=== PATIENT | male | born 1965 | race Caucasian/White ===

== ENCOUNTER 2019-09-25 17:37 | Emergency (ER) | payer MEDICAID ==
[~2019-09-25] VITALS: Ht 185.4 cm; Wt 106.6 kg
--- OUTSIDE RECORDS SUMMARY | ~2019-09-25 | XMS | Continuity of Care Document ---
Demographics + + + | Address | [address] | | | [place] [address] | + + + | Home Phone | | + + + | Preferred Language | Unknown | + + + | Marital Status | Unknown | + + + | Scientology Affiliation | Unknown | + + + | Race | Unknown | + + + | Ethnic Group | Unknown | + + + Author + + + | Author | [facility] | + + + | Organization | [facility] | + + + | Address | [address] | | | [place] [address] | + + + | Phone | Unavailable | + + + Support + + + + + | Name | Relationship | Address | Phone | + + + + + | SRAVAN Richardson | Caregiver | [facility] | | | [place] | | [place], | | | | | [place] [address] | | + + + + + | Provider, ED | Caregiver | [address] | Unavailable | | | | [facility], [place] | | | | | [address] | | + + + + + | IOANA CAMPO PCP | Caregiver | [address] | | | | | [place], [place] | | | | | [address] | | + + + + + | JAYME KIRK | Next Of Kin | [place] [address] | | + + + + + Care Team Providers + + + + | Care Digital Asset Coordinator Name | Role | Phone | + + + + | IOANA CAMPO PCP | Unavailable | | + + + + Insurance Providers + + + + + | Payer Name | Policy Number | Subscriber Name | Relationship | + + + + + | [employer] | [id number] | BOBBY STODDARD | SELF | + + + + + Chief Complaint and Reason for Visit + + + | Reason for Visit | R HIP INJ FELL ON ICE | + + + Problems Active Medical Problems + + + +--------+ | Problem | Onset Date | Recorded Date | Status | + + + +--------+ | Bronchitis | Unknown | 01/13/15 | Active | + + + +--------+ | Tobacco use | Unknown | 01/16/15 | Active | | disorder | | | | + + + +--------+ | Cough | Unknown | 01/25/15 | Active | + + + +--------+ | SOB (shortness of | Unknown | 01/25/15 | Active | | breath) | | | | + + + +--------+ | Rectal fissure | Unknown | 03/01/15 | Active | + + + +--------+ | Fall | Unknown | 01/18/16 | Active | + + + +--------+ | Contusion, hip | Unknown | 01/18/16 | Active | + + + +--------+ | Pancreatitis | Unknown | 01/29/16 | Active | + + + +--------+ | Hip pain | Unknown | 05/20/16 | Active | + + + +--------+ Medications Current Home Medications + +------+-------+-------+ + + + + | Medicati | Dose | Units | Route | Directio | Days/Qty | Instruct | Start | | on | | | | ns | | ions | Date | + +------+-------+-------+ + + + + | Cycloben | 5 | MG | PO | Twice | 5 | | 05/20/16 | | zaprine | | | | Each Day | | | | | HCL | | | | | | | | | (Flexeri | | | | | | | | | l) 5 MG | | | | | | | | | TABLET | | | | | | | | + +------+-------+-------+ + + + + | Ibuprofe | 800 | MG | PO | Three | | | | | n | | | | Times a | | | | | (Motrin) | | | | Day | | | | | 800 MG | | | | | | | | | TAB | | | | | | | | + +------+-------+-------+ + + + + | Ibuprofe | 800 | MG | PO | Three | 15 | | / | | n | | | | Times a | | | | | (Motrin) | | | | Day PRN | | | | | 800 MG | | | | Pain | | | | | TAB | | | | | | | | + +------+-------+-------+ + + + + | Naproxen | 220 | MG | PO | Daily | | | | | Sodium | | | | | | | | | (Aleve) | | | | | | | | | 220 MG | | | | | | | | | TAB | | | | | | | | + +------+-------+-------+ + + + + Past Home Medications + + + + + | Medication | Directions | Ordered | Status | + + + + + | Albuterol (Ventolin | Every 6 Hours PRN | 01/13/15 | Discontinued | | Hfa) 90 Mcg Inh | SOB | | | | Inh, 1-2 Act Inh | | | | + + + + + | Amoxicillin 500 Mg | Q8H | 05/07/03 | Discontinued | | Cap Cap, 500 Mg Po | | | | + + + + + | Cephalexin | Four Times a Day | 12/01/04 | Discontinued | | Monohydrate | | | | | (Keflex) 500 Mg Cap | | | | | Cap, 500 Mg Po | | | | + + + + + | Clindamycin Hcl | Every 6 Hours For | 11/16/13 | Discontinued | | (Cleocin Hcl) 300 | infection | | | | Mg Capsule Capsule, | | | | | 300 Mg Po | | | | + + + + + | Clotrimazole | Twice Each Day | 04/11/06 | Discontinued | | (Lotrimin) 1 % Cr | | | | | Cr, 0 Dose Top | | | | + + + + + | Docusate Sodium | Three Times a Day | 03/01/15 | Discontinued | | (Colace) 100 Mg | For Constipation | | | | Capsule Capsule, | | | | | 100 Mg Po | | | | + + + + + | Doxycycline | Twice Each Day | 01/13/15 | Discontinued | | Monohydrate | | | | | (Monodox) 100 Mg | | | | | Capsule Capsule, | | | | | 100 Mg Po | | | | + + + + + | Esomeprazole Mag | | Unknown | Discontinued | | Trihydrate (Nexium) | | | | | 20 Mg Capsule. | | | | | Capsule., | | | | + + + + + | Hydrocodone | Every 4 Hours as | 01/13/15 | Discontinued | | Bit/Acetaminophen | Needed PRN PAIN | | | | ([place] 5-325 | | | | | Tablet) 1 Each | | | | | Tablet Tablet, 1-2 | | | | | Tab Po | | | | + + + + + | Hydrocodone/Acetami | | Unknown | Discontinued | | nophen ([place] | | | | | 5MG-325MG) 5 Mg/325 | | | | | Mg Tab Tab, | | | | + + + + + | Hydrocodone/Acetami | Every 4-6 Hours PRN | 01/13/05 | Discontinued | | nophen (Vicodin) 5 | Pain | | | | Mg/500 Mg Tab Tab, | | | | | 1-2 Tab Po | | | | + + + + + | Hydrocodone/Acetami | Every 4-6 Hours PRN | 11/25/04 | Discontinued | | nophen (Vicodin) 5 | Pain | | | | Mg/500 Mg Tab Tab, | | | | | 1 Tab Po | | | | + + + + + | Hydrocodone/Acetami | Every 4-6 Hours PRN | 05/07/03 | Discontinued | | nophen (Vicodin) 5 | Pain | | | | Mg/500 Mg Tab Tab, | | | | | 1 Tab Po | | | | + + + + + | Hydrocodone/Acetami | Every 4-6 Hours PRN | 12/01/04 | Discontinued | | nophen 10-325 Mg | Pain | | | | ([place] 10-325 Mg) | | | | | 10 Mg/325 Mg Tab | | | | | Tab, 0.5-1 Tab Po | | | | + + + + + | Hydrocortisone/Pram | 5 Times Each Day | 03/01/15 | Discontinued | | oxine | PRN rectal pain | | | | (Proctofoam-Hc) 10 | | | | | Gm Foam Foam, 1 | | | | | Applic Top | | | | + + + + + | Inhaler, Assist | Every 6 Hours | 01/13/15 | Discontinued | | Devices (Space | | | | | Chamber Plus) 1 | | | | | Each Spacer Spacer, | | | | | 1 Each Mc | | | | + + + + + | Medical Equipment | As Directed | 02/09/07 | Discontinued | | (Crutches- Sprain | | | | | Ankle/Foot) Device | | | | | Device, 0 Use | | | | + + + + + | Naproxen (Naprosyn) | Twice Each Day For | 12/11/13 | Discontinued | | 500 Mg Tablet | PAIN | | | | Tablet, 500 Mg Po | | | | + + + + + | No Historical | | Unknown | Discontinued | | Medications . ., | | | | + + + + + | No Historical | | Unknown | Discontinued | | Medications . ., | | | | + + + + + | Oxycodone | Every 6 Hours PRN | 01/29/16 | Discontinued | | Hcl/Acetaminophen | Pain | | | | (Percocet 5-325 Mg | | | | | Tablet) 1 Each | | | | | Tablet Tablet, 1 | | | | | Tab Po | | | | + + + + + | Oxycodone/Acetamino | Every 4-6 Hours PRN | 02/09/07 | Discontinued | | phen (Percocet) 5 | Pain | | | | Mg/325 Mg Tab Tab, | | | | | 1-2 Tab Po | | | | + + + + + | Phe/Shark Liver | 5 Times Each Day | 03/01/15 | Discontinued | | Oil/Glycer/Pet | PRN rectal pain | | | | (Preparation H) 54 | | | | | Gm Cr Cr, 1 Applic | | | | | Pr | | | | + + + + + | Prednisone 20 Mg | Daily For | 01/25/15 | Discontinued | | Tablet Tablet, 40 | INFLAMMATION | | | | Mg Po | | | | + + + + + | Prednisone 20 Mg | DAILY X 4 DAYS For | 01/16/15 | Discontinued | | Tablet Tablet, 40 | INFLAMMATION | | | | Mg Po | | | | + + + + + | Rx Prepack | Every 4 Hours as | 12/03/05 | Discontinued | | Oxycodone/Acetamin | Needed | | | | (Percocet Prepack) | | | | | 5 Mg/325 Mg Tab | | | | | Tab, 1 Tab Po | | | | + + + + + | Verapamil Hcl | | Unknown | Discontinued | | (Verelan Pm) 100 Mg | | | | | Capcr Capcr, | | | | + + + + + Social History + + + + + | Query | Response | Start Date | Stop Date | + + + + + | Smoking status/ | Former Smoker | | | + + + + + Hospital Discharge Instructions No hospital discharge instructions. Plan of Care + + ----+ | Discharge Date | 05/20/16 | + + ----+ | Disposition | HOME | + + ----+ | Condition at Discharge | Good | + + ----+ | Instructions/Education Provided | Generic Hip Exercises-SportsMed | | | Hip Pain | | | Fall Prevention in the Home | + + ----+ | Forms Provided | ARCHITRAVE CONSENT | + + ----+ | Prescriptions | See Medications Section | + + ----+ | Referrals | NO PCP DOCTOR - | + + ----+ | Additional Instructions/Education | Follow up with your Primary Provider in | | | 1-2 days. If your symptoms worsen return | | | to the Emergency Department immediately. | | | Take medication as prescribed. DO NOT take | | | Motrin with Aleve. Take medication with | | | food. Drink fluids. | | |DO NOT take Motrin with Aleve. Take medication with audra d. | | | | | |Drink fluids. | + + ----+ Functional Status No functional status results. Allergies, Adverse Reactions, Alerts + +---------+ + +--------+ + | Allergen | Type | Severity | Reaction | Status | Last Updated | + +---------+ + +--------+ + | Sulfa | Allergy | Unknown | HIVES | Active | 05/20/16 | | (Sulfonamide | | | | | | | | | | | | | | Antibiotics) | | | | | | + +---------+ + +--------+ + | codeine | Allergy | Unknown | Hives | Active | 05/20/16 | + +---------+ + +--------+ + Immunizations No Known History of Immunizations. Vital Signs + + + + | Vital Reading | Collection Date/Time | Result | + + + + | Blood Pressure | 05/20/16 4:04pm | 148/89 | + + + + | Patient Temperature | 05/20/16 4:04pm | 97.5 | + + + + | Temperature Source | 05/20/16 4:04pm | Temporal | + + + + | Respiratory Rate | 05/20/16 4:04pm | 18 | + + + + | Pulse Rate | 05/20/16 4:04pm | 85 | + + + + | Bedside Pulse Oximetry | 01/20/17 4:04pm | 95 | + + + + | Height | 05/20/16 4:04pm | 6 ft 1 in | + + + + | Weight | 05/20/16 4:04pm | 108.86 kg | + + + + | Weight | 05/20/16 4:04pm | 240 lb | + + + + | Body Mass Index | 05/20/16 4:04pm | 31.7 | + + + + Results No known relevant diagnostic tests, laboratory data and/or discharge summary. Procedures No Known History of Procedures. Encounters + + + + + + | Encounter | Location | Arrival/Admit | Discharge/Depar | Attending | | | | Date | t Date | Provider | + + + + + + | Departed | [facility] | 05/20/16 2:38pm | 05/20/16 6:45pm | SRAVAN Richardson | | Emergency | [facility] | | | [place] | + + + + + + + + | Encounter Diagnosis | + + | Falls | + + | Hip pain | + +"
--- OUTSIDE RECORDS SUMMARY | ~2019-09-25 | XMS | Clinical Summary ---
Demographics + + + | Address | [address] | | | [place] [address] | + + + | Home Phone | | + + + | Preferred Language | Unknown | + + + | Marital Status | S | + + + | Yazidi Affiliation | Unknown | + + + | Race | White | + + + | Ethnic Group | Not or | + + + Author + + + | Author | [facility] | + + + | Organization | [facility] | + + + | Address | [address] | | | [place] [address] | + + + | Phone | Unavailable | + + + Care Team Providers + +------+ + | Care Talent Acquisition Specialist Name | Role | Phone | + +------+ + | Marisel Hunt | PCP | | + +------+ + Conditions or Problems +---------+---------+---------+---------+---------+---------+---------+---------+---------+ | Problem | Problem | Onset | Status | Entry | Provide | Comment | Standar | Annotat | | Name | Code | Date | | Date | r | | d | e | | | | | | | | | Descrip | | | | | | | | | | tion | | +---------+---------+---------+---------+---------+---------+---------+---------+---------+ | ANAL | [id number] | | Active | | Marielle | | Anal | per | | FISSURE | 6 | /30 | | /30 | Kobe | | fissure | Alexander | | | (SNOMED | | | | CCMA | | | [place] | | | CT) | | | | | | | MD | +---------+---------+---------+---------+---------+---------+---------+---------+---------+ | LESION | [id number] | | Active | | David | | Nasal | | | OF | | | | / | Chicker | | septum | | | NASAL | (SNOMED | | | | ing [place] | | finding | | | SEPTUM | CT) | | | | | | | | +---------+---------+---------+---------+---------+---------+---------+---------+---------+ | HIP | [id number] | | Active | | Prabhakar | | Hip | | | PAIN, | 2 | /26 | | /26 | | | pain | | | LEFT | (SNOMED | | | | VanAnro | | | | | | CT) | | | | oy MD | | | | +---------+---------+---------+---------+---------+---------+---------+---------+---------+ | CONTROL | [id number] | | Active | | Marisel | | Drug | | | LED | 03 | /19 | | /19 | Rubio | | therapy | | | SUBSTAN | (SNOMED | | | | COMPANY MANAGER | | | | | CE | CT) | | | | | | finding | | | AGREEME | | | | | | | | | | NT | | | | | | | | | | SIGNED | | | | | | | | | +---------+---------+---------+---------+---------+---------+---------+---------+---------+ | NASAL | [id number] | | Active | | Marisel | | Mass of | | | MASS | 09 | /19 | | /19 | Rubio | | nose | | | | (SNOMED | | | | COMPANY MANAGER | | | | | | CT) | | | | | | | | +---------+---------+---------+---------+---------+---------+---------+---------+---------+ | COSTOCH | [id number] | | Active | | Marisel | | Costal | | | ONDRITI | 4 | / | | | Rubio | | chondri | | | S, LEFT | (SNOMED | | | | COMPANY MANAGER | | tis | | | | CT) | | | | | | | | +---------+---------+---------+---------+---------+---------+---------+---------+---------+ | URI | [id number] | | Active | | Marisel | | Upper | | | | 9 | | | | Rubio | | respira | | | | (SNOMED | | | | COMPANY MANAGER | | tory | | | | CT) | | | | | | infecti | | | | | | | | | | on | | +---------+---------+---------+---------+---------+---------+---------+---------+---------+ | RIB | [id number] | | Active | | Marisel | | Rib | | | PAIN ON | 02 | | | | Rubio | | pain | | | LEFT | (SNOMED | | | | COMPANY MANAGER | | | | | SIDE | CT) | | | | | | | | +---------+---------+---------+---------+---------+---------+---------+---------+---------+ | POST- | [id number] | | Active | | Marisel | | Postvir | | | RAL | 04 | / | | / | Rubio | | al | | | COUGH | (SNOMED | | | | COMPANY MANAGER | | cough | | | SYNDROM | CT) | | | | | | | | | E | | | | | | | | | +---------+---------+---------+---------+---------+---------+---------+---------+---------+ | EPISTAX | [id number] | | Active | | David | | Epistax | | | IS, | 1 | / | | | Chicker | | is | | | RECURRE | (SNOMED | | | | ing [place] | | | | | NT | CT) | | | | | | | | +---------+---------+---------+---------+---------+---------+---------+---------+---------+ | NASAL | [id number] | | Active | | David | | Nasal | | | POLYP | 5 | | | | Chicker | | polyp | | | | (SNOMED | | | | ing [place] | | | | | | CT) | | | | | | | | +---------+---------+---------+---------+---------+---------+---------+---------+---------+ | BRONCHI | [id number] | | Active | | David | | Bronchi | | | TIS | 4 | /19 | | /19 | Chicker | | tis | | | | (SNOMED | | | | ing [place] | | | | | | CT) | | | | | | | | +---------+---------+---------+---------+---------+---------+---------+---------+---------+ | ACUTE | [id number] | | Active | | David | | Common | | | NASOPHA | 6 | /19 | | /19 | Chicker | | cold | | | RYNGITI | (SNOMED | | | | ing [place] | | | | | S | CT) | | | | | | | | +---------+---------+---------+---------+---------+---------+---------+---------+---------+ | ADJUSTM | [id number] | | Active | | Mariah | | Adjustm | | | ENT | 0 | /24 | | / | Kayleigh | | ent | | | DISORDE | (SNOMED | | | | CSWA | | disorde | | | R WITH | CT) | | | | | | r with | | | ANXIETY | | | | | | | anxious | | | | | | | | | | mood | | +---------+---------+---------+---------+---------+---------+---------+---------+---------+ | CHRONIC | [id number] | | Active | | Faina | | Chronic | | | PAIN | | / | | / | [place] | | pain | | | SYNDROM | (SNOMED | | | | SAWMILL MOULDER OPERATOR | | syndrom | | | E | CT) | | | | | | e | | +---------+---------+---------+---------+---------+---------+---------+---------+---------+ | PAIN | [id number] | | Active | | Faina | | Psychal | | | DISORDE | | / | | / | [place] | | urban | | | R | (SNOMED | | | | SAWMILL MOULDER OPERATOR | | | | | ASSOCIA | CT) | | | | | | | | | FREDA | | | | | | | | | | WITH | | | | | | | | | | PSYCHOL | | | | | | | | | | OGICAL | | | | | | | | | | FACTORS | | | | | | | | | +---------+---------+---------+---------+---------+---------+---------+---------+---------+ | ANEMIA | [id number] | | Active | | Florecita | | Anemia | | | | 00 | /27 | | /27 | Suhr | | | | | | (SNOMED | | | | COMPANY MANAGER-C | | | | | | CT) | | | | | | | | +---------+---------+---------+---------+---------+---------+---------+---------+---------+ | APHTHOU | [id number] | | Active | | Charlen | | Aphthou | | | S ULCER | | | | | e Pimentel | | s ulcer | | | OF | (SNOMED | | | | CCMA | | of | | | MOUTH | CT) | | | | | | mouth | | +---------+---------+---------+---------+---------+---------+---------+---------+---------+ | DIFFICU | [id number] | | Active | | Nayan | | Walking | | | LTY IN | 08 | /20 | | /20 | Hersche | | | | | WALKING | (SNOMED | | | | r DO | | disabil | | | | CT) | | | | | | ity | | +---------+---------+---------+---------+---------+---------+---------+---------+---------+ | TOTAL | [id number] | | Active | | Florecita | | Total | | | HIP | 7 | /17 | | /17 | Suhr | | replace | | | ARTHROP | (SNOMED | | | | COMPANY MANAGER-C | | ment of | | | LASTY, | CT) | | | | | | hip | | | LEFT | | | | | | | | | +---------+---------+---------+---------+---------+---------+---------+---------+---------+ | OSTEOAR | M19.90 | | Resolve | | Florecita | | Unspeci | | | THROSIS | (ICD-10 | /02 | d | /02 | Suhr | | fied | | | , | -CM) | | | | COMPANY MANAGER-C | | osteoar | | | LOCALIZ | | | | | | | thritis | | | ED, NOT | | | | | | | , | | | | | | | | | | unspeci | | | SPECIFI | | | | | | | fied | | | ED | | | | | | | site | | | WHETHER | | | | | | | | | | | | | | | | | | | | PRIMARY | | | | | | | | | | OR | | | | | | | | | | SECONDA | | | | | | | | | | RY, | | | | | | | | | | INVOLVI | | | | | | | | | | NG | | | | | | | | | | ANKLE | | | | | | | | | | AND | | | | | | | | | | FOOT | | | | | | | | | +---------+---------+---------+---------+---------+---------+---------+---------+---------+ | FOOT | [id number] | | Resolve | | Florecita | | Foot | | | PAIN, | 7 | /15 | d | /15 | Suhr | | pain | | | RIGHT | (SNOMED | | | | COMPANY MANAGER-C | | | | | | CT) | | | | | | | | +---------+---------+---------+---------+---------+---------+---------+---------+---------+ | RECTAL | [id number] | | Resolve | | Florecita | | Rectal | per | | BLEEDIN | 2 | / | d | /15 | Suhr | | hemorrh | Sacred | | G | (SNOMED | | | | COMPANY MANAGER-C | | age | Heart | | | CT) | | | | | | | [facility] | | | | | | | | | | nd ER | | | | | | | | | | visit | | | | | | | | | | 05/11/14 | +---------+---------+---------+---------+---------+---------+---------+---------+---------+ | ANAL | [id number] | | Resolve | | Florecita | | Anal | per Dr. | | FISSURE | 6 | /30 | d | /30 | Suhr | | fissure | Alexander | | | (SNOMED | | | | COMPANY MANAGER-C | | | [place] | | | CT) | | | | | | | MD | +---------+---------+---------+---------+---------+---------+---------+---------+---------+ | NEW | [id number] | | Resolve | | Florecita | | Procedu | | | PATIENT | 03 | /24 | d | /24 | Suhr | | re | | | | (SNOMED | | | | COMPANY MANAGER-C | | carried | | | CONSULT | CT) | | | | | | out on | | | ATION | | | | | | | | | | | | | | | | | subject | | +---------+---------+---------+---------+---------+---------+---------+---------+---------+ | AVASCUL | [id number] | | Active | | Prabhakar | | Avascul | | | AR | 03 | / | | / | | | ar | | | NECROSI | (SNOMED | | | | VanMarinero | | necrosi | | | S OF | CT) | | | | oy MD | | s of | | | FEMORAL | | | | | | | the | | | HEAD | | | | | | | head of | | | | | | | | | | femur | | +---------+---------+---------+---------+---------+---------+---------+---------+---------+ | URI | [id number] | | Inactiv | | Loraine | | Upper | | | | 9 | /03 | e | /03 | Sutherland | | respira | | | | (SNOMED | | | | PA-C | | tory | | | | CT) | | | | | | infecti | | | | | | | | | | on | | +---------+---------+---------+---------+---------+---------+---------+---------+---------+ | HYPERTE | [id number] | | Active | | Rudy | | Hyperte | | | NSION | 3 | | | | Monteir | | nsive | | | | (SNOMED | | | | o MD | | disorde | | | | CT) | | | | | | r | | +---------+---------+---------+---------+---------+---------+---------+---------+---------+ | ELEVATE | [id number] | | Active | | Rudy | | Hypergl | | | D BLOOD | 7 | / | | | Monteir | | ycemia | | | SUGAR | (SNOMED | | | | o MD | | | | | | CT) | | | | | | | | +---------+---------+---------+---------+---------+---------+---------+---------+---------+ | NEW | [id number] | | Removed | | Rudy | | Procedu | | | PATIENT | 03 | | | | Monteir | | re | | | | (SNOMED | | | | o MD | | carried | | | CONSULT | CT) | | | | | | out on | | | ATION | | | | | | | | | | | | | | | | | subject | | +---------+---------+---------+---------+---------+---------+---------+---------+---------+ | SCREENI | [id number] | | Resolve | | Rudy | | Alcohol | | | NG FOR | | | d | | Monteir | | | | | ALCOHOL | (SNOMED | | | | o MD | | consump | | | ISM | CT) | | | | | | tion | | | | | | | | | | screeni | | | | | | | | | | ng | | +---------+---------+---------+---------+---------+---------+---------+---------+---------+ | SCREENI | [id number] | | Resolve | | Rudy | | Alcohol | | | NG FOR | | | d | | Monteir | | | | | ALCOHOL | (SNOMED | | | | o MD | | consump | | | ISM | CT) | | | | | | tion | | | | | | | | | | screeni | | | | | | | | | | ng | | +---------+---------+---------+---------+---------+---------+---------+---------+---------+ | NICOTIN | [id number] | | Active | | Prabhakar | | Nicotin | | | E | 8 | /08 | | /08 | | | e | | | ADDICTI | (SNOMED | | | | VanAnro | | depende | | | ON | CT) | | | | oy MD | | nce | | +---------+---------+---------+---------+---------+---------+---------+---------+---------+ | ASEPTIC | [id number] | | Inactiv | | Ann | | Aseptic | | | | 05 | / | e | /28 | Yarbrou | | | | | NECROSI | (SNOMED | | | | gh RN | | necrosi | | | S OF | CT) | | | | | | s of | | | LEFT | | | | | | | bone of | | | HIP | | | | | | | hip | | +---------+---------+---------+---------+---------+---------+---------+---------+---------+ | URI | [id number] | | Inactiv | | Phan | | Upper | | | | 9 | / | e | | Middlek | | respira | | | | (SNOMED | | | | auff | | tory | | | | CT) | | | | COMPANY MANAGER | | infecti | | | | | | | | | | on | | +---------+---------+---------+---------+---------+---------+---------+---------+---------+ | SORE | [id number] | | Inactiv | | Phan | | Pain in | | | THROAT | 03 | /19 | e | /19 | Middlek | | throat | | | | (SNOMED | | | | auff | | | | | | CT) | | | | COMPANY MANAGER | | | | +---------+---------+---------+---------+---------+---------+---------+---------+---------+ | OTHER | [id number] | | Active | | Prabhakar | | Bone | | | OSTEONE | 03 | /05 | | /05 | | | necrosi | | | CROSIS, | (SNOMED | | | | VanAnro | | s | | | LEFT | CT) | | | | oy MD | | | | | FEMUR | | | | | | | | | +---------+---------+---------+---------+---------+---------+---------+---------+---------+ | OPIOID | [id number] | | Active | | Phan | | Nondepe | | | ABUSE, | 05 | /28 | | /28 | Middlek | | ndent | | | CONTINU | (SNOMED | | | | auff | | opioid | | | OUS | CT) | | | | COMPANY MANAGER | | abuse, | | | | | | | | | | continu | | | | | | | | | | ous | | +---------+---------+---------+---------+---------+---------+---------+---------+---------+ | HIP | [id number] | | Active | | Phan | | Hip | | | PAIN, | 2 | /28 | | /28 | Middlek | | pain | | | LEFT | (SNOMED | | | | auff | | | | | | CT) | | | | COMPANY MANAGER | | | | +---------+---------+---------+---------+---------+---------+---------+---------+---------+ | UPPER | [id number] | | Inactiv | | Malachi K | | Viral | | | RESPIRA | 04 | /17 | e | /17 | Dye | | upper | | | TORY | (SNOMED | | | | ACNP | | respira | | | INFECTI | CT) | | | | | | tory | | | ON, | | | | | | | tract | | | VIRAL | | | | | | | infecti | | | | | | | | | | on | | +---------+---------+---------+---------+---------+---------+---------+---------+---------+ | BRACHIA | [id number] | | Inactiv | | Malachi Levin | | Brachia | | | L | | | e | | Dye | | l | | | NEURITI | (SNOMED | | | | ACNP | | neuriti | | | S OR | CT) | | | | | | s | | | RADICUL | | | | | | | | | | ITIS | | | | | | | | | | NOS | | | | | | | | | +---------+---------+---------+---------+---------+---------+---------+---------+---------+ | RIB | [id number] | | Inactiv | | Malachi Levin | | Rib | | | PAIN | | | | | Dye | | pain | | | | (SNOMED | | | | ACNP | | | | | | CT) | | | | | | | | +---------+---------+---------+---------+---------+---------+---------+---------+---------+ | LESION | [id number] | | Active | | Clementina | | Plantar | | | OF | 04 | / | | /02 | | | nerve | | | PLANTAR | (SNOMED | | | | Reppenh | | lesion | | | NERVE | CT) | | | | agen RN | | | | +---------+---------+---------+---------+---------+---------+---------+---------+---------+ | OSTEOAR | M19.90 | | Removed | | Clementina | | Unspeci | | | THROSIS | (ICD-10 | / | | /02 | | | fied | | | , | -CM) | | | | Reppenh | | osteoar | | | LOCALIZ | | | | | agen RN | | thritis | | | ED, NOT | | | | | | | , | | | | | | | | | | unspeci | | | SPECIFI | | | | | | | fied | | | ED | | | | | | | site | | | WHETHER | | | | | | | | | | | | | | | | | | | | PRIMARY | | | | | | | | | | OR | | | | | | | | | | SECONDA | | | | | | | | | | RY, | | | | | | | | | | INVOLVI | | | | | | | | | | NG | | | | | | | | | | ANKLE | | | | | | | | | | AND | | | | | | | | | | FOOT | | | | | | | | | +---------+---------+---------+---------+---------+---------+---------+---------+---------+ | ANAL | [id number] | | Removed | | Karissa | | Anal | per | | FISSURE | 6 | | | /30 | Sea | | fissure | Alexander | | | (SNOMED | | | | RN | | | [place] | | | CT) | | | | | | | MD | +---------+---------+---------+---------+---------+---------+---------+---------+---------+ | RECTAL | [id number] | | Removed | | Rodrigo | | Rectal | per | | BLEEDIN | 2 | / | | / | Steiner | | hemorrh | Sacred | | G | (SNOMED | | | | on | | age | Heart | | | CT) | | | | | | | [facility] | | | | | | | | | | nd ER | | | | | | | | | | visit | | | | | | | | | | 05/11/14 | +---------+---------+---------+---------+---------+---------+---------+---------+---------+ | SCREENI | [id number] | | Removed | | Juan | | Alcohol | | | NG FOR | | | | | Vishal | | | | | ALCOHOL | (SNOMED | | | | s DO | | consump | | | ISM | CT) | | | | | | tion | | | | | | | | | | screeni | | | | | | | | | | ng | | +---------+---------+---------+---------+---------+---------+---------+---------+---------+ | SCREENI | [id number] | | Removed | | Andriy | | Alcohol | | | NG FOR | | | | | Padovic | | | | | ALCOHOL | (SNOMED | | | | h COMPANY MANAGER | | consump | | | ISM | CT) | | | | | | tion | | | | | | | | | | screeni | | | | | | | | | | ng | | +---------+---------+---------+---------+---------+---------+---------+---------+---------+ | FOOT | [id number] | | Removed | | Skye | | Foot | | | PAIN, | 7 | /15 | | /15 | Epifanio | | pain | | | RIGHT | (SNOMED | | | | COMPANY MANAGER | | | | | | CT) | | | | | | | | +---------+---------+---------+---------+---------+---------+---------+---------+---------+ Medications + + + + + + + + | Medication | Instructio | Start Date | Stop Date | Generic | NDC | Provider | | | ns | | | Name | | | + + + + + + + + | BISAC-EVAC | 1 | | | BISACODYL | [id number] | Florecita | | 10 MG | suppositor | | | | 1 | Suhr COMPANY MANAGER-C | | SUPP | y QHS PRN | | | | | | | | constipati | | | | | | | | on | | | | | | + + + + + + + + | GLORIA TUTTLE | | | | GLORIA TUTTLE | | Andriy | | | | | | | | Nakia | | | | | | | | COMPANY MANAGER | + + + + + + + + | MIRALAX | 17grams | | | POLYETHYLE | [id number] | Melvina | | POWD | mixed in | | | NE GLYCOL | 2 | Pimentel CCMA | | | 6-8ounces | | | 3350 | | | | | of fluid | | | | | | | | po daily | | | | | | + + + + + + + + | AMBERDERM | Apply prn | | | BALSAM | [id number] | Nayan | | 650-72.5 | to lower | | | JOSEPH-GEOVANY | 3 | [place] | | MG/0.82ML | lip for | | | R OIL | | DO | | AERO | pain or | | | | | | | | irritation | | | | | | | | . | | | | | | + + + + + + + + | BI-MART | | | | BI-MART | | Florecita | | RSBG | | | | RSBG | | Mackenzie GUPTAP-C | + + + + + + + + | CHANTIX | follow | | | VARENICLIN | [id number] | Davi | | STARTING | instructio | | | E TARTRATE | 3 | Edison DO | | MONTH LIZA | [place] on box | | | | | | | 0.5 MG X | | | | | | | | 11 & 1 MG | | | | | | | | X 42 TABS | | | | | | | + + + + + + + + | CEPACOL | 1 lozenge | | | BENZOCAINE | [id number] | Karma | | SORE | every 2 | | | -MENTHOL | 0 | [place] | | THROAT | hours as | | | | | | | 10-2.1 MG | needed for | | | | | | | LOZG | sore | | | | | | | | throat | | | | | | + + + + + + + + | PAIN | signed | | | PAIN | | Cyndi Crowley | | AGREEMENT | 1.2.15 | | | AGREEMENT | | NCMA | | D RATHER | | | | D RATHER | | | + + + + + + + + | UDS | 1.2.15 | | | UDS | | Cyndi Crowley | | | consistent | | | | | NCMA | + + + + + + + + | COLACE 100 | 1 cap BID | | | DOCUSATE | [id number] | Florecita | | MG CAPS | | | | SODIUM | 0 | Suhr COMPANY MANAGER-C | + + + + + + + + | [facility] LYSINE | take 1 tab | | | LYSINE | [id number] | David | | 1000 MG | daily | | | | 9 | [place] | | TABS | | | | | | [place] | + + + + + + + + | CHANTIX 1 | take 1tab | | | VARENICLIN | [id number] | Davi | | MG TABS | po daily | | | E TARTRATE | 6 | Thadyne DO | + + + + + + + + | PAIN | terminated | | | PAIN | | Cyndi Crowley | | AGREEMENT | agreement | | | AGREEMENT | | NCMA | | D RATHER | on | | | D RATHER | | | | | 1.12.15 | | | | | | | | signed | | | | | | | | 1.2.15 | | | | | | + + + + + + + + | CYCLOBENZA | 1 tab BID | | | CYCLOBENZA | [id number] | Florecita | | YESSY HCL | PRN muscle | | | YESSY HCL | 1 | Suhr COMPANY MANAGER-C | | 10 MG TABS | pain | | | | | | + + + + + + + + | NORCO | 1 every 8 | | | HYDROCODON | [id number] | Rudy | | 5-325 MG | hours as | | | E-ACETAMIN | 1 | Yaquelin | | TABS | needed | | | OPHEN | | MD | + + + + + + + + | NORCO | 1 tab po | | | HYDROCODON | [id number] | Karma | | 5-325 MG | QD | | | E-ACETAMIN | 1 | Berenice [place] | | TABS | | | | OPHEN | | | + + + + + + + + | PSEUDOEPHE | 1-2 | | | PSEUDOEPHE | [id number] | Marisel | | DRINE HCL | tablets | | | DRINE HCL | 2 | Rubio COMPANY MANAGER | | 30 MG TABS | every 6 | | | | | | | | hours as | | | | | | | | needed not | | | | | | | | to exceed | | | | | | | | 240Mg/day | | | | | | + + + + + + + + | TRAMADOL | take 1 by | | | TRAMADOL | [id number] | Marisel | | HCL 50 MG | mouth | | | HCL | 1 | Rubio COMPANY MANAGER | | TABS | every 6 | | | | | | | | hours | | | | | | + + + + + + + + | COLACE 100 | Take 1 bid | | | DOCUSATE | [id number] | Davi | | MG CAPS | prn | | | SODIUM | 0 | Edison DO | | | constipati | | | | | | | | on | | | | | | + + + + + + + + | OXYCODONE | 3-4 per | | | OXYCODONE | [id number] | Karma | | HCL 10 MG | day | | | HCL | 1 | Berenice CONRAD | | TABS | | | | | | | + + + + + + + + | OXYCODONE | 1 tab q 4 | | | OXYCODONE | [id number] | Karma | | HCL 15 MG | hrs PRN | | | HCL | 1 | Berenice CONRAD | | TABS | pain | | | | | | + + + + + + + + | HYDROCODON | Take 1 tab | | | HYDROCODON | [id number] | Melvina | | E-ACETAMIN | po | | | E-ACETAMIN | 1 | Pimentel CCMA | | OPHEN | BID/PRN | | | OPHEN | | | | 7.5-325 MG | | | | | | | | TABS | | | | | | | + + + + + + + + | TRAMADOL | take 1 tab | | | TRAMADOL | [id number] | Karma | | HCL 50 MG | nightly | | | HCL | 1 | [place] | | TABS | | | | | | | + + + + + + + + | NO | | | | NO | | Prabhakar | | SCHEDULED | | | | SCHEDULED | | VanAnrooy | | 2 DRUGS | | | | 2 DRUGS | | MD | | PER | | | | PER | | | | | | | | | | | | S. | | | | S. | | | + + + + + + + + | CSA | | | | CSA | | David | | SRCHC | | | | SRCHC | | Benedict | | | | | | | | MA | + + + + + + + + | OXYCODONE- | Take 1 tab | | | OXYCODONE- | [id number] | Phan | | ACETAMINOP | by mouth | | | ACETAMINOP | 5 | Middlekauf | | HEN 5-325 | three | | | HEN | | f COMPANY MANAGER | | MG TABS | times per | | | | | | | | day as | | | | | | | | needed for | | | | | | | | severe | | | | | | | | pain. | | | | | | + + + + + + + + | ELAVIL 25 | Take 1 | | | AMITRIPTYL | [id number] | Marisel | | MG TABS | tab po QHS | | | INE HCL | 0 | Rubio COMPANY [employer] | + + + + + + + + | GUAIFENESI | take 1 to | | | GUAIFENESI | [id number] | Marisel | | N 200 MG | 2 tablets | | | N | 0 | [employer] | | TABS | by mouth | | | | | | | | every 4 | | | | | | | | hours for | | | | | | | | cough. not | | | | | | | | to exceed | | | | | | | | 2400Mg in | | | | | | | | 1 day | | | | | | + + + + + + + + | PROAIR HFA | Inhale 2 | | | ALBUTEROL | [phone] | Malachi Levin | | 108 (90 | puffs | | | SULFATE | 2 | Dye | | Base) | every 4 | | | | | ACNP | | MCG/ACT | hours as | | | | | | | AERS | needed for | | | | | | | | wheezing | | | | | | | | or chest | | | | | | | | tightness. | | | | | | + + + + + + + + | RECTIV 0.4 | 1 inch | | | NITROGLYCE | [id number] | Davi | | % OINT | film | | | RIN | 0 | Hoyne DO | | | intra-anal | | | | | | | | ly q 12 | | | | | | | | hrs up to | | | | | | | | 3 weeks | | | | | | | | for | | | | | | | | chronic | | | | | | | | anal | | | | | | | | fissure | | | | | | | | and | | | | | | | | associated | | | | | | | | pain | | | | | | + + + + + + + + | LISINOPRIL | one time | | | LISINOPRIL | | Rudy | | 20MG | per day | | | 20MG | | Yaquelin | | | | | | | | MD | + + + + + + + + | COMPRESSIO | put on in | | | COMPRESSIO | | David | | N HOSE | the | | | N HOSE | | Chickering | | MEN'S | morning | | | MEN'S | | [place] | | | and take | | | | | | | | off at | | | | | | | | bedtime | | | | | | + + + + + + + + | NORCO | 4-6 per | | | HYDROCODON | [id number] | Prabhakar | | 5-325 MG | day | | | E-ACETAMIN | 1 | VanMelanie | | TABS | | | | OPHEN | | MD | + + + + + + + + | PERCOCET | take 1 by | | | OXYCODONE- | [id number] | Marisel | | 5-325 MG | mouth two | | | ACETAMINOP | 0 | [employer] | | TABS | times per | | | HEN | | | | | day for | | | | | | | | pain. Must | | | | | | | | last 30 | | | | | | | | days | | | | | | + + + + + + + + | COUMADIN 4 | 1 tab | | | WARFARIN | [phone] | David | | MG TABS | daily | | | SODIUM | 0 | Chickering | | | | | | | | [place] | + + + + + + + + | UDS | 1.2.15 | | | UDS | | Prabhakar | | | consistent | | | | | Uzma | | | | | | | | MD | + + + + + + + + | AMBERDERM | Apply prn | | | BALSAM | [phone] | David | | [phone] | to lower | | | JOSEPH-GEOVANY | 3 | Chickering | | MG/0.82ML | lip for | | | R OIL | | MA | | AERO | pain or | | | | | | | | irritation | | | | | | | | . | | | | | | + + + + + + + + | MIRALAX | 17grams | | | POLYETHYLE | [phone] | David | | POWD | mixed in | | | NE GLYCOL | 2 | Chickering | | | 6-8ounces | | | 3350 | | [place] | | | of fluid | | | | | | | | po daily | | | | | | + + + + + + + + | COUMADIN 4 | 1 tab | | | WARFARIN | [id number] | Florecita | | MG TABS | daily | | | SODIUM | 0 | [employer] MANAGER-C | + + + + + + + + | OXYCODONE | 3-4 per | | | OXYCODONE | [id number] | Rudy | | HCL 10 MG | day | | | HCL | 1 | Yaquelin | | TABS | | | | | | MD | + + + + + + + + | TESSALON | Take three | | | BENZONATAT | [id number] | Karma | | PERLES 100 | times a | | | E | 1 | Berenice [place] | | MG CAPS | day as | | | | | | | | needed for | | | | | | | | cough. | | | | | | | | Swallow | | | | | | | | capsule | | | | | | | | whole. | | | | | | + + + + + + + + | IBUPROFEN | three | | | IBUPROFEN | [id number] | Prabhakar | | 600 MG | times per | | | | 0 | Uzma | | TABS | day | | | | | MD | + + + + + + + + | LISINOPRIL | 1 tab one | | | LISINOPRIL | [id number] | David | | 20 MG | time per | | | | 1 | Chickering | | TABS | day | | | | | MA | + + + + + + + + | [facility] | prn | | | MAGNESIUM | [id number] | David | | OF | constipati | | | HYDROXIDE | 5 | Chickering | | MAGNESIA | on | | | | | MA | | 1200 | | | | | | | | MG/15ML | | | | | | | | SUSP | | | | | | | + + + + + + + + | OXYCODONE- | 1 tab po q | | | OXYCODONE- | [id number] | Davi | | ACETAMINOP | 6 hrs prn | | | ACETAMINOP | 5 | Thadyne DO | | HEN 5-325 | rectal | | | HEN | | | | MG TABS | pain | | | | | | + + + + + + + + | COLACE 100 | 1 cap BID | | | DOCUSATE | [id number] | David | | MG CAPS | | | | SODIUM | 0 | Chickering | | | | | | | | [place] | + + + + + + + + | TYLENOL 8 | 1 tablet | | | ACETAMINOP | [id number] | Nayan | | HOUR | every 4 | | | HEN | 1 | [place] | | ARTHRITIS | hours as | | | | | DO | | PAIN 650 | needed for | | | | | | | MG CR-TABS | | | | | | | | | pain/fever | | | | | | + + + + + + + + | GRX HICORT | 1 | | | HYDROCORTI | [id number] | Davi | | 25 25 MG | suppositor | | | SONE | 2 | Hoyne DO | | SUPP | y per | | | ACETATE | | | | | rectum q | | | | | | | | 12 hrs for | | | | | | | | 2 weeks | | | | | | | | prn for | | | | | | | | rectal | | | | | | | | pain and | | | | | | | | bleeding. | | | | | | + + + + + + + + | BI-MART | | | | BI-MART | | Valery | | RSBG | | | | RSBG | | Vancill | | | | | | | | CCMA | + + + + + + + + | GLORIA TUTTLE | | | | GLORIA TUTTLE | | Prabhakar | | | | | | | | Uzma | | | | | | | | MD | + + + + + + + + | TRAMADOL | 1 TAB Q6 | | | TRAMADOL | [id number] | Rudy | | HCL 50 MG | HRS PRN | | | HCL | 1 | Yaquelin | | TABS | PAIN | | | | | MD | + + + + + + + + | [facility] | 5 ml po | | | MAGNESIUM | 6541086491 | Davi | | OF | ijeoma prn | | | HYDROXIDE | 6 | Hoyne DO | | MAGNESIA | constipati | | | | | | | 400 MG/5ML | on | | | | | | | SUSP | | | | | | | + + + + + + + + | CLINDAMYCI | 1 tab by | | | CLINDAMYCI | 7561930790 | Tommy | | N HCL 150 | mouth by | | | N HCL | 1 | Rather PA | | MG CAPS | mouth | | | | | | | | every 4 | | | | | | | | hours | | | | | | + + + + + + + + | COMPRESSIO | put on in | | | COMPRESSIO | | Melvina | | N HOSE | the | | | N HOSE | | Margarito CCMA | | MEN'S | morning | | | MEN'S | | | | | and take | | | | | | | | off at | | | | | | | | bedtime | | | | | | + + + + + + + + | PROAIR HFA | Inhale 2 | | | ALBUTEROL | [phone] | Phan | | 108 (90 | puffs | | | SULFATE | 2 | Middlekauf | | Base) | every 4 | | | | | f COMPANY MANAGER | | MCG/ACT | hours as | | | | | | | AERS | needed for | | | | | | | | wheezing | | | | | | | | or chest | | | | | | | | tightness. | | | | | | + + + + + + + + | PERCOCET | 1-2 tab q | | | OXYCODONE- | [id number] | Florecita | | 7.5-325 MG | 4 hrs for | | | ACETAMINOP | 0 | Suhr [employer] MANAGER-C | | TABS | pain, hold | | | HEN | | | | | if | | | | | | | | somnolent | | | | | | | | or asleep. | | | | | | + + + + + + + + | PAIN | terminated | | | PAIN | | Franny | | AGREEMENT | agreement | | | AGREEMENT | | Vanessa NCMA | | D RATHER | on | | | D RATHER | | | | | 1.12.15 | | | | | | | | signed | | | | | | | | 1.2.15 | | | | | | + + + + + + + + | HYDROCODON | 1 po bid | | | HYDROCODON | [id number] | Cyndi Crowley | | E-ACETAMIN | prn severe | | | E-ACETAMIN | 1 | NCMA | | OPHEN | pain | | | OPHEN | | | | 5-325 MG | | | | | | | | TABS | | | | | | | + + + + + + + + | NORCO | 4-6 per | | | HYDROCODON | 6125157792 | Karma | | 5-325 MG | day | | | E-ACETAMIN | 1 | Berenice CONRAD | | TABS | | | | OPHEN | | | + + + + + + + + | TRAMADOL | 1-2 TAB | | | TRAMADOL | 4979477130 | David | | HCL 50 MG | BID PRN | | | HCL | 1 | Chickering | | TABS | PAIN | | | | | [place] | + + + + + + + + | GUAIFENESI | 1 tab | | | GUAIFENESI | 8904774065 | Karma | | N 400 MG | every 4 | | | N | 0 | Berenice [place] | | TABS | hours as | | | | | | | | needed for | | | | | | | | | | | | | | | | cough/yaw | | | | | | | | estion | | | | | | + + + + + + + + | TRAMADOL | Take 1 tab | | | TRAMADOL | [id number] | Davi | | HCL 50 MG | q 6 hours | | | HCL | 1 | Edison DO | | TABS | prn pain | | | | | | + + + + + + + + | CHANTIX 1 | 2tabs po | | | VARENICLIN | 6752344982 | Rudy | | MG TABS | qd | | | E TARTRATE | 6 | Yaquelin | | | | | | | | MD | + + + + + + + + | BISAC-EVAC | 1 | | | BISACODYL | 6072516544 | David | | 10 MG | suppositor | | | | 1 | Chickering | | SUPP | y QHS PRN | | | | | MA | | | constipati | | | | | | | | on | | | | | | + + + + + + + + | PSEUDOEPHE | Take 1 tab | | | PSEUDOEPHE | [phone] | Phan | | DRINE HCL | by mouth | | | DRINE HCL | 2 | Middlekauf | | 30 MG TABS | four times | | | | | f COMPANY MANAGER | | | per day | | | | | | | | as needed | | | | | | | | for sinus | | | | | | | | congestion | | | | | | | | . | | | | | | + + + + + + + + | NO | | | | NO | | Franny | | SCHEDULED | | | | SCHEDULED | | Vanessa NCMA | | 2 DRUGS | | | | 2 DRUGS | | | | PER | | | | PER | | | | | | | | | | | | S. | | | | S. | | | + + + + + + + + | NORCO | 1tab by | | | HYDROCODON | 4947049981 | David | | 7.5-325 MG | mouth one | | | E-ACETAMIN | 1 | Chickering | | TABS | time per | | | OPHEN | | [place] | | | day as | | | | | | | | needed | | | | | | + + + + + + + + | FLONASE | 1 spray | | | FLUTICASON | 6684589368 | Marisel | | ALLERGY | eash | | | E | 2 | Rubio COMPANY MANAGER | | RELIEF 50 | nostril | | | PROPIONATE | | | | MCG/ACT | once a day | | | | | | | SUSP | | | | | | | + + + + + + + + | DOXYCYCLIN | Take 1 | | | DOXYCYCLIN | 6739012537 | Malachi Levin | | E HYCLATE | capsule by | | | E HYCLATE | 5 | Dye | | 100 MG | mouth two | | | | | ACNP | | CAPS | times per | | | | | | | | day for | | | | | | | | ten days. | | | | | | + + + + + + + + | LISINOPRIL | one time | | | LISINOPRIL | | Karma | | 20MG | per day | | | 20MG | | Berenice [place] | + + + + + + + + | MAGIC | 5ml swish | | | MAGIC | | David | | MOUTHWASH | and | | | MOUTHWASH | | Chickering | | | swollow | | | | | MA | | | every | | | | | | | | 4-6hrs or | | | | | | | | with meals | | | | | | + + + + + + + + | MOBIC 7.5 | 1 tablet | | | MELOXICAM | [id number] | Phan | | MG TABS | by mouth | | | | 1 | Middlekauf | | | daily. | | | | | f COMPANY MANAGER | | | Must last | | | | | | | | 30 days. | | | | | | + + + + + + + + | CLINDAMYCI | 1 tab by | | | CLINDAMYCI | 5573904471 | Malachi K | | N HCL 150 | mouth by | | | N HCL | 1 | Dye | | MG CAPS | mouth | | | | | ACNP | | | every 4 | | | | | | | | hours | | | | | | + + + + + + + + | [facility] | prn | | | MAGNESIUM | 4492963096 | Melvina | | OF | constipati | | | HYDROXIDE | 5 | Pimenetl CCMA | | MAGNESIA | on | | | | | | | 1200 | | | | | | | | MG/15ML | | | | | | | | SUSP | | | | | | | + + + + + + + + | IBUPROFEN | 4 By mouth | | | IBUPROFEN | 1306561786 | Andriy | | 200 MG | 3 times a | | | | 1 | Padovich | | TABS | day | | | | | COMPANY MANAGER | + + + + + + + + | CHANTIX 1 | 1 tab two | | | VARENICLIN | 0852660422 | Karma | | MG TABS | times per | | | E TARTRATE | 6 | Berenice CONRAD | | | day | | | | | | + + + + + + + + | HYDROCODON | Take 1 tab | | | HYDROCODON | 3280349297 | Karma | | E-ACETAMIN | po | | | E-ACETAMIN | 1 | Berenice CONRAD | | OPHEN | BID/PRN | | | OPHEN | | | | 7.5-325 MG | | | | | | | | TABS | | | | | | | + + + + + + + + | CYCLOBENZA | 1 tab BID | | | CYCLOBENZA | 1550990943 | David | | YESSY HCL | PRN muscle | | | YESSY HCL | 1 | Chickering | | 10 MG TABS | pain | | | | | MA | + + + + + + + + | IBUPROFEN | three | | | IBUPROFEN | 5303091918 | Rudy | | 600 MG | times per | | | | 0 | Yaquelin | | TABS | day | | | | | MD | + + + + + + + + | RECTIV 0.4 | 1 inch | | | NITROGLYCE | 9779318779 | Darius | | % OINT | film | | | RIN | 0 | Niels | | | intra-anal | | | | | PA-C | | | ly q 12 | | | | | | | | hrs up to | | | | | | | | 3 weeks | | | | | | | | for | | | | | | | | chronic | | | | | | | | anal | | | | | | | | fissure | | | | | | | | and | | | | | | | | associated | | | | | | | | pain | | | | | | + + + + + + + + | TRAMADOL | Take 1 tab | | | TRAMADOL | [id number] | Marisel | | HCL 50 MG | q 6 hours | | | HCL | 1 | Ruboi COMPANY MANAGER | | TABS | prn pain | | | | | | + + + + + + + + | [facility] | 5 ml po | | | MAGNESIUM | 9873447163 | Marisel | | OF | mid prn | | | HYDROXIDE | 6 | Rubio [employer] MANAGER | | MAGNESIA | constipati | | | | | | | 400 MG/5ML | on | | | | | | | SUSP | | | | | | | + + + + + + + + | COLACE 100 | Take 1 bid | | | DOCUSATE | [id number] | Marisel | | MG CAPS | prn | | | SODIUM | 0 | [employer] MANAGER | | | constipati | | | | | | | | on | | | | | | + + + + + + + + | ANECREAM5 | thin film | | | LIDOCAINE | 7132458444 | Darius | | 5 % CREA | to rectum | | | (ANORECTAL | 5 | Niels | | | tid prn | | | ) | | PA-C | | | pain | | | | | | + + + + + + + + | OXYCODONE- | 1 tab po q | | | OXYCODONE- | [id number] | Darius | | ACETAMINOP | 6 hrs prn | | | ACETAMINOP | 5 | Niels | | HEN 5-325 | rectal | | | HEN | | PA-C | | MG TABS | pain | | | | | | + + + + + + + + | ANACAINE | thin film | | | BENZOCAINE | 4772612845 | Darius | | 10 % OINT | to | | | | 1 | Niels | | | affected | | | | | PA-C | | | area tid | | | | | | | | prn for | | | | | | | | rectal | | | | | | | | fissure. | | | | | | + + + + + + + + | GRX HICORT | 1 | | | HYDROCORTI | 1964055998 | Darius | | 25 25 MG | suppositor | | | SONE | 2 | Niels | | SUPP | y per | | | ACETATE | | PA-C | | | rectum q | | | | | | | | 12 hrs for | | | | | | | | 2 weeks | | | | | | | | prn for | | | | | | | | rectal | | | | | | | | pain and | | | | | | | | bleeding. | | | | | | + + + + + + + + | PERCOCET | take 1 by | | | OXYCODONE- | 8042993607 | Marisel | | 5-325 MG | mouth two | | | ACETAMINOP | 0 | [employer] MANAGER | | TABS | times per | | | HEN | | | | | day for | | | | | | | | pain. Must | | | | | | | | last 30 | | | | | | | | days | | | | | | + + + + + + + + | TRAMADOL | take 1 by | | | TRAMADOL | [id number] | Marisel | | HCL 50 MG | mouth | | | HCL | 1 | Rubio DEL CID | | TABS | every 6 | | | | | | | | hours | | | | | | + + + + + + + + | CHANTIX | follow | | | VARENICLIN | 1512964919 | Marisel | | STARTING | instructio | | | E TARTRATE | 3 | Rubio GUPTAP | | MONTH LIZA | ns on box | | | | | | | 0.5 MG X | | | | | | | | 11 & 1 MG | | | | | | | | X 42 TABS | | | | | | | + + + + + + + + | PSEUDOEPHE | 1-2 | | | PSEUDOEPHE | 3652074486 | Marisel | | DRINE HCL | tablets | | | DRINE HCL | 2 | Rubio COMPANY MANAGER | | 30 MG TABS | every 6 | | | | | | | | hours as | | | | | | | | needed not | | | | | | | | to exceed | | | | | | | | 240Mg/day | | | | | | + + + + + + + + | GUAIFENESI | take 1 to | | | GUAIFENESI | [id number] | Marisel | | N 200 MG | 2 tablets | | | N | 0 | [employer] MANAGER | | TABS | by mouth | | | | | | | | every 4 | | | | | | | | hours for | | | | | | | | cough. not | | | | | | | | to exceed | | | | | | | | 2400Mg in | | | | | | | | 1 day | | | | | | + + + + + + + + | FLONASE | 1 spray | | | FLUTICASON | 0819766630 | Marisel | | ALLERGY | eash | | | E | 2 | Rubio COMPANY MANAGER | | RELIEF 50 | nostril | | | PROPIONATE | | | | MCG/ACT | once a day | | | | | | | SUSP | | | | | | | + + + + + + + + | PSEUDOEPHE | 1-2 | | | PSEUDOEPHE | 0161784631 | Marisel | | DRINE HCL | tablets | | | DRINE HCL | 2 | [employer] MANAGER | | 30 MG TABS | every 6 | | | | | | | | hours as | | | | | | | | needed not | | | | | | | | to exceed | | | | | | | | 240Mg/day | | | | | | + + + + + + + + | LISINOPRIL | 1 tab one | | | LISINOPRIL | 6534830255 | Rudy | | 20 MG | time per | | | | 1 | Yaquelin | | TABS | day | | | | | MD | + + + + + + + + | CHANTIX 1 | take 1tab | | | VARENICLIN | 7631279978 | Rudy | | MG TABS | po daily | | | E TARTRATE | 6 | Yaquelin | | | | | | | | MD | + + + + + + + + | ELAVIL 25 | Take 1 | | | AMITRIPTYL | 0835300281 | Rudy | | MG TABS | tab po QHS | | | INE HCL | 0 | Yaquelin | | | | | | | | MD | + + + + + + + + | TRAMADOL | 1-2 TAB | | | TRAMADOL | 8123947095 | Rudy | | HCL 50 MG | BID PRN | | | HCL | 1 | Yaquelin | | TABS | PAIN | | | | | MD | + + + + + + + + | TRAMADOL | 1 TAB BID | | | TRAMADOL | 5203034245 | Rudy | | HCL 50 MG | PRN PAIN | | | HCL | 1 | Yaquelin | | TABS | | | | | | MD | + + + + + + + + | NORCO | 1tab by | | | HYDROCODON | 7191196329 | Rudy | | 7.5-325 MG | mouth one | | | E-ACETAMIN | 1 | Yaquelin | | TABS | time per | | | OPHEN | | MD | | | day as | | | | | | | | needed | | | | | | + + + + + + + + | TRAMADOL | 1 TAB Q6 | | | TRAMADOL | 1311105881 | Prabhakar | | HCL 50 MG | HRS PRN | | | HCL | 1 | VanAnrooy | | TABS | PAIN | | | | | MD | + + + + + + + + | NORCO | 1tab po | | | HYDROCODON | 6498909494 | Rudy | | 7.5-325 MG | two times | | | E-ACETAMIN | 1 | Yaquelin | | TABS | per day as | | | OPHEN | | MD | | | needed, | | | | | | | | must last | | | | | | | | 1week | | | | | | + + + + + + + + | NORCO | 1 tab po | | | HYDROCODON | 8629467985 | Rudy | | 5-325 MG | QD | | | E-ACETAMIN | 1 | Yaquelin | | TABS | | | | OPHEN | | MD | + + + + + + + + | TRAMADOL | take 1 tab | | | TRAMADOL | 6010815351 | Rudy | | HCL 50 MG | nightly | | | HCL | 1 | Yaquelin | | TABS | | | | | | MD | + + + + + + + + | NORCO | 1 every 8 | | | HYDROCODON | 2582463514 | Prabhakar | | 5-325 MG | hours as | | | E-ACETAMIN | 1 | VanMarinerooy | | TABS | needed | | | OPHEN | | MD | + + + + + + + + | OXYCODONE | 1 tab q 4 | | | OXYCODONE | 0340126857 | Florecita | | HCL 15 MG | hrs PRN | | | HCL | 1 | [employer] MANAGER-C | | TABS | pain | | | | | | + + + + + + + + | [facility] L[facility] | take 1 tab | | | LYSINE | 7691105677 | Rudy | | 1000 MG | daily | | | | 9 | Yaquelin | | TABS | | | | | | MD | + + + + + + + + | MAGIC | 5ml swish | | | MAGIC | | Rudy | | MOUTHWASH | and | | | MOUTHWASH | | Yaquelin | | | swollow | | | | | MD | | | every | | | | | | | | 4-6hrs or | | | | | | | | with meals | | | | | | + + + + + + + + | PERCOCET | 1-2 tab q | | | OXYCODONE- | 1822535358 | Florecita | | 7.5-325 MG | 4 hrs for | | | ACETAMINOP | 0 | [employer] MANAGER-C | | TABS | pain, hold | | | HEN | | | | | if | | | | | | | | somnolent | | | | | | | | or asleep. | | | | | | + + + + + + + + | PERCOCET | 1-2 tab q | | | OXYCODONE- | 5538956953 | Florecita | | 7.5-325 MG | 4 hrs PRN | | | ACETAMINOP | 0 | [employer] MANAGER-C | | TABS | pain, | | | HEN | | | | | dispense | | | | | | | | #84 | | | | | | + + + + + + + + | TESSALON | Take three | | | BENZONATAT | 9417415535 | Loraine | | RACHEL 100 | times a | | | E | 1 | Koko GONGORA-C | | MG CAPS | day as | | | | | | | | needed for | | | | | | | | cough. | | | | | | | | Swallow | | | | | | | | capsule | | | | | | | | whole. | | | | | | + + + + + + + + | CHANTIX 1 | 1tab po | | | VARENICLIN | 1329908223 | Rudy | | MG TABS | bid | | | E TARTRATE | 6 | Yaquelin | | | | | | | | MD | + + + + + + + + | HYDROCODON | Take 1 tab | | | HYDROCODON | 6524445103 | Rudy | | E-ACETAMIN | po | | | E-ACETAMIN | 1 | Yaquelin | | OPHEN | BID/PRN | | | OPHEN | | MD | | 7.5-300 MG | | | | | | | | TABS | | | | | | | + + + + + + + + | LISINOPRIL | 1tab po qd | | | LISINOPRIL | 6030298508 | Rudy | | 20 MG | | | | | 1 | Yaquelin | | TABS | | | | | | MD | + + + + + + + + | TRAMADOL | 1 TAB Q6 | | | TRAMADOL | [id number] | Prabhakar | | HCL 50 MG | HRS PRN | | | HCL | 1 | VanAnrooy | | TABS | PAIN | | | | | MD | + + + + + + + + | CEPACOL | 1 lozenge | | | BENZOCAINE | 2178682389 | Phan | | SORE | every 2 | | | -MENTHOL | 0 | Middlekauf | | THROAT | hours as | | | | | f COMPANY MANAGER | | 10-2.1 MG | needed for | | | | | | | LOZG | sore | | | | | | | | throat | | | | | | + + + + + + + + | GUAIFENESI | 1 tab | | | GUAIFENESI | 0092485571 | Phan | | N 400 MG | every 4 | | | N | 0 | Middlekauf | | TABS | hours as | | | | | f COMPANY MANAGER | | | needed for | | | | | | | | | | | | | | | | cough/yaw | | | | | | | | estion | | | | | | + + + + + + + + | PSEUDOEPHE | Take 1 tab | | | PSEUDOEPHE | [id number] | Malachi Levin | | DRINE HCL | by mouth | | | DRINE HCL | 2 | Dye | | 30 MG TABS | four times | | | | | ACNP | | | per day | | | | | | | | as needed | | | | | | | | for sinus | | | | | | | | congestion | | | | | | | | . | | | | | | + + + + + + + + | PREDNISONE | Take 3 | | | PREDNISONE | [id number] | Malachi Levin | | 20 MG | tabs by | | | | 5 | Dye | | TABS | mouth | | | | | ACNP | | | daily for | | | | | | | | five days. | | | | | | + + + + + + + + | OXYCODONE- | Take 1 tab | | | OXYCODONE- | 5559877416 | Malachi Levin | | ACETAMINOP | by mouth | | | ACETAMINOP | 5 | Dye | | HEN 5-325 | three | | | HEN | | ACNP | | MG TABS | times per | | | | | | | | day as | | | | | | | | needed for | | | | | | | | severe | | | | | | | | pain. | | | | | | + + + + + + + + | CYCLOBENZA | Take 1 tab | | | CYCLOBENZA | [id number] | Malachi Levin | | YESSY HCL | by mouth | | | YESSY HCL | 1 | Dye | | 10 MG TABS | three | | | | | ACNP | | | times per | | | | | | | | day as | | | | | | | | needed for | | | | | | | | muscle | | | | | | | | spasms. | | | | | | + + + + + + + + | GABAPENTIN | Take 1 | | | GABAPENTIN | [id number] | Malachi Levin | | 300 MG | capsule by | | | | 5 | Dye | | CAPS | mouth | | | | | ACNP | | | daily at | | | | | | | | bedtime | | | | | | | | for nerve | | | | | | | | pain. | | | | | | + + + + + + + + | HYDROCODON | 1 po bid | | | HYDROCODON | [id number] | Tommy | | E-ACETAMIN | prn severe | | | E-ACETAMIN | 1 | Rather PA | | OPHEN | pain | | | OPHEN | | | | 5-325 MG | | | | | | | | TABS | | | | | | | + + + + + + + + | MOBIC 7.5 | 1 tablet | | | MELOXICAM | [id number] | Jovany | | MG TABS | by mouth | | | | 1 | Ross DO | | | daily. | | | | | | | | Must last | | | | | | | | 30 days. | | | | | | + + + + + + + + Medications Administered No information available. Allergies, Adverse Reactions, Alerts + + + + + + + | Allergy Name | Reaction | Start Date | Severity | Status | Provider | | | Description | | | | | + + + + + + + | CODEINE | | | Critical | No Longer | Phan | | | | | | Active | Marvin | | | | | | | COMPANY MANAGER | + + + + + + + +---+ + | | Allergy excluded from report: | +---+ + +---------+ + + + + + | CODEINE | | | Critical | No Longer | Prabhakar | | | | | | Active | Uzma MD | +---------+ + + + + + | CODEINE | Itch | | Critical | No Longer | Phan | | | | | | Active | Abeluff | | | | | | | COMPANY MANAGER | +---------+ + + + + + | CODEINE | Itch | | Critical | No Longer | Skye | | | | | | 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 | +---------+ + + + + + | SULFA | Break out in | | Critical | | Skye | | | hives | | | | [employer] MA[employer] | +---------+ + + + + + Results +------+------+-------+------+-------+------+ + | Date | Name | Value | Unit | Range | Flag | Descriptio | | | | | | | | n | +------+------+-------+------+-------+------+ + + + | Office Visit: Walk In- Rectal Bleeding | + + + +--------+---------+---+---+---+ + | | SMOK | Former | | | | Tobacco | | | STATUS | smoker | | | | use status | | | | | | | | CPHS | + +--------+---------+---+---+---+ + | | MEDS | Done | | | | Documentat | | | REVIEW | | | | | ion of | | | | | | | | current | | | | | | | | medication | | | | | | | | s | | | | | | | | (procedure | | | | | | | | ) | + +--------+---------+---+---+---+ + + + | Office Visit: Rectal Bleeding-Marisel Pt | + + + +--------+---------+---+---+---+ + | | MEDS | Done | | | | Documentat | | | REVIEW | | | | | ion of | | | | | | | | current | | | | | | | | medication | | | | | | | | s | | | | | | | | (procedure | | | | | | | | ) | + +--------+---------+---+---+---+ + | | SMOK | Former | | | | Tobacco | | | STATUS | smoker | | | | use status | | | | | | | | CPHS | + +--------+---------+---+---+---+ + Plan of Care + + + + | Type | Date | Detail | + + + + | Referral | | Other Referral | | | | Other Provider, Specify | | | | Provider in Instructions | + + + + | Referral | | Other Referral | | | | Hugo Matta, [address] | | | | [address], | | | | [place], [address] | | | | | + + + + | Referral | | ENT Consult | | | | [facility] Phone [address], [phone] | | | | [address] , | | | | [place], [address] | | | | | + + + + Procedures + + + + + | Code | Procedure Name | Date | Entry Date | + + + + + | [id number] | Overweight | | | + + + + + | [id number] | Overweight | | | + + + + + | CPT-19630 | XR Hip W/Pelvis | | | | | 2-3V-Lt | | | + + + + + | [id number] | Overweight | | | + + + + + | CPT-33061 | XR Hip W/Pelvis | | | | | 2-3V-Lt | | | + + + + + | CPT-00139 | Urine Toxicology | | | | | Screen, Multiple | | | | | Drug Classes by | | | | | Direct Optical | | | | | Observation | | | + + + + + | [id number] | Overweight | | | + + + + + | [id number] | Overweight | | | + + + + + | CPT-J1885 | Toradol 15mg | | | + + + + + | CPT-89507 | Theraputic | | | | | Injection (IM/SubQ) | | | + + + + + | [id number] | Overweight | | | + + + + + | CPT-80448 | Theraputic | | | | | Injection (IM/SubQ) | | | + + + + + | CPT-J1885 | Toradol 15mg | | | + + + + + | CPT-50956 | Urine Toxicology | | | | | Screen, Multiple | | | | | Drug Classes by | | | | | Direct Optical | | | | | Observation | | | + + + + + | CPT-13996 | [id number] [facility] Individual | | | | | Therapy (53-112) | | | | | No POS Phone | | | + + + + + | CPT-25687 | XR Hip W/Pelvis | | | | | 2-3V-Lt | | | + + + + + | CPT-74435 | Theraputic | | | | | Injection (IM/SubQ) | | | + + + + + | CPT-J1885 | Toradol 15mg | | | + + + + + | CPT-56026 | Urine Toxicology | | | | | Screen, Multiple | | | | | Drug Classes by | | | | | Direct Optical | | | | | Observation | | | + + + + + | CPT-61467 | Theraputic | | | | | Injection (IM/SubQ) | | | + + + + + | CPT-J1885 | Toradol 15mg | | | + + + + + | CPT-36345 | Theraputic | | | | | Injection (IM/SubQ) | | | + + + + + | CPT-J1885 | Toradol 15mg | | | + + + + + | CPT-16690 | Theraputic | | | | | Injection (IM/SubQ) | | | + + + + + | CPT-J1885 | Toradol 15mg | | | + + + + + | CPT-48388 | XR Hip W/Pelvis | | | | | 2-3V-Lt | | | + + + + + | CBC AUTO 49658 | CBC w/ Auto Diff | | | + + + + + | CPT-16459 | XR Hip W/Pelvis | | | | | 2-3V-Lt | | | + + + + + | CBC AUTO 74789 | CBC w/ Auto Diff | | | + + + + + | M NOS MRSA 08391 | Nose Culture, MRSA | | | | | Only | | | + + + + + | CHEM 8 49517 | Basic Metabolic | | | | | Panel | | | + + + + + | CPT-27793 | Health Risk | | | | | Assessment | | | + + + + + | GLYCO HGB 45345 | Glyco Hemoglobin, | | | | | A1C | | | + + + + + | CPT-73818 | Health Risk | | | | | Assessment | | | + + + + + | CPT-27665 | Health Risk | | | | | Assessment | | | + + + + + | U NICOTINE 86381 | Cotinine | | | + + + + + | 08320 | MR Hip-WO Con-Lt | | | + + + + + | CPT-37626 | XR Hip W/Pelvis | | | | | 2-3V-Lt | | | + + + + + Vital Signs + + +-------+---------+ + | Date | Name | Value | Unit | Description | + + +-------+---------+ + | | BMI (Body Mass | 33.62 | kg/m2 | Body Mass Index | | | Index) | | | [Ratio] | + + +-------+---------+ + | | BP Diastolic | 88 | mm[Hg] | blood pressure, | | | | | | diastolic, | | | | | | second | | | | | | observation | + + +-------+---------+ + | | BP Diastolic | 88 | mm[Hg] | blood pressure, | | | | | | diastolic | + + +-------+---------+ + | | BP Systolic | 140 | mm[Hg] | blood pressure, | | | | | | systolic, | | | | | | second | | | | | | observation | + + +-------+---------+ + | | BP Systolic | 140 | mm[Hg] | blood pressure, | | | | | | systolic | + + +-------+---------+ + | | Body | 98.1 | [degF] | temperature E&M | | | Temperature | | | | + + +-------+---------+ + | | Heart Rate | 117 | /min | pulse rate E&M | + + +-------+---------+ + | | Height | 71 | [in_us] | height E&M | + + +-------+---------+ + | | Weight Measured | 240.2 | [lb_av] | weight E&M | + + +-------+---------+ + | | BMI (Body Mass | 33.43 | kg/m2 | Body Mass Index | | | Index) | | | [Ratio] | + + +-------+---------+ + | | BP Diastolic | 82 | mm[Hg] | blood pressure, | | | | | | diastolic, | | | | | | second | | | | | | observation | + + +-------+---------+ + | | BP Diastolic | 82 | mm[Hg] | blood pressure, | | | | | | diastolic | + + +-------+---------+ + | | BP Systolic | 130 | mm[Hg] | blood pressure, | | | | | | systolic, | | | | | | second | | | | | | observation | + + +-------+---------+ + | | BP Systolic | 130 | mm[Hg] | blood pressure, | | | | | | systolic | + + +-------+---------+ + | | Body | 97.6 | [degF] | temperature E&M | | | Temperature | | | | + + +-------+---------+ + | | Heart Rate | 97 | /min | pulse rate E&M | + + +-------+---------+ + | | Height | 71 | [in_us] | height E&M | + + +-------+---------+ + | | Weight Measured | 238.8 | [lb_av] | weight E&M | + + +-------+---------+ + | | BMI (Body Mass | 32.57 | kg/m2 | Body Mass Index | | | Index) | | | [Ratio] | + + +-------+---------+ + | | BP Diastolic | 88 | mm[Hg] | blood pressure, | | | | | | diastolic, | | | | | | second | | | | | | observation | + + +-------+---------+ + | | BP Diastolic | 88 | mm[Hg] | blood pressure, | | | | | | diastolic | + + +-------+---------+ + | | BP Systolic | 140 | mm[Hg] | blood pressure, | | | | | | systolic | + + +-------+---------+ + | | BP Systolic | 140 | mm[Hg] | blood pressure, | | | | | | systolic, | | | | | | second | | | | | | observation | + + +-------+---------+ + | | Body | 98.4 | [degF] | temperature E&M | | | Temperature | | | | + + +-------+---------+ + | | Heart Rate | 82 | /min | pulse rate E&M | + + +-------+---------+ + | | Height | 71.5 | [in_us] | height E&M | + + +-------+---------+ + | | Respiratory | 14 | /min | respiratory | | | Rate | | | rate E&M | + + +-------+---------+ + | | Weight Measured | 236 | [lb_av] | weight E&M | + + +-------+---------+ + | | BMI (Body Mass | 33.18 | kg/m2 | Body Mass Index | | | Index) | | | [Ratio] | + + +-------+---------+ + | | Heart Rate | 71 | /min | pulse rate E&M | + + +-------+---------+ + | | Height | 71.5 | [in_us] | height E&M | + + +-------+---------+ + | | Weight Measured | 240.4 | [lb_av] | weight E&M | + + +-------+---------+ + | | BMI (Body Mass | 33.16 | kg/m2 | Body Mass Index | | | Index) | | | [Ratio] | + + +-------+---------+ + | | BP Diastolic | 98 | mm[Hg] | blood pressure, | | | | | | diastolic | + + +-------+---------+ + | | BP Diastolic | 98 | mm[Hg] | blood pressure, | | | | | | diastolic, | | | | | | second | | | | | | observation | + + +-------+---------+ + | | BP Systolic | 142 | mm[Hg] | blood pressure, | | | | | | systolic | + + +-------+---------+ + | | BP Systolic | 142 | mm[Hg] | blood pressure, | | | | | | systolic, | | | | | | second | | | | | | observation | + + +-------+---------+ + | | Body | 98.6 | [degF] | temperature E&M | | | Temperature | | | | + + +-------+---------+ + | | Heart Rate | 80 | /min | pulse rate E&M | + + +-------+---------+ + | | Height | 72 | [in_us] | height E&M | + + +-------+---------+ + | | Weight Measured | 243.6 | [lb_av] | weight E&M | + + +-------+---------+ + | | BMI (Body Mass | 33.48 | kg/m2 | Body Mass Index | | | Index) | | | [Ratio] | + + +-------+---------+ + | | BP Diastolic | 88 | mm[Hg] | blood pressure, | | | | | | diastolic, | | | | | | second | | | | | | observation | + + +-------+---------+ + | | BP Diastolic | 88 | mm[Hg] | blood pressure, | | | | | | diastolic | + + +-------+---------+ + | | BP Systolic | 140 | mm[Hg] | blood pressure, | | | | | | systolic | + + +-------+---------+ + | | BP Systolic | 140 | mm[Hg] | blood pressure, | | | | | | systolic, | | | | | | second | | | | | | observation | + + +-------+---------+ + | | Body | 98.4 | [degF] | temperature E&M | | | Temperature | | | | + + +-------+---------+ + | | Heart Rate | 63 | /min | pulse rate E&M | + + +-------+---------+ + | | Height | 72 | [in_us] | height E&M | + + +-------+---------+ + | | Respiratory | 16 | /min | respiratory | | | Rate | | | rate E&M | + + +-------+---------+ + | | Weight Measured | 246 | [lb_av] | weight E&M | + + +-------+---------+ + | | BMI (Body Mass | 34.16 | kg/m2 | Body Mass Index | | | Index) | | | [Ratio] | + + +-------+---------+ + | | BP Diastolic | 90 | mm[Hg] | blood pressure, | | | | | | diastolic | + + +-------+---------+ + | | BP Diastolic | 90 | mm[Hg] | blood pressure, | | | | | | diastolic, | | | | | | second | | | | | | observation | + + +-------+---------+ + | | BP Systolic | 136 | mm[Hg] | blood pressure, | | | | | | systolic | + + +-------+---------+ + | | BP Systolic | 136 | mm[Hg] | blood pressure, | | | | | | systolic, | | | | | | second | | | | | | observation | + + +-------+---------+ + | | Body | 98.4 | [degF] | temperature E&M | | | Temperature | | | | + + +-------+---------+ + | | Heart Rate | 83 | /min | pulse rate E&M | + + +-------+---------+ + | | Height | 72 | [in_us] | height E&M | + + +-------+---------+ + | | Respiratory | 14 | /min | respiratory | | | Rate | | | rate E&M | + + +-------+---------+ + | | Weight Measured | 251 | [lb_av] | weight E&M | + + +-------+---------+ + | | BMI (Body Mass | 35.53 | kg/m2 | Body Mass Index | | | Index) | | | [Ratio] | + + +-------+---------+ + | | BP Diastolic | 102 | mm[Hg] | blood pressure, | | | | | | diastolic, | | | | | | second | | | | | | observation | + + +-------+---------+ + | | BP Diastolic | 102 | mm[Hg] | blood pressure, | | | | | | diastolic | + + +-------+---------+ + | | BP Systolic | 162 | mm[Hg] | blood pressure, | | | | | | systolic | + + +-------+---------+ + | | BP Systolic | 162 | mm[Hg] | blood pressure, | | | | | | systolic, | | | | | | second | | | | | | observation | + + +-------+---------+ + | | Body | 98.0 | [degF] | temperature E&M | | | Temperature | | | | + + +-------+---------+ + | | Heart Rate | 95 | /min | pulse rate E&M | + + +-------+---------+ + | | Respiratory | 18 | /min | respiratory | | | Rate | | | rate E&M | + + +-------+---------+ + | | Weight Measured | 261 | [lb_av] | weight E&M | + + +-------+---------+ + | | BMI (Body Mass | 35.39 | kg/m2 | Body Mass Index | | | Index) | | | [Ratio] | + + +-------+---------+ + | | BP Diastolic | 86 | mm[Hg] | blood pressure, | | | | | | diastolic, | | | | | | second | | | | | | observation | + + +-------+---------+ + | | BP Diastolic | 82 | mm[Hg] | blood pressure, | | | | | | diastolic | + + +-------+---------+ + | | BP Systolic | 138 | mm[Hg] | blood pressure, | | | | | | systolic | + + +-------+---------+ + | | BP Systolic | 146 | mm[Hg] | blood pressure, | | | | | | systolic, | | | | | | second | | | | | | observation | + + +-------+---------+ + | | Body | 98.5 | [degF] | temperature E&M | | | Temperature | | | | + + +-------+---------+ + | | Heart Rate | 106 | /min | pulse rate E&M | + + +-------+---------+ + | | Respiratory | 15 | /min | respiratory | | | Rate | | | rate E&M | + + +-------+---------+ + | | Weight Measured | 260 | [lb_av] | weight E&M | + + +-------+---------+ + Social History + + + +-------+ + | Concept | Observation | Observation | Units | Start Date | | Description | Name | Value | | | + + + +-------+ + | Alcohol intake | ALCOHOL USE | <1 | /day | | + + + +-------+ + | Alcohol use | ETOH USE | current | | | + + + +-------+ + | Details of drug | DRUG USE | none | | | | misuse | | | | | | behavior | | | | | + + + +-------+ + | Former smoker | SMOK STATUS | Former smoker | | | + + + +-------+ + | Tobacco use and | PAS CIG SMOK | no | | | | exposure | | | | | + + + +-------+ + | Former smoker | SMOK STATUS | Former smoker | | | + + + +-------+ + | Tobacco use and | PAS CIG SMOK | no | | | | exposure | | | | | + + + +-------+ + | Former smoker | SMOK STATUS | Former smoker | | | + + + +-------+ + | Tobacco use and | PAS CIG SMOK | no | | | | exposure | | | | | + + + +-------+ + | Tobacco use and | PAS CIG SMOK | no | | | | exposure | | | | | + + + +-------+ + | Former smoker | SMOK STATUS | Former smoker | | | + + + +-------+ + | Tobacco use and | PAS CIG SMOK | no | | | | exposure | | | | | + + + +-------+ + | Tobacco use and | PAS CIG SMOK | no | | | | exposure | | | | | + + + +-------+ + | Former smoker | SMOK STATUS | Former smoker | | | + + + +-------+ + | Tobacco use and | PAS CIG SMOK | no | | | | exposure | | | | | + + + +-------+ + | Former smoker | SMOK STATUS | Former smoker | | | + + + +-------+ + | Tobacco use and | PAS CIG SMOK | no | | | | exposure | | | | | + + + +-------+ + | Former smoker | SMOK STATUS | Former smoker | | | + + + +-------+ + | Tobacco use and | PAS CIG SMOK | no | | | | exposure | | | | | + + + +-------+ + | Former smoker | SMOK STATUS | Former smoker | | | + + + +-------+ + | Tobacco use and | PAS CIG SMOK | no | | | | exposure | | | | | + + + +-------+ + | Former smoker | SMOK STATUS | Former smoker | | | + + + +-------+ + | Tobacco use and | PAS CIG SMOK | no | | | | exposure | | | | | + + + +-------+ + | Former smoker | SMOK STATUS | Former smoker | | | + + + +-------+ + | Tobacco use and | PAS CIG SMOK | no | | | | exposure | | | | | + + + +-------+ + | Former smoker | SMOK STATUS | Former smoker | | | + + + +-------+ + | Tobacco use and | PAS CIG SMOK | no | | | | exposure | | | | | + + + +-------+ + | Former smoker | SMOK STATUS | Former smoker | | | + + + +-------+ + | Tobacco use and | PAS CIG SMOK | no | | | | exposure | | | | | + + + +-------+ + | Former smoker | SMOK STATUS | Former smoker | | | + + + +-------+ + | Tobacco use and | PAS CIG SMOK | no | | | | exposure | | | | | + + + +-------+ + | Tobacco use and | PAS CIG SMOK | no | | | | exposure | | | | | + + + +-------+ + | Former smoker | SMOK STATUS | Former smoker | | | + + + +-------+ + | Tobacco use and | PAS CIG SMOK | no | | | | exposure | | | | | + + + +-------+ + | Former smoker | SMOK STATUS | Former smoker | | | + + + +-------+ + | Tobacco use and | PAS CIG SMOK | no | | | | exposure | | | | | + + + +-------+ + | Tobacco use and | PAS CIG SMOK | no | | | | exposure | | | | | + + + +-------+ + | Former smoker | SMOK STATUS | Former smoker | | | + + + +-------+ + | Tobacco use and | PAS CIG SMOK | no | | | | exposure | | | | | + + + +-------+ + | Former smoker | SMOK STATUS | Former smoker | | | + + + +-------+ + | Tobacco use and | PAS CIG SMOK | no | | | | exposure | | | | | + + + +-------+ + | Alcohol use | ETOH USE | previous | | | + + + +-------+ + | 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 | | | | | + + + +-------+ + | Former smoker | SMOK STATUS | Former smoker | | | + + + +-------+ + | Health-related | HIV RSK EVAL | No | | | | behavior | | | | | + + + +-------+ + | Little interest | PHQ9 Q1 | 0 | | | | or pleasure in | | | | | | doing things? | | | | | + + + +-------+ + | Tobacco use and | PAS CIG SMOK | no | | | | exposure | | | | | + + + +-------+ + | Former smoker | SMOK STATUS | Former smoker | | | + + + +-------+ + | Tobacco use and | PAS CIG SMOK | no | | | | exposure | | | | | + + + +-------+ + | Former smoker | SMOK STATUS | Former smoker | | | + + + +-------+ + | Tobacco use and | PAS CIG SMOK | no | | | | exposure | | | | | + + + +-------+ + | Former smoker | SMOK STATUS | Former smoker | | | + + + +-------+ + | Tobacco use and | PAS CIG SMOK | no | | | | exposure | | | | | + + + +-------+ + | Former smoker | SMOK STATUS | Former smoker | | | + + + +-------+ + | Tobacco use and | PAS CIG SMOK | no | | | | exposure | | | | | + + + +-------+ + | Tobacco use and | PAS CIG SMOK | no | | | | exposure | | | | | + + + +-------+ + | Never smoker | SMOK STATUS | Never smoker | | | + + + +-------+ + | Health-related | HIV RSK EVAL | No | | | | behavior | | | | | + + + +-------+ + | Alcohol intake | ALCOHOL USE | <1 | /day | | + + + +-------+ + | Alcohol use | ETOH USE | current | | | + + + +-------+ + | Details of drug | DRUG USE | none | | | | misuse | | | | | | behavior | | | | | + + + +-------+ + | Never smoker | SMOK STATUS | Never smoker | | | + + + +-------+ + | Tobacco use and | PAS CIG SMOK | no | | | | exposure | | | | | + + + +-------+ + | Alcohol use | ETOH USE | never | | | + + + +-------+ + | Details of drug | DRUG USE | none | | | | misuse | | | | | | behavior | | | | | + + + +-------+ + | Have you used | SMOK STATUS | Light tobacco | | | | smokeless | | smoker | | | | tobacco product | | | | | | in the last 30 | | | | | | days [SAMHSA] | | | | | + + + +-------+ +"
--- OUTSIDE RECORDS SUMMARY | ~2019-09-25 | XMS | Continuity of Care Document ---
Demographics + + + | Address | [address] | | | [place] [address] | + + + | Home Phone | | + + + | Preferred Language | Unknown | + + + | Marital Status | Unknown | + + + | Voodoo Affiliation | Unknown | + + + | Race | Unknown | + + + | Ethnic Group | Unknown | + + + Author + + + | Author | [facility] | + + + | Organization | [facility] | + + + | Address | [address] | | | [place] [address] | + + + | Phone | | + + + Support + + + + + | Name | Relationship | Address | Phone | + + + + + | DOCTOR, NO PCP | Caregiver | [address] | | | | | [place] | | | | | [address] | | + + + + + | Malachi Arevalo | Caregiver | Emergency | | | MD | | [facility], | | | | | [place] [address] | | + + + + + | JAYME KIRK | Next Of Kin | [place] [address] | | + + + + + Care Team Providers + + + + | Care Restorative Care Technician Name | Role | Phone | + + + + | IOANA CAMPO | Unavailable | | + + + + Insurance Providers + + + + + | Payer Name | Policy Number | Subscriber Name | Relationship | + + + + + | [employer] (STATE | [id number] | [place] | SELF | | MEDICAID) | | | | + + + + + Chief Complaint and Reason for Visit + +-----+ | Reason for Visit | NVD | + +-----+ Problems Active Medical Problems + + + [...] Active | + + + +--------+ | Avascular necrosis | Unknown | 06/14/16 | Active | | of bones of both | | | | | hips | | | | + + + +--------+ | Arthritis | Unknown | 06/14/16 | Active | + + + +--------+ | Knee pain | Unknown | 08/15/16 | Active | + + + +--------+ | Viral | Unknown | 01/08/17 | Active | | gastroenteritis | | | | + + + +--------+ | Abdominal pain | Unknown | 01/12/17 | Active | + + + +--------+ Medications Current Home Medications + +------+-------+ + + + + + | Medicati | Dose | Units | Route | Directio | Days/Qty | Instruct | Start | | on | | | | ns | | ions | Date | + +------+-------+ + + + + + | DICYCLOM | 2 | CAP | ORAL | Every 6 | 40 | | 01/20/17 | | INE HCL | | | | Hours as | | | | | (BENTYL) | | | | needed | | | | | 10 MG | | | | for pain | | | | | CAPSULE | | | | | | | | + +------+-------+ + + + + + | Ondanset | 1 | TAB | SUBLINGU | Every 4 | 20 | | 01/12/17 | | martir | | | AL | Hours as | | | | | (Zofran | | | | needed | | | | | Odt) 4 | | | | for | | | | | MG | | | | Nausea | | | | | TAB.RAPD | | | | | | | | | IS | | | | | | | | + +------+-------+ + + + + + | Prometha | 25 | MG | ORAL | Q6H as | 20 | | 01/20/17 | | zine Hcl | | | | needed | | | | | | | | | for | | | | | (Phenerg | | | | Nausea & | | | | | an) 25 | | | | | | | | | MG TAB | | | | Vomiting | | | | + +------+-------+ + + + + + Past Home Medications + + + + + | Medication | Directions | Ordered | Status | + + + + + | Albuterol (Ventolin | Every 6 Hours as | 01/13/15 | Discontinued | | Hfa) 90 Mcg Inh | needed for SOB | | | | Inh, 1-2 Act | | | | | Inhalation | | | | + + + + + | Amoxicillin 500 Mg | Q8H | 05/07/03 | Discontinued | | Cap Cap, 500 Mg | | | | | Oral | | | | + + + + + | Cephalexin | Four Times a Day | 12/01/04 | Discontinued | | Monohydrate | | | | | (Keflex) 500 Mg Cap | | | | | Cap, 500 Mg Oral | | | | + + + + + | Clindamycin Hcl | Every 6 Hours for | 11/16/13 | Discontinued | | (Cleocin Hcl) 300 | infection | | | | Mg Capsule Capsule, | | | | | 300 Mg Oral | | | | + + + + + | Clotrimazole | Twice Each Day | 04/11/06 | Discontinued | | (Lotrimin) 1 % Cr | | | | | Cr, 0 Dose Topical | | | | + + + + + | Cyclobenzaprine Hcl | Twice Each Day | 05/20/16 | Discontinued | | (Flexeril) 5 Mg | | | | | Tablet Tablet, 5 Mg | | | | | Oral | | | | + + + + + | Docusate Sodium | Three Times a Day | 03/01/15 | Discontinued | | (Colace) 100 Mg | for Constipation | | | | Capsule Capsule, | | | | | 100 Mg Oral | | | | + + + + + | Doxycycline | Twice Each Day | 01/13/15 | Discontinued | | Monohydrate | | | | | (Monodox) 100 Mg | | | | | Capsule Capsule, | | | | | 100 Mg Oral | | | | + + + + + | Esomeprazole Mag | | Unknown | Discontinued | | Trihydrate (Nexium) | | | | | 20 Mg Capsule. | | | | | Capsule., | | | | + + + + + | Hydrocodone/Acetami | Q6H as needed for | Unknown | Discontinued | | nophen 7.5-300 Mg | PAIN | | | | (Vicodin Es 7.5-300 | | | | | Mg) 1 Each Tablet | | | | | Tablet, 1 Each Oral | | | | + + + + + | Hydrocodone | Every 4 Hours as | 01/13/15 | Discontinued | | Bit/Acetaminophen | Needed as needed | | | | (Ralph 5-325 | for PAIN | | | | Tablet) 1 Each | | | | | Tablet Tablet, 1-2 | | | | | Tab Oral | | | | + + + + + | Hydrocodone/Acetami | | Unknown | Discontinued | | nophen (Ralph | | | | | 5MG-325MG) 5 Mg/325 | | | | | Mg Tab Tab, | | | | + + + + + | Hydrocodone/Acetami | Every 4-6 Hours PRN | 01/13/05 | Discontinued | | nophen (Vicodin) 5 | Pain | | | | Mg/500 Mg Tab Tab, | | | | | 1-2 Tab Oral | | | | + + + + + | Hydrocodone/Acetami | Every 4-6 Hours PRN | 11/25/04 | Discontinued | | nophen (Vicodin) 5 | Pain | | | | Mg/500 Mg Tab Tab, | | | | | 1 Tab Oral | | | | + + + + + | Hydrocodone/Acetami | Every 4-6 Hours PRN | 05/07/03 | Discontinued | | nophen (Vicodin) 5 | Pain | | | | Mg/500 Mg Tab Tab, | | | | | 1 Tab Oral | | | | + + + + + | Hydrocodone/Acetami | Every 4-6 Hours PRN | 12/01/04 | Discontinued | | nophen 10-325 Mg | Pain | | | | (Ralph 10-325 Mg) | | | | | 10 Mg/325 Mg Tab | | | | | Tab, 0.5-1 Tab Oral | | | | + + + + + | Hydrocodone/Apap | Every 6 Hours | 08/15/16 | Discontinued | | 5-325 Mg (Ralph | | | | | 5-325 Mg) 1 Each | | | | | Tablet Tablet, 1 | | | | | Each Oral | | | | + + + + + | Hydrocortisone/Pram | 5 Times Each Day as | 03/01/15 | Discontinued | | oxine | needed for rectal | | | | (Proctofoam-Hc) 10 | pain | | | | Gm Foam Foam, 1 | | | | | Applic Topical | | | | + + + + + | Inhaler, Assist | Every 6 Hours | 01/13/15 | Discontinued | | Devices (Space | | | | | Chamber Plus) 1 | | | | | Each Spacer Spacer, | | | | | 1 Each Miscell | | | | + + + + + | Ibuprofen (Motrin) | Three Times a Day | Unknown | Discontinued | | 800 Mg Tab Tab, 600 | | | | | Mg Oral | | | | + + + + + | Ibuprofen (Motrin) | Three Times a Day | 05/20/16 | Discontinued | | 800 Mg Tab Tab, 800 | as needed for Pain | | | | Mg Oral | | | | + + + + + | Lisinopril | Daily | Unknown | Discontinued | | (Zestril) 20 Mg Tab | | | | | Tab, 20 Mg Oral | | | | + + + + + | Loperamide Hcl | AFTER EACH LOOSE B | 01/08/17 | Discontinued | | (Loperamide) 2 Mg | for DIARRHEA | | | | Capsule Capsule, 2 | | | | | Mg Oral | | | | + + + + + | Medical Equipment | As Directed | 02/09/07 | Discontinued | | (Crutches- Sprain | | | | | Ankle/Foot) Device | | | | | Device, 0 Use | | | | + + + + + | Naproxen (Naprosyn) | Twice Each Day for | 12/11/13 | Discontinued | | 500 Mg Tablet | PAIN | | | | Tablet, 500 Mg Oral | | | | + + + + + | Naproxen Sodium | Daily | Unknown | Discontinued | | (Aleve) 220 Mg Tab | | | | | Tab, 220 Mg Oral | | | | + + + [...] + + + + + | Oxycodone Hcl 10 Mg | Four Times a Day as | Unknown | Discontinued | | Tablet Tablet, 10 | needed for PAIN | | | | Mg Oral | | | | + + + + + | Ondansetron (Zofran | Every 8 Hours as | 01/08/17 | Discontinued | | Odt) 8 Mg | needed for Nausea | | | | Tabneal | | | | | Tab.geovanni, 1 Tab | | | | | Sublingual | | | | + + + + + | Oxycodone | Every 6 Hours as | 01/29/16 | Discontinued | | Hcl/Acetaminophen | needed for Pain | | | | (Percocet 5-325 Mg | | | | | Tablet) 1 Each | | | | | Tablet Tablet, 1 | | | | | Tab Oral | | | | + + + + + | Oxycodone/Acetamino | Every 4-6 Hours PRN | 02/09/07 | Discontinued | | phen (Percocet) 5 | Pain | | | | Mg/325 Mg Tab Tab, | | | | | 1-2 Tab Oral | | | | + + + + + | Phe/Shark Liver | 5 Times Each Day as | 03/01/15 | Discontinued | | Oil/Glycer/Pet | needed for rectal | | | | (Preparation H) 54 | pain | | | | Gm Cr Cr, 1 Applic | | | | | Rectal | | | | + + + + + | Prednisone 20 Mg | Daily for | 01/25/15 | Discontinued | | Tablet Tablet, 40 | INFLAMMATION | | | | Mg Oral | | | | + + + + + | Prednisone 20 Mg | DAILY X 4 DAYS for | 01/16/15 | Discontinued | | Tablet Tablet, 40 | INFLAMMATION | | | | Mg Oral | | | | + + + + + | Rx Prepack | Every 4 Hours as | 12/03/05 | Discontinued | | Oxycodone/Acetamin | Needed | | | | (Percocet Prepack) | | | | | 5 Mg/325 Mg Tab | | | | | Tab, 1 Tab Oral | | | | + + + + + | Varenicline | Twice Each Day | Unknown | Discontinued | | Tartrate (Chantix) | | | | | 1 Mg Tab Tab, 1 Mg | | | | | Oral | | | | + + + + + | Verapamil Hcl | | Unknown | Discontinued | | (Verelan Pm) 100 Mg | | | | | Capcr Capcr, | | | | + + + + + Social History + + + + | Problem | Response | Recorded Date | + + + + | MENTAL HEALTH PROBLEMS/ | No | 06/14/16 | + + + + + + + + + | Query | Response | Start Date | Stop Date | + + + + + | Smoking status/ | Current Every Day | | | | | Smoker | | | + + + + + Hospital Discharge Instructions No hospital discharge instructions. Plan of Care + + + | Discharge Date | 01/20/17 | + + + | Disposition | HOME | + + + | Condition at Discharge | Fair | + + + | Instructions/Education Provided | Abdominal Pain, Adult, [id number] | + + + | Prescriptions | See Medications Section | + + + | Referrals | [facility] - | + + + Functional Status No functional status results. Allergies, Adverse Reactions, Alerts + +---------+ + +--------+ + | Allergen | Type | Severity | Reaction | Status | Last Updated | + +---------+ + +--------+ + | Sulfa | Allergy | Unknown | ANAPHYLAXIS, | Active | 01/20/17 | | (Sulfonamide | | | HIVES | | | | | | | | | | | Antibiotics) | | | | | | + +---------+ + +--------+ + | codeine | Allergy | Unknown | | Active | 01/20/17 | + +---------+ + +--------+ + Immunizations No Known History of Immunizations. Vital Signs + + + + | Vital Reading | Collection Date/Time | Result | + + + + | Blood Pressure | 01/20/17 3:02pm | 136/79 | + + + + | Blood Pressure Source | 06/17/16 4:24am | Right Arm | + + + + | Temperature | 01/20/17 11:42am | 97.4 F | + + + + | Temperature Source | 01/20/17 11:42am | Temporal | + + + + | Respiratory Rate | 01/20/17 3:02pm | 16 | + + + + | Pulse Rate | 01/20/17 3:02pm | 82 | + + + + | Bedside Pulse Oximetry | 01/20/17 3:02pm | 99 | + + + + | Height | 01/20/17 11:42am | 6 ft 1 in | + + + + | Height | 01/20/17 11:42am | 185.42 cm | + + + + | Weight | 01/20/17 11:42am | 260 lb | + + + + | Weight | 01/20/17 11:42am | 117.93 kg | + + + + | Body Mass Index | 01/20/17 11:42am | 34.3 kg/m2 | + + + + Results Laboratory Results + + + +-------+ + + + + | Test | Result | Units | Flags | Referenc | Collecti | Result | Comments | | Name | | | | e | on | Date/Miguel | | | | | | | | Date/Miguel | e | | | | | | | | e | | | + + + +-------+ + + + + | Clostrid | Negative | | | Negative | 01/20/17 | 01/20/17 | Specimen | | ium | | | | | 12:55pm | 1:57pm | | | difficil | | | | | | | negative | | e | | | | | | | for | | Interpre | | | | | | | toxigeni | | tat | | | | | | | c C. | | | | | | | | | difficil | | | | | | | | | e by | | | | | | | | | DNAampli | | | | | | | | | fication | | | | | | | | | . | + + + +-------+ + + + + | White | 5.19 | K/mm3 | | 4.00-11. | 01/20/17 | 01/20/17 | | | Blood | | | | 30 | 12:10pm | 12:31pm | | | Count | | | | | | | | + + + +-------+ + + + + | Red | 5.06 | M/mm3 | | 4.30-5.9 | 01/20/17 | 01/20/17 | | | Blood | | | | 0 | 12:10pm | 12:31pm | | | Count | | | | | | | | + + + +-------+ + + + + | Hemoglob | 14.9 | g/dL | | 13.5-17. | 01/20/17 | 01/20/17 | | | in | | | | 5 | 12:10pm | 12:31pm | | + + + +-------+ + + + + | Hematocr | 44.2 | % | | 37.0-53. | 01/20/17 | 01/20/17 | | | it | | | | 0 | 12:10pm | 12:31pm | | + + + +-------+ + + + + | Mean | 87 | fL | | 80-100 | 01/20/17 | 01/20/17 | | | Corpuscu | | | | | 12:10pm | 12:31pm | | | lar | | | | | | | | | Volume | | | | | | | | + + + +-------+ + + + + | Mean | 29.4 | pg | | 26.0-34. | 01/20/17 | 01/20/17 | | | Corpuscu | | | | 0 | 12:10pm | 12:31pm | | | lar | | | | | | | | | Hemoglob | | | | | | | | | in | | | | | | | | + + + +-------+ + + + + | Mean | 33.7 | g/dL | | 31.5-36. | 01/20/17 | 01/20/17 | | | Corpuscu | | | | 5 | 12:10pm | 12:31pm | | | lar | | | | | | | | | Hemoglob | | | | | | | | | in | | | | | | | | | Concent | | | | | | | | + + + +-------+ + + + + | RDW | 45.4 | fL | | 35.1-46. | 01/20/17 | 01/20/17 | | | Standard | | | | 3 | 12:10pm | 12:31pm | | | | | | | | | | | | Deviatio | | | | | | | | | n | | | | | | | | + + + +-------+ + + + + | RDW | 14.3 | % | H | 11.7-14. | 01/20/17 | 01/20/17 | | | Coeffici | | | | 2 | 12:10pm | 12:31pm | | | ent of | | | | | | | | | Variatio | | | | | | | | | n | | | | | | | | + + + +-------+ + + + + | Platelet | 189 | K/mm3 | | 150-400 | 01/20/17 | 01/20/17 | | | Count | | | | | 12:10pm | 12:31pm | | + + + +-------+ + + + + | Mean | 10.1 | fL | | 9.1-12.4 | 01/20/17 | 01/20/17 | | | Platelet | | | | | 12:10pm | 12:31pm | | | Volume | | | | | | | | + + + +-------+ + + + + | Differen | Auto | | | | 01/20/17 | 01/20/17 | | | tial | | | | | 12:10pm | 12:31pm | | | Method | | | | | | | | + + + +-------+ + + + + | Neutroph | 64 | % | | 41-73 | 01/20/17 | 01/20/17 | | | ils (%) | | | | | 12:10pm | 12:31pm | | | (Auto) | | | | | | | | + + + +-------+ + + + + | Lymphocy | 25 | % | | 21-46 | 01/20/17 | 01/20/17 | | | wicho (%) | | | | | 12:10pm | 12:31pm | | | (Auto) | | | | | | | | + + + +-------+ + + + + | Monocyte | 10 | % | | 4-13 | 01/20/17 | 01/20/17 | | | s (%) | | | | | 12:10pm | 12:31pm | | | (Auto) | | | | | | | | + + + +-------+ + + + + | Eosinoph | 1 | % | | 0-6 | 01/20/17 | 01/20/17 | | | ils (%) | | | | | 12:10pm | 12:31pm | | | (Auto) | | | | | | | | + + + +-------+ + + + + | Basophil | 0 | % | | 0-2 | 01/20/17 | 01/20/17 | | | s (%) | | | | | 12:10pm | 12:31pm | | | (Auto) | | | | | | | | + + + +-------+ + + + + | Immature | 0 | % | | 0-1 | 01/20/17 | 01/20/17 | | | | | | | | 12:10pm | 12:31pm | | | Granuloc | | | | | | | | | yte % | | | | | | | | | (Auto) | | | | | | | | + + + +-------+ + + + + | Nucleate | 0.0 | /100 WBC | | 0.0-0.2 | 01/20/17 | 01/20/17 | | | d Red | | | | | 12:10pm | 12:31pm | | | Blood | | | | | | | | | Cells % | | | | | | | | + + + +-------+ + + + + | Absolute | 3.33 | K/mm3 | | 1.96-9.1 | 01/20/17 | 01/20/17 | | | | | | | 5 | 12:10pm | 12:31pm | | | Neutroph | | | | | | | | | ils | | | | | | | | | (auto) | | | | | | | | + + + +-------+ + + + + | Absolute | 1.30 | K/mm3 | | 0.84-5.2 | 01/20/17 | 01/20/17 | | | | | | | 0 | 12:10pm | 12:31pm | | | Lymphocy | | | | | | | | | wicho | | | | | | | | | (auto) | | | | | | | | + + + +-------+ + + + + | Absolute | 0.51 | K/mm3 | | 0.16-1.4 | 01/20/17 | 01/20/17 | | | | | | | 7 | 12:10pm | 12:31pm | | | Monocyte | | | | | | | | | s (auto) | | | | | | | | + + + +-------+ + + + + | Absolute | 0.03 | K/mm3 | | 0.00-0.6 | 01/20/17 | 01/20/17 | | | | | | | 8 | 12:10pm | 12:31pm | | | Eosinoph | | | | | | | | | ils | | | | | | | | | (auto) | | | | | | | | + + + +-------+ + + + + | Absolute | 0.01 | K/mm3 | | 0.00-0.2 | 01/20/17 | 01/20/17 | | | | | | | 3 | 12:10pm | 12:31pm | | | Basophil | | | | | | | | | s (auto) | | | | | | | | + + + +-------+ + + + + | Absolute | 0.01 | K/mm3 | | 0.00-0.1 | 01/20/17 | 01/20/17 | | | | | | | 0 | 12:10pm | 12:31pm | | | Immature | | | | | | | | | | | | | | | | | | Granuloc | | | | | | | | | yte | | | | | | | | | (auto | | | | | | | | + + + +-------+ + + + + | Nucleate | 0.00 | K/mm3 | | 0.00-0.0 | 01/20/17 | 01/20/17 | | | d RBC | | | | 2 | 12:10pm | 12:31pm | | | Absolute | | | | | | | | | Count | | | | | | | | | (auto) | | | | | | | | + + + +-------+ + + + + | Sodium | 139 | mmol/L | | 136-145 | 01/20/17 | 01/20/17 | | | Level | | | | | 12:10pm | 12:43pm | | + + + +-------+ + + + + | Potassiu | 3.7 | mmol/L | | 3.5-5.5 | 01/20/17 | 01/20/17 | | | m Level | | | | | 12:10pm | 12:43pm | | + + + +-------+ + + + + | Chloride | 104 | mmol/L | | 98-108 | 01/20/17 | 01/20/17 | | | Level | | | | | 12:10pm | 12:43pm | | + + + +-------+ + + + + | Carbon | 24 | mmol/L | | 21-32 | 01/20/17 | 01/20/17 | | | Dioxide | | | | | 12:10pm | 12:43pm | | | Level | | | | | | | | + + + +-------+ + + + + | Anion | 11 | mmol/L | | 6-16 | 01/20/17 | 01/20/17 | | | Gap | | | | | 12:10pm | 12:43pm | | + + + +-------+ + + + + | Glucose | 102 | mg/dL | H | 70-99 | 01/20/17 | 01/20/17 | | | Level | | | | | 12:10pm | 12:43pm | | + + + +-------+ + + + + | Blood | 9 | mg/dL | | 8-24 | 01/20/17 | 01/20/17 | | | Urea | | | | | 12:10pm | 12:43pm | | | Nitrogen | | | | | | | | + + + +-------+ + + + + | Creatini | 0.70 | mg/dL | | 0.60-1.2 | 01/20/17 | 01/20/17 | | | ne | | | | 0 | 12:10pm | 12:43pm | | + + + +-------+ + + + + | BUN/Crea | 12.9 | % | | 12.0-20. | 01/20/17 | 01/20/17 | | | tinine | | | | 0 | 12:10pm | 12:43pm | | | Ratio | | | | | | | | + + + +-------+ + + + + | Glomerul | >60 | | | 60- | 01/20/17 | 01/20/17 | Non-Afri | | ar | | | | | 12:10pm | 12:43pm | can | | Filtrati | | | | | | | [place] | | on Rate | | | | | | | GFR | | Calc | | | | | | | CalcFor | | | | | | | | | | | | | | | | | | [place] | | | | | | | | | s, | | | | | | | | | multiply | | | | | | | | | the | | | | | | | | | calculat | | | | | | | | | ed GFR | | | | | | | | | by | | | | | | | | | 1.21Refe | | | | | | | | | rence | | | | | | | | | Range: | | | | | | | | | Above 60 | | | | | | | | | | | | | | | | | | mL/min/1 | | | | | | | | | .73m^2 | + + + +-------+ + + + + | Calcium | 8.9 | mg/dL | | 8.5-10.1 | 01/20/17 | 01/20/17 | | | Level | | | | | 12:10pm | 12:43pm | | + + + +-------+ + + + + | Total | 7.2 | g/dL | | 6.4-8.2 | 01/20/17 | 01/20/17 | | | Protein | | | | | 12:10pm | 12:43pm | | + + + +-------+ + + + + | Albumin | 3.7 | g/dL | | 3.4-5.0 | 01/20/17 | 01/20/17 | | | | | | | | 12:10pm | 12:43pm | | + + + +-------+ + + + + | Globulin | 3.5 | g/dL | | 2.2-4.0 | 01/20/17 | 01/20/17 | | | | | | | | 12:10pm | 12:43pm | | + + + +-------+ + + + + | Albumin/ | 1.1 | | | 0.8-1.8 | 01/20/17 | 01/20/17 | | | Globulin | | | | | 12:10pm | 12:43pm | | | Ratio | | | | | | | | + + + +-------+ + + + + | Total | 0.6 | mg/dL | | 0.1-1.0 | 01/20/17 | 01/20/17 | | | Bilirubi | | | | | 12:10pm | 12:43pm | | | n | | | | | | | | + + + +-------+ + + + + | Alkaline | 50 | U/L | | 50-136 | 01/20/17 | 01/20/17 | | | | | | | | 12:10pm | 12:43pm | | | Phosphat | | | | | | | | | ase | | | | | | | | + + + +-------+ + + + + | Aspartat | 82 | U/L | H | 12-37 | 01/20/17 | 01/20/17 | | | e Amino | | | | | 12:10pm | 12:43pm | | | Transf | | | | | | | | | (AST/SGO | | | | | | | | | T) | | | | | | | | + + + +-------+ + + + + | Alanine | 114 | U/L | H | 12-78 | 01/20/17 | 01/20/17 | | | Aminotra | | | | | 12:10pm | 12:43pm | | | nsferase | | | | | | | | | | | | | | | | | | (ALT/SGP | | | | | | | | | T) | | | | | | | | + + + +-------+ + + + + | Lipase | 277 | U/L | | 73-393 | 01/20/17 | 01/20/17 | | | | | | | | 12:10pm | 12:43pm | | + + + +-------+ + + + + Procedures No Known History of Procedures. Encounters + + + + + + | Encounter | Location | Arrival/Admit | Discharge/Depar | Attending | | | | Date | t Date | Provider | + + + + + + | Departed | [facility] | 01/20/17 | 01/20/17 3:01pm | Malachi Arevalo | | Emergency | [facility] | 11:36am | | ER MD | + + + + + + | Departed | [facility] | 01/12/17 | 01/12/17 4:15pm | Suzanne Heller | | Emergency | [facility] [place] | 12:07pm | | [employer] | + + + + + + + + + | Encounter Diagnosis | Onset Date | + + + | Abdominal pain | | + + +"
--- OUTSIDE RECORDS SUMMARY | ~2019-09-25 | XMS | Continuity of Care Document ---
Demographics + + + | Address | [address] | | | [place] [address] | + + + | Home Phone | | + + + | Preferred Language | Unknown | + + + | Marital Status | Unknown | + + + | Anabaptism Affiliation | Unknown | + + + | Race | Unknown | + + + | Ethnic Group | Unknown | + + + Author + + + | Author | [facility] | + + + | Organization | [facility] | + + + | Address | [address] | | | [place] [address] | + + + | Phone | | + + + Support + + + + + | Name | Relationship | Address | Phone | + + + + + | DOCTOR, NO PCP | Caregiver | [address] | | | | | [place] | | | | | [address] | | + + + + + | Harsha Crabtree MD | Caregiver | [address] | | | | | [place] | | | | | [address] | | + + + + + | JAYME KIRK | Next Of Kin | [place] [address] | | + + + + + Care Team Providers + + + + | Care Director Of Quality Improvement Name | Role | Phone | + + + + | IOANA CAMPO | Unavailable | | + + + + Insurance Providers + + + + + | Payer Name | Policy Number | Subscriber Name | Relationship | + + + + + | [facility] | [id number] | [place] | SELF | | [place] | | | | + + + [...] | | | + + + +--------+ Medications Current Home Medications + +------+-------+ + + + + + | Medicati | Dose | Units | Route | Directio | Days/Qty | Instruct | Start | | on | | | | ns | | ions | Date | + +------+-------+ + + + + + | Loperami | 2 | MG | ORAL | AFTER | 20 | MAXIMU | 01/08/17 | | de HCL | | | | EACH | | M 8 CAPS | | | (Loperam | | | | LOOSE B | | PER 24 | | | elpidio) 2 | | | | for | | HR | | | MG | | | | DIARRHEA | | | | | CAPSULE | | | | | | | | + +------+-------+ + + + + + | No | | | | | | | | | Historic | | | | | | | | | al | | | | | | | | | Medicati | | | | | | | | | ons . | | | | | | | | + +------+-------+ + + + + + | Ondanset | 1 | TAB | SUBLINGU | Every 8 | 10 | | 01/08/17 | | martir | | | AL | Hours as | | | | | (Zofran | | | | needed | | | | | Odt) 8 | | | | for | | [...] Needed as needed | | | | ([place] 5-325 | for PAIN | | | | Tablet) 1 Each | | | | | Tablet Tablet, 1-2 | | | | | Tab Oral | | | | + + + + + | Hydrocodone/Acetami | | Unknown | Discontinued | | nophen ([place] | | | | | 5MG-325MG) 5 [...] Mg | Pain | | | | ([place] 10-325 Mg) | | | | | 10 Mg/325 Mg Tab | | | | | Tab, 0.5-1 Tab Oral | | | | + + + + + | Hydrocodone/Apap | Every 6 Hours | 08/15/16 | Discontinued | | 5-325 Mg ([place] | | | | | 5-325 Mg) [...] + + + | Discharge Date | 01/08/17 | + + + | Disposition | HOME | + + + | Condition at Discharge | Fair | + + + | Instructions/Education Provided | Viral Gastroenteritis, Adult | + + + | Prescriptions | See Medications Section | + + + | Referrals | NO PCP DOCTOR - | + + + Functional Status No functional status results. Allergies, Adverse Reactions, Alerts + +---------+ + +--------+ + | Allergen | Type | Severity | Reaction | Status | Last Updated | + +---------+ + +--------+ + | Sulfa | Allergy | Unknown | ANAPHYLAXIS, | Active | 01/08/17 | | (Sulfonamide | | | HIVES | | | | | | | | | | | Antibiotics) | | | | | | + +---------+ + +--------+ + | codeine | Allergy | Unknown | | Active | 01/08/17 | + +---------+ + +--------+ + Immunizations No Known History of Immunizations. Vital Signs + + + + | Vital Reading | Collection Date/Time | Result | + + + + | Blood Pressure | 01/08/17 9:33am | 158/84 | + + + + | Blood Pressure Source | 06/17/16 4:24am | Right Arm | + + + + | Temperature | 01/08/17 9:33am | 99.0 F | + + + + | Temperature Source | 01/08/17 8:15am | Temporal | + + + + | Respiratory Rate | 01/08/17 9:33am | 16 | + + + + | Pulse Rate | 01/08/17 9:33am | 78 | + + + + | Bedside Pulse Oximetry | 01/08/17 9:33am | 94 | + + + + | Height | 01/08/17 8:15am | 6 ft 1 in | + + + + | Height | 01/08/17 8:15am | 185.42 cm | + + + + | Weight | 01/08/17 8:15am | 260 lb | + + + + | Weight | 01/08/17 8:15am | 117.93 kg | + + + + | Body Mass Index | 01/08/17 8:15am | 34.3 kg/m2 | + + + + Results Laboratory Results + +--------+ +-------+ + + + + | Test | Result | Units | Flags | Referenc | Collecti | Result | Comments | | Name | | | | e | on | Date/Miguel | | | | | | | | Date/Miguel | e | | | | | | | | e | | | + +--------+ +-------+ + + + + | White | 4.71 | K/mm3 | | 4.00-11. | 01/08/17 | 01/08/17 | | | Blood | | | | 30 | 8:17am | 8:36am | | | Count | | | | | | | | + +--------+ +-------+ + + + + | Red | 5.27 | M/mm3 | | 4.30-5.9 | 01/08/17 | 01/08/17 | | | Blood | | | | 0 | 8:17am | 8:36am | | | Count | | | | | | | | + +--------+ +-------+ + + + + | Hemoglob | 15.5 | g/dL | | 13.5-17. | 01/08/17 | 01/08/17 | | | in | | | | 5 | 8:17am | 8:36am | | + +--------+ +-------+ + + + + | Hematocr | 45.1 | % | | 37.0-53. | 01/08/17 | 01/08/17 | | | it | | | | 0 | 8:17am | 8:36am | | + +--------+ +-------+ + + + + | Mean | 86 | fL | | 80-100 | 01/08/17 | 01/08/17 | | | Corpuscu | | | | | 8:17am | 8:36am | | | lar | | | | | | | | | Volume | | | | | | | | + +--------+ +-------+ + + + + | Mean | 29.4 | pg | | 26.0-34. | 01/08/17 | 01/08/17 | | | Corpuscu | | | | 0 | 8:17am | 8:36am | | | lar | | | | | | | | | Hemoglob | | | | | | | | | in | | | | | | | | + +--------+ +-------+ + + + + | Mean | 34.4 | g/dL | | 31.5-36. | 01/08/17 | 01/08/17 | | | Corpuscu | | | | 5 | 8:17am | 8:36am | | | lar | | | | | | | | | Hemoglob | | | | | | | | | in | | | | | | | | | Concent | | | | | | | | + +--------+ +-------+ + + + + | RDW | 44.2 | fL | | 35.1-46. | 01/08/17 | 01/08/17 | | | Standard | | | | 3 | 8:17am | 8:36am | | | | | | | | | | | | Deviatio | | | | | | | | | n | | | | | | | | + +--------+ +-------+ + + + + | RDW | 14.2 | % | | 11.7-14. | 01/08/17 | 01/08/17 | | | Coeffici | | | | 2 | 8:17am | 8:36am | | | ent of | | | | | | | | | Variatio | | | | | | | | | n | | | | | | | | + +--------+ +-------+ + + + + | Platelet | 271 | K/mm3 | | 150-400 | 01/08/17 | 01/08/17 | | | Count | | | | | 8:17am | 8:36am | | + +--------+ +-------+ + + + + | Mean | 9.4 | fL | | 9.1-12.4 | 01/08/17 | 01/08/17 | | | Platelet | | | | | 8:17am | 8:36am | | | Volume | | | | | | | | + +--------+ +-------+ + + + + | Differen | Auto | | | | 01/08/17 | 01/08/17 | | | tial | | | | | 8:17am | 8:36am | | | Method | | | | | | | | + +--------+ +-------+ + + + + | Neutroph | 53 | % | | 41-73 | 01/08/17 | 01/08/17 | | | ils (%) | | | | | 8:17am | 8:36am | | | (Auto) | | | | | | | | + +--------+ +-------+ + + + + | Lymphocy | 35 | % | | 21-46 | 01/08/17 | 01/08/17 | | | wicho (%) | | | | | 8:17am | 8:36am | | | (Auto) | | | | | | | | + +--------+ +-------+ + + + + | Monocyte | 9 | % | | 4-13 | 01/08/17 | 01/08/17 | | | s (%) | | | | | 8:17am | 8:36am | | | (Auto) | | | | | | | | + +--------+ +-------+ + + + + | Eosinoph | 3 | % | | 0-6 | 01/08/17 | 01/08/17 | | | ils (%) | | | | | 8:17am | 8:36am | | | (Auto) | | | | | | | | + +--------+ +-------+ + + + + | Basophil | 1 | % | | 0-2 | 01/08/17 | 01/08/17 | | | s (%) | | | | | 8:17am | 8:36am | | | (Auto) | | | | | | | | + +--------+ +-------+ + + + + | Immature | 0 | % | | 0-1 | 01/08/17 | 01/08/17 | | | | | | | | 8:17am | 8:36am | | | Granuloc | | | | | | | | | yte % | | | | | | | | | (Auto) | | | | | | | | + +--------+ +-------+ + + + + | Nucleate | 0.0 | /100 WBC | | 0.0-0.2 | 01/08/17 | 01/08/17 | | | d Red | | | | | 8:17am | 8:36am | | | Blood | | | | | | | | | Cells % | | | | | | | | + +--------+ +-------+ + + + + | Absolute | 2.49 | K/mm3 | | 1.96-9.1 | 01/08/17 | 01/08/17 | | | | | | | 5 | 8:17am | 8:36am | | | Neutroph | | | | | | | | | ils | | | | | | | | | (auto) | | | | | | | | + +--------+ +-------+ + + + + | Absolute | 1.64 | K/mm3 | | 0.84-5.2 | 01/08/17 | 01/08/17 | | | | | | | 0 | 8:17am | 8:36am | | | Lymphocy | | | | | | | | | wicho | | | | | | | | | (auto) | | | | | | | | + +--------+ +-------+ + + + + | Absolute | 0.42 | K/mm3 | | 0.16-1.4 | 01/08/17 | 01/08/17 | | | | | | | 7 | 8:17am | 8:36am | | | Monocyte | | | | | | | | | s (auto) | | | | | | | | + +--------+ +-------+ + + + + | Absolute | 0.12 | K/mm3 | | 0.00-0.6 | 01/08/17 | 01/08/17 | | | | | | | 8 | 8:17am | 8:36am | | | Eosinoph | | | | | | | | | ils | | | | | | | | | (auto) | | | | | | | | + +--------+ +-------+ + + + + | Absolute | 0.03 | K/mm3 | | 0.00-0.2 | 01/08/17 | 01/08/17 | | | | | | | 3 | 8:17am | 8:36am | | | Basophil | | | | | | | | | s (auto) | | | | | | | | + +--------+ +-------+ + + + + | Absolute | 0.01 | K/mm3 | | 0.00-0.1 | 01/08/17 | 01/08/17 | | | | | | | 0 | 8:17am | 8:36am | | | Immature | | | | | | | | | | | | | | | | | | Granuloc | | | | | | | | | yte | | | | | | | | | (auto | | | | | | | | + +--------+ +-------+ + + + + | Nucleate | 0.00 | K/mm3 | | 0.00-0.0 | 01/08/17 | 01/08/17 | | | d RBC | | | | 2 | 8:17am | 8:36am | | | Absolute | | | | | | | | | Count | | | | | | | | | (auto) | | | | | | | | + +--------+ +-------+ + + + + | Sodium | 138 | mmol/L | | 136-145 | 01/08/17 | 01/08/17 | | | Level | | | | | 8:17am | 8:50am | | + +--------+ +-------+ + + + + | Potassiu | 3.8 | mmol/L | | 3.5-5.5 | 01/08/17 | 01/08/17 | | | m Level | | | | | 8:17am | 8:50am | | + +--------+ +-------+ + + + + | Chloride | 102 | mmol/L | | 98-108 | 01/08/17 | 01/08/17 | | | Level | | | | | 8:17am | 8:50am | | + +--------+ +-------+ + + + + | Carbon | 26 | mmol/L | | 21-32 | 01/08/17 | 01/08/17 | | | Dioxide | | | | | 8:17am | 8:50am | | | Level | | | | | | | | + +--------+ +-------+ + + + + | Anion | 10 | mmol/L | | 6-16 | 01/08/17 | 01/08/17 | | | Gap | | | | | 8:17am | 8:50am | | + +--------+ +-------+ + + + + | Glucose | 98 | mg/dL | | 70-99 | 01/08/17 | 01/08/17 | | | Level | | | | | 8:17am | 8:50am | | + +--------+ +-------+ + + + + | Blood | 8 | mg/dL | | 8-24 | 01/08/17 | 01/08/17 | | | Urea | | | | | 8:17am | 8:50am | | | Nitrogen | | | | | | | | + +--------+ +-------+ + + + + | Creatini | 0.72 | mg/dL | | 0.60-1.2 | 01/08/17 | 01/08/17 | | | ne | | | | 0 | 8:17am | 8:50am | | + +--------+ +-------+ + + + + | BUN/Crea | 11.1 | % | L | 12.0-20. | 01/08/17 | 01/08/17 | | | tinine | | | | 0 | 8:17am | 8:50am | | | Ratio | | | | | | | | + +--------+ +-------+ + + + + | Glomerul | >60 | | | 60- | 01/08/17 | 01/08/17 | Non-Afri | | ar | | | | | 8:17am | 8:50am | can | | Filtrati | | | | | | | [place] | | on Rate | | | | | | | GFR | | Calc | | | | | | | CalcFor | | | | | | | | | | | | | | | | | | [place] | | | | | | | [...] | | | | .73m^2 | + +--------+ +-------+ + + + + | Calcium | 8.9 | mg/dL | | 8.5-10.1 | 01/08/17 | 01/08/17 | | | Level | | | | | 8:17am | 8:50am | | + +--------+ +-------+ + + + + | Total | 7.8 | g/dL | | 6.4-8.2 | 01/08/17 | 01/08/17 | | | Protein | | | | | 8:17am | 8:50am | | + +--------+ +-------+ + + + + | Albumin | 3.8 | g/dL | | 3.4-5.0 | 01/08/17 | 01/08/17 | | | | | | | | 8:17am | 8:50am | | + +--------+ +-------+ + + + + | Globulin | 4.0 | g/dL | | 2.2-4.0 | 01/08/17 | 01/08/17 | | | | | | | | 8:17am | 8:50am | | + +--------+ +-------+ + + + + | Albumin/ | 1.0 | | | 0.8-1.8 | 01/08/17 | 01/08/17 | | | Globulin | | | | | 8:17am | 8:50am | | | Ratio | | | | | | | | + +--------+ +-------+ + + + + | Total | 0.4 | mg/dL | | 0.1-1.0 | 01/08/17 | 01/08/17 | | | Bilirubi | | | | | 8:17am | 8:50am | | | n | | | | | | | | + +--------+ +-------+ + + + + | Alkaline | 61 | U/L | | 50-136 | 01/08/17 | 01/08/17 | | | | | | | | 8:17am | 8:50am | | | Phosphat | | | | | | | | | ase | | | | | | | | + +--------+ +-------+ + + + + | Aspartat | 63 | U/L | H | 12-37 | 01/08/17 | 01/08/17 | | | e Amino | | | | | 8:17am | 8:50am | | | Transf | | | | | | | | | (AST/SGO | | | | | | | | | T) | | | | | | | | + +--------+ +-------+ + + + + | Alanine | 89 | U/L | H | 12-78 | 01/08/17 | 01/08/17 | | | Aminotra | | | | | 8:17am | 8:50am | | | nsferase | | | | | | | | | | | | | | | | | | (ALT/SGP | | | | | | | | | T) | | | | | | | | + +--------+ +-------+ + + + + | Lipase | 286 | U/L | | 73-393 | 01/08/17 | 01/08/17 | | | | | | | | 8:17am | 8:50am | | + +--------+ +-------+ + + + + Procedures No Known History of Procedures. Encounters + + + + + + | Encounter | Location | Arrival/Admit | Discharge/Depar | Attending | | | | Date | t Date | Provider | + + + + + + | Departed | [facility] | 01/08/17 8:03am | 01/08/17 | Harsha Crabtree MD | | Emergency | [facility] | | 10:15am | | + + + + + + + + + | Encounter Diagnosis | Onset Date | + + + | Viral gastroenteritis | | + + +"
--- OUTSIDE RECORDS SUMMARY | ~2019-09-25 | XMS | Clinical Summary ---
Demographics + + + | Address | General Delivery | | | [place] [address] | + + + | Home Phone | ;ext=[phone] | + + + | Preferred Language | Unknown | + + + | Marital Status | U | + + + | Temple Affiliation | Unknown | + + + | Race | White | + + + | Ethnic Group | Not or | + + + Author + + + | Author | [facility] | + + + | Organization | [facility] | + + + | Address | [address] | | | [place] [address] | + + + | Phone | Unavailable | + + + Care Team Providers + +------+ + | Care Generator Worker Name | Role | Phone | + +------+ + | Mariah Villalobos | PCP | | + +------+ + [...] | | tion | | +---------+---------+---------+---------+---------+---------+---------+---------+---------+ | COSTOCH | [id number] | | Active | | Marisel | | Costal | | | ONDRITI | 4 | | | | Rubio | | chondri | | | S, LEFT | (SNOMED | | | | INFLATED PAD BUFFER | | tis | | | | CT) | | | | | | | | +---------+---------+---------+---------+---------+---------+---------+---------+---------+ | URI | [id number] | | Active | | Marisel | | Upper | | | | 9 | | | | Rubio | | respira | | | | (SNOMED | | | | INFLATED PAD BUFFER | | tory | | | | CT) | | | | | | infecti | | | | | | | | | | on | | +---------+---------+---------+---------+---------+---------+---------+---------+---------+ | RIB | [id number] | | Active | | Marisel | | Rib | | | PAIN ON | 02 | / | | / | Rubio | | pain | | | LEFT | (SNOMED | | | | INFLATED PAD BUFFER | | | | | SIDE | CT) | | | | | | | | +---------+---------+---------+---------+---------+---------+---------+---------+---------+ | POST- | [id number] | | Active | | Marisel | | Postvir | | | RAL | 04 | / | | | Rubio | | al | | | COUGH | (SNOMED | | | | INFLATED PAD BUFFER | | cough | | | SYNDROM | CT) | | | | | | | | | E | | | | | | | | | +---------+---------+---------+---------+---------+---------+---------+---------+---------+ | EPISTAX | [id number] | | Active | | David | | Epistax | | | IS, | 1 | /19 | | /19 | Chicker | | is | | | RECURRE | (SNOMED | | | | ing [place] | | | | | NT | CT) | | | | | | | | +---------+---------+---------+---------+---------+---------+---------+---------+---------+ | NASAL | [id number] | | Active | | David | | Nasal | | | POLYP | 5 | /19 | | /19 | [place] | | polyp | | | | (SNOMED | | | | ing [place] | | | | | | CT) | | | | | | | | +---------+---------+---------+---------+---------+---------+---------+---------+---------+ | BRONCHI | [id number] | | Active | | David | | Bronchi | | | TIS | 4 | /19 | | /19 | [place]icker | | tis | | | | (SNOMED | | | | ing [place] | | | | | | CT) | | | | | | | | +---------+---------+---------+---------+---------+---------+---------+---------+---------+ | ACUTE | [id number] | | Active | | David | | Common | | | NASOPHA | 6 | /19 | | /19 | [place] | | cold | | | RYNGITI | (SNOMED | | | | ing [place] | | | | | S | CT) | | | | | | | | +---------+---------+---------+---------+---------+---------+---------+---------+---------+ | ADJUSTM | [id number] | | Active | | Mariah | | Adjustm | | | ENT | 0 | /24 | | / | Victor | | ent | | | DISORDE | (SNOMED | | | | CSWA | | disorde | | | R WITH | CT) | | | | | | r with | | | ANXIETY | | | | | | | anxious | | | | | | | | | | mood | | +---------+---------+---------+---------+---------+---------+---------+---------+---------+ | CHRONIC | [id number] | | Active | | Faina | | Chronic | | | PAIN | | | | | [place] | | pain | | | SYNDROM | (SNOMED | | | | THORACIC SURGEON | | syndrom | | | E | CT) | | | | | | e | | +---------+---------+---------+---------+---------+---------+---------+---------+---------+ | PAIN | [id number] | | Active | | Faina | | Psychal | | | DISORDE | | / | | / | [place] | | urban | | | R | (SNOMED | | | | THORACIC SURGEON | | | | | ASSOCIA | [...] | | | +---------+---------+---------+---------+---------+---------+---------+---------+---------+ | ANEMIA | [id number] | | Active | | Florecita | | Anemia | | | | 00 | / | | | Suhr | | | | | | (SNOMED | | | | INFLATED PAD BUFFER-C | | | | | | CT) | | | | | | | | +---------+---------+---------+---------+---------+---------+---------+---------+---------+ | APHTHOU | [id number] | | Active | | Charlen | | Aphthou | | | S ULCER | 05 | / | | | e Pimentel | | s ulcer | | | OF | (SNOMED | | | | CCMA | | of | | | MOUTH | CT) | | | | | | mouth | | +---------+---------+---------+---------+---------+---------+---------+---------+---------+ | DIFFICU | [id number] | | Active | | Nayan | | Walking | | | LTY IN | 08 | /20 | | /20 | [place]che | | | | | WALKING | (SNOMED | | | | r DO | | disabil | | | | CT) | | | | | | ity | | +---------+---------+---------+---------+---------+---------+---------+---------+---------+ | TOTAL | [id number] | | Active | | Florecita | | Total | | | HIP | 7 | / | | /17 | Suhr | | replace | | | ARTHROP | (SNOMED | | | | INFLATED PAD BUFFER-C | | ment of | | | LASTY, | CT) | | | | | | hip | | | LEFT | | | | | | | | | +---------+---------+---------+---------+---------+---------+---------+---------+---------+ | OSTEOAR | M19.90 | | Resolve | | Florecita | | Unspeci | | | THROSIS | (ICD-10 | | d | | Suhr | | fied | | | , | -CM) | | | | INFLATED PAD BUFFER-C | | osteoar | | | LOCALIZ [...] | | | +---------+---------+---------+---------+---------+---------+---------+---------+---------+ | FOOT | [id number] | | Resolve | | Florecita | | Foot | | | PAIN, | 7 | /15 | d | /15 | Suhr | | pain | | | RIGHT | (SNOMED | | | | INFLATED PAD BUFFER-C | | | | | | CT) | | | | | | | | +---------+---------+---------+---------+---------+---------+---------+---------+---------+ | RECTAL | [id number] | | Resolve | | Florecita | | Rectal | per | | BLEEDIN | 2 | /15 | d | /15 | Suhr | | hemorrh | Sacred | | G | (SNOMED | | | | INFLATED PAD BUFFER-C | | age | Heart | | | CT) | | | | | | | [facility] | | | | | | | | | | nd ER | | | | | | | | | | visit | | | | | | | | | | 05/11/14 | +---------+---------+---------+---------+---------+---------+---------+---------+---------+ | ANAL | [id number] | | Resolve | | Florecita | | Anal | per | | FISSURE | 6 | /30 | d | /30 | Suhr | | fissure | Alexander | | | (SNOMED | | | | INFLATED PAD BUFFER-C | | | [place] | | | CT) | | | | | | | MD | +---------+---------+---------+---------+---------+---------+---------+---------+---------+ | NEW | [id number] | | Resolve | | Florecita | | Procedu | | | PATIENT | 03 | / | d | /24 | Suhr | | re | | | | (SNOMED | | | | INFLATED PAD BUFFER-C | | carried | | | CONSULT | CT) | | | | | | out on | | | ATION | | | | | | | | | | | | | | | | | subject | | +---------+---------+---------+---------+---------+---------+---------+---------+---------+ | AVASCUL | [id number] | | Active | | Prabhakar | | Avascul | | | AR | 03 | | | / | | | ar [...] femur | | +---------+---------+---------+---------+---------+---------+---------+---------+---------+ | URI | [id number] | | Inactiv | | Loraine | [...] on | | +---------+---------+---------+---------+---------+---------+---------+---------+---------+ | HYPERTE | [id number] | | Active | | Rudy | | Hyperte | | | NSION | 3 | /24 | | / | Monteir | | nsive | | | | (SNOMED | | | | o MD | | disorde | | | | CT) | | | | | | r | | +---------+---------+---------+---------+---------+---------+---------+---------+---------+ | ELEVATE | [id number] | | Active | | Rudy | | Hypergl | | | D BLOOD | 7 | /24 | | /24 | Monteir | | ycemia | | | SUGAR | (SNOMED | | | | o MD | | | | | | CT) | | | | | | | | +---------+---------+---------+---------+---------+---------+---------+---------+---------+ | NEW | [id number] | | Removed | | Rudy | | Procedu | | | PATIENT | | / | | | Monteir | | re | | | | (SNOMED | | | | o MD | | carried | | | CONSULT | CT) | | | | | | out on | | | ATION | | | | | | | | | | | | | | | | | subject | | +---------+---------+---------+---------+---------+---------+---------+---------+---------+ | SCREENI | 3875194 | | Resolve | | Rudy | [...] ng | | +---------+---------+---------+---------+---------+---------+---------+---------+---------+ | SCREENI | [id number] | | Resolve | | Rudy | | Alcohol | | | NG FOR | 01 | /19 | d | /19 | Monteir | | | | | ALCOHOL | (SNOMED | | | | o MD | | consump | | | ISM | CT) | | | | | | tion | | | | | | | | | | screeni | | | | | | | | | | ng | | +---------+---------+---------+---------+---------+---------+---------+---------+---------+ | NICOTIN | [id number] | | Active | | Prabhakar | | Nicotin | | | E | 8 | /08 | | /08 | | | e | | | ADDICTI | (SNOMED | | | | VanAnro | | depende | | | ON | CT) | | | | oy MD | | nce | | +---------+---------+---------+---------+---------+---------+---------+---------+---------+ | ASEPTIC | [id number] | | Inactiv | | Ann | | Aseptic | | | | 05 | /28 | e | /28 | Yarbrou | [...] hip | | +---------+---------+---------+---------+---------+---------+---------+---------+---------+ | URI | [id number] | | Inactiv | | Phan | | Upper | | | | 9 | /19 | e | /19 | Middlek | | respira | | | | (SNOMED | | | | auff | | tory | | | | CT) | | | | INFLATED PAD BUFFER | | infecti | | | | | | | | | | on | | +---------+---------+---------+---------+---------+---------+---------+---------+---------+ | SORE | [id number] | | Inactiv | | Phan | | Pain in | | | THROAT | 03 | /19 | e | /19 | Middlek | | throat | | | | (SNOMED | | | | auff | | | | | | CT) | | | | INFLATED PAD BUFFER | | | | +---------+---------+---------+---------+---------+---------+---------+---------+---------+ | OTHER | 6238475 | | Active | | Prabhakar | [...] | | | +---------+---------+---------+---------+---------+---------+---------+---------+---------+ | OPIOID | 3346493 | | Active | | Phan | | Nondepe | | | ABUSE, | 05 | / | | / | Middlek | | ndent | | | CONTINU | (SNOMED | | | | auff | | opioid | | | OUS | CT) | | | | INFLATED PAD BUFFER | | abuse, | | | | | | | | | | continu | | | | | | | | | | ous | | +---------+---------+---------+---------+---------+---------+---------+---------+---------+ | HIP | 9521715 | | Active | | Phan | | Hip | | | PAIN, | 2 | / | | | Middlek | | pain | | | LEFT | (SNOMED | | | | auff | | | | | | CT) | | | | INFLATED PAD BUFFER | | | | +---------+---------+---------+---------+---------+---------+---------+---------+---------+ | UPPER | 2127574 | | Inactiv | | Malachi K | | Viral | | | RESPIRA | 04 | | e | | Dye | | upper | | [...] on | | +---------+---------+---------+---------+---------+---------+---------+---------+---------+ | BRACHIA | [id number] | | Inactiv | | Malachi Levin | | Brachia | | | L | | | e | | Yde | | l | | | NEURITI [...] | | | +---------+---------+---------+---------+---------+---------+---------+---------+---------+ | RIB | [id number] | | Inactiv | | Malachi Levin | | Rib | | | PAIN | | | e | | Dye | | pain | | | | (SNOMED | | | | ACNP | | | | | | CT) | | | | | | | | +---------+---------+---------+---------+---------+---------+---------+---------+---------+ | LESION | 6258997 | | Active | | Clementina | | Plantar | | | OF | 04 | /02 | | /02 | | | nerve [...] | | | +---------+---------+---------+---------+---------+---------+---------+---------+---------+ | ANAL | 6082377 | | Removed | | Karissa | | Anal | per Dr. | | FISSURE | | | | | Sea | | fissure | Alexander | | | (SNOMED | | | | RN | | | [place] | | | CT) | | | | | | | MD | +---------+---------+---------+---------+---------+---------+---------+---------+---------+ | RECTAL | 3911391 | | Removed | | Rodrigo | | Rectal | per | | BLEEDIN | | | | | Jatin | | hemorrh | Sacred | | [...] | 05/11/14 | +---------+---------+---------+---------+---------+---------+---------+---------+---------+ | SCREENI | [id number] | | Removed | | Juan | | Alcohol | | | NG FOR | | | | Vishal | | | | | ALCOHOL | (SNOMED | | | | s DO | | consump | | | ISM | CT) | | | | | | tion | | | | | | | | | | screeni | | | | | | | | | | ng | | +---------+---------+---------+---------+---------+---------+---------+---------+---------+ | SCREENI | 6774221 | | Removed | | Andriy | | Alcohol | | | NG FOR | 01 | /19 | | /19 | Padovic | | | | | ALCOHOL | (SNOMED | | | | h INFLATED PAD BUFFER | | consump | | | ISM | CT) | | | | | | tion | | | | | | | | | | screeni | | | | | | | | | | ng | | +---------+---------+---------+---------+---------+---------+---------+---------+---------+ | FOOT | [id number] | | Removed | | Skye | | Foot | | | PAIN, | 7 | /15 | | /15 | Epifanio | | pain | | | RIGHT | (SNOMED | | | | INFLATED PAD BUFFER | | | | | | CT) [...] | 1 | | | BISACODYL | [id number] | Florecita | | 10 MG | suppositor | | | | 1 | Suhr INFLATED PAD BUFFER-C | | SUPP | y QHS PRN [...] | | | | | | | INFLATED PAD BUFFER | + + + + + + + + | MIRALAX | 17grams | | | POLYETHYLE | 2369276093 | Melvina | | POWD | mixed [...] Apply prn | | | BALSAM | [id number] | Nayan | | 650-72.5 | to lower | | | JOSEPH-GEOVANY | 3 | [place] | | MG/0.82ML | lip for | [...] 1 lozenge | | | BENZOCAINE | [id number] | Karma | | SORE | every 2 | | | -MENTHOL | 0 | [place] | | THROAT | hours as [...] cap BID | | | DOCUSATE | [id number] | Florecita | | MG CAPS | | | | SODIUM | 0 | Mariselahr INFLATED PAD BUFFER-C | + + + + + + + + | [facility] LYSINE | take 1 tab | | | LYSINE | 7238665565 | David | | 1000 MG | [...] tab BID | | | CYCLOBENZA | [id number] | Florecita | | YESSY HCL | PRN muscle | | | YESSY HCL | 1 | Mariselahr INFLATED PAD BUFFER-C | | 10 MG TABS | pain | | | | | | + + + + + + + + | NORCO | 1 every 8 | | | HYDROCODON | [id number] | Rudy | | 5-325 MG | hours as | | | E-ACETAMIN | 1 | Yaquelin | | TABS | needed | | | OPHEN | | MD | + + + + + + + + | NORCO | 1 tab po | | | HYDROCODON | 6579173256 | Karma | | 5-325 MG | QD | | | E-ACETAMIN | 1 | Berenice CONRAD | | TABS | | | | OPHEN | | | + + + + + + + + | OXYCODONE | 3-4 per | | | OXYCODONE | 7187414787 | Karma | | HCL 10 MG | day | | | HCL | 1 | Berenice CONRAD | | TABS | | | | | | | + + + + + + + + | OXYCODONE | 1 tab q 4 | | | OXYCODONE | 8666041257 | Karma | | HCL 15 MG | hrs PRN | | | HCL | 1 | Berenice CONRAD | | TABS | pain | | | | | | + + + + + + + + | HYDROCODON | Take 1 tab | | | HYDROCODON | 5909725976 | Melvina | | E-ACETAMIN | po | | | E-ACETAMIN | 1 | Margarito CCMA | | OPHEN | BID/PRN | | | OPHEN | | | | 7.5-325 MG | | | | | | | | TABS | | | | | | | + + + + + + + + | TRAMADOL | take 1 tab | | | TRAMADOL | 6381214455 | Karma | | HCL 50 MG | nightly | | | HCL | 1 | Berenice CONRAD | | TABS | | | | | | | + + + + + + + + | NO | | | | NO | | Prabhakar | | SCHEDULED | | | | SCHEDULED | | VanMelanie | | 2 DRUGS | | | | 2 DRUGS | | MD | | PER | | | | PER | | | | | | | | | | | | S. | | | | S. | | | + + + + + + + + | OXYCODONE- | Take 1 tab | | | OXYCODONE- | 4247984509 | Phan | | ACETAMINOP | by mouth | | | ACETAMINOP | 5 | Middlekauf | | HEN 5-325 | three | | | HEN | | f INFLATED PAD BUFFER | | MG TABS | times per [...] Inhale 2 | | | ALBUTEROL | [id number] | Malachi Levin | | 108 (90 [...] 4-6 per | | | HYDROCODON | 6333347981 | Prabhakar | | 5-325 MG | day | | | E-ACETAMIN | 1 | VanMelanie | | TABS | | | | OPHEN | | MD | + + + + + + + + | COUMADIN 4 | 1 tab | | | WARFARIN | 5768896552 | David | | MG TABS | [...] Apply prn | | | BALSAM | 0297981101 | David | | 650-72.5 | to [...] | 17grams | | | POLYETHYLE | 3295946943 | David | | POWD | mixed [...] 1 tab | | | WARFARIN | 6581335607 | Florecita | | MG TABS | daily | | | SODIUM | 0 | Suhr INFLATED PAD BUFFER-C | + + + + + + + + | OXYCODONE | 3-4 per | | | OXYCODONE | 1184396223 | Rudy | | HCL 10 MG | day | | | HCL | 1 | Yaquelin | | TABS | | | | | | MD | + + + + + + + + | TESSALON | Take three | | | BENZONATAT | 4410421930 | Karma | | RACHEL 100 | times a [...] | three | | | IBUPROFEN | 9739621002 | Prabhakar | | 600 MG | times per | | | | 0 | VanMarinerooy | | TABS | day | | | | | MD | + + + + + + + + | LISINOPRIL | 1 tab one | | | LISINOPRIL | 6988367537 | David | | 20 MG | time per | | | | 1 | [place] | | TABS | day | | | | | [place] | + + + + + + + + | [facility] MILK | prn | | | MAGNESIUM | 0874292924 | David | | OF | constipati [...] cap BID | | | DOCUSATE | [id number] | David | | MG CAPS | | | | SODIUM | 0 | [place] | | | | | | | | [place] | + + + + + + + + | TYLENOL 8 | 1 tablet | | | ACETAMINOP | 1012416522 | Nayan | | HOUR | every 4 | | | HEN | 1 | [place] | | ARTHRITIS | hours as | [...] TAB Q6 | | | TRAMADOL | 3626198881 | Rudy | | HCL 50 MG | HRS PRN | | | HCL | 1 | Yaquelin | | TABS | PAIN | | | | | MD | + + + + + + + + | CLINDAMYCI | 1 tab by | | | CLINDAMYCI | 2594232264 | Tommy | | N HCL 150 [...] | | | N HOSE | | Pimentel CCMA | | MEN'S | morning | | | MEN'S | | | | | and take | | | | | | | | off at | | | | | | | | bedtime | | | | | | + + + + + + + + | PROAIR HFA | Inhale 2 | | | ALBUTEROL | 2500674184 | Phan | | 108 (90 | puffs | | | SULFATE | 2 | Middlekauf | | Base) | every 4 | | | | | f INFLATED PAD BUFFER | | MCG/ACT | hours as | [...] tab q | | | OXYCODONE- | 6798071154 | Florecita | | 7.5-325 MG | 4 hrs for | | | ACETAMINOP | 0 | Suhr INFLATED PAD BUFFER-C | | TABS | pain, hold | [...] po bid | | | HYDROCODON | 6424113242 | Cyndi Everett | | E-ACETAMIN | prn severe | | | E-ACETAMIN | 1 | NCMA | | OPHEN | pain | | | OPHEN | | | | 5-325 MG | | | | | | | | TABS | | | | | | | + + + + + + + + | NORCO | 4-6 per | | | HYDROCODON | 1712530295 | Karma | | 5-325 MG | day | | | E-ACETAMIN | 1 | Berenice CONRAD | | TABS | | | | OPHEN | | | + + + + + + + + | TRAMADOL | 1-2 TAB | | | TRAMADOL | 2162544624 | David | | HCL 50 MG | BID PRN | | | HCL | 1 | [place] | | TABS | PAIN | | | | | [place] | + + + + + + + + | GUAIFENESI | 1 tab | | | GUAIFENESI | 9382160911 | Karma | | N 400 MG | every 4 | | | N | 0 | Berenice CONRAD | | TABS | hours as | [...] 2tabs po | | | VARENICLIN | 4852812049 | Rudy | | MG TABS | qd | | | E TARTRATE | 6 | Yaquelin | | | | | | | | MD | + + + + + + + + | BISAC-EVAC | 1 | | | BISACODYL | 3110580259 | David | | 10 MG | [...] 1 tab | | | PSEUDOEPHE | 4062636998 | Phan | | DRINE HCL | by mouth | | | DRINE HCL | 2 | Middlekauf | | 30 MG TABS | four times | | | | | f INFLATED PAD BUFFER | | | per day | | [...] 1tab by | | | HYDROCODON | 6131613424 | David | | 7.5-325 MG | [...] Take 1 | | | DOXYCYCLIN | 6906526308 | Malachi Levin | | E HYCLATE [...] MOUTHWASH | | [place] | | | swamuroow | | | | | MA | | | every | | | | | | | | 4-6hrs or | | | | | | | | with meals | | | | | | + + + + + + + + | MOBIC 7.5 | 1 tablet | | | MELOXICAM | 0808775803 | Phan | | MG TABS | by mouth | | | | 1 | Middlekauf | | | daily. | | | | | f INFLATED PAD BUFFER | | | Must last | | | | | | | | 30 days. | | | | | | + + + + + + + + | CLINDAMYCI | 1 tab by | | | CLINDAMYCI | 6039967773 | Malachi K | | N HCL [...] | prn | | | MAGNESIUM | 8194951938 | Melvina | | OF | constipati | | | HYDROXIDE | 5 | Pimentel CCMA | | MAGNESIA | on | | | | | | | 1200 | | | | | | | | MG/15ML | | | | | | | | SUSP | | | | | | | + + + + + + + + | IBUPROFEN | 4 By mouth | | | IBUPROFEN | 0181862697 | Andriy | | 200 MG | 3 times a | | | | 1 | Padovich | | TABS | day | | | | | INFLATED PAD BUFFER | + + + + + + + + | CHANTIX 1 | 1 tab two | | | VARENICLIN | 3272525957 | Karma | | MG TABS | times per | | | E TARTRATE | 6 | Berenice CONRAD | | | day | | | | | | + + + + + + + + | HYDROCODON | Take 1 tab | | | HYDROCODON | 2149105434 | Karma | | E-ACETAMIN | po [...] tab BID | | | CYCLOBENZA | 7262337486 | David | | YESSY HCL | PRN muscle | | | YESSY HCL | 1 | [place] | | 10 MG TABS | pain | | | | | [place] | + + + + + + + + | IBUPROFEN | three | | | IBUPROFEN | 7302174540 | Rudy | | 600 MG | times per | | | | 0 | Yaquelin | | TABS | day | | | | | MD | + + + + + + + + | CHANTIX | follow | | | VARENICLIN | 5653721235 | Marisel | | STARTING | coco | | | E TARTRATE | 3 | Rubio DEL CID | | NILSA DE JESUS | [place] on box | | | | | | | 0.5 MG X | | | | | | | | 11 & 1 MG | | | | | | | | X 42 TABS | | | | | | | + + + + + + + + | TRAMADOL | take 1 by | | | TRAMADOL | 3194343327 | Marisel | | HCL 50 MG | mouth | | | HCL | 1 | Rubio INFLATED PAD BUFFER | | TABS | every 6 | | | | | | | | hours | | | | | | + + + + + + + + | PSEUDOEPHE | 1-2 | | | PSEUDOEPHE | 2281981605 | Marisel | | DRINE HCL | tablets | | | DRINE HCL | 2 | Rubio INFLATED PAD BUFFER | | 30 MG TABS | every [...] | 1-2 | | | PSEUDOEPHE | 2486579874 | Marisel | | DRINE HCL | tablets | | | DRINE HCL | 2 | Rubio INFLATED PAD BUFFER | | 30 MG TABS | every [...] 1 spray | | | FLUTICASON | 8114851297 | Marisel | | ALLERGY | eash | | | E | 2 | Rubio INFLATED PAD BUFFER | | RELIEF 50 | nostril | | | PROPIONATE | | | | MCG/ACT | once a day | | | | | | | SUSP | | | | | | | + + + + + + + + | GUAIFENESI | take 1 to | | | GUAIFENESI | 8930262255 | Marisel | | N 200 MG | 2 tablets | | | N | 0 | Rubio GUPTAP | | TABS | by mouth | [...] take 1tab | | | VARENICLIN | 6472020760 | Rudy | | MG TABS | po daily | | | E TARTRATE | 6 | Yaquelin | | | | | | | | MD | + + + + + + + + | LISINOPRIL | 1 tab one | | | LISINOPRIL | 6703724635 | Rudy | | 20 MG | time per | | | | 1 | Yaquelin | | TABS | day | | | | | MD | + + + + + + + + | ELAVIL 25 | Take 1 | | | AMITRIPTYL | 5037672499 | Rudy | | MG TABS | tab po QHS | | | INE HCL | 0 | Yaquelin | | | | | | | | MD | + + + + + + + + | TRAMADOL | 1-2 TAB | | | TRAMADOL | 4056552620 | Rudy | | HCL 50 MG | BID PRN | | | HCL | 1 | Yaquelin | | TABS | PAIN | | | | | MD | + + + + + + + + | TRAMADOL | 1 TAB BID | | | TRAMADOL | 7288426930 | Rudy | | HCL 50 MG | PRN PAIN | | | HCL | 1 | Yaquelin | | TABS | | | | | | MD | + + + + + + + + | NORCO | 1tab by | | | HYDROCODON | 1654174922 | Rudy | | 7.5-325 MG | [...] TAB Q6 | | | TRAMADOL | 3694826352 | Prabhakar | | HCL 50 MG | HRS PRN | | | HCL | 1 | VanAnrooy | | TABS | PAIN | | | | | MD | + + + + + + + + | NORCO | 1tab po | | | HYDROCODON | [id number] | Rudy | | 7.5-325 MG | [...] tab po | | | HYDROCODON | [id number] | Rudy | | 5-325 MG | QD | | | E-ACETAMIN | 1 | Yaquelin | | TABS | | | | OPHEN | | MD | + + + + + + + + | TRAMADOL | take 1 tab | | | TRAMADOL | [id number] | Rudy | | HCL 50 MG | nightly | | | HCL | 1 | Yaquelin | | TABS | | | | | | MD | + + + + + + + + | NORCO | 1 every 8 | | | HYDROCODON | [id number] | Prabhakar | | 5-325 MG | hours as | | | E-ACETAMIN | 1 | VanAnrooy | | TABS | needed | | | OPHEN | | MD | + + + + + + + + | OXYCODONE | 1 tab q 4 | | | OXYCODONE | [id number] | Florecita | | HCL 15 MG | hrs PRN | | | HCL | 1 | Suhr INFLATED PAD BUFFER-C | | TABS | pain | | | | | | + + + + + + + + | [facility] LYSINE | take 1 tab | | | LYSINE | [id number] | Rudy | | 1000 MG | daily | | | | 9 | Yaquelin | | TABS | | | | | | MD | + + + + + + + + | MAGIC | 5ml swish | | | MAGIC | | Rudy | | MOUTHWASH | and | | | MOUTHWASH | | Yaqeulin | | | swollow | | | | | MD | | | every | | | | | | | | 4-6hrs or | | | | | | | | with meals | | | | | | + + + + + + + + | PERCOCET | 1-2 tab q | | | OXYCODONE- | [id number] | Florecita | | 7.5-325 MG | 4 hrs for | | | ACETAMINOP | 0 | Suhr INFLATED PAD BUFFER-C | | TABS | pain, hold | | | HEN | | | | | if | | | | | | | | somnolent | | | | | | | | or asleep. | | | | | | + + + + + + + + | PERCOCET | 1-2 tab q | | | OXYCODONE- | [id number] | Florecita | | 7.5-325 MG | 4 hrs PRN | | | ACETAMINOP | 0 | Suhr INFLATED PAD BUFFER-C | | TABS | pain, | | | HEN | | | | | dispense | | | | | | | | #84 | | | | | | + + + + + + + + | TESSALON | Take three | | | BENZONATAT | [id number] | Loraine | | RACHEL 100 | times a | | | E | 1 | Sutherland PA-C | | MG CAPS | day as [...] 1tab po | | | VARENICLIN | [id number] | Rudy | | MG TABS | bid | | | E TARTRATE | 6 | Yaquelin | | | | | | | | MD | + + + + + + + + | HYDROCODON | Take 1 tab | | | HYDROCODON | [id number] | Rudy | | E-ACETAMIN | po [...] po qd | | | LISINOPRIL | [id number] | Rudy | | 20 MG | | | | | 1 | Yaquelin | | TABS | | | | | | MD | + + + + + + + + | TRAMADOL | 1 TAB Q6 | | | TRAMADOL | [id number] | Prabhakar | | HCL 50 MG | HRS PRN | | | HCL | 1 | VanAnrooy | | TABS | PAIN | | | | | MD | + + + + + + + + | CEPACOL | 1 lozenge | | | BENZOCAINE | [id number] | Phan | | SORE | every 2 | | | -MENTHOL | 0 | Middlekauf | | THROAT | hours as | | | | | f INFLATED PAD BUFFER | | 10-2.1 MG | needed for | | | | | | | LOZG | sore | | | | | | | | throat | | | | | | + + + + + + + + | GUAIFENESI | 1 tab | | | GUAIFENESI | [id number] | Phan | | N 400 MG | every 4 | | | N | 0 | [facility] | | TABS | hours as | | | | | f INFLATED PAD BUFFER | | | needed for | | | | | | | | | | | | | | | | cough/yaw | | | | | | | | estion | | | | | | + + + + + + + + | PSEUDOEPHE | Take 1 tab | | | PSEUDOEPHE | [phone] | Malachi Levin | | DRINE HCL [...] Take 3 | | | PREDNISONE | [id number] | Malachi K | | 20 MG | tabs by [...] 1 tab | | | OXYCODONE- | [id number] | Malachi Levin | | ACETAMINOP | [...] 1 tab | | | CYCLOBENZA | [id number] | Malachi Levin | | YESSY HCL [...] Take 1 | | | GABAPENTIN | [id number] | Malachi K | | 300 MG | capsule by [...] po bid | | | HYDROCODON | [id number] | Tommy | | E-ACETAMIN | prn [...] 1 tablet | | | MELOXICAM | [id number] | Jovany | | MG TABS | [...] | | | | | | | INFLATED PAD BUFFER | + + + + + + [...] | | | | | Active | [facility] | | | | | | | INFLATED PAD BUFFER | +---------+ + + + + + | CODEINE | Itch | | Critical | No Longer | [facility] | | | | | | Active | Epifanio INFLATED PAD BUFFER | +---------+ + + + + + | SULFA | Break out in | | Critical | | [facility] | | | hives | | | | Epifanio INFLATED PAD BUFFER | +---------+ + + + + + Results +------+------+-------+------+-------+------+ + | Date | Name | Value | Unit | Range | Flag | Descriptio | | | | | | | | n | +------+------+-------+------+-------+------+ + + + | Office Visit: 1 week F/U [facility] | + + + +--------+---------+---+---+---+ + | [...] | smoker | | | | use [facility] | + +--------+---------+---+---+---+ + + + | Office Visit: URI | + + + +--------+---------+---+---+---+ + | [...] | smoker | | | | use [facility] | + +--------+---------+---+---+---+ + + + | Lab Report: C MONIQUE BY DNA AMP | + + + + + +---+ +---+ + | | ZZ-GE-UNK | Negative | | Negative | N | GE use | | | | | | | | only - for | | | | | | | | LinkLogic | | | | | | | | import | | | | | | | | when terms | | | | | | | | are not | | | | | | | | otherwise | | | | | | | | specified | + + + +---+ +---+ + + + | Lab Report: Comprehensive Metabolic Panel, Lipase, Blood | + + + + +--------+ + +---+ + | | LIPASE | 277 | U/L | 73-393 | N | lipase, | | | SERUM | | | | | serum | + + +--------+ + +---+ + | | SGPT (ALT) | 114 | U/L | 12-78 | H | alanine | | | | | | | | aminotrans | | | | | | | | ferase | | | | | | | | (SGPT), | | | | | | | | serum | + + +--------+ + +---+ + | | SGOT (AST) | 82 | U/L | 12-37 | H | aspartate | | | | | | | | aminotrans | | | | | | | | ferase | | | | | | | | (SGOT), | | | | | | | | serum | + + +--------+ + +---+ + | | ALK PHOS | 50 | U/L | 50-136 | N | alkaline | | | | | | | | phosphatas | | | | | | | | e, serum | + + +--------+ + +---+ + | | BILI TOTAL | 0.6 | mg/dL | 0.1-1.0 | N | bilirubin, | | | | | | | | serum, | | | | | | | | total | + + +--------+ + +---+ + | | A/G RATIO | 1.1 | | 0.8-1.8 | N | albumin/gl | | | | | | | | obulin | | | | | | | | ratio, | | | | | | | | serum | + + +--------+ + +---+ + | | GLOBULIN | 3.5 | g/dL | 2.2-4.0 | N | globulins, | | | TOT | | | | | serum, | | | | | | | | total | + + +--------+ + +---+ + | | ALBUMIN | 3.7 | g/dL | 3.4-5.0 | N | albumin, | | | | | | | | serum | + + +--------+ + +---+ + | | PROTEIN, | 7.2 | g/dL | 6.4-8.2 | N | protein, | | | TOT | | | | | total, | | | | | | | | serum | + + +--------+ + +---+ + | | CALCIUM | 8.9 | mg/dL | 8.5-10.1 | N | calcium, | | | | | | | | serum | + + +--------+ + +---+ + | | GFRC | >60 | mL/min/1.7 | 60- | N | Glomerular | | | | | 3m2 | | | | | | | | | | | Filtration | | | | | | | | Rate | | | | | | | | Calculatio | | | | | | | | n | + + +--------+ + +---+ + | | BUN/CREAT | 12.9 % | | 12.0-20.0 | N | urea | | | | | | | | nitrogen/c | | | | | | | | reatinine | | | | | | | | ratio, | | | | | | | | serum | + + +--------+ + +---+ + | | CREATININE | 0.70 | mg/dL | 0.60-1.20 | N | creatinine | | | | | | | | , serum | + + +--------+ + +---+ + | | BUN | 9 | mg/dL | 8-24 | N | urea | | | | | | | | nitrogen, | | | | | | | | blood | + + +--------+ + +---+ + | | GLUCOSE | 102 | mg/dL | 70-99 | H | blood | | | SER | | | | | glucose | + + +--------+ + +---+ + | | ANION GAP | 11 | mmol/L | 6-16 | N | anion gap, | | | | | | | | serum | + + +--------+ + +---+ + | | CO2 | 24 | mmol/L | 21-32 | N | carbon | | | | | | | | dioxide, | | | | | | | | venous | | | | | | | | blood | + + +--------+ + +---+ + | | CHLORIDE | 104 | mmol/L | 98-108 | N | chloride, | | | | | | | | serum | + + +--------+ + +---+ + | | POTASSIUM | 3.7 | mmol/L | 3.5-5.5 | N | potassium, | | | | | | | | serum | + + +--------+ + +---+ + | | SODIUM | 139 | mmol/L | 136-145 | N | sodium, | | | | | | | | serum | + + +--------+ + +---+ + + + | Lab Report: CBC with Auto Diff | + + + + + + + +---+ + | | ZZ-GE-UNK | 0.00 K/mm3 | | 0.00-0.02 | N | GE use | | | | | | | | only - for | | | | | | | | LinkLogic | | | | | | | | import | | | | | | | | when terms | | | | | | | | are not | | | | | | | | otherwise | | | | | | | | specified | + + + + + +---+ + | | ABSOLUTE | 0.01 | 10*3/uL | 0.00-0.23 | N | Absolute | | | BAS | | | | | Basophils | + + + + + +---+ + | | EOS ABSLT | 0.03 | 10*3/uL | 0.00-0.68 | N | Eosinophil | | | | | | | | Absolute | | | | | | | | Count | + + + + + +---+ + | | ABSOLUTE | 0.51 | 10*3/uL | 0.16-1.47 | N | Absolute | | | MON | | | | | Monocytes | + + + + + +---+ + | | LYMPHOCYTA | 1.30 | 10*3/uL | 0.84-5.20 | N | lymphocyte | | | BS | | | | | s, | | | | | | | | absolute | + + + + + +---+ + | | ANC | 3.33 | 10*3/mm3 | 1.96-9.15 | N | neutrophil | | | | | | | | count, | | | | | | | | blood | + + + + + +---+ + | | NRBCS/100W | 0.0 | % | 0.0-0.2 | N | nucleated | | | BC | | | | | red blood | | | | | | | | cells as | | | | | | | | percent of | | | | | | | | blood | | | | | | | | leukocytes | + + + + + +---+ + | | IMM GRANU | 0 | % | 0-1 | N | immature | | | % | | | | | granulocyt | | | | | | | | es, | | | | | | | | percentage | | | | | | | | of total | | | | | | | | cells, | | | | | | | | blood | + + + + + +---+ + | | BASOPHIL % | 0 | % | 0-2 | N | basophils | | | | | | | | as percent | | | | | | | | of blood | | | | | | | | leukocytes | + + + + + +---+ + | | EOSINOPHIL | 1 | % | 0-6 | N | eosinophil | | | % | | | | | s as | | | | | | | | percent of | | | | | | | | blood | | | | | | | | leukocytes | + + + + + +---+ + | | MONOCYTE % | 10 | % | 4-13 | N | monocytes | | | | | | | | as percent | | | | | | | | of blood | | | | | | | | leukocytes | + + + + + +---+ + | | LYMPHS % | 25 | % | 21-46 | N | lymphocyte | | | | | | | | s as | | | | | | | | percent of | | | | | | | | blood | | | | | | | | leukocytes | + + + + + +---+ + | | PMN % | 64 | % | 41-73 | N | neutrophil | | | | | | | | s as | | | | | | | | percent of | | | | | | | | blood | | | | | | | | leukocytes | + + + + + +---+ + | | MPV | 10.1 | fL | 9.1-12.4 | N | mean | | | | | | | | platelet | | | | | | | | volume | + + + + + +---+ + | | PLATELETS | 189 | 10*3/mm3 | 150-400 | N | platelet | | | | | | | | count | + + + + + +---+ + | | RDW | 14.3 | % | 11.7-14.2 | H | red blood | | | | | | | | cell | | | | | | | | distributi | | | | | | | | on width | + + + + + +---+ + | | RDW-SD | 45.4 | fL | 35.1-46.3 | N | red blood | | | | | | | | cell | | | | | | | | distributi | | | | | | | | on width, | | | | | | | | size | | | | | | | | density | + + + + + +---+ + | | MCHC RBC | 33.7 | g/dL | 31.5-36.5 | N | mean | | | | | | | | corpuscula | | | | | | | | r | | | | | | | | hemoglobin | | | | | | | | | | | | | | | | concentrat | | | | | | | | ion, RBC | + + + + + +---+ + | | MCH | 29.4 | pg | 26.0-34.0 | N | mean | | | | | | | | corpuscula | | | | | | | | r | | | | | | | | hemoglobin | | | | | | | | , RBC | + + + + + +---+ + | | MCV | 87 | fL | 80-100 | N | mean | | | | | | | | corpuscula | | | | | | | | r volume, | | | | | | | | RBC | + + + + + +---+ + | | HCT | 44.2 | % | 37.0-53.0 | N | hematocrit | | | | | | | | , blood | + + + + + +---+ + | | HGB | 14.9 | g/dL | 13.5-17.5 | N | hemoglobin | | | | | | | | , blood | + + + + + +---+ + | | RBC | 5.06 | 10*6/mm3 | 4.30-5.90 | N | erythrocyt | | | | | | | | e (RBC) | | | | | | | | count | + + + + + +---+ + | | WBC | 5.19 | 10*3/mm3 | 4.00-11.30 | N | leukocyte | | | | | | | | count, | | | | | | | | blood | + + + + + +---+ + + + | Lab Report: Comprehensive Metabolic Panel | + + + + +-------+ + +---+ + | | SGPT (ALT) | 130 | U/L | 12-78 | H | alanine | | | | | | | | aminotrans | | | | | | | | ferase | | | | | | | | (SGPT), | | | | | | | | serum | + + +-------+ + +---+ + | | SGOT (AST) | 103 | U/L | 12-37 | H | aspartate | | | | | | | | aminotrans | | | | | | | | ferase | | | | | | | | (SGOT), | | | | | | | | serum | + + +-------+ + +---+ + | | ALK PHOS | 59 | U/L | 50-136 | N | alkaline | | | | | | | | phosphatas | | | | | | | | e, serum | + + +-------+ + +---+ + | | BILI TOTAL | 0.3 | mg/dL | 0.1-1.0 | N | bilirubin, | | | | | | | | serum, | | | | | | | | total | + + +-------+ + +---+ + | | A/G RATIO | 0.9 | | 0.8-1.8 | N | albumin/gl | | | | | | | | obulin | | | | | | | | ratio, | | | | | | | | serum | + + +-------+ + +---+ + | | GLOBULIN | 4.1 | g/dL | 2.2-4.0 | H | globulins, | | | TOT | | | | | serum, | | | | | | | | total | + + +-------+ + +---+ + | | ALBUMIN | 3.8 | g/dL | 3.4-5.0 | N | albumin, | | | | | | | | serum | + + +-------+ + +---+ + | | PROTEIN, | 7.9 | g/dL | 6.4-8.2 | N | protein, | | | TOT | | | | | total, | | | | | | | | serum | + + +-------+ + +---+ + | | CALCIUM | 8.9 | mg/dL | 8.5-10.1 | N | calcium, | | | | | | | | serum | + + +-------+ + +---+ + | | GFRC | >60 | mL/min/1.7 | 60- | N | Glomerular | | | | | 3m2 | | | | | | | | | | | Filtration | | | | | | | | Rate | | | | | | | | Calculatio | | | | | | | | n | + + +-------+ + +---+ + | | BUN/CREAT | 7.3 % | | 12.0-20.0 | L | urea | | | | | | | | nitrogen/c | | | | | | | | reatinine | | | | | | | | ratio, | | | | | | | | serum | + + +-------+ + +---+ + | | CREATININE | 0.69 | mg/dL | 0.60-1.20 | N | creatinine | | | | | | | | , serum | + + +-------+ + +---+ + | | BUN | 5 | mg/dL | 8-24 | L | urea | | | | | | | | nitrogen, | | | | | | | | blood | + + +-------+ + +---+ + | | GLUCOSE | 112 | mg/dL | 70-99 | H | blood | | | SER | | | | | glucose | + + +-------+ + +---+ + | | ANION GAP | 9 | mmol/L | 6-16 | N | anion gap, | | | | | | | | serum | + + +-------+ + +---+ + | | CO2 | 26 | mmol/L | 21-32 | N | carbon | | | | | | | | dioxide, | | | | | | | | venous | | | | | | | | blood | + + +-------+ + +---+ + | | CHLORIDE | 102 | mmol/L | 98-108 | N | chloride, | | | | | | | | serum | + + +-------+ + +---+ + | | POTASSIUM | 3.5 | mmol/L | 3.5-5.5 | N | potassium, | | | | | | | | serum | + + +-------+ + +---+ + | | SODIUM | 137 | mmol/L | 136-145 | N | sodium, | | | | | | | | serum | + + +-------+ + +---+ + + + | Lab Report: CBC with Auto Diff | + + + + + + + +---+ + | | ZZ-GE-UNK | 0.00 K/mm3 | | 0.00-0.02 | N | GE use | | | | | | | | only - for | | | | | | | | LinkLogic | | | | | | | | import | | | | | | | | when terms | | | | | | | | are not | | | | | | | | otherwise | | | | | | | | specified | + + + + + +---+ + | | ABSOLUTE | 0.04 | 10*3/uL | 0.00-0.23 | N | Absolute | | | BAS | | | | | Basophils | + + + + + +---+ + | | EOS ABSLT | 0.06 | 10*3/uL | 0.00-0.68 | N | Eosinophil | | | | | | | | Absolute | | | | | | | | Count | + + + + + +---+ + | | ABSOLUTE | 0.66 | 10*3/uL | 0.16-1.47 | N | Absolute | | | MON | | | | | Monocytes | + + + + + +---+ + | | LYMPHOCYTA | 1.73 | 10*3/uL | 0.84-5.20 | N | lymphocyte | | | BS | | | | | s, | | | | | | | | absolute | + + + + + +---+ + | | ANC | 3.83 | 10*3/mm3 | 1.96-9.15 | N | neutrophil | | | | | | | | count, | | | | | | | | blood | + + + + + +---+ + | | NRBCS/100W | 0.0 | % | 0.0-0.2 | N | nucleated | | | BC | | | | | red blood | | | | | | | | cells as | | | | | | | | percent of | | | | | | | | blood | | | | | | | | leukocytes | + + + + + +---+ + | | IMM GRANU | 0 | % | 0-1 | N | immature | | | % | | | | | granulocyt | | | | | | | | es, | | | | | | | | percentage | | | | | | | | of total | | | | | | | | cells, | | | | | | | | blood | + + + + + +---+ + | | BASOPHIL % | 1 | % | 0-2 | N | basophils | | | | | | | | as percent | | | | | | | | of blood | | | | | | | | leukocytes | + + + + + +---+ + | | EOSINOPHIL | 1 | % | 0-6 | N | eosinophil | | | % | | | | | s as | | | | | | | | percent of | | | | | | | | blood | | | | | | | | leukocytes | + + + + + +---+ + | | MONOCYTE % | 10 | % | 4-13 | N | monocytes | | | | | | | | as percent | | | | | | | | of blood | | | | | | | | leukocytes | + + + + + +---+ + | | LYMPHS % | 27 | % | 21-46 | N | lymphocyte | | | | | | | | s as | | | | | | | | percent of | | | | | | | | blood | | | | | | | | leukocytes | + + + + + +---+ + | | PMN % | 61 | % | 41-73 | N | neutrophil | | | | | | | | s as | | | | | | | | percent of | | | | | | | | blood | | | | | | | | leukocytes | + + + + + +---+ + | | MPV | 10.1 | fL | 9.1-12.4 | N | mean | | | | | | | | platelet | | | | | | | | volume | + + + + + +---+ + | | PLATELETS | 273 | 10*3/mm3 | 150-400 | N | platelet | | | | | | | | count | + + + + + +---+ + | | RDW | 14.3 | % | 11.7-14.2 | H | red blood | | | | | | | | cell | | | | | | | | distributi | | | | | | | | on width | + + + + + +---+ + | | RDW-SD | 45.7 | fL | 35.1-46.3 | N | red blood | | | | | | | | cell | | | | | | | | distributi | | | | | | | | on width, | | | | | | | | size | | | | | | | | density | + + + + + +---+ + | | MCHC RBC | 33.5 | g/dL | 31.5-36.5 | N | mean | | | | | | | | corpuscula | | | | | | | | r | | | | | | | | hemoglobin | | | | | | | | | | | | | | | | concentrat | | | | | | | | ion, RBC | + + + + + +---+ + | | MCH | 29.3 | pg | 26.0-34.0 | N | mean | | | | | | | | corpuscula | | | | | | | | r | | | | | | | | hemoglobin | | | | | | | | , RBC | + + + + + +---+ + | | MCV | 88 | fL | 80-100 | N | mean | | | | | | | | corpuscula | | | | | | | | r volume, | | | | | | | | RBC | + + + + + +---+ + | | HCT | 45.7 | % | 37.0-53.0 | N | hematocrit | | | | | | | | , blood | + + + + + +---+ + | | HGB | 15.3 | g/dL | 13.5-17.5 | N | hemoglobin | | | | | | | | , blood | + + + + + +---+ + | | RBC | 5.22 | 10*6/mm3 | 4.30-5.90 | N | erythrocyt | | | | | | | | e (RBC) | | | | | | | | count | + + + + + +---+ + | | WBC | 6.34 | 10*3/mm3 | 4.00-11.30 | N | leukocyte | | | | | | | | count, | | | | | | | | blood | + + + + + +---+ + + + | Lab Report: Comprehensive Metabolic Panel, Lipase, Blood | + + + + +--------+ + +---+ + | | LIPASE | 286 | U/L | 73-393 | N | lipase, | | | SERUM | | | | | serum | + + +--------+ + +---+ + | | SGPT (ALT) | 89 | U/L | 12-78 | H | alanine | | | | | | | | aminotrans | | | | | | | | ferase | | | | | | | | (SGPT), | | | | | | | | serum | + + +--------+ + +---+ + | | SGOT (AST) | 63 | U/L | 12-37 | H | aspartate | | | | | | | | aminotrans | | | | | | | | ferase | | | | | | | | (SGOT), | | | | | | | | serum | + + +--------+ + +---+ + | | ALK PHOS | 61 | U/L | 50-136 | N | alkaline | | | | | | | | phosphatas | | | | | | | | e, serum | + + +--------+ + +---+ + | | BILI TOTAL | 0.4 | mg/dL | 0.1-1.0 | N | bilirubin, | | | | | | | | serum, | | | | | | | | total | + + +--------+ + +---+ + | | A/G RATIO | 1.0 | | 0.8-1.8 | N | albumin/gl | | | | | | | | obulin | | | | | | | | ratio, | | | | | | | | serum | + + +--------+ + +---+ + | | GLOBULIN | 4.0 | g/dL | 2.2-4.0 | N | globulins, | | | TOT | | | | | serum, | | | | | | | | total | + + +--------+ + +---+ + | | ALBUMIN | 3.8 | g/dL | 3.4-5.0 | N | albumin, | | | | | | | | serum | + + +--------+ + +---+ + | | PROTEIN, | 7.8 | g/dL | 6.4-8.2 | N | protein, | | | TOT | | | | | total, | | | | | | | | serum | + + +--------+ + +---+ + | | CALCIUM | 8.9 | mg/dL | 8.5-10.1 | N | calcium, | | | | | | | | serum | + + +--------+ + +---+ + | | GFRC | >60 | mL/min/1.7 | 60- | N | Glomerular | | | | | 3m2 | | | | | | | | | | | Filtration | | | | | | | | Rate | | | | | | | | Calculatio | | | | | | | | n | + + +--------+ + +---+ + | | BUN/CREAT | 11.1 % | | 12.0-20.0 | L | urea | | | | | | | | nitrogen/c | | | | | | | | reatinine | | | | | | | | ratio, | | | | | | | | serum | + + +--------+ + +---+ + | | CREATININE | 0.72 | mg/dL | 0.60-1.20 | N | creatinine | | | | | | | | , serum | + + +--------+ + +---+ + | | BUN | 8 | mg/dL | 8-24 | N | urea | | | | | | | | nitrogen, | | | | | | | | blood | + + +--------+ + +---+ + | | GLUCOSE | 98 | mg/dL | 70-99 | N | blood | | | SER | | | | | glucose | + + +--------+ + +---+ + | | ANION GAP | 10 | mmol/L | 6-16 | N | anion gap, | | | | | | | | serum | + + +--------+ + +---+ + | | CO2 | 26 | mmol/L | 21-32 | N | carbon | | | | | | | | dioxide, | | | | | | | | venous | | | | | | | | blood | + + +--------+ + +---+ + | | CHLORIDE | 102 | mmol/L | 98-108 | N | chloride, | | | | | | | | serum | + + +--------+ + +---+ + | | POTASSIUM | 3.8 | mmol/L | 3.5-5.5 | N | potassium, | | | | | | | | serum | + + +--------+ + +---+ + | | SODIUM | 138 | mmol/L | 136-145 | N | sodium, | | | | | | | | serum | + + +--------+ + +---+ + + + | Lab Report: CBC with Auto Diff | + + + + + + + +---+ + | | ZZ-GE-UNK | 0.00 K/mm3 | | 0.00-0.02 | N | GE use | | | | | | | | only - for | | | | | | | | LinkLogic | | | | | | | | import | | | | | | | | when terms | | | | | | | | are not | | | | | | | | otherwise | | | | | | | | specified | + + + + + +---+ + | | ABSOLUTE | 0.03 | 10*3/uL | 0.00-0.23 | N | Absolute | | | BAS | | | | | Basophils | + + + + + +---+ + | | EOS ABSLT | 0.12 | 10*3/uL | 0.00-0.68 | N | Eosinophil | | | | | | | | Absolute | | | | | | | | Count | + + + + + +---+ + | | ABSOLUTE | 0.42 | 10*3/uL | 0.16-1.47 | N | Absolute | | | MON | | | | | Monocytes | + + + + + +---+ + | | LYMPHOCYTA | 1.64 | 10*3/uL | 0.84-5.20 | N | lymphocyte | | | BS | | | | | s, | | | | | | | | absolute | + + + + + +---+ + | | ANC | 2.49 | 10*3/mm3 | 1.96-9.15 | N | neutrophil | | | | | | | | count, | | | | | | | | blood | + + + + + +---+ + | | NRBCS/100W | 0.0 | % | 0.0-0.2 | N | nucleated | | | BC | | | | | red blood | | | | | | | | cells as | | | | | | | | percent of | | | | | | | | blood | | | | | | | | leukocytes | + + + + + +---+ + | | IMM GRANU | 0 | % | 0-1 | N | immature | | | % | | | | | granulocyt | | | | | | | | es, | | | | | | | | percentage | | | | | | | | of total | | | | | | | | cells, | | | | | | | | blood | + + + + + +---+ + | | BASOPHIL % | 1 | % | 0-2 | N | basophils | | | | | | | | as percent | | | | | | | | of blood | | | | | | | | leukocytes | + + + + + +---+ + | | EOSINOPHIL | 3 | % | 0-6 | N | eosinophil | | | % | | | | | s as | | | | | | | | percent of | | | | | | | | blood | | | | | | | | leukocytes | + + + + + +---+ + | | MONOCYTE % | 9 | % | 4-13 | N | monocytes | | | | | | | | as percent | | | | | | | | of blood | | | | | | | | leukocytes | + + + + + +---+ + | | LYMPHS % | 35 | % | 21-46 | N | lymphocyte | | | | | | | | s as | | | | | | | | percent of | | | | | | | | blood | | | | | | | | leukocytes | + + + + + +---+ + | | PMN % | 53 | % | 41-73 | N | neutrophil | | | | | | | | s as | | | | | | | | percent of | | | | | | | | blood | | | | | | | | leukocytes | + + + + + +---+ + | | MPV | 9.4 | fL | 9.1-12.4 | N | mean | | | | | | | | platelet | | | | | | | | volume | + + + + + +---+ + | | PLATELETS | 271 | 10*3/mm3 | 150-400 | N | platelet | | | | | | | | count | + + + + + +---+ + | | RDW | 14.2 | % | 11.7-14.2 | N | red blood | | | | | | | | cell | | | | | | | | distributi | | | | | | | | on width | + + + + + +---+ + | | RDW-SD | 44.2 | fL | 35.1-46.3 | N | red blood | | | | | | | | cell | | | | | | | | distributi | | | | | | | | on width, | | | | | | | | size | | | | | | | | density | + + + + + +---+ + | | MCHC RBC | 34.4 | g/dL | 31.5-36.5 | N | mean | | | | | | | | corpuscula | | | | | | | | r | | | | | | | | hemoglobin | | | | | | | | | | | | | | | | concentrat | | | | | | | | ion, RBC | + + + + + +---+ + | | MCH | 29.4 | pg | 26.0-34.0 | N | mean | | | | | | | | corpuscula | | | | | | | | r | | | | | | | | hemoglobin | | | | | | | | , RBC | + + + + + +---+ + | | MCV | 86 | fL | 80-100 | N | mean | | | | | | | | corpuscula | | | | | | | | r volume, | | | | | | | | RBC | + + + + + +---+ + | | HCT | 45.1 | % | 37.0-53.0 | N | hematocrit | | | | | | | | , blood | + + + + + +---+ + | | HGB | 15.5 | g/dL | 13.5-17.5 | N | hemoglobin | | | | | | | | , blood | + + + + + +---+ + | | RBC | 5.27 | 10*6/mm3 | 4.30-5.90 | N | erythrocyt | | | | | | | | e (RBC) | | | | | | | | count | + + + + + +---+ + | | WBC | 4.71 | 10*3/mm3 | 4.00-11.30 | N | leukocyte | | | | | | | | count, | | | | | | | | blood | + + + + + +---+ + + + | Office Visit: pain management | + + + +--------+---------+---+---+---+ + | | SMOK | Former | | | | Tobacco | | | STATUS | smoker | | | | use [facility] | + +--------+---------+---+---+---+ + | | [...] +--------+---------+---+---+---+ + + + | Office Visit: [facility] for chronic pain | + + + + + +-------+---+---+ + | | TRICYCLIC | Positive | | | | tricyclic | | | UR | | | | | antidrepre | | | | | | | | ssants, | | | | | | | | urine | + + + +-------+---+---+ + | | THC URINE | Positive | ng/mL | | | cannabinoi | | | | | | | | d screen, | | | | | | | | urine | + + + +-------+---+---+ + | | PHENCYCLID | Negative | ng/mL | | | phencyclid | | | IN | | | | | ine | | | | | | | | screen, | | | | | | | | urine | + + + +-------+---+---+ + | | OXYCODONE | Negative | | | | Oxycodone | | | | | | | | urine | | | | | | | | screening | + + + +-------+---+---+ + | | OPIATES UR | Negative | | | | opiates, | | | | | | | | urine, | | | | | | | | semiquanti | | | | | | | | tative | + + + +-------+---+---+ + | | ECSTASYURI | Negative | | | | Ecstasy | | | NE | | | | | (MDMA) | | | | | | | | Screen, | | | | | | | | urine | + + + +-------+---+---+ + | | METHAMP | Negative | | | | methamphet | | | SCR | | | | | amine | | | | | | | | screen, | | | | | | | | urine | + + + +-------+---+---+ + | | METHADONEU | Negative | | | | Methadone | | | RN | | | | | screen, | | | | | | | | urine | + + + +-------+---+---+ + | | COCAINE UR | Negative | | | | cocaine, | | | | | | | | urine | + + + +-------+---+---+ + | | BUPRENO UR | Negative | | | | Buprenorph | | | | | | | | ine, Urine | + + + +-------+---+---+ + | | BENZODIAZ | Negative | | | | benzodiaze | | | UR | | | | | pine | | | | | | | | screen, | | | | | | | | urine | + + + +-------+---+---+ + | | BARBITURA | Negative | | | | barbiturat | | | UR | | | | | es screen, | | | | | | | | urine | + + + +-------+---+---+ + | | AMPHETAMI | Negative | | | | amphetamin | | | UR | | | | | e screen, | | | | | | | | urine | + + + +-------+---+---+ + + + | Rx Refill: eRx Request for CHANTIX 1MG TABS | + + + +--------+ +---+---+---+ + | | ESM_RR | [phone] | | | B | e-scripts | | | | 8`CHANTIX | | | | messenger | | | | 1MG | | | | refill | | | | TABS```30 | | | | request | | | | Unspecifie | | | | | | | | d`30`TAKE | | | | | | | | ONE TABLET | | | | | | | | BY MOUTH | | | | | | | | EVERY | | | | | | | | DAY``1`0`0 | | | | | | | | 09/07/2016` | | | | | | | | 08/05/2016 | | | | | | | | `[employer]- | | | | | | | | Talib*`5 | | | | | | | | [id number]` | | | | | | | | [id number] | | | | | | | | 6``CHANTIX | | | | | | | | 1MG TABS | | | | | | | | Quantity: | | | | | | | | 30 | | | | | | | | Unspecifie | | | | | | | | d | | | | | | | | Instructio | | | | | | | | ns: TAKE | | | | | | | | ONE TABLET | | | | | | | | BY MOUTH | | | | | | | | EVERY DAY | | | | | + +--------+ +---+---+---+ + + + | Office Visit: Hip Pain | + + + +---------+---------+---+---+---+ + | | DIET | yes | | | | Dietary | | | [employer] | | | | | management | | | | | | | | | | | | | | | | education, | | | | | | | | guidance, | | | | | | | | and | | | | | | | | counseling | | | | | | | | | | | | | | | | (procedure | | | | | | | | ) | + +---------+---------+---+---+---+ + | | MEDS | Done | [...] | | | | ) | + +---------+---------+---+---+---+ + | | SMOK | Former | | | | Tobacco | | | STATUS | smoker | | | | use [facility] | + +---------+---------+---+---+---+ + + + | Nurse Encounter: nurse only- [facility] | + + + + + +-------+---+---+ + | | TRICYCLIC | Negative | | | | tricyclic | | | UR | | | | | antidrepre | | | | | | | | ssants, | | | | | | | | urine | + + + +-------+---+---+ + | | THC URINE | Positive | ng/mL | | | cannabinoi | | | | | | | | d screen, | | | | | | | | urine | + + + +-------+---+---+ + | | PHENCYCLID | Negative | ng/mL | | | phencyclid | | | IN | | | | | ine | | | | | | | | screen, | | | | | | | | urine | + + + +-------+---+---+ + | | OXYCODONE | Negative | | | | Oxycodone | | | | | | | | urine | | | | | | | | screening | + + + +-------+---+---+ + | | OPIATES UR | Negative | | | | opiates, | | | | | | | | urine, | | | | | | | | semiquanti | | | | | | | | tative | + + + +-------+---+---+ + | | ECSTASYURI | Negative | | | | Ecstasy | | | NE | | | | | (MDMA) | | | | | | | | Screen, | | | | | | | | urine | + + + +-------+---+---+ + | | METHAMP | Negative | | | | methamphet | | | SCR | | | | | amine | | | | | | | | screen, | | | | | | | | urine | + + + +-------+---+---+ + | | METHADONEU | Negative | | | | Methadone | | | RN | | | | | screen, | | | | | | | | urine | + + + +-------+---+---+ + | | COCAINE UR | Negative | | | | cocaine, | | | | | | | | urine | + + + +-------+---+---+ + | | BUPRENO UR | Negative | | | | Buprenorph | | | | | | | | ine, Urine | + + + +-------+---+---+ + | | BENZODIAZ | Negative | | | | benzodiaze | | | UR | | | | | pine | | | | | | | | screen, | | | | | | | | urine | + + + +-------+---+---+ + | | BARBITURA | Negative | | | | barbiturat | | | UR | | | | | es screen, | | | | | | | | urine | + + + +-------+---+---+ + | | AMPHETAMI | Negative | | | | amphetamin | | | UR | | | | | e screen, | | | | | | | | urine | + + + +-------+---+---+ + + + | Office Visit: f/u Left knee and Hip pain | + + + +---------+---------+---+---+---+ + | | MEDS | Done | [...] | | | | ) | + +---------+---------+---+---+---+ + | | DIET | yes | | | | Dietary | | | [employer] | | | | | management | | | | | | | | | | | | | | | | education, | | | | | | | | guidance, | | | | | | | | and | | | | | | | | counseling | | | | | | | | | | | | | | | | (procedure | | | | | | | | ) | + +---------+---------+---+---+---+ + | | SMOK | Former | | | | Tobacco | | | STATUS | smoker | | | | use [facility] | + +---------+---------+---+---+---+ + + + | Lab Report: C-REACTIVE PROTEIN, EXT RANGE | + + + +-----+--------+-------+ +---+ + | | CRP | <0.290 | mg/dL | 0.000-0.30 | N | C-reactive | | | | | | 0 | | protein, | | | | | | | | serum | + +-----+--------+-------+ +---+ + + + | Lab Report: CBC with Auto Diff, Erythro Sed Rate, Clarisa | + + + + + + + +---+ + | | ESR | 6 | mm/h | 0-20 | N | erythrocyt | | | | | | | | e | | | | | | | | sedimentat | | | | | | | | ion rate | + + + + + +---+ + | | ZZ-GE-UNK | 0.00 K/mm3 | | 0.00-0.02 | N | GE use | | | | | | | | only - for | | | | | | | | LinkLogic | | | | | | | | import | | | | | | | | when terms | | | | | | | | are not | | | | | | | | otherwise | | | | | | | | specified | + + + + + +---+ + | | ABSOLUTE | 0.04 | 10*3/uL | 0.00-0.23 | N | Absolute | | | BAS | | | | | Basophils | + + + + + +---+ + | | EOS ABSLT | 0.10 | 10*3/uL | 0.00-0.68 | N | Eosinophil | | | | | | | | Absolute | | | | | | | | Count | + + + + + +---+ + | | ABSOLUTE | 0.52 | 10*3/uL | 0.16-1.47 | N | Absolute | | | MON | | | | | Monocytes | + + + + + +---+ + | | LYMPHOCYTA | 1.99 | 10*3/uL | 0.84-5.20 | N | lymphocyte | | | BS | | | | | s, | | | | | | | | absolute | + + + + + +---+ + | | ANC | 3.47 | 10*3/mm3 | 1.96-9.15 | N | neutrophil | | | | | | | | count, | | | | | | | | blood | + + + + + +---+ + | | NRBCS/100W | 0.0 | % | 0.0-0.2 | N | nucleated | | | BC | | | | | red blood | | | | | | | | cells as | | | | | | | | percent of | | | | | | | | blood | | | | | | | | leukocytes | + + + + + +---+ + | | IMM GRANU | 0 | % | 0-1 | N | immature | | | % | | | | | granulocyt | | | | | | | | es, | | | | | | | | percentage | | | | | | | | of total | | | | | | | | cells, | | | | | | | | blood | + + + + + +---+ + | | BASOPHIL % | 1 | % | 0-2 | N | basophils | | | | | | | | as percent | | | | | | | | of blood | | | | | | | | leukocytes | + + + + + +---+ + | | EOSINOPHIL | 2 | % | 0-6 | N | eosinophil | | | % | | | | | s as | | | | | | | | percent of | | | | | | | | blood | | | | | | | | leukocytes | + + + + + +---+ + | | MONOCYTE % | 9 | % | 4-13 | N | monocytes | | | | | | | | as percent | | | | | | | | of blood | | | | | | | | leukocytes | + + + + + +---+ + | | LYMPHS % | 32 | % | 21-46 | N | lymphocyte | | | | | | | | s as | | | | | | | | percent of | | | | | | | | blood | | | | | | | | leukocytes | + + + + + +---+ + | | PMN % | 57 | % | 41-73 | N | neutrophil | | | | | | | | s as | | | | | | | | percent of | | | | | | | | blood | | | | | | | | leukocytes | + + + + + +---+ + | | MPV | 10.4 | fL | 9.1-12.4 | N | mean | | | | | | | | platelet | | | | | | | | volume | + + + + + +---+ + | | PLATELETS | 310 | 10*3/mm3 | 150-400 | N | platelet | | | | | | | | count | + + + + + +---+ + | | RDW | 15.0 | % | 11.7-14.2 | H | red blood | | | | | | | | cell | | | | | | | | distributi | | | | | | | | on width | + + + + + +---+ + | | RDW-SD | 47.8 | fL | 35.1-46.3 | H | red blood | | | | | | | | cell | | | | | | | | distributi | | | | | | | | on width, | | | | | | | | size | | | | | | | | density | + + + + + +---+ + | | MCHC RBC | 32.0 | g/dL | 31.5-36.5 | N | mean | | | | | | | | corpuscula | | | | | | | | r | | | | | | | | hemoglobin | | | | | | | | | | | | | | | | concentrat | | | | | | | | ion, RBC | + + + + + +---+ + | | MCH | 28.0 | pg | 26.0-34.0 | N | mean | | | | | | | | corpuscula | | | | | | | | r | | | | | | | | hemoglobin | | | | | | | | , RBC | + + + + + +---+ + | | MCV | 87 | fL | 80-100 | N | mean | | | | | | | | corpuscula | | | | | | | | r volume, | | | | | | | | RBC | + + + + + +---+ + | | HCT | 43.1 | % | 37.0-53.0 | N | hematocrit | | | | | | | | , blood | + + + + + +---+ + | | HGB | 13.8 | g/dL | 13.5-17.5 | N | hemoglobin | | | | | | | | , blood | + + + + + +---+ + | | RBC | 4.93 | 10*6/mm3 | 4.30-5.90 | N | erythrocyt | | | | | | | | e (RBC) | | | | | | | | count | + + + + + +---+ + | | WBC | 6.14 | 10*3/mm3 | 4.00-11.30 | N | leukocyte | | | | | | | | count, | | | | | | | | blood | + + + + + +---+ + + + | Office Visit: Ortho Post op L MELONY 06/14/16 | + + + +--------+---------+---+---+---+ + | [...] | smoker | | | | use [facility] | + +--------+---------+---+---+---+ + + + | Office Visit: f/u Total hip Arthroplasty-lft | + + + +--------+---------+---+---+---+ + | [...] | smoker | | | | use [facility] | + +--------+---------+---+---+---+ + + + | Office Visit: Ortho Post op L MELONY 06/14/16 | + + + +--------+---------+---+---+---+ + | [...] | smoker | | | | use [facility] | + +--------+---------+---+---+---+ + + + | Lab Report: CBC with Auto Diff | + + + + + + + +---+ + | | ZZ-GE-UNK | 0.00 K/mm3 | | 0.00-0.02 | N | GE use | | | | | | | | only - for | | | | | | | | LinkLogic | | | | | | | | import | | | | | | | | when terms | | | | | | | | are not | | | | | | | | otherwise | | | | | | | | specified | + + + + + +---+ + | | ABSOLUTE | 0.03 | 10*3/uL | 0.00-0.23 | N | Absolute | | | BAS | | | | | Basophils | + + + + + +---+ + | | EOS ABSLT | 0.18 | 10*3/uL | 0.00-0.68 | N | Eosinophil | | | | | | | | Absolute | | | | | | | | Count | + + + + + +---+ + | | ABSOLUTE | 0.56 | 10*3/uL | 0.16-1.47 | N | Absolute | | | MON | | | | | Monocytes | + + + + + +---+ + | | LYMPHOCYTA | 2.22 | 10*3/uL | 0.84-5.20 | N | lymphocyte | | | BS | | | | | s, | | | | | | | | absolute | + + + + + +---+ + | | ANC | 3.56 | 10*3/mm3 | 1.96-9.15 | N | neutrophil | | | | | | | | count, | | | | | | | | blood | + + + + + +---+ + | | NRBCS/100W | 0.0 | % | 0.0-0.2 | N | nucleated | | | BC | | | | | red blood | | | | | | | | cells as | | | | | | | | percent of | | | | | | | | blood | | | | | | | | leukocytes | + + + + + +---+ + | | IMM GRANU | 0 | % | 0-1 | N | immature | | | % | | | | | granulocyt | | | | | | | | es, | | | | | | | | percentage | | | | | | | | of total | | | | | | | | cells, | | | | | | | | blood | + + + + + +---+ + | | BASOPHIL % | 1 | % | 0-2 | N | basophils | | | | | | | | as percent | | | | | | | | of blood | | | | | | | | leukocytes | + + + + + +---+ + | | EOSINOPHIL | 3 | % | 0-6 | N | eosinophil | | | % | | | | | s as | | | | | | | | percent of | | | | | | | | blood | | | | | | | | leukocytes | + + + + + +---+ + | | MONOCYTE % | 9 | % | 4-13 | N | monocytes | | | | | | | | as percent | | | | | | | | of blood | | | | | | | | leukocytes | + + + + + +---+ + | | LYMPHS % | 34 | % | 21-46 | N | lymphocyte | | | | | | | | s as | | | | | | | | percent of | | | | | | | | blood | | | | | | | | leukocytes | + + + + + +---+ + | | PMN % | 54 | % | 41-73 | N | neutrophil | | | | | | | | s as | | | | | | | | percent of | | | | | | | | blood | | | | | | | | leukocytes | + + + + + +---+ + | | MPV | 9.3 | fL | 9.1-12.4 | N | mean | | | | | | | | platelet | | | | | | | | volume | + + + + + +---+ + | | PLATELETS | 314 | 10*3/mm3 | 150-400 | N | platelet | | | | | | | | count | + + + + + +---+ + | | RDW | 13.5 | % | 11.7-14.2 | N | red blood | | | | | | | | cell | | | | | | | | distributi | | | | | | | | on width | + + + + + +---+ + | | RDW-SD | 44.2 | fL | 35.1-46.3 | N | red blood | | | | | | | | cell | | | | | | | | distributi | | | | | | | | on width, | | | | | | | | size | | | | | | | | density | + + + + + +---+ + | | MCHC RBC | 32.7 | g/dL | 31.5-36.5 | N | mean | | | | | | | | corpuscula | | | | | | | | r | | | | | | | | hemoglobin | | | | | | | | | | | | | | | | concentrat | | | | | | | | ion, RBC | + + + + + +---+ + | | MCH | 29.1 | pg | 26.0-34.0 | N | mean | | | | | | | | corpuscula | | | | | | | | r | | | | | | | | hemoglobin | | | | | | | | , RBC | + + + + + +---+ + | | MCV | 89 | fL | 80-100 | N | mean | | | | | | | | corpuscula | | | | | | | | r volume, | | | | | | | | RBC | + + + + + +---+ + | | HCT | 34.3 | % | 37.0-53.0 | L | hematocrit | | | | | | | | , blood | + + + + + +---+ + | | HGB | 11.2 | g/dL | 13.5-17.5 | L | hemoglobin | | | | | | | | , blood | + + + + + +---+ + | | RBC | 3.85 | 10*6/mm3 | 4.30-5.90 | L | erythrocyt | | | | | | | | e (RBC) | | | | | | | | count | + + + + + +---+ + | | WBC | 6.57 | 10*3/mm3 | 4.00-11.30 | N | leukocyte | | | | | | | | count, | | | | | | | | blood | + + + + + +---+ + + + | Long-Term Facility: Nursing Facility Care / Discharge anticipated | + + + +--------+------+---+---+---+ + | | MEDS | Done | [...] | | | | ) | + +--------+------+---+---+---+ + + + | Office Visit: hip surgery f/umikala | + + + + + +---+---+---+ + | | PNEUPED#1 | 06/17/2016 | | | | Pneumococc | | | | | | | | al | | | | | | | | vaccinatio | | | | | | | | n | | | | | | | | (procedure | | | | | | | | ) | + + + +---+---+---+ + | | MEDS | Done | [...] | | | | ) | + + + +---+---+---+ + | | SMOK | Former | | | | Tobacco | | | STATUS | smoker | | | | use [facility] | + + + +---+---+---+ + + + | Lab Report: Basic Metabolic Panel | + + + + +--------+ + +---+ + | | CALCIUM | 8.9 | mg/dL | 8.5-10.1 | N | calcium, | | | | | | | | serum | + + +--------+ + +---+ + | | GFRC | >60 | mL/min/1.7 | 60- | N | Glomerular | | | | | 3m2 | | | | | | | | | | | Filtration | | | | | | | | Rate | | | | | | | | Calculatio | | | | | | | | n | + + +--------+ + +---+ + | | BUN/CREAT | 13.3 % | | 12.0-20.0 | N | urea | | | | | | | | nitrogen/c | | | | | | | | reatinine | | | | | | | | ratio, | | | | | | | | serum | + + +--------+ + +---+ + | | CREATININE | 0.75 | mg/dL | 0.60-1.20 | N | creatinine | | | | | | | | , serum | + + +--------+ + +---+ + | | BUN | 10 | mg/dL | 8-24 | N | urea | | | | | | | | nitrogen, | | | | | | | | blood | + + +--------+ + +---+ + | | GLUCOSE | 98 | mg/dL | 70-99 | N | blood | | | SER | | | | | glucose | + + +--------+ + +---+ + | | ANION GAP | 7 | mmol/L | 6-16 | N | anion gap, | | | | | | | | serum | + + +--------+ + +---+ + | | CO2 | 29 | mmol/L | 21-32 | N | carbon | | | | | | | | dioxide, | | | | | | | | venous | | | | | | | | blood | + + +--------+ + +---+ + | | CHLORIDE | 101 | mmol/L | 98-108 | N | chloride, | | | | | | | | serum | + + +--------+ + +---+ + | | POTASSIUM | 3.9 | mmol/L | 3.5-5.5 | N | potassium, | | | | | | | | serum | + + +--------+ + +---+ + | | SODIUM | 137 | mmol/L | 136-145 | N | sodium, | | | | | | | | serum | + + +--------+ + +---+ + + + | Lab Report: CBC without Diff (Hemogram) | + + + + + + + +---+ + | | ZZ-GE-UNK | 0.00 K/mm3 | | 0.00-0.02 | N | GE use | | | | | | | | only - for | | | | | | | | LinkLogic | | | | | | | | import | | | | | | | | when terms | | | | | | | | are not | | | | | | | | otherwise | | | | | | | | specified | + + + + + +---+ + | | NRBCS/100W | 0.0 | % | 0.0-0.2 | N | nucleated | | | BC | | | | | red blood | | | | | | | | cells as | | | | | | | | percent of | | | | | | | | blood | | | | | | | | leukocytes | + + + + + +---+ + | | MPV | 9.4 | fL | 9.1-12.4 | N | mean | | | | | | | | platelet | | | | | | | | volume | + + + + + +---+ + | | PLATELETS | 293 | 10*3/mm3 | 150-400 | N | platelet | | | | | | | | count | + + + + + +---+ + | | RDW | 13.6 | % | 11.7-14.2 | N | red blood | | | | | | | | cell | | | | | | | | distributi | | | | | | | | on width | + + + + + +---+ + | | RDW-SD | 44.9 | fL | 35.1-46.3 | N | red blood | | | | | | | | cell | | | | | | | | distributi | | | | | | | | on width, | | | | | | | | size | | | | | | | | density | + + + + + +---+ + | | MCHC RBC | 32.5 | g/dL | 31.5-36.5 | N | mean | | | | | | | | corpuscula | | | | | | | | r | | | | | | | | hemoglobin | | | | | | | | | | | | | | | | concentrat | | | | | | | | ion, RBC | + + + + + +---+ + | | MCH | 29.4 | pg | 26.0-34.0 | N | mean | | | | | | | | corpuscula | | | | | | | | r | | | | | | | | hemoglobin | | | | | | | | , RBC | + + + + + +---+ + | | MCV | 90 | fL | 80-100 | N | mean | | | | | | | | corpuscula | | | | | | | | r volume, | | | | | | | | RBC | + + + + + +---+ + | | HCT | 32.6 | % | 37.0-53.0 | L | hematocrit | | | | | | | | , blood | + + + + + +---+ + | | HGB | 10.6 | g/dL | 13.5-17.5 | L | hemoglobin | | | | | | | | , blood | + + + + + +---+ + | | RBC | 3.61 | 10*6/mm3 | 4.30-5.90 | L | erythrocyt | | | | | | | | e (RBC) | | | | | | | | count | + + + + + +---+ + | | WBC | 5.63 | 10*3/mm3 | 4.00-11.30 | N | leukocyte | | | | | | | | count, | | | | | | | | blood | + + + + + +---+ + + + | Long-Term Facility: Nursing Facility Care / Initial Encounter | + + + +--------+---------+---+---+---+ + | [...] | smoker | | | | use [facility] | + +--------+---------+---+---+---+ + + + | Lab Report: Prothrombin Time | + + + + +------+---+ +---+ + | | INR | 1.22 | | | N | internatio | | | | | | | | nal | | | | | | | | normalized | | | | | | | | ratio | | | | | | | | (INR) | + + +------+---+ +---+ + | | PT PATIENT | 12.8 | s | 9.7-11.5 | H | prothrombi | | | | | | | | n time | | | | | | | | (patient) | + + +------+---+ +---+ + | | INR | 1.11 | | | N | internatio | | | | | | | | nal | | | | | | | | normalized | | | | | | | | ratio | | | | | | | | (INR) | + + +------+---+ +---+ + | | PT PATIENT | 11.6 | s | 9.7-11.5 | H | prothrombi | | | | | | | | n time | | | | | | | | (patient) | + + +------+---+ +---+ + + + | Lab Report: CBC with Auto Diff | + + + + + + + +---+ + | | ZZ-GE-UNK | 0.00 K/mm3 | | 0.00-0.02 | N | GE use | | | | | | | | only - for | | | | | | | | LinkLogic | | | | | | | | import | | | | | | | | when terms | | | | | | | | are not | | | | | | | | otherwise | | | | | | | | specified | + + + + + +---+ + | | ABSOLUTE | 0.01 | 10*3/uL | 0.00-0.23 | N | Absolute | | | BAS | | | | | Basophils | + + + + + +---+ + | | EOS ABSLT | 0.02 | 10*3/uL | 0.00-0.68 | N | Eosinophil | | | | | | | | Absolute | | | | | | | | Count | + + + + + +---+ + | | ABSOLUTE | 0.86 | 10*3/uL | 0.16-1.47 | N | Absolute | | | MON | | | | | Monocytes | + + + + + +---+ + | | LYMPHOCYTA | 1.22 | 10*3/uL | 0.84-5.20 | N | lymphocyte | | | BS | | | | | s, | | | | | | | | absolute | + + + + + +---+ + | | ANC | 8.27 | 10*3/mm3 | 1.96-9.15 | N | neutrophil | | | | | | | | count, | | | | | | | | blood | + + + + + +---+ + | | NRBCS/100W | 0.0 | % | 0.0-0.2 | N | nucleated | | | BC | | | | | red blood | | | | | | | | cells as | | | | | | | | percent of | | | | | | | | blood | | | | | | | | leukocytes | + + + + + +---+ + | | IMM GRANU | 0 | % | 0-1 | N | immature | | | % | | | | | granulocyt | | | | | | | | es, | | | | | | | | percentage | | | | | | | | of total | | | | | | | | cells, | | | | | | | | blood | + + + + + +---+ + | | BASOPHIL % | 0 | % | 0-2 | N | basophils | | | | | | | | as percent | | | | | | | | of blood | | | | | | | | leukocytes | + + + + + +---+ + | | EOSINOPHIL | 0 | % | 0-6 | N | eosinophil | | | % | | | | | s as | | | | | | | | percent of | | | | | | | | blood | | | | | | | | leukocytes | + + + + + +---+ + | | MONOCYTE % | 8 | % | 4-13 | N | monocytes | | | | | | | | as percent | | | | | | | | of blood | | | | | | | | leukocytes | + + + + + +---+ + | | LYMPHS % | 12 | % | 21-46 | L | lymphocyte | | | | | | | | s as | | | | | | | | percent of | | | | | | | | blood | | | | | | | | leukocytes | + + + + + +---+ + | | PMN % | 80 | % | 41-73 | H | neutrophil | | | | | | | | s as | | | | | | | | percent of | | | | | | | | blood | | | | | | | | leukocytes | + + + + + +---+ + | | MPV | 10.1 | fL | 9.1-12.4 | N | mean | | | | | | | | platelet | | | | | | | | volume | + + + + + +---+ + | | PLATELETS | 259 | 10*3/mm3 | 150-400 | N | platelet | | | | | | | | count | + + + + + +---+ + | | RDW | 13.8 | % | 11.7-14.2 | N | red blood | | | | | | | | cell | | | | | | | | distributi | | | | | | | | on width | + + + + + +---+ + | | RDW-SD | 45.1 | fL | 35.1-46.3 | N | red blood | | | | | | | | cell | | | | | | | | distributi | | | | | | | | on width, | | | | | | | | size | | | | | | | | density | + + + + + +---+ + | | MCHC RBC | 33.2 | g/dL | 31.5-36.5 | N | mean | | | | | | | | corpuscula | | | | | | | | r | | | | | | | | hemoglobin | | | | | | | | | | | | | | | | concentrat | | | | | | | | ion, RBC | + + + + + +---+ + | | MCH | 29.6 | pg | 26.0-34.0 | N | mean | | | | | | | | corpuscula | | | | | | | | r | | | | | | | | hemoglobin | | | | | | | | , RBC | + + + + + +---+ + | | MCV | 89 | fL | 80-100 | N | mean | | | | | | | | corpuscula | | | | | | | | r volume, | | | | | | | | RBC | + + + + + +---+ + | | HCT | 34.0 | % | 37.0-53.0 | L | hematocrit | | | | | | | | , blood | + + + + + +---+ + | | HGB | 11.3 | g/dL | 13.5-17.5 | L | hemoglobin | | | | | | | | , blood | + + + + + +---+ + | | RBC | 3.82 | 10*6/mm3 | 4.30-5.90 | L | erythrocyt | | | | | | | | e (RBC) | | | | | | | | count | + + + + + +---+ + | | WBC | 10.40 | 10*3/mm3 | 4.00-11.30 | N | leukocyte | | | | | | | | count, | | | | | | | | blood | + + + + + +---+ + + + | Lab Report: Basic Metabolic Panel | + + + + +--------+ + +---+ + | | CALCIUM | 8.7 | mg/dL | 8.5-10.1 | N | calcium, | | | | | | | | serum | + + +--------+ + +---+ + | | GFRC | >60 | mL/min/1.7 | 60- | N | Glomerular | | | | | 3m2 | | | | | | | | | | | Filtration | | | | | | | | Rate | | | | | | | | Calculatio | | | | | | | | n | + + +--------+ + +---+ + | | BUN/CREAT | 23.1 % | | 12.0-20.0 | H | urea | | | | | | | | nitrogen/c | | | | | | | | reatinine | | | | | | | | ratio, | | | | | | | | serum | + + +--------+ + +---+ + | | CREATININE | 0.69 | mg/dL | 0.60-1.20 | N | creatinine | | | | | | | | , serum | + + +--------+ + +---+ + | | BUN | 16 | mg/dL | 8-24 | N | urea | | | | | | | | nitrogen, | | | | | | | | blood | + + +--------+ + +---+ + | | GLUCOSE | 141 | mg/dL | 70-99 | H | blood | | | SER | | | | | glucose | + + +--------+ + +---+ + | | ANION GAP | 8 | mmol/L | 6-16 | N | anion gap, | | | | | | | | serum | + + +--------+ + +---+ + | | CO2 | 27 | mmol/L | 21-32 | N | carbon | | | | | | | | dioxide, | | | | | | | | venous | | | | | | | | blood | + + +--------+ + +---+ + | | CHLORIDE | 99 | mmol/L | 98-108 | N | chloride, | | | | | | | | serum | + + +--------+ + +---+ + | | POTASSIUM | 4.2 | mmol/L | 3.5-5.5 | N | potassium, | | | | | | | | serum | + + +--------+ + +---+ + | | SODIUM | 134 | mmol/L | 136-145 | L | sodium, | | | | | | | | serum | + + +--------+ + +---+ + + + | Office Visit: Ortho Bob Govea 06/14/16 | + + + +--------+---------+---+---+---+ + | [...] | smoker | | | | use [facility] | + +--------+---------+---+---+---+ + + + | Lab Report: Basic Metabolic Panel | + + + + +--------+ + +---+ + | | CALCIUM | 9.4 | mg/dL | 8.5-10.1 | N | calcium, | | | | | | | | serum | + + +--------+ + +---+ + | | GFRC | >60 | mL/min/1.7 | 60- | N | Glomerular | | | | | 3m2 | | | | | | | | | | | Filtration | | | | | | | | Rate | | | | | | | | Calculatio | | | | | | | | n | + + +--------+ + +---+ + | | BUN/CREAT | 17.7 % | | 12.0-20.0 | N | urea | | | | | | | | nitrogen/c | | | | | | | | reatinine | | | | | | | | ratio, | | | | | | | | serum | + + +--------+ + +---+ + | | CREATININE | 0.79 | mg/dL | 0.60-1.20 | N | creatinine | | | | | | | | , serum | + + +--------+ + +---+ + | | BUN | 14 | mg/dL | 8-24 | N | urea | | | | | | | | nitrogen, | | | | | | | | blood | + + +--------+ + +---+ + | | GLUCOSE | 91 | mg/dL | 70-99 | N | blood | | | SER | | | | | glucose | + + +--------+ + +---+ + | | ANION GAP | 9 | mmol/L | 6-16 | N | anion gap, | | | | | | | | serum | + + +--------+ + +---+ + | | CO2 | 27 | mmol/L | 21-32 | N | carbon | | | | | | | | dioxide, | | | | | | | | venous | | | | | | | | blood | + + +--------+ + +---+ + | | CHLORIDE | 100 | mmol/L | 98-108 | N | chloride, | | | | | | | | serum | + + +--------+ + +---+ + | | POTASSIUM | 3.7 | mmol/L | 3.5-5.5 | N | potassium, | | | | | | | | serum | + + +--------+ + +---+ + | | SODIUM | 136 | mmol/L | 136-145 | N | sodium, | | | | | | | | serum | + + +--------+ + +---+ + + + | Lab Report: CBC with Auto Diff | + + + + + + + +---+ + | | ZZ-GE-UNK | 0.00 K/mm3 | | 0.00-0.02 | N | GE use | | | | | | | | only - for | | | | | | | | [employer] | | | | | | | | import | | | | | | | | when terms | | | | | | | | are not | | | | | | | | otherwise | | | | | | | | specified | + + + + + +---+ + | | ABSOLUTE | 0.04 | 10*3/uL | 0.00-0.23 | N | Absolute | | | BAS | | | | | Basophils | + + + + + +---+ + | | EOS ABSLT | 0.15 | 10*3/uL | 0.00-0.68 | N | Eosinophil | | | | | | | | Absolute | | | | | | | | Count | + + + + + +---+ + | | ABSOLUTE | 0.78 | 10*3/uL | 0.16-1.47 | N | Absolute | | | MON | | | | | Monocytes | + + + + + +---+ + | | LYMPHOCYTA | 2.01 | 10*3/uL | 0.84-5.20 | N | lymphocyte | | | BS | | | | | s, | | | | | | | | absolute | + + + + + +---+ + | | ANC | 4.67 | 10*3/mm3 | 1.96-9.15 | N | neutrophil | | | | | | | | count, | | | | | | | | blood | + + + + + +---+ + | | NRBCS/100W | 0.0 | % | 0.0-0.2 | N | nucleated | | | BC | | | | | red blood | | | | | | | | cells as | | | | | | | | percent of | | | | | | | | blood | | | | | | | | leukocytes | + + + + + +---+ + | | IMM GRANU | 0 | % | 0-1 | N | immature | | | % | | | | | granulocyt | | | | | | | | es, | | | | | | | | percentage | | | | | | | | of total | | | | | | | | cells, | | | | | | | | blood | + + + + + +---+ + | | BASOPHIL % | 1 | % | 0-2 | N | basophils | | | | | | | | as percent | | | | | | | | of blood | | | | | | | | leukocytes | + + + + + +---+ + | | EOSINOPHIL | 2 | % | 0-6 | N | eosinophil | | | % | | | | | s as | | | | | | | | percent of | | | | | | | | blood | | | | | | | | leukocytes | + + + + + +---+ + | | MONOCYTE % | 10 | % | 4-13 | N | monocytes | | | | | | | | as percent | | | | | | | | of blood | | | | | | | | leukocytes | + + + + + +---+ + | | LYMPHS % | 26 | % | 21-46 | N | lymphocyte | | | | | | | | s as | | | | | | | | percent of | | | | | | | | blood | | | | | | | | leukocytes | + + + + + +---+ + | | PMN % | 61 | % | 41-73 | N | neutrophil | | | | | | | | s as | | | | | | | | percent of | | | | | | | | blood | | | | | | | | leukocytes | + + + + + +---+ + | | MPV | 10.2 | fL | 9.1-12.4 | N | mean | | | | | | | | platelet | | | | | | | | volume | + + + + + +---+ + | | PLATELETS | 308 | 10*3/mm3 | 150-400 | N | platelet | | | | | | | | count | + + + + + +---+ + | | RDW | 13.7 | % | 11.7-14.2 | N | red blood | | | | | | | | cell | | | | | | | | distributi | | | | | | | | on width | + + + + + +---+ + | | RDW-SD | 44.5 | fL | 35.1-46.3 | N | red blood | | | | | | | | cell | | | | | | | | distributi | | | | | | | | on width, | | | | | | | | size | | | | | | | | density | + + + + + +---+ + | | MCHC RBC | 33.8 | g/dL | 31.5-36.5 | N | mean | | | | | | | | corpuscula | | | | | | | | r | | | | | | | | hemoglobin | | | | | | | | | | | | | | | | concentrat | | | | | | | | ion, RBC | + + + + + +---+ + | | MCH | 30.2 | pg | 26.0-34.0 | N | mean | | | | | | | | corpuscula | | | | | | | | r | | | | | | | | hemoglobin | | | | | | | | , RBC | + + + + + +---+ + | | MCV | 89 | fL | 80-100 | N | mean | | | | | | | | corpuscula | | | | | | | | r volume, | | | | | | | | RBC | + + + + + +---+ + | | HCT | 45.2 | % | 37.0-53.0 | N | hematocrit | | | | | | | | , blood | + + + + + +---+ + | | HGB | 15.3 | g/dL | 13.5-17.5 | N | hemoglobin | | | | | | | | , blood | + + + + + +---+ + | | RBC | 5.07 | 10*6/mm3 | 4.30-5.90 | N | erythrocyt | | | | | | | | e (RBC) | | | | | | | | count | + + + + + +---+ + | | WBC | 7.68 | 10*3/mm3 | 4.00-11.30 | N | leukocyte | | | | | | | | count, | | | | | | | | blood | + + + + + +---+ + + + | Office Visit: [place]: cough | + + + +--------+---------+---+---+---+ + | | SMOK | Former | | | | Tobacco | | | STATUS | smoker | | | | use CPHS | + +--------+---------+---+---+---+ + | | [...] | + +--------+---------+---+---+---+ + + + | Lab Report: Cotinine | + + + + + +---+-----+---+ + | | ZZ-GE-UNK | Negative | | NEG | N | GE use | | | | | | | | only - for | | | | | | | | LinkLogic | | | | | | | | import | | | | | | | | when terms | | | | | | | | are not | | | | | | | | otherwise | | | | | | | | specified | + + + +---+-----+---+ + + + | Lab Report: Glyco Hemoglobin, A1C | + + + +--------+-----+---+---------+---+ + | | HGBA1C | 5.6 | % | 4.6-6.2 | N | Hemoglobin | | | | | | | | | | | | | | | | A1c/Hemogl | | | | | | | | obin.total | | | | | | | | in Blood | + +--------+-----+---+---------+---+ + + + | Office Visit: [facility] 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- lft hip pain | + + + + + +-------+---+---+ + | | TRICYCLIC | Negative | | | | tricyclic | | | UR | | | | | antidrepre | | | | | | | | ssants, | | | | | | | | urine | + + + +-------+---+---+ + | | THC URINE | Positive | ng/mL | | | cannabinoi | | | | | | | | d screen, | | | | | | | | urine | + + + +-------+---+---+ + | | PHENCYCLID | Negative | ng/mL | | | phencyclid | | | IN | | | | | ine | | | | | | | | screen, | | | | | | | | urine | + + + +-------+---+---+ + | | OXYCODONE | Negative | | | | Oxycodone | | | | | | | | urine | | | | | | | | screening | + + + +-------+---+---+ + | | OPIATES UR | Negative | | | | opiates, | | | | | | | | urine, | | | | | | | | semiquanti | | | | | | | | tative | + + + +-------+---+---+ + | | ECSTASYURI | Negative | | | | Ecstasy | | | NE | | | | | (MDMA) | | | | | | | | Screen, | | | | | | | | urine | + + + +-------+---+---+ + | | METHAMP | Negative | | | | methamphet | | | SCR | | | | | amine | | | | | | | | screen, | | | | | | | | urine | + + + +-------+---+---+ + | | METHADONEU | Negative | | | | Methadone | | | RN | | | | | screen, | | | | | | | | urine | + + + +-------+---+---+ + | | COCAINE UR | Negative | | | | cocaine, | | | | | | | | urine | + + + +-------+---+---+ + | | BENZODIAZ | Negative | | | | benzodiaze | | | UR | | | | | pine | | | | | | | | screen, | | | | | | | | urine | + + + +-------+---+---+ + | | BARBITURA | Negative | | | | barbiturat | | | UR | | | | | es screen, | | | | | | | | urine | + + + +-------+---+---+ + | | AMPHETAMI | Negative | | | | amphetamin | | | UR | | | | | e screen, | | | | | | | | urine | + + + +-------+---+---+ + | | DIET | yes | | | | Dietary | | | [employer] | | | | | management | | | | | | | | | | | | | | | | education, | | | | | | | | guidance, | | | | | | | | and | | | | | | | | counseling | | | | | | | | | | | | | | | | (procedure | | | | | | | | ) | + + + +-------+---+---+ + | | DEPSCREEN | negative | | | | Adolescent | | | | | | | | | | | | | | | | depression | | | | | | | | screening | | | | | | | | | | | | | | | | assessment | + + + +-------+---+---+ + | | PHQ-9 | 0 | | | | PHQ-9 | | | SCORE | | | | | quick | | | | | | | | depression | | | | | | | | | | | | | | | | assessment | | | | | | | | panel | | | | | | | | [Reported. | | | | | | | | PHQ] | + + + +-------+---+---+ + | | PHQ-9 | 0|0|0|0|0| | | | | Adolescent | | | | 0|0|0|0|No | | | | | | | | t | | | | depression | | | | difficult | | | | screening | | | | at all | | | | | | | | | | | | assessment | + + + +-------+---+---+ + | | SMOK | Former | | | | Tobacco | | | STATUS | smoker | | | | use CPHS | + + + +-------+---+---+ + | | MEDS | Done | [...] | | | | ) | + + + +-------+---+---+ + + + | Lab Report: Confirm Opiate 9 Drugs LCMS | + + + + + +---+--------+---+ + | | ZZ-GE-UNK | Not | | NOTDET | N | GE use | | | | Detected | | | | only - for | | | | ng/mL | | | | LinkLogic | | | | | | | | import | | | | | | | | when terms | | | | | | | | are not | | | | | | | | otherwise | | | | | | | | specified | + + + +---+--------+---+ + Plan of Care + + + + | Type | Date | Detail | + + + + | Appointment | 11:20 AM | Prabhakar Gusman MD, [address] | | [address], | | | | [place], [address], | + + + + | Appointment | 01:00 PM | Marisel Bergeron [facility], [address] | | | | [facility] [address], | | | | [place], [address], | | | | | + + + + | Referral | | ENT Consult | | | | [employer] Phone #, [phone] | | | [address], | | | | [place], [address] | | | | | + + + + | Referral | | ENT Consult | | | | [facility] Phone #, [phone] | | | | [address] , | | | | [place], [address] | | | | | + + + + | Referral | | Podiatry Consult | | | | GUILLERMO Haley, | | | | [address] [facility], | | | | [place], [address] | | | | | + + + + | Pending order | | CRP | + + + + | Pending order | | Sedimentation Rate (ESR) | + + + + | Pending order | | CBC w/ Auto Diff | + + + + | Pending order | | CBC w/ Auto Diff | + + + + | Pending order | | Basic Metabolic Panel | + + + + | Pending order | | Nose Culture, MRSA Only | + + + + | Pending order | | CBC w/ Auto Diff | + + + + | Pending order | | Glyco Hemoglobin, A1C | + + + + | Pending order | | Cotinine | + + + + | Pending order | | MR Meenakshi RamirezLt | + + + + | Pending order | | XR Foot 2V-Rt | + + + + | Pending order | | XR Foot 2V-Rt | + + + + Procedures + + + + + | Code | Procedure Name | Date | Entry Date | + + + + + | [id number] | Overweight | | | + + + + + | [id number] | Overweight | | | + + + + + | CPT-21027 | Theraputic | | | | | Injection (IM/SubQ) | | | + + + + + | CPT-J1885 | Toradol 15mg | | | + + + + + | CPT-29454 | Urine Toxicology | | | | | Screen, Multiple | | | | | Drug Classes by | | | | | Direct Optical | | | | | Observation | | | + + + + + | CPT-16760 | [address] Individual | | | | | Therapy (53-112) | | | | | No POS Phone | | | + + + + + | CPT-64350 | XR Hip W/Pelvis | | | | | 2-3V-Lt | | | + + + + + | CPT-72751 | Theraputic | | | | | Injection (IM/SubQ) | | | + + + + + | CPT-J1885 | Toradol 15mg | | | + + + + + | CPT-68722 | Urine Toxicology | | | | | Screen, Multiple | | | | | Drug Classes by | | | | | Direct Optical | | | | | Observation | | | + + + + + | CPT-13925 | Theraputic | | | | | Injection (IM/SubQ) | | | + + + + + | CPT-J1885 | Toradol 15mg | | | + + + + + | CPT-15503 | Theraputic | | | | | Injection (IM/SubQ) | | | + + + + + | CPT-J1885 | Toradol 15mg | | | + + + + + | CPT-17950 | Theraputic | | | | | Injection (IM/SubQ) | | | + + + + + | CPT-J1885 | Toradol 15mg | | | + + + + + | CPT-09617 | XR Hip W/Pelvis | | | | | 2-3V-Lt | | | + + + + + | CBC AUTO 04159 | CBC w/ Auto Diff | | | + + + + + | CPT-03192 | XR Hip W/Pelvis | | | | | 2-3V-Lt | | | + + + + + | CBC AUTO 71251 | CBC w/ Auto Diff | | | + + + + + | M NOS MRSA 70319 | Nose Culture, MRSA | | | | | Only | | | + + + + + | CHEM 8 53530 | Basic Metabolic | | | | | Panel | | | + + + + + | CPT-73657 | Health Risk | | | | | Assessment | | | + + + + + | GLYCO HGB 16459 | Glyco Hemoglobin, | | | | | A1C | | | + + + + + | CPT-98897 | Health Risk | | | | | Assessment | | | + + + + + | CPT-52705 | Health Risk | | | | | Assessment | | | + + + + + | U NICOTINE 89925 | Cotinine | | | + + + + + | 60017 | MR Hip-WO Con-Lt | | | + + + + + | CPT-34549 | XR Hip W/Pelvis | | | | | 2-3V-Lt | | | + + + + + | CPT- 41951 | Administration | | | | | (49640) | | | + + + + + | CPT-J1885 | Toradol Inj. 60mg | | | + + + + + | CPT-42517 | Urine Tox, multiple | | | | | drug classes | | | + + + + + | 51063 | XR Foot 2V-Rt | | | + + + + + | [id number] | [Recorded for CQM] | | | | | Pedal pulse taking | | | | | (procedure) | | | + + + + + | [id number] | [Recorded for CQM] | | | | | Documentation of | | | | | current medications | | | | | (procedure) | | | + + + + + | [id number] | [Recorded for CQM] | | | | | Health-related | | | | | behavior | | | + + + + + | [id number] | MU Generic Patient | | | | | Encounter Service | | | | | (from patch) | | | + + + + + | [id number] | [Recorded for CQM] | | | | | Pedal pulse taking | | | | | (procedure) | | | + + + + + | [id number] | [Recorded for CQM] | | | | | Documentation of | | | | | current medications | | | | | (procedure) | | | + + + + + | [id number] | [Recorded for CQM] | | | | | Drug or Medication | | | + + + + + | [id number] | [Recorded for CQM] | | | | | Details of drug | | | | | misuse behavior | | | + + + + + | [id number] | [Recorded for CQM] | | | | | Never smoker | | | + + + + + | [id number] | [Recorded for CQM] | | | | | Never smoked | | | | | tobacco (finding) | | | + + + + + | 051888007 | [Recorded for CQM] | | | | | Tobacco use and | | | | | exposure | | | + + + + + | 015370020 | [Recorded for CQM] | | | | | Alcohol intake | | | + + + + + | 555489912 | [Recorded for CQM] | | | | | Allergy | | | + + + + + | 569362033 | [Recorded for CQM] | | | | | Alcohol intake | | | + + + + + | 729661435 | [Recorded for CQM] | | | | | Tobacco use and | | | | | exposure | | | + + + + + | 054479971 | [Recorded for CQM] | | | | | Details of drug | | | | | misuse behavior | | | + + + + + | 183072458 | [Recorded for CQM] | | | | | Drug or Medication | | | + + + + + | [id number] | [Recorded for CQM] | | | | | Current Light | | | | | tobacco smoker | | | + + + + + | [id number] | [Recorded for CQM] | | | | | Light tobacco | | | | | smoker (finding) | | | + + + + + | [id number] | [Recorded for CQM] | | | | | Documentation of | | | | | current medications | | | | | (procedure) | | | + + + + + | [id number] | [Recorded for CQM] | | | | | Pedal pulse taking | | | | | (procedure) | | | + + + + + | 98894 | XR Foot 2V-Rt | | | + + + + [...] + | | BMI (Body Mass | 36.21 | kg/m2 | Body Mass Index | | | Index) | | | [Ratio] | + + +-------+---------+ + | | BP Diastolic | 76 | mm[Hg] | blood pressure, | | | | | | diastolic | + + +-------+---------+ + | | BP Diastolic | 76 | mm[Hg] | blood pressure, | | | | | | diastolic, | | | | | | second | | | | | | observation | + + +-------+---------+ + | | BP Systolic | 148 | mm[Hg] | blood pressure, | | | | | | systolic, | | | | | | second | | | | | | observation | + + +-------+---------+ + | | BP Systolic | 148 | mm[Hg] | blood pressure, | | | | | | systolic | + + +-------+---------+ + | | Body | 97.5 | [degF] | temperature E&M | | | Temperature | | | | + + +-------+---------+ + | | Heart Rate | 80 | /min | pulse rate E&M | + + +-------+---------+ + | | Respiratory | 16 | /min | respiratory | | | Rate | | | rate E&M | + + +-------+---------+ + | | Weight Measured | 266 | [lb_av] | weight E&M | + + +-------+---------+ + | | BMI (Body Mass | 35.39 | kg/m2 | Body Mass Index | | | Index) | | | [Ratio] | + + +-------+---------+ + | | BP Diastolic | 78 | mm[Hg] | blood pressure, | | | | | | diastolic | + + +-------+---------+ + | | BP Systolic | 136 | mm[Hg] | blood pressure, | | | | | | systolic | + + +-------+---------+ + | | Heart Rate | 88 | /min | pulse rate E&M | + + +-------+---------+ + | | Height | 72 | [in_us] | height E&M | + + +-------+---------+ + | | Weight Measured | 260 | [lb_av] | weight E&M | + + +-------+---------+ + | | BMI (Body Mass | 35.93 | kg/m2 | Body Mass Index | | | Index) | | | [Ratio] | + + +-------+---------+ + | | BP Diastolic | 76 | mm[Hg] | blood pressure, | | | | | | diastolic | + + +-------+---------+ + | | BP Diastolic | 76 | mm[Hg] | blood pressure, | | [...] + +-------+---------+ + | | Body | 98.2 | [degF] | temperature E&M | | | Temperature | | | | + + +-------+---------+ + | | Heart Rate | 88 | /min | pulse rate E&M | + + +-------+---------+ + | | Respiratory | 14 | /min | respiratory | | | Rate | | | rate E&M | + + +-------+---------+ + | | Weight Measured | 264 | [lb_av] | weight E&M | + + +-------+---------+ + | | BP Diastolic | 82 | mm[Hg] | blood pressure, | | | | | | diastolic | + + +-------+---------+ + | | BP Systolic | 136 | mm[Hg] | blood pressure, | | | | | | systolic | + + +-------+---------+ + | | Heart Rate | 88 | /min | pulse rate E&M | + + +-------+---------+ + | | BP Diastolic | 72 | mm[Hg] | blood pressure, | | | | | | diastolic, | | | | | | second | | | | | | observation | + + +-------+---------+ + | | BP Diastolic | 72 | mm[Hg] | blood pressure, | | | | | | diastolic | + + +-------+---------+ + | | BP Systolic | 114 | mm[Hg] | blood pressure, | | | | | | systolic | + + +-------+---------+ + | | BP Systolic | 114 | mm[Hg] | blood pressure, | | | | | | systolic, | | | | | | second | | | | | | observation | + + +-------+---------+ + | | Body | 98.5 | [degF] | temperature E&M | | | Temperature | | | | + + +-------+---------+ + | | Heart Rate | 75 | /min | pulse rate E&M | + + +-------+---------+ + | | Respiratory | 18 | /min | respiratory | | | Rate | | | rate E&M | + + +-------+---------+ + | | BP Diastolic | 76 | mm[Hg] | blood pressure, | | | | | | diastolic | + + +-------+---------+ + | | BP Diastolic | 76 | mm[Hg] | blood pressure, | | | | | | diastolic, | | | | | | second | | | | | | observation | + + +-------+---------+ + | | BP Systolic | 118 | mm[Hg] | blood pressure, | | | | | | systolic | + + +-------+---------+ + | | BP Systolic | 118 | mm[Hg] | blood pressure, | | [...] + | | BMI (Body Mass | 35.06 | kg/m2 | Body Mass Index | | | Index) | | | [Ratio] | + + +-------+---------+ + | | BP Diastolic | 80 | mm[Hg] | blood pressure, | | | | | | diastolic, | | | | | | second | | | | | | observation | + + +-------+---------+ + | | BP Diastolic | 80 | mm[Hg] | blood pressure, | | | | | | diastolic | + + +-------+---------+ + | | BP Systolic | 128 | mm[Hg] | blood pressure, | | | | | | systolic | + + +-------+---------+ + | | BP Systolic | 128 | mm[Hg] | blood pressure, | | | | | | systolic, | | | | | | second | | | | | | observation | + + +-------+---------+ + | | Body | 98.2 | [degF] | temperature E&M | | | Temperature | | | | + + +-------+---------+ + | | Heart Rate | 81 | /min | pulse rate E&M | + + +-------+---------+ + | | Height | 72 | [in_us] | height E&M | + + +-------+---------+ + | | Respiratory | 16 | /min | respiratory | | | Rate | | | rate E&M | + + +-------+---------+ + | | Weight Measured | 257.6 | [lb_av] | weight E&M | + [...] + +-------+---------+ + | | Body | 99.2 | [degF] | temperature E&M | | | Temperature | | | | + + +-------+---------+ + | | Heart Rate | 96 | /min | pulse rate E&M | + + +-------+---------+ + | | Respiratory | 16 | /min | respiratory | | | Rate | | | rate E&M | + + +-------+---------+ + | | BMI (Body Mass | 34.71 | kg/m2 | Body Mass Index | | | Index) | | | [Ratio] | + + +-------+---------+ + | | BP Diastolic | 78 | mm[Hg] | blood pressure, | | | | | | diastolic | + + +-------+---------+ + | | BP Systolic | 126 | mm[Hg] | blood pressure, | | | | | | systolic | + + +-------+---------+ + | | Heart Rate | 85 | /min | pulse rate E&M | + + +-------+---------+ + | | Height | 72 | [in_us] | height E&M | + + +-------+---------+ + | | Weight Measured | 255 | [lb_av] | weight E&M | + + +-------+---------+ + | | BMI (Body Mass | 35.12 | kg/m2 | Body Mass Index | | | Index) | | | [Ratio] | + + +-------+---------+ + | | BP Diastolic | 74 | mm[Hg] | blood pressure, | | | | | | diastolic, | | | | | | second | | | | | | observation | + + +-------+---------+ + | | BP Diastolic | 74 | mm[Hg] | blood pressure, | | | | | | diastolic | + + +-------+---------+ + | | BP Systolic | 120 | mm[Hg] | blood pressure, | | | | | | systolic | + + +-------+---------+ + | | BP Systolic | 120 | mm[Hg] | blood pressure, | | | | | | systolic, | | | | | | second | | | | | | observation | + + +-------+---------+ + | | Body | 96.9 | [degF] | temperature E&M | | | Temperature | | | | + + +-------+---------+ + | | Heart Rate | 82 | /min | pulse rate E&M | + + +-------+---------+ + | | Height | 72 | [in_us] | height E&M | + + +-------+---------+ + | | Weight Measured | 258 | [lb_av] | weight E&M | + + +-------+---------+ + | | BMI (Body Mass | 35.25 | kg/m2 | Body Mass Index | | | Index) | | | [Ratio] | + + +-------+---------+ + | | BP Diastolic | 78 | mm[Hg] | blood pressure, | | | | | | diastolic, | | | | | | second | | | | | | observation | + + +-------+---------+ + | | BP Diastolic | 78 | mm[Hg] | blood pressure, | | | | | | diastolic | + + +-------+---------+ + | | BP Systolic | 110 | mm[Hg] | blood pressure, | | | | | | systolic | + + +-------+---------+ + | | BP Systolic | 110 | mm[Hg] | blood pressure, | | | | | | systolic, | | | | | | second | | | | | | observation | + + +-------+---------+ + | | Body | 98.2 | [degF] | temperature E&M | | | Temperature | | | | + + +-------+---------+ + | | Heart Rate | 90 | /min | pulse rate E&M | + + +-------+---------+ + | | Height | 72 | [in_us] | height E&M | + + +-------+---------+ + | | Respiratory | 14 | /min | respiratory | | | Rate | | | rate E&M | + + +-------+---------+ + | | Weight Measured | 259 | [lb_av] | weight E&M | + [...] | + + + +-------+ + | Light tobacco | SMOK STATUS | Light tobacco | | | | smoker | | smoker | | | | (finding) | | | | | + + + +-------+ +"
--- OUTSIDE RECORDS SUMMARY | ~2019-09-25 | XMS | Clinical Summary ---
Demographics + + + | Address | General Delivery | | | [place] [address] | + + + | Home Phone | ;ext=[phone] | + + + | Preferred Language | Unknown | + + + | Marital Status | U | + + + | Baptism Affiliation | Unknown | + + + | Race | White | + + + | Ethnic Group | Not or | + + + Author + + + | Author | [facility] | + + + | Organization | [facility] | + + + | Address | [address] | | | [place] [address] | + + + | Phone | Unavailable | + + + Care Team Providers + +------+ + | Care Fitness Manager Name | Role | Phone | + [...] | | tion | | +---------+---------+---------+---------+---------+---------+---------+---------+---------+ | POST- | [id number] | | Active | | Marisel | | Postvir | | | RAL | 04 | | | | Rubio | | al | | | COUGH | (SNOMED | | | | COUNTER HOP | | cough | | | SYNDROM | CT) | | | | | | | | | E | | | | | | | | | +---------+---------+---------+---------+---------+---------+---------+---------+---------+ | EPISTAX | [id number] | | Active | | David | | Epistax | | | IS, | 1 | / | | / | Chicker | | is | | | RECURRE | (SNOMED | | | | ing [place] | | | | | NT | CT) | | | | | | | | +---------+---------+---------+---------+---------+---------+---------+---------+---------+ | NASAL | [id number] | | Active | | David | | Nasal | | | POLYP | 5 | /19 | | /19 | Chicker | | polyp | | | | (SNOMED | | | | ing [place] | | | | | | CT) | | | | | | | | +---------+---------+---------+---------+---------+---------+---------+---------+---------+ | BRONCHI | [id number] | | Active | | David | | Bronchi | | | TIS | 4 | /19 | | / | Chicker | | tis | | | | (SNOMED | | | | ing [place] | | | | | | CT) | | | | | | | | +---------+---------+---------+---------+---------+---------+---------+---------+---------+ | ACUTE | [id number] | | Active | | David | | Common | | | NASOPHA | 6 | /19 | | | Chicker | | cold | | | RYNGITI | (SNOMED | | | | ing [place] | | | | | S | CT) | | | | | | | | +---------+---------+---------+---------+---------+---------+---------+---------+---------+ | ADJUSTM | [id number] | | Active | | Mariah | [...] mood | | +---------+---------+---------+---------+---------+---------+---------+---------+---------+ | CHRONIC | [id number] | | Active | | Faina | | Chronic | | | PAIN | | | | / | [place] | | pain | | | SYNDROM | (SNOMED | | | | EXTRACTION OPERATOR | | syndrom | | | E | CT) | | | | | | e | | +---------+---------+---------+---------+---------+---------+---------+---------+---------+ | PAIN | [id number] | | Active | | Faina | | Psychal | | | DISORDE | | / | | / | [place] | | urban | | | R | (SNOMED | | | | EXTRACTION OPERATOR | | | | | ASSOCIA [...] | | | +---------+---------+---------+---------+---------+---------+---------+---------+---------+ | ANEMIA | [id number] | | Active | | Florecita | | Anemia | | | | 00 | / | | / | Suhr | | | | | | (SNOMED | | | | COUNTER HOP-C | | | | | | CT) | | | | | | | | +---------+---------+---------+---------+---------+---------+---------+---------+---------+ | APHTHOU | [id number] | | Active | | Charlen | | Aphthou | | | S ULCER | 05 | / | | | e Pimentel | | s ulcer | | | OF | (SNOMED | | | | CCMA | | of | | | MOUTH | CT) | | | | | | mouth | | +---------+---------+---------+---------+---------+---------+---------+---------+---------+ | DIFFICU | [id number] | | Active | | Nayan | | Walking | | | LTY IN | 08 | /20 | | /20 | Hersche | | | | | WALKING | (SNOMED | | | | r DO | | disabil | | | | CT) | | | | | | ity | | +---------+---------+---------+---------+---------+---------+---------+---------+---------+ | TOTAL | [id number] | | Active | | Florecita | | Total | | | HIP | 7 | /17 | | /17 | Suhr | | replace | | | ARTHROP | (SNOMED | | | | COUNTER HOP-C | | ment of | | | LASTY, | CT) | | | | | | hip | | | LEFT | | | | | | | | | +---------+---------+---------+---------+---------+---------+---------+---------+---------+ | OSTEOAR | M19.90 | | Resolve | | Florecita | | Unspeci | | | THROSIS | (ICD-10 | / | d | / | Suhr | | fied | | | , | -CM) | | | | COUNTER HOP-C | | osteoar | | | LOCALIZ [...] | | | +---------+---------+---------+---------+---------+---------+---------+---------+---------+ | FOOT | [id number] | | Resolve | | Florecita | | Foot | | | PAIN, | 7 | /15 | d | /15 | Suhr | | pain | | | RIGHT | (SNOMED | | | | COUNTER HOP-C | | | | | | CT) | | | | | | | | +---------+---------+---------+---------+---------+---------+---------+---------+---------+ | RECTAL | [id number] | | Resolve | | Florecita | | Rectal | per | | BLEEDIN | 2 | /15 | d | /15 | Suhr | | hemorrh | Sacred | | G | (SNOMED | | | | COUNTER HOP-C | | age | Heart | | | CT) | | | | | | | [facility] | | | | | | | | | | nd ER | | | | | | | | | | visit | | | | | | | | | | 05/11/14 | +---------+---------+---------+---------+---------+---------+---------+---------+---------+ | ANAL | [id number] | | Resolve | | Florecita | | Anal | per Dr. | | FISSURE | 6 | /30 | d | /30 | Suhr | | fissure | Alexander | | | (SNOMED | | | | COUNTER HOP-C | | | [place] | | | CT) | | | | | | | MD | +---------+---------+---------+---------+---------+---------+---------+---------+---------+ | NEW | [id number] | | Resolve | | Florecita | | Procedu | | | PATIENT | 03 | /24 | d | /24 | Suhr | | re | | | | (SNOMED | | | | COUNTER HOP-C | | carried | | | CONSULT | CT) | | | | | | out on | | | ATION | | | | | | | | | | | | | | | | | subject | | +---------+---------+---------+---------+---------+---------+---------+---------+---------+ | AVASCUL | [id number] | | Active | | Prabhakar | | Avascul | | | AR | 03 | / | | / | | | ar | | | NECROSI | (SNOMED | | | | VanAnro | | necrosi | | | S OF | CT) | | | | oy MD | | s of | | | FEMORAL | | | | | | | the | | | HEAD | | | | | | | head of | | | | | | | | | | femur | | +---------+---------+---------+---------+---------+---------+---------+---------+---------+ | URI | [id number] | | Inactiv | | Loraine | [...] on | | +---------+---------+---------+---------+---------+---------+---------+---------+---------+ | HYPERTE | 2343640 | | Active | | Rudy | | Hyperte | | | NSION | 3 | /24 | | /24 | Monteir | | nsive | | | | (SNOMED | | | | o MD | | disorde | | | | CT) | | | | | | r | | +---------+---------+---------+---------+---------+---------+---------+---------+---------+ | ELEVATE | [id number] | | Active | | Rudy | | Hypergl | | | D BLOOD | 7 | /24 | | /24 | Monteir | | ycemia | | | SUGAR | (SNOMED | | | | o MD | | | | | | CT) | | | | | | | | +---------+---------+---------+---------+---------+---------+---------+---------+---------+ | NEW | [id number] | | Removed | | Rudy | [...] subject | | +---------+---------+---------+---------+---------+---------+---------+---------+---------+ | SCREENI | 1165400 | | Resolve | | Rudy | [...] ng | | +---------+---------+---------+---------+---------+---------+---------+---------+---------+ | SCREENI | 6849597 | | Resolve | | Rudy | [...] ng | | +---------+---------+---------+---------+---------+---------+---------+---------+---------+ | NICOTIN | [id number] | | Active | | Prabhakar | | Nicotin | | | E | 8 | /08 | | /08 | | | e | | | ADDICTI | (SNOMED | | | | VanAnro | | depende | | | ON | CT) | | | | oy MD | | nce | | +---------+---------+---------+---------+---------+---------+---------+---------+---------+ | ASEPTIC | [id number] | | Inactiv | | Ann | [...] hip | | +---------+---------+---------+---------+---------+---------+---------+---------+---------+ | URI | 6402757 | | Inactiv | | Phan | | Upper | | | | 9 | /19 | e | /19 | Middlek | | respira | | | | (SNOMED | | | | auff | | tory | | | | CT) | | | | COUNTER HOP | | infecti | | | | | | | | | | on | | +---------+---------+---------+---------+---------+---------+---------+---------+---------+ | SORE | 1394569 | | Inactiv | | Phan | | Pain in | | | THROAT | 03 | /19 | e | /19 | Middlek | | throat | | | | (SNOMED | | | | auff | | | | | | CT) | | | | COUNTER HOP | | | | +---------+---------+---------+---------+---------+---------+---------+---------+---------+ | OTHER | 2270710 | | Active | | Prabhakar | [...] | | | +---------+---------+---------+---------+---------+---------+---------+---------+---------+ | OPIOID | 6321964 | | Active | | Phan | | Nondepe | | | ABUSE, | 05 | /28 | | /28 | Middlek | | ndent | | | CONTINU | (SNOMED | | | | auff | | opioid | | | OUS | CT) | | | | COUNTER HOP | | abuse, | | | | | | | | | | continu | | | | | | | | | | ous | | +---------+---------+---------+---------+---------+---------+---------+---------+---------+ | HIP | 6420341 | | Active | | Phan | | Hip | | | PAIN, | 2 | / | | / | Middlek | | pain | | | LEFT | (SNOMED | | | | auff | | | | | | CT) | | | | COUNTER HOP | | | | +---------+---------+---------+---------+---------+---------+---------+---------+---------+ | UPPER | 4234315 | | Inactiv | | Malachi Levin | | Viral | | | RESPIRA [...] on | | +---------+---------+---------+---------+---------+---------+---------+---------+---------+ | BRACHIA | 4359590 | | Inactiv | | Malachi Levin [...] | | | +---------+---------+---------+---------+---------+---------+---------+---------+---------+ | RIB | [id number] | | Inactiv | | Malachi Levin | | Rib | | | PAIN | | | e | | Dye | | pain | | | | (SNOMED | | | | ACNP | | | | | | CT) | | | | | | | | +---------+---------+---------+---------+---------+---------+---------+---------+---------+ | LESION | 4106228 | | Active | | Clementina | [...] | | THROSIS | (ICD-10 | | | /02 | | | fied [...] | | | +---------+---------+---------+---------+---------+---------+---------+---------+---------+ | ANAL | 5207697 | | Removed | | Karissa | | Anal | per Dr. | | FISSURE | 6 | | | | Sea | | fissure | Alexander | | | (SNOMED | | | | RN | | | [place] | | | CT) | | | | | | | MD | +---------+---------+---------+---------+---------+---------+---------+---------+---------+ | RECTAL | 7644498 | | Removed | | Rodrigo | | Rectal | per | | BLEEDIN | 2 | | | | Jatin | | [...] | 05/11/14 | +---------+---------+---------+---------+---------+---------+---------+---------+---------+ | SCREENI | 2378415 | | Removed | | Juan | [...] ng | | +---------+---------+---------+---------+---------+---------+---------+---------+---------+ | SCREENI | 2421474 | | Removed | | Andriy | | Alcohol | | | NG FOR | 01 | /19 | | /19 | Padovic | | | | | ALCOHOL | (SNOMED | | | | h COUNTER HOP | | consump | | | ISM | CT) | | | | | | tion | | | | | | | | | | screeni | | | | | | | | | | ng | | +---------+---------+---------+---------+---------+---------+---------+---------+---------+ | FOOT | 8350673 | | Removed | | Skye | | Foot | | | PAIN, | 7 | /15 | | /15 | Epifanio | | pain | | | RIGHT | (SNOMED | | | | COUNTER HOP | | | | | | CT) [...] | 1 | | | BISACODYL | [id number] | Florecita | | 10 MG | suppositor | | | | 1 | Suhr COUNTER HOP-C | | SUPP | y QHS PRN | | | | | | | | constipati | | | | | | | | on | | | | | | + + + + + + + + | GLORIA TUTTLE | | | | GLORIA TUTTLE | | Andriy | | | | | | | | Padovich | | | | | | | | COUNTER HOP | + + + + + + + + | MIRALAX | 17grams | | | POLYETHYLE | 2746692399 | Melvina | | POWD | mixed [...] Apply prn | | | BALSAM | [id number] | Nayan | | 650-72.5 | to lower | | | JOSEPH-GEOVANY | 3 | [place] | | MG/0.82ML | lip for | [...] 1 lozenge | | | BENZOCAINE | 9702302006 | Karma | | SORE | every 2 | | | -MENTHOL | 0 | Berenice [place] | | THROAT | hours as | | | | | | | 10-2.1 MG | needed for | | | | | | | LOZG | sore | | | | | | | | throat | | | | | | + + + + + + + + | PAIN | signed | | | PAIN | | Cyndi [place] | | AGREEMENT | 1.2.15 | | | AGREEMENT | | NC[facility] | | D RATHER | | | | D RATHER | | | + + + + + + + + | UDS | 1.2.15 | | | UDS | | Cyndi [place]field | | | consistent | | | | | NCMA | + + + + + + + + | COLACE 100 | 1 cap BID | | | DOCUSATE | [id number] | Florecita | | MG CAPS | | | | SODIUM | 0 | Suhr COUNTER HOP-C | + + + + + + + + | [facility] LYSINE | take 1 tab | | | LYSINE | 0409218804 | David | | 1000 MG | [...] tab BID | | | CYCLOBENZA | [id number] | Florecita | | YESSY HCL | PRN muscle | | | YESSY HCL | 1 | Suhr COUNTER HOP-C | | 10 MG TABS | pain | | | | | | + + + + + + + + | NORCO | 1 every 8 | | | HYDROCODON | 5334982624 | Rudy | | 5-325 MG | hours as | | | E-ACETAMIN | 1 | Yaquelin | | TABS | needed | | | OPHEN | | MD | + + + + + + + + | NORCO | 1 tab po | | | HYDROCODON | 4309813563 | Karma | | 5-325 MG | QD | | | E-ACETAMIN | 1 | Berenice [place] | | TABS | | | | OPHEN | | | + + + + + + + + | OXYCODONE | 3-4 per | | | OXYCODONE | 0081001673 | Karma | | HCL 10 MG | day | | | HCL | 1 | Berenice [place] | | TABS | | | | | | | + + + + + + + + | OXYCODONE | 1 tab q 4 | | | OXYCODONE | 3621629314 | Karma | | HCL 15 MG | hrs PRN | | | HCL | 1 | Berenice CONRAD | | TABS | pain | | | | | | + + + + + + + + | HYDROCODON | Take 1 tab | | | HYDROCODON | 0574538354 | Melvina | | E-ACETAMIN | po [...] 1 tab | | | TRAMADOL | 5259363075 | Karma | | HCL 50 MG | nightly | | | HCL | 1 | Berenice CONRAD | | TABS | | | | | | | + + + + + + + + | NO | | | | NO | | Prabhakar | | SCHEDULED | | | | SCHEDULED | | VanMarinerooy | | 2 DRUGS | | | | 2 DRUGS | | MD | | PER | | | | PER | | | | | | | | | | | | S. | | | | S. | | | + + + + + + + + | OXYCODONE- | Take 1 tab | | | OXYCODONE- | 5159642260 | Phan | | ACETAMINOP | by mouth | | | ACETAMINOP | 5 | Middlekauf | | HEN 5-325 | three | | | HEN | | f COUNTER HOP | | MG TABS | times per [...] Inhale 2 | | | ALBUTEROL | 0958112400 | Malachi Levin | | 108 (90 [...] 4-6 per | | | HYDROCODON | 1983103658 | Prabhakar | | 5-325 MG | day | | | E-ACETAMIN | 1 | VanMelanie | | TABS | | | | OPHEN | | MD | + + + + + + + + | COUMADIN 4 | 1 tab | | | WARFARIN | 9124564683 | David | | MG TABS | [...] Apply prn | | | BALSAM | 0665373205 | David | | 650-72.5 | to [...] | 17grams | | | POLYETHYLE | 8862688634 | David | | POWD | mixed [...] 1 tab | | | WARFARIN | 5366624265 | Florecita | | MG TABS | daily | | | SODIUM | 0 | Suhr COUNTER HOP-C | + + + + + + + + | OXYCODONE | 3-4 per | | | OXYCODONE | 0236496196 | Rudy | | HCL 10 MG | day | | | HCL | 1 | Yaquelin | | TABS | | | | | | MD | + + + + + + + + | TESSALON | Take three | | | BENZONATAT | 5632313399 | Karma | | RACHEL 100 | [...] | three | | | IBUPROFEN | 1301457775 | Prabhakar | | 600 MG | times per | | | | 0 | VanAnrooy | | TABS | day | | | | | MD | + + + + + + + + | LISINOPRIL | 1 tab one | | | LISINOPRIL | 3633433107 | David | | 20 MG | time per | | | | 1 | Chickering | | TABS | day | | | | | MA | + + + + + + + + | [facility] MILK | prn | | | MAGNESIUM | 1288262449 | David | | OF | constipati [...] cap BID | | | DOCUSATE | [id number] | David | | MG CAPS | | | | SODIUM | 0 | Chick[place] | | | | | | | | MA | + + + + + + + + | TYLENOL 8 | 1 tablet | | | ACETAMINOP | 8822364561 | Nayan | | HOUR | every 4 | | | HEN | 1 | [place] | | ARTHRITIS | hours as | [...] TAB Q6 | | | TRAMADOL | 2722391296 | Rudy | | HCL 50 MG | HRS PRN | | | HCL | 1 | Yaquelin | | TABS | PAIN | | | | | MD | + + + + + + + + | CLINDAMYCI | 1 tab by | | | CLINDAMYCI | 6591100319 | Tommy | | N HCL 150 [...] Inhale 2 | | | ALBUTEROL | 1705218067 | Phan | | 108 (90 | puffs | | | SULFATE | 2 | Middlekauf | | Base) | every 4 | | | | | f COUNTER HOP | | MCG/ACT | hours as | [...] tab q | | | OXYCODONE- | 2455893496 | Florecita | | 7.5-325 MG | 4 hrs for | | | ACETAMINOP | 0 | Suhr COUNTER HOP-C | | TABS | pain, hold | [...] po bid | | | HYDROCODON | 7024852952 | Cyndi [place]field | | E-ACETAMIN | prn severe | | | E-ACETAMIN | 1 | NCMA | | OPHEN | pain | | | OPHEN | | | | 5-325 MG | | | | | | | | TABS | | | | | | | + + + + + + + + | NORCO | 4-6 per | | | HYDROCODON | 4580652567 | Karma | | 5-325 MG | day | | | E-ACETAMIN | 1 | Berenice CONRAD | | TABS | | | | OPHEN | | | + + + + + + + + | TRAMADOL | 1-2 TAB | | | TRAMADOL | 4032447535 | David | | HCL 50 MG | BID PRN | | | HCL | 1 | Chick[place] | | TABS | PAIN | | | | | MA | + + + + + + + + | GUAIFENESI | 1 tab | | | GUAIFENESI | 4025189821 | Karma | | N 400 MG [...] 2tabs po | | | VARENICLIN | 7071658632 | Rudy | | MG TABS | qd | | | E TARTRATE | 6 | Yaquelin | | | | | | | | MD | + + + + + + + + | BISAC-EVAC | 1 | | | BISACODYL | 8860987230 | David | | 10 MG | [...] 1 tab | | | PSEUDOEPHE | 7467151658 | Phan | | INE HCL | by mouth | | | DRINE HCL | 2 | Middlekauf | | 30 MG TABS | four times | | | | | f COUNTER HOP | | | per day | | [...] 1tab by | | | HYDROCODON | 9398339652 | David | | 7.5-325 MG | mouth one | | | E-ACETAMIN | 1 | Sarabjitering | | TABS | time per | | | OPHEN | | MA | | | day as | | | | | | | | needed | | | | | | + + + + + + + + | DOXYCYCLIN | Take 1 | | | DOXYCYCLIN | 7326337188 | Malachi Levin | | E HYCLATE [...] 1 tablet | | | MELOXICAM | 6993130638 | Phan | | MG TABS | by mouth | | | | 1 | Middlekauf | | | daily. | | | | | f COUNTER HOP | | | Must last | | | | | | | | 30 days. | | | | | | + + + + + + + + | CLINDAMYCI | 1 tab by | | | CLINDAMYCI | 1744074332 | Malachi K | | N HCL [...] | prn | | | MAGNESIUM | 2928717661 | Melvina | | OF | constipati [...] By mouth | | | IBUPROFEN | 7127602507 | Andriy | | 200 MG | 3 times a | | | | 1 | Padovich | | TABS | day | | | | | COUNTER HOP | + + + + + + + + | CHANTIX 1 | 1 tab two | | | VARENICLIN | 0429469376 | Karma | | MG TABS | times per | | | E TARTRATE | 6 | Berenice CONRAD | | | day | | | | | | + + + + + + + + | HYDROCODON | Take 1 tab | | | HYDROCODON | 0266315958 | Karma | | E-ACETAMIN | po [...] tab BID | | | CYCLOBENZA | 8409496699 | David | | YESSY HCL | PRN muscle | | | YESSY HCL | 1 | Chickering | | 10 MG TABS | pain | | | | | MA | + + + + + + + + | IBUPROFEN | three | | | IBUPROFEN | 5452418665 | Rudy | | 600 MG | times per | | | | 0 | Yaquelin | | TABS | day | | | | | MD | + + + + + + + + | PSEUDOEPHE | 1-2 | | | PSEUDOEPHE | 8794414489 | Marisel | | DRINE HCL | tablets | | | DRINE HCL | 2 | Rubio COUNTER HOP | | 30 MG TABS | every [...] 1 to | | | GUAIFENESI | 8457740139 | Marisel | | N 200 MG | 2 tablets | | | N | 0 | Rubio COUNTER HOP | | TABS | by mouth | [...] 1 spray | | | FLUTICASON | 9458734254 | Marisel | | ALLERGY | eash | | | E | 2 | Rubio GUPTAP | | RELIEF 50 | nostril | | | PROPIONATE | | | | MCG/ACT | once a day | | | | | | | SUSP | | | | | | | + + + + + + + + | LISINOPRIL | 1 tab one | | | LISINOPRIL | 3567060797 | Rudy | | 20 MG | time per | | | | 1 | Yaquelin | | TABS | day | | | | | MD | + + + + + + + + | CHANTIX 1 | take 1tab | | | VARENICLIN | 1988431198 | Rudy | | MG TABS | po daily | | | E TARTRATE | 6 | Yaquelin | | | | | | | | MD | + + + + + + + + | ELAVIL 25 | Take 1 | | | AMITRIPTYL | 5847166491 | Rudy | | MG TABS | tab po QHS | | | INE HCL | 0 | Yaquelin | | | | | | | | MD | + + + + + + + + | TRAMADOL | 1-2 TAB | | | TRAMADOL | 9776473043 | Rudy | | HCL 50 MG | BID PRN | | | HCL | 1 | Yaquelin | | TABS | PAIN | | | | | MD | + + + + + + + + | TRAMADOL | 1 TAB BID | | | TRAMADOL | 7373288778 | Rudy | | HCL 50 MG | PRN PAIN | | | HCL | 1 | Yaquelin | | TABS | | | | | | MD | + + + + + + + + | NORCO | 1tab by | | | HYDROCODON | 9228873108 | Rudy | | 7.5-325 MG | [...] TAB Q6 | | | TRAMADOL | 0734800267 | Prabhakar | | HCL 50 MG | HRS PRN | | | HCL | 1 | Uzma | | TABS | PAIN | | | | | MD | + + + + + + + + | NORCO | 1tab po | | | HYDROCODON | 1318291548 | Rudy | | 7.5-325 MG | [...] tab po | | | HYDROCODON | 0642376660 | Rudy | | 5-325 MG | QD | | | E-ACETAMIN | 1 | Yaquelin | | TABS | | | | OPHEN | | MD | + + + + + + + + | TRAMADOL | take 1 tab | | | TRAMADOL | 1471180562 | Rudy | | HCL 50 MG | nightly | | | HCL | 1 | Yaquelin | | TABS | | | | | | MD | + + + + + + + + | NORCO | 1 every 8 | | | HYDROCODON | 1120095507 | Prabhakar | | 5-325 MG | hours as | | | E-ACETAMIN | 1 | VanMarinerooy | | TABS | needed | | | OPHEN | | MD | + + + + + + + + | OXYCODONE | 1 tab q 4 | | | OXYCODONE | 5498485393 | Florecita | | HCL 15 MG | hrs PRN | | | HCL | 1 | Suhr COUNTER HOP-C | | TABS | pain | | | | | | + + + + + + + + | [facility] LYSINE | take 1 tab | | | LYSINE | 8256133971 | Rudy | | 1000 MG | [...] tab q | | | OXYCODONE- | 1639796463 | Florecita | | 7.5-325 MG | 4 hrs for | | | ACETAMINOP | 0 | Suhr COUNTER HOP-C | | TABS | pain, hold | | | HEN | | | | | if | | | | | | | | somnolent | | | | | | | | or asleep. | | | | | | + + + + + + + + | PERCOCET | 1-2 tab q | | | OXYCODONE- | 5333340185 | Florecita | | 7.5-325 MG | 4 hrs PRN | | | ACETAMINOP | 0 | Suhr COUNTER HOP-C | | TABS | pain, | | | HEN | | | | | dispense | | | | | | | | #84 | | | | | | + + + + + + + + | TESSALON | Take three | | | BENZONATAT | 1917563641 | Loraine | | [place] 100 | times a | | | [...] 1tab po | | | VARENICLIN | 4614496053 | Rudy | | MG TABS | bid | | | E TARTRATE | 6 | Yaquelin | | | | | | | | MD | + + + + + + + + | HYDROCODON | Take 1 tab | | | HYDROCODON | 8720013585 | Rudy | | E-ACETAMIN | po [...] po qd | | | LISINOPRIL | 7117598681 | Rudy | | 20 MG | | | | | 1 | Yaquelin | | TABS | | | | | | MD | + + + + + + + + | TRAMADOL | 1 TAB Q6 | | | TRAMADOL | 5748165996 | Prabhakar | | HCL 50 MG | HRS PRN | | | HCL | 1 | VanAnrooy | | TABS | PAIN | | | | | MD | + + + + + + + + | CEPACOL | 1 lozenge | | | BENZOCAINE | 4943670231 | Phan | | SORE | every 2 | | | -MENTHOL | 0 | Middlekauf | | THROAT | hours as | | | | | f COUNTER HOP | | 10-2.1 MG | needed for | | | | | | | LOZG | sore | | | | | | | | throat | | | | | | + + + + + + + + | GUAIFENESI | 1 tab | | | GUAIFENESI | [id number] | Phan | | N 400 MG | every 4 | | | N | 0 | Abeluf | | TABS | hours as | | | | | f COUNTER HOP | | | needed for | | | | | | | | | | | | | | | | cough/yaw | | | | | | | | estion | | | | | | + + + + + + + + | PSEUDOEPHE | Take 1 tab | | | PSEUDOEPHE | [id number] | Malachi Levin | | DRINE HCL [...] Take 3 | | | PREDNISONE | [id number] | Malachi K | | 20 MG [...] Take 1 | | | GABAPENTIN | [id number] | Malachi Levin | | 300 MG [...] 1 tab | | | CYCLOBENZA | [id number] | Malachi Levin | | YESSY HCL [...] 1 tab | | | OXYCODONE- | [id number] | Malachi Levin | | ACETAMINOP | [...] po bid | | | HYDROCODON | [id number] | Tommy | | E-ACETAMIN | prn [...] 1 tablet | | | MELOXICAM | [id number] | Jovany | | MG TABS | [...] | | | | | | | COUNTER HOP | + + + + + + [...] | | | | | | | COUNTER HOP | +---------+ + + + + + | CODEINE | Itch | | Critical | No Longer | Skye | | | | | | Active | Epifanio COUNTER HOP | +---------+ + + + + + | SULFA | Break out in | | Critical | | Skye | | | lashon | | | | Epifanio COUNTER HOP | +---------+ + + + + + Results +------+------+-------+------+-------+------+ + | Date | Name | Value | Unit | Range | Flag | Descriptio | | | | | | | | n | +------+------+-------+------+-------+------+ + + + | Office Visit: URI [...] + + + | Lab Report: C DIFFICILE BY DNA AMP | + + + [...] +--------+ +---+---+---+ + | | ESM_RR | [id number] | | | B | e-scripts | [...] | | | | | | | [id number]` | | | | | | | | [id number] | | | | | | | [...] | | | Dietary | | | FLOW MANAGER | | | | | management | [...] | | | Dietary | | | FLOW MANAGER | | | | | management | [...] + + +---+ + + + | Penitentiary Facility: Nursing Facility [facility] / Discharge anticipated [...] + + | Office Visit: hip surgery f/mikala diaz | + + + + + +---+---+---+ [...] + + +---+ + + + | Penitentiary Facility: [facility] Facility [facility] / Initial Encounter [...] + + + | Office Visit: Ortho Pre op L MELONY 06/14/16 | + + [...] +--------+-----+---+---------+---+ + + + | Office 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: 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- lft hip pain | + [...] | | | Dietary | | | FLOW MANAGER | | | | | management | [...] Gusman MD, [address], | | | | [place] [address], | + + + + | Appointment | 11:00 AM | Marisel Bergeron [facility], [address] | | | [facility] [address], | | | | [place], [phone], | | | | | + + + + | Referral | | ENT Consult | + + + + | Referral | | Podiatry Consult | | | | GUILLERMO Haley, | | | | [address] [facility], | | | | [place], [address] | | | | | + + [...] | Pending order | | MR Meenakshi Sterling | + + + + | Pending order | | XR Foot 2V-Rt | + + + + | Pending order | | XR Foot 2V-Rt | + + + + Procedures + + + + + | Code | Procedure Name | Date | Entry Date | + + + + + | [id number] | Overweight | | | + + + + + | CPT-19977 | Theraputic | | | | | Injection (IM/SubQ) | | | + + + + + | CPT-J1885 | Toradol 15mg | | | + + + + + | CPT-53240 | Urine Toxicology | | | | | Screen, Multiple | | | | | Drug Classes by | | | | | Direct Optical | | | | | Observation | | | + + + + + | CPT-44268 | [id number] Individual | | | | | Therapy (53-112) | | | | | No POS Phone | | | + + + + + | CPT-78138 | XR Hip W/Pelvis | | | | | 2-3V-Lt | | | + + + + + | CPT-17112 | Theraputic | | | | | Injection (IM/SubQ) | | | + + + + + | CPT-J1885 | Toradol 15mg | | | + + + + + | CPT-28904 | Urine Toxicology | | | | | Screen, Multiple | | | | | Drug Classes by | | | | | Direct Optical | | | | | Observation | | | + + + + + | CPT-62673 | Theraputic | | | | | Injection (IM/SubQ) | | | + + + + + | CPT-J1885 | Toradol 15mg | | | + + + + + | CPT-29774 | Theraputic | | | | | Injection (IM/SubQ) | | | + + + + + | CPT-J1885 | Toradol 15mg | | | + + + + + | CPT-86731 | Theraputic | | | | | Injection (IM/SubQ) | | | + + + + + | CPT-J1885 | Toradol 15mg | | | + + + + + | CPT-03923 | XR Hip W/Pelvis | | | | | 2-3V-Lt | | | + + + + + | CBC AUTO 95208 | CBC w/ Auto Diff | | | + + + + + | CPT-65502 | XR Hip W/Pelvis | | | | | 2-3V-Lt | | | + + + + + | CBC AUTO 44232 | CBC w/ Auto Diff | | | + + + + + | M NOS MRSA 64016 | Nose Culture, MRSA | | | | | Only | | | + + + + + | CHEM 8 91430 | Basic Metabolic | | | | | Panel | | | + + + + + | CPT-04223 | Health Risk | | | | | Assessment | | | + + + + + | GLYCO HGB 76308 | Glyco Hemoglobin, | | | | | A1C | | | + + + + + | CPT-11810 | Health Risk | | | | | Assessment | | | + + + + + | CPT-73147 | Health Risk | | | | | Assessment | | | + + + + + | U NICOTINE 23704 | Cotinine | | | + + + + + | 12263 | MR Hip-WO Con-Lt | | | + + + + + | CPT-45615 | XR Hip W/Pelvis | | | | | 2-3V-Lt | | | + + + + + | CPT- 95846 | Administration | | | | | (99269) | | | + + + + + | CPT-J1885 | Toradol Inj. 60mg | | | + + + + + | CPT-63304 | Urine Tox, multiple | | | | | drug classes | | | + + + + + | 61971 | XR Foot 2V-Rt | | | + + + + + | [id number] | [Recorded for [facility]] | | | | | Pedal pulse taking | | | | | (procedure) | | | + + + + + | [id number] | [Recorded for [facility]] | | | | | Documentation of | | | | | current medications | | | | | (procedure) | | | + + + + + | [id number] | [Recorded for [facility]] | | | | | Health-related | | | | | behavior | | | + + + + + | [id number] | [facility] Generic Patient | | | | | Encounter Service | | | | | (from patch) | | | + + + + + | [id number] | [Recorded for [facility]] | | | | | Pedal pulse taking | | | | | (procedure) | | | + + + + + | [id number] | [Recorded for [facility]] | | | | | Documentation of | | | | | current medications | | | | | (procedure) | | | + + + + + | [id number] | [Recorded for [facility]] | | | | | Drug or Medication | | | + + + + + | [id number] | [Recorded for [facility]] | | | | | Details of drug | | | | | misuse behavior | | | + + + + + | [id number] | [Recorded for [facility]] | | | | | Never smoker | | | + + + + + | [id number] | [Recorded for [facility]] | | | | | Never smoked | | | | | tobacco (finding) | | | + + + + + | [id number] | [Recorded for [facility]] | | | | | Tobacco use and | | | | | exposure | | | + + + + + | [id number] | [Recorded for [facility]] | | | | | Alcohol intake | | | + + + + + | [id number] | [Recorded for [facility]] | | | | | Allergy | | | + + + + + | [id number] | [Recorded for [facility]] | | | | | Alcohol intake | | | + + + + + | 727062224 | [Recorded for [facility]] | | | | | Tobacco use and | | | | | exposure | | | + + + + + | 463833912 | [Recorded for [facility]] | | | | | Details of drug | | | | | misuse behavior | | | + + + + + | [id number] | [Recorded for [facility]] | | | | | Drug or Medication | | | + + + + + | [id number] | [Recorded for [facility]] | | | | | Current Light | | | | | tobacco smoker | | | + + + + + | [id number] | [Recorded for [facility]] | | | | | Light tobacco | | | | | smoker (finding) | | | + + + + + | [phone] | [Recorded for [facility]] | | | | | Documentation of | | | | | current medications | | | | | (procedure) | | | + + + + + | [id number] | [Recorded for [facility]] | | | | | Pedal pulse taking | | | | | (procedure) | | | + + + + + | 36381 | XR Foot 2V-Rt | | | [...]
--- OUTSIDE RECORDS SUMMARY | ~2019-09-25 | XMS | Clinical Summary ---
Demographics + + + | Address | [address] | | | [place] [address] | + + + | Home Phone | ;ext=[phone] | + + + | Preferred Language | Unknown | + + + | Marital Status | U | + + + | Nondenominational Affiliation | Unknown | + + + | Race | White | + + + | Ethnic Group | Not or | + + + Author + + + | Author | [facility] | + + + | Organization | [facility] | + + + | Address | [address] | | | [place] [address] | + + + | Phone | Unavailable | + + + Care Team Providers + +------+ + | Care Campaign Management Specialist Name | Role | Phone | [...] tion | | +---------+---------+---------+---------+---------+---------+---------+---------+---------+ | COSTOCH | [id number] | | Active | | Marisel | | Costal | | | ONDRITI | 4 | | | | Rubio | | chondri | | | S, LEFT | (SNOMED | | | | SCRIPT SUPERVISOR | | tis | | | | CT) | | | | | | | | +---------+---------+---------+---------+---------+---------+---------+---------+---------+ | URI | [id number] | | Active | | Marisel | | Upper | | | | 9 | | | | Rubio | | respira | | | | (SNOMED | | | | SCRIPT SUPERVISOR | | tory | | | | CT) | | | | | | infecti | | | | | | | | | | on | | +---------+---------+---------+---------+---------+---------+---------+---------+---------+ | RIB | [id number] | | Active | | Marisel | | Rib | | | PAIN ON | 02 | / | | / | Rubio | | pain | | | LEFT | (SNOMED | | | | SCRIPT SUPERVISOR | | | | | SIDE | CT) | | | | | | | | +---------+---------+---------+---------+---------+---------+---------+---------+---------+ | POST- | [id number] | | Active | | Marisel | | Postvir | | | RAL | 04 | / | | | Rubio | | al | | | COUGH | (SNOMED | | | | SCRIPT SUPERVISOR | | cough | | | SYNDROM | CT) | | | | | | | | | E | | | | | | | | | +---------+---------+---------+---------+---------+---------+---------+---------+---------+ | EPISTAX | [id number] | | Active | | David | | Epistax | | | IS, | 1 | /19 | | /19 | [place] | | is | | | RECURRE | (SNOMED | | | | ing [place] | | | | | NT | CT) | | | | | | | | +---------+---------+---------+---------+---------+---------+---------+---------+---------+ | NASAL | [id number] | | Active | | David | | Nasal | | | POLYP | 5 | /19 | | /19 | [place] | | polyp | | | | (SNOMED | | | | ing [place] | | | | | | CT) | | | | | | | | +---------+---------+---------+---------+---------+---------+---------+---------+---------+ | BRONCHI | [id number] | | Active | | David | | Bronchi | | | TIS | 4 | /19 | | /19 | [place] | | tis | | | | (SNOMED | | | | ing [place] | | | | | | CT) | | | | | | | | +---------+---------+---------+---------+---------+---------+---------+---------+---------+ | ACUTE | [id number] | | Active | | David | | Common | | | NASOPHA | 6 | /19 | | /19 | [place] | | cold | | | RYNGITI | (SNOMED | | | | ing [place] | | | | | S | CT) | | | | | | | | +---------+---------+---------+---------+---------+---------+---------+---------+---------+ | ADJUSTM | [id number] | | Active | | Mariah | [...] mood | | +---------+---------+---------+---------+---------+---------+---------+---------+---------+ | CHRONIC | [id number] | | Active | | Faina | | Chronic | | | PAIN | | | | | [place] | | pain | | | SYNDROM | (SNOMED | | | | ORNAMENTAL IRONWORKING SUPERVISOR | | syndrom | | | E | CT) | | | | | | e | | +---------+---------+---------+---------+---------+---------+---------+---------+---------+ | PAIN | [id number] | | Active | | Faina | | Psychal | | | DISORDE | | / | | / | [place] | | urban | | | R | (SNOMED | | | | ORNAMENTAL IRONWORKING SUPERVISOR | | | | | ASSOCIA | [...] | | | +---------+---------+---------+---------+---------+---------+---------+---------+---------+ | ANEMIA | [id number] | | Active | | Florecita | | Anemia | | | | 00 | / | | | Suhr | | | | | | (SNOMED | | | | SCRIPT SUPERVISOR-C | | | | | | CT) | | | | | | | | +---------+---------+---------+---------+---------+---------+---------+---------+---------+ | APHTHOU | [id number] | | Active | | Charlen | | Aphthou | | | S ULCER | 05 | / | | | e Pimentel | | s ulcer | | | OF | (SNOMED | | | | CCMA | | of | | | MOUTH | CT) | | | | | | mouth | | +---------+---------+---------+---------+---------+---------+---------+---------+---------+ | DIFFICU | [id number] | | Active | | Bobby | | Walking | | | LTY IN | 08 | /20 | | /20 | Hersche | | | | | WALKING | (SNOMED | | | | r DO | | disabil | | | | CT) | | | | | | ity | | +---------+---------+---------+---------+---------+---------+---------+---------+---------+ | TOTAL | [id number] | | Active | | Florecita | | Total | | | HIP | 7 | / | | /17 | Suhr | | replace | | | ARTHROP | (SNOMED | | | | SCRIPT SUPERVISOR-C | | ment of | | | [...] , | -CM) | | | | SCRIPT SUPERVISOR-C | | osteoar | | | LOCALIZ [...] | | | +---------+---------+---------+---------+---------+---------+---------+---------+---------+ | FOOT | [id number] | | Resolve | | Florecita | | Foot | | | PAIN, | 7 | /15 | d | /15 | Suhr | | pain | | | RIGHT | (SNOMED | | | | SCRIPT SUPERVISOR-C | | | | | | CT) | | | | | | | | +---------+---------+---------+---------+---------+---------+---------+---------+---------+ | RECTAL | [id number] | | Resolve | | Florecita | | Rectal | per | | BLEEDIN | 2 | /15 | d | /15 | Suhr | | hemorrh | Sacred | | G | (SNOMED | | | | SCRIPT SUPERVISOR-C | | age | Heart | | | CT) | | | | | | | [facility] | | | | | | | | | | nd ER | | | | | | | | | | visit | | | | | | | | | | 05/11/14 | +---------+---------+---------+---------+---------+---------+---------+---------+---------+ | ANAL | [id number] | | Resolve | | Florecita | | Anal | per | | FISSURE | 6 | /30 | d | /30 | Suhr | | fissure | Alexander | | | (SNOMED | | | | SCRIPT SUPERVISOR-C | | | [place] | | | CT) | | | | | | | MD | +---------+---------+---------+---------+---------+---------+---------+---------+---------+ | NEW | [id number] | | Resolve | | Florecita | | Procedu | | | PATIENT | 03 | / | d | /24 | Suhr | | re | | | | (SNOMED | | | | SCRIPT SUPERVISOR-C | | carried | | | CONSULT | CT) | | | | | | out on | | | ATION | | | | | | | | | | | | | | | | | subject | | +---------+---------+---------+---------+---------+---------+---------+---------+---------+ | AVASCUL | [id number] | | Active | | Prabhakar | [...] femur | | +---------+---------+---------+---------+---------+---------+---------+---------+---------+ | URI | [id number] | | Inactiv | | Loraine | [...] on | | +---------+---------+---------+---------+---------+---------+---------+---------+---------+ | HYPERTE | 1539755 | | Active | | Rudy | | Hyperte | | | NSION | 3 | /24 | | / | Monteir | | nsive | | | | (SNOMED | | | | o MD | | disorde | | | | CT) | | | | | | r | | +---------+---------+---------+---------+---------+---------+---------+---------+---------+ | ELEVATE | [id number] | | Active | | Rudy | | Hypergl | | | D BLOOD | 7 | /24 | | /24 | Monteir | | ycemia | | | SUGAR | (SNOMED | | | | o MD | | | | | | CT) | | | | | | | | +---------+---------+---------+---------+---------+---------+---------+---------+---------+ | NEW | [id number] | | Removed | | Rudy | [...] subject | | +---------+---------+---------+---------+---------+---------+---------+---------+---------+ | SCREENI | 6010917 | | Resolve | | Rudy | [...] ng | | +---------+---------+---------+---------+---------+---------+---------+---------+---------+ | SCREENI | 4170715 | | Resolve | | Rudy | [...] ng | | +---------+---------+---------+---------+---------+---------+---------+---------+---------+ | NICOTIN | 2549747 | | Active | | Prabhakar | | Nicotin | | | E | 8 | /08 | | /08 | | | e | | | ADDICTI | (SNOMED | | | | VanAnro | | depende | | | ON | CT) | | | | oy MD | | nce | | +---------+---------+---------+---------+---------+---------+---------+---------+---------+ | ASEPTIC | 9387802 | | Inactiv | | Ann | [...] hip | | +---------+---------+---------+---------+---------+---------+---------+---------+---------+ | URI | [id number] | | Inactiv | | Phan | | Upper | | | | 9 | /19 | e | /19 | Middlek | | respira | | | | (SNOMED | | | | auff | | tory | | | | CT) | | | | SCRIPT SUPERVISOR | | infecti | | | | | | | | | | on | | +---------+---------+---------+---------+---------+---------+---------+---------+---------+ | SORE | [id number] | | Inactiv | | Phan | | Pain in | | | THROAT | 03 | /19 | e | /19 | Middlek | | throat | | | | (SNOMED | | | | auff | | | | | | CT) | | | | SCRIPT SUPERVISOR | | | | +---------+---------+---------+---------+---------+---------+---------+---------+---------+ | OTHER | [id number] | | Active | | Prabhakar | [...] | | | +---------+---------+---------+---------+---------+---------+---------+---------+---------+ | OPIOID | [id number] | | Active | | Phan | | Nondepe | | | ABUSE, | 05 | / | | / | Middlek | | ndent | | | CONTINU | (SNOMED | | | | auff | | opioid | | | OUS | CT) | | | | SCRIPT SUPERVISOR | | abuse, | | | | | | | | | | continu | | | | | | | | | | ous | | +---------+---------+---------+---------+---------+---------+---------+---------+---------+ | HIP | 5138892 | | Active | | Phan | | Hip | | | PAIN, | 2 | / | | | Middlek | | pain | | | LEFT | (SNOMED | | | | auff | | | | | | CT) | | | | SCRIPT SUPERVISOR | | | | +---------+---------+---------+---------+---------+---------+---------+---------+---------+ | UPPER | 6546728 | | Inactiv | | Malachi K [...] on | | +---------+---------+---------+---------+---------+---------+---------+---------+---------+ | BRACHIA | [id number] | | Inactiv | | Malachi Levin [...] | | | +---------+---------+---------+---------+---------+---------+---------+---------+---------+ | RIB | 2175698 | | Inactiv | | Malachi Levin | | Rib | | | PAIN | | | e | | Dye | | pain | | | | (SNOMED | | | | ACNP | | | | | | CT) | | | | | | | | +---------+---------+---------+---------+---------+---------+---------+---------+---------+ | LESION | 0799753 | | Active | | Clementina | [...] | | | +---------+---------+---------+---------+---------+---------+---------+---------+---------+ | ANAL | 3980782 | | Removed | | Karissa | | Anal | per Dr. | | FISSURE | | | | | Sea | | fissure | Alexander | | | (SNOMED | | | | RN | | | [place] | | | CT) | | | | | | | MD | +---------+---------+---------+---------+---------+---------+---------+---------+---------+ | RECTAL | 3361115 | | Removed | | Rodrigo | [...] | 05/11/14 | +---------+---------+---------+---------+---------+---------+---------+---------+---------+ | SCREENI | 4054459 | | Removed | | Juan | [...] ng | | +---------+---------+---------+---------+---------+---------+---------+---------+---------+ | SCREENI | 9297189 | | Removed | | Andriy | | Alcohol | | | NG FOR | 01 | /19 | | /19 | Padovic | | | | | ALCOHOL | (SNOMED | | | | h SCRIPT SUPERVISOR | | consump | | | ISM | CT) | | | | | | tion | | | | | | | | | | screeni | | | | | | | | | | ng | | +---------+---------+---------+---------+---------+---------+---------+---------+---------+ | FOOT | 5154591 | | Removed | | Skye | | Foot | | | PAIN, | 7 | /15 | | /15 | Epifanio | | pain | | | RIGHT | (SNOMED | | | | SCRIPT SUPERVISOR | | | | | | CT) [...] | 1 | | | BISACODYL | [id number] | Florecita | | 10 MG | suppositor | | | | 1 | Suhr SCRIPT SUPERVISOR-C | | SUPP | y QHS PRN [...] | | | | | | | SCRIPT SUPERVISOR | + + + + + + + + | MIRALAX | 17grams | | | POLYETHYLE | 2855627232 | Melvina | | POWD | mixed [...] Apply prn | | | BALSAM | [id number] | Bobby | | 650-72.5 | to lower | | | JOSEPH-GEOVANY | 3 | [place] | | MG/0.82ML | lip for | [...] 1 lozenge | | | BENZOCAINE | 8658474772 | Karma | | SORE | every 2 | | | -MENTHOL | 0 | [place] | | THROAT | hours as [...] cap BID | | | DOCUSATE | [id number] | Florecita | | MG CAPS | | | | SODIUM | 0 | Mariselahr SCRIPT SUPERVISOR-C | + + + + + + + + | [facility] L[facility] | take 1 tab | | | LYSINE | 9001822389 | David | | 1000 MG | [...] tab BID | | | CYCLOBENZA | [id number] | Florecita | | YESSY HCL | PRN muscle | | | YESSY HCL | 1 | Mariselahr SCRIPT SUPERVISOR-C | | 10 MG TABS | pain | | | | | | + + + + + + + + | NORCO | 1 every 8 | | | HYDROCODON | 2196676561 | Rudy | | 5-325 MG | hours as | | | E-ACETAMIN | 1 | Yaquelin | | TABS | needed | | | OPHEN | | MD | + + + + + + + + | NORCO | 1 tab po | | | HYDROCODON | 3096581330 | Karma | | 5-325 MG | QD | | | E-ACETAMIN | 1 | Berenice CONRAD | | TABS | | | | OPHEN | | | + + + + + + + + | OXYCODONE | 3-4 per | | | OXYCODONE | 5547311871 | Karma | | HCL 10 MG | day | | | HCL | 1 | Berenice CONRAD | | TABS | | | | | | | + + + + + + + + | OXYCODONE | 1 tab q 4 | | | OXYCODONE | 0559123958 | Karma | | HCL 15 MG | hrs PRN | | | HCL | 1 | Berenice CONRAD | | TABS | pain | | | | | | + + + + + + + + | HYDROCODON | Take 1 tab | | | HYDROCODON | 1132327774 | Melvina | | E-ACETAMIN | po [...] 1 tab | | | TRAMADOL | 6593247318 | Karma | | HCL 50 MG [...] 1 tab | | | OXYCODONE- | 9394851624 | Phan | | ACETAMINOP | by mouth | | | ACETAMINOP | 5 | Middlekauf | | HEN 5-325 | three | | | HEN | | f SCRIPT SUPERVISOR | | MG TABS | times per [...] Inhale 2 | | | ALBUTEROL | 2033049763 | Malachi Levin | | 108 (90 [...] 4-6 per | | | HYDROCODON | 2889710793 | Prabhakar | | 5-325 MG | day | | | E-ACETAMIN | 1 | VanMelanie | | TABS | | | | OPHEN | | MD | + + + + + + + + | COUMADIN 4 | 1 tab | | | WARFARIN | 7967985217 | David | | MG TABS | [...] Apply prn | | | BALSAM | 5019528407 | David | | 650-72.5 | to [...] | 17grams | | | POLYETHYLE | 4150266147 | David | | POWD | mixed [...] 1 tab | | | WARFARIN | 5302700414 | Florecita | | MG TABS | daily | | | SODIUM | 0 | Suhr SCRIPT SUPERVISOR-C | + + + + + + + + | OXYCODONE | 3-4 per | | | OXYCODONE | 1190213287 | Rudy | | HCL 10 MG | day | | | HCL | 1 | Yaquelin | | TABS | | | | | | MD | + + + + + + + + | TESSALON | Take three | | | BENZONATAT | 9504550264 | Karma | | RACHEL 100 | [...] | three | | | IBUPROFEN | 5732126231 | Prabhakar | | 600 MG | times per | | | | 0 | VanMarinerooy | | TABS | day | | | | | MD | + + + + + + + + | LISINOPRIL | 1 tab one | | | LISINOPRIL | 2795235562 | David | | 20 MG | time per | | | | 1 | [place] | | TABS | day | | | | | [place] | + + + + + + + + | [facility] MILK | prn | | | MAGNESIUM | 3398566142 | David | | OF | constipati [...] cap BID | | | DOCUSATE | [id number] | David | | MG CAPS | | | | SODIUM | 0 | [place] | | | | | | | | [place] | + + + + + + + + | TYLENOL 8 | 1 tablet | | | ACETAMINOP | 4084642557 | Bobby | | HOUR | every 4 | | | HEN | 1 | [place] | | ARTHRITIS | hours as | [...] TAB Q6 | | | TRAMADOL | 4210486813 | Rudy | | HCL 50 MG | HRS PRN | | | HCL | 1 | Yaquelin | | TABS | PAIN | | | | | MD | + + + + + + + + | CLINDAMYCI | 1 tab by | | | CLINDAMYCI | 0602643283 | Tommy | | N HCL 150 [...] Inhale 2 | | | ALBUTEROL | 5546706251 | Phan | | 108 (90 | puffs | | | SULFATE | 2 | [place]kauf | | Base) | every 4 | | | | | f SCRIPT SUPERVISOR | | MCG/ACT | hours as | [...] tab q | | | OXYCODONE- | 7781961016 | Florecita | | 7.5-325 MG | 4 hrs for | | | ACETAMINOP | 0 | Suhr SCRIPT SUPERVISOR-C | | TABS | pain, hold | [...] po bid | | | HYDROCODON | 9606266218 | [place]di [place] | | E-ACETAMIN | prn severe | | | E-ACETAMIN | 1 | [facility] | | OPHEN | pain | | | OPHEN | | | | 5-325 MG | | | | | | | | TABS | | | | | | | + + + + + + + + | NORCO | 4-6 per | | | HYDROCODON | 6154392512 | Karma | | 5-325 MG | day | | | E-ACETAMIN | 1 | Berenice CONRAD | | TABS | | | | OPHEN | | | + + + + + + + + | TRAMADOL | 1-2 TAB | | | TRAMADOL | 4583821354 | David | | HCL 50 MG | BID PRN | | | HCL | 1 | [place] | | TABS | PAIN | | | | | [place] | + + + + + + + + | GUAIFENESI | 1 tab | | | GUAIFENESI | 2835192770 | Karma | | N 400 MG [...] 2tabs po | | | VARENICLIN | 5610291565 | Rudy | | MG TABS | qd | | | E TARTRATE | 6 | Yaquelin | | | | | | | | MD | + + + + + + + + | BISAC-EVAC | 1 | | | BISACODYL | 0964353371 | David | | 10 MG | [...] 1 tab | | | PSEUDOEPHE | 1417747201 | Phan | | DRINE HCL | by mouth | | | DRINE HCL | 2 | Middlekauf | | 30 MG TABS | four times | | | | | f SCRIPT SUPERVISOR | | | per day | | [...] 1tab by | | | HYDROCODON | 5209847603 | David | | 7.5-325 MG | [...] Take 1 | | | DOXYCYCLIN | 4593592068 | Malachi Levin | | E HYCLATE [...] MOUTHWASH | | [place] | | | swmauroow | | | | | MA | | | every | | | | | | | | 4-6hrs or | | | | | | | | with meals | | | | | | + + + + + + + + | MOBIC 7.5 | 1 tablet | | | MELOXICAM | 8444830448 | Phan | | MG TABS | by mouth | | | | 1 | [place]kauf | | | daily. | | | | | f SCRIPT SUPERVISOR | | | Must last | | | | | | | | 30 days. | | | | | | + + + + + + + + | CLINDAMYCI | 1 tab by | | | CLINDAMYCI | 2059326755 | Malachi K | | N HCL [...] | prn | | | MAGNESIUM | 6419248823 | Melvina | | OF | constipati [...] By mouth | | | IBUPROFEN | 0412332173 | Andriy | | 200 MG | 3 times a | | | | 1 | Padovich | | TABS | day | | | | | SCRIPT SUPERVISOR | + + + + + + + + | CHANTIX 1 | 1 tab two | | | VARENICLIN | 9426859206 | Karma | | MG TABS | times per | | | E TARTRATE | 6 | Berenice CONRAD | | | day | | | | | | + + + + + + + + | HYDROCODON | Take 1 tab | | | HYDROCODON | 9714995550 | Karma | | E-ACETAMIN | po [...] tab BID | | | CYCLOBENZA | 6845856893 | David | | YESSY HCL | PRN muscle | | | YESSY HCL | 1 | [place] | | 10 MG TABS | pain | | | | | [place] | + + + + + + + + | IBUPROFEN | three | | | IBUPROFEN | 0345013128 | Rudy | | 600 MG | times per | | | | 0 | Yaquelin | | TABS | day | | | | | MD | + + + + + + + + | CHANTIX | follow | | | VARENICLIN | 8522470644 | Marisel | | STARTING | coco [...] 1 by | | | TRAMADOL | 1670970005 | Marisel | | HCL 50 MG | mouth | | | HCL | 1 | Rubio SCRIPT SUPERVISOR | | TABS | every 6 | | | | | | | | hours | | | | | | + + + + + + + + | PSEUDOEPHE | 1-2 | | | PSEUDOEPHE | 4136543025 | Marisel | | DRINE HCL | tablets | | | DRINE HCL | 2 | Rubio SCRIPT SUPERVISOR | | 30 MG TABS | every [...] | 1-2 | | | PSEUDOEPHE | 8494589924 | Marisel | | DRINE HCL | tablets | | | DRINE HCL | 2 | Rubio SCRIPT SUPERVISOR | | 30 MG TABS | every [...] 1 spray | | | FLUTICASON | 1721453620 | Marisel | | ALLERGY | eash | | | E | 2 | Rubio SCRIPT SUPERVISOR | | RELIEF 50 | nostril | | | PROPIONATE | | | | MCG/ACT | once a day | | | | | | | SUSP | | | | | | | + + + + + + + + | GUAIFENESI | take 1 to | | | GUAIFENESI | 6126545251 | Marisel | | N 200 MG [...] take 1tab | | | VARENICLIN | 2612287313 | Rudy | | MG TABS | po daily | | | E TARTRATE | 6 | Yaquelin | | | | | | | | MD | + + + + + + + + | LISINOPRIL | 1 tab one | | | LISINOPRIL | 8958266974 | Rudy | | 20 MG | time per | | | | 1 | Yaquelin | | TABS | day | | | | | MD | + + + + + + + + | ELAVIL 25 | Take 1 | | | AMITRIPTYL | 8173027085 | Rudy | | MG TABS | tab po QHS | | | INE HCL | 0 | Yaquelin | | | | | | | | MD | + + + + + + + + | TRAMADOL | 1-2 TAB | | | TRAMADOL | 8540538031 | Rudy | | HCL 50 MG | BID PRN | | | HCL | 1 | Yaquelin | | TABS | PAIN | | | | | MD | + + + + + + + + | TRAMADOL | 1 TAB BID | | | TRAMADOL | 9039562085 | Rudy | | HCL 50 MG | PRN PAIN | | | HCL | 1 | Yaquelin | | TABS | | | | | | MD | + + + + + + + + | NORCO | 1tab by | | | HYDROCODON | 4278834116 | Rudy | | 7.5-325 MG | [...] TAB Q6 | | | TRAMADOL | 4082667930 | Prabhakar | | HCL 50 MG | HRS PRN | | | HCL | 1 | VanAnrooy | | TABS | PAIN | | | | | MD | + + + + + + + + | NORCO | 1tab po | | | HYDROCODON | 6765206252 | Rudy | | 7.5-325 MG | [...] tab po | | | HYDROCODON | 7274823047 | Rudy | | 5-325 MG | QD | | | E-ACETAMIN | 1 | Yaquelin | | TABS | | | | OPHEN | | MD | + + + + + + + + | TRAMADOL | take 1 tab | | | TRAMADOL | 7985061903 | Rudy | | HCL 50 MG | nightly | | | HCL | 1 | Yaquelin | | TABS | | | | | | MD | + + + + + + + + | NORCO | 1 every 8 | | | HYDROCODON | 8919672243 | Prabhakar | | 5-325 MG | hours as | | | E-ACETAMIN | 1 | VanAnrooy | | TABS | needed | | | OPHEN | | MD | + + + + + + + + | OXYCODONE | 1 tab q 4 | | | OXYCODONE | 8468640506 | Florecita | | HCL 15 MG | hrs PRN | | | HCL | 1 | Suhr SCRIPT SUPERVISOR-C | | TABS | pain | | | | | | + + + + + + + + | [facility]YS[facility] | take 1 tab | | | LYSINE | 4984889396 | Rudy | | 1000 MG | [...] tab q | | | OXYCODONE- | 9058602819 | Florecita | | 7.5-325 MG | 4 hrs for | | | ACETAMINOP | 0 | Suhr SCRIPT SUPERVISOR-C | | TABS | pain, hold | | | HEN | | | | | if | | | | | | | | somnolent | | | | | | | | or asleep. | | | | | | + + + + + + + + | PERCOCET | 1-2 tab q | | | OXYCODONE- | 7782327761 | Florecita | | 7.5-325 MG | 4 hrs PRN | | | ACETAMINOP | 0 | Suhr SCRIPT SUPERVISOR-C | | TABS | pain, | | | HEN | | | | | dispense | | | | | | | | #84 | | | | | | + + + + + + + + | TESSALON | Take three | | | BENZONATAT | 3437141813 | Loraine | | RACHEL 100 | [...] 1tab po | | | VARENICLIN | 8579481163 | Rudy | | MG TABS | bid | | | E TARTRATE | 6 | Yaquelin | | | | | | | | MD | + + + + + + + + | HYDROCODON | Take 1 tab | | | HYDROCODON | 1116489815 | Rudy | | E-ACETAMIN | po [...] po qd | | | LISINOPRIL | 9741965647 | Rudy | | 20 MG | | | | | 1 | Yaquelin | | TABS | | | | | | MD | + + + + + + + + | TRAMADOL | 1 TAB Q6 | | | TRAMADOL | 3083945782 | Prabhakar | | HCL 50 MG | HRS PRN | | | HCL | 1 | VanAnrooy | | TABS | PAIN | | | | | MD | + + + + + + + + | CEPACOL | 1 lozenge | | | BENZOCAINE | 8246415845 | Phan | | SORE | every 2 | | | -MENTHOL | 0 | Middlekauf | | THROAT | hours as | | | | | f SCRIPT SUPERVISOR | | 10-2.1 MG | needed for | | | | | | | LOZG | sore | | | | | | | | throat | | | | | | + + + + + + + + | GUAIFENESI | 1 tab | | | GUAIFENESI | 2532343578 | Phan | | N 400 MG | every 4 | | | N | 0 | Middlekauf | | TABS | hours as | | | | | f SCRIPT SUPERVISOR | | | needed for | | | | | | | | | | | | | | | | cough/yaw | | | | | | | | estion | | | | | | + + + + + + + + | PSEUDOEPHE | Take 1 tab | | | PSEUDOEPHE | [id number] | Malachi Levin | | DRINE HCL [...] Take 3 | | | PREDNISONE | [id number] | Malachi K | | 20 MG [...] 1 tab | | | OXYCODONE- | [id number] | Malachi Levin | | ACETAMINOP | [...] 1 tab | | | CYCLOBENZA | [id number] | Malachi Levin | | YESSY HCL [...] Take 1 | | | GABAPENTIN | [id number] | Malachi K | | 300 MG [...] po bid | | | HYDROCODON | [id number] | Tommy | | E-ACETAMIN | prn [...] 1 tablet | | | MELOXICAM | [id number] | Jovany | | MG TABS | [...] | | | | | | | SCRIPT SUPERVISOR | + + + + + + [...] | | | | | | | SCRIPT SUPERVISOR | +---------+ + + + + + | CODEINE | Itch | | Critical | No Longer | Skye | | | | | | Active | Epifanio SCRIPT SUPERVISOR | +---------+ + + + + + | SULFA | Break out in | | Critical | | Skye | | | hives | | | | Epifanio SCRIPT SUPERVISOR | +---------+ + + + + + [...] +--------+ +---+---+---+ + | | ESM_RR | [id number] | | | B | e-scripts | [...] | | | | | | | [id number]` | | | | | | | | [id number] | | | | | | | [...] | | | Dietary | | | HOME CARE COMPANION | | | | | management | [...] | | | Dietary | | | HOME CARE COMPANION | | | | | management | [...] + + +---+ + + + | [facility] Facility: Nursing Facility Care / Discharge anticipated [...] + + +---+ + + + | [facility] Facility: Nursing Facility Care / Initial Encounter [...] +--------+-----+---+---------+---+ + + + | 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- lft hip pain | + [...] | | | Dietary | | | HOME CARE COMPANION | | | | | management | [...] [address], | | | | [place], [address], | + + + + | Appointment | 01:00 PM | Marisel Bergeron SCRIPT SUPERVISOR, [phone] | | | | [facility] [address], | | | | [place], [place], [address], | | | | | + + + + | Referral | | ENT Consult | | | | [facility] Phone #, [phone] | | | [address], | | | | [place], [address] | | | | | + + + + | Referral | | ENT Consult | | | | [facility] Phone #, [phone] | | | | [address] , | | | | [place], [address] | | | | | + + + + | Referral | | Podiatry Consult | | | | GUILLERMO Haley, | | | | [address] [facility], | | | | [place], [address] | | | | | + + [...] | + + + + + | [id number] | Overweight | | | + + + + + | CPT-20019 | Theraputic | | | | | Injection (IM/SubQ) | | | + + + + + | [id number] | Overweight | | | + + + + + | CPT-18512 | Theraputic | | | | | Injection (IM/SubQ) | | | + + + + + | CPT-J1885 | Toradol 15mg | | | + + + + + | CPT-90348 | Urine Toxicology | | | | | Screen, Multiple | | | | | Drug Classes by | | | | | Direct Optical | | | | | Observation | | | + + + + + | CPT-03271 | [address] Individual | | | | | Therapy (53-112) | | | | | No POS Phone | | | + + + + + | CPT-09070 | XR Hip W/Pelvis | | | | | 2-3V-Lt | | | + + + + + | CPT-27099 | Theraputic | | | | | Injection (IM/SubQ) | | | + + + + + | CPT-J1885 | Toradol 15mg | | | + + + + + | CPT-96057 | Urine Toxicology | | | | | Screen, Multiple | | | | | Drug Classes by | | | | | Direct Optical | | | | | Observation | | | + + + + + | CPT-78115 | Theraputic | | | | | Injection (IM/SubQ) | | | + + + + + | CPT-J1885 | Toradol 15mg | | | + + + + + | CPT-00249 | Theraputic | | | | | Injection (IM/SubQ) | | | + + + + + | CPT-J1885 | Toradol 15mg | | | + + + + + | CPT-29357 | Theraputic | | | | | Injection (IM/SubQ) | | | + + + + + | CPT-J1885 | Toradol 15mg | | | + + + + + | CPT-85669 | XR Hip W/Pelvis | | | | | 2-3V-Lt | | | + + + + + | CBC AUTO 23202 | CBC w/ Auto Diff | | | + + + + + | CPT-56148 | XR Hip W/Pelvis | | | | | 2-3V-Lt | | | + + + + + | CBC AUTO 68176 | CBC w/ Auto Diff | | | + + + + + | M NOS MRSA 73361 | Nose Culture, MRSA | | | | | Only | | | + + + + + | CHEM 8 54893 | Basic Metabolic | | | | | Panel | | | + + + + + | CPT-79540 | Health Risk | | | | | Assessment | | | + + + + + | GLYCO HGB 78577 | Glyco Hemoglobin, | | | | | A1C | | | + + + + + | CPT-20960 | Health Risk | | | | | Assessment | | | + + + + + | CPT-14758 | Health Risk | | | | | Assessment | | | + + + + + | U NICOTINE 61800 | Cotinine | | | + + + + + | 69585 | MR Hip-WO Con-Lt | | | + + + + + | CPT-68576 | XR Hip W/Pelvis | | | | | 2-3V-Lt | | | + + + + + | CPT- 08662 | Administration | | | | | (94728) | | | + + + + + | CPT-J1885 | Toradol Inj. 60mg | | | + + + + + | CPT-94675 | Urine Tox, multiple | | | | | drug classes | | | + + + + + | 61626 | XR Foot 2V-Rt | | | + + + + + | [id number] | [Recorded for CQM] | | | | | Pedal pulse taking | | | | | (procedure) | | | + + + + + | [id number] | [Recorded for CQM] | | | | | Documentation of | | | | | current medications | | | | | (procedure) | | | + + + + + | [id number] | [Recorded for CQM] | | | | | Health-related | | | | | behavior | | | + + + + + | [id number] | MU Generic Patient | | | | | Encounter Service | | | | | (from patch) | | | + + + + + | [id number] | [Recorded for CQM] | | | | | Pedal pulse taking | | | | | (procedure) | | | + + + + + | [id number] | [Recorded for CQM] | | | | | Documentation of | | | | | current medications | | | | | (procedure) | | | + + + + + | [id number] | [Recorded for CQM] | | | | | Drug or Medication | | | + + + + + | [id number] | [Recorded for CQM] | | | | | Details of drug | | | | | misuse behavior | | | + + + + + | [id number] | [Recorded for CQM] | | | | | Never smoker | | | + + + + + | [id number] | [Recorded for CQM] | | | | | Never smoked | | | | | tobacco (finding) | | | + + + + + | [id number] | [Recorded for CQM] | | | | | Tobacco use and | | | | | exposure | | | + + + + + | 860777326 | [Recorded for CQM] | | | | | Alcohol intake | | | + + + + + | 380165462 | [Recorded for CQM] | | | | | Allergy | | | + + + + + | 001131496 | [Recorded for CQM] | | | | | Alcohol intake | | | + + + + + | 161045932 | [Recorded for CQM] | | | | | Tobacco use and | | | | | exposure | | | + + + + + | 654388877 | [Recorded for CQM] | | | | | Details of drug | | | | | misuse behavior | | | + + + + + | 075986409 | [Recorded for CQM] | | | | | Drug or Medication | | | + + + + + | [id number] | [Recorded for CQM] | | | | | Current Light | | | | | tobacco smoker | | | + + + + + | [phone] | [Recorded for CQM] | | | | | Light tobacco | | | | | smoker (finding) | | | + + + + + | [phone] | [Recorded for CQM] | | | | | Documentation of | | | | | current medications | | | | | (procedure) | | | + + + + + | [id number] | [Recorded for CQM] | | | | | Pedal pulse taking | | | | | (procedure) | | | + + + + + | 35338 | XR Foot 2V-Rt | | | [...]
--- OUTSIDE RECORDS SUMMARY | ~2019-09-25 | XMS | Clinical Summary ---
Demographics + + + | Address | General Delivery | | | [place] [address] | + + + | Home Phone | ;ext=1 | + + + | Preferred Language | Unknown | + + + | Marital Status | U | + + + | Muslim Affiliation | Unknown | + + + | Race | White | + + + | Ethnic Group | Not or | + + + Author + + + | Author | [facility] | + + + | Organization | [facility] | + + + | Address | [address] | | | [place] [address] | + + + | Phone | Unavailable | + + + Care Team Providers + +------+ + | Care Registered Pharmacy Technician Name | Role | Phone | + +------+ + | Marisel Hunt | PCP | | + +------+ + Conditions or Problems +---------+---------+---------+--------+---------+---------+---------+---------+---------+ | Problem | Problem | Onset | Status | Entry | Provide | Comment | Standar | Annotat | | Name | Code | Date | | Date | r | | d | e | | | | | | | | | Descrip | | | | | | | | | | tion | | +---------+---------+---------+--------+---------+---------+---------+---------+---------+ | LESION | [id number] | | Active | | David | | Nasal | | | OF | 06 | /29 | | /29 | Chicker | | septum | | | NASAL | (SNOMED | | | | ing [place] | | finding | | | SEPTUM | CT) | | | | | | | | +---------+---------+---------+--------+---------+---------+---------+---------+---------+ | HIP | [id number] | | Active | | Prabhakar | | Hip | | | PAIN, | 2 | / | | /26 | | | pain | | | LEFT | (SNOMED | | | | [facility]ro | | | | | | CT) | | | | oy MD | | | | +---------+---------+---------+--------+---------+---------+---------+---------+---------+ | CONTROL | [id number] | | Active | | Marisel | | Drug | | | LED | 03 | / | | / | Rubio | | therapy | | | SUBSTAN | (SNOMED | | | | RETAIL RECEIVING CLERK | | | | | CE | CT) | | | | | | finding | | | AGREEME | | | | | | | | | | NT | | | | | | | | | | SIGNED | | | | | | | | | +---------+---------+---------+--------+---------+---------+---------+---------+---------+ | NASAL | [id number] | | Active | | Marisel | | Mass of | | | MASS | 09 | / | | / | Rubio | | nose | | | | (SNOMED | | | | RETAIL RECEIVING CLERK | | | | | | CT) | | | | | | | | +---------+---------+---------+--------+---------+---------+---------+---------+---------+ | COSTOCH | [id number] | | Active | | Marisel | | Costal | | | ONDRITI | 4 | /26 | | / | Rubio | | chondri | | | S, LEFT | (SNOMED | | | | RETAIL RECEIVING CLERK | | tis | | | | CT) | | | | | | | | +---------+---------+---------+--------+---------+---------+---------+---------+---------+ | URI | [id number] | | Active | | Marisel | | Upper | | | | 9 | / | | | Rubio | | respira | | | | (SNOMED | | | | RETAIL RECEIVING CLERK | | tory | | | | CT) | | | | | | infecti | | | | | | | | | | on | | +---------+---------+---------+--------+---------+---------+---------+---------+---------+ | RIB | [id number] | | Active | | Marisel | | Rib | | | PAIN ON | | | | | Rubio | | pain | | | LEFT | (SNOMED | | | | RETAIL RECEIVING CLERK | | | | | SIDE | CT) | | | | | | | | +---------+---------+---------+--------+---------+---------+---------+---------+---------+ | POST- | [id number] | | Active | | Marisel | | Postvir | | | RAL | 04 | / | | | Rubio | | al | | | COUGH | (SNOMED | | | | RETAIL RECEIVING CLERK | | cough | | | SYNDROM | CT) | | | | | | | | | E | | | | | | | | | +---------+---------+---------+--------+---------+---------+---------+---------+---------+ | EPISTAX | [id number] | | Active | | David | | Epistax | | | IS, | 1 | /19 | | /19 | Chicker | | is | | | RECURRE | (SNOMED | | | | ing [place] | | | | | NT | CT) | | | | | | | | +---------+---------+---------+--------+---------+---------+---------+---------+---------+ | NASAL | [id number] | | Active | | David | | Nasal | | | POLYP | 5 | /19 | | /19 | Chicker | | polyp | | | | (SNOMED | | | | ing [place] | | | | | | CT) | | | | | | | | +---------+---------+---------+--------+---------+---------+---------+---------+---------+ | BRONCHI | [id number] | | Active | | David | | Bronchi | | | TIS | 4 | /19 | | /19 | [place]icker | | tis | | | | (SNOMED | | | | ing [place] | | | | | | CT) | | | | | | | | +---------+---------+---------+--------+---------+---------+---------+---------+---------+ | ACUTE | [id number] | | Active | | David | | Common | | | NASOPHA | | | | | [place] | | cold | | | RYNGITI | (SNOMED | | | | ing [place] | | | | | S | CT) | | | | | | | | +---------+---------+---------+--------+---------+---------+---------+---------+---------+ | ADJUSTM | [id number] | | Active | | Mariah | | Adjustm | | | ENT | 0 | | | | Victor | | ent | | | DISORDE | (SNOMED | | | | CSWA | | disorde | | | R WITH | CT) | | | | | | r with | | | ANXIETY | | | | | | | anxious | | | | | | | | | | mood | | +---------+---------+---------+--------+---------+---------+---------+---------+---------+ | CHRONIC | [id number] | | Active | | Faina | | Chronic | | | PAIN | | | | [place] | | pain | | | SYNDROM | (SNOMED | | | | INFRASTRUCTURE ADMINISTRATOR | | syndrom | | | E | CT) | | | | | | e | | +---------+---------+---------+--------+---------+---------+---------+---------+---------+ | PAIN | [id number] | | Active | | Faina | | Psychal | | | DISORDE | | /25 | | / | [place] | | urban | | | R | (SNOMED | | | | INFRASTRUCTURE ADMINISTRATOR | | | | | ASSOCIA | [...] | | | | | | | +---------+---------+---------+--------+---------+---------+---------+---------+---------+ | ANEMIA | [id number] | | Active | | Florecita | | Anemia | | | | 00 | / | | | Suhr | | | | | | (SNOMED | | | | RETAIL RECEIVING CLERK-C | | | | | | CT) | | | | | | | | +---------+---------+---------+--------+---------+---------+---------+---------+---------+ | APHTHOU | [id number] | | Active | | Luis | | Rosales | | | S ULCER | 05 | / | | / | page Pimentel | | s ulcer | | | OF | (SNOMED | | | | CCMA | | of | | | MOUTH | CT) | | | | | | mouth | | +---------+---------+---------+--------+---------+---------+---------+---------+---------+ | DIFFICU | [id number] | | Active | | Nayan | | Walking | | | LTY IN | 08 | /20 | | /20 | [place] | | | | | WALKING | (SNOMED | | | | r DO | | disabil | | | | CT) | | | | | | ity | | +---------+---------+---------+--------+---------+---------+---------+---------+---------+ | TOTAL | [id number] | | Active | | Florecita | | Total | | | HIP | 7 | /17 | | /17 | Suhr | | replace | | | ARTHROP | (SNOMED | | | | RETAIL RECEIVING CLERK-C | | ment of | | | LASTY, | CT) | | | | | | hip | | | LEFT | | | | | | | | | +---------+---------+---------+--------+---------+---------+---------+---------+---------+ | AVASCUL | [id number] | | Active | | Prabhakar | [...] | | | | femur | | +---------+---------+---------+--------+---------+---------+---------+---------+---------+ | HYPERTE | 8047720 | | Active | | Rudy | | Hyperte | | | NSION | 3 | | | | [place] | | nsive | | | | (SNOMED | | | | o MD | | disorde | | | | CT) | | | | | | r | | +---------+---------+---------+--------+---------+---------+---------+---------+---------+ | ELEVATE | [id number] | | Active | | Rudy | | Hypergl | | | D BLOOD | 7 | | | | [place] | | ycemia | | | SUGAR | (SNOMED | | | | o MD | | | | | | CT) | | | | | | | | +---------+---------+---------+--------+---------+---------+---------+---------+---------+ | NICOTIN | [id number] | | Active | | Prabhakar | | Nicotin | | | E | 8 | /08 | | /08 | | | e | | | ADDICTI | (SNOMED | | | | [facility] | | depende | | | ON | CT) | | | | oy MD | | nce | | +---------+---------+---------+--------+---------+---------+---------+---------+---------+ | OTHER | [id number] | | Active | | Prabhakar | | Bone | | | OSTEONE | 03 | / | | /05 | | | necrosi | | | CROSIS, | (SNOMED | | | | VanAnro | | s | | | LEFT | CT) | | | | oy MD | | | | | FEMUR | | | | | | | | | +---------+---------+---------+--------+---------+---------+---------+---------+---------+ | OPIOID | [id number] | | Active | | Phan | | Nondepe | | | ABUSE, | | | | | Middlek | | ndent | | | CONTINU | (SNOMED | | | | auff | | opioid | | | OUS | CT) | | | | RETAIL RECEIVING CLERK | | abuse, | | | | | | | | | | continu | | | | | | | | | | ous | | +---------+---------+---------+--------+---------+---------+---------+---------+---------+ | HIP | [id number] | | Active | | Phan | | Hip | | | PAIN, | 2 | /28 | | /28 | Middlek | | pain | | | LEFT | (SNOMED | | | | auff | | | | | | CT) | | | | RETAIL RECEIVING CLERK | | | | +---------+---------+---------+--------+---------+---------+---------+---------+---------+ | LESION | [id number] | | Active | | Clementina | | Plantar | | | OF | 04 | /02 | | /02 | | | nerve | | | PLANTAR | (SNOMED | | | | Reppenh | | lesion | | | NERVE | CT) | | | | agen RN | | | | +---------+---------+---------+--------+---------+---------+---------+---------+---------+ Medications + + + + + + + + | Medication | Instructio | Start Date | Stop Date | Generic | NDC | Provider | | | ns | | | Name | | | + + + + + + + + | TYLENOL 8 | 1 tablet | | | ACETAMINOP | [id number] | Nayan | | HOUR | every 4 | | | HEN | 1 | [place] | | ARTHRITIS | hours as | [...] | | | | SR[facility]C | | [place] | | | | | | | | [place] | + + + + + + + + | CHANTIX | follow | | | VARENICLIN | [id number] | Marisel | | STARTING | instructio | | | E TARTRATE | 3 | Rubio RETAIL RECEIVING CLERK | | MONTH LIZA | ns on [...] take 1tab | | | VARENICLIN | [id number] | Rudy | | MG TABS | po daily | | | E TARTRATE | 6 | Yaquelin | | | | | | | | MD | + + + + + + + + Medications Administered No information available. Allergies, Adverse Reactions, Alerts + + + + +--------+ + | Allergy Name | Reaction | Start Date | Severity | Status | Provider | | | Description | | | | | + + + + +--------+ + | SULFA | Break out in | | Critical | | Skye | | | hives | | | | Epifanio RETAIL RECEIVING CLERK | + + + + +--------+ + Results +------+------+-------+------+-------+------+ + | Date | Name | Value | Unit | Range | Flag | Descriptio | | | | | | | | n | +------+------+-------+------+-------+------+ + + + | Office Visit: 3 days post op | + + + +--------+---------+---+---+---+ + | [...] + + + | Office Visit: Ortho f/u L hip | + + + + + +---+---+---+ [...] + + + +---+---+---+ + | | ORTHIMAGIN | [place] | | | | Imaging | | | G | Orthopedic | | | | test | | | | s XR | | | | results | | | | 05/29/2017 | | | | pertinent | | | | WB AP | | | | to | | | | Pelvis, | | | | orthopedic | | | | Hip 2VGood | | | | s | | | | implant | | | | | | | | alignment | | | | | | | | and | | | | | | | | interfaces | | | | | | | | . Normal | | | | | | | | post | | | | | | | | operative | | | | | | | | changes | | | | | | | | consistent | | | | | | | | with a | | | | | | | | left MELONY | | | | | + + + +---+---+---+ + | | SMOK | Former | | | | Tobacco | | | STATUS | smoker | | | | use [facility] | + + + +---+---+---+ + + + | Office Visit: ENT followup. | + + + + + +-------+---+---+ + | | TRICYCLIC | Negative | | | | tricyclic | | | UR | | | | | antidrepre | | | | | | | | ssants, | | | | | | | | urine | + + + +-------+---+---+ + | | THC URINE | Negative | ng/mL | | | cannabinoi | [...] [facility] | + + + +-------+---+---+ + Plan of Care + + + + | Type | Date | Detail | + + + + | Pending order | | CRP | + + + + | Pending order | | CBC w/ Auto Diff | + + + + | Pending order | | Sedimentation Rate (ESR) | + + + + Procedures + + + + + | Code | Procedure Name | Date | Entry Date | + + + + + | [id number] | Overweight | | | + + + + + | CPT-51272 | XR Hip W/Pelvis | | | | | 2-3V-Lt | | | + + + + + | CPT-81614 | Urine Toxicology | | | | | Screen, Multiple | | | | | Drug Classes by | | | | | Direct Optical | | | | | Observation | | | + + + + + | [id number] | Overweight | | | + + + + + | SCT-[id number] | Overweight | | | + + + + + | CPT-J1885 | Toradol 15mg | | | + + + + + | CPT-95100 | Theraputic | | | | | Injection (IM/SubQ) | | | + + + + + | SCT-[id number] | Overweight | | | + + + + + | CPT-19654 | Theraputic | | | | | Injection (IM/SubQ) | | | + + + + + | CPT-J1885 | Toradol 15mg | | | + + + + + | CPT-15504 | Urine Toxicology | | | | | Screen, Multiple | | | | | Drug Classes by | | | | | Direct Optical | | | | | Observation | | | + + + + + | CPT-81410 | [address] Individual | | | | | Therapy (53-112) | | | | | No POS Phone | | | + + + + + | CPT-87611 | XR Hip W/Pelvis | | | | | 2-3V-Lt | | | + + + + + | CPT-44655 | Theraputic | | | | | Injection (IM/SubQ) | | | + + + + + | CPT-J1885 | Toradol 15mg | | | + + + + + | CPT-89146 | Urine Toxicology | | | | | Screen, Multiple | | | | | Drug Classes by | | | | | Direct Optical | | | | | Observation | | | + + + + + | CPT-20469 | Theraputic | | | | | Injection (IM/SubQ) | | | + + + + + | CPT-J1885 | Toradol 15mg | | | + + + + + | CPT-78370 | Theraputic | | | | | Injection (IM/SubQ) | | | + + + + + | CPT-J1885 | Toradol 15mg | | | + + + + + | CPT-86884 | Theraputic | | | | | Injection (IM/SubQ) | | | + + + + + | CPT-J1885 | Toradol 15mg | | | + + + + + | CPT-91050 | XR Hip W/Pelvis | | | | | 2-3V-Lt | | | + + + + + | CBC AUTO 79512 | CBC w/ Auto Diff | | | + + + + + | CPT-27176 | XR Hip W/Pelvis | | | | | 2-3V-Lt | | | + + + + + | CBC AUTO 10635 | CBC w/ Auto Diff | | | + + + + + | M NOS MRSA 45322 | Nose Culture, MRSA | | | | | Only | | | + + + + + | CHEM 8 86030 | Basic Metabolic | | | | | Panel | | | + + + + + | CPT-90878 | Health Risk | | | | | Assessment | | | + + + + + | GLYCO HGB 70090 | Glyco Hemoglobin, | | | | | A1C | | | + + + + + | CPT-46756 | Health Risk | | | | | Assessment | | | + + + + + | CPT-15715 | Health Risk | | | | | Assessment | | | + + + + + | U NICOTINE 34955 | Cotinine | | | + + + + + | 01304 | MR Hip-WO Con-Lt | | | + + + + + | CPT-94801 | XR Hip W/Pelvis | | | | | 2-3V-Lt | | | + + + + + | CPT- 65944 | Administration | | | | | (20398) | | | + + + + + | CPT-J1885 | Toradol Inj. 60mg | | | + + + + + | CPT-56936 | Urine Tox, multiple | | | | | drug classes | | | + + + + + | 69652 | XR Foot 2V-Rt | | | + + + + + | 25124733 | [Recorded for CQM] | | | | | Pedal pulse taking | | | | | (procedure) | | | + + + + + | [id number] | [Recorded for CQM] | | | | | Documentation of | | | | | current medications | | | | | (procedure) | | | + + + + + | [id number] | [Recorded for CQM] | | | | | Health-related | | | | | behavior | | | + + + + + | [id number] | MU Generic Patient | | | | | Encounter Service | | | | | (from patch) | | | + + + + + | [id number] | [Recorded for CQM] | | | | | Pedal pulse taking | | | | | (procedure) | | | + + + + + | [id number] | [Recorded for CQM] | | | | | Documentation of | | | | | current medications | | | | | (procedure) | | | + + + + + | [id number] | [Recorded for CQM] | | | | | Drug or Medication | | | + + + + + | [id number] | [Recorded for CQM] | | | | | Details of drug | | | | | misuse behavior | | | + + + + + | [id number] | [Recorded for CQM] | | | | | Never smoker | | | + + + + + | 732191543 | [Recorded for CQM] | | | | | Never smoked | | | | | tobacco (finding) | | | + + + + + | 308587257 | [Recorded for CQM] | | | | | Tobacco use and | | | | | exposure | | | + + + + + | 943015838 | [Recorded for CQM] | | | | | Alcohol intake | | | + + + + + | 580541501 | [Recorded for CQM] | | | | | Allergy | | | + + + + + | 647412647 | [Recorded for CQM] | | | | | Alcohol intake | | | + + + + + | 890311593 | [Recorded for CQM] | | | | | Tobacco use and | | | | | exposure | | | + + + + + | 181147646 | [Recorded for CQM] | | | | | Details of drug | | | | | misuse behavior | | | + + + + + | 057058480 | [Recorded for CQM] | | | | | Drug or Medication | | | + + + + + | [id number] | [Recorded for CQM] | | | | | Current Light | | | | | tobacco smoker | | | + + + + + | [id number] | [Recorded for CQM] | | | | | Light tobacco | | | | | smoker (finding) | | | + + + + + | [id number] | [Recorded for CQM] | | | | | Documentation of | | | | | current medications | | | | | (procedure) | | | + + + + + | [id number] | [Recorded for CQM] | | | | | Pedal pulse taking | | | | | (procedure) | | | + + + + + | 10192 | XR Foot 2V-Rt | | | [...] rate E&M | + + +-------+---------+ + Social [...]
--- OUTSIDE RECORDS SUMMARY | ~2019-09-25 | XMS | Clinical Summary ---
Demographics + + + | Address | [address] | | | [facility] [place] [address] | + + + | Home Phone | | + + + | Preferred Language | Unknown | + + + | Marital Status | S | + + + | Alevism Affiliation | Unknown | + + + | Race | White | + + + | Ethnic Group | Not or | + + + Author + + + | Author | [facility] | + + + | Organization | [facility] | + + + | Address | [address] | | | [place] [address] | + + + | Phone | Unavailable | + + + Care Team Providers + + + + | Care Spectrographic Analyst Name | Role | Phone | + + + + Unavailable | Unavailable | + + + + Conditions or Problems +---------+---------+---------+---------+---------+---------+---------+---------+---------+ | Problem [...] | | tion | | +---------+---------+---------+---------+---------+---------+---------+---------+---------+ | SPRAIN | [id number] | | Active | | Darrel | | Sprain | | | OF | | | | | [place] | | of foot | | | TARSAL | (SNOMED | | | | DPM | | | | | LIGAMEN | CT) | | | | | | | | | T OF | | | | | | | | | | LEFT | | | | | | | | | | FOOT, | | | | | | | | | | INITIAL | | | | | | | | | | | | | | | | | | | | ENCOUNT | | | | | | | | | | ER | | | | | | | | | +---------+---------+---------+---------+---------+---------+---------+---------+---------+ | PERONEA | [id number] | | Active | | Darrel | | Peronea | | | L | [id number] | | | | Neola | | l | | | TENDINI | 7 | | | | DPM | | tendini | | | TIS, | (SNOMED | | | | | | tis of | | | LEFT | CT) | | | | | | left | | | LEG | | | | | | | lower | | | | | | | | | | limb | | +---------+---------+---------+---------+---------+---------+---------+---------+---------+ | ABDOMIN | [id number] | | Active | | Gigi | | Stomach | | | AL | 9 | | | | Holling | | cramps | | | CRAMPS | (SNOMED | | | | sead | | | | | | CT) | | | | EXTENSION EDUCATOR | | | | +---------+---------+---------+---------+---------+---------+---------+---------+---------+ | PAIN IN | [id number] | | Active | | Prabhakar | | Pain in | | | RIGHT | [id number] | / | | | | | right | | | HIP | 2 | | | | [place] | | hip | | | | (SNOMED | | | | oy MD | | joint | | | | CT) | | | | | | | | +---------+---------+---------+---------+---------+---------+---------+---------+---------+ | RECTAL | [id number] | | Active | | Marisel | | Rectal | | | BLEEDIN | 2 | /11 | | /11 | Rubio | | hemorrh | | | G | (SNOMED | | | | EXTENSION EDUCATOR | | age | | | | CT) | | | | | | | | +---------+---------+---------+---------+---------+---------+---------+---------+---------+ | ANAL | [id number] | | Active | | Marielle | | Anal | jae Perez | | FISSURE | 6 | | | /30 | Kobe | | fissure | Alexander | | | (SNOMED | | | | CCMA | | | [place] | | | CT) | | | | | | | MD | +---------+---------+---------+---------+---------+---------+---------+---------+---------+ | LESION | [id number] | | Active | | David | | Nasal | | | OF | 06 | / | | / | Chicker | | septum | | | NASAL | (SNOMED | | | | ing MA | | finding | | | SEPTUM | CT) | | | | | | | | +---------+---------+---------+---------+---------+---------+---------+---------+---------+ | HIP | [id number] | | Active | | Prabhakar | | Hip | | | PAIN, | 2 | /26 | | /26 | | | pain | | | LEFT | (SNOMED | | | | [place] | | | | | | CT) | | | | oy MD | | | | +---------+---------+---------+---------+---------+---------+---------+---------+---------+ | CONTROL | [id number] | | Active | | Marisel | | Drug | | | LED | 03 | / | | / | Rubio | | therapy | | | SUBSTAN | (SNOMED | | | | EXTENSION EDUCATOR | | | | | CE | CT) | | | | | | finding | | | AGREEME | | | | | | | | | | NT | | | | | | | | | | SIGNED | | | | | | | | | +---------+---------+---------+---------+---------+---------+---------+---------+---------+ | NASAL | [id number] | | Active | | Marisel | | Mass of | | | MASS | 09 | /19 | | /19 | Rubio | | nose | | | | (SNOMED | | | | EXTENSION EDUCATOR | | | | | | CT) | | | | | | | | +---------+---------+---------+---------+---------+---------+---------+---------+---------+ | COSTOCH | [id number] | | Active | | Marisel | | Costal | | | ONDRITI | 4 | | | | Rubio | | chondri | | | S, LEFT | (SNOMED | | | | EXTENSION EDUCATOR | | tis | | | | CT) | | | | | | | | +---------+---------+---------+---------+---------+---------+---------+---------+---------+ | URI | [id number] | | Active | | Marisel | | Upper | | | | 9 | | | | Rubio | | respira | | | | (SNOMED | | | | EXTENSION EDUCATOR | | tory | | | | CT) | | | | | | infecti | | | | | | | | | | on | | +---------+---------+---------+---------+---------+---------+---------+---------+---------+ | RIB | [id number] | | Active | | Marisel | | Rib | | | PAIN ON | 02 | | | | Rubio | | pain | | | LEFT | (SNOMED | | | | EXTENSION EDUCATOR | | | | | SIDE | CT) | | | | | | | | +---------+---------+---------+---------+---------+---------+---------+---------+---------+ | POST- | [id number] | | Active | | Marisel | | Postvir | | | RAL | 04 | | | | Rubio | | al | | | COUGH | (SNOMED | | | | EXTENSION EDUCATOR | | cough | | | SYNDROM | CT) | | | | | | | | | E | | | | | | | | | +---------+---------+---------+---------+---------+---------+---------+---------+---------+ | EPISTAX | [id number] | | Active | | David | | Epistax | | | IS, | 1 | | | | Chicker | | is | | | RECURRE | (SNOMED | | | | ing MA | | | | | NT | CT) | | | | | | | | +---------+---------+---------+---------+---------+---------+---------+---------+---------+ | NASAL | [id number] | | Active | | David | | Nasal | | | POLYP | 5 | / | | | Chicker | | polyp | | | | (SNOMED | | | | ing MA | | | | | | CT) | | | | | | | | +---------+---------+---------+---------+---------+---------+---------+---------+---------+ | BRONCHI | [id number] | | Active | | David | | Bronchi | | | TIS | 4 | /19 | | / | Chicker | | tis | | | | (SNOMED | | | | ing MA | | | | | | CT) | | | | | | | | +---------+---------+---------+---------+---------+---------+---------+---------+---------+ | ACUTE | [id number] | | Active | | David | | Common | | | NASOPHA | 6 | / | | | Chicker | | cold | | | RYNGITI | (SNOMED | | | | ing MA | | | | | S | CT) | | | | | | | | +---------+---------+---------+---------+---------+---------+---------+---------+---------+ | ADJUSTM | [id number] | | Active | | Mariah | | Adjustm | | | ENT | 0 | / | | | Victor | | ent [...] mood | | +---------+---------+---------+---------+---------+---------+---------+---------+---------+ | CHRONIC | [id number] | | Active | | Fania | | Chronic | | | PAIN | 06 | / | | / | [place] | | pain | | | SYNDROM | (SNOMED | | | | UPHOLSTERY DEPARTMENT SUPERVISOR | | syndrom | | | E | CT) | | | | | | e | | +---------+---------+---------+---------+---------+---------+---------+---------+---------+ | PAIN | [id number] | | Active | | Faina | | Psychal | | | DISORDE | | / | | / | [place] | | urban | | | R | (SNOMED | | | | UPHOLSTERY DEPARTMENT SUPERVISOR | | | | | ASSOCIA [...] | | | +---------+---------+---------+---------+---------+---------+---------+---------+---------+ | ANEMIA | [id number] | | Active | | Florecita | | Anemia | | | | 00 | / | | | Suhr | | | | | | (SNOMED | | | | EXTENSION EDUCATOR-C | | | | | | CT) | | | | | | | | +---------+---------+---------+---------+---------+---------+---------+---------+---------+ | APHTHOU | 4164596 | | Active | | Charlen | | Aphthou | | | S ULCER | 05 | | | / | e Pimentel | | s ulcer | | | OF | (SNOMED | | | | CCMA | | of | | | MOUTH | CT) | | | | | | mouth | | +---------+---------+---------+---------+---------+---------+---------+---------+---------+ | DIFFICU | [id number] | | Active | | Bobby | | Walking | | | LTY IN | 08 | / | | /20 | Hersche | | | | | WALKING | (SNOMED | | | | r DO | | disabil | | | | CT) | | | | | | ity | | +---------+---------+---------+---------+---------+---------+---------+---------+---------+ | TOTAL | [id number] | | Active | | Florecita | | Total | | | HIP | 7 | /17 | | /17 | Suhr | | replace | | | ARTHROP | (SNOMED | | | | EXTENSION EDUCATOR-C | | ment of | | | LASTY, | CT) | | | | | | hip | | | LEFT | | | | | | | | | +---------+---------+---------+---------+---------+---------+---------+---------+---------+ | OSTEOAR | M19.90 | | Resolve | | Florecita | | Unspeci | | | THROSIS | (ICD-10 | / | d | /02 | Suhr | | fied | | | , | -CM) | | | | EXTENSION EDUCATOR-C | | osteoar | | | LOCALIZ [...] | | | +---------+---------+---------+---------+---------+---------+---------+---------+---------+ | FOOT | [id number] | | Resolve | | Florecita | | Foot | | | PAIN, | 7 | /15 | d | /15 | Suhr | | pain | | | RIGHT | (SNOMED | | | | EXTENSION EDUCATOR-C | | | | | | CT) | | | | | | | | +---------+---------+---------+---------+---------+---------+---------+---------+---------+ | RECTAL | [id number] | | Resolve | | Florecita | | Rectal | per | | BLEEDIN | | | d | | Suhr | | hemorrh | Sacred | | G | (SNOMED | | | | EXTENSION EDUCATOR-C | | age | Heart | | | CT) | | | | | | | [facility] | | | | | | | | | | nd ER | | | | | | | | | | visit | | | | | | | | | | 05/11/14 | +---------+---------+---------+---------+---------+---------+---------+---------+---------+ | ANAL | [id number] | | Resolve | | Florecita | | Anal | per Dr. | | FISSURE | | | d | | Suhr | | fissure | Alexander | | | (SNOMED | | | | EXTENSION EDUCATOR-C | | | [place] | | | CT) | | | | | | | MD | +---------+---------+---------+---------+---------+---------+---------+---------+---------+ | NEW | [id number] | | Resolve | | Florecita | | Procedu | | | PATIENT | 03 | / | d | / | Suhr | | re | | | | (SNOMED | | | | EXTENSION EDUCATOR-C | | carried | | | CONSULT | CT) | | | | | | out on | | | ATION | | | | | | | | | | | | | | | | | subject | | +---------+---------+---------+---------+---------+---------+---------+---------+---------+ | AVASCUL | [id number] | | Active | | Prabhakar | | Avascul | | | AR | 03 | | | | | | ar | | | [...] femur | | +---------+---------+---------+---------+---------+---------+---------+---------+---------+ | URI | [id number] | | Inactiv | | Loraine | | Upper | | | | 9 | / | e | / | Sutherland | | respira | | | | (SNOMED | | | | PA-C | | tory | | | | CT) | | | | | | infecti | | | | | | | | | | on | | +---------+---------+---------+---------+---------+---------+---------+---------+---------+ | HYPERTE | [id number] | | Active | | Rudy | | Hyperte | | | NSION | 3 | /24 | | / | Monteir | | nsive | | | | (SNOMED | | | | o MD | | disorde | | | | CT) | | | | | | r | | +---------+---------+---------+---------+---------+---------+---------+---------+---------+ | ELEVATE | [id number] | | Active | | Rudy | | Hypergl | | | D BLOOD | 7 | / | | | Monteir | | ycemia | | | SUGAR | (SNOMED | | | | o MD | | | | | | CT) | | | | | | | | +---------+---------+---------+---------+---------+---------+---------+---------+---------+ | NEW | [id number] | | Removed | | Rudy | [...] subject | | +---------+---------+---------+---------+---------+---------+---------+---------+---------+ | SCREENI | [id number] | | Resolve | | Ruyd | | Alcohol | | | NG [...] ng | | +---------+---------+---------+---------+---------+---------+---------+---------+---------+ | SCREENI | 4267392 | | Resolve | | Rudy | | Alcohol | | | NG FOR | | | d | / | Monteir | | | | | ALCOHOL | (SNOMED | | | | o MD | | consump | | | ISM | CT) | | | | | | tion | | | | | | | | | | screeni | | | | | | | | | | ng | | +---------+---------+---------+---------+---------+---------+---------+---------+---------+ | NICOTIN | 7939130 | | Active | | Prabhakar | | Nicotin | | | E | 8 | /08 | | /08 | | | e | | | ADDICTI | (SNOMED | | | | [place] | | depende | | | ON | CT) | | | | oy MD | | nce | | +---------+---------+---------+---------+---------+---------+---------+---------+---------+ | ASEPTIC | [id number] | | Inactiv | | Ann | [...] hip | | +---------+---------+---------+---------+---------+---------+---------+---------+---------+ | URI | [id number] | | Inactiv | | Phan | | Upper | | | | 9 | /19 | e | /19 | Middlek | | respira | | | | (SNOMED | | | | auff | | tory | | | | CT) | | | | EXTENSION EDUCATOR | | infecti | | | | | | | | | | on | | +---------+---------+---------+---------+---------+---------+---------+---------+---------+ | SORE | [id number] | | Inactiv | | Phan | | Pain in | | | THROAT | 03 | /19 | e | /19 | Middlek | | throat | | | | (SNOMED | | | | auff | | | | | | CT) | | | | EXTENSION EDUCATOR | | | | +---------+---------+---------+---------+---------+---------+---------+---------+---------+ | OTHER | [id number] | | Active | | Prabhakar | [...] | | | +---------+---------+---------+---------+---------+---------+---------+---------+---------+ | OPIOID | 4805415 | | Active | | Phan | | Nondepe | | | ABUSE, | | / | | / | Middlek | | ndent | | | CONTINU | (SNOMED | | | | auff | | opioid | | | OUS | CT) | | | | EXTENSION EDUCATOR | | abuse, | | | | | | | | | | continu | | | | | | | | | | ous | | +---------+---------+---------+---------+---------+---------+---------+---------+---------+ | HIP | 1914579 | | Active | | Phan | | Hip | | | PAIN, | 2 | /28 | | /28 | Middlek | | pain | | | LEFT | (SNOMED | | | | auff | | | | | | CT) | | | | EXTENSION EDUCATOR | | | | +---------+---------+---------+---------+---------+---------+---------+---------+---------+ | UPPER | [id number] | | Inactiv | | Malachi Levin | | Viral | | | RESPIRA | | | e | | Dye [...] on | | +---------+---------+---------+---------+---------+---------+---------+---------+---------+ | BRACHIA | [id number] | | Inactiv | | Malachi Levin | | Edenilson | | | L | 7 | | e | | Dye | [...] | | | +---------+---------+---------+---------+---------+---------+---------+---------+---------+ | RIB | [id number] | | Inactiv | | Malachi K | | Rib | | | PAIN | | e | | Dye | | pain | | | | (SNOMED | | | | ACNP | | | | | | CT) | | | | | | | | +---------+---------+---------+---------+---------+---------+---------+---------+---------+ | LESION | [id number] | | Active | | Clementina | | Plantar | | | OF | | | | | | | nerve | | | PLANTAR | (SNOMED | | | | Reppenh | | lesion | | | NERVE | CT) | | | | agen RN | | | | +---------+---------+---------+---------+---------+---------+---------+---------+---------+ | OSTEOAR | M19.90 | | Removed | | Clementina | | Unspeci | | | THROSIS | (ICD-10 | /02 | | /02 | | | fied [...] | | | +---------+---------+---------+---------+---------+---------+---------+---------+---------+ | ANAL | [id number] | | Removed | | Karissa | | Anal | per | | FISSURE | 6 | | | | Sea | | fissure | Alexander | | | (SNOMED | | | | RN | | | [place] | | | CT) | | | | | | | MD | +---------+---------+---------+---------+---------+---------+---------+---------+---------+ | RECTAL | [id number] | | Removed | | Rodrigo | | Rectal | per | | BLEEDIN | 2 | | | | Steiner | | hemorrh | Sacred [...] | 05/11/14 | +---------+---------+---------+---------+---------+---------+---------+---------+---------+ | SCREENI | [id number] | | Removed | | Juan | [...] ng | | +---------+---------+---------+---------+---------+---------+---------+---------+---------+ | SCREENI | 4419364 | | Removed | | Andiry | | Alcohol | | | NG FOR | | | | | Padovic | | | | | ALCOHOL | (SNOMED | | | | h EXTENSION EDUCATOR | | consump | | | ISM | CT) | | | | | | tion | | | | | | | | | | screeni | | | | | | | | | | ng | | +---------+---------+---------+---------+---------+---------+---------+---------+---------+ | FOOT | [id number] | | Removed | | Skye | | Foot | | | PAIN, | | /15 | | /15 | Epifanio | | pain | | | RIGHT | (SNOMED | | | | EXTENSION EDUCATOR | | | | | | CT) | | | | | | | | +---------+---------+---------+---------+---------+---------+---------+---------+---------+ Medications + + + + + + + + | Medication | Instructio | Start Date | Stop Date | Generic | NDC | Provider | | | ns | | | Name | | | + + + + + + + + | NORCO | one tab by | | | HYDROCODON | [id number] | Darrel | | 5-325 MG | mouth QHS | | | E-ACETAMIN | 1 | Neola DPM | | TABS | PRN pain | | | OPHEN | | | + + + + + + + + | PERCOCET | | | | OXYCODONE- | [id number] | Skye | | 5-325 MG | | | | ACETAMINOP | 0 | Bubba | | TABS | | | | HEN | | CCMA | + + + + + + + + | CLINDAMYCI | | | | CLINDAMYCI | 1290303426 | Skye | | N HCL 300 | | | | N HCL | 1 | Bubba | | MG CAPS | | | | | | CCMA | + + + + + + + + | ULTRAM 50 | 1 by mouth | | | TRAMADOL | [id number] | Gigi | | MG TABS | every 6 | | | HCL | 0 | [place] | | | hours as | | | | | d EXTENSION EDUCATOR | | | needed | | | | | | + + + + + + + + | BENTYL 10 | 1 by mouth | | | DICYCLOMIN | | Gigi | | MG ORAL | 4 times a | | | E HCL | | [place] | | CAPSULE | day as | | | | | d EXTENSION EDUCATOR | | | needed for | | | | | | | | abdomen | | | | | | | | cramping | | | | | | + + + + + + + + | FLEET | Insert 1 | | | BISACODYL | [id number] | Marisel | | BISACODYL | enema into | | | | 6 | Rubio EXTENSION EDUCATOR | | 10 MG/30ML | rectum | | | | | | | ENEM | may repeat | | | | | | | | next day | | | | | | | | PRN | | | | | | + + + + + + + + | CSA | | | | CSA | | Carissa Baker | | [facility] | | | | [facility] | | CCMA, | | | | | | | | Case | | | | | | | | Residential Therapist | + + + + + + + + | CARDIZEM | 1 by mouth | | | DILTIAZEM | [id number] | Marisel | | 60 MG TABS | twice | | | HCL | 7 | Rubio EXTENSION EDUCATOR | | | daily for | | | | | | | | 8 weeks | | | | | | + + + + + + + + | FLEET | Insert 1 | | | BISACODYL | [id number] | Marisel | | BISACODYL | enema into | | | | 6 | Rubio EXTENSION EDUCATOR | | 10 MG/30ML | rectum | | | | | | | ENEM | may repeat | | | | | | | | next day | | | | | | | | PRN | | | | | | + + + + + + + + | MIRALAX | Mix 17gm | | | POLYETHYLE | [id number] | Marisel | | POWD | of powder | | | NE GLYCOL | 2 | Rubio EXTENSION EDUCATOR | | | with | | | 3350 | | | | | liquid per | | | | | | | | day | | | | | | + + + + + + + + | TRAMADOL | Take 1 tab | | | TRAMADOL | [id number] | Davi | | HCL 50 MG | q 6 hours | | | HCL | 1 | Edison GARCIA | | TABS | prn pain | | | | | | + + + + + + + + | COLACE 100 | Take 1 bid | | | DOCUSATE | [id number] | Davi | | MG CAPS | prn | | | SODIUM | 0 | Edison GARCIA | | | constipati | | | | | | | | on | | | | | | + + + + + + + + | [facility] MILK | 5 ml po | | | MAGNESIUM | [id number] | Davi | | OF | mid prn | | | HYDROXIDE | 6 | Edison DO | | MAGNESIA | constipati | | | | | | | 400 MG/5ML | on | | | | | | | SUSP | | | | | | | + + + + + + + + | OXYCODONE- | 1 tab po q | | | OXYCODONE- | [id number] | Davi | | ACETAMINOP | 6 hrs prn | | | ACETAMINOP | 5 | Edison DO | | HEN 5-325 | rectal | | | HEN | | | | MG TABS | pain | | | | | | + + + + + + + + | RECTIV 0.4 | 1 inch | | | NITROGLYCE | 8649425818 | Davi | | % OINT | film | | | RIN | 0 | Edison DO | | | intra-anal | | [...] | 1 | | | HYDROCORTI | 8792664524 | Davi | | 25 25 MG | suppositor | | | SONE | 2 | Hoyne DO | | RECTAL | y per | | | ACETATE | | | | SUPPOSITOR | rectum q | | | | | | | Y | 12 hrs for | | | [...] take 1tab | | | VARENICLIN | 6187511105 | Davi | | MG TABS | po daily | | | E TARTRATE | 6 | Hoyne DO | + + + + + + + + | CHANTIX | follow | | | VARENICLIN | 6194318956 | Davi | | STARTING | instructio [...] 1 inch | | | NITROGLYCE | 9249276046 | Darius | | % OINT | [...] 1 tab | | | TRAMADOL | [id number] | Marisel | | HCL 50 MG | q 6 hours | | | HCL | 1 | Rubio EXTENSION EDUCATOR | | TABS | prn pain | | | | | | + + + + + + + + | COLACE 100 | Take 1 bid | | | DOCUSATE | [id number] | Marisel | | MG CAPS | prn | | | SODIUM | 0 | Rubio EXTENSION EDUCATOR | | | constipati | | | | | | | | on | | | | | | + + + + + + + + | [facility] MIL[facility] | 5 ml po | | | MAGNESIUM | 2588544848 | Marisel | | OF | mid prn | | | HYDROXIDE | 6 | Rubio EXTENSION EDUCATOR | | MAGNESIA | constipati | | | | | | | 400 MG/5ML | on | | | | | | | SUSP | | | | | | | + + + + + + + + | ANECREAM5 | thin film | | | LIDOCAINE | 0936645524 | Darius | | 5 % CREA | to rectum | | | (ANORECTAL | 5 | Niels | | | tid prn | | | ) | | PA-C | | | pain | | | | | | + + + + + + + + | OXYCODONE- | 1 tab po q | | | OXYCODONE- | [id number] | Darius | | ACETAMINOP | 6 hrs prn | | | ACETAMINOP | 5 | Niels | | HEN 5-325 | rectal | | | HEN | | PA-C | | MG TABS | pain | | | | | | + + + + + + + + | ANACAINE | thin film | | | BENZOCAINE | 4900907723 | Darius | | 10 % OINT [...] | 1 | | | HYDROCORTI | [id number] | Darius | | 25 25 MG | suppositor | | | SONE | 2 | Niels | | RECTAL | y per | | | ACETATE | | PA-C | | SUPPOSITOR | rectum q | | | | | | | Y | 12 hrs for | | | [...] 1 by | | | OXYCODONE- | [id number] | Marisel | | 5-325 MG | mouth two | | | ACETAMINOP | 0 | Rubio EXTENSION EDUCATOR | | TABS | times per | [...] 1 spray | | | FLUTICASON | 8452567315 | Marisel | | ALLERGY | eash | | | E | 2 | Rubio EXTENSION EDUCATOR | | RELIEF 50 | nostril | [...] 1 by | | | OXYCODONE- | [id number] | Marisel | | 5-325 MG | mouth two | | | ACETAMINOP | 0 | Rubio EXTENSION EDUCATOR | | TABS | times per | [...] 1 by | | | TRAMADOL | [id number] | Marisel | | HCL 50 MG | mouth | | | HCL | 1 | Rubio EXTENSION EDUCATOR | | TABS | every 6 | | | | | | | | hours | | | | | | + + + + + + + + | PSEUDOEPHE | 1-2 | | | PSEUDOEPHE | [id number] | Marisel | | DRINE HCL | tablets | | | DRINE HCL | 2 | Rubio EXTENSION EDUCATOR | | 30 MG TABS | every [...] 1 to | | | GUAIFENESI | [id number] | Marisel | | N 200 MG | 2 tablets | | | N | 0 | Rubio EXTENSION EDUCATOR | | TABS | by mouth | [...] Take 1 | | | AMITRIPTYL | [id number] | Marisel | | MG ORAL | tab po QHS | | | INE HCL | 0 | Rubio EXTENSION EDUCATOR | | TABLET | | | | | | | + + + + + + + + | PSEUDOEPHE | 1-2 | | | PSEUDOEPHE | 3356075321 | Marisel | | DRINE HCL | tablets | | | DRINE HCL | 2 | Rubio EXTENSION EDUCATOR | | 30 MG TABS | every [...] 1 by | | | TRAMADOL | [id number] | Marisel | | HCL 50 MG | mouth | | | HCL | 1 | Rubio EXTENSION EDUCATOR | | TABS | every 6 | | | | | | | | hours | | | | | | + + + + + + + + | CHANTIX | follow | | | VARENICLIN | 5861981846 | Marisel | | STARTING | instructio | | | E TARTRATE | 3 | Rubio EXTENSION EDUCATOR | | MONTH LIZA | ns on [...] | 1-2 | | | PSEUDOEPHE | 2974295550 | Marisel | | DRINE HCL | tablets | | | DRINE HCL | 2 | Rubio EXTENSION EDUCATOR | | 30 MG TABS | every [...] 1 to | | | GUAIFENESI | [id number] | Marisel | | N 200 MG | 2 tablets | | | N | 0 | Rubio EXTENSION EDUCATOR | | TABS | by mouth | [...] 1 spray | | | FLUTICASON | [id number] | Marisel | | ALLERGY | eash | | | E | 2 | Rubio EXTENSION EDUCATOR | | RELIEF 50 | nostril | | | PROPIONATE | | | | MCG/ACT | once a day | | | | | | | SUSP | | | | | | | + + + + + + + + | TRAMADOL | 1-2 TAB | | | TRAMADOL | [id number] | David | | HCL 50 MG | BID PRN | | | HCL | 1 | Chickering | | TABS | PAIN | | | | | MA | + + + + + + + + | NORCO | 1tab by | | | HYDROCODON | [id number] | David | | 7.5-325 MG | [...] tab BID | | | CYCLOBENZA | [id number] | David | | YESSY HCL | PRN muscle | | | YESSY HCL | 1 | Chickering | | 10 MG TABS | pain | | | | | MA | + + + + + + + + | [facility] LYSINE | take 1 tab | | | LYSINE | [id number] | David | | 1000 MG | daily | | | | 9 | Chickering | | ORAL | | | | | | MA | | TABLET | | | | [...] | prn | | | MAGNESIUM | [id number] | David | | OF | constipati [...] | 17grams | | | POLYETHYLE | [id number] | David | | POWD | mixed [...] Apply prn | | | BALSAM | [id number] | David | | [phone] | to lower | | | JOSEPH-GEOVANY | 3 | Chickering | | MG/0.82ML | lip for | | | R OIL | | MA | | EXTERNAL | pain or | | | | | | | AEROSOL | irritation | | | | | | | | . | | | | | | + + + + + + + + | BISAC-EVAC | 1 | | | BISACODYL | [id number] | David | | 10 MG | suppositor | | | | 1 | Chickering | | RECTAL | y QHS PRN | | | | | MA | | SUPPOSITOR | constipati | | | | | | | Y | on | | | | | | + + + + + + + + | COUMADIN 4 | 1 tab | | | WARFARIN | [id number] | David | | MG TABS | daily | | | SODIUM | 0 | Chickering | | | | | | | | MA | + + + + + + + + | COLACE 100 | 1 cap BID | | | DOCUSATE | [id number] | David | | MG CAPS | | | | SODIUM | 0 | Chickering | | | | | | | | MA | + + + + + + + + | LISINOPRIL | 1 tab one | | | LISINOPRIL | [id number] | David | | 20 MG | time per | | | | 1 | Chickering | | TABS | day | | | | | MA | + + + + + + + + | ELAVIL 25 | Take 1 | | | AMITRIPTYL | [id number] | Rudy | | MG ORAL | tab po QHS | | | INE HCL | 0 | Yaquelin | | TABLET | | | | | | MD | + + + + + + + + | TRAMADOL | 1-2 TAB | | | TRAMADOL | [id number] | Rudy | | HCL 50 MG | BID PRN | | | HCL | 1 | Yaquelin | | TABS | PAIN | | | | | MD | + + + + + + + + | TRAMADOL | 1 TAB BID | | | TRAMADOL | [id number] | Rudy | | HCL 50 MG | PRN PAIN | | | HCL | 1 | Yaquelin | | TABS | | | | | | MD | + + + + + + + + | NORCO | 1tab by | | | HYDROCODON | [id number] | Rudy | | 7.5-325 MG | [...] TAB Q6 | | | TRAMADOL | [id number] | Prabhakar | | HCL 50 MG | HRS PRN | | | HCL | 1 | VanAnrooy | | TABS | PAIN | | | | | MD | + + + + + + + + | NORCO | 1tab po | | | HYDROCODON | [id number] | Rudy | | 7.5-325 MG | [...] tab po | | | HYDROCODON | [id number] | Karma | | 5-325 MG | QD | | | E-ACETAMIN | 1 | Berenice | | TABS | | | | OPHEN | | NCMA | + + + + + + + + | TRAMADOL | take 1 tab | | | TRAMADOL | [id number] | Karma | | HCL 50 MG | nightly | | | HCL | 1 | Berenice | | TABS | | | | | | NCMA | + + + + + + + + | NORCO | 1 tab po | | | HYDROCODON | [id number] | Rudy | | 5-325 MG | QD | | | E-ACETAMIN | 1 | Yaquelin | | TABS | | | | OPHEN | | MD | + + + + + + + + | TRAMADOL | take 1 tab | | | TRAMADOL | [id number] | Rudy | | HCL 50 MG | nightly | | | HCL | 1 | Yaquelin | | TABS | | | | | | MD | + + + + + + + + | NORCO | 1 every 8 | | | HYDROCODON | [id number] | Rudy | | 5-325 MG | hours as | | | E-ACETAMIN | 1 | Yaquelin | | TABS | needed | | | OPHEN | | MD | + + + + + + + + | OXYCODONE | 1 tab q 4 | | | OXYCODONE | [id number] | Karma | | HCL 15 MG | hrs PRN | | | HCL | 1 | Berenice | | TABS | pain | | | | | NCMA | + + + + + + + + | NORCO | 1 every 8 | | | HYDROCODON | [id number] | Prabhakar | | 5-325 MG | hours as | | | E-ACETAMIN | 1 | Natividadoy | | TABS | needed | | | OPHEN | | MD | + + + + + + + + | CYCLOBENZA | 1 tab BID | | | CYCLOBENZA | [id number] | Florecita | | YESSY HCL | PRN muscle | | | YESSY HCL | 1 | Suhr EXTENSION EDUCATOR-C | | 10 MG TABS | pain | | | | | | + + + + + + + + | PERCOCET | 1-2 tab q | | | OXYCODONE- | [id number] | Florecita | | 7.5-325 MG | 4 hrs for | | | ACETAMINOP | 0 | Suhr EXTENSION EDUCATOR-C | | TABS | pain, hold | | | HEN | | | | | if | | | | | | | | somnolent | | | | | | | | or asleep. | | | | | | + + + + + + + + | OXYCODONE | 1 tab q 4 | | | OXYCODONE | 8580501933 | Florecita | | HCL 15 MG | hrs PRN | | | HCL | 1 | Suhr EXTENSION EDUCATOR-C | | TABS | pain | | | | | | + + + + + + + + | [facility]YSINE | take 1 tab | | | LYSINE | 1127903044 | Rudy | | 1000 MG | daily | | | | 9 | Yaquelin | | ORAL | | | | | | MD | | TABLET | | | | [...] take 1tab | | | VARENICLIN | 7737462056 | Rudy | | MG TABS | po daily | | | E TARTRATE | 6 | Yaquelin | | | | | | | | MD | + + + + + + + + | [facility] MILK | prn | | | MAGNESIUM | [id number] | Melvina | | OF | constipati [...] | 17grams | | | POLYETHYLE | 4824611557 | Melvina | | POWD | mixed in | | | NE GLYCOL | 2 | Margarito [place] | | | 6-8ounces | | | [...] | | N HOSE | | Margarito [place] | | MEN'S | morning | | | MEN'S | | | | | and take | | | | | | | | off at | | | | | | | | bedtime | | | | | | + + + + + + + + | CYNTHIADERM | Apply prn | | | BALSAM | [id number] | Bobby | | 650-72.5 | to lower | | | JOSEPH-GEOVANY | 3 | [place] | | MG/0.82ML | lip for | | | R OIL | | DO | | EXTERNAL | pain or | | | | | | | AEROSOL | irritation | | | | | | | | . | | | | | | + + + + + + + + | PERCOCET | 1-2 tab q | | | OXYCODONE- | [id number] | Florecita | | 7.5-325 MG | 4 hrs for | | | ACETAMINOP | 0 | Suhr EXTENSION EDUCATOR-C | | TABS | pain, hold | | | HEN | | | | | if | | | | | | | | somnolent | | | | | | | | or asleep. | | | | | | + + + + + + + + | TYLENOL 8 | 1 tablet | | | ACETAMINOP | [id number] | Bobby | | HOUR | every 4 | | | HEN | 1 | [place] | | ARTHRITIS | hours as | | | | | DO | | PAIN 650 | needed for | | | | | | | MG CR-TABS | | | | | | | | | pain/fever | | | | | | + + + + + + + + | PERCOCET | 1-2 tab q | | | OXYCODONE- | [id number] | Florecita | | 7.5-325 MG | 4 hrs PRN | | | ACETAMINOP | 0 | Suhr EXTENSION EDUCATOR-C | | TABS | pain, | | | HEN | | | | | dispense | | | | | | | | #84 | | | | | | + + + + + + + + | BISAC-EVAC | 1 | | | BISACODYL | 8447593295 | Florecita | | 10 MG | suppositor | | | | 1 | Suhr EXTENSION EDUCATOR-C | | RECTAL | y QHS PRN | | | | | | | SUPPOSITOR | constipati | | | | | | | Y | on | | | | | | + + + + + + + + | COUMADIN 4 | 1 tab | | | WARFARIN | 8735028993 | Florecita | | MG TABS | daily | | | SODIUM | 0 | Suhr EXTENSION EDUCATOR-C | + + + + + + + + | COLACE 100 | 1 cap BID | | | DOCUSATE | [id number] | Florecita | | MG CAPS | | | | SODIUM | 0 | Suhr EXTENSION EDUCATOR-C | + + + + + + + + | BI-MART | | | | BI-MART | | Florecita | | RSBG | | | | RSBG | | Suhr EXTENSION EDUCATOR-C | + + + + + + + + | CHANTIX 1 | 1 tab two | | | VARENICLIN | 3346050282 | Karma | | MG TABS | times per | | | E TARTRATE | 6 | Berenice | | | day | | | | | NCMA | + + + + + + + + | TESSALON | Take three | | | BENZONATAT | 1770285400 | Karma | | PERLES 100 | times a | | | E | 1 | Berenice | | MG CAPS | day as | | | | | NCMA | | | needed for | | [...] 1 tab | | | HYDROCODON | [id number] | Karma | | E-ACETAMIN | po | | | E-ACETAMIN | 1 | Berenice | | OPHEN | BID/PRN | | | OPHEN | | NCMA | | 7.5-325 MG | | | | | | | | TABS | | | | | | | + + + + + + + + | LISINOPRIL | 1 tab one | | | LISINOPRIL | 1700217389 | Rudy | | 20 MG | time per | | | | 1 | Yaquelin | | TABS | day | | | | | MD | + + + + + + + + | TESSALON | Take three | | | BENZONATAT | 8349726463 | Loraine | | PERLES 100 | times a [...] 1 tab | | | HYDROCODON | [id number] | Melvina | | E-ACETAMIN | po [...] 1tab po | | | VARENICLIN | 7144072235 | Rudy | | MG TABS | bid | | | E TARTRATE | 6 | Yaquelin | | | | | | | | MD | + + + + + + + + | HYDROCODON | Take 1 tab | | | HYDROCODON | 8010130648 | Rudy | | E-ACETAMIN | po [...] 2tabs po | | | VARENICLIN | 8708910402 | Rudy | | MG TABS | qd | | | E TARTRATE | 6 | Yaquelin | | | | | | | | MD | + + + + + + + + | LISINOPRIL | 1tab po qd | | | LISINOPRIL | 2187465265 | Rudy | | 20 MG | | | | | 1 | Yaquelin | | TABS | | | | | | MD | + + + + + + + + | TRAMADOL | 1 TAB Q6 | | | TRAMADOL | 2515406532 | Rudy | | HCL 50 MG [...] 3-4 per | | | OXYCODONE | 2357498933 | Rudy | | HCL 10 MG | day | | | HCL | 1 | Yaquelin | | TABS | | | | | | MD | + + + + + + + + | IBUPROFEN | three | | | IBUPROFEN | 3559627289 | Rudy | | 600 MG | times per | | | | 0 | Yaquelin | | TABS | day | | | | | MD | + + + + + + + + | TRAMADOL | 1 TAB Q6 | | | TRAMADOL | [id number] | Prabhakar | | HCL 50 MG | HRS PRN | | | HCL | 1 | VanAnrooy | | TABS | PAIN | | | | | MD | + + + + + + + + | LISINOPRIL | one time | | | LISINOPRIL | | Karma | | 20MG | per day | | | 20MG | | Berenice | | | | | | | | NCMA | + + + + + + + + | OXYCODONE | 3-4 per | | | OXYCODONE | 8934848389 | Karma | | HCL 10 MG | day | | | HCL | 1 | Berenice | | TABS | | | | | | NCMA | + + + + + + + + | GUAIFENESI | 1 tab | | | GUAIFENESI | 9520462966 | Karma | | N 400 MG | every 4 | | | N | 0 | [place] | | TABS | hours as | | | | | NCMA | | | needed for | | | | | | | | | | | | | | | | cough/yaw | | | | | | | | estion | | | | | | + + + + + + + + | CEPACOL | 1 lozenge | | | BENZOCAINE | 9491668755 | Karma | | SORE | every 2 | | | -MENTHOL | 0 | Berenice | | THROAT | hours as | | | | | NCMA | | 10-2.1 MG | needed for | | | | | | | LOZG | sore | | | | | | | | throat | | | | | | + + + + + + + + | NORCO | 4-6 per | | | HYDROCODON | 3066555685 | Karma | | 5-325 MG | day | | | E-ACETAMIN | 1 | Berenice | | TABS | | | | OPHEN | | NCMA | + + + + + + + + | BI-MART | | | | BI-MART | | Valery | | RSBG | | | | RSBG | | Vancill | | | | | | | | CCMA | + + + + + + + + | GUAIFENESI | 1 tab | | | GUAIFENESI | 1599092669 | Phan | | N 400 MG | every 4 | | | N | 0 | [place] | | TABS | hours as | | | | | f EXTENSION EDUCATOR | | | needed for | | | | | | | | | | | | | | | | cough/yaw | | | | | | | | estion | | | | | | + + + + + + + + | CEPACOL | 1 lozenge | | | BENZOCAINE | 1508351313 | Phan | | SORE | every 2 | | | -MENTHOL | 0 | [place] | | THROAT | hours as | | | | | f EXTENSION EDUCATOR | | 10-2.1 MG | needed for | | | | | | | LOZG | sore | | | | | | | | throat | | | | | | + + + + + + + + | IBUPROFEN | three | | | IBUPROFEN | 9359621033 | Prabhakar | | 600 MG | times per | | | | 0 | VanMarinerotim | | TABS | day | | | | | MD | + + + + + + + + | NORCO | 4-6 per | | | HYDROCODON | 1073352077 | Prabhakar | | 5-325 MG | day | | | E-ACETAMIN | 1 | Uzma | | TABS | | | | [...] | | | | SCHEDULED | | Uzma | | 2 DRUGS | | | | 2 DRUGS | | MD | | PER | | | | PER | | | | | | | | | | | | S. | | | | S. | | | + + + + + + + + | OXYCODONE- | Take 1 tab | | | OXYCODONE- | 1424432994 | Phan | | ACETAMINOP | by mouth | | | ACETAMINOP | 5 | [place] | | HEN 5-325 | three | | | HEN | | f EXTENSION EDUCATOR | | MG TABS | times per [...] 1 tab | | | PSEUDOEPHE | [id number] | Phan | | DRINE HCL | by mouth | | | DRINE HCL | 2 | Middlekauf | | 30 MG TABS | four times | | | | | f EXTENSION EDUCATOR | | | per day | | [...] Inhale 2 | | | ALBUTEROL | 1590907985 | Phan | | 108 (90 | puffs | | | SULFATE | 2 | [place] | | Base) | every 4 | | | | | f EXTENSION EDUCATOR | | MCG/ACT | hours as | [...] 1 tablet | | | MELOXICAM | 0600656709 | Phan | | MG TABS | by mouth | | | | 1 | [place] | | | daily. | | | | | f EXTENSION EDUCATOR | | | Must last | | [...] Take 3 | | | PREDNISONE | 6363641678 | Malachi Levin | | 20 MG [...] 1 tab | | | PSEUDOEPHE | 8510040699 | Malachi Levin | | DRINE HCL [...] Inhale 2 | | | ALBUTEROL | 9567054639 | Malachi Levin | | 108 (90 [...] Take 1 | | | DOXYCYCLIN | 2113077162 | Malachi Levin | | E HYCLATE [...] tab by | | | CLINDAMYCI | 5275611355 | Malachi Levin | | N HCL 150 | mouth [...] Take 1 | | | GABAPENTIN | 8475381009 | Malachi Levin | | 300 MG [...] 1 tab | | | CYCLOBENZA | 1239340825 | Malachi Levin | | YESSY HCL [...] 1 tab | | | OXYCODONE- | 1926739368 | Malachi Levin | | ACETAMINOP | [...] po bid | | | HYDROCODON | 3633307376 | Cyndi Crowley | | E-ACETAMIN | [...] D RATHER | | | | | 1.04.14 | | | | | | | | signed | | | | | | | | 1.2.15 | | | | | | + + + + + + + + | UDS | 1.2.15 | | | UDS | | [place] | | | consistent | | | | | NCMA | + + + + + + + + | PAIN | signed | | | PAIN | | [place] [place] | | AGREEMENT | 1.2.15 | | | AGREEMENT | | NCMA | | D RATHER | | | | D RATHER | | | + + + + + + + + | HYDROCODON | 1 po bid | | | HYDROCODON | [id number] | Tommy | | E-ACETAMIN | prn [...] tab by | | | CLINDAMYCI | 2506072746 | Tommy | | N HCL 150 [...] 1 tablet | | | MELOXICAM | 8702782849 | Jovany | | MG TABS | [...] | | | | | | | EXTENSION EDUCATOR | + + + + + + + + | IBUPROFEN | 4 By mouth | | | IBUPROFEN | 3970437896 | Andriy | | 200 MG | 3 times a | | | | 1 | Padovich | | TABS | day | | | | | EXTENSION EDUCATOR | + + + + + + [...] | | | | | | | EXTENSION EDUCATOR | + + + + + + [...] | | | | | Active | Middlen[place]uff | | | | | | | EXTENSION EDUCATOR | +---------+ + + + + + | CODEINE | Itch | | Critical | No Longer | Skye | | | | | | Active | Epifanio EXTENSION EDUCATOR | +---------+ + + + + + | SULFA | Break out in | | Critical | | Skye | | | hives | | | | Epifanio EXTENSION EDUCATOR | +---------+ + + + + + Results No information available. Plan of Care + + + + | Type | Date | Detail | + + + + | Referral | | GI Consult | | | | DO Jcarlos Cuba IV, | | | | [address] | | | | Suite [facility], [place], [place], | | | | [address] | | | | | + + + + +---+ + | | Referral excluded from report: | +---+ + + + + + | Referral | | GI Consult | | | | DO Jcarlos Cuba IV, | | | | [address] | | | | [address], [place], [place], | | | | [address] | | | | | + + + + | Referral | | Other Referral | | | | Hugo Matta, [address] | | | | [address], | | | | [place], [address] | | | | | + + + + +---+ + | | Referral excluded from report: | +---+ + + + + + | Referral | | Other Referral | | | | Other Provider, Specify | | | | Provider in Instructions | + + + + Procedures + + + + + | Code | Procedure Name | Date | Entry Date | + + + + + | [id number] | Overweight | | | + + + + + | [id number] | Overweight | | | + + + + + | [id number] | XR Hip W/Pelvis | | | | | 2-3V-Rt | | | + + + + + | [id number] | Overweight | | | + + + + + | [id number] | Overweight | | | + + + + + Vital Signs + + +-------+---------+ + | Date | Name | Value | Unit | Description | + + +-------+---------+ + | | BMI (Body Mass | 32.78 | kg/m2 | Body Mass Index | [...] +-------+---------+ + | | BP Systolic | 139 | mm[Hg] | blood pressure, | | | | | | systolic | + + +-------+---------+ + | | BP Systolic | 139 | mm[Hg] | blood pressure, | | | | | | systolic, | | | | | | second | | | | | | observation | + + +-------+---------+ + | | Body | 99.7 | [degF] | temperature E&M | | | Temperature | | | | + + +-------+---------+ + | | Height | 71 | [in_us] | height E&M | + + +-------+---------+ + | | Weight Measured | 234.2 | [lb_av] | weight E&M | + + +-------+---------+ + | | BMI (Body Mass | 32.47 | kg/m2 | Body Mass Index | [...] + +-------+---------+ + | | Body | 97.3 | [degF] | temperature E&M | | | Temperature | | | | + + +-------+---------+ + | | Heart Rate | 78 | /min | pulse rate E&M | + + +-------+---------+ + | | Height | 71 | [in_us] | height E&M | + + +-------+---------+ + | | Weight Measured | 232.0 | [lb_av] | weight E&M | + [...]
--- OUTSIDE RECORDS SUMMARY | ~2019-09-25 | XMS | Clinical Summary ---
Demographics + + + | Address | [address] | | | [place] [address] | + + + | Home Phone | ;[phone] | + + + | Preferred Language | Unknown | + + + | Marital Status | U | + + + | Yarsani Affiliation | Unknown | + + + | Race | White | + + + | Ethnic Group | Not or | + + + Author + + + | Author | [facility] | + + + | Organization | [facility] | + + + | Address | [address] | | | [place] [address] | + + + | Phone | Unavailable | + + + Care Team Providers + +------+ + | Care Conventional Underwriter Name | Role | Phone | + [...] | | tion | | +---------+---------+---------+---------+---------+---------+---------+---------+---------+ | ADJUSTM | [id number] | | Active | | Mariah | [...] mood | | +---------+---------+---------+---------+---------+---------+---------+---------+---------+ | CHRONIC | [id number] | | Active | | Faina | | Chronic | | | PAIN | | | | | [place] | | pain | | | SYNDROM | (SNOMED | | | | JUNIOR ACCOUNTING CLERK | | syndrom | | | E | CT) | | | | | | e | | +---------+---------+---------+---------+---------+---------+---------+---------+---------+ | PAIN | [id number] | | Active | | Faina | | Psychal | | | DISORDE | | | | / | [place] | | urban | | | R | (SNOMED | | | | JUNIOR ACCOUNTING CLERK | | | | | ASSOCIA | [...] | | | +---------+---------+---------+---------+---------+---------+---------+---------+---------+ | ANEMIA | [id number] | | Active | | Florecita | | Anemia | | | | 00 | | | | Suhr | | | | | | (SNOMED | | | | ENFORCEMENT MANAGER-C | | | | | | CT) | | | | | | | | +---------+---------+---------+---------+---------+---------+---------+---------+---------+ | APHTHOU | [id number] | | Active | | Luis | | Aphthou | | | S ULCER | 05 | | | | page Pimentel | | s ulcer | | | OF | (SNOMED | | | | MA | | of | | | MOUTH | CT) | | | | | | mouth | | +---------+---------+---------+---------+---------+---------+---------+---------+---------+ | DIFFICU | [id number] | | Active | | Bobby | | Walking | | | LTY IN | 08 | /20 | | / | Hersche | | | | | WALKING | (SNOMED | | | | r DO | | disabil | | | | CT) | | | | | | ity | | +---------+---------+---------+---------+---------+---------+---------+---------+---------+ | TOTAL | [id number] | | Active | | Florecita | | Total | | | HIP | 7 | | | | Suhr | | replace | | | ARTHROP | (SNOMED | | | | ENFORCEMENT MANAGER-C | | ment of | | | LASTY, | CT) | | | | | | hip | | | LEFT | | | | | | | | | +---------+---------+---------+---------+---------+---------+---------+---------+---------+ | OSTEOAR | M19.90 | | Resolve | | Florecita | | Unspeci | | | THROSIS | (ICD-10 | | d | / | Suhr | | fied | | | , | -CM) | | | | ENFORCEMENT MANAGER-C | | osteoar | | | [...] | | | +---------+---------+---------+---------+---------+---------+---------+---------+---------+ | FOOT | [id number] | | Resolve | | Florecita | | Foot | | | PAIN, | 7 | /15 | d | /15 | Suhr | | pain | | | RIGHT | (SNOMED | | | | ENFORCEMENT MANAGER-C | | | | | | CT) | | | | | | | | +---------+---------+---------+---------+---------+---------+---------+---------+---------+ | RECTAL | [id number] | | Resolve | | Florecita | | Rectal | per | | BLEEDIN | 2 | /15 | d | /15 | Suhr | | hemorrh | Sacred | | G | (SNOMED | | | | ENFORCEMENT MANAGER-C | | age | Heart | | | CT) | | | | | | | [facility] | | | | | | | | | | nd ER | | | | | | | | | | visit | | | | | | | | | | 05/11/14 | +---------+---------+---------+---------+---------+---------+---------+---------+---------+ | ANAL | [id number] | | Resolve | | Florecita | | Anal | per . | | FISSURE | 6 | | d | | Suhr | | fissure | Alexander | | | (SNOMED | | | | ENFORCEMENT MANAGER-C | | | [place] | | | CT) | | | | | | | MD | +---------+---------+---------+---------+---------+---------+---------+---------+---------+ | NEW | [id number] | | Resolve | | Florecita | | Procedu | | | PATIENT | 03 | | d | 24 | Suhr | | re | | | | (SNOMED | | | | ENFORCEMENT MANAGER-C | | carried | | | CONSULT | CT) | | | | | | out on | | | ATION | | | | | | | | | | | | | | | | | subject | | +---------+---------+---------+---------+---------+---------+---------+---------+---------+ | AVASCUL | [id number] | | Active | | Prabhakar | [...] femur | | +---------+---------+---------+---------+---------+---------+---------+---------+---------+ | URI | [id number] | | Inactiv | | Loraine | [...] on | | +---------+---------+---------+---------+---------+---------+---------+---------+---------+ | HYPERTE | [id number] | | Active | | Rudy | | Hyperte | | | NSION | | | | | Monteir | | nsive | | | | (SNOMED | | | | o MD | | disorde | | | | CT) | | | | | | r | | +---------+---------+---------+---------+---------+---------+---------+---------+---------+ | ELEVATE | [id number] | | Active | | Rudy | | Hypergl | | | D BLOOD | | | | | Monte[place] | | ycemia | | | SUGAR | (SNOMED | | | | o MD | | | | | | CT) | | | | | | | | +---------+---------+---------+---------+---------+---------+---------+---------+---------+ | NEW | [id number] | | Removed | | Rudy | | Procedu | | | PATIENT | | | | | Monteir | | [...] subject | | +---------+---------+---------+---------+---------+---------+---------+---------+---------+ | SCREENI | [id number] | | Resolve | | Rudy | [...] ng | | +---------+---------+---------+---------+---------+---------+---------+---------+---------+ | SCREENI | [id number] | | Resolve | | Rudy | | Alcohol | | | NG FOR | | / | d | | [place] | | | | | ALCOHOL | (SNOMED | | | | o MD | | consump | | | ISM | CT) | | | | | | tion | | | | | | | | | | screeni | | | | | | | | | | ng | | +---------+---------+---------+---------+---------+---------+---------+---------+---------+ | NICOTIN | [id number] | | Active | | Prabhakar | | Nicotin | | | E | 8 | /08 | | /08 | | | e | | | ADDICTI | (SNOMED | | | | VanAnro | | depende | | | ON | CT) | | | | oy MD | | nce | | +---------+---------+---------+---------+---------+---------+---------+---------+---------+ | ASEPTIC | [id number] | | Inactiv | | Ann | | Aseptic | | | | 05 | /28 | e | / | Yarbrou | | | | | [...] hip | | +---------+---------+---------+---------+---------+---------+---------+---------+---------+ | URI | [id number] | | Inactiv | | Phan | | Upper | | | | 9 | | e | | Middlek | | respira | | | | (SNOMED | | | | auff | | tory | | | | CT) | | | | ENFORCEMENT MANAGER | | infecti | | | | | | | | | | on | | +---------+---------+---------+---------+---------+---------+---------+---------+---------+ | SORE | [id number] | | Inactiv | | Phan | | Pain in | | | THROAT | 03 | / | e | / | Middlek | | throat | | | | (SNOMED | | | | auff | | | | | | CT) | | | | ENFORCEMENT MANAGER | | | | +---------+---------+---------+---------+---------+---------+---------+---------+---------+ | OTHER | [id number] | | Active | | Prabhakar | [...] | | | +---------+---------+---------+---------+---------+---------+---------+---------+---------+ | OPIOID | [id number] | | Active | | Phan | | Nondepe | | | ABUSE, | 05 | / | | | Middlek | | ndent | | | CONTINU | (SNOMED | | | | auff | | opioid | | | OUS | CT) | | | | ENFORCEMENT MANAGER | | abuse, | | | | | | | | | | continu | | | | | | | | | | ous | | +---------+---------+---------+---------+---------+---------+---------+---------+---------+ | HIP | [id number] | | Active | | Phan | | Hip | | | PAIN, | 2 | / | | | Middlek | | pain | | | LEFT | (SNOMED | | | | auff | | | | | | CT) | | | | ENFORCEMENT MANAGER | | | | +---------+---------+---------+---------+---------+---------+---------+---------+---------+ | UPPER | [id number] | | Inactiv | | Malachi Levin [...] on | | +---------+---------+---------+---------+---------+---------+---------+---------+---------+ | BRACHIA | [id number] | | Inactiv | | Malachi Levin [...] | | | +---------+---------+---------+---------+---------+---------+---------+---------+---------+ | RIB | [id number] | | Inactiv | | Malachi K | | Rib | | | PAIN | | | e | | Dye | | pain | | | | (SNOMED | | | | ACNP | | | | | | CT) | | | | | | | | +---------+---------+---------+---------+---------+---------+---------+---------+---------+ | LESION | 4849948 | | Active | | Clementina | [...] | THROSIS | (ICD-10 | | | / | | | fied | | | [...] | | | +---------+---------+---------+---------+---------+---------+---------+---------+---------+ | ANAL | [id number] | | Removed | | Karissa | | Anal | per | | FISSURE | 6 | | | / | Sea | | fissure | Alexander | | | (SNOMED | | | | RN | | | [place] | | | CT) | | | | | | | MD | +---------+---------+---------+---------+---------+---------+---------+---------+---------+ | RECTAL | 5373527 | | Removed | | Rodrigo | [...] | 05/11/14 | +---------+---------+---------+---------+---------+---------+---------+---------+---------+ | SCREENI | 3781460 | | Removed | | Juan | | Alcohol | | | NG FOR | 01 | / | | / | Vishal | | | | | ALCOHOL | (SNOMED | | | | s DO | | consump | | | ISM | CT) | | | | | | tion | | | | | | | | | | screeni | | | | | | | | | | ng | | +---------+---------+---------+---------+---------+---------+---------+---------+---------+ | SCREENI | [id number] | | Removed | | Andriy | | Alcohol | | | NG FOR | 01 | / | | / | Padovic | | | | | ALCOHOL | (SNOMED | | | | h ENFORCEMENT MANAGER | | consump | | | ISM | CT) | | | | | | tion | | | | | | | | | | screeni | | | | | | | | | | ng | | +---------+---------+---------+---------+---------+---------+---------+---------+---------+ | FOOT | 1648825 | | Removed | | Skye | | Foot | | | PAIN, | 7 | /15 | | /15 | Epifanio | | pain | | | RIGHT | (SNOMED | | | | ENFORCEMENT MANAGER | | | | | | [...] | 1 | | | BISACODYL | [id number] | Florecita | | 10 MG | suppositor | | | | 0 | Mackenzie GUPTAP-C | | SUPP | y QHS PRN | | | | | | | | constipati | | | | | | | | on | | | | | | + + + + + + + + | OXYCODONE | 3-4 per | | | OXYCODONE | 2906686951 | Rudy | | HCL 10 MG | day | | | HCL | 8 | Yaquelin | | TABS | | | | | | MD | + + + + + + + + | MIRALAX | 17grams | | | POLYETHYLE | [id number] | Melvina | | POWD | mixed in | | | NE GLYCOL | 1 | Margarito CONRAD | | | 6-8ounces | | | 3350 | | | | | of fluid | | | | | | | | po daily | | | | | | + + + + + + + + | TESSALON | Take three | | | BENZONATAT | 7926138875 | Karma | | PERLES 100 | [...] | three | | | IBUPROFEN | [id number] | Prabhakar | | 600 MG | times per | | | | 6 | VanAnrooy | | TABS | day | | | | | MD | + + + + + + + + | AMBERDERM | Apply prn | | | BALSAM | [id number] | Bobby | | 650-72.5 | to lower | | | JOSEPH-GEOVANY | 3 | [place] | | MG/0.82ML | lip for | [...] | | | | RSBG | | Mariselahr ENFORCEMENT MANAGER-C | + + + + + + + + | CEPACOL | 1 lozenge | | | BENZOCAINE | 1922925561 | Karma | | SORE | every [...] 1 tablet | | | ACETAMINOP | 6361142715 | Bobby | | HOUR | every 4 | | | HEN | 1 | [place] | | ARTHRITIS | hours as | [...] cap BID | | | DOCUSATE | [id number] | Florecita | | MG CAPS | | | | SODIUM | 0 | Suhr ENFORCEMENT MANAGER-C | + + + + + [...] tab BID | | | CYCLOBENZA | [id number] | Florecita | | YESSY HCL | PRN muscle | | | YESSY HCL | 0 | Suhr ENFORCEMENT MANAGER-C | | 10 MG TABS | [...] TAB Q6 | | | TRAMADOL | 7482593504 | Rudy | | HCL 50 MG | HRS PRN | | | HCL | 0 | Yaquelin | | TABS | PAIN | | | | | MD | + + + + + + + + | NORCO | 1 every 8 | | | HYDROCODON | 0769383947 | Rudy | | 5-325 MG | hours as | | | E-ACETAMIN | 1 | Yaquelin | | TABS | needed | | | OPHEN | | MD | + + + + + + + + | CLINDAMYCI | 1 tab by | | | CLINDAMYCI | 3195528175 | Tommy | | N HCL 150 | mouth by | | | N HCL | 7 | Rather PA | | MG CAPS | mouth | | | | | | | | every 4 | | | | | | | | hours | | | | | | + + + + + + + + | NORCO | 1 tab po | | | HYDROCODON | 6442454635 | Karma | | 5-325 MG | QD | | | E-ACETAMIN | 1 | Berenice CONRAD | | TABS | | | | OPHEN | | | + + + + + + + + | COMPRESSIO | put on in | | | COMPRESSIO | | Melvina | | N HOSE | the | | | N HOSE | | Margarito MA | | MEN'S | morning | | | MEN'S | | | | | and take | | | | | | | | off at | | | | | | | | bedtime | | | | | | + + + + + + + + | PROAIR HFA | Inhale 2 | | | ALBUTEROL | [id number] | Phan | | 108 (90 | puffs | | | SULFATE | 2 | Middlekauf | | Base) | every 4 | | | | | f ENFORCEMENT MANAGER | | MCG/ACT | hours as [...] tab q | | | OXYCODONE- | [id number] | Florecita | | 7.5-325 MG | 4 hrs for | | | ACETAMINOP | 0 | Suhr ENFORCEMENT MANAGER-C | | TABS | pain, hold [...] po bid | | | HYDROCODON | 2033730671 | Cyndi Hallett | | E-ACETAMIN | prn severe | | | E-ACETAMIN | 2 | NCMA | | OPHEN | pain | | | OPHEN | | | | 5-325 MG | | | | | | | | TABS | | | | | | | + + + + + + + + | NORCO | 4-6 per | | | HYDROCODON | 2675682246 | Karma | | 5-325 MG | day | | | E-ACETAMIN | 1 | Berenice CONRAD | | TABS | | | | OPHEN | | | + + + + + + + + | OXYCODONE | 3-4 per | | | OXYCODONE | 7907556118 | Karma | | HCL 10 MG | day | | | HCL | 8 | Berenice CONRAD | | TABS | | | | | | | + + + + + + + + | OXYCODONE | 1 tab q 4 | | | OXYCODONE | 4853152379 | Karma | | HCL 15 MG | hrs PRN | | | HCL | 1 | Berenice CONRAD | | TABS | pain | | | | | | + + + + + + + + | HYDROCODON | Take 1 tab | | | HYDROCODON | 1480044137 | Melvina | | E-ACETAMIN | po | | | E-ACETAMIN | 2 | Margarito CONRAD | | OPHEN | BID/PRN | | | OPHEN | | | | 7.5-325 MG | | | | | | | | TABS | | | | | | | + + + + + + + + | TRAMADOL | take 1 tab | | | TRAMADOL | 2413419559 | Karma | | HCL 50 MG | nightly | | | HCL | 0 | Berenice CONRAD | | [...] 1 tab | | | GUAIFENESI | 4591688623 | Karma | | N 400 MG [...] 2tabs po | | | VARENICLIN | 4566017082 | Rudy | | MG TABS | qd | | | E TARTRATE | 6 | Yaquelin | | | | | | | | MD | + + + + + + + + | OXYCODONE- | Take 1 tab | | | OXYCODONE- | 4225985656 | Phan | | ACETAMINOP | by mouth | | | ACETAMINOP | 6 | Abeluf | | HEN 5-325 | three | | | HEN | | f ENFORCEMENT MANAGER | | MG TABS | times [...] 1 tab | | | PSEUDOEPHE | 9021624706 | Phan | | ARVIND HCL | by mouth | | | ARVIND HCL | 0 | Marianakauf | | 30 MG TABS | four times | | | | | f ENFORCEMENT MANAGER | | | per day | [...] Inhale 2 | | | ALBUTEROL | 4016795490 | Malachi Levin | | 108 (90 [...] Take 1 | | | DOXYCYCLIN | 3795113491 | Malachi Levin | | E HYCLATE | capsule by | | | E HYCLATE | 6 | Dye | | 100 MG | [...] | | | 20MG | | Berenice CONRAD | + + + + + + + + | NORCO | 4-6 per | | | HYDROCODON | 2954808066 | Prabhakar | | 5-325 MG | day | | | E-ACETAMIN | 1 | VanAnrooy | | TABS | | | | OPHEN | | MD | + + + + + + + + | MOBIC 7.5 | 1 tablet | | | MELOXICAM | 3405553054 | Phan | | MG TABS | by mouth | | | | 5 | Middlekauf | | | daily. | | | | | f ENFORCEMENT MANAGER | | | Must last | | | | | | | | 30 days. | | | | | | + + + + + + + + | CLINDAMYCI | 1 tab by | | | CLINDAMYCI | 6476646107 | Malachi Levin | | N HCL 150 | mouth by | | | N HCL | 7 | Dye | | MG CAPS | mouth | | | | | ACNP | | | every 4 | | | | | | | | hours | | | | | | + + + + + + + + | [facility] MIL[facility] | prn | | | MAGNESIUM | 6407002487 | Melvina | | OF | constipati | | | HYDROXIDE | 5 | [place] | | MAGNESIA | on | | | | | | | 1200 | | | | | | | | MG/15ML | | | | | | | | SUSP | | | | | | | + + + + + + + + | IBUPROFEN | 4 By mouth | | | IBUPROFEN | 1532372182 | Andriy | | 200 MG | 3 times a | | | | 8 | Padovich | | TABS | day | | | | | ENFORCEMENT MANAGER | + + + + + + + + | UDS | 1.2.15 | | | UDDameon | | Prabhakar | | | consistent | | | | | Uzma | | | | | | | | MD | + + + + + + + + | CHANTIX 1 | 1 tab two | | | VARENICLIN | 3191459392 | Karma | | MG TABS | times per | | | E TARTRATE | 6 | Berenice CONRAD | | | day | | | | | | + + + + + + + + | HYDROCODON | Take 1 tab | | | HYDROCODON | 4753065593 | Karma | | E-ACETAMIN | po | | | E-ACETAMIN | 2 | Berenice CONRAD | | OPHEN | BID/PRN | | | OPHEN | | | | 7.5-325 MG | | | | | | | | TABS | | | | | | | + + + + + + + + | COUMADIN 4 | 1 tab | | | WARFARIN | 0987123018 | Florecita | | MG TABS | daily | | | SODIUM | 0 | Mariselahr ENFORCEMENT MANAGER-C | + + + + + + + + | IBUPROFEN | three | | | IBUPROFEN | 7074125970 | Rudy | | 600 MG | times per | | | | 6 | Yaquelin | | TABS | day | | | | | MD | + + + + + + + + | GLORIA TUTTLE | | | | GLORIA TUTTLE | | Andriy | | | | | | | | Padovich | | | | | | | | ENFORCEMENT MANAGER | + + + + + + + + | ELAVIL 25 | Take 1 | | | AMITRIPTYL | 3478714220 | Rudy | | MG TABS | tab po QHS | | | INE HCL | 0 | Yqauelin | | | | | | | | MD | + + + + + + + + | TRAMADOL | 1-2 TAB | | | TRAMADOL | 9372213090 | Rudy | | HCL 50 MG | BID PRN | | | HCL | 0 | Yaquelin | | TABS | PAIN | | | | | MD | + + + + + + + + | LISINOPRIL | 1 tab one | | | LISINOPRIL | 9284346978 | Rudy | | 20 MG | time per | | | | 4 | Yaquelin | | TABS | day | | | | | MD | + + + + + + + + | CHANTIX 1 | take 1tab | | | VARENICLIN | 3401109108 | Rudy | | MG TABS | po daily | | | E TARTRATE | 6 | Yaquelin | | | | | | | | MD | + + + + + + + + | TRAMADOL | 1 TAB BID | | | TRAMADOL | 2807320898 | Rudy | | HCL 50 MG | PRN PAIN | | | HCL | 0 | Yaquelin | | TABS | | | | | | MD | + + + + + + + + | NORCO | 1tab by | | | HYDROCODON | 1989801187 | Rudy | | 7.5-325 MG | mouth one | | | E-ACETAMIN | 0 | Yaquelin | | TABS | time per | | | OPHEN | | MD | | | day as | | | | | | | | needed | | | | | | + + + + + + + + | TRAMADOL | 1 TAB Q6 | | | TRAMADOL | 1563416371 | Prabhakar | | HCL 50 MG | HRS PRN | | | HCL | 0 | VanAnrooy | | TABS | PAIN | | | | | MD | + + + + + + + + | NORCO | 1tab po | | | HYDROCODON | 9102134472 | Rudy | | 7.5-325 MG | two times | | | E-ACETAMIN | 0 | Yaquelin | | TABS | per [...] tab po | | | HYDROCODON | 2312182068 | Rudy | | 5-325 MG | QD | | | E-ACETAMIN | 1 | Yaquelin | | TABS | | | | OPHEN | | MD | + + + + + + + + | TRAMADOL | take 1 tab | | | TRAMADOL | 3605469409 | Rudy | | HCL 50 MG | nightly | | | HCL | 0 | Yaquelin | | TABS | | | | | | MD | + + + + + + + + | NORCO | 1 every 8 | | | HYDROCODON | 9039267310 | Prabhakar | | 5-325 MG | hours as | | | E-ACETAMIN | 1 | VanAnrooy | | TABS | needed | | | OPHEN | | MD | + + + + + + + + | OXYCODONE | 1 tab q 4 | | | OXYCODONE | 4073452437 | Florecita | | HCL 15 MG | hrs PRN | | | HCL | 1 | Suhr ENFORCEMENT MANAGER-C | | TABS | pain | | | | | | + + + + + + + + | [facility] LYS[facility] | take 1 tab | | | LYSINE | 8198326115 | Rudy | | 1000 MG | [...] tab q | | | OXYCODONE- | 1740890297 | Florecita | | 7.5-325 MG | 4 hrs for | | | ACETAMINOP | 0 | Suhr ENFORCEMENT MANAGER-C | | TABS | pain, hold | | | HEN | | | | | if | | | | | | | | somnolent | | | | | | | | or asleep. | | | | | | + + + + + + + + | PERCOCET | 1-2 tab q | | | OXYCODONE- | [id number] | Florecita | | 7.5-325 MG | 4 hrs PRN | | | ACETAMINOP | 0 | Suhr ENFORCEMENT MANAGER-C | | TABS | pain, | | | HEN | | | | | dispense | | | | | | | | #84 | | | | | | + + + + + + + + | TESSALON | Take three | | | BENZONATAT | 3322509718 | Loraine | | PERLLOUISA 100 | [...] 1tab po | | | VARENICLIN | 4618589671 | Rudy | | MG TABS | bid | | | E TARTRATE | 6 | Yaquelin | | | | | | | | MD | + + + + + + + + | HYDROCODON | Take 1 tab | | | HYDROCODON | 8484506079 | Rudy | | E-ACETAMIN | po [...] po qd | | | LISINOPRIL | 6459482920 | Rudy | | 20 MG | | | | | 1 | Yaquelin | | TABS | | | | | | MD | + + + + + + + + | TRAMADOL | 1 TAB Q6 | | | TRAMADOL | 7312097435 | Prabhakar | | HCL 50 MG | HRS PRN | | | HCL | 0 | VanAnrooy | | TABS | PAIN | | | | | MD | + + + + + + + + | CEPACOL | 1 lozenge | | | BENZOCAINE | 6691332199 | Phan | | SORE | every 2 | | | -MENTHOL | 0 | Middlekauf | | THROAT | hours as | | | | | f ENFORCEMENT MANAGER | | 10-2.1 MG | needed for | | | | | | | LOZG | sore | | | | | | | | throat | | | | | | + + + + + + + + | GUAIFENESI | 1 tab | | | GUAIFENESI | 7968001226 | Phan | | N 400 MG | every 4 | | | N | 0 | Middlekauf | | TABS | hours as | | | | | f ENFORCEMENT MANAGER | | | needed for | | | | | | | | | | | | | | | | cough/yaw | | | | | | | | estion | | | | | | + + + + + + + + | PSEUDOEPHE | Take 1 tab | | | PSEUDOEPHE | 4999016842 | Malachi Levin | | ARVIND HCL | by mouth | | | DRINE HCL | 0 | Dye | | 30 MG TABS [...] Take 3 | | | PREDNISONE | 6324491663 | Malachi Levin | | 20 MG [...] Take 1 | | | GABAPENTIN | 8273004128 | Malachi Levin | | 300 MG | capsule by | | | | 0 | Dye | | CAPS | mouth [...] 1 tab | | | OXYCODONE- | 1807714350 | Malachi Levin | | ACETAMINOP | by mouth | | | ACETAMINOP | 6 | Dye | | HEN 5-325 | [...] 1 tab | | | CYCLOBENZA | 3142709079 | Malachi Levin | | YESSY HCL | by mouth | | | YESSY HCL | 5 | Dye | | 10 MG TABS [...] po bid | | | HYDROCODON | 7408542029 | Tommy | | E-ACETAMIN | prn severe | | | E-ACETAMIN | 2 | Rather PA | | OPHEN | pain | | | OPHEN | | | | 5-325 MG | | | | | | | | TABS | | | | | | | + + + + + + + + | MOBIC 7.5 | 1 tablet | | | MELOXICAM | 2937439426 | Jovany | | MG TABS | by mouth | | | | 5 | Ross DO | | | daily. 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 | +---------+ + + + + + Results +------+------+-------+------+-------+------+ + | Date | Name | Value | Unit | Range | Flag | Descriptio | | | | | | | | n | +------+------+-------+------+-------+------+ + + + | Office Visit: fuv - foot pain | + + + + +-----+---+---+---+ + | | CULT MRSA | Yes | | | | Culture, | | | | | | | | Methicilli | | | | | | | | n | | | | | | | | Resistant | | | | | | | | Staphyloco | | | | | | | | ccus | | | | | | | | aureus | + + +-----+---+---+---+ + + + | Append: Dataload/UDS | + + + +---------+ +---+---+---+ + | | PROPOX | Negative | | | | propoxyphe | | | SCRN | | | | | ne screen, | | | | | | | | urine | + +---------+ +---+---+---+ + + + | Lab Report: D-DIMER, QUANT ([facility]) | + + + + +-------+-------+-------+---+ + | | D-DIMER | < 100 | ng/mL | 0-400 | | FIBRIN | | | TITR | | | | | FRAGMENTS | | | | | | | | (PT; PPP; | | | | | | | | QN; ) | + + +-------+-------+-------+---+ + + + | EKG Report: 12 Lead ECG | + + + + +--------+ +---+---+ + | | EKG T AXIS | 81 | deg | | | T wave | | | | | | | | axis, | | | | | | | | electrocar | | | | | | | | diogram | + + +--------+ +---+---+ + | | EKG QRS | -66 | deg | | | QRS axis, | | | AXIS | | | | | electrocar | | | | | | | | diogram | + + +--------+ +---+---+ + | | EKG | 60 | deg | | | P wave | | | PWAVAXIS | | | | | axis, | | | | | | | | electrocar | | | | | | | | diogram | + + +--------+ +---+---+ + | | QT/QTC | 451 | ms | | | QT | | | | | | | | interval/Q | | | | | | | | T interval | | | | | | | | | | | | | | | | (corrected | | | | | | | | for heart | | | | | | | | rate), | | | | | | | | electrocar | | | | | | | | diogram | + + +--------+ +---+---+ + | | QT | 382 | ms | | | QT | | | INTERVAL | | | | | interval, | | | | | | | | electrocar | | | | | | | | diogram | + + +--------+ +---+---+ + | | QRS | 94 | ms | | | QRS | | | INTERVAL | | | | | duration, | | | | | | | | electrocar | | | | | | | | diogram | + + +--------+ +---+---+ + | | TN | 156 | ms | | | TN | | | INTERVAL | | | | | interval, | | | | | | | | electrocar | | | | | | | | diogram | + + +--------+ +---+---+ + | | ATRIAL | 84 | {beats}/mi | | | atrial | | | RATE | | n | | | rate, | | | | | | | | electrocar | | | | | | | | diogram | + + +--------+ +---+---+ + | | VENT RATE | 84 BPM | | | | ventilator | | | | | | | | rate | | | | | | | | setting | + + +--------+ +---+---+ + + + | Lab Report: Comprehensive Metabolic Panel, Troponin I, Lipase, Blood | + + + + +--------+-------+ +---+ + | | LIPASE | 396 | U/L | 73-393 | H | lipase, | | | SERUM | | | | | serum | + + +--------+-------+ +---+ + | | TROPONIN I | <0.015 | ng/mL | 0.000-0.04 | N | troponin I | | | | | | 0 | | | + + +--------+-------+ +---+ + + + | Office Visit: Ortho f/u L hip | + + + + + +---+---+---+ + | | ORTHIMAGIN | [place] | | | | Imaging | | | G | Orthopedic | | | | test | | | | s XR | | | | results | | | | 03/21/2016 | | | | pertinent | | | | [facility] AP | | | | to | | | | Pelvis, | | | | orthopedic | | | | Hip | | | | s | | | | 2VScleroti | | | | | | | | c head | | | | | | | | with early | | | | | | | | | | | | | | | | flattening | | | | | | | | head with | | | | | | | | | | | | | | | | questionab | | | | | | | | le | | | | | | | | collapse.A | | | | | | | | vascular | | | | | | | | necrosis | | | | | | | | of both | | | | | | | | hips with | | | | | | | | probable | | | | | | | | early | | | | | | | | collapse. | | | | | + + + +---+---+---+ + + + | Lab Report: Comprehensive Metabolic Panel, Coronary Risk Panel, Thyroid ... | + + + + +-------+ + +---+ + | | TSH ULTRA | 2.596 | u[iU]/mL | 0.360-4.80 | N | thyroid | | | | | | 0 | | stimulatin | | | | | | | | g hormone | | | | | | | | (TSH), | | | | | | | | ultra | | | | | | | | sensitive | + + +-------+ + +---+ + | | C-LDL/C-HD | 1.1 | | | N | LDL/HDL | | | L | | | | | ratio, | | | | | | | | serum | + + +-------+ + +---+ + | | CHOL/HDL | 2.5 | | | N | cholestero | | | | | | | | l/HDL | | | | | | | | ratio, | | | | | | | | serum | + + +-------+ + +---+ + | | VLDL | 35 | mg/dL | 6-32 | H | very low | | | | | | | | density | | | | | | | | lipoprotei | | | | | | | | ns | + + +-------+ + +---+ + | | LDL | 106 | mg/dL | <110 | N | Cholestero | | | | | | | | l in LDL | | | | | | | | [Mass/volu | | | | | | | | me] in | | | | | | | | Serum or | | | | | | | | Plasma | + + +-------+ + +---+ + | | HDL | 96 | mg/dL | >39 | N | Cholestero | | | | | | | | l in HDL | | | | | | | | [Mass/volu | | | | | | | | me] in | | | | | | | | Serum or | | | | | | | | Plasma | + + +-------+ + +---+ + | | TRIGLYCERI | 177 | mg/dL | 30-160 | H | Triglyceri | | | DE | | | | | de | | | | | | | | [Mass/volu | | | | | | | | me] in | | | | | | | | Serum or | | | | | | | | Plasma | + + +-------+ + +---+ + | | CHOLESTERO | 237 | mg/dL | 50-200 | H | Cholestero | | | L | | | | | l | | | | | | | | [Mass/volu | | | | | | | | me] in | | | | | | | | Serum or | | | | | | | | Plasma | + + +-------+ + +---+ + | | SGPT (ALT) | 41 | U/L | 12-78 | N | alanine | | | | | | | | aminotrans | | | | | | | | ferase | | | | | | | | (SGPT), | | | | | | | | serum | + + +-------+ + +---+ + | | SGOT (AST) | 21 | U/L | 12-37 | N | aspartate | | | | | | | | aminotrans | | | | | | | | ferase | | | | | | | | (SGOT), | | | | | | | | serum | + + +-------+ + +---+ + | | ALK PHOS | 48 | U/L | 40-126 | N | alkaline | | | [...] + +---+ + | | GLOBULIN | 3.9 | g/dL | 2.2-4.0 | N | globulins, | | | TOT | | | | | serum, | | | | | | | | total | + + +-------+ + +---+ + | | ALBUMIN | 4.2 | g/dL | 3.4-5.0 | N | albumin, | | | | | | | | serum | + + +-------+ + +---+ + | | PROTEIN, | 8.1 | g/dL | 6.4-8.2 | N | protein, | | | TOT | | | | | total, | | | | | | | | serum | + + +-------+ + +---+ + + + | 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 | + + + + + +---+---+---+ + | | DEPSCREEN | negative | | | | Adolescent | | | | | | | | | | | | | | | | depression | | | | | | | | screening | | | | | | | | | | | | | | | | assessment | + + + +---+---+---+ + | | PHQ-9 | 0 | [...] | | PHQ] | + + + +---+---+---+ + | | PHQ-9 | 0|0|0|0|0| | | | | Adolescent | | | | 0|0|0|0|No | | | | | | | | t | | | | depression | | | | difficult | | | | screening | | | | at all | | | | | | | | | | | | assessment | + + + +---+---+---+ + + + | Lab Report: Glyco [...] | + +--------+-----+---+---------+---+ + + + | Lab Report: Prothrombin [...] +---+ + + + | Office Visit: hip [...] ) | + + + +---+---+---+ + + + | Replaced Document: (P) CBC with Auto Diff | + + [...] CBC with Auto Diff, Erythro Sed Rate, [place] | + + + +-----+---+------+------+---+ + | | ESR | 6 | mm/h | 0-20 | N | erythrocyt | | | | | | | | e | | | | | | | | sedimentat | | | | | | | | ion rate | + +-----+---+------+------+---+ + + + | Lab Report: C-REACTIVE PROTEIN, EXT RANGE | + + + +-----+--------+-------+ +---+ + | | CRP | <0.290 | mg/dL | 0.000-0.30 | N | C-reactive | | | | | | 0 | | protein, | | | | | | | | serum | + +-----+--------+-------+ +---+ + + + | Office Visit: Hip Pain | + + + +---------+---------+---+---+---+ + | | DIET | yes | | | | Dietary | | | OCCUP THER | | | | | management | [...] | + +---------+---------+---+---+---+ + + + | Rx Refill: eRx Request for CHANTIX 1MG TABS | + + + +--------+ +---+---+---+ + | | ESM_RR | [id number] | | | B | e-scripts | [...] | | | | | | | `Kacy- | | | | | | | | Talib*`5 | | | | | | | | [phone]` | | | | | | | | [phone] | | | | | | | [...] +---+---+---+ + + + | Office Visit: [facility] [...] urine | + + + +-------+---+---+ + Plan of Care + + + + | Type | Date | Detail | + + + + | Referral | | Podiatry Consult | | | | GUILLERMO Haley, | | | | [address], | | | | [place], [address] | | | | | + + [...] + | Pending order | | MR Oswald-BRITTANY Banuelos-Lt | + + + + | Pending order | | XR Foot 2V-Rt | + + + + | Pending order | | XR Foot 2V-Rt | + + + + Procedures + + + + + | Code | Procedure Name | Date | Entry Date | + + + + + | CPT-52037 | Theraputic | | | | | Injection (IM/SubQ) | | | + + + + + | CPT-J1885 | Toradol 15mg | | | + + + + + | CPT-04662 | Urine Toxicology | | | | | Screen, Multiple | | | | | Drug Classes by | | | | | Direct Optical | | | | | Observation | | | + + + + + | CPT-72904 | [address] [facility] Individual | | | | | Therapy (53-112) | | | | | No POS Phone | | | + + + + + | CPT-95553 | XR Hip W/Pelvis | | | | | 2-3V-Lt | | | + + + + + | CPT-98264 | Theraputic | | | | | Injection (IM/SubQ) | | | + + + + + | CPT-J1885 | Toradol 15mg | | | + + + + + | CPT-74973 | Urine Toxicology | | | | | Screen, Multiple | | | | | Drug Classes by | | | | | Direct Optical | | | | | Observation | | | + + + + + | CPT-14172 | Theraputic | | | | | Injection (IM/SubQ) | | | + + + + + | CPT-J1885 | Toradol 15mg | | | + + + + + | CPT-95048 | Theraputic | | | | | Injection (IM/SubQ) | | | + + + + + | CPT-J1885 | Toradol 15mg | | | + + + + + | CPT-07700 | Theraputic | | | | | Injection (IM/SubQ) | | | + + + + + | CPT-J1885 | Toradol 15mg | | | + + + + + | CPT-99360 | XR Hip W/Pelvis | | | | | 2-3V-Lt | | | + + + + + | CBC AUTO 45114 | CBC w/ Auto Diff | | | + + + + + | CPT-86676 | XR Hip W/Pelvis | | | | | 2-3V-Lt | | | + + + + + | CBC AUTO 33468 | CBC w/ Auto Diff | | | + + + + + | M NOS MRSA 85881 | Nose Culture, MRSA | | | | | Only | | | + + + + + | CHEM 8 20727 | Basic Metabolic | | | | | Panel | | | + + + + + | CPT-11903 | Health Risk | | | | | Assessment | | | + + + + + | GLYCO HGB 80106 | Glyco Hemoglobin, | | | | | A1C | | | + + + + + | CPT-70125 | Health Risk | | | | | Assessment | | | + + + + + | CPT-08297 | Health Risk | | | | | Assessment | | | + + + + + | U NICOTINE 78684 | Cotinine | | | + + + + + | 19769 | MR Hip-WO Con-Lt | | | + + + + + | CPT-65579 | XR Hip W/Pelvis | | | | | 2-3V-Lt | | | + + + + + | CPT- 11740 | Administration | | | | | (48747) | | | + + + + + | CPT-J1885 | Toradol Inj. 60mg | | | + + + + + | CPT-16278 | Urine Tox, multiple | | | | | drug classes | | | + + + + + | 14949 | XR Foot 2V-Rt | | | + + + + + | [id number] | [Recorded for CQM] | | | | | Pedal pulse taking | | | | | (procedure) | | | + + + + + | [id number] | [Recorded for CQM] | | | | | Documentation of | | | | | current medications | | | | | (procedure) | | | + + + + + | [id number] | [Recorded for CQM] | | | | | Health-related | | | | | behavior | | | + + + + + | [id number] | MU Generic Patient | | | | | Encounter Service | | | | | (from patch) | | | + + + + + | [id number] | [Recorded for CQM] | | | | | Pedal pulse taking | | | | | (procedure) | | | + + + + + | [id number] | [Recorded for CQM] | | | | | Documentation of | | | | | current medications | | | | | (procedure) | | | + + + + + | [id number] | [Recorded for CQM] | | | | | Drug or Medication | | | + + + + + | [id number] | [Recorded for CQM] | | | | | Details of drug | | | | | misuse behavior | | | + + + + + | [id number] | [Recorded for CQM] | | | | | Never smoker | | | + + + + + | [id number] | [Recorded for CQM] | | | | | Never smoked | | | | | tobacco (finding) | | | + + + + + | 626334532 | [Recorded for CQM] | | | | | Tobacco use and | | | | | exposure | | | + + + + + | 696972535 | [Recorded for CQM] | | | | | Alcohol intake | | | + + + + + | 692343495 | [Recorded for CQM] | | | | | Allergy | | | + + + + + | 535732090 | [Recorded for CQM] | | | | | Alcohol intake | | | + + + + + | 541555785 | [Recorded for CQM] | | | | | Tobacco use and | | | | | exposure | | | + + + + + | 652351949 | [Recorded for CQM] | | | | | Details of drug | | | | | misuse behavior | | | + + + + + | 251990694 | [Recorded for CQM] | | | | | Drug or Medication | | | + + + + + | [id number] | [Recorded for CQM] | | | | | Current Light | | | | | tobacco smoker | | | + + + + + | [id number] | [Recorded for CQM] | | | | | Light tobacco | | | | | smoker (finding) | | | + + + + + | [phone] | [Recorded for CQM] | | | | | Documentation of | | | | | current medications | | | | | (procedure) | | | + + + + + | [id number] | [Recorded for CQM] | | | | | Pedal pulse taking | | | | | (procedure) | | | + + + + + | 76826 | XR Foot 2V-Rt | | | [...] | | | | | | diastolic - | | | | | | 8462-4 | + + +-------+---------+ + | | BP Systolic | 138 | mm[Hg] | blood pressure, | | | | | | systolic - | | | | | | 8480-6 | + + +-------+---------+ + | | [...] | /min | pulse rate E&M | | | | | | - 8867-4 | + + +-------+---------+ + | | O2 % BldC | 98 | % | oxygen | | | Oximetry | | | saturation, | | | | | | oximetry | + + +-------+---------+ + | | Respiratory | 15 | /min | respiratory | | | Rate | | | rate E&M - | | | | | | 9279-1 | + + +-------+---------+ + | | Weight Measured | 260 | [lb_av] | weight E&M - | | | | | | 3141-9 | + + +-------+---------+ + | | Height | 72 | [in_us] | height E&M - | | | | | | 8302-2 | + + +-------+---------+ + | | BSA (Body | 1.79 | | body surface | | | Surface Area) | | | area | + + +-------+---------+ + Social History [...] + +-------+ + | Alcohol intake | ETOH USE | previous | | [...] + +-------+ + | Alcohol intake | ETOH USE | current | | [...] + +-------+ + | Alcohol intake | ETOH USE | never | | [...]
--- OUTSIDE RECORDS SUMMARY | ~2019-09-25 | XMS ---
Demographics + + + | Address | [address] | | | [place] [address] | + + + | Home Phone | | + + + | Preferred Language | Unknown | + + + | Marital Status | S | + + + | Protestant Affiliation | Unknown | + + + | Race | White | + + + | Ethnic Group | Not or | + + + Author + + + | Author | [facility] | + + + | Organization | [facility] | + + + | Address | [address] | | | [place] [address] | + + + | Phone | Unavailable | + + + Care Team Providers + + + + | Care Puzzle Assembler Name | Role | Phone | + + + + Unavailable | Unavailable | + + + + Conditions or Problems No information available. Medications + + + + + + + + | Medication | Instructio | Start Date | Stop Date | Generic | NDC | Provider | | | ns | | | Name | | | + + + + + + + + | CHANTIX | follow | | | VARENICLIN | [phone] | Davi | | STARTING | instructio | | | E TARTRATE | 3 | Hoduane DO | | MONTH LIZA | ns on [...] take 1tab | | | VARENICLIN | [id number] | Davi | | MG TABS | po daily | | | E TARTRATE | 6 | Hoyne DO | + + + + + + + + | GRX HICORT | 1 | | | HYDROCORTI | [id number] | Davi | | 25 25 MG [...] 1 tab | | | TRAMADOL | [id number] | Davi | | HCL 50 MG | q 6 hours | | | HCL | 1 | Edison DO | | TABS | prn pain | | | | | | + + + + + + + + | OXYCODONE- | 1 tab po q | | | OXYCODONE- | [id number] | Davi | | ACETAMINOP | 6 hrs prn | | | ACETAMINOP | 5 | Edison DO | | HEN 5-325 | rectal | | | HEN | | | | MG TABS | pain | | | | | | + + + + + + + + | [facility] MILK | 5 ml po | | | MAGNESIUM | [id number] | Davi | | OF | mid [...] 1 bid | | | DOCUSATE | [id number] | Davi | | MG CAPS | prn | | | SODIUM | 0 | Edison DO | | | constipati | | | | | | | | on | | | | | | + + + + + + + + | RECTIV 0.4 | 1 inch | | | NITROGLYCE | [id number] | Davi | | % OINT | [...] No information available. Allergies, Adverse Reactions, Alerts No information available. Results +------+------+-------+------+-------+------+ + | Date | Name [...] | | ) | + +--------+---------+---+---+---+ + Plan of Care No information available. Procedures + + + + + | Code | Procedure Name | Date | Entry Date | + + + + + | [id number] | Overweight | | | + + [...] weight E&M | + + +-------+---------+ + Immunizations No information available. Reason for Visit + + + | Reason For Visit Description | Start Date | + + + | General Notes | | + + + | | Med List: (Reconciled) * CSA | | | SRCHC TYLENOL 8 HOUR ARTHRITIS PAIN | | | 650 MG ORAL TABLET EXTENDED RE | | | (ACETAMINOPHEN) 1 tablet every 4 hours as | | | needed for pain/fever Allergy List: | | | (Reviewed) SULFA (SULFADIAZINE) | | | (Critical) Meaningful Use Med List: | | | (Reconciled) HPI Acute | | | Patient is a 52 Year Old Male here for a | | | Walk In for Rectal Bleeding. Patient has a | | | HX of Anal Fissure. Patient states his | | | stool has been soft, but has been having | | | rectal bleeding worse than before, patient | | | was given medications to help with the | | | anal fissure, but he ran out of it. | | | .......................................... | | | .........................Massiel Almonte [facility] | | | September 05, 2017 11:25 AM Patient is | | | a new 52-year-old single nonsmoker who | | | presents as a walk-in today for anal | | | fissure. Apparently this is a chronic | | | problem for the patient he's been dealing | | | with it for last few months with his PCP. | | | Asked for a referral and it's been a | | | couple of weeks he hasn't heard anything | | | so he got frustrated and came in here. No | | | fever chills. He states is having normal | | | amount of pain and bleeding. He states no | | | creams that have been prescribed has | | | improved and he cannot afford them so he | | | is requesting oxycodone. Patient also took | | | off work to come in today and is | | | requesting a note saying that he can | | | return to work Risk Factors Tobacco | | | Use: Former smoker Passive Smoke | | | Exposure: no Alcohol Use:current Year | | | Started: 1978 Average drink(s) per day: | | | <1 Type: beer Drug Use: none Comments: | | | Denies all drug use | | | .......................................... 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 Weight: 240.2 lbs. | | | Temp: 98.1deg.(oral) Pulse: 117(regular) | | | BMI: 33.62 Wt ch.40 Pulse | | | Oximetry: O2 sat. 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 He is requesting oxycodone and | | | is advised that we'll not be used. | | | Opiates are not recommended for anal | | | fissures. Keep the area clean and followup | | | with PCP. A note was written same the | | | patient can return to work. ] | + + + Reason for Referral No information available. Advance Directives No information available. Assessments No information available. Chief Complaint No information available. Encounters + + + + + + | Code | Encounter | Date | Provider | Facility | + + + + + + | [id number] | [facility] | | Davi Hogan DO | [facility] | | | Level II | | | [place] | | | ([id number]) | | | | + + + + + + Family History No information available. Functional Status Assessment No information available. History of Past Illness No information available. History of Present Illness No information available. Instructions No information available. Medical (General) History No information available. Payers + +--------+ + | Payer | Policy | Covered Republican | + +--------+ + | [employer] 04 15 2017 | | Nayan Reid | + +--------+ + | [employer] | | | + +--------+ + | DMAP | | Nayan Reid | + +--------+ + | DMAP | | Nayan Reid | + +--------+ + | [employer] | | Nayan Reid | + +--------+ + | [employer] &37 | | Nayan Reid | + +--------+ + | DMAP &58 | | Nayan Reid | + +--------+ + | DMAP &401 | | Nayan Reid | + +--------+ + | DMAP Fee for Service | | Nayan Reid | + +--------+ + | Sliding Fee Scale | | Nayan Reid | + +--------+ + | Sliding Fee Scale | | Nayan Reid | + +--------+ + | UHA | | Nayan Reid | + +--------+ + Physical Examination + + + + + | Date | Exam | Name | Description | + + + + + | | BP DIASTOLIC | Diastolic blood | 88 | | | | pressure | | + + + + + | | BP DIASTOLIC | BP Diastolic | 88 | + + + + + | | BP SYSTOLIC | Systolic blood | 140 | | | | pressure | | + + + + + | | BP SYSTOLIC | BP Systolic | 140 | + + + + + | | BP RED #2 | Diastolic blood | 88 | | | | pressure | | + + + + + | | BP RED #2 | BP Diastolic | 88 | + + + + + | | BP SYS #2 | Systolic blood | 140 | | | | pressure | | + + + + + | | BP SYS #2 | BP Systolic | 140 | + + + + + | | PULSE RATE | Heart rate | 117 | + + + + + | | PULSE RATE | Heart Rate | 117 | + + + + + | | TEMPERATURE | Body Temperature | 98.1 | + + + + + | | BMI | Body mass index | 33.62 | | | | (BMI) [Ratio] | | + + + + + | | BMI | Body mass index | 33.62 | | | | (BMI) [Percentile] | | | | | Per age and gender | | + + + + + | | BMI | BMI (Body Mass | 33.62 | | | | Index) | | + + + + + | | WEIGHT | Body weight | 240.2 | | | | Measured | | + + + + + | | WEIGHT | Weight Measured | 240.2 | + + + + + | | HEIGHT | Body height | 71 | + + + + + | | HEIGHT | Height | 71 | + + + + + Review of Systems No information available. Social History + + + +-------+ + [...]
--- OUTSIDE RECORDS SUMMARY | ~2019-09-25 | XMS | Continuity of Care Document ---
Demographics + + + | Address | [address] | | | [place] [address] | + + + | Home Phone | | + + + | Preferred Language | Unknown | + + + | Marital Status | Unknown | + + + | Jew Affiliation | Unknown | + + + | Race | Unknown | + + + | Ethnic Group | Unknown | + + + Author + + + | Author | [facility] | + + + | Organization | [facility] | + + + | Address | [address] | | | [place] [address] | + + + | Phone | | + + + Support + + + + + | Name | Relationship | Address | Phone | + + + + + | Maddi Agee DO | Caregiver | [address] | | | | | [place] | | | | | [address] | | + + + + + | DOCTOR, NO PCP | Caregiver | [address] | | | | | [facility] [place] | | | | | [address] | | + + + + + | JAYME KIRK | Next Of Kin | [place] [address] | | + + + + + Care Team Providers + + + + | Care Concrete Handler Name | Role | Phone | + + + + | IOANA CAMPO PCP | Unavailable | | + + + + Insurance Providers + + + + + | Payer Name | Policy Number | Subscriber Name | Relationship | + + + + + | [facility] | [id number] | [place] | SELF | + + + + + Chief Complaint and Reason for Visit + + + | Reason for Visit | ABD CRAMPING [place] | + + + Problems Active Medical [...] Active | + + + +--------+ | Epistaxis | Unknown | 05/14/17 | Active | + + + +--------+ | Right nasal polyps | Unknown | 05/14/17 | Active | + + + +--------+ | Nausea & vomiting | Unknown | 10/03/17 | Active | + + + +--------+ | Diarrhea | Unknown | 10/03/17 | Active | + + + +--------+ Medications Current Home Medications + +------+-------+-------+ + + + + | Medicati | Dose | Units | Route | Directio | Days/Qty | Instruct | Start | | on | | | | ns | | ions | Date | + +------+-------+-------+ + + + + | Dicyclom | 10 | MG | ORAL | Three | 30 | | 10/03/17 | | ine HCL | | | | Times a | | | | | (DICYCLO | | | | Day for | | | | | MINE | | | | abdomina | | | | | HCL) 10 | | | | l | | | | | MG | | | | cramping | | | | | CAPSULE | | | | | | | | + +------+-------+-------+ + + + + | Ondanset | 4 | MG | ORAL | Every 6 | 20 | | 10/03/17 | | martir | | | | Hours | | | | | (Zofran | | | | for | | | | | Odt) 4 | | | | Nausea | | | | | MG | | | | | | | | | TAB.RAPD | [...] | + + + + + | Dicyclomine Hcl | Every 6 Hours as | 01/20/17 | Discontinued | | (Bentyl) 10 Mg | needed for pain | | | | Capsule Capsule, 2 | | | | | Cap Oral | | | | + + [...] + + + + | Hydrocodone | | Unknown | Discontinued | | Bit/Acetaminophen | | | | | (Hydrocodone-Apap | | | | | 10-325 Tablet) 1 | | | | | Each Tablet Tablet, | | | | | 1 Each Oral | | | | + + + + + | Hydrocodone | Every 4 Hours as | 05/14/17 | Discontinued | | Bit/Acetaminophen | needed for Pain | | | | ([place] 5-325 | | | | | Tablet) 1 Each | | | | | Tablet Tablet, 1 | | | | | Tab Oral | | | | + + + + + | Hydrocodone | Every 4 Hours as | 01/13/15 | Discontinued | | Bit/Acetaminophen | Needed as needed | | | | ([place] 5-325 | for PAIN | | | | Tablet) 1 Each | | | | | Tablet Tablet, 1-2 | | | | | Tab Oral | | | | + + + + + | Hydrocodone/Acetami | | Unknown | Discontinued | | nophen ([place] | | | | | 5MG-325MG) 5 [...] Mg | Pain | | | | ([place] 10-325 Mg) | | | | | 10 Mg/325 Mg Tab | | | | | Tab, 0.5-1 Tab Oral | | | | + + + + + | Hydrocodone/Apap | Every 6 Hours | 08/15/16 | Discontinued | | 5-325 Mg ([place] | | | | | 5-325 Mg) [...] + + | Ondansetron (Zofran | Every 4 Hours as | 01/12/17 | Discontinued | | Odt) 4 Mg | needed for Nausea | | | | Tabneal | | | | | Mary, 1 Tab | | | | | Sublingual | | | | + + + + + | Ondansetron (Zofran | Every 8 Hours as | 01/08/17 | Discontinued | | Odt) 8 Mg | needed for Nausea | | | | Tab.rapdis | | | | | Tab.rapdis, 1 Tab | | | | | [...] | + + + + + | Oxymetazoline Hcl | Q12H as needed for | 05/14/17 | Discontinued | | (Afrin) 15 Ml Soln | Irritation | | | | Soln, 1 [place] Nasal | | | | + + + [...] | + + + + + | Promethazine Hcl | Q6H as needed for | 01/20/17 | Discontinued | | (Phenergan) 25 Mg | Nausea & Vomiting | | | | Tab Tab, 25 Mg Oral | | | | + [...] + + + | Discharge Date | 10/03/17 | + + + | Disposition | HOME | + + + | Condition at Discharge | Good | + + + | Instructions/Education Provided | Nausea, Adult | | | Abdominal Pain, Adult | + + + | Forms Provided | [employer]CHIT[employer]VE CONSENT | + + + | Prescriptions | See Medications Section | + + + | Referrals | NO PCP DOCTOR - | + + + | Additional Instructions/Education | Follow up with your PCP. Use zofran for | | | nausea. take bentyl for cramping. | | | Ifanything worsens please return to the | | | nearest ER immediatley | + + + Functional Status No functional status results. Allergies, Adverse Reactions, Alerts + +---------+ + +--------+ + | Allergen | Type | Severity | Reaction | Status | Last Updated | + +---------+ + +--------+ + | Sulfa | Allergy | Unknown | ANAPHYLAXIS, | Active | 10/03/17 | | (Sulfonamide | | | HIVES | | | | | | | | | | | Antibiotics) | | | | | | + +---------+ + +--------+ + | codeine | Allergy | Unknown | | Active | 10/03/17 | + +---------+ + +--------+ + Immunizations No Known History of Immunizations. Vital Signs + + + + | Vital Reading | Collection Date/Time | Result | + + + + | Blood Pressure | 10/03/17 6:47pm | 163/81 | + + + + | Blood Pressure Source | 06/17/16 4:24am | Right Arm | + + + + | Temperature | 10/03/17 4:24pm | 99.9 F | + + + + | Temperature Source | 10/03/17 4:24pm | Temporal | + + + + | Respiratory Rate | 10/03/17 6:47pm | 16 | + + + + | Pulse Rate | 10/03/17 6:47pm | 76 | + + + + | Bedside Pulse Oximetry | 10/03/17 6:47pm | 97 | + + + + | Height | 10/03/17 4:24pm | 6 ft 1 in | + + + + | Height | 18 4:24pm | 185.42 cm | + + + + | Weight | 18 4:24pm | 240 lb | + + + + | Weight | 18 4:24pm | 108.86 kg | + + + + | Body Mass Index | 10/03/17 4:24pm | 31.7 kg/m2 | + + + + Results [...] +--------+ +-------+ + + + + | Urine | Clean | | | | 10/03/17 | 10/03/17 | | | Source | Catch | | | | 5:00pm | 5:43pm | | + +--------+ +-------+ + + + + | Urine | Yellow | | | P-Yellow | 10/03/17 | 10/03/17 | | | Color | | | | | 5:00pm | 5:43pm | | + +--------+ +-------+ + + + + | Urine | Clear | | | Clear | 10/03/17 | 10/03/17 | | | Appearan | | | | | 5:00pm | 5:43pm | | | ce | | | | | | | | + +--------+ +-------+ + + + + | Urine | 1.025 | | * | 1.003-1. | 10/03/17 | 10/03/17 | | | Specific | | | | 022 | 5:00pm | 5:43pm | | | [place] | | | | | | | | + +--------+ +-------+ + + + + | Urine pH | 6.0 | | | 5.0-8.0 | 10/03/17 | 18 | | | | | | | | 5:00pm | 5:43pm | | + +--------+ +-------+ + + + + | Urine | Neg | | | Neg | 10/03/17 | 18 | | | Leukocyt | | | | | 5:00pm | 5:43pm | | | e | | | | | | | | | Esterase | | | | | | | | + +--------+ +-------+ + + + + | Urine | Neg | | | Neg | 18 | 18 | | | Nitrite | | | | | 5:00pm | 5:43pm | | + +--------+ +-------+ + + + + | Urine | Neg | | | Neg | 18 | 18 | | | Protein | | | | | 5:00pm | 5:43pm | | + +--------+ +-------+ + + + + | Urine | Neg | | | Neg | 18 | 10/03/18 | | | Glucose | | | | | 5:00pm | 5:43pm | | + +--------+ +-------+ + + + + | Urine | Neg | | | Neg | 10/03/18 | 18 | | | Ketones | | | | | 5:00pm | 5:43pm | | + +--------+ +-------+ + + + + | Urine | NORM | | | Normal | 18 | 10/03/18 | | | Urobilin | | | | | 5:00pm | 5:43pm | | | ogen | | | | | | | | + +--------+ +-------+ + + + + | Urine | Neg | | | Neg | 10/03/18 | 05/18 | | | Bilirubi | | | | | 5:00pm | 5:43pm | | | n | | | | | | | | + +--------+ +-------+ + + + + | Urine | Neg | | | Neg | 05/18 | 05/18 | | | Blood | | | | | 5:00pm | 5:43pm | | + +--------+ +-------+ + + + + | Urine | No | | | No | 10/03/17 | 10/03/17 | | | Culture | | | | | 5:00pm | 5:43pm | | | Indicate | | | | | | | | | d | | | | | | | | + +--------+ +-------+ + + + + | White | 4.77 | K/mm3 | | 4.00-11. | 10/03/17 | 10/03/17 | | | Blood | | | | 30 | 4:30pm | 5:10pm | | | Count | | | | | | | | + +--------+ +-------+ + + + + | Red | 5.04 | M/mm3 | | 4.30-5.9 | 10/03/17 | 10/03/17 | | | Blood | | | | 0 | 4:30pm | 5:10pm | | | Count | | | | | | | | + +--------+ +-------+ + + + + | Hemoglob | 15.3 | g/dL | | 13.5-17. | 10/03/17 | 06/05/18 | | | in | | | | 5 | 4:30pm | 5:10pm | | + +--------+ +-------+ + + + + | Hematocr | 44.5 | % | | 37.0-53. | 10/03/17 | 10/03/17 | | | it | | | | 0 | 4:30pm | 5:10pm | | + +--------+ +-------+ + + + + | Mean | 88 | fL | | 80-100 | 10/03/17 | 10/03/17 | | | Corpuscu | | | | | 4:30pm | 5:10pm | | | lar | | | | | | | | | Volume | | | | | | | | + +--------+ +-------+ + + + + | Mean | 30.4 | pg | | 26.0-34. | 10/03/17 | 10/03/17 | | | Corpuscu | | | | 0 | 4:30pm | 5:10pm | | | lar | | | | | | | | | Hemoglob | | | | | | | | | in | | | | | | | | + +--------+ +-------+ + + + + | Mean | 34.4 | g/dL | | 31.5-36. | 10/03/17 | 10/03/17 | | | Corpuscu | | | | 5 | 4:30pm | 5:10pm | | | lar | | | | | | | | | Hemoglob | | | | | | | | | in | | | | | | | | | Concent | | | | | | | | + +--------+ +-------+ + + + + | RDW | 42.1 | fL | | 35.1-46. | 10/03/17 | 10/03/17 | | | Standard | | | | 3 | 4:30pm | 5:10pm | | | | | | | | | | | | Deviatio | | | | | | | | | n | | | | | | | | + +--------+ +-------+ + + + + | RDW | 13.1 | % | | 11.7-14. | 10/03/17 | 10/03/17 | | | Coeffici | | | | 2 | 4:30pm | 5:10pm | | | ent of | | | | | | | | | Variatio | | | | | | | | | n | | | | | | | | + +--------+ +-------+ + + + + | Platelet | 206 | K/mm3 | | 150-400 | 10/03/17 | 10/03/17 | | | Count | | | | | 4:30pm | 5:10pm | | + +--------+ +-------+ + + + + | Mean | 10.0 | fL | | 9.1-12.4 | 10/03/17 | 10/03/17 | | | Platelet | | | | | 4:30pm | 5:10pm | | | Volume | | | | | | | | + +--------+ +-------+ + + + + | Differen | Auto | | | | 10/03/17 | 10/03/17 | | | tial | | | | | 4:30pm | 5:10pm | | | Method | | | | | | | | + +--------+ +-------+ + + + + | Neutroph | 71 | % | | 41-73 | 10/03/17 | 10/03/17 | | | ils (%) | | | | | 4:30pm | 5:10pm | | | (Auto) | | | | | | | | + +--------+ +-------+ + + + + | Lymphocy | 18 | % | L | 21-46 | 10/03/17 | 10/03/17 | | | wicho (%) | | | | | 4:30pm | 5:10pm | | | (Auto) | | | | | | | | + +--------+ +-------+ + + + + | Monocyte | 9 | % | | 4-13 | 10/03/17 | 10/03/17 | | | s (%) | | | | | 4:30pm | 5:10pm | | | (Auto) | | | | | | | | + +--------+ +-------+ + + + + | Eosinoph | 1 | % | | 0-6 | 10/03/17 | 10/03/17 | | | ils (%) | | | | | 4:30pm | 5:10pm | | | (Auto) | | | | | | | | + +--------+ +-------+ + + + + | Basophil | 2 | % | | 0-2 | 10/03/17 | 18 | | | s (%) | | | | | 4:30pm | 5:10pm | | | (Auto) | | | | | | | | + +--------+ +-------+ + + + + | Immature | 0 | % | | 0-1 | 10/03/17 | 10/03/17 | | | | | | | | 4:30pm | 5:10pm | | | Granuloc | | | | | | | | | yte % | | | | | | | | | (Auto) | | | | | | | | + +--------+ +-------+ + + + + | Nucleate | 0.0 | /100 WBC | | 0.0-0.2 | 10/03/17 | 18 | | | d Red | | | | | 4:30pm | 5:10pm | | | Blood | | | | | | | | | Cells % | | | | | | | | + +--------+ +-------+ + + + + | Absolute | 3.36 | K/mm3 | | 1.96-9.1 | 10/03/17 | 10/03/17 | | | | | | | 5 | 4:30pm | 5:10pm | | | Neutroph | | | | | | | | | ils | | | | | | | | | (auto) | | | | | | | | + +--------+ +-------+ + + + + | Absolute | 0.87 | K/mm3 | | 0.84-5.2 | 10/03/17 | 10/03/17 | | | | | | | 0 | 4:30pm | 5:10pm | | | Lymphocy | | | | | | | | | wicho | | | | | | | | | (auto) | | | | | | | | + +--------+ +-------+ + + + + | Absolute | 0.43 | K/mm3 | | 0.16-1.4 | 10/03/17 | 10/03/17 | | | | | | | 7 | 4:30pm | 5:10pm | | | Monocyte | | | | | | | | | s (auto) | | | | | | | | + +--------+ +-------+ + + + + | Absolute | 0.03 | K/mm3 | | 0.00-0.6 | 18 | 10/03/17 | | | | | | | 8 | 4:30pm | 5:10pm | | | Eosinoph | | | | | | | | | ils | | | | | | | | | (auto) | | | | | | | | + +--------+ +-------+ + + + + | Absolute | 0.07 | K/mm3 | | 0.00-0.2 | 10/03/17 | 10/03/17 | | | | | | | 3 | 4:30pm | 5:10pm | | | Basophil | | | | | | | | | s (auto) | | | | | | | | + +--------+ +-------+ + + + + | Absolute | 0.01 | K/mm3 | | 0.00-0.1 | 10/03/17 | 10/03/17 | | | | | | | 0 | 4:30pm | 5:10pm | | | Immature | | | [...] 0.00 | K/mm3 | | 0.00-0.0 | 10/03/17 | 10/03/17 | | | d RBC | | | | 2 | 4:30pm | 5:10pm | | | Absolute | | | | | | | | | Count | | | | | | | | | (auto) | | | | | | | | + +--------+ +-------+ + + + + | Sodium | 136 | mmol/L | | 136-145 | 10/03/17 | 10/03/17 | | | Level | | | | | 4:30pm | 5:19pm | | + +--------+ +-------+ + + + + | Potassiu | 3.1 | mmol/L | L | 3.5-5.5 | 10/03/17 | 10/03/17 | | | m Level | | | | | 4:30pm | 5:19pm | | + +--------+ +-------+ + + + + | Chloride | 103 | mmol/L | | 98-108 | 10/03/17 | 10/03/17 | | | Level | | | | | 4:30pm | 5:19pm | | + +--------+ +-------+ + + + + | Carbon | 21 | mmol/L | | 21-32 | 18 | 10/03/17 | | | Dioxide | | | | | 4:30pm | 5:19pm | | | Level | | | | | | | | + +--------+ +-------+ + + + + | Anion | 12 | mmol/L | | 6-16 | 18 | 10/03/17 | | | Gap | | | | | 4:30pm | 5:19pm | | + +--------+ +-------+ + + + + | Glucose | 193 | mg/dL | H | 70-99 | 10/03/17 | 18 | | | Level | | | | | 4:30pm | 5:19pm | | + +--------+ +-------+ + + + + | Blood | 15 | mg/dL | | 8-24 | 18 | 10/03/17 | | | Urea | | | | | 4:30pm | 5:19pm | | | Nitrogen | | | | | | | | + +--------+ +-------+ + + + + | Creatini | 0.89 | mg/dL | | 0.60-1.2 | 10/03/17 | 10/03/17 | | | ne | | | | 0 | 4:30pm | 5:19pm | | + +--------+ +-------+ + + + + | BUN/Crea | 16.9 | % | | 12.0-20. | 10/03/17 | 10/03/17 | | | tinine | | | | 0 | 4:30pm | 5:19pm | | | Ratio | | | | | | | | + +--------+ +-------+ + + + + | Glomerul | >60 | | | 60- | 10/03/17 | 10/03/17 | Non-Afri | | ar | | | | | 4:30pm | 5:19pm | can | | Filtrati | | | | | | | [place] | | on Rate | | | | | | | GFR | | Calc | | | | | | | CalcFor | | | | | | | | | | | | | | | | | | [place] | | | | | | | [...] + + + + | Calcium | 8.3 | mg/dL | L | 8.5-10.1 | 10/03/17 | 10/03/17 | | | Level | | | | | 4:30pm | 5:19pm | | + +--------+ +-------+ + + + + | Total | 7.1 | g/dL | | 6.4-8.2 | 10/03/17 | 10/03/17 | | | Protein | | | | | 4:30pm | 5:19pm | | + +--------+ +-------+ + + + + | Albumin | 3.1 | g/dL | L | 3.4-5.0 | 18 | 10/03/17 | | | | | | | | 4:30pm | 5:19pm | | + +--------+ +-------+ + + + + | Globulin | 4.0 | g/dL | | 2.2-4.0 | 10/03/17 | 10/03/17 | | | | | | | | 4:30pm | 5:19pm | | + +--------+ +-------+ + + + + | Albumin/ | 0.8 | | | 0.8-1.8 | 10/03/17 | 10/03/17 | | | Globulin | | | | | 4:30pm | 5:19pm | | | Ratio | | | | | | | | + +--------+ +-------+ + + + + | Total | 0.5 | mg/dL | | 0.1-1.0 | 10/03/17 | 10/03/17 | | | Bilirubi | | | | | 4:30pm | 5:19pm | | | n | | | | | | | | + +--------+ +-------+ + + + + | Alkaline | 52 | U/L | | 50-136 | 10/03/17 | 10/03/17 | | | | | | | | 4:30pm | 5:19pm | | | Phosphat | | | | | | | | | ase | | | | | | | | + +--------+ +-------+ + + + + | Aspartat | 382 | U/L | H | 12-37 | 10/03/17 | 10/03/17 | | | e Amino | | | | | 4:30pm | 5:19pm | | | Transf | | | | | | | | | (AST/SGO | | | | | | | | | T) | | | | | | | | + +--------+ +-------+ + + + + | Alanine | 253 | U/L | H | 12-78 | 10/03/17 | 10/03/17 | | | Aminotra | | | | | 4:30pm | 5:19pm | | | nsferase | | | | | | | | | | | | | | | | | | (ALT/SGP | | | | | | | | | T) | | | | | | | | + +--------+ +-------+ + + + + | Lipase | 205 | U/L | | 73-393 | 10/03/17 | 10/03/17 | | | | | | | | 4:30pm | 5:19pm | | + +--------+ +-------+ + + + + Procedures No Known History of Procedures. Encounters + + + + + + | Encounter | Location | Arrival/Admit | Discharge/Depar | Attending | | | | Date | t Date | Provider | + + + + + + | Departed | [facility] | 10/03/17 3:58pm | 10/03/17 8:05pm | Maddi Agee | | Emergency | [place] | | | Sarah DO | + + + + + + + + + | Encounter Diagnosis | Onset Date | + + + | Nausea & vomiting | | + + + | Diarrhea | | + + +"
--- OUTSIDE RECORDS SUMMARY | ~2019-09-25 | XMS | Clinical Summary ---
Demographics + + + | Address | [address] | | | [place] [address] | + + + | Home Phone | ;[phone] | + + + | Preferred Language | Unknown | + + + | Marital Status | U | + + + | Voodoo Affiliation | Unknown | + + + | Race | White | + + + | Ethnic Group | Not or | + + + Author + + + | Author | [facility] | + + + | Organization | [facility] | + + + | Address | [address] | | | [place] [address] | + + + | Phone | Unavailable | + + + Care Team Providers + +------+ + | Care [employer] Name | Role | Phone | + +------+ + | Marisel Hunt | PCP | | + +------+ + Conditions or Problems No information available. Medications No information available. Medications Administered No information available. Allergies, Adverse Reactions, Alerts No information available. Results No information available. Plan of Care No information available. Procedures No information available. Vital Signs No information available. Social History No information available."
--- OUTSIDE RECORDS SUMMARY | ~2019-09-25 | XMS | Clinical Summary ---
Demographics + + + | Address | [address] | | | [place] [address] | + + + | Home Phone | ;ext=[phone] | + + + | Preferred Language | Unknown | + + + | Marital Status | U | + + + | Worship Affiliation | Unknown | + + + | Race | White | + + + | Ethnic Group | Not or | + + + Author + + + | Author | [facility] | + + + | Organization | [facility] | + + + | Address | [address] | | | [place] [address] | + + + | Phone | Unavailable | + + + Care Team Providers + +------+ + | Care Superintendent Construction Name | Role | Phone | + [...] tion | | +---------+---------+---------+---------+---------+---------+---------+---------+---------+ | ADJUSTM | [id number] | | Active | | Mariah | [...] mood | | +---------+---------+---------+---------+---------+---------+---------+---------+---------+ | CHRONIC | [id number] | | Active | | Faina | | Chronic | | | PAIN | | | | | [place] | | pain | | | SYNDROM | (SNOMED | | | | DESIGN CONSULTANT | | syndrom | | | E | CT) | | | | | | e | | +---------+---------+---------+---------+---------+---------+---------+---------+---------+ | PAIN | [id number] | | Active | | Faina | | Psychal | | | DISORDE | | | | / | [place] | | urban | | | R | (SNOMED | | | | DESIGN CONSULTANT | | | | | ASSOCIA | [...] | | | +---------+---------+---------+---------+---------+---------+---------+---------+---------+ | ANEMIA | [id number] | | Active | | Florecita | | Anemia | | | | 00 | | | | Suhr | | | | | | (SNOMED | | | | EMERGENCY SPILL RESPONSE TECHNICIAN-C | | | | | | CT) | | | | | | | | +---------+---------+---------+---------+---------+---------+---------+---------+---------+ | APHTHOU | [id number] | | Active | | Luis | | Aphthou | | | S ULCER | 05 | | | | page Pimentel | | s ulcer | | | OF | (SNOMED | | | | MA | | of | | | MOUTH | CT) | | | | | | mouth | | +---------+---------+---------+---------+---------+---------+---------+---------+---------+ | DIFFICU | [id number] | | Active | | Bobby | | Walking | | | LTY IN | 08 | /20 | | / | Hersche | | | | | WALKING | (SNOMED | | | | r DO | | disabil | | | | CT) | | | | | | ity | | +---------+---------+---------+---------+---------+---------+---------+---------+---------+ | TOTAL | [id number] | | Active | | Florecita | | Total | | | HIP | 7 | | | | Suhr | | replace | | | ARTHROP | (SNOMED | | | | EMERGENCY SPILL RESPONSE TECHNICIAN-C | | ment of | | | [...] , | -CM) | | | | EMERGENCY SPILL RESPONSE TECHNICIAN-C | | osteoar | | | LOCALIZ [...] | | | +---------+---------+---------+---------+---------+---------+---------+---------+---------+ | FOOT | [id number] | | Resolve | | Florecita | | Foot | | | PAIN, | 7 | /15 | d | /15 | Suhr | | pain | | | RIGHT | (SNOMED | | | | EMERGENCY SPILL RESPONSE TECHNICIAN-C | | | | | | CT) | | | | | | | | +---------+---------+---------+---------+---------+---------+---------+---------+---------+ | RECTAL | [id number] | | Resolve | | Florecita | | Rectal | per | | BLEEDIN | 2 | /15 | d | /15 | Suhr | | hemorrh | Sacred | | G | (SNOMED | | | | EMERGENCY SPILL RESPONSE TECHNICIAN-C | | age | Heart | | | CT) | | | | | | | [facility] | | | | | | | | | | nd ER | | | | | | | | | | visit | | | | | | | | | | 05/11/14 | +---------+---------+---------+---------+---------+---------+---------+---------+---------+ | ANAL | [id number] | | Resolve | | Florecita | | Anal | per . | | FISSURE | 6 | | d | | Suhr | | fissure | Alexander | | | (SNOMED | | | | EMERGENCY SPILL RESPONSE TECHNICIAN-C | | | [place] | | | CT) | | | | | | | MD | +---------+---------+---------+---------+---------+---------+---------+---------+---------+ | NEW | [id number] | | Resolve | | Florecita | | Procedu | | | PATIENT | 03 | | d | 24 | Suhr | | re | | | | (SNOMED | | | | EMERGENCY SPILL RESPONSE TECHNICIAN-C | | carried | | | CONSULT | CT) | | | | | | out on | | | ATION | | | | | | | | | | | | | | | | | subject | | +---------+---------+---------+---------+---------+---------+---------+---------+---------+ | AVASCUL | [id number] | | Active | | Prabhakar | [...] femur | | +---------+---------+---------+---------+---------+---------+---------+---------+---------+ | URI | [id number] | | Inactiv | | Loraine | [...] on | | +---------+---------+---------+---------+---------+---------+---------+---------+---------+ | HYPERTE | [id number] | | Active | | Rudy | | Hyperte | | | NSION | | | | | Monteir | | nsive | | | | (SNOMED | | | | o MD | | disorde | | | | CT) | | | | | | r | | +---------+---------+---------+---------+---------+---------+---------+---------+---------+ | ELEVATE | [id number] | | Active | | Rudy | | Hypergl | | | D BLOOD | | | | | Monte[place] | | ycemia | | | SUGAR | (SNOMED | | | | o MD | | | | | | CT) | | | | | | | | +---------+---------+---------+---------+---------+---------+---------+---------+---------+ | NEW | [id number] | | Removed | | Rudy | [...] subject | | +---------+---------+---------+---------+---------+---------+---------+---------+---------+ | SCREENI | [id number] | | Resolve | | Rudy | [...] ng | | +---------+---------+---------+---------+---------+---------+---------+---------+---------+ | SCREENI | 7521334 | | Resolve | | Rudy | [...] ng | | +---------+---------+---------+---------+---------+---------+---------+---------+---------+ | NICOTIN | [id number] | | Active | | Prabhakar | | Nicotin | | | E | 8 | /08 | | /08 | | | e | | | ADDICTI | (SNOMED | | | | VanAnro | | depende | | | ON | CT) | | | | oy MD | | nce | | +---------+---------+---------+---------+---------+---------+---------+---------+---------+ | ASEPTIC | 2143715 | | Inactiv | | Ann | [...] hip | | +---------+---------+---------+---------+---------+---------+---------+---------+---------+ | URI | 5775471 | | Inactiv | | Phan | | Upper | | | | 9 | | e | | Middlek | | respira | | | | (SNOMED | | | | auff | | tory | | | | CT) | | | | EMERGENCY SPILL RESPONSE TECHNICIAN | | infecti | | | | | | | | | | on | | +---------+---------+---------+---------+---------+---------+---------+---------+---------+ | SORE | 4949816 | | Inactiv | | Phan | | Pain in | | | THROAT | 03 | / | e | / | Middlek | | throat | | | | (SNOMED | | | | auff | | | | | | CT) | | | | EMERGENCY SPILL RESPONSE TECHNICIAN | | | | +---------+---------+---------+---------+---------+---------+---------+---------+---------+ | OTHER | 4123261 | | Active | | Prabhakar | [...] | | | +---------+---------+---------+---------+---------+---------+---------+---------+---------+ | OPIOID | 6011761 | | Active | | Phan | | Nondepe | | | ABUSE, | 05 | / | | | Middlek | | ndent | | | CONTINU | (SNOMED | | | | auff | | opioid | | | OUS | CT) | | | | EMERGENCY SPILL RESPONSE TECHNICIAN | | abuse, | | | | | | | | | | continu | | | | | | | | | | ous | | +---------+---------+---------+---------+---------+---------+---------+---------+---------+ | HIP | 9004361 | | Active | | Phan | | Hip | | | PAIN, | 2 | / | | | Middlek | | pain | | | LEFT | (SNOMED | | | | auff | | | | | | CT) | | | | EMERGENCY SPILL RESPONSE TECHNICIAN | | | | +---------+---------+---------+---------+---------+---------+---------+---------+---------+ | UPPER | [id number] | | Inactiv | | Malachi Levin [...] on | | +---------+---------+---------+---------+---------+---------+---------+---------+---------+ | BRACHIA | 6048503 | | Inactiv | | Malachi Levin [...] | | | +---------+---------+---------+---------+---------+---------+---------+---------+---------+ | RIB | 8430204 | | Inactiv | | Malachi K | | Rib | | | PAIN | | | e | | Dye | | pain | | | | (SNOMED | | | | ACNP | | | | | | CT) | | | | | | | | +---------+---------+---------+---------+---------+---------+---------+---------+---------+ | LESION | 8006342 | | Active | | Clementina | [...] | | | +---------+---------+---------+---------+---------+---------+---------+---------+---------+ | ANAL | 5405252 | | Removed | | Karissa | | Anal | per | | FISSURE | 6 | | | / | Sea | | fissure | Alexander | | | (SNOMED | | | | RN | | | [place] | | | CT) | | | | | | | MD | +---------+---------+---------+---------+---------+---------+---------+---------+---------+ | RECTAL | 5729187 | | Removed | | Rodrigo | [...] | 05/11/14 | +---------+---------+---------+---------+---------+---------+---------+---------+---------+ | SCREENI | 5342718 | | Removed | | Juan | [...] ng | | +---------+---------+---------+---------+---------+---------+---------+---------+---------+ | SCREENI | 1538019 | | Removed | | Andriy | | Alcohol | | | NG FOR | 01 | / | | / | Padovic | | | | | ALCOHOL | (SNOMED | | | | h EMERGENCY SPILL RESPONSE TECHNICIAN | | consump | | | ISM | CT) | | | | | | tion | | | | | | | | | | screeni | | | | | | | | | | ng | | +---------+---------+---------+---------+---------+---------+---------+---------+---------+ | FOOT | 1452029 | | Removed | | Skye | | Foot | | | PAIN, | 7 | /15 | | /15 | Epifanio | | pain | | | RIGHT | (SNOMED | | | | EMERGENCY SPILL RESPONSE TECHNICIAN | | | | | | CT) [...] | 1 | | | BISACODYL | [id number] | Florecita | | 10 MG | [...] 3-4 per | | | OXYCODONE | 4509048769 | Rudy | | HCL 10 MG | day | | | HCL | 8 | Yaquelin | | TABS | | | | | | MD | + + + + + + + + | MIRALAX | 17grams | | | POLYETHYLE | 9504076565 | Melvina | | POWD | mixed [...] Take three | | | BENZONATAT | [id number] | Karma | | PERLES 100 | [...] | three | | | IBUPROFEN | 8731224369 | Prabhakar | | 600 MG | times per | | | | 6 | VanAnrooy | | TABS | day | | | | | MD | + + + + + + + + | AMBERDERM | Apply prn | | | BALSAM | 7229753293 | Bobby | | 650-72.5 | to lower | | | JOSEPH-GEOVANY | 3 | Romayor | | MG/0.82ML | lip for | [...] | | | RSBG | | Mariselahr EMERGENCY SPILL RESPONSE TECHNICIAN-C | + + + + + + + + | CEPACOL | 1 lozenge | | | BENZOCAINE | 8294304829 | Karma | | SORE | every [...] 1 tablet | | | ACETAMINOP | 7458180879 | Bobby | | HOUR | every 4 | | | HEN | 1 | Romayor | | ARTHRITIS | hours as | [...] cap BID | | | DOCUSATE | [id number] | Florecita | | MG CAPS | | | | SODIUM | 0 | Suhr EMERGENCY SPILL RESPONSE TECHNICIAN-C | + + + + + + [...] tab BID | | | CYCLOBENZA | [id number] | Florecita | | YESSY HCL | PRN muscle | | | YESSY HCL | 0 | Suhr EMERGENCY SPILL RESPONSE TECHNICIAN-C | | 10 MG TABS | pain [...] TAB Q6 | | | TRAMADOL | 2336720870 | Rudy | | HCL 50 MG | HRS PRN | | | HCL | 0 | Yaquelin | | TABS | PAIN | | | | | MD | + + + + + + + + | NORCO | 1 every 8 | | | HYDROCODON | 6577046685 | Rudy | | 5-325 MG | hours as | | | E-ACETAMIN | 1 | Yaquelin | | TABS | needed | | | OPHEN | | MD | + + + + + + + + | CLINDAMYCI | 1 tab by | | | CLINDAMYCI | 4364042400 | Tommy | | N HCL 150 [...] tab po | | | HYDROCODON | 5860046746 | Karma | | 5-325 MG | [...] Inhale 2 | | | ALBUTEROL | 2869788634 | Phan | | 108 (90 | puffs | | | SULFATE | 2 | Middlekauf | | Base) | every 4 | | | | | f EMERGENCY SPILL RESPONSE TECHNICIAN | | MCG/ACT | hours as | [...] tab q | | | OXYCODONE- | 9050144656 | Florecita | | 7.5-325 MG | 4 hrs for | | | ACETAMINOP | 0 | Suhr EMERGENCY SPILL RESPONSE TECHNICIAN-C | | TABS | pain, hold | [...] po bid | | | HYDROCODON | 4755116007 | Cyndi [place] | | E-ACETAMIN | prn severe | | | E-ACETAMIN | 2 | NCMA | | OPHEN | pain | | | OPHEN | | | | 5-325 MG | | | | | | | | TABS | | | | | | | + + + + + + + + | NORCO | 4-6 per | | | HYDROCODON | 0733372799 | Karma | | 5-325 MG | day | | | E-ACETAMIN | 1 | Berenice CONRAD | | TABS | | | | OPHEN | | | + + + + + + + + | OXYCODONE | 3-4 per | | | OXYCODONE | 1069546936 | Karma | | HCL 10 MG | day | | | HCL | 8 | Berenice CONRAD | | TABS | | | | | | | + + + + + + + + | OXYCODONE | 1 tab q 4 | | | OXYCODONE | 1805152029 | Karma | | HCL 15 MG | hrs PRN | | | HCL | 1 | Berenice CONRAD | | TABS | pain | | | | | | + + + + + + + + | HYDROCODON | Take 1 tab | | | HYDROCODON | 0348393391 | Melvina | | E-ACETAMIN | po [...] 1 tab | | | TRAMADOL | 0713182355 | Karma | | HCL 50 MG [...] 1 tab | | | GUAIFENESI | 8327839867 | Karma | | N 400 MG [...] 2tabs po | | | VARENICLIN | 5805371935 | Rudy | | MG TABS | qd | | | E TARTRATE | 6 | Yaquelin | | | | | | | | MD | + + + + + + + + | OXYCODONE- | Take 1 tab | | | OXYCODONE- | 7110401855 | Phan | | ACETAMINOP | by mouth | | | ACETAMINOP | 6 | Abeluf | | HEN 5-325 | three | | | HEN | | f EMERGENCY SPILL RESPONSE TECHNICIAN | | MG TABS | times per [...] 1 tab | | | PSEUDOEPHE | 0044786890 | Phan | | ARVIND HCL | by mouth | | | ARVIND HCL | 0 | Marianakauf | | 30 MG TABS | four times | | | | | f EMERGENCY SPILL RESPONSE TECHNICIAN | | | per day | | [...] Inhale 2 | | | ALBUTEROL | 8356741223 | Malachi Levin | | 108 (90 [...] Take 1 | | | DOXYCYCLIN | 5698817644 | Malachi Levin | | E HYCLATE [...] 4-6 per | | | HYDROCODON | 8945214266 | Prabhakar | | 5-325 MG | day | | | E-ACETAMIN | 1 | VanAnrooy | | TABS | | | | OPHEN | | MD | + + + + + + + + | MOBIC 7.5 | 1 tablet | | | MELOXICAM | 0434456012 | Phan | | MG TABS | by mouth | | | | 5 | Middlekauf | | | daily. | | | | | f EMERGENCY SPILL RESPONSE TECHNICIAN | | | Must last | | | | | | | | 30 days. | | | | | | + + + + + + + + | CLINDAMYCI | 1 tab by | | | CLINDAMYCI | 2332320387 | Malachi Levin | | N HCL [...] | prn | | | MAGNESIUM | 5763867232 | Melvina | | OF | constipati [...] By mouth | | | IBUPROFEN | 8704348286 | Andriy | | 200 MG | 3 times a | | | | 8 | Padovich | | TABS | day | | | | | EMERGENCY SPILL RESPONSE TECHNICIAN | + + + + + + + + | UDS | 1.2.15 | | | UDDameon | | Prabhakar | | | consistent | | | | | Uzma | | | | | | | | MD | + + + + + + + + | CHANTIX 1 | 1 tab two | | | VARENICLIN | 0080365041 | Karma | | MG TABS | times per | | | E TARTRATE | 6 | Berenice CONRAD | | | day | | | | | | + + + + + + + + | HYDROCODON | Take 1 tab | | | HYDROCODON | 3396044138 | Karma | | E-ACETAMIN | po [...] 1 tab | | | WARFARIN | 9111256007 | Florecita | | MG TABS | daily | | | SODIUM | 0 | Mariselahr EMERGENCY SPILL RESPONSE TECHNICIAN-C | + + + + + + + + | IBUPROFEN | three | | | IBUPROFEN | 2962067917 | Rudy | | 600 MG | [...] | | | | | | | EMERGENCY SPILL RESPONSE TECHNICIAN | + + + + + + + + | ELAVIL 25 | Take 1 | | | AMITRIPTYL | 4620255747 | Rudy | | MG TABS | tab po QHS | | | INE HCL | 0 | Yaquelin | | | | | | | | MD | + + + + + + + + | TRAMADOL | 1-2 TAB | | | TRAMADOL | 0912350440 | Rudy | | HCL 50 MG | BID PRN | | | HCL | 0 | Yaquelin | | TABS | PAIN | | | | | MD | + + + + + + + + | LISINOPRIL | 1 tab one | | | LISINOPRIL | 6291887721 | Rudy | | 20 MG | time per | | | | 4 | Yaquelin | | TABS | day | | | | | MD | + + + + + + + + | CHANTIX 1 | take 1tab | | | VARENICLIN | 9364489746 | Rudy | | MG TABS | po daily | | | E TARTRATE | 6 | Yaquelin | | | | | | | | MD | + + + + + + + + | TRAMADOL | 1 TAB BID | | | TRAMADOL | 4994673974 | Rudy | | HCL 50 MG | PRN PAIN | | | HCL | 0 | Yaquelin | | TABS | | | | | | MD | + + + + + + + + | NORCO | 1tab by | | | HYDROCODON | 3966457057 | Rudy | | 7.5-325 MG | [...] TAB Q6 | | | TRAMADOL | 7384672899 | Prabhakar | | HCL 50 MG | HRS PRN | | | HCL | 0 | VanAnrooy | | TABS | PAIN | | | | | MD | + + + + + + + + | NORCO | 1tab po | | | HYDROCODON | 3028323246 | Rudy | | 7.5-325 MG | [...] tab po | | | HYDROCODON | 3472059937 | Rudy | | 5-325 MG | QD | | | E-ACETAMIN | 1 | Yaquelin | | TABS | | | | OPHEN | | MD | + + + + + + + + | TRAMADOL | take 1 tab | | | TRAMADOL | 7284672873 | Rudy | | HCL 50 MG | nightly | | | HCL | 0 | Yaquelin | | TABS | | | | | | MD | + + + + + + + + | NORCO | 1 every 8 | | | HYDROCODON | 5507453560 | Prabhakar | | 5-325 MG | hours as | | | E-ACETAMIN | 1 | VanAnrooy | | TABS | needed | | | OPHEN | | MD | + + + + + + + + | OXYCODONE | 1 tab q 4 | | | OXYCODONE | 6299478095 | Florecita | | HCL 15 MG | hrs PRN | | | HCL | 1 | Suhr EMERGENCY SPILL RESPONSE TECHNICIAN-C | | TABS | pain | | | | | | + + + + + + + + | [facility] LYSINE | take 1 tab | | | LYSINE | 0106525398 | Rudy | | 1000 MG | [...] tab q | | | OXYCODONE- | 7965019695 | Florecita | | 7.5-325 MG | 4 hrs for | | | ACETAMINOP | 0 | Suhr EMERGENCY SPILL RESPONSE TECHNICIAN-C | | TABS | pain, hold | | | HEN | | | | | if | | | | | | | | somnolent | | | | | | | | or asleep. | | | | | | + + + + + + + + | PERCOCET | 1-2 tab q | | | OXYCODONE- | 3212235764 | Florecita | | 7.5-325 MG | 4 hrs PRN | | | ACETAMINOP | 0 | Suhr EMERGENCY SPILL RESPONSE TECHNICIAN-C | | TABS | pain, | | | HEN | | | | | dispense | | | | | | | | #84 | | | | | | + + + + + + + + | TESSALON | Take three | | | BENZONATAT | 4164120285 | Loraine | | [place]LL[place] 100 | [...] 1tab po | | | VARENICLIN | 2323669398 | Rudy | | MG TABS | bid | | | E TARTRATE | 6 | Yaquelin | | | | | | | | MD | + + + + + + + + | HYDROCODON | Take 1 tab | | | HYDROCODON | 8236990157 | Rudy | | E-ACETAMIN | po [...] po qd | | | LISINOPRIL | 7191572950 | Rudy | | 20 MG | | | | | 1 | Yaquelin | | TABS | | | | | | MD | + + + + + + + + | TRAMADOL | 1 TAB Q6 | | | TRAMADOL | 5439663895 | Prabhakar | | HCL 50 MG | HRS PRN | | | HCL | 0 | VanAnrooy | | TABS | PAIN | | | | | MD | + + + + + + + + | CEPACOL | 1 lozenge | | | BENZOCAINE | 9954319111 | Phan | | SORE | every 2 | | | -MENTHOL | 0 | Middlekauf | | THROAT | hours as | | | | | f EMERGENCY SPILL RESPONSE TECHNICIAN | | 10-2.1 MG | needed for | | | | | | | LOZG | sore | | | | | | | | throat | | | | | | + + + + + + + + | GUAIFENESI | 1 tab | | | GUAIFENESI | 1273464402 | Phan | | N 400 MG | every 4 | | | N | 0 | Middlekauf | | TABS | hours as | | | | | f EMERGENCY SPILL RESPONSE TECHNICIAN | | | needed for | | | | | | | | | | | | | | | | cough/yaw | | | | | | | | estion | | | | | | + + + + + + + + | PSEUDOEPHE | Take 1 tab | | | PSEUDOEPHE | 7344804685 | Malachi Levin | | ARVIND HCL [...] Take 3 | | | PREDNISONE | 1265980144 | Malachi Levin | | 20 MG [...] Take 1 | | | GABAPENTIN | 4186801671 | Malachi Levin | | 300 MG [...] 1 tab | | | OXYCODONE- | 9505178929 | Malachi Levin | | ACETAMINOP | [...] 1 tab | | | CYCLOBENZA | 2331002311 | Malachi Levin | | YESSY HCL [...] po bid | | | HYDROCODON | 8324046123 | Tommy | | E-ACETAMIN | prn [...] 1 tablet | | | MELOXICAM | 3535085199 | Jovany | | MG TABS | [...] | | | | | | | EMERGENCY SPILL RESPONSE TECHNICIAN | + + + + + + [...] | | | | | | | EMERGENCY SPILL RESPONSE TECHNICIAN | +---------+ + + + + + | CODEINE | Itch | | Critical | No Longer | Skye | | | | | | Active | Epifanio EMERGENCY SPILL RESPONSE TECHNICIAN | +---------+ + + + + + | SULFA | Break out in | | Critical | | Skye | | | hives | | | | Epifanio EMERGENCY SPILL RESPONSE TECHNICIAN | +---------+ + + + + + [...] + + +--------+ +---+---+ + | | NC | 156 | ms | | | NC | | | INTERVAL | | | [...] +---+ + + + | Office Visit: [facility] MAINTENANCE MECHANIC 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- lft hip pain | + [...] | | | Dietary | | | MANAGER OF BROADCAST CONTENT | | | | | management | [...] +--------+ +---+---+---+ + | | ESM_RR | [id number] | | | B | e-scripts | [...] | | | | | | | [id number]` | | | | | | | | [id number] | | | | | | | [...] [place], | | | | [address] [facility], | | | | [place], [address] | | | | | + + [...] | + + + + + | CPT-11721 | Theraputic | | | | | Injection (IM/SubQ) | | | + + + + + | CPT-J1885 | Toradol 15mg | | | + + + + + | CPT-07508 | Urine Toxicology | | | | | Screen, Multiple | | | | | Drug Classes by | | | | | Direct Optical | | | | | Observation | | | + + + + + | CPT-16185 | [address] [facility] Individual | | | | | Therapy (53-112) | | | | | No POS Phone | | | + + + + + | CPT-74408 | XR Hip W/Pelvis | | | | | 2-3V-Lt | | | + + + + + | CPT-55717 | Theraputic | | | | | Injection (IM/SubQ) | | | + + + + + | CPT-J1885 | Toradol 15mg | | | + + + + + | CPT-57873 | Urine Toxicology | | | | | Screen, Multiple | | | | | Drug Classes by | | | | | Direct Optical | | | | | Observation | | | + + + + + | CPT-49422 | Theraputic | | | | | Injection (IM/SubQ) | | | + + + + + | CPT-J1885 | Toradol 15mg | | | + + + + + | CPT-23610 | Theraputic | | | | | Injection (IM/SubQ) | | | + + + + + | CPT-J1885 | Toradol 15mg | | | + + + + + | CPT-56397 | Theraputic | | | | | Injection (IM/SubQ) | | | + + + + + | CPT-J1885 | Toradol 15mg | | | + + + + + | CPT-61548 | XR Hip W/Pelvis | | | | | 2-3V-Lt | | | + + + + + | CBC AUTO 25030 | CBC w/ Auto Diff | | | + + + + + | CPT-79610 | XR Hip W/Pelvis | | | | | 2-3V-Lt | | | + + + + + | CBC AUTO 43743 | CBC w/ Auto Diff | | | + + + + + | M NOS MRSA 80374 | Nose Culture, MRSA | | | | | Only | | | + + + + + | CHEM 8 13483 | Basic Metabolic | | | | | Panel | | | + + + + + | CPT-97892 | Health Risk | | | | | Assessment | | | + + + + + | GLYCO HGB 27921 | Glyco Hemoglobin, | | | | | A1C | | | + + + + + | CPT-20311 | Health Risk | | | | | Assessment | | | + + + + + | CPT-33324 | Health Risk | | | | | Assessment | | | + + + + + | U NICOTINE 53931 | Cotinine | | | + + + + + | 52202 | MR Hip-WO Con-Lt | | | + + + + + | CPT-41038 | XR Hip W/Pelvis | | | | | 2-3V-Lt | | | + + + + + | CPT- 71415 | Administration | | | | | (01148) | | | + + + + + | CPT-J1885 | Toradol Inj. 60mg | | | + + + + + | CPT-14421 | Urine Tox, multiple | | | | | drug classes | | | + + + + + | 95298 | XR Foot 2V-Rt | | | + + + + + | [id number] | [Recorded for CQM] | | | | | Pedal pulse taking | | | | | (procedure) | | | + + + + + | [id number] | [Recorded for CQM] | | | | | Documentation of | | | | | current medications | | | | | (procedure) | | | + + + + + | [id number] | [Recorded for CQM] | | | | | Health-related | | | | | behavior | | | + + + + + | [phone] | [facility] Generic Patient | | | | | Encounter Service | | | | | (from patch) | | | + + + + + | [id number] | [Recorded for CQM] | | | | | Pedal pulse taking | | | | | (procedure) | | | + + + + + | [id number] | [Recorded for CQM] | | | | | Documentation of | | | | | current medications | | | | | (procedure) | | | + + + + + | [id number] | [Recorded for CQM] | | | | | Drug or Medication | | | + + + + + | [id number] | [Recorded for CQM] | | | | | Details of drug | | | | | misuse behavior | | | + + + + + | [id number] | [Recorded for CQM] | | | | | Never smoker | | | + + + + + | [id number] | [Recorded for CQM] | | | | | Never smoked | | | | | tobacco (finding) | | | + + + + + | [phone] | [Recorded for CQM] | | | | | Tobacco use and | | | | | exposure | | | + + + + + | [phone] | [Recorded for CQM] | | | | | Alcohol intake | | | + + + + + | [id number] | [Recorded for CQM] | | | | | Allergy | | | + + + + + | 866235523 | [Recorded for CQM] | | | | | Alcohol intake | | | + + + + + | 864379300 | [Recorded for CQM] | | | | | Tobacco use and | | | | | exposure | | | + + + + + | 841401904 | [Recorded for CQM] | | | | | Details of drug | | | | | misuse behavior | | | + + + + + | 751852167 | [Recorded for CQM] | | | | | Drug or Medication | | | + + + + + | [phone] | [Recorded for CQM] | | | | | Current Light | | | | | tobacco smoker | | | + + + + + | [id number] | [Recorded for CQM] | | | | | Light tobacco | | | | | smoker (finding) | | | + + + + + | [phone] | [Recorded for CQM] | | | | | Documentation of | | | | | current medications | | | | | (procedure) | | | + + + + + | [id number] | [Recorded for CQM] | | | | | Pedal pulse taking | | | | | (procedure) | | | + + + + + | 87818 | XR Foot 2V-Rt | | | [...]
--- OUTSIDE RECORDS SUMMARY | ~2019-09-25 | XMS ---
Demographics + + + | Address | [address] | | | [facility], [place] [address] | + + + | Home Phone [...] + | Address | [address] | | | [place] [address] | + + + | Phone | Unavailable | + + + Care Team Providers + + + + | Care Application Services Manager Name | Role | Phone | + + + + Unavailable | Unavailable | + + + + Reason for Visit + + + | Reason For Visit Description | Start Date | + + + | General Notes | | + + + | | HPI Chief Complaint: New Patient LEFT | | | foot and ankle pain HgbA1c: 5.6% Current | | | Shoe Gear: Hiking Boots New Patient | | | LEFT foot and ankle pain. Patient is in | | | office alone today. States he has | | | experienced pain for a month in his foot | | | in ankle after hearing a popping sound. | | | Has had #1 corticosteroid injection at the | | | ED with 2 days' relief. Otherwise, no | | | therapy has been attempted. Wears hiking | | | boots, which are somewhat helpful reducing | | | pain with ambulation. Current | | | Medications TYLENOL 8 HOUR ARTHRITIS PAIN | | | 650 MG ORAL TABLET EXTENDED RELEASE | | | (ACETAMINOPHEN) 1 tablet every 4 hours as | | | needed for pain/fever; Route: ORAL | | | MIRALAX ORAL POWDER (POLYETHYLENE GLYCOL | | | 3350) Mix 17gm of powder with liquid per | | | day; Route: ORAL CARDIZEM 60 MG ORAL | | | TABLET (DILTIAZEM HCL) 1 by mouth twice | | | daily for 8 weeks; Route: ORAL BENTYL 10 | | | MG ORAL CAPSULE (DICYCLOMINE HCL) 1 by | | | mouth 4 times a day as needed for abdomen | | | cramping ULTRAM 50 MG ORAL TABLET | | | (TRAMADOL HCL) 1 by mouth every 6 hours as | | | needed; Route: ORAL CLINDAMYCIN HCL 300 | | | MG ORAL CAPSULE (CLINDAMYCIN HCL) ; Route: | | | ORAL Current Allergies SULFA | | | (SULFADIAZINE) (Critical) Updated | | | medication list with Patient and states no | | | changes in allergies. | | | .......................................... | | | .........................Skye Mac | | | [facility] August 20, 2019 9:22 AM Medical | | | History Sinus Mass 05/2017 TOTAL HIP | | | ARTHROPLASTY, LEFT (ICD-V43.64) | | | (UFP67-J18.642) HYPERTENSION (ICD-401.9) | | | (IFL91-Q32) ELEVATED BLOOD SUGAR | | | (ICD-790.29) (WFU96-T44.9) NICOTINE | | | ADDICTION (ICD-305.1) (HAY60-G93.200) | | | AVASCULAR NECROSIS OF FEMORAL HEAD | | | (ICD-733.42) (JWH32-A35.059) OTHER | | | OSTEONECROSIS, LEFT FEMUR (RKC58-P16.852) | | | OPIOID ABUSE, CONTINUOUS (ICD-305.51) | | | (ZJT39-D77.10) HIP PAIN, LEFT | | | (ICD-719.45) (SZI18-I07.552) LESION OF | | | PLANTAR NERVE (ICD-355.6) Surgical | | | History rt foot 2013 Left hip total | | | arthroplasty, 06/14/16 - Dr. Nascimento | | | Family History: Family History reviewed | | | during this update. 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 Weight: 234.2 | | | lbs. Temp: 99.7deg. BMI: 32.78 Wt | | | ch.20 Nutrition and Physical | | | Activity Counseling - Nutrition BMI | | | Recommendation: Nutrition Counseling BP | | | #1: 139/86 Position:sitting Site:left arm | | | Vitals entered by: Skye RAYMOND | | | on August 20, 2019 9:25 AM Review of | | | Symptoms Positive for difficulty | | | walking. Foot and ankle pain. All other | | | systems are reviewed and are negative. | | | Risk Factors Tobacco Use: Former smoker | | | Passive Smoke Exposure: no Alcohol | | | Use:current Year Started: 1978 Average | | | drink(s) per day: <1 Type: beer Drug | | | Use: none Comments: Denies all drug use | | | .......................................... 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 Capillary filling | | | time is less than three seconds. | | | Temperature is warm to the touch, and is | | | normal to the foot and ankle. There is | | | normal hair growth to the digits and | | | dorsal foot. Neurologic: Sensation is | | | grossly intact, with fine touch, | | | sharp/dull, vibratory, proprioception, and | | | protective sensation intact bilaterally. | | | Deep tendon reflexes are present and | | | symmetrical, patellar and Achilles tendon | | | areas, Normal plantar response. No clonus. | | | MSK: Pain reproduced on palpation | | | posterior to the lateral malleolus, LEFT | | | ankle. As well, in the area of the ATFL | | | and along the course of the peroneal | | | brevis to its insertion at the fifth | | | metatarsal base. Some pain on range of | | | motion testing at the fourth and fifth | | | metatarsal cuneiform joints. No crepitus | | | appreciable. Otherwise, inspection and | | | palpation of bones, joints and muscles is | | | unremarkable. Muscle strength full and | | | strength symmetric, normal muscle tone | | | without any atrophy or abnormal movements. | | | Muscle strength is 5/5 in all 4 | | | quadrants. Skin: Normal skin is intact | | | with no unusual lesions or changes. | | | Assessment/Plan Diagnosis: PERONEAL | | | TENDINITIS- LEFT LEG (ICD-726.79) | | | (TPS57-F30.72) Related Problem: SPRAIN OF | | | TARSAL LIGAMENT OF LEFT FOOT- INITIAL | | | ENCOUNTER (ICD-845.19) (KNQ30-S64.612A) | | | The patient was placed into a CAM boot | | | and told to wear it at all times while | | | ambulating with or without crutches, | | | wheelchair or scooter. The patient was | | | told to ice their affected foot for 20 | | | minutes at least twice daily. The | | | patient was told to elevate their affected | | | foot while at rest. Discussion was had | | | with Mister Reid regarding care options, | | | diagnoses, etiologies. -He will continue | | | in the Cam Walker boot at all times, | | | including sleep, for the next 1 week | | | minimum, and utilize the boot for the next | | | 2 weeks. -Also recommended he utilize | | | newly ordered custom orthotics in his boot | | | when he gets these tomorrow. 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 -I will see | | | him back in 2 weeks for follow-up. | | | --Anticipate providing orders for PT at | | | that time. Meaningful Use Med List: | | | (Reconciled) ] | + + + Assessments No information available. Chief Complaint + + + | Chief Complaint Description | Start Date | + + + | New Patient LEFT foot and ankle pain | | + + + History of Past Illness No information available."
--- OUTSIDE RECORDS SUMMARY | ~2019-09-25 | XMS ---
Demographics + + + | Address | [address] | | | [place], [place] [address] | + + + | Home Phone | | + + + | Preferred Language | Unknown | + + + | Marital Status | S | + + + | Mu-Ism Affiliation | Unknown | + + + | Race | White | + + + | Ethnic Group | Not or | + + + Author + + + | Author | [facility] | + + + | Organization | [facility] | + + + | Address | [address] | | | [place] [address] | + + + | Phone | Unavailable | + + + Care Team Providers + + + + | Care Automotive Tire Tester Name | Role | Phone | + + + + Unavailable | Unavailable | + + + + Reason for Visit + + + | Reason For Visit Description | Start Date | + + + | General Notes | | + + + | | HPI Chief Complaint: LEFT foot sprain | | | HgbA1c: 5.6% Current Shoe Gear: Cam Boot | | | Bobby is in for management of LEFT foot | | | sprain. Patient is in office alone today. | | | Patient states he is still in a lot of | | | pain. Dr. Faust provided a small | | | prescription for Percocet , and he | | | asks for another prescription from me | | | today. Current Medications TYLENOL 8 | | | HOUR ARTHRITIS PAIN 650 MG ORAL TABLET | | | EXTENDED RELEASE (ACETAMINOPHEN) 1 tablet | | | every 4 hours as needed for pain/fever; | | | Route: ORAL MIRALAX ORAL POWDER | | | (POLYETHYLENE GLYCOL 3350) Mix 17gm of | | | powder with liquid per day; Route: ORAL | | | CARDIZEM 60 MG ORAL TABLET (DILTIAZEM HCL) | | | 1 by mouth twice daily for 8 weeks; | | | Route: ORAL BENTYL 10 MG ORAL CAPSULE | | | (DICYCLOMINE HCL) 1 by mouth 4 times a day | | | as needed for abdomen cramping ULTRAM 50 | | | MG ORAL TABLET (TRAMADOL HCL) 1 by mouth | | | every 6 hours as needed; Route: ORAL | | | CLINDAMYCIN HCL 300 MG ORAL CAPSULE | | | (CLINDAMYCIN HCL) ; Route: ORAL PERCOCET | | | 10-325 MG ORAL TABLET | | | (OXYCODONE-ACETAMINOPHEN) ; Route: ORAL | | | Current Allergies SULFA (SULFADIAZINE) | | | (Critical) Updated medication list with | | | Patient and states no new allergies. | | | .......................................... | | | .........................Skye Mac | | | [facility] September 03, 2019 8:40 AM Medical | | | History Sinus Mass 05/2017 TOTAL HIP | | | ARTHROPLASTY, LEFT (ICD-V43.64) | | | (AMH68-E25.642) HYPERTENSION (ICD-401.9) | | | (KRN06-I38) ELEVATED BLOOD SUGAR | | | (ICD-790.29) (XBR25-C97.9) NICOTINE | | | ADDICTION (ICD-305.1) (HXM72-K28.200) | | | AVASCULAR NECROSIS OF FEMORAL HEAD | | | (ICD-733.42) (NGU81-W37.059) OTHER | | | OSTEONECROSIS, LEFT FEMUR (QRD65-N30.852) | | | OPIOID ABUSE, CONTINUOUS (ICD-305.51) | | | (CKJ44-H74.10) HIP PAIN, LEFT | | | (ICD-719.45) (TJG44-T10.552) LESION OF | | | PLANTAR NERVE [...] Social History | | | 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 Weight: 236 | | | lbs. Temp: 99.4deg. BMI: 33.03 Wt chg: | | | 0.20 BMI Recommendation: Physical | | | Activity BP #1: 140/92 Position:sitting | | | Site:left arm Vitals entered by: Skye | | | Bubba RAYMOND on September 03, 2019 8:41 AM | | | Review of Symptoms Positive for | | | difficulty walking. All other systems are | | | reviewed and are negative. Risk | | | Factors Tobacco Use: Former smoker | | [...] response. No clonus. | | | MSK: VIBRATORY testing (tuning fork at | | | the 5th met head) reproduces pain at the | | | 5th met base, insertion of the peroneus | | | brevis tendon. Pain reproduced on | | | palpation posterior to the lateral | | | malleolus, LEFT ankle. As well, in the | | | area of the ATFL and along the course of | | | the peroneal brevis to its insertion at | | | the fifth metatarsal base. Some pain on | | | range of motion testing at the fourth and | | | fifth metatarsal cuneiform joints. No | | | crepitus appreciable. Otherwise, | | | inspection and palpation of bones, joints | | | and muscles is unremarkable. Muscle | | | strength full and strength symmetric, | | | normal muscle tone without any atrophy or | | | abnormal movements. Muscle strength is | | | 5/5 in all 4 quadrants. Skin: Normal skin | | | is intact with no unusual lesions or | | | changes. Assessment/Plan | | | Diagnosis: PERONEAL TENDINITIS- LEFT LEG | | | (ICD-726.79) (ZRI86-C13.72) Mr. Reid | | | was examined today and discussion had | | | regarding continuing care, as well as | | | radiographs that were obtained at the | | | office today. -No fracture is seen. | | | --Referral provided today for PT. --He | | | will continue in his CAM boot until | | | released by his therapist. | | | ---Prescription for #10 Percocet 10/ | | | provided today to help with his PT. He | | | was told that I will not be able to | | | provide him another prescription for | | | narcotic medication after this. --RTO | | | in 4 weeks for follow up. Meaningful | | | Use Med List: (Reconciled) ] | | | | + + + Assessments No information available. Chief Complaint + + + | Chief Complaint Description | Start Date | + + + | LEFT foot sprain | | + + + History of Past Illness No information available."
--- OUTSIDE RECORDS SUMMARY | ~2019-09-25 | XMS | Clinical Summary ---
Demographics + + + | Address | [address] | | | [place], [place] [address] | + + + | Home Phone | | + + + | Preferred Language | Unknown | + + + | Marital Status | S | + + + | Jain Affiliation | Unknown | + + + | Race | White | + + + | Ethnic Group | Not or | + + + Author + + + | Author | [facility] | + + + | Organization | [facility] | + + + | Address | [address] | | | [place] [address] | + + + | Phone | Unavailable | + + + Care Team Providers + + + + | Care Receiving Checker Name | Role | Phone | + [...] tion | | +---------+---------+---------+---------+---------+---------+---------+---------+---------+ | SPRAIN | [id number] | | Active | | Darrel | | Sprain | | | OF | | | | | [place] | | of foot | | | [...] | | | +---------+---------+---------+---------+---------+---------+---------+---------+---------+ | PERONEA | [id number] | | Active | | Darrel | | [place]onea | | | L | [id number] | | | | [place] | | l | | | TENDINI [...] limb | | +---------+---------+---------+---------+---------+---------+---------+---------+---------+ | ABDOMIN | [id number] | | Active | | Gigi | | Stomach | | | AL | 9 | | | | Holling | | cramps | | | CRAMPS | (SNOMED | | | | sead | | | | | | CT) | | | | FILM SPOOLER | | | | +---------+---------+---------+---------+---------+---------+---------+---------+---------+ | PAIN IN | [id number] | | Active | | Prabhakar | | Pain in | | | RIGHT | [id number] | / | | | | | right | | | HIP | 2 | | | | [place] | | hip | | | | (SNOMED | | | | oy MD | | joint | | | | CT) | | | | | | | | +---------+---------+---------+---------+---------+---------+---------+---------+---------+ | RECTAL | [id number] | | Active | | Marisel | | Rectal | | | BLEEDIN | 2 | /11 | | /11 | Rubio | | hemorrh | | | G | (SNOMED | | | | FILM SPOOLER | | age | | | | CT) | | | | | | | | +---------+---------+---------+---------+---------+---------+---------+---------+---------+ | ANAL | [id number] | | Active | | Marielle | | Anal | jae Perez | | FISSURE | 6 | | | /30 | Kobe | | fissure | Alexander | | | (SNOMED | | | | CCMA | | | [place] | | | CT) | | | | | | | MD | +---------+---------+---------+---------+---------+---------+---------+---------+---------+ | LESION | [id number] | | Active | | David | | Nasal | | | OF | 06 | / | | / | Chicker | | septum | | | NASAL | (SNOMED | | | | ing [place] | | finding | | | SEPTUM | CT) | | | | | | | | +---------+---------+---------+---------+---------+---------+---------+---------+---------+ | HIP | [id number] | | Active | | Prabhakar | | Hip | | | PAIN, | 2 | /26 | | /26 | | | pain | | | LEFT | (SNOMED | | | | [place] | | | | | | CT) | | | | oy MD | | | | +---------+---------+---------+---------+---------+---------+---------+---------+---------+ | CONTROL | 6792375 | | Active | | Marisel | | Drug | | | LED | 03 | / | | / | Rubio | | therapy | | | SUBSTAN | (SNOMED | | | | FILM SPOOLER | | | | | CE | CT) | | | | | | finding | | | AGREEME | | | | | | | | | | NT | | | | | | | | | | SIGNED | | | | | | | | | +---------+---------+---------+---------+---------+---------+---------+---------+---------+ | NASAL | [id number] | | Active | | Marisel | | Mass of | | | MASS | 09 | /19 | | /19 | Rubio | | nose | | | | (SNOMED | | | | FILM SPOOLER | | | | | | CT) | | | | | | | | +---------+---------+---------+---------+---------+---------+---------+---------+---------+ | COSTOCH | [id number] | | Active | | Marisel | | Costal | | | ONDRITI | 4 | | | | Rubio | | chondri | | | S, LEFT | (SNOMED | | | | FILM SPOOLER | | tis | | | | CT) | | | | | | | | +---------+---------+---------+---------+---------+---------+---------+---------+---------+ | URI | [id number] | | Active | | Marisel | | Upper | | | | 9 | | | | Rubio | | respira | | | | (SNOMED | | | | FILM SPOOLER | | tory | | | | CT) | | | | | | infecti | | | | | | | | | | on | | +---------+---------+---------+---------+---------+---------+---------+---------+---------+ | RIB | [id number] | | Active | | Marisel | | Rib | | | PAIN ON | 02 | | | | Rubio | | pain | | | LEFT | (SNOMED | | | | FILM SPOOLER | | | | | SIDE | CT) | | | | | | | | +---------+---------+---------+---------+---------+---------+---------+---------+---------+ | POST- | [id number] | | Active | | Marisel | | Postvir | | | RAL | 04 | | | | Rubio | | al | | | COUGH | (SNOMED | | | | FILM SPOOLER | | cough | | | SYNDROM | CT) | | | | | | | | | E | | | | | | | | | +---------+---------+---------+---------+---------+---------+---------+---------+---------+ | EPISTAX | [id number] | | Active | | David | | Epistax | | | IS, | 1 | | | | Chicker | | is | | | RECURRE | (SNOMED | | | | ing [place] | | | | | NT | CT) | | | | | | | | +---------+---------+---------+---------+---------+---------+---------+---------+---------+ | NASAL | [id number] | | Active | | David | | Nasal | | | POLYP | 5 | / | | | Chicker | | polyp | | | | (SNOMED | | | | ing MA | | | | | | CT) | | | | | | | | +---------+---------+---------+---------+---------+---------+---------+---------+---------+ | BRONCHI | [id number] | | Active | | David | | Bronchi | | | TIS | 4 | /19 | | / | Chicker | | tis | | | | (SNOMED | | | | ing [place] | | | | | | CT) | | | | | | | | +---------+---------+---------+---------+---------+---------+---------+---------+---------+ | ACUTE | [id number] | | Active | | David | | Common | | | NASOPHA | 6 | / | | | Chicker | | cold | | | RYNGITI | (SNOMED | | | | ing MA | | | | | S | CT) | | | | | | | | +---------+---------+---------+---------+---------+---------+---------+---------+---------+ | ADJUSTM | 7259245 | | Active | | Mariah | [...] mood | | +---------+---------+---------+---------+---------+---------+---------+---------+---------+ | CHRONIC | 7956044 | | Active | | Faina | | Chronic | | | PAIN | 06 | / | | / | [place] | | pain | | | SYNDROM | (SNOMED | | | | TITLE CLERK | | syndrom | | | E | CT) | | | | | | e | | +---------+---------+---------+---------+---------+---------+---------+---------+---------+ | PAIN | [id number] | | Active | | Faina | | Psychal | | | DISORDE | | / | | / | [place] | | urban | | | R | (SNOMED | | | | TITLE CLERK | | | | | ASSOCIA [...] | | | +---------+---------+---------+---------+---------+---------+---------+---------+---------+ | ANEMIA | [id number] | | Active | | Florecita | | Anemia | | | | 00 | / | | | Suhr | | | | | | (SNOMED | | | | FILM SPOOLER-C | | | | | | CT) | | | | | | | | +---------+---------+---------+---------+---------+---------+---------+---------+---------+ | APHTHOU | [id number] | | Active | | Charlen | | Aphthou | | | S ULCER | 05 | | | / | e Pimentel | | s ulcer | | | OF | (SNOMED | | | | CCMA | | of | | | MOUTH | CT) | | | | | | mouth | | +---------+---------+---------+---------+---------+---------+---------+---------+---------+ | DIFFICU | [id number] | | Active | | Bobby | | Walking | | | LTY IN | 08 | / | | /20 | Hersche | | | | | WALKING | (SNOMED | | | | r DO | | disabil | | | | CT) | | | | | | ity | | +---------+---------+---------+---------+---------+---------+---------+---------+---------+ | TOTAL | [id number] | | Active | | Florecita | | Total | | | HIP | 7 | /17 | | /17 | Suhr | | replace | | | ARTHROP | (SNOMED | | | | FILM SPOOLER-C | | ment of | | | [...] , | -CM) | | | | FILM SPOOLER-C | | osteoar | | | LOCALIZ [...] | | | +---------+---------+---------+---------+---------+---------+---------+---------+---------+ | FOOT | [id number] | | Resolve | | Florecita | | Foot | | | PAIN, | 7 | /15 | d | /15 | Suhr | | pain | | | RIGHT | (SNOMED | | | | FILM SPOOLER-C | | | | | | CT) | | | | | | | | +---------+---------+---------+---------+---------+---------+---------+---------+---------+ | RECTAL | 6475034 | | Resolve | | Florecita | | Rectal | per | | BLEEDIN | | | d | | Suhr | | hemorrh | Sacred | | G | (SNOMED | | | | FILM SPOOLER-C | | age | Heart | | | CT) | | | | | | | [facility] | | | | | | | | | | nd ER | | | | | | | | | | visit | | | | | | | | | | 05/11/14 | +---------+---------+---------+---------+---------+---------+---------+---------+---------+ | ANAL | [id number] | | Resolve | | Florecita | | Anal | per Dr. | | FISSURE | | | d | | Suhr | | fissure | Alexander | | | (SNOMED | | | | FILM SPOOLER-C | | | [place] | | | CT) | | | | | | | MD | +---------+---------+---------+---------+---------+---------+---------+---------+---------+ | NEW | [id number] | | Resolve | | Florecita | | Procedu | | | PATIENT | 03 | / | d | / | Suhr | | re | | | | (SNOMED | | | | FILM SPOOLER-C | | carried | | | CONSULT | CT) | | | | | | out on | | | ATION | | | | | | | | | | | | | | | | | subject | | +---------+---------+---------+---------+---------+---------+---------+---------+---------+ | AVASCUL | [id number] | | Active | | Prabhakar | [...] femur | | +---------+---------+---------+---------+---------+---------+---------+---------+---------+ | URI | 4683089 | | Inactiv | | Loraine | [...] on | | +---------+---------+---------+---------+---------+---------+---------+---------+---------+ | HYPERTE | 9103120 | | Active | | Rudy | | Hyperte | | | NSION | 3 | /24 | | / | Monteir | | nsive | | | | (SNOMED | | | | o MD | | disorde | | | | CT) | | | | | | r | | +---------+---------+---------+---------+---------+---------+---------+---------+---------+ | ELEVATE | 5127035 | | Active | | Rudy | | Hypergl | | | D BLOOD | 7 | / | | | Monteir | | ycemia | | | SUGAR | (SNOMED | | | | o MD | | | | | | CT) | | | | | | | | +---------+---------+---------+---------+---------+---------+---------+---------+---------+ | NEW | [id number] | | Removed | | Rudy | [...] subject | | +---------+---------+---------+---------+---------+---------+---------+---------+---------+ | SCREENI | 2071576 | | Resolve | | Rudy | [...] ng | | +---------+---------+---------+---------+---------+---------+---------+---------+---------+ | SCREENI | 7678211 | | Resolve | | Rudy | [...] ng | | +---------+---------+---------+---------+---------+---------+---------+---------+---------+ | NICOTIN | 9257723 | | Active | | Prabhakar | | Nicotin | | | E | 8 | /08 | | /08 | | | e | | | ADDICTI | (SNOMED | | | | VanAnro | | depende | | | ON | CT) | | | | oy MD | | nce | | +---------+---------+---------+---------+---------+---------+---------+---------+---------+ | ASEPTIC | 6183558 | | Inactiv | | Ann | [...] hip | | +---------+---------+---------+---------+---------+---------+---------+---------+---------+ | URI | 3058577 | | Inactiv | | Phan | | Upper | | | | 9 | /19 | e | /19 | Middlek | | respira | | | | (SNOMED | | | | auff | | tory | | | | CT) | | | | FILM SPOOLER | | infecti | | | | | | | | | | on | | +---------+---------+---------+---------+---------+---------+---------+---------+---------+ | SORE | 3013891 | | Inactiv | | Phan | | Pain in | | | THROAT | 03 | /19 | e | /19 | Middlek | | throat | | | | (SNOMED | | | | auff | | | | | | CT) | | | | FILM SPOOLER | | | | +---------+---------+---------+---------+---------+---------+---------+---------+---------+ | OTHER | 0555174 | | Active | | Prabhakar | [...] | | | +---------+---------+---------+---------+---------+---------+---------+---------+---------+ | OPIOID | 8984296 | | Active | | Phan | | Nondepe | | | ABUSE, | | / | | / | Middlek | | ndent | | | CONTINU | (SNOMED | | | | auff | | opioid | | | OUS | CT) | | | | FILM SPOOLER | | abuse, | | | | | | | | | | continu | | | | | | | | | | ous | | +---------+---------+---------+---------+---------+---------+---------+---------+---------+ | HIP | 6130867 | | Active | | Phan | | Hip | | | PAIN, | 2 | /28 | | /28 | Middlek | | pain | | | LEFT | (SNOMED | | | | auff | | | | | | CT) | | | | FILM SPOOLER | | | | +---------+---------+---------+---------+---------+---------+---------+---------+---------+ | UPPER | [id number] | | Inactiv | | Malachi Levin [...] on | | +---------+---------+---------+---------+---------+---------+---------+---------+---------+ | BRACHIA | [id number] | | Inactiv | | Malachi Levin [...] | | | +---------+---------+---------+---------+---------+---------+---------+---------+---------+ | RIB | 9951806 | | Inactiv | | Malachi K | | Rib | | | PAIN | | e | | Dye | | pain | | | | (SNOMED | | | | ACNP | | | | | | CT) | | | | | | | | +---------+---------+---------+---------+---------+---------+---------+---------+---------+ | LESION | 1985637 | | Active | | Clementina | [...] | | | +---------+---------+---------+---------+---------+---------+---------+---------+---------+ | ANAL | [id number] | | Removed | | Karissa | | Anal | per | | FISSURE | 6 | | | | Sea | | fissure | Alexander | | | (SNOMED | | | | RN | | | [place] | | | CT) | | | | | | | MD | +---------+---------+---------+---------+---------+---------+---------+---------+---------+ | RECTAL | 7580878 | | Removed | | Rodrigo | [...] | 05/11/14 | +---------+---------+---------+---------+---------+---------+---------+---------+---------+ | SCREENI | 9980571 | | Removed | | Juan | [...] ng | | +---------+---------+---------+---------+---------+---------+---------+---------+---------+ | SCREENI | 5783878 | | Removed | | Andriy | | Alcohol | | | NG FOR | | | | | Padovic | | | | | ALCOHOL | (SNOMED | | | | h FILM SPOOLER | | consump | | | ISM | CT) | | | | | | tion | | | | | | | | | | screeni | | | | | | | | | | ng | | +---------+---------+---------+---------+---------+---------+---------+---------+---------+ | FOOT | [id number] | | Removed | | Skye | | Foot | | | PAIN, | 7 | /15 | | /15 | Epifanio | | pain | | | RIGHT | (SNOMED | | | | FILM SPOOLER | | | | | | CT) | | | | | | | | +---------+---------+---------+---------+---------+---------+---------+---------+---------+ Medications + + + + + + + + | Medication | Instructio | Start Date | Stop Date | Generic | NDC | Provider | | | ns | | | Name | | | + + + + + + + + | PERCOCET | 1 Tab by | | | OXYCODONE- | [id number] | Darrel | | 10-325 MG | mouth | | | ACETAMINOP | 0 | [place] DPM | | TABS | daily | | | HEN | | | + + + + + + + + | PERCOCET | | | | OXYCODONE- | [id number] | Skye | | 10-325 MG | | | | ACETAMINOP | 0 | Bubba | | TABS | | | | HEN | | CCMA | + + + + + + + + | NORCO | one tab by | | | HYDROCODON | [id number] | Skye | | 5-325 MG | mouth QHS | | | E-ACETAMIN | 1 | Bubba | | TABS | PRN pain | | | OPHEN | | CCMA | + + + + + + + + | PERCOCET | | | | OXYCODONE- | [id number] | Skye | | 5-325 MG | | | | ACETAMINOP | 0 | Bubba | | TABS | | | | HEN | | CCMA | + + + + + + + + | NORCO | one tab by | | | HYDROCODON | [id number] | Darrel | | 5-325 MG | mouth QHS | | | E-ACETAMIN | 1 | [place] DPM | | TABS | PRN pain | | | OPHEN | | | + + + + + + + + | PERCOCET | | | | OXYCODONE- | [id number] | Skye | | 5-325 MG | | | | ACETAMINOP | 0 | Bubba | | TABS | | | | HEN | | CCMA | + + + + + + + + | CLINDAMYCI | | | | CLINDAMYCI | [id number] | Skye | | N HCL 300 | | | | N HCL | 1 | Bubba | | MG CAPS | | | | | | CCMA | + + + + + + + + | ULTRAM 50 | 1 by mouth | | | TRAMADOL | [id number] | Gigi | | MG TABS | every 6 | | | HCL | 0 | [place] | | | hours as | | | | | d FILM SPOOLER | | | needed | | | | | | + + + + + + + + | BENTYL 10 | 1 by mouth | | | DICYCLOMIN | | Gigi | | MG ORAL | 4 times a | | | E HCL | | [place] | | CAPSULE | day as | | | | | d FILM SPOOLER | | | needed for | | | | | | | | abdomen | | | | | | | | cramping | | | | | | + + + + + + + + | FLEET | Insert 1 | | | BISACODYL | [id number] | Marisel | | BISACODYL | enema into | | | | 6 | Rubio FILM SPOOLER | | 10 MG/30ML | rectum | | | | | | | ENEM | may repeat | | | | | | | | next day | | | | | | | | PRN | | | | | | + + + + + + + + | CSA | | | | CSA | | Carissa | | SRCHC | | | | SRCHC | | CCMA, | | | | | | | | Case | | | | | | | | Ccie | + + + + + + + + | CARDIZEM | 1 by mouth | | | DILTIAZEM | [id number] | Marisel | | 60 MG TABS | twice | | | HCL | 7 | Rubio FILM SPOOLER | | | daily for | | | | | | | | 8 weeks | | | | | | + + + + + + + + | FLEET | Insert 1 | | | BISACODYL | [id number] | Marisel | | BISACODYL | enema into | | | | 6 | Rubio FILM SPOOLER | | 10 MG/30ML | rectum | | | | | | | ENEM | may repeat | | | | | | | | next day | | | | | | | | PRN | | | | | | + + + + + + + + | MIRALAX | Mix 17gm | | | POLYETHYLE | [id number] | Marisel | | POWD | of powder | | | NE GLYCOL | 2 | Rubio FILM SPOOLER | | | with | | | 3350 | | | | | liquid per | | | | | | | | day | | | | | | + + + + + + + + | TRAMADOL | Take 1 tab | | | TRAMADOL | [id number] | Davi | | HCL 50 MG | q 6 hours | | | HCL | 1 | Edison DO | | TABS | prn pain | | | | | | + + + + + + + + | COLACE 100 | Take 1 bid | | | DOCUSATE | [id number] | Davi | | MG CAPS | prn | | | SODIUM | 0 | Edison DO | | | constipati | | | | | | | | on | | | | | | + + + + + + + + | [facility] MILK | 5 ml po | | | MAGNESIUM | [id number] | Davi | | OF | mid [...] po q | | | OXYCODONE- | 9809682801 | Davi | | ACETAMINOP | 6 hrs prn | | | ACETAMINOP | 5 | [place]oyne DO | | HEN 5-325 | rectal | | | HEN | | | | MG TABS | pain | | | | | | + + + + + + + + | RECTIV 0.4 | 1 inch | | | NITROGLYCE | 6841325136 | Davi | | % OINT | [...] | 1 | | | HYDROCORTI | 9178819582 | Davi | | 25 25 MG [...] take 1tab | | | VARENICLIN | 3051661188 | Davi | | MG TABS | po daily | | | E TARTRATE | 6 | [place]oyne DO | + + + + + + + + | CHANTIX | follow | | | VARENICLIN | 7335056653 | Davi | | STARTING | instructio [...] 1 inch | | | NITROGLYCE | 3093361023 | Darius | | % OINT | [...] 1 tab | | | TRAMADOL | [id number] | Marisel | | HCL 50 MG | q 6 hours | | | HCL | 1 | Rubio GUPTAP | | TABS | prn pain | | | | | | + + + + + + + + | COLACE 100 | Take 1 bid | | | DOCUSATE | [id number] | Marisel | | MG CAPS | prn | | | SODIUM | 0 | Rubio GUPTAP | | | constipati | | | | | | | | on | | | | | | + + + + + + + + | [facility] MILK | 5 ml po | | | MAGNESIUM | 2296500815 | Marisel | | OF | mid prn | | | HYDROXIDE | 6 | Rubio GUPTAP | | MAGNESIA | constipati | | | | | | | 400 MG/5ML | on | | | | | | | SUSP | | | | | | | + + + + + + + + | ANECREAM5 | thin film | | | LIDOCAINE | 5197916489 | Darius | | 5 % CREA | to rectum | | | (ANORECTAL | 5 | Niels | | | tid prn | | | ) | | PA-C | | | pain | | | | | | + + + + + + + + | OXYCODONE- | 1 tab po q | | | OXYCODONE- | 0672538093 | Darius | | ACETAMINOP | 6 hrs prn | | | ACETAMINOP | 5 | Niels | | HEN 5-325 | rectal | | | HEN | | PA-C | | MG TABS | pain | | | | | | + + + + + + + + | ANACAINE | thin film | | | BENZOCAINE | 9134166478 | Darius | | 10 % OINT | to | | | | 1 | Neils | | | affected | | | [...] | 1 | | | HYDROCORTI | 9729696454 | Darius | | 25 25 MG [...] 1 by | | | OXYCODONE- | 1501939991 | Marisel | | 5-325 MG | mouth two | | | ACETAMINOP | 0 | Rubio GUPTAP | | TABS | times per | [...] 1 spray | | | FLUTICASON | 9544296365 | Marisel | | ALLERGY | eash | | | E | 2 | Rubio FILM SPOOLER | | RELIEF 50 | nostril | [...] 1 by | | | OXYCODONE- | 4640652469 | Marisel | | 5-325 MG | mouth two | | | ACETAMINOP | 0 | Rubio GUPTAP | | TABS | times per | [...] 1 by | | | TRAMADOL | 4947545649 | Marisel | | HCL 50 MG | mouth | | | HCL | 1 | Rubio FILM SPOOLER | | TABS | every 6 | | | | | | | | hours | | | | | | + + + + + + + + | PSEUDOEPHE | 1-2 | | | PSEUDOEPHE | 1823678509 | Marisel | | DRINE HCL | tablets | | | DRINE HCL | 2 | Rubio FILM SPOOLER | | 30 MG TABS | every [...] 1 to | | | GUAIFENESI | 6803600733 | Marisel | | N 200 MG | 2 tablets | | | N | 0 | Rubio FILM SPOOLER | | TABS | by mouth | [...] Take 1 | | | AMITRIPTYL | 3079459508 | Marisel | | MG ORAL | tab po QHS | | | INE HCL | 0 | Rubio FILM SPOOLER | | TABLET | | | | | | | + + + + + + + + | PSEUDOEPHE | 1-2 | | | PSEUDOEPHE | 5629183673 | Marisel | | DRINE HCL | tablets | | | DRINE HCL | 2 | Rubio FILM SPOOLER | | 30 MG TABS | every [...] 1 by | | | TRAMADOL | 2775524795 | Marisel | | HCL 50 MG | mouth | | | HCL | 1 | Rubio FILM SPOOLER | | TABS | every 6 | | | | | | | | hours | | | | | | + + + + + + + + | CHANTIX | follow | | | VARENICLIN | 0423848903 | Marisel | | STARTING | instructio | | | E TARTRATE | 3 | Rubio FILM SPOOLER | | MONTH LIZA | ns on [...] | 1-2 | | | PSEUDOEPHE | 5141361279 | Marisel | | DRINE HCL | tablets | | | DRINE HCL | 2 | Rubio FILM SPOOLER | | 30 MG TABS | every [...] 1 to | | | GUAIFENESI | 3113030194 | Marisel | | N 200 MG | 2 tablets | | | N | 0 | Rubio FILM SPOOLER | | TABS | by mouth | [...] 1 spray | | | FLUTICASON | 5355350243 | Marisel | | ALLERGY | eash | | | E | 2 | Rubio FILM SPOOLER | | RELIEF 50 | nostril | | | PROPIONATE | | | | MCG/ACT | once a day | | | | | | | SUSP | | | | | | | + + + + + + + + | TRAMADOL | 1-2 TAB | | | TRAMADOL | 4258090999 | David | | HCL 50 MG | BID PRN | | | HCL | 1 | [place] | | TABS | PAIN | | | | | MA | + + + + + + + + | NORCO | 1tab by | | | HYDROCODON | 9648039967 | David | | 7.5-325 MG | [...] tab BID | | | CYCLOBENZA | [id number] | David | | YESSY HCL | PRN muscle | | | YESSY HCL | 1 | [place] | | 10 MG TABS | pain | | | | | MA | + + + + + + + + | [facility] LYSINE | take 1 tab | | | LYSINE | 6481631405 | David | | 1000 MG | [...] | prn | | | MAGNESIUM | 2005545796 | David | | OF | constipati [...] | 17grams | | | POLYETHYLE | 7858065739 | David | | POWD | mixed [...] Apply prn | | | BALSAM | 1000823402 | David | | 650-72.5 | to [...] | 1 | | | BISACODYL | 3715501918 | David | | 10 MG | [...] 1 tab | | | WARFARIN | 9868278275 | David | | MG TABS | daily | | | SODIUM | 0 | [place] | | | | | | | | MA | + + + + + + + + | COLACE 100 | 1 cap BID | | | DOCUSATE | [id number] | David | | MG CAPS | | | | SODIUM | 0 | [place] | | | | | | | | MA | + + + + + + + + | LISINOPRIL | 1 tab one | | | LISINOPRIL | 6982829315 | David | | 20 MG | time per | | | | 1 | [place] | | TABS | day | | | | | MA | + + + + + + + + | ELAVIL 25 | Take 1 | | | AMITRIPTYL | 1031661131 | Rudy | | MG ORAL | tab po QHS | | | INE HCL | 0 | Yaquelin | | TABLET | | | | | | MD | + + + + + + + + | TRAMADOL | 1-2 TAB | | | TRAMADOL | 9837391604 | Rudy | | HCL 50 MG | BID PRN | | | HCL | 1 | Yaquelin | | TABS | PAIN | | | | | MD | + + + + + + + + | TRAMADOL | 1 TAB BID | | | TRAMADOL | 9093501942 | Rudy | | HCL 50 MG | PRN PAIN | | | HCL | 1 | Yaquelin | | TABS | | | | | | MD | + + + + + + + + | NORCO | 1tab by | | | HYDROCODON | [id number] | Rudy | | 7.5-325 MG | [...] TAB Q6 | | | TRAMADOL | [id number] | Prabhakar | | HCL 50 MG | HRS PRN | | | HCL | 1 | VanAnrooy | | TABS | PAIN | | | | | MD | + + + + + + + + | NORCO | 1tab po | | | HYDROCODON | [id number] | Rudy | | 7.5-325 MG | [...] tab po | | | HYDROCODON | [id number] | Karma | | 5-325 MG | QD | | | E-ACETAMIN | 1 | Berenice | | TABS | | | | OPHEN | | NCMA | + + + + + + + + | TRAMADOL | take 1 tab | | | TRAMADOL | [id number] | Karma | | HCL 50 MG | nightly | | | HCL | 1 | Berenice | | TABS | | | | | | NCMA | + + + + + + + + | NORCO | 1 tab po | | | HYDROCODON | [id number] | Rudy | | 5-325 MG | QD | | | E-ACETAMIN | 1 | Yaquelin | | TABS | | | | OPHEN | | MD | + + + + + + + + | TRAMADOL | take 1 tab | | | TRAMADOL | [id number] | Rudy | | HCL 50 MG | nightly | | | HCL | 1 | Yaquelin | | TABS | | | | | | MD | + + + + + + + + | NORCO | 1 every 8 | | | HYDROCODON | [id number] | Rudy | | 5-325 MG | hours as | | | E-ACETAMIN | 1 | Yaquelin | | TABS | needed | | | OPHEN | | MD | + + + + + + + + | OXYCODONE | 1 tab q 4 | | | OXYCODONE | [id number] | Karma | | HCL 15 MG | hrs PRN | | | HCL | 1 | Berenice | | TABS | pain | | | | | NCMA | + + + + + + + + | NORCO | 1 every 8 | | | HYDROCODON | [id number] | Prabhakar | | 5-325 MG | hours as | | | E-ACETAMIN | 1 | VanMelanie | | TABS | needed | | | OPHEN | | MD | + + + + + + + + | CYCLOBENZA | 1 tab BID | | | CYCLOBENZA | [id number] | Florecita | | YESSY HCL | PRN muscle | | | YESSY HCL | 1 | Suhr FILM SPOOLER-C | | 10 MG TABS | pain | | | | | | + + + + + + + + | PERCOCET | 1-2 tab q | | | OXYCODONE- | [id number] | Florceita | | 7.5-325 MG | 4 hrs for | | | ACETAMINOP | 0 | Suhr FILM SPOOLER-C | | TABS | pain, hold | | | HEN | | | | | if | | | | | | | | somnolent | | | | | | | | or asleep. | | | | | | + + + + + + + + | OXYCODONE | 1 tab q 4 | | | OXYCODONE | [id number] | Florecita | | HCL 15 MG | hrs PRN | | | HCL | 1 | Suhr FILM SPOOLER-C | | TABS | pain | | | | | | + + + + + + + + | [facility] LYSINE | take 1 tab | | | LYSINE | [id number] | Rudy | | 1000 MG | [...] take 1tab | | | VARENICLIN | [id number] | Rudy | | MG TABS | po daily | | | E TARTRATE | 6 | Yaquelin | | | | | | | | MD | + + + + + + + + | [facility] | prn | | | MAGNESIUM | [id number] | Melvina | | OF | constipati | | | HYDROXIDE | 5 | Margarito LOUISA | | MAGNESIA | on | | | | | | | 1200 | | | | | | | | MG/15ML | | | | | | | | SUSP | | | | | | | + + + + + + + + | MIRALAX | 17grams | | | POLYETHYLE | [id number] | Melvina | | POWD | mixed [...] Apply prn | | | BALSAM | [id number] | Bobby | | 650-72.5 | to lower | | | JOSEPH-GEOVANY | 3 | [place] | | MG/0.82ML | lip for | [...] tab q | | | OXYCODONE- | [id number] | Florecita | | 7.5-325 MG | 4 hrs for | | | ACETAMINOP | 0 | Suhr FILM SPOOLER-C | | TABS | pain, hold | | | HEN | | | | | if | | | | | | | | somnolent | | | | | | | | or asleep. | | | | | | + + + + + + + + | TYLENOL 8 | 1 tablet | | | ACETAMINOP | [id number] | Bobby | | HOUR | every 4 | | | HEN | 1 | [place] | | ARTHRITIS | hours as | | | | | DO | | PAIN 650 | needed for | | | | | | | MG CR-TABS | | | | | | | | | pain/fever | | | | | | + + + + + + + + | PERCOCET | 1-2 tab q | | | OXYCODONE- | [id number] | Florecita | | 7.5-325 MG | 4 hrs PRN | | | ACETAMINOP | 0 | Suhr FILM SPOOLER-C | | TABS | pain, | | | HEN | | | | | dispense | | | | | | | | #84 | | | | | | + + + + + + + + | BISAC-EVAC | 1 | | | BISACODYL | [id number] | Florecita | | 10 MG | suppositor | | | | 1 | Suhr FILM SPOOLER-C | | RECTAL | y QHS PRN | | | | | | | SUPPOSITOR | constipati | | | | | | | Y | on | | | | | | + + + + + + + + | COUMADIN 4 | 1 tab | | | WARFARIN | [id number] | Florecita | | MG TABS | daily | | | SODIUM | 0 | Suhr FILM SPOOLER-C | + + + + + + + + | COLACE 100 | 1 cap BID | | | DOCUSATE | [id number] | Florecita | | MG CAPS | | | | SODIUM | 0 | Suhr FILM SPOOLER-C | + + + + + + + + | BI-MART | | | | BI-MART | | Florecita | | RSBG | | | | RSBG | | Suhr FILM SPOOLER-C | + + + + + + + + | CHANTIX 1 | 1 tab two | | | VARENICLIN | [id number] | Karma | | MG TABS | times per | | | E TARTRATE | 6 | Berenice | | | day | | | | | NCMA | + + + + + + + + | TESSALON | Take three | | | BENZONATAT | 0827799375 | Karma | | PERLES 100 | [...] 1 tab | | | HYDROCODON | [id number] | Karma | | E-ACETAMIN | po | | | E-ACETAMIN | 1 | [place] | | OPHEN | BID/PRN | | | OPHEN | | NCMA | | 7.5-325 MG | | | | | | | | TABS | | | | | | | + + + + + + + + | LISINOPRIL | 1 tab one | | | LISINOPRIL | [id number] | Rudy | | 20 MG | time per | | | | 1 | Yaquelin | | TABS | day | | | | | MD | + + + + + + + + | TESSALON | Take three | | | BENZONATAT | 1036062805 | Loraine | | RACHEL 100 | times a | | | E | 1 | Koko HINSON | | MG CAPS | day as [...] 1 tab | | | HYDROCODON | [id number] | Melvina | | E-ACETAMIN | po [...] 1tab po | | | VARENICLIN | 4337422353 | Rudy | | MG TABS | bid | | | E TARTRATE | 6 | Yaquelin | | | | | | | | MD | + + + + + + + + | HYDROCODON | Take 1 tab | | | HYDROCODON | 6229823556 | Rudy | | E-ACETAMIN | po [...] 2tabs po | | | VARENICLIN | 9239549412 | Rudy | | MG TABS | qd | | | E TARTRATE | 6 | Yaquelin | | | | | | | | MD | + + + + + + + + | LISINOPRIL | 1tab po qd | | | LISINOPRIL | 3483867379 | Rudy | | 20 MG | | | | | 1 | Yaquelin | | TABS | | | | | | MD | + + + + + + + + | TRAMADOL | 1 TAB Q6 | | | TRAMADOL | 8424910038 | Rudy | | HCL 50 MG [...] 3-4 per | | | OXYCODONE | 7139845153 | Rudy | | HCL 10 MG | day | | | HCL | 1 | Yaquelin | | TABS | | | | | | MD | + + + + + + + + | IBUPROFEN | three | | | IBUPROFEN | [id number] | Rudy | | 600 MG | times per | | | | 0 | Yaquelin | | TABS | day | | | | | MD | + + + + + + + + | TRAMADOL | 1 TAB Q6 | | | TRAMADOL | [id number] | Prabhakar | | HCL 50 MG | HRS PRN | | | HCL | 1 | VanAnrooy | | TABS | PAIN | | | | | MD | + + + + + + + + | LISINOPRIL | one time | | | LISINOPRIL | | Karma | | 20MG | per day | | | 20MG | | [place] | | | | | | | | NCMA | + + + + + + + + | OXYCODONE | 3-4 per | | | OXYCODONE | 7584192842 | Karma | | HCL 10 MG | day | | | HCL | 1 | [place] | | TABS | | | | | | NCMA | + + + + + + + + | GUAIFENESI | 1 tab | | | GUAIFENESI | 6984798838 | Karma | | N 400 MG | every 4 | | | N | 0 | [place] | | TABS | hours as | [...] 1 lozenge | | | BENZOCAINE | 5322442372 | Karma | | SORE | every [...] 4-6 per | | | HYDROCODON | 4775695849 | Karma | | 5-325 MG | day | | | E-ACETAMIN | 1 | [place] | | TABS | | | | [...] 1 tab | | | GUAIFENESI | 5657050924 | Phan | | N 400 MG | every 4 | | | N | 0 | [place] | | TABS | hours as | | | | | f FILM SPOOLER | | | needed for | | | | | | | | | | | | | | | | cough/yaw | | | | | | | | estion | | | | | | + + + + + + + + | CEPACOL | 1 lozenge | | | BENZOCAINE | [id number] | Phan | | SORE | every 2 | | | -MENTHOL | 0 | Middle[place] | | THROAT | hours as | | | | | f FILM SPOOLER | | 10-2.1 MG | needed for | | | | | | | LOZG | sore | | | | | | | | throat | | | | | | + + + + + + + + | IBUPROFEN | three | | | IBUPROFEN | 9449481742 | Prabhakar | | 600 MG | times per | | | | 0 | Van[place]oy | | TABS | day | | | | | MD | + + + + + + + + | NORCO | 4-6 per | | | HYDROCODON | 0247152829 | Prabhakar | | 5-325 MG | [...] 1 tab | | | OXYCODONE- | 2864513925 | Phan | | ACETAMINOP | by mouth | | | ACETAMINOP | 5 | [place] | | HEN 5-325 | three | | | HEN | | f FILM SPOOLER | | MG TABS | times per [...] 1 tab | | | PSEUDOEPHE | 6414330183 | Phan | | DRINE HCL | by mouth | | | DRINE HCL | 2 | [place] | | 30 MG TABS | four times | | | | | f FILM SPOOLER | | | per day | | [...] Inhale 2 | | | ALBUTEROL | 1669231673 | Phan | | 108 (90 | puffs | | | SULFATE | 2 | [place] | | Base) | every 4 | | | | | f FILM SPOOLER | | MCG/ACT | hours as | [...] 1 tablet | | | MELOXICAM | 9684065348 | Phan | | MG TABS | by mouth | | | | 1 | [place] | | | daily. | | | | | f FILM SPOOLER | | | Must last | | [...] | | | AGREEMENT | | Vanessa MENDEZ | | D RATHER | on | | | D RATHER | | | | | 1.12.15 | | | | | | | | signed | | | | | | | | 1.2.15 | | | | | | + + + + + + + + | PREDNISONE | Take 3 | | | PREDNISONE | 1466136098 | Malachi Levin | | 20 MG [...] 1 tab | | | PSEUDOEPHE | 1440641613 | Malachi Levin | | DRINE HCL [...] Inhale 2 | | | ALBUTEROL | 5479805903 | Malachi Levin | | 108 (90 [...] Take 1 | | | DOXYCYCLIN | 3094950849 | Malachi Levin | | E HYCLATE [...] tab by | | | CLINDAMYCI | 9087490628 | Malachi Levin | | N HCL [...] Take 1 | | | GABAPENTIN | 3180519775 | Malachi Levin | | 300 MG [...] 1 tab | | | CYCLOBENZA | 1198763876 | Malachi Levin | | YESSY HCL [...] 1 tab | | | OXYCODONE- | 6110287175 | Malachi Levin | | ACETAMINOP | [...] po bid | | | HYDROCODON | 7219400523 | Cyndi Crowley | | E-ACETAMIN | [...] | | | PAIN | | Cyndi Crwoley | | AGREEMENT | agreement | | [...] | | | UDS | | Cyndi [place] | | | consistent | | | | | NCMA | + + + + + + + + | PAIN | signed | | | PAIN | | Cyndi [place] | | AGREEMENT | 1.2.15 | | | AGREEMENT | | NCMA | | D RATHER | | | | D RATHER | | | + + + + + + + + | HYDROCODON | 1 po bid | | | HYDROCODON | [id number] | Tommy | | E-ACETAMIN | prn [...] tab by | | | CLINDAMYCI | 7692478031 | Tommy | | N HCL 150 [...] 1 tablet | | | MELOXICAM | 3082079311 | Jovany | | MG TABS | [...] | | | | | | | FILM SPOOLER | + + + + + + + + | IBUPROFEN | 4 By mouth | | | IBUPROFEN | [id number] | Andriy | | 200 MG | 3 times a | | | | 1 | Padovich | | TABS | day | | | | | FILM SPOOLER | + + + + + + [...] | | | | | | | FILM SPOOLER | + + + + + + [...] | | | | | | | FILM SPOOLER | +---------+ + + + + + | CODEINE | Itch | | Critical | No Longer | Skye | | | | | | Active | Epifanio FILM SPOOLER | +---------+ + + + + + | SULFA | Break out in | | Critical | | Skye | | | lashon | | | | Epifanio FILM SPOOLER | +---------+ + + + + + Results No information available. Plan of Care + + + + | Type | Date | Detail | + + + + | Appointment | 10:30 AM | Darrel ROYM, [address] | | | | [address], | | | | [place], [address], | | | | | + + + + | Referral | | GI Consult | | | | DO Jcarlos Cuba IV, | | | | [address] | | | | [facility], [place], [place], | | | | [address] | | | | | + + + + +---+ + | | Referral excluded from report: | +---+ + + + + + | Referral | | GI Consult | | | | DO Jcarlos Cuba IV, | | | | [address] | | | | [place] [address], [place], [place], | | | | [address] | | | | | + + + + | Referral | | Other Referral | | | | Hugo Matta [address] [place] [address] | | | | Jodi Gaona [facility], | | | | [place], [address] | | | | | + + + + +---+ + | | Referral excluded from report: | +---+ + + + + + | Referral | | Other Referral | | | | Other Provider, Specify | | | | Provider in Instructions | + + + + | Pending order | | XR Foot 3V-Lt | + + + + Procedures + + + + + | Code | Procedure Name | Date | Entry Date | + + + + + | [id number]-75865.TC | Foot 3V Left | | | + + + + + | [id number] | Overweight | | | + + + + + | [id number] | Overweight | | | + + + + + | [id number] | Medical | | | | | Contraindication | | | + + + + + | [id number] | Overweight | | | + + + + + | [id number] | Overweight | | | + + + + + | CPT-50932 | XR Hip W/Pelvis | | | | | 2-3V-Rt | | | + + + + + | [id number] | Overweight | | | + + + + + | [id number] | Overweight | | | + + + + + Vital Signs + + +-------+---------+ + | Date | Name | Value | Unit | Description | + + +-------+---------+ + | | BMI (Body Mass | 33.03 | kg/m2 | Body Mass Index | | | Index) | | | [Ratio] | + + +-------+---------+ + | | BP Diastolic | 92 | mm[Hg] | blood pressure, | | | | | | diastolic, | | | | | | second | | | | | | observation | + + +-------+---------+ + | | BP Diastolic | 92 | mm[Hg] | blood pressure, | | [...] + +-------+---------+ + | | Body | 99.4 | [degF] | temperature E&M | | | Temperature | | | | + + +-------+---------+ + | | Height | 71 | [in_us] | height E&M | + + +-------+---------+ + | | Weight Measured | 236 | [lb_av] | weight E&M | + + +-------+---------+ + | | BMI (Body Mass | 33.01 | kg/m2 | Body Mass Index | | | Index) | | | [Ratio] | + + +-------+---------+ + | | BP Diastolic | 84 | mm[Hg] | blood pressure, | | | | | | diastolic | + + +-------+---------+ + | | BP Systolic | 132 | mm[Hg] | blood pressure, | | | | | | systolic | + + +-------+---------+ + | | Height | 71 | [in_us] | height E&M | + + +-------+---------+ + | | Weight Measured | 235.8 | [lb_av] | weight E&M | + [...]
--- OUTSIDE RECORDS SUMMARY | ~2019-09-25 | XMS | Continuity of Care Document ---
Demographics + + + | Address | [address] | | | [place] [address] | + + + | Home Phone | | + + + | Preferred Language | Unknown | + + + | Marital Status | Unknown | + + + | Jehovah'S Witness Affiliation | Unknown | + + + | Race | Unknown | + + + | Ethnic Group | Unknown | + + + Author + + + | Author | [facility] | + + + | Organization | [facility] | + + + | Address | [address] | | | [place] [address] | + + + | Phone | | + + + Support + + + + + | Name | Relationship | Address | Phone | + + + + + | DOCTOR, NO PCP | Caregiver | [address] | | | | | [place] | | | | | [address] | | + + + + + | Daina Rogers | Caregiver | Emergency Services | | | [place] | | [place] [address] | | + + + + + | DEBBIE KUMAR | Next Of [facility] | [place] [address] | | + + + + + Care Team Providers + + + + | Care Office Communication Professor Name | Role | Phone | + + + + | IOANA CAMPO PCP | Unavailable | | + + + + Insurance Providers + + + + + | Payer Name | Policy Number | Subscriber Name | Relationship | + + + + + | [facility] | [id number] | BOBBY STODDARD | SELF | + + + + + Chief Complaint and Reason for Visit + +--------+ | Reason for Visit | DENTAL | + +--------+ Problems Active Medical Problems + + + [...] Active | + + + +--------+ | Dental infection | Unknown | 03/16/18 | Active | + + + +--------+ Medications Current Home Medications + +------+-------+-------+ + + + + | Medicati | Dose | Units | Route | Directio | Days/Qty | Instruct | Start | | on | | | | ns | | ions | Date | + +------+-------+-------+ + + + + | Penicill | 500 | MG | ORAL | Twice | 20 | | 03/16/18 | | in V | | | | Each Day | | | | | Potassiu | | | | for | | | | | m | | | | INFECTIO | | | | | (Veetids | | | | N | | | | | 500) | | | | | | | | | 500 MG | | | | | | | | | TABLET | | | | | | | | + +------+-------+-------+ + + + + | Tramadol | 50 | MG | ORAL | Every 6 | 10 | | 03/16/18 | | Hcl | | | | Hours as | | | | | (Ultram) | | | | needed | | | | | 50 MG | | | | for Pain | | | | | TABLET | [...] + + + | Dicyclomine Hcl | Three Times a Day | 10/03/17 | Discontinued | | (Dicyclomine Hcl) | for abdominal | | | | 10 Mg Capsule | cramping | | | | Capsule, 10 Mg Oral | | | | + [...] needed for Pain | | | | ([place] 5-325 | | | | | Tablet) 1 Each | | | | | Tablet Tablet, 1 | | | | | Tab Oral | | | | + + + + + | Hydrocodone | Every 4 Hours as | 01/13/15 | Discontinued | | Bit/Acetaminophen | Needed as needed | | | | ([place] 5-325 | for PAIN | | | | Tablet) 1 Each | | | | | Tablet Tablet, 1-2 | | | | | Tab Oral | | | | + + + + + | Hydrocodone/Acetami | | Unknown | Discontinued | | nophen ([place] | | | | | 5MG-325MG) 5 [...] Mg | Pain | | | | ([place] 10-325 Mg) | | | | | 10 Mg/325 Mg Tab | | | | | Tab, 0.5-1 Tab Oral | | | | + + + + + | Hydrocodone/Apap | Every 6 Hours | 08/15/16 | Discontinued | | 5-325 Mg ([place] | | | | | 5-325 Mg) [...] + + | Ondansetron (Zofran | Every 6 Hours for | 10/03/17 | Discontinued | | Odt) 4 Mg | Nausea | | | | Tab.rapdis | | | | | Tab.geovanni, 4 Mg | | | | | Oral | | | | + + + + + | Ondansetron (Zofran | Every 4 Hours as | 01/12/17 | Discontinued | | Odt) 4 Mg | needed for Nausea | | | | Tab.dollydis | | | | | Tab.geovanni, 1 Tab | | | | | Sublingual | | | | + + + + + | Ondansetron (Zofran | Every 8 Hours as | 01/08/17 | Discontinued | | Odt) 8 Mg | needed for Nausea | | | | Tab.dollydis | | | | | Tab.geovanni, 1 [...] Irritation | | | | Soln, 1 [place] Nasal | | | | + + [...] + + + | Discharge Date | 03/16/18 | + + + | Disposition | HOME | + + + | Condition at Discharge | Good | + + + | Instructions/Education Provided | Dental Pain | + + + | Prescriptions | See Medications Section | + + + | Referrals | NO PCP DOCTOR - | + + + | Additional Instructions/Education | Continue follow up with dentist | + + + Functional Status No functional status results. Allergies, Adverse Reactions, Alerts + +---------+ + +--------+ + | Allergen | Type | Severity | Reaction | Status | Last Updated | + +---------+ + +--------+ + | Sulfa | Allergy | Unknown | ANAPHYLAXIS, | Active | 03/16/18 | | (Sulfonamide | | | HIVES | | | | | | | | | | | Antibiotics) | | | | | | + +---------+ + +--------+ + | codeine | Allergy | Unknown | | Active | 03/16/18 | + +---------+ + +--------+ + Immunizations No Known History of Immunizations. Vital Signs + + + + | Vital Reading | Collection Date/Time | Result | + + + + | Blood Pressure | 03/16/18 12:10pm | 154/99 | + + + + | Blood Pressure Source | 06/17/16 4:24am | Right Arm | + + + + | Temperature | 03/16/18 11:46am | 97.9 F | + + + + | Temperature Source | 03/16/18 11:46am | Temporal | + + + + | Respiratory Rate | 03/16/18 11:46am | 20 | + + + + | Pulse Rate | 03/16/18 11:46am | 75 | + + + + | Bedside Pulse Oximetry | 03/16/18 11:46am | 98 | + + + + | Height | 18 11:46am | 6 ft 1 in | + + + + | Height | 18 11:46am | 185.42 cm | + + + + | Weight | 18 11:46am | 240 lb | + + + + | Weight | 11/16/18 11:46am | 108.86 kg | + + + + | Body Mass Index | 03/16/18 11:46am | 31.7 kg/m2 | + + + + Results No known relevant diagnostic tests, laboratory data and/or discharge summary. Procedures No Known History of Procedures. Encounters + + + + + + | Encounter | Location | Arrival/Admit | Discharge/Depar | Attending | | | | Date | t Date | Provider | + + + + + + | Departed | [facility] | 03/16/18 | 03/16/18 | Ken | | Emergency | [facility] | 11:44am | 12:23pm | Daina GONGORA | + + + + + + + + + | Encounter Diagnosis | Onset Date | + + + | Dental infection | | + + +"
--- OUTSIDE RECORDS SUMMARY | ~2019-09-25 | XMS | Continuity of Care Document ---
Demographics + + + | Address | [address] | | | [place] [address] | + + + | Home Phone | | + + + | Preferred Language | Unknown | + + + | Marital Status | Unknown | + + + | Yarsanism Affiliation | Unknown | + + + | Race | Unknown | + + + | Ethnic Group | Unknown | + + + Author + + + | Author | [facility] | + + + | Organization | [facility] | + + + | Address | [address] | | | [place] [address] | + + + | Phone | | + + + Support + + + + + | Name | Relationship | Address | Phone | + + + + + | NEHEMIAS Bergeron | Caregiver | [facility] | | | | | [place] [address] | | + + + + + | Madan Adamson | Caregiver | [address] | | | | | [place] | | | | | [address] | | + + + + + | DEBBIE KUMAR | Next Of Kin | [place] [address] | | + + + + + Care Team Providers + + + + | Care Gig Tender Name | Role | Phone | + + + + | NEHEMIAS Bergeron | Unavailable | | + + + + Insurance Providers + + + + + | Payer Name | Policy Number | Subscriber Name | Relationship | + + + + + | CALVIN Amarin | [id number] | BOBBY STODDARD | SELF | + [...] Active | + + + +--------+ | Acute chest pain | Unknown | 08/26/18 | Active | + + + +--------+ | Gastroenteritis | Unknown | 08/27/18 | Active | + + + +--------+ | Hypokalemia | Unknown | 08/27/18 | Active | + + + +--------+ | Colitis | Unknown | 12/24/18 | Active | + + + +--------+ Medications Current Home Medications + +------+-------+-------+ + + + + | Medicati | Dose | Units | Route | Directio | Days/Qty | Instruct | Start | | on | | | | ns | | ions | Date | + +------+-------+-------+ + + + + | Ciproflo | 500 | MG | ORAL | Twice | 7 Days | | 12/24/18 | | xacin | | | | Each Day | | | | | (CIPROFL | | | | for | | | | | OXACIN | | | | infectio | | | | | HCL) 500 | | | | n | | | | | MG TAB | | | | | | | | + +------+-------+-------+ + + + + | MetroNID | 500 | MG | ORAL | TID X 7 | 21 | | 12/24/18 | | AZOLE | | | | DAYS for | | | | | (Flagyl) | | | | | | | | | 500 MG | | | | infectio | | | | | TABLET | | | | n | | | | + +------+-------+-------+ + + + + | No | | | | | | | | | Historic | | | | | | | | | al | | | | | | | | | Medicati | | | | | | | | | ons . | | | | | | | | + +------+-------+-------+ + + + + | OxyCODON | 1 | TAB | ORAL | Every 6 | 15 | 1 - 2 | 12/24/18 | | E 5 | | | | Hours as | | TABS | | | mg/Aceta | | | | needed | | | | | min 325 | | | | for Pain | | | | | mg | | | | | | | | | (Percoce | | | | | | | | | t 5) | | | | | | | | | 1 TAB | | | | | | | | | TAB | | | | | | | | + +------+-------+-------+ + + + + Past Home Medications + + + + + | Medication | Directions | Ordered | Status | + + + + + | Albuterol | Every 6 Hours as | 01/13/15 | Discontinued | | (Proventil Hfa | needed for SOB | | | | Inhaler) 90 Mcg Inh | | | | | Inh, 1-2 Act | | | | | Inhalation | | | | + + + + + | Amoxicillin 100 % | Q8H | 05/07/03 | Discontinued | | Cap Cap, 500 Mg | | | | | Oral | | | | + + + + + | Cephalexin | Four Times a Day | 12/01/04 | Discontinued | | Monohydrate (Keflex | | | | | 500 Mg Cap) 500 Mg | | | | | Cap Cap, 500 Mg | [...] Day | 03/01/15 | Discontinued | | (Colace 100 Mg Cap) | for Constipation | | | | 100 Mg Cap Cap, | | | | | 100 Mg [...] + + + | Hydrocodone/Apap | Every 4 Hours as | 05/14/17 | Discontinued | | ([place] 5/325 | needed for Pain | | | | Tablet) 1 Each | | | | | Tablet Tablet, 1 | | | | | Tab Oral | | | | + + + + + | Hydrocodone/Apap | Every 4 Hours as | 01/13/15 | Discontinued | | ([place] 5/325 | Needed as needed | | | | Tablet) 1 Tab | for PAIN | | | | Tablet Tablet, 1-2 [...] | Unknown | Discontinued | | nophen ([place] | | | | | 5MG-325MG) 5 Mg-325 | | | | | Mg Tab [...] Mg | Pain | | | | ([place] 10-325 Mg) | | | | | 10 Mg-325 Mg Tab | | | | | Tab, 0.5-1 Tab Oral | | | | + + + + + | Hydrocodone/Apap | Every 6 Hours | 08/15/16 | Discontinued | | 5-325 Mg ([place] | | | | | 5-325 Mg) 1 Each | | | | | Tablet Tablet, 1 | | | | | Each Oral | | | | + + + + + | Hydrocortisone/Pram | 5 Times Each Day as | 03/01/15 | Discontinued | | oxine | needed for rectal | | | | (Proctofoam-Hc) 1 | pain | | | | %-1 % Foam Foam, 1 | | | | [...] + + + + + | Ibuprofen | Three Times a Day | Unknown | Discontinued | | (Advil/Motrin 800 | | | | | Mg Tab) 800 Mg Tab | | | | | Tab, 600 Mg Oral | | | | + + + + + | Ibuprofen | Three Times a Day | 05/20/16 | Discontinued | | (Advil/Motrin 800 | as needed for Pain | | | | Mg Tab) 800 Mg Tab | | | | | Tab, 800 Mg Oral | | | | + + + + + | Ketorolac | Four Times a Day | 09/10/18 | Discontinued | | Tromethamine | | | | | (Toradol) 10 Mg Tab | | | | | Tab, 10 Mg Oral | | | | + + + + + | Lisinopril (Zestril | Daily | Unknown | Discontinued | | 20 Mg Tab) 20 Mg | | | | | Tab Tab, 20 Mg Oral | | | | + + + + + | Loperamide Hcl | AFTER EACH LOOSE B | 08/27/18 | Discontinued | | (Loperamide) 2 Mg [...] Tab.rapdis | | | | | Tab.rapdis, 4 Mg | | | | | Oral | | | | + + + + + | Ondansetron (Zofran | Every 4 Hours as | 01/12/17 | Discontinued | | Odt) 4 Mg | needed for Nausea | | | | Tab.geovanni | | | | | Tab.geovanni, 1 Tab | | | | | Sublingual | | | | + + + + + | Ondansetron (Zofran | Every 8 Hours as | 01/08/17 | Discontinued | | Odt) 8 Mg | needed for Nausea | | | | Tab.geovanni | | | | | Tab.geovanni, 1 Tab | | | | | Sublingual | | | | + + + + + | Oxycodone 5 | Every 6 Hours as | 01/29/16 | Discontinued | | Mg/Acetamin 325 Mg | needed for Pain | | | | (Percocet 5/325) 1 | | | | | Each Tablet Tablet, | | | | | 1 Tab Oral | | | | + + + + + | Oxycodone/Acetamino | Every 4-6 Hours PRN | 02/09/07 | Discontinued | | phen (Percocet) 5 | Pain | | | | Mg-325 Mg Tab Tab, | | | | | 1-2 Tab Oral | | | | + + + + + | Oxymetazoline Hcl | Q12H as needed for | 05/14/17 | Discontinued | | (Nasal | Irritation | | | | Decongestant) 15 Ml | | | | | Doc Roach, [address] [place] | | | | | Nasal | | | | + + + + + | Prochlorperazine | Every 6 Hours | 09/10/18 | Discontinued | | Maleate (Compazine) | | | | | 10 Mg Tablet | | | | | Tablet, 10 Mg Oral | | | | + + + + + | Prochlorperazine | Every 6 Hours as | 08/27/18 | Discontinued | | Maleate (Compazine) | needed for Nausea | | | | 10 Mg Tablet | and vomiting | | | | Tablet, 10 Mg Oral | | | | + + + + + | Penicillin V | Twice Each Day for | 03/16/18 | Discontinued | | Potassium (Veetids | INFECTION | | | | 500) 500 Mg Tablet | | | | | Tablet, 500 Mg Oral | | | | + + + + + | Phe/Shark Liver | 5 Times Each Day as | 03/01/15 | Discontinued | | Oil/Glycer/Pet | needed for rectal | | | | (Preparation H) | pain | | | | 0.25 %-1 % Cr Cr, 1 | | | | | Applic Rectal | | | | + + [...] + + + | Promethazine Hcl | Four Times a Day as | 09/02/18 | Discontinued | | (Phenergan) 25 Mg | Needed as needed | | | | Tab Tab, 25-50 Mg | for Nausea & | | | | Oral | Vomiting | | | + + + + [...] | + + + + + | Tramadol Hcl | Every 6 Hours as | 03/16/18 | Discontinued | | (Ultram) 50 Mg | needed for Pain | | | | Tablet Tablet, 50 | | | | | Mg Oral [...] + + + | Discharge Date | 12/24/18 | + + + | Disposition | HOME | + + + | Condition at Discharge | Good | + + + | Instructions/Education Provided | Colitis | + + + | Prescriptions | See Medications Section | + + + | Referrals | Marisel Bergeron - | + + + | Additional Instructions/Education | take antibiotics as prescribed. Return to | | | ER if symptoms do not improve or getworse, | | | uncontrolled pain, fevers, chills, bloody | | | stool, or as needed. | + + + Functional Status No functional status results. Allergies, Adverse Reactions, Alerts + +---------+ + +--------+ + | Allergen | Type | Severity | Reaction | Status | Last Updated | + +---------+ + +--------+ + | Sulfa | Allergy | Unknown | ANAPHYLAXIS, | Active | 12/24/18 | | (Sulfonamide | | | HIVES | | | | | | | | | | | Antibiotics) | | | | | | + +---------+ + +--------+ + Immunizations No Known History of Immunizations. Vital Signs + + + + | Vital Reading | Collection Date/Time | Result | + + + + | Blood Pressure | 12/24/18 1:51pm | 154/98 | + + + + | Blood Pressure Source | 06/17/16 4:24am | Right Arm | + + + + | Temperature | 12/24/18 9:20am | 98.0 F | + + + + | Temperature Source | 12/24/18 9:20am | Temporal | + + + + | Respiratory Rate | 12/24/18 1:51pm | 16 | + + + + | Pulse Rate | 12/24/18 1:51pm | 74 | + + + + | Bedside Pulse Oximetry | 12/24/18 1:51pm | 97 | + + + + | Height | 12/24/18 9:20am | 6 ft 1 in | + + + + | Height | 12/24/18 9:20am | 185.42 cm | + + + + | Weight | 08/26/19 9:20am | 225 lb | + + + + | Weight | 12/24/18 9:20am | 102.06 kg | + + + + | Body Mass Index | 12/24/18 9:20am | 29.7 kg/m2 | + + + + Results [...] + + + + | White | 5.03 | K/mm3 | | 4.00-11. | 12/24/18 | 12/24/18 | | | Blood | | | | 30 | 10:15am | 10:38am | | | Count | | | | | | | | + +--------+ +-------+ + + + + | Red | 5.44 | M/mm3 | | 4.30-5.9 | 12/24/18 | 12/24/18 | | | Blood | | | | 0 | 10:15am | 10:38am | | | Count | | | | | | | | + +--------+ +-------+ + + + + | Hemoglob | 16.8 | g/dL | | 13.5-17. | 12/24/18 | 12/24/18 | | | in | | | | 5 | 10:15am | 10:38am | | + +--------+ +-------+ + + + + | Hematocr | 49.5 | % | | 37.0-53. | 12/24/18 | 12/24/18 | | | it | | | | 0 | 10:15am | 10:38am | | + +--------+ +-------+ + + + + | Mean | 91 | fL | | 80-100 | 12/24/18 | 12/24/18 | | | Corpuscu | | | | | 10:15am | 10:38am | | | lar | | | | | | | | | Volume | | | | | | | | + +--------+ +-------+ + + + + | Mean | 30.9 | pg | | 26.0-34. | 12/24/18 | 12/24/18 | | | Corpuscu | | | | 0 | 10:15am | 10:38am | | | lar | | | | | | | | | Hemoglob | | | | | | | | | in | | | | | | | | + +--------+ +-------+ + + + + | Mean | 33.9 | g/dL | | 31.5-36. | 12/24/18 | 12/24/18 | | | Corpuscu | | | | 5 | 10:15am | 10:38am | | | lar | | | | | | | | | Hemoglob | | | | | | | | | in | | | | | | | | | Concent | | | | | | | | + +--------+ +-------+ + + + + | RDW | 42.1 | fL | | 35.1-46. | 12/24/18 | 12/24/18 | | | Standard | | | | 3 | 10:15am | 10:38am | | | | | | | | | | | | Deviatio | | | | | | | | | n | | | | | | | | + +--------+ +-------+ + + + + | RDW | 12.6 | % | | 11.7-14. | 12/24/18 | 12/24/18 | | | Coeffici | | | | 2 | 10:15am | 10:38am | | | ent of | | | | | | | | | Variatio | | | | | | | | | n | | | | | | | | + +--------+ +-------+ + + + + | Platelet | 308 | K/mm3 | | 150-400 | 12/24/18 | 12/24/18 | | | Count | | | | | 10:15am | 10:38am | | + +--------+ +-------+ + + + + | Mean | 9.2 | fL | | 9.1-12.4 | 12/24/18 | 12/24/18 | | | Platelet | | | | | 10:15am | 10:38am | | | Volume | | | | | | | | + +--------+ +-------+ + + + + | Differen | Auto | | | | 12/24/18 | 12/24/18 | | | tial | | | | | 10:15am | 10:38am | | | Method | | | | | | | | + +--------+ +-------+ + + + + | Neutroph | 59 | % | | 41-73 | 12/24/18 | 12/24/18 | | | ils (%) | | | | | 10:15am | 10:38am | | | (Auto) | | | | | | | | + +--------+ +-------+ + + + + | Lymphocy | 27 | % | | 21-46 | 12/24/18 | 12/24/18 | | | wicho (%) | | | | | 10:15am | 10:38am | | | (Auto) | | | | | | | | + +--------+ +-------+ + + + + | Monocyte | 12 | % | | 4-13 | 12/24/18 | 12/24/18 | | | s (%) | | | | | 10:15am | 10:38am | | | (Auto) | | | | | | | | + +--------+ +-------+ + + + + | Eosinoph | 1 | % | | 0-6 | 12/24/18 | 12/24/18 | | | ils (%) | | | | | 10:15am | 10:38am | | | (Auto) | | | | | | | | + +--------+ +-------+ + + + + | Basophil | 1 | % | | 0-2 | 12/24/18 | 12/24/18 | | | s (%) | | | | | 10:15am | 10:38am | | | (Auto) | | | | | | | | + +--------+ +-------+ + + + + | Immature | 0 | % | | 0-1 | 12/24/18 | 12/24/18 | | | | | | | | 10:15am | 10:38am | | | Granuloc | | | | | | | | | yte % | | | | | | | | | (Auto) | | | | | | | | + +--------+ +-------+ + + + + | Nucleate | 0.0 | /100 WBC | | 0.0-0.2 | 12/24/18 | 12/24/18 | | | d Red | | | | | 10:15am | 10:38am | | | Blood | | | | | | | | | Cells % | | | | | | | | + +--------+ +-------+ + + + + | Absolute | 2.95 | K/mm3 | | 1.96-9.1 | 12/24/18 | 12/24/18 | | | | | | | 5 | 10:15am | 10:38am | | | Neutroph | | | | | | | | | ils | | | | | | | | | (auto) | | | | | | | | + +--------+ +-------+ + + + + | Absolute | 1.38 | K/mm3 | | 0.84-5.2 | 12/24/18 | 12/24/18 | | | | | | | 0 | 10:15am | 10:38am | | | Lymphocy | | | | | | | | | wicho | | | | | | | | | (auto) | | | | | | | | + +--------+ +-------+ + + + + | Absolute | 0.58 | K/mm3 | | 0.16-1.4 | 12/24/18 | 12/24/18 | | | | | | | 7 | 10:15am | 10:38am | | | Monocyte | | | | | | | | | s (auto) | | | | | | | | + +--------+ +-------+ + + + + | Absolute | 0.05 | K/mm3 | | 0.00-0.6 | 12/24/18 | 12/24/18 | | | | | | | 8 | 10:15am | 10:38am | | | Eosinoph | | | | | | | | | ils | | | | | | | | | (auto) | | | | | | | | + +--------+ +-------+ + + + + | Absolute | 0.06 | K/mm3 | | 0.00-0.2 | 12/24/18 | 12/24/18 | | | | | | | 3 | 10:15am | 10:38am | | | Basophil | | | | | | | | | s (auto) | | | | | | | | + +--------+ +-------+ + + + + | Absolute | 0.01 | K/mm3 | | 0.00-0.1 | 12/24/18 | 12/24/18 | | | | | | | 0 | 10:15am | 10:38am | | | Immature | | | [...] 0.00 | K/mm3 | | 0.00-0.0 | 12/24/18 | 12/24/18 | | | d RBC | | | | 2 | 10:15am | 10:38am | | | Absolute | | | | | | | | | Count | | | | | | | | | (auto) | | | | | | | | + +--------+ +-------+ + + + + | Sodium | 139 | mmol/L | | 136-145 | 12/24/18 | 12/24/18 | | | Level | | | | | 10:15am | 11:25am | | + +--------+ +-------+ + + + + | Potassiu | 3.5 | mmol/L | | 3.5-5.5 | 12/24/18 | 12/24/18 | | | m Level | | | | | 10:15am | 11:25am | | + +--------+ +-------+ + + + + | Chloride | 102 | mmol/L | | 98-108 | 12/24/18 | 12/24/18 | | | Level | | | | | 10:15am | 11:25am | | + +--------+ +-------+ + + + + | Carbon | 32 | mmol/L | | 21-32 | 12/24/18 | 12/24/18 | | | Dioxide | | | | | 10:15am | 11:25am | | | Level | | | | | | | | + +--------+ +-------+ + + + + | Anion | 5 | mmol/L | L | 6-16 | 12/24/18 | 12/24/18 | | | Gap | | | | | 10:15am | 11:25am | | + +--------+ +-------+ + + + + | Glucose | 119 | mg/dL | H | 70-99 | 12/24/18 | 12/24/18 | | | Level | | | | | 10:15am | 11:25am | | + +--------+ +-------+ + + + + | Blood | 14 | mg/dL | | 8-24 | 12/24/18 | 12/24/18 | | | Urea | | | | | 10:15am | 11:25am | | | Nitrogen | | | | | | | | + +--------+ +-------+ + + + + | Creatini | 0.75 | mg/dL | | 0.60-1.2 | 12/24/18 | 12/24/18 | | | ne | | | | 0 | 10:15am | 11:25am | | + +--------+ +-------+ + + + + | BUN/Crea | 18.7 | % | | 12.0-20. | 12/24/18 | 12/24/18 | | | tinine | | | | 0 | 10:15am | 11:25am | | | Ratio | | | | | | | | + +--------+ +-------+ + + + + | Glomerul | >60 | | | 60- | 12/24/18 | 12/24/18 | Non-Afri | | ar | | | | | 10:15am | 11:25am | can | | Filtrati | | | | | | | [place] | | on Rate | | | | | | | GFR | | Calc | | | | | | | CalcFor | | | | | | | | | | | | | | | | | | [place] | | | | | | | [...] + + + + | Calcium | 8.2 | mg/dL | L | 8.5-10.1 | 12/24/18 | 12/24/18 | | | Level | | | | | 10:15am | 11:25am | | + +--------+ +-------+ + + + + | Total | 6.9 | g/dL | | 6.4-8.2 | 12/24/18 | 12/24/18 | | | Protein | | | | | 10:15am | 11:25am | | + +--------+ +-------+ + + + + | Albumin | 3.5 | g/dL | | 3.4-5.0 | 12/24/18 | 12/24/18 | | | | | | | | 10:15am | 11:25am | | + +--------+ +-------+ + + + + | Globulin | 3.4 | g/dL | | 2.2-4.0 | 12/24/18 | 12/24/18 | | | | | | | | 10:15am | 11:25am | | + +--------+ +-------+ + + + + | Albumin/ | 1.0 | | | 0.8-1.8 | 12/24/18 | 12/24/18 | | | Globulin | | | | | 10:15am | 11:25am | | | Ratio | | | | | | | | + +--------+ +-------+ + + + + | Total | 1.0 | mg/dL | | 0.1-1.0 | 12/24/18 | 12/24/18 | | | Bilirubi | | | | | 10:15am | 11:25am | | | n | | | | | | | | + +--------+ +-------+ + + + + | Alkaline | 51 | U/L | | 50-136 | 12/24/18 | 12/24/18 | | | | | | | | 10:15am | 11:25am | | | Phosphat | | | | | | | | | ase | | | | | | | | + +--------+ +-------+ + + + + | Aspartat | 140 | U/L | H | 12-37 | 12/24/18 | 12/24/18 | | | e Amino | | | | | 10:15am | 11:25am | | | Transf | | | | | | | | | (AST/SGO | | | | | | | | | T) | | | | | | | | + +--------+ +-------+ + + + + | Alanine | 93 | U/L | H | 12-78 | 12/24/18 | 12/24/18 | | | Aminotra | | | | | 10:15am | 11:25am | | | nsferase | | | | | | | | | | | | | | | | | | (ALT/SGP | | | | | | | | | T) | | | | | | | | + +--------+ +-------+ + + + + | Lipase | 190 | U/L | | 73-393 | 12/24/18 | 12/24/18 | | | | | | | | 10:15am | 11:25am | | + +--------+ +-------+ + + + + Procedures No Known History of Procedures. Encounters + + + + + + | Encounter | Location | Arrival/Admit | Discharge/Depar | Attending | | | | Date | t Date | Provider | + + + + + + | Departed | [facility] | 12/24/18 8:37am | 12/24/18 1:56pm | Madan Adamson | | Emergency | [facility] | | | D DO | + + + + + + + + + | Encounter Diagnosis | Onset Date | + + + | Colitis | | + + +"
--- OUTSIDE RECORDS SUMMARY | ~2019-09-25 | XMS | Clinical Summary ---
Demographics + + + | Address | General Delivery | | | [place] [address] | + + + | Home Phone | ;ext=1 | + + + | Preferred Language | Unknown | + + + | Marital Status | U | + + + | Baptist Affiliation | Unknown | + + + | Race | White | + + + | Ethnic Group | Not or | + + + Author + + + | Author | [facility] | + + + | Organization | [facility] | + + + | Address | [address] | | | [place] [address] | + + + | Phone | Unavailable | + + + Care Team Providers + +------+ + | Care Gis Administrator Name | Role | Phone | + [...] | | tion | | +---------+---------+---------+---------+---------+---------+---------+---------+---------+ | ANEMIA | [id number] | | Active | | Florecita | | Anemia | | | | 00 | / | | / | Suhr | | | | | | (SNOMED | | | | SEWING MACHINE ASSEMBLER-C | | | | | | CT) | | | | | | | | +---------+---------+---------+---------+---------+---------+---------+---------+---------+ | APHTHOU | [id number] | | Active | | Luis | | Rosales | | | S ULCER | 05 | / | | /21 | page Pimentel | | s ulcer | | | OF | (SNOMED | | | | MA | | of | | | MOUTH | CT) | | | | | | mouth | | +---------+---------+---------+---------+---------+---------+---------+---------+---------+ | DIFFICU | [id number] | | Active | | Nayan | | Walking | | | LTY IN | 08 | /20 | | /20 | Hersche | | | | | WALKING | (SNOMED | | | | r DO | | disabil | | | | CT) | | | | | | ity | | +---------+---------+---------+---------+---------+---------+---------+---------+---------+ | TOTAL | [id number] | | Active | | Florecita | | Total | | | HIP | 7 | /17 | | /17 | Suhr | | replace | | | ARTHROP | (SNOMED | | | | SEWING MACHINE ASSEMBLER-C | | ment of | | | [...] , | -CM) | | | | SEWING MACHINE ASSEMBLER-C | | osteoar | | | LOCALIZ [...] | | | +---------+---------+---------+---------+---------+---------+---------+---------+---------+ | FOOT | [id number] | | Resolve | | Florecita | | Foot | | | PAIN, | 7 | / | d | /15 | Suhr | | pain | | | RIGHT | (SNOMED | | | | SEWING MACHINE ASSEMBLER-C | | | | | | CT) | | | | | | | | +---------+---------+---------+---------+---------+---------+---------+---------+---------+ | RECTAL | [id number] | | Resolve | | Florecita | | Rectal | per | | BLEEDIN | 2 | /15 | d | /15 | Suhr | | hemorrh | Sacred | | G | (SNOMED | | | | SEWING MACHINE ASSEMBLER-C | | age | Heart | | | CT) | | | | | | | [facility] | | | | | | | | | | nd ER | | | | | | | | | | visit | | | | | | | | | | 05/11/14 | +---------+---------+---------+---------+---------+---------+---------+---------+---------+ | ANAL | [id number] | | Resolve | | Florecita | | Anal | per | | FISSURE | 6 | /30 | d | /30 | Suhr | | fissure | Alexander | | | (SNOMED | | | | SEWING MACHINE ASSEMBLER-C | | | [place] | | | CT) | | | | | | | MD | +---------+---------+---------+---------+---------+---------+---------+---------+---------+ | NEW | [id number] | | Resolve | | Florecita | | Procedu | | | PATIENT | 03 | /24 | d | /24 | Suhr | | re | | | | (SNOMED | | | | SEWING MACHINE ASSEMBLER-C | | carried | | | CONSULT | CT) | | | | | | out on | | | ATION | | | | | | | | | | | | | | | | | subject | | +---------+---------+---------+---------+---------+---------+---------+---------+---------+ | AVASCUL | [id number] | | Active | | Prabhakar | | Avascul | | | AR | 03 | / | | /28 | | | ar | | | NECROSI | (SNOMED | | | | Adrianro | | necrosi | | | S OF | CT) | | | | oy MD | | s of | | | FEMORAL | | | | | | | the | | | HEAD | | | | | | | head of | | | | | | | | | | femur | | +---------+---------+---------+---------+---------+---------+---------+---------+---------+ | URI | [id number] | | Inactiv | | Loraine | | Upper | | | | 9 | / | e | /03 | Sutherland | | respira | | | | (SNOMED | | | | PA-C | | tory | | | | CT) | | | | | | infecti | | | | | | | | | | on | | +---------+---------+---------+---------+---------+---------+---------+---------+---------+ | HYPERTE | [id number] | | Active | | Rudy | | Hyperte | | | NSION | 3 | /24 | | /24 | Monteir | | nsive | | | | (SNOMED | | | | o MD | | disorde | | | | CT) | | | | | | r | | +---------+---------+---------+---------+---------+---------+---------+---------+---------+ | ELEVATE | [id number] | | Active | | Rudy | | Hypergl | | | D BLOOD | 7 | /24 | | /24 | Monteir | | ycemia | | | SUGAR | (SNOMED | | | | o MD | | | | | | CT) | | | | | | | | +---------+---------+---------+---------+---------+---------+---------+---------+---------+ | NEW | [id number] | | Removed | | Rudy | [...] subject | | +---------+---------+---------+---------+---------+---------+---------+---------+---------+ | SCREENI | [id number] | | Resolve | | Rudy | [...] ng | | +---------+---------+---------+---------+---------+---------+---------+---------+---------+ | SCREENI | [id number] | | Resolve | | Rudy | [...] ng | | +---------+---------+---------+---------+---------+---------+---------+---------+---------+ | NICOTIN | [id number] | | Active | | Prabhakar | | Nicotin | | | E | 8 | | | | | | e | | | ADDICTI | (SNOMED | | | | VanMarinero | | depende | | | ON | CT) | | | | oy MD | | nce | | +---------+---------+---------+---------+---------+---------+---------+---------+---------+ | ASEPTIC | 6985979 | | Inactiv | | Ann | | Aseptic | | | | 05 | | e | | Yarbrou | | | | | [...] hip | | +---------+---------+---------+---------+---------+---------+---------+---------+---------+ | URI | [id number] | | Inactiv | | Phan | | Upper | | | | 9 | / | e | /19 | Middlek | | respira | | | | (SNOMED | | | | auff | | tory | | | | CT) | | | | SEWING MACHINE ASSEMBLER | | infecti | | | | | | | | | | on | | +---------+---------+---------+---------+---------+---------+---------+---------+---------+ | SORE | [id number] | | Inactiv | | Phan | | Pain in | | | THROAT | 03 | / | e | / | Middlek | | throat | | | | (SNOMED | | | | auff | | | | | | CT) | | | | SEWING MACHINE ASSEMBLER | | | | +---------+---------+---------+---------+---------+---------+---------+---------+---------+ | OTHER | 9655190 | | Active | | Prabhakar | [...] | | | +---------+---------+---------+---------+---------+---------+---------+---------+---------+ | OPIOID | [id number] | | Active | | Phan | | Nondepe | | | ABUSE, | 05 | /28 | | / | Middlek | | ndent | | | CONTINU | (SNOMED | | | | auff | | opioid | | | OUS | CT) | | | | SEWING MACHINE ASSEMBLER | | abuse, | | | | | | | | | | continu | | | | | | | | | | ous | | +---------+---------+---------+---------+---------+---------+---------+---------+---------+ | HIP | [id number] | | Active | | Phan | | Hip | | | PAIN, | 2 | / | | / | Middlek | | pain | | | LEFT | (SNOMED | | | | auff | | | | | | CT) | | | | SEWING MACHINE ASSEMBLER | | | | +---------+---------+---------+---------+---------+---------+---------+---------+---------+ | UPPER | [id number] | | Inactiv | | Malachi Levin [...] on | | +---------+---------+---------+---------+---------+---------+---------+---------+---------+ | BRACHIA | [id number] | | Inactiv | | Malachi Levin | | Brachia | | | L | | | | Dye | | l | [...] | | | +---------+---------+---------+---------+---------+---------+---------+---------+---------+ | RIB | [id number] | | Inactiv | | Malachi Levin | | Rib | | | PAIN | | | | Dye | | pain | | | | (SNOMED | | | | ACNP | | | | | | CT) | | | | | | | | +---------+---------+---------+---------+---------+---------+---------+---------+---------+ | LESION | [id number] | | Active | | Clementina | [...] | | | +---------+---------+---------+---------+---------+---------+---------+---------+---------+ | ANAL | [id number] | | Removed | | Karissa | | Anal | per Dr. | | FISSURE | 6 | / | | / | Sea | | fissure | Alexander | | | (SNOMED | | | | RN | | | [place] | | | CT) | | | | | | | MD | +---------+---------+---------+---------+---------+---------+---------+---------+---------+ | RECTAL | [id number] | | Removed | | Rodrigo | | Rectal | per | | BLEEDIN | 2 | | | | Jatin | | hemorrh | Chris | | G | (SNOMED | | [...] | 05/11/14 | +---------+---------+---------+---------+---------+---------+---------+---------+---------+ | SCREENI | 9107851 | | Removed | | Juan | [...] ng | | +---------+---------+---------+---------+---------+---------+---------+---------+---------+ | SCREENI | 2978985 | | Removed | | Andriy | | Alcohol | | | NG FOR | | / | | | Padovic | | | | | ALCOHOL | (SNOMED | | | | h SEWING MACHINE ASSEMBLER | | consump | | | ISM | CT) | | | | | | tion | | | | | | | | | | screeni | | | | | | | | | | ng | | +---------+---------+---------+---------+---------+---------+---------+---------+---------+ | FOOT | [id number] | | Removed | | Skye | | Foot | | | PAIN, | 7 | /15 | | /15 | Epifanio | | pain | | | RIGHT | (SNOMED | | | | SEWING MACHINE ASSEMBLER | | | | | | CT) [...] | 1 | | | BISACODYL | [id number] | Florecita | | 10 MG | suppositor | | | | 0 | Suhr SEWING MACHINE ASSEMBLER-C | | SUPP | y QHS PRN | | | | | | | | constipati | | | | | | | | on | | | | | | + + + + + + + + | OXYCODONE | 3-4 per | | | OXYCODONE | 9384566561 | Rudy | | HCL 10 MG | day | | | HCL | 8 | Yaquelin | | TABS | | | | | | MD | + + + + + + + + | MIRALAX | 17grams | | | POLYETHYLE | [id number] | Melvina | | POWD | mixed in | | | NE GLYCOL | 1 | Margarito [place] | | | 6-8ounces | | | 3350 | | | | | of fluid | | | | | | | | po daily | | | | | | + + + + + + + + | TESSALON | Take three | | | BENZONATAT | 1872288812 | Karma | | PERLES 100 | [...] | three | | | IBUPROFEN | 1219458763 | Prabhakar | | 600 MG | times per | | | | 6 | VanAnrooy | | TABS | day | | | | | MD | + + + + + + + + | AMBERDERM | Apply prn | | | BALSAM | 7372560834 | Nayan | | 650-72.5 | to lower | | | JOSEPH-GEOVANY | 3 | Hatch | | MG/0.82ML | lip for | [...] | | | RSBG | | Mariselahr SEWING MACHINE ASSEMBLER-C | + + + + + + + + | CEPACOL | 1 lozenge | | | BENZOCAINE | 4433792219 | Karma | | SORE | every [...] | | | PAIN | | Cyndi [place] | | AGREEMENT | 1.2.15 | | | AGREEMENT | | NCMA | | D RATHER | | | | D RATHER | | | + + + + + + + + | UDS | 1.2.15 | | | UDS | | Cyndi [place] | | | consistent | | | | | NCMA | + + + + + + + + | TYLENOL 8 | 1 tablet | | | ACETAMINOP | 5002634751 | Nayan | | HOUR | every 4 | | | HEN | 1 | Hatch | | ARTHRITIS | hours as | [...] cap BID | | | DOCUSATE | [id number] | Florecita | | MG CAPS | | | | SODIUM | 0 | Suhr SEWING MACHINE ASSEMBLER-C | + + + + + + [...] tab BID | | | CYCLOBENZA | [id number] | Florecita | | YESSY HCL | PRN muscle | | | YESSY HCL | 0 | Suhr SEWING MACHINE ASSEMBLER-C | | 10 MG TABS | pain [...] TAB Q6 | | | TRAMADOL | 1517349160 | Rudy | | HCL 50 MG | HRS PRN | | | HCL | 0 | Yaquelin | | TABS | PAIN | | | | | MD | + + + + + + + + | NORCO | 1 every 8 | | | HYDROCODON | 4902390282 | Rudy | | 5-325 MG | hours as | | | E-ACETAMIN | 1 | Yaquelin | | TABS | needed | | | OPHEN | | MD | + + + + + + + + | CLINDAMYCI | 1 tab by | | | CLINDAMYCI | 3826069550 | Tommy | | N HCL 150 [...] tab po | | | HYDROCODON | 9286886825 | Karma | | 5-325 MG | QD | | | E-ACETAMIN | 1 | Berenice CONRAD | | TABS | | | | OPHEN | | | + + + + + + + + | COMPRESSIO | put on in | | | COMPRESSIO | | Melvina | | N HOSE | the | | | N HOSPage | | [place] | | MEN'S [...] Inhale 2 | | | ALBUTEROL | 8978442479 | Phan | | 108 (90 | puffs | | | SULFATE | 2 | Middlekauf | | Base) | every 4 | | | | | f SEWING MACHINE ASSEMBLER | | MCG/ACT | hours as | [...] tab q | | | OXYCODONE- | [id number] | Florecita | | 7.5-325 MG | 4 hrs for | | | ACETAMINOP | 0 | Suhr SEWING MACHINE ASSEMBLER-C | | TABS | pain, hold | [...] po bid | | | HYDROCODON | 4123996047 | Cyndi [place] | | E-ACETAMIN | [...] 4-6 per | | | HYDROCODON | 9993861918 | Karma | | 5-325 MG | day | | | E-ACETAMIN | 1 | Berenice CONRAD | | TABS | | | | OPHEN | | | + + + + + + + + | OXYCODONE | 3-4 per | | | OXYCODONE | 3174528614 | Karma | | HCL 10 MG | day | | | HCL | 8 | Berenice CONRAD | | TABS | | | | | | | + + + + + + + + | OXYCODONE | 1 tab q 4 | | | OXYCODONE | 5696031543 | Karma | | HCL 15 MG | hrs PRN | | | HCL | 1 | Berenice CONRAD | | TABS | pain | | | | | | + + + + + + + + | HYDROCODON | Take 1 tab | | | HYDROCODON | 1031743198 | Melvina | | E-ACETAMIN | po [...] 1 tab | | | TRAMADOL | 1666976859 | Karma | | HCL 50 MG [...] 1 tab | | | GUAIFENESI | 7096138787 | Karma | | N 400 MG [...] 2tabs po | | | VARENICLIN | 9145557122 | Rudy | | MG TABS | qd | | | E TARTRATE | 6 | Yaquelin | | | | | | | | MD | + + + + + + + + | OXYCODONE- | Take 1 tab | | | OXYCODONE- | 0948629102 | Phan | | ACETAMINOP | by mouth | | | ACETAMINOP | 6 | Middlekauf | | HEN 5-325 | three | | | HEN | | f SEWING MACHINE ASSEMBLER | | MG TABS | times per [...] 1 tab | | | PSEUDOEPHE | 0723696982 | Phan | | DRINE HCL | by mouth | | | DRINE HCL | 0 | Middlekauf | | 30 MG TABS | four times | | | | | f SEWING MACHINE ASSEMBLER | | | per day | | [...] Inhale 2 | | | ALBUTEROL | 1594857131 | Malachi K | | 108 (90 | puffs | [...] Take 1 | | | DOXYCYCLIN | 8247414522 | Malachi Levin | | E HYCLATE [...] 4-6 per | | | HYDROCODON | 4520018158 | Prabhakar | | 5-325 MG | day | | | E-ACETAMIN | 1 | VanAnrooy | | TABS | | | | OPHEN | | MD | + + + + + + + + | MOBIC 7.5 | 1 tablet | | | MELOXICAM | 8317900533 | Phan | | MG TABS | by mouth | | | | 5 | Middlekauf | | | daily. | | | | | f SEWING MACHINE ASSEMBLER | | | Must last | | | | | | | | 30 days. | | | | | | + + + + + + + + | CLINDAMYCI | 1 tab by | | | CLINDAMYCI | 2363480415 | Malachi Levin | | N HCL [...] | prn | | | MAGNESIUM | 0485171487 | Melvina | | OF | constipati | | | HYDROXIDE | 5 | Margarito CONRAD | | MAGNESIA | on | | | | | | | 1200 | | | | | | | | MG/15ML | | | | | | | | SUSP | | | | | | | + + + + + + + + | IBUPROFEN | 4 By mouth | | | IBUPROFEN | 6119579634 | Andriy | | 200 MG | 3 times a | | | | 8 | Padovich | | TABS | day | | | | | SEWING MACHINE ASSEMBLER | + + + + + + + + | UDS | 1.2.15 | | | UDS | | Prabhakar | | | consistent | | | | | Uzma | | | | | | | | MD | + + + + + + + + | CHANTIX 1 | 1 tab two | | | VARENICLIN | 2682098238 | Karma | | MG TABS | times per | | | E TARTRATE | 6 | Berenice [place] | | | day | | | | | | + + + + + + + + | HYDROCODON | Take 1 tab | | | HYDROCODON | 9110167088 | Karma | | E-ACETAMIN | po [...] 1 tab | | | WARFARIN | 3482139270 | Florecita | | MG TABS | daily | | | SODIUM | 0 | Mackenzie GUPTAP-C | + + + + + + + + | IBUPROFEN | three | | | IBUPROFEN | 4583003739 | Rudy | | 600 MG | [...] | | | | | | | SEWING MACHINE ASSEMBLER | + + + + + + + + | ELAVIL 25 | Take 1 | | | AMITRIPTYL | 0108326837 | Rudy | | MG TABS | tab po QHS | | | INE HCL | 0 | Yaquelin | | | | | | | | MD | + + + + + + + + | TRAMADOL | 1-2 TAB | | | TRAMADOL | 5734076047 | Rudy | | HCL 50 MG | BID PRN | | | HCL | 0 | Yaquelin | | TABS | PAIN | | | | | MD | + + + + + + + + | LISINOPRIL | 1 tab one | | | LISINOPRIL | 1360192989 | Rudy | | 20 MG | time per | | | | 4 | Yaquelin | | TABS | day | | | | | MD | + + + + + + + + | CHANTIX 1 | take 1tab | | | VARENICLIN | 6064639915 | Rudy | | MG TABS | po daily | | | E TARTRATE | 6 | Yaquelin | | | | | | | | MD | + + + + + + + + | TRAMADOL | 1 TAB BID | | | TRAMADOL | 7248756242 | Rudy | | HCL 50 MG | PRN PAIN | | | HCL | 0 | Yaquelin | | TABS | | | | | | MD | + + + + + + + + | NORCO | 1tab by | | | HYDROCODON | 4560063454 | Rudy | | 7.5-325 MG | [...] TAB Q6 | | | TRAMADOL | 0683360659 | Prabhakar | | HCL 50 MG | HRS PRN | | | HCL | 0 | VanAnrooy | | TABS | PAIN | | | | | MD | + + + + + + + + | NORCO | 1tab po | | | HYDROCODON | 6986235955 | Rudy | | 7.5-325 MG | [...] tab po | | | HYDROCODON | 0490703935 | Rudy | | 5-325 MG | QD | | | E-ACETAMIN | 1 | Yaquelin | | TABS | | | | OPHEN | | MD | + + + + + + + + | TRAMADOL | take 1 tab | | | TRAMADOL | 9129617229 | Rudy | | HCL 50 MG | nightly | | | HCL | 0 | Yaquelin | | TABS | | | | | | MD | + + + + + + + + | NORCO | 1 every 8 | | | HYDROCODON | 3191662654 | Prabhakar | | 5-325 MG | hours as | | | E-ACETAMIN | 1 | VanAgathaoy | | TABS | needed | | | OPHEN | | MD | + + + + + + + + | OXYCODONE | 1 tab q 4 | | | OXYCODONE | 2670343676 | Florecita | | HCL 15 MG | hrs PRN | | | HCL | 1 | Suhr SEWING MACHINE ASSEMBLER-C | | TABS | pain | | | | | | + + + + + + + + | [facility] LYSINE | take 1 tab | | | LYSINE | 7324613292 | Rudy | | 1000 MG | [...] tab q | | | OXYCODONE- | 6788283701 | Florecita | | 7.5-325 MG | 4 hrs for | | | ACETAMINOP | 0 | Suhr SEWING MACHINE ASSEMBLER-C | | TABS | pain, hold | | | HEN | | | | | if | | | | | | | | somnolent | | | | | | | | or asleep. | | | | | | + + + + + + + + | PERCOCET | 1-2 tab q | | | OXYCODONE- | 7371380861 | Florecita | | 7.5-325 MG | 4 hrs PRN | | | ACETAMINOP | 0 | Suhr SEWING MACHINE ASSEMBLER-C | | TABS | pain, | | | HEN | | | | | dispense | | | | | | | | #84 | | | | | | + + + + + + + + | TESSALON | Take three | | | BENZONATAT | 0654453305 | Loraine | | RACHEL 100 | [...] 1tab po | | | VARENICLIN | 1508401339 | Rudy | | MG TABS | bid | | | E TARTRATE | 6 | Yaquelin | | | | | | | | MD | + + + + + + + + | HYDROCODON | Take 1 tab | | | HYDROCODON | 2405829784 | Rudy | | E-ACETAMIN | po [...] po qd | | | LISINOPRIL | 3301483275 | Rudy | | 20 MG | | | | | 1 | Yaquelin | | TABS | | | | | | MD | + + + + + + + + | TRAMADOL | 1 TAB Q6 | | | TRAMADOL | 8444301320 | Prabhaakr | | HCL 50 MG | HRS PRN | | | HCL | 0 | VanAnrooy | | TABS | PAIN | | | | | MD | + + + + + + + + | CEPACOL | 1 lozenge | | | BENZOCAINE | 1966042294 | Phan | | SORE | every 2 | | | -MENTHOL | 0 | Middlekauf | | THROAT | hours as | | | | | f SEWING MACHINE ASSEMBLER | | 10-2.1 MG | needed for | | | | | | | LOZG | sore | | | | | | | | throat | | | | | | + + + + + + + + | GUAIFENESI | 1 tab | | | GUAIFENESI | 8941386339 | Phan | | N 400 MG | every 4 | | | N | 0 | Middlekauf | | TABS | hours as | | | | | f SEWING MACHINE ASSEMBLER | | | needed for | | | | | | | | | | | | | | | | cough/yaw | | | | | | | | estion | | | | | | + + + + + + + + | PSEUDOEPHE | Take 1 tab | | | PSEUDOEPHE | 3322852362 | Malachi Levin | | DRINE HCL [...] Take 3 | | | PREDNISONE | 0189407342 | Malachi Levin | | 20 MG [...] Take 1 | | | GABAPENTIN | 3695306267 | Malachi Levin | | 300 MG [...] 1 tab | | | OXYCODONE- | 9995112061 | Malachi Levin | | ACETAMINOP | [...] 1 tab | | | CYCLOBENZA | 1713907323 | Malachi Levin | | YESSY HCL [...] po bid | | | HYDROCODON | 2532612312 | Tommy | | E-ACETAMIN | prn [...] 1 tablet | | | MELOXICAM | 8937685208 | Jovany | | MG TABS | [...] | | | | | | | SEWING MACHINE ASSEMBLER | + + + + + [...] | | Critical | No Longer | Phna | | | | | | Active | Middlekauff | | | | | | | SEWING MACHINE ASSEMBLER | +---------+ + + + + + | CODEINE | Itch | | Critical | No Longer | Skye | | | | | | Active | Epifanio SEWING MACHINE ASSEMBLER | +---------+ + + + + + | SULFA | Break out in | | Critical | | Skye | | | hives | | | | Epifanio SEWING MACHINE ASSEMBLER | +---------+ + + + + + [...] + + +--------+ +---+---+ + | | [place] | 156 | ms | | | [place] | | | INTERVAL | | | [...] +---+ + + + | Office Visit: PANEL EDGE PAINTER 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- lft hip pain | + [...] + + | Office Visit: hip surgery f/u, mikala martinez | + + + + + +---+---+---+ [...] Report: CBC with Auto Diff, Erythro Sed RateClarisa | + + + +-----+---+------+------+---+ + | [...] + +-----+--------+-------+ +---+ + + + | Nurse Encounter: nurse [...] +-------+---+---+ + + + | Office Visit: Hip Pain | + + + +---------+---------+---+---+---+ + | | DIET | yes | | | | Dietary | | | EXTRUDER TENDER | | | | | management | [...] +--------+ +---+---+---+ + | | ESM_RR | [id number] | | | B | e-scripts | [...] | | | | | | | [id number]` | | | | | | | | [phone] | | | | | | | [...] | | | + +--------+ +---+---+---+ + Plan of Care + + + + | Type | Date | Detail | + + + + | Appointment | 11:00 AM | Mariah BEASLEY, [address] | | | [facility] [address], | | | | [place], [address], | | | | | + + + + | Referral | | Podiatry Consult | | | | GUILLERMO Haley, | | | | [address] [facility], | | | | [place], [address] | | | | | + + [...] | Pending order | | MR Meenakshi Banuelos-Lt | + + + + | Pending order | | XR Kvng 2V-Rt | + + + + | Pending order | | XR Foot 2V-Rt | + + + + Procedures + + + + + | Code | Procedure Name | Date | Entry Date | + + + + + | CPT-47997 | Urine Toxicology | | | | | Screen, Multiple | | | | | Drug Classes by | | | | | Direct Optical | | | | | Observation | | | + + + + + | CPT-66684 | XR Hip W/Pelvis | | | | | 2-3V-Lt | | | + + + + + | CPT-54182 | Theraputic | | | | | Injection (IM/SubQ) | | | + + + + + | CPT-J1885 | Toradol 15mg | | | + + + + + | CPT-10702 | Urine Toxicology | | | | | Screen, Multiple | | | | | Drug Classes by | | | | | Direct Optical | | | | | Observation | | | + + + + + | CPT-45624 | Theraputic | | | | | Injection (IM/SubQ) | | | + + + + + | CPT-J1885 | Toradol 15mg | | | + + + + + | CPT-11074 | Theraputic | | | | | Injection (IM/SubQ) | | | + + + + + | CPT-J1885 | Toradol 15mg | | | + + + + + | CPT-75093 | Theraputic | | | | | Injection (IM/SubQ) | | | + + + + + | CPT-J1885 | Toradol 15mg | | | + + + + + | CPT-42487 | XR Hip W/Pelvis | | | | | 2-3V-Lt | | | + + + + + | CBC AUTO 99955 | CBC w/ Auto Diff | | | + + + + + | CPT-45001 | XR Hip W/Pelvis | | | | | 2-3V-Lt | | | + + + + + | CBC AUTO 88128 | CBC w/ Auto Diff | | | + + + + + | M NOS MRSA 59079 | Nose Culture, MRSA | | | | | Only | | | + + + + + | CHEM 8 64750 | Basic Metabolic | | | | | Panel | | | + + + + + | CPT-60168 | Health Risk | | | | | Assessment | | | + + + + + | GLYCO HGB 88018 | Glyco Hemoglobin, | | | | | A1C | | | + + + + + | CPT-90582 | Health Risk | | | | | Assessment | | | + + + + + | CPT-86092 | Health Risk | | | | | Assessment | | | + + + + + | U NICOTINE 42480 | Cotinine | | | + + + + + | 51371 | MR Meenakshi Banuelos-Lt | | | + + + + + | CPT-77419 | XR Hip W/Pelvis | | | | | 2-3V-Lt | | | + + + + + | CPT- 60110 | Administration | | | | | (57693) | | | + + + + + | CPT-J1885 | Toradol Inj. 60mg | | | + + + + + | CPT-71925 | Urine Tox, multiple | | | | | drug classes | | | + + + + + | 66843 | XR Foot 2V-Rt | | | + + + + + | [id number] | [Recorded for CQM] | | | | | Pedal pulse taking | | | | | (procedure) | | | + + + + + | [id number] | [Recorded for CQM] | | | | | Documentation of | | | | | current medications | | | | | (procedure) | | | + + + + + | [id number] | [Recorded for CQM] | | | | | Health-related | | | | | behavior | | | + + + + + | [id number] | [facility] Generic Patient | | | | | Encounter Service | | | | | (from patch) | | | + + + + + | [id number] | [Recorded for CQM] | | | | | Pedal pulse taking | | | | | (procedure) | | | + + + + + | [id number] | [Recorded for CQM] | | | | | Documentation of | | | | | current medications | | | | | (procedure) | | | + + + + + | [id number] | [Recorded for CQM] | | | | | Drug or Medication | | | + + + + + | [id number] | [Recorded for CQM] | | | | | Details of drug | | | | | misuse behavior | | | + + + + + | [id number] | [Recorded for CQM] | | | | | Never smoker | | | + + + + + | [id number] | [Recorded for CQM] | | | | | Never smoked | | | | | tobacco (finding) | | | + + + + + | [id number] | [Recorded for CQM] | | | | | Tobacco use and | | | | | exposure | | | + + + + + | 116474560 | [Recorded for CQM] | | | | | Alcohol intake | | | + + + + + | 487343332 | [Recorded for CQM] | | | | | Allergy | | | + + + + + | [id number] | [Recorded for CQM] | | | | | Alcohol intake | | | + + + + + | 605981216 | [Recorded for CQM] | | | | | Tobacco use and | | | | | exposure | | | + + + + + | 964074734 | [Recorded for CQM] | | | | | Details of drug | | | | | misuse behavior | | | + + + + + | [id number] | [Recorded for CQM] | | | | | Drug or Medication | | | + + + + + | [id number] | [Recorded for CQM] | | | | | Current Light | | | | | tobacco smoker | | | + + + + + | [id number] | [Recorded for CQM] | | | | | Light tobacco | | | | | smoker (finding) | | | + + + + + | [id number] | [Recorded for CQM] | | | | | Documentation of | | | | | current medications | | | | | (procedure) | | | + + + + + | [id number] | [Recorded for CQM] | | | | | Pedal pulse taking | | | | | (procedure) | | | + + + + + | 35404 | XR Foot 2V-Rt | | | [...]
--- OUTSIDE RECORDS SUMMARY | ~2019-09-25 | XMS | Continuity of Care Document ---
Demographics + + + | Address | [address] | | | [place] [address] | + + + | Home Phone | | + + + | Preferred Language | Unknown | + + + | Marital Status | Unknown | + + + | Lutheran Affiliation | Unknown | + + + | Race | Unknown | + + + | Ethnic Group | Unknown | + + + Author + + + | Author | [facility] | + + + | Organization | [facility] | + + + | Address | [address] | | | [place] [address] | + + + | Phone | | + + + Support + + + + + | Name | Relationship | Address | Phone | + + + + + | DOCTOR, NO PCP | Caregiver | [address] | | | | | [place] | | | | | [address] | | + + + + + | Viss, Suzanne M LDR RN | Caregiver | [address] | | | | | [place] | | | | | [address] | | + + + + + | JAYME KIRK | Next Of Kin | [place] [address] | | + + + + + Care Team Providers + + + + | Care Practice Physician Name | Role | Phone | + + + + | IOANA CAMPO | Unavailable | | + + + + Insurance Providers + + + + + | Payer Name | Policy Number | Subscriber Name | Relationship | + + + + + | [facility] | [id number] | BOBBY MURILLOD | SELF | | [place] | | | | + + + + + Chief Complaint and Reason for Visit + + + | Reason for Visit | BLACK STOOL ABD PN | + + + Problems Active Medical [...] Needed as needed | | | | (Equinunk 5-325 | for PAIN | | | | Tablet) 1 Each | | | | | Tablet Tablet, 1-2 | | | | | Tab Oral | | | | + + + + + | Hydrocodone/Acetami | | Unknown | Discontinued | | nophen (Equinunk | | | | | 5MG-325MG) 5 [...] Mg | Pain | | | | (Equinunk 10-325 Mg) | | | | | 10 Mg/325 Mg Tab | | | | | Tab, 0.5-1 Tab Oral | | | | + + + + + | Hydrocodone/Apap | Every 6 Hours | 08/15/16 | Discontinued | | 5-325 Mg (Equinunk | | | | | 5-325 Mg) 1 Each | | | | | Tablet Tablet, 1 | | | | | Each Oral | | | | + + + + + | Hydrocortisone/Pram | 5 Times Each Day as | 11/01/15 | Discontinued | | oxine | needed [...] + + + | Discharge Date | 01/12/17 | + + + | Disposition | HOME | + + + | Condition at Discharge | Good | + + + | Instructions/Education Provided | Abdominal Pain, Adult, [id number] | + + + | Prescriptions | See Medications Section | + + + | Referrals | [facility] - | + + + | Additional Instructions/Education | Use the Zofran if needed for nausea.Clear | | | liquids only until vomiting stops. Slowly | | | advance diet as tolerated. | + + + Functional Status No functional status results. Allergies, Adverse Reactions, Alerts + +---------+ + +--------+ + | Allergen | Type | Severity | Reaction | Status | Last Updated | + +---------+ + +--------+ + | Sulfa | Allergy | Unknown | ANAPHYLAXIS, | Active | 01/12/17 | | (Sulfonamide | | | HIVES | | | | | | | | | | | Antibiotics) | | | | | | + +---------+ + +--------+ + | codeine | Allergy | Unknown | | Active | 01/12/17 | + +---------+ + +--------+ + Immunizations No Known History of Immunizations. Vital Signs + + + + | Vital Reading | Collection Date/Time | Result | + + + + | Blood Pressure | 01/12/17 4:15pm | 132/79 | + + + + | Blood Pressure Source | 06/17/16 4:24am | Right Arm | + + + + | Temperature | 01/12/17 12:16pm | 98.4 F | + + + + | Temperature Source | 01/12/17 12:16pm | Temporal | + + + + | Respiratory Rate | 01/12/17 4:15pm | 16 | + + + + | Pulse Rate | 01/12/17 4:15pm | 86 | + + + + | Bedside Pulse Oximetry | 01/12/17 4:15pm | 97 | + + + + | Height | 01/12/17 12:16pm | 6 ft 1 in | + + + + | Height | 01/12/17 12:16pm | 185.42 cm | + + + + | Weight | 01/12/17 12:16pm | 260 lb | + + + + | Weight | 01/12/17 12:16pm | 117.93 kg | + + + + | Body Mass Index | 01/12/17 12:16pm | 34.3 kg/m2 | + + + [...] + + + + | White | 6.34 | K/mm3 | | 4.00-11. | 01/12/17 | 01/12/17 | | | Blood | | | | 30 | 12:20pm | 12:38pm | | | Count | | | | | | | | + +--------+ +-------+ + + + + | Red | 5.22 | M/mm3 | | 4.30-5.9 | 01/12/17 | 01/12/17 | | | Blood | | | | 0 | 12:20pm | 12:38pm | | | Count | | | | | | | | + +--------+ +-------+ + + + + | Hemoglob | 15.3 | g/dL | | 13.5-17. | 01/12/17 | 01/12/17 | | | in | | | | 5 | 12:20pm | 12:38pm | | + +--------+ +-------+ + + + + | Hematocr | 45.7 | % | | 37.0-53. | 01/12/17 | 01/12/17 | | | it | | | | 0 | 12:20pm | 12:38pm | | + +--------+ +-------+ + + + + | Mean | 88 | fL | | 80-100 | 01/12/17 | 01/12/17 | | | Corpuscu | | | | | 12:20pm | 12:38pm | | | lar | | | | | | | | | Volume | | | | | | | | + +--------+ +-------+ + + + + | Mean | 29.3 | pg | | 26.0-34. | 01/12/17 | 01/12/17 | | | Corpuscu | | | | 0 | 12:20pm | 12:38pm | | | lar | | | | | | | | | Hemoglob | | | | | | | | | in | | | | | | | | + +--------+ +-------+ + + + + | Mean | 33.5 | g/dL | | 31.5-36. | 01/12/17 | 01/12/17 | | | Corpuscu | | | | 5 | 12:20pm | 12:38pm | | | lar | | | | | | | | | Hemoglob | | | | | | | | | in | | | | | | | | | Concent | | | | | | | | + +--------+ +-------+ + + + + | RDW | 45.7 | fL | | 35.1-46. | 01/12/17 | 01/12/17 | | | Standard | | | | 3 | 12:20pm | 12:38pm | | | | | | | | | | | | Deviatio | | | | | | | | | n | | | | | | | | + +--------+ +-------+ + + + + | RDW | 14.3 | % | H | 11.7-14. | 01/12/17 | 01/12/17 | | | Coeffici | | | | 2 | 12:20pm | 12:38pm | | | ent of | | | | | | | | | Variatio | | | | | | | | | n | | | | | | | | + +--------+ +-------+ + + + + | Platelet | 273 | K/mm3 | | 150-400 | 01/12/17 | 01/12/17 | | | Count | | | | | 12:20pm | 12:38pm | | + +--------+ +-------+ + + + + | Mean | 10.1 | fL | | 9.1-12.4 | 01/12/17 | 01/12/17 | | | Platelet | | | | | 12:20pm | 12:38pm | | | Volume | | | | | | | | + +--------+ +-------+ + + + + | Differen | Auto | | | | 01/12/17 | 01/12/17 | | | tial | | | | | 12:20pm | 12:38pm | | | Method | | | | | | | | + +--------+ +-------+ + + + + | Neutroph | 61 | % | | 41-73 | 01/12/17 | 01/12/17 | | | ils (%) | | | | | 12:20pm | 12:38pm | | | (Auto) | | | | | | | | + +--------+ +-------+ + + + + | Lymphocy | 27 | % | | 21-46 | 01/12/17 | 01/12/17 | | | wicho (%) | | | | | 12:20pm | 12:38pm | | | (Auto) | | | | | | | | + +--------+ +-------+ + + + + | Monocyte | 10 | % | | 4-13 | 01/12/17 | 01/12/17 | | | s (%) | | | | | 12:20pm | 12:38pm | | | (Auto) | | | | | | | | + +--------+ +-------+ + + + + | Eosinoph | 1 | % | | 0-6 | 01/12/17 | 01/12/17 | | | ils (%) | | | | | 12:20pm | 12:38pm | | | (Auto) | | | | | | | | + +--------+ +-------+ + + + + | Basophil | 1 | % | | 0-2 | 01/12/17 | 01/12/17 | | | s (%) | | | | | 12:20pm | 12:38pm | | | (Auto) | | | | | | | | + +--------+ +-------+ + + + + | Immature | 0 | % | | 0-1 | 01/12/17 | 01/12/17 | | | | | | | | 12:20pm | 12:38pm | | | Granuloc | | | | | | | | | yte % | | | | | | | | | (Auto) | | | | | | | | + +--------+ +-------+ + + + + | Nucleate | 0.0 | /100 WBC | | 0.0-0.2 | 01/12/17 | 01/12/17 | | | d Red | | | | | 12:20pm | 12:38pm | | | Blood | | | | | | | | | Cells % | | | | | | | | + +--------+ +-------+ + + + + | Absolute | 3.83 | K/mm3 | | 1.96-9.1 | 01/12/17 | 01/12/17 | | | | | | | 5 | 12:20pm | 12:38pm | | | Neutroph | | | | | | | | | ils | | | | | | | | | (auto) | | | | | | | | + +--------+ +-------+ + + + + | Absolute | 1.73 | K/mm3 | | 0.84-5.2 | 01/12/17 | 01/12/17 | | | | | | | 0 | 12:20pm | 12:38pm | | | Lymphocy | | | | | | | | | wicho | | | | | | | | | (auto) | | | | | | | | + +--------+ +-------+ + + + + | Absolute | 0.66 | K/mm3 | | 0.16-1.4 | 01/12/17 | 01/12/17 | | | | | | | 7 | 12:20pm | 12:38pm | | | Monocyte | | | | | | | | | s (auto) | | | | | | | | + +--------+ +-------+ + + + + | Absolute | 0.06 | K/mm3 | | 0.00-0.6 | 01/12/17 | 01/12/17 | | | | | | | 8 | 12:20pm | 12:38pm | | | Eosinoph | | | | | | | | | ils | | | | | | | | | (auto) | | | | | | | | + +--------+ +-------+ + + + + | Absolute | 0.04 | K/mm3 | | 0.00-0.2 | 01/12/17 | 01/12/17 | | | | | | | 3 | 12:20pm | 12:38pm | | | Basophil | | | | | | | | | s (auto) | | | | | | | | + +--------+ +-------+ + + + + | Absolute | 0.02 | K/mm3 | | 0.00-0.1 | 01/12/17 | 01/12/17 | | | | | | | 0 | 12:20pm | 12:38pm | | | Immature | | | [...] 0.00 | K/mm3 | | 0.00-0.0 | 01/12/17 | 01/12/17 | | | d RBC | | | | 2 | 12:20pm | 12:38pm | | | Absolute | | | | | | | | | Count | | | | | | | | | (auto) | | | | | | | | + +--------+ +-------+ + + + + | Sodium | 137 | mmol/L | | 136-145 | 01/12/17 | 01/12/17 | | | Level | | | | | 12:20pm | 12:53pm | | + +--------+ +-------+ + + + + | Potassiu | 3.5 | mmol/L | | 3.5-5.5 | 01/12/17 | 01/12/17 | | | m Level | | | | | 12:20pm | 12:53pm | | + +--------+ +-------+ + + + + | Chloride | 102 | mmol/L | | 98-108 | 01/12/17 | 01/12/17 | | | Level | | | | | 12:20pm | 12:53pm | | + +--------+ +-------+ + + + + | Carbon | 26 | mmol/L | | 21-32 | 01/12/17 | 01/12/17 | | | Dioxide | | | | | 12:20pm | 12:53pm | | | Level | | | | | | | | + +--------+ +-------+ + + + + | Anion | 9 | mmol/L | | 6-16 | 01/12/17 | 01/12/17 | | | Gap | | | | | 12:20pm | 12:53pm | | + +--------+ +-------+ + + + + | Glucose | 112 | mg/dL | H | 70-99 | 01/12/17 | 01/12/17 | | | Level | | | | | 12:20pm | 12:53pm | | + +--------+ +-------+ + + + + | Blood | 5 | mg/dL | L | 8-24 | 01/12/17 | 01/12/17 | | | Urea | | | | | 12:20pm | 12:53pm | | | Nitrogen | | | | | | | | + +--------+ +-------+ + + + + | Creatini | 0.69 | mg/dL | | 0.60-1.2 | 01/12/17 | 01/12/17 | | | ne | | | | 0 | 12:20pm | 12:53pm | | + +--------+ +-------+ + + + + | BUN/Crea | 7.3 | % | L | 12.0-20. | 01/12/17 | 01/12/17 | | | tinine | | | | 0 | 12:20pm | 12:53pm | | | Ratio | | | | | | | | + +--------+ +-------+ + + + + | Glomerul | >60 | | | 60- | 01/12/17 | 01/12/17 | Non-Afri | | ar | | | | | 12:20pm | 12:53pm | can | | Filtrati | | [...] 8.9 | mg/dL | | 8.5-10.1 | 01/12/17 | 01/12/17 | | | Level | | | | | 12:20pm | 12:53pm | | + +--------+ +-------+ + + + + | Total | 7.9 | g/dL | | 6.4-8.2 | 01/12/17 | 01/12/17 | | | Protein | | | | | 12:20pm | 12:53pm | | + +--------+ +-------+ + + + + | Albumin | 3.8 | g/dL | | 3.4-5.0 | 01/12/17 | 01/12/17 | | | | | | | | 12:20pm | 12:53pm | | + +--------+ +-------+ + + + + | Globulin | 4.1 | g/dL | H | 2.2-4.0 | 01/12/17 | 01/12/17 | | | | | | | | 12:20pm | 12:53pm | | + +--------+ +-------+ + + + + | Albumin/ | 0.9 | | | 0.8-1.8 | 01/12/17 | 01/12/17 | | | Globulin | | | | | 12:20pm | 12:53pm | | | Ratio | | | | | | | | + +--------+ +-------+ + + + + | Total | 0.3 | mg/dL | | 0.1-1.0 | 01/12/17 | 01/12/17 | | | Bilirubi | | | | | 12:20pm | 12:53pm | | | n | | | | | | | | + +--------+ +-------+ + + + + | Alkaline | 59 | U/L | | 50-136 | 01/12/17 | 01/12/17 | | | | | | | | 12:20pm | 12:53pm | | | Phosphat | | | | | | | | | ase | | | | | | | | + +--------+ +-------+ + + + + | Aspartat | 103 | U/L | H | 12-37 | 01/12/17 | 01/12/17 | | | e Amino | | | | | 12:20pm | 12:53pm | | | Transf | | | | | | | | | (AST/SGO | | | | | | | | | T) | | | | | | | | + +--------+ +-------+ + + + + | Alanine | 130 | U/L | H | 12-78 | 01/12/17 | 01/12/17 | | | Aminotra | | | | | 12:20pm | 12:53pm | | | nsferase | | | [...] + + + + | Departed | [facility] | 01/12/17 | 01/12/17 4:15pm | Suzanne Heller | | Emergency | [facility] | 12:07pm | | LDR RN | + + + + + + | Departed | [facility] | 01/08/17 8:03am | 01/08/17 | Harsha Crabtree MD | | Emergency | [facility] | | 10:15am | | + + + + + + + + + | Encounter Diagnosis | Onset Date | + + + | Abdominal pain | | + + +"
--- OUTSIDE RECORDS SUMMARY | ~2019-09-25 | XMS | Continuity of Care Document ---
Demographics + + + | Address | [address] | | | [place] [address] | + + + | Home Phone | | + + + | Preferred Language | Unknown | + + + | Marital Status | Never | + + + | Hoahaoism Affiliation | Scientology (non-Buddhism, non-specific) | + + + | Race | White | + + + | Ethnic Group | Not or | + + + Author + + + | Author | [facility] | + + + | Organization | [facility] | + + + | Address | [address] | | | [place] [address] | + + + | Phone | tel | + + + Support + + + + + | Name | Relationship | Address | Phone | + + + + + | NEHEMIAS Bergeron | PRS | [address] | | | R | | [place] [address] | | + + + + + | DO Madan Adamson | PRS | [address] | | | | | [place] | | | | | [address] | | + + + + + | DEBBIE KUMAR | PRS | [facility] [address] | | + + + + + Care Team Providers + +------+ + | Care Internet Sales Representative Name | Role | Phone | + +------+ + | NEHEMIAS Bergeron | PCP | | + +------+ + Allergies, Adverse Reactions, Alerts + +---------+ + +---------+ +--------+ | Allergen | Type | Severity | Reaction | Last | Verified | Status | | | | | | Updated | | | + +---------+ + +---------+ +--------+ | Sulfa | Allergy | Unknown | ANAPHYLAXI | | Yes | Active | | (Sulfonami | | | S, HIVES | | | | | de | | | | | | | | Antibiotic | | | | | | | | s) | | | | | | | + +---------+ + +---------+ +--------+ Medications +-------+-------+------+-------+-------+-------+-----+------+-------+------+-------+ | Medic | Statu | Dose | Units | Route | Sig | Qty | Days | Start | End | Instr | | ation | s | | | | | | | Date | Date | uctio | | | | | | | | | | | | ns | +-------+-------+------+-------+-------+-------+-----+------+-------+------+-------+ | No | Activ | | | | | | | | | | | Histo | e | | | | | | | | | | | rical | | | | | | | | | | | | | | | | | | | | | | | | Medic | | | | | | | | | | | | ation | | | | | | | | | | | | s . | | | | | | | | | | | +-------+-------+------+-------+-------+-------+-----+------+-------+------+-------+ | Omepr | Activ | 20 | mg | Oral | Daily | 30 | | Decem | | | | azole | e | | | | for | | | antelmo | | | | | | | | | GASTR | | | 6th, | | | | (PriL | | | | | ITIS | | | 2019 | | | | OSEC | | | | | | | | 6:38a | | | | 20 mg | | | | | | | | m | | | | | | | | | | | | | | | | CapCR | | | | | | | | | | | | ) 20 | | | | | | | | | | | | MG | | | | | | | | | | | | CAPCR | | | | | | | | | | | +-------+-------+------+-------+-------+-------+-----+------+-------+------+-------+ Problems Active Problems + + +--------+ | Medical Problem | Onset Date | Status | + + +--------+ | Bronchitis | | Active | + + +--------+ | Tobacco use disorder | | Active | + + +--------+ | Cough | | Active | + + +--------+ | SOB (shortness of breath) | | Active | + + +--------+ | Rectal fissure | | Active | + + +--------+ | Fall | | Active | + + +--------+ | Contusion, hip | | Active | + + +--------+ | Pancreatitis | | Active | + + +--------+ | Hip pain | | Active | + + +--------+ | 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 | | | + + +--------+ | Arthritis | | Active | + + +--------+ | Knee pain | | Active | + + +--------+ | Viral gastroenteritis | | Active | + + +--------+ | Abdominal pain | | Active | + + +--------+ | Epistaxis | | Active | + + +--------+ | Right nasal polyps | | Active | + + +--------+ | Nausea & vomiting | | Active | + + +--------+ | Diarrhea | | Active | + + +--------+ | Dental infection | | Active | + + +--------+ | Acute chest pain | | Active | + + +--------+ | Gastroenteritis | | Active | + + +--------+ | Hypokalemia | | Active | + + +--------+ | Colitis | | Active | + + +--------+ | Chest pain | | Active | + + +--------+ | Biliary colic | | Active | + + +--------+ Procedures No procedure information available. Relevant Diagnostic Tests and/or Laboratory Data Laboratory Results + + +--------+ + + + + | Test | Date/Time | Result | Interpreta | Reference | Result | Performing | | | | | tion | Range | Comment | Site | + + +--------+ + + + + | White | March | 5.60 | | 4.00-11.30 | | [facility] | | Blood | 2018 | | | | | MEDICAL | | Count | 2:19am | | | | | [place], | | | | | | | | [address] | | | | | | | | [address] | | | | | | | | [place] | | | | | | | | [place] | | | | | | | | [address] | + + +--------+ + + + + | Red Blood | March | 4.67 | | 4.30-5.90 | | [facility] | | Count | 2018 | | | | | MEDICAL | | | 2:19am | | | | | CENTER, | | | | | | | | [address] | | | | | | | | [address] | | | | | | | | [place] | | | | | | | | [place] | | | | | | | | [address] | + + +--------+ + + + + | Hemoglobin | March | 14.3 | | 13.5-17.5 | | [facility] | | | 2018 | | | | | [facility] | | | 2:19am | | | | | CENTER, | | | | | | | | [address] | | | | | | | | [address] | | | | | | | | [place] | | | | | | | | [place] | | | | | | | | [address] | + + +--------+ + + + + | Hematocrit | March | 43.4 | | 37.0-53.0 | | [facility] | | | 2018 | | | | | [facility] | | | 2:19am | | | | | CENTER, | | | | | | | | [address] | | | | | | | | [address] | | | | | | | | [place] | | | | | | | | [place] | | | | | | | | [address] | + + +--------+ + + + + | Mean | March | 93 | | 80-100 | | [facility] | | Corpuscula | 2018 | | | | | MEDICAL | | r Volume | 2:19am | | | | | CENTER, | | | | | | | | [address] | | | | | | | | [address] | | | | | | | | [place] | | | | | | | | [place] | | | | | | | | [address] | + + +--------+ + + + + | Mean | March | 30.6 | | 26.0-34.0 | | [facility] | | Corpuscula | 2018 | | | | | MEDICAL | | r | 2:19am | | | | | CENTER, | | Hemoglobin | | | | | | [address] | | | | | | | | [address] | | | | | | | | [place] | | | | | | | | [place] | | | | | | | | [address] | + + +--------+ + + + + | Mean | March | 32.9 | | 31.5-36.5 | | [facility] | | Corpuscula | 2018 | | | | | MEDICAL | | r | 2:19am | | | | | CENTER, | | Hemoglobin | | | | | | [address] | | [address] | | | | | | [address] | | | | | | | | [place] | | | | | | | | [place] | | | | | | | | [address] | + + +--------+ + + + + | RDW | March | 44.7 | | 35.1-46.3 | | [facility] | | Standard | 2018 | | | | | MEDICAL | | Deviation | 2:19am | | | | | CENTER, | | | | | | | | [address] | | | | | | | | [address] | | | | | | | | [place] | | | | | | | | [place] | | | | | | | | [address] | + + +--------+ + + + + | RDW | March | 13.2 | | 11.7-14.2 | | [facility] | | Coefficien | 2018 | | | | | MEDICAL | | t of | 2:19am | | | | | CENTER, | | Variation | | | | | | [address] | | | | | | | | [address] | | | | | | | | [place] | | | | | | | | [place] | | | | | | | | [address] | + + +--------+ + + + + | Platelet | Devin | 266 | | 150-400 | | [facility] | | Count | 2018 | | | | | MEDICAL | | | 2:19am | | | | | CENTER, | | | | | | | | [address] | | | | | | | | [address] | | | | | | | | [place] | | | | | | | | [place] | | | | | | | | [address] | + + +--------+ + + + + | Mean | March | 9.5 | | 9.1-12.4 | | [facility] | | Platelet | 2018 | | | | | MEDICAL | | Volume | 2:19am | | | | | CENTER, | | | | | | | | [address] | | | | | | | | [address] | | | | | | | | [place] | | | | | | | | [place] | | | | | | | | [address] | + + +--------+ + + + + | Differenti | March | Auto | | | | [facility] | | al Method | 2018 | | | | | MEDICAL | | | 2:19am | | | | | CENTER, | | | | | | | | [address] | | | | | | | | [address] | | | | | | | | [place] | | | | | | | | [place] | | | | | | | | [address] | + + +--------+ + + + + | Neutrophil | March | 50 | | 41-73 | | [facility] | | s (%) | 2018 | | | | | MED[facility] | | (Auto) | 2:19am | | | | | CENTER, | | | | | | | | [address] | | | | | | | | [address] | | | | | | | | [place] | | | | | | | | [place] | | | | | | | | [address] | + + +--------+ + + + + | Lymphocyte | March | 35 | | 21-46 | | [facility] | | s (%) | 2018 | | | | | MED[facility] | | (Auto) | 2:19am | | | | | CENTER, | | | | | | | | [address] | | | | | | | | [address] | | | | | | | | [place] | | | | | | | | [place] | | | | | | | | [address] | + + +--------+ + + + + | Monocytes | March | 11 | | 4-13 | | [facility] | | (%) (Auto) | 2018 | | | | | MEDICAL | | | 2:19am | | | | | CENTER, | | | | | | | | [address] | | | | | | | | [address] | | | | | | | | [place] | | | | | | | | [place] | | | | | | | | [address] | + + +--------+ + + + + | Eosinophil | March | 3 | | 0-6 | | [facility] | | s (%) | 2018 | | | | | MED[facility] | | (Auto) | 2:19am | | | | | CENTER, | | | | | | | | [address] | | | | | | | | [address] | | | | | | | | [place] | | | | | | | | [place] | | | | | | | | [address] | + + +--------+ + + + + | Basophils | March | 1 | | 0-2 | | [facility] | | (%) (Auto) | 2018 | | | | | MEDICAL | | | 2:19am | | | | | CENTER, | | | | | | | | [address] | | | | | | | | [address] | | | | | | | | [place] | | | | | | | | [place] | | | | | | | | [address] | + + +--------+ + + + + | Immature | March | 1 | | 0-1 | | [facility] | | Granulocyt | 2018 | | | | | MEDICAL | | e % (Auto) | 2:19am | | | | | CENTER, | | | | | | | | [address] | | | | | | | | [address] | | | | | | | | [place] | | | | | | | | [place] | | | | | | | | [address] | + + +--------+ + + + + | Nucleated | Devin | 0.0 | | 0.0-0.2 | | [facility] | | Red Blood | 2018 | | | | | MEDICAL | | Cells % | 2:19am | | | | | CENTER, | | | | | | | | [address] | | | | | | | | [address] | | | | | | | | [place] | | | | | | | | [place] | | | | | | | | [address] | + + +--------+ + + + + | Absolute | March | 2.78 | | 1.96-9.15 | | [facility] | | Neutrophil | 2018 | | | | | MEDICAL | | s (auto) | 2:19am | | | | | CENTER, | | | | | | | | [address] | | | | | | | | [address] | | | | | | | | [place] | | | | | | | | [place] | | | | | | | | [address] | + + +--------+ + + + + | Absolute | March | 1.95 | | 0.84-5.20 | | [facility] | | Lymphocyte | 2018 | | | | | MEDICAL | | s (auto) | 2:19am | | | | | CENTER, | | | | | | | | [address] | | | | | | | | [address] | | | | | | | | [place] | | | | | | | | [place] | | | | | | | | [address] | + + +--------+ + + + + | Absolute | March | 0.61 | | 0.16-1.47 | | [facility] | | Monocytes | 2018 | | | | | MEDICAL | | (auto) | 2:19am | | | | | CENTER, | | | | | | | | [address] | | | | | | | | [address] | | | | | | | | [place] | | | | | | | | [place] | | | | | | | | [address] | + + +--------+ + + + + | Absolute | March | 0.19 | | 0.00-0.68 | | [facility] | | Eosinophil | 2018 | | | | | MEDICAL | | s (auto) | 2:19am | | | | | CENTER, | | | | | | | | [address] | | | | | | | | [address] | | | | | | | | [place] | | | | | | | | [place] | | | | | | | | [address] | + + +--------+ + + + + | Absolute | March | 0.04 | | 0.00-0.23 | | [facility] | | Basophils 2018 | | | | | MEDICAL | | (auto) | 2:19am | | | | | CENTER, | | | | | | | | [address] | | | | | | | | [address] | | | | | | | | [place] | | | | | | | | [place] | | | | | | | | [address] | + + +--------+ + + + + | Absolute | March | 0.03 | | 0.00-0.10 | | [facility] | | Immature 2018 | | | | | MEDICAL | | Granulocyt | 2:19am | | | | | CENTER, | | e (auto | | | | | | [address] | | | | | | | | [address] | | | | | | | | [place] | | | | | | | | [place] | | | | | | | | [address] | + + +--------+ + + + + | Nucleated | Devin | 0.00 | | 0.00-0.02 | | [facility] | | RBC | 2018 | | | | | MEDICAL | | Absolute | 2:19am | | | | | CENTER, | | Count | | | | | | [address] | | (auto) | | | | | | [address] | | | | | | | | [place] | | | | | | | | [place] | | | | | | | | [address] | + + +--------+ + + + + | Sodium | March | 144 | | 136-145 | | [facility] | | Level | 2018 | | | | | MEDICAL | | | 2:19am | | | | | CENTER, | | | | | | | | [address] | | | | | | | | [address] | | | | | | | | [place] | | | | | | | | [place] | | | | | | | | [address] | + + +--------+ + + + + | Potassium | March | 3.6 | | 3.5-5.5 | | [facility] | | Level | 2018 | | | | | MEDICAL | | | 2:19am | | | | | CENTER, | | | | | | | | [address] | | | | | | | | [address] | | | | | | | | [place] | | | | | | | | [place] | | | | | | | | [address] | + + +--------+ + + + + | Chloride | March | 108 | | 98-108 | | [facility] | | Level | 2018 | | | | | MEDICAL | | | 2:19am | | | | | CENTER, | | | | | | | | [address] | | | | | | | | [address] | | | | | | | | [place] | | | | | | | | [place] | | | | | | | | [address] | + + +--------+ + + + + | Carbon | March | 26 | | 21-32 | | [facility] | | Dioxide | 2018 | | | | | MEDICAL | | Level | 2:19am | | | | | CENTER, | | | | | | | | [address] | | | | | | | | [address] | | | | | | | | [place] | | | | | | | | [place] | | | | | | | | [address] | + + +--------+ + + + + | Anion Gap | March | 10 | | 6-16 | | [facility] | | | 2018 | | | | | MED[facility] | | | 2:19am | | | | | CENTER, | | | | | | | | [address] | | | | | | | | [address] | | | | | | | | [place] | | | | | | | | [place] | | | | | | | | [address] | + + +--------+ + + + + | Glucose | March | 100 | | 70-99 | | [facility] | | Level | 2018 | | | | | MEDICAL | | | 2:19am | | | | | CENTER, | | | | | | | | [address] | | | | | | | | [address] | | | | | | | | [place] | | | | | | | | [place] | | | | | | | | [address] | + + +--------+ + + + + | Blood Urea | March | 12 | | 8-24 | | [facility] | | Nitrogen | 2018 | | | | | MEDICAL | | | 2:19am | | | | | CENTER, | | | | | | | | [address] | | | | | | | | [address] | | | | | | | | [place] | | | | | | | | [place] | | | | | | | | [address] | + + +--------+ + + + + | Creatinine | March | 0.62 | | 0.60-1.20 | | [facility] | | | 2018 | | | | | MEDICAL | | | 2:19am | | | | | CENTER, | | | | | | | | [address] | | | | | | | | [address] | | | | | | | | [place] | | | | | | | | [place] | | | | | | | | [address] | + + +--------+ + + + + | BUN/Creati | March | 19.3 | | 12.0-20.0 | | [facility] | | nine Ratio | 2018 | | | | | MEDICAL | | | 2:19am | | | | | CENTER, | | | | | | | | [address] | | | | | | | | [address] | | | | | | | | [place] | | | | | | | | [place] | | | | | | | | [address] | + + +--------+ + + + + | Glomerular | Devin | >60 | | 60- | Non-Lena | [facility] | | | 2018 | | | | n [place] | MEDICAL | | Filtration | 2:19am | | | | GFR | CENTER, | | Rate Calc | | | | | CalcFor | [address] | | | | | | | | [address] | | | | | | | [place], | [place] | | | | | | | multiply | [place] | | | | | | | the | [address] | | | | | | | calculated | | | | | | | | GFR by | | | | | | | | 1.21Refere | | | | | | | | nce Range: | | | | | | | | Above 60 | | | | | | | | mL/min/1.7 | | | | | | | | 3m^2 | | + + +--------+ + + + + | Calcium | March | 8.0 | | 8.5-10.1 | | [facility] | | Level | 2018 | | | | | MEDICAL | | | 2:19am | | | | | CENTER, | | | | | | | | [address] | | | | | | | | [address] | | | | | | | | [place] | | | | | | | | [place] | | | | | | | | [address] | + + +--------+ + + + + | Total | March | 6.0 | | 6.4-8.2 | | [facility] | | Protein | 2018 | | | | | MEDICAL | | | 2:19am | | | | | CENTER, | | | | | | | | [address] | | | | | | | | [address] | | | | | | | | [place] | | | | | | | | [place] | | | | | | | | [address] | + + +--------+ + + + + | Albumin | March | 3.0 | | 3.4-5.0 | | [facility] | | | 2018 | | | | | [facility] | | | 2:19am | | | | | CENTER, | | | | | | | | [address] | | | | | | | | [address] | | | | | | | | [place] | | | | | | | | [place] | | | | | | | | [address] | + + +--------+ + + + + | Globulin | March | 3.0 | | 2.2-4.0 | | [facility] | | | 2018 | | | | | [facility]ICAL | | | 2:19am | | | | | CENTER, | | | | | | | | [address] | | | | | | | | [address] | | | | | | | | [place] | | | | | | | | [place] | | | | | | | | [address] | + + +--------+ + + + + | Albumin/Gl | Devin | 1.0 | | 0.8-1.8 | | [facility] | | obulin | 2018 | | | | | MEDICAL | | Ratio | 2:19am | | | | | CENTER, | | | | | | | | [address] | | | | | | | | [address] | | | | | | | | [place] | | | | | | | | [place] | | | | | | | | [address] | + + +--------+ + + + + | Total | Devin | 0.2 | | 0.1-1.0 | | [facility] | | Bilirubin | 2018 | | | | | MEDICAL | | | 2:19am | | | | | CENTER, | | | | | | | | [address] | | | | | | | | [address] | | | | | | | | [place] | | | | | | | | [place] | | | | | | | | [address] | + + +--------+ + + + + | Alkaline | Devin | 42 | | 50-136 | | [facility] | | Phosphatas | 2018 | | | | | MEDICAL | | e | 2:19am | | | | | CENTER, | | | | | | | | [address] | | | | | | | | [address] | | | | | | | | [place] | | | | | | | | [place] | | | | | | | | [address] | + + +--------+ + + + + | Aspartate | March | 24 | | 12-37 | | [facility] | | Amino | 2018 | | | | | MEDICAL | | Transf | 2:19am | | | | | CENTER, | | (AST/SGOT) | | | | | | [address] | | | | | | | | [address] | | | | | | | | [place] | | | | | | | | [place] | | | | | | | | [address] | + + +--------+ + + + + | Alanine | March | | | 12-78 | | [facility] | | Aminotrans | 2018 | | | | | MEDICAL | | ferase | 2:19am | | | | | CENTER, | | (ALT/SGPT) | | | | | | [address] | | | | | | | | [address] | | | | | | | | [place] | | | | | | | | [place] | | | | | | | | [address] | + + +--------+ + + + + | Troponin | March | <0.015 | | 0.000-0.04 | | [facility] | | | 2018 | | | 0 | | MEDICAL | | | 6:00am | | | | | CENTER, | | | | | | | | [address] | | | | | | | | [address] | | | | | | | | [place] | | | | | | | | [place] | | | | | | | | [address] | + + +--------+ + + + + | B-Type | March | 8 | | 0-100 | | [facility] | | Natriureti | 2018 | | | | | MEDICAL | | c Peptide | 2:19am | | | | | CENTER, | | | | | | | | [address] | | | | | | | | [address] | | | | | | | | [place] | | | | | | | | [place] | | | | | | | | [address] | + + +--------+ + + + + | Lipase | March | 260 | | 73-393 | | [facility] | | | 2018 | | | | | MEDICAL | | | 2:19am | | | | | CENTER, | | | | | | | | [address] | | | | | | | | [address] | | | | | | | | [place] | | | | | | | | [place] | | | | | | | | [address] | + + +--------+ + + + + Diagnostic Imaging Reports + + + + + | Report | Dictated Date/Time | Dictated By | Status | + + + + + | ELECTROCARDIOGRAM | April 05, 2019 | Quinten Alba MD | completed | | REPORT | 1:58am | | | + + + + + + + | | | Date of Service: 04/05/19 | | | | ELECTROCARDIOGRAM REPORT | | | | Normal sinus rhythm | | Incomplete right bundle branch block | | Left anterior fascicular block | | Septal infarct , age undetermined | | Abnormal ECG | | When compared with ECG of 10-SEP-2018 10:10, | | No significant change was found | | Confirmed by QUINTEN LAGOS M.D. ([id number]) on 04/05/2019 2:29:09 PM | | | | 04/05/19 1429 <Electronically signed by Quinten Alba MD in [place]> | + + + + + + + | Radiology | April 05, 2019 | Layton Ellison MD | completed | | | 9:43am | | | + + + + + + + | [facility] | | EXAM # TYPE/EXAM | | RESULT | | [id number] RAD/XR Chest-2V | | | | | | | | HISTORY: CHEST PAIN | | | | TECHNIQUE: Chest PA and lateral views. | | | | COMPARISON: 02 Sep 2018. | | | | FINDINGS: Cardiac leads are projected over the chest. The heart not enlarged. | | Lungs are clear. Costophrenic and costovertebral angles are sharp. Mediastinal | | structures unremarkable. | | | | IMPRESSION: Normal chest. | | | | Electronically Signed By: Layton Ellison MD | | Electronically Signed On: 04/05/2019 11:25 PST | | | | Dictated by: Layton Ellison MD | | 04/05/19 1127 <Electronically signed by Layton Ellison MD in [place]> | | | | CC: Marisel BergeronP; Madan Adamson DO | + + + + + + + | Ultrasound | April 05, 2019 | Victor Hugo Kingsley MD | completed | | | 10:24am | | | + + + + + + + | [facility] | | EXAM # TYPE/EXAM | | RESULT | | [id number] US /US Abdomen-Limited | | | | | | | | REASON FOR EXAM: Right upper quadrant abdominal pain, nausea. | | | | COMPARISON: CT abdomen/pelvis: 12/24/2018. | | | | TECHNIQUE: Liver/gallbladder ultrasound. | | | | FINDINGS: The liver is grossly normal in size and shape, measuring | | approximately 16.2 cm in craniocaudal dimension, midclavicular line. And | | echogenicity of the hepatic parenchyma is mildly increased and coarsened, | | suggesting underlying fatty infiltration. No focal hepatic lesions are seen. | | | | The gallbladder is partially contracted, as the patient was nothing by mouth for | | less than 6 hours prior to the examination, resulting in pseudowall thickening. | | No shadowing calculi are identified. There is no pericolic cystic fluid. No | | intrahepatic biliary ductal dilatation is present. The common bile duct is not | | dilated and measures 4 mm. | | | | The visualized portions of the head and proximal body of the pancreas are within | | normal limits. The distal body and tail are not visualized due to overlying | | bowel gas. | | | | The right kidney measures approximately 12.1 cm in length. A 6 mm anechoic cyst | | is identified arising from the superior pole. | | | | The visualized portions of the IVC are normal. | | | | IMPRESSION: | | 1. Partially contracted gallbladder, without sonographic evidence of | | cholelithiasis or acute cholecystitis. | | 2. Probable mild hepatic steatosis. | | | | Electronically Signed By: Victor Hugo Kingsley MD | | Electronically Signed On: 04/05/2019 10:27 PST | | | | Dictated by: Victor Hugo Kingsley MD | | 04/05/19 1029 <Electronically signed by Victor Hugo Kingsley MD in [place]> | | | | CC: Marisel Bergeron; Madan Adamson DO | + + Health Concerns No known health concerns documented Chief Complaint and Reason for Visit + + + | Reason for Visit | AMB CP SOB | + + + Encounters + + + + + + | Encounter | Location(s) | Arrival/Admit | Discharge/Depar | Provider(s) | | | | Date | t Date | | + + + + + + | Departed | [facility] | April 05, | April 05, | Madan Adamson | | Emergency | [facility] | 2018 1:54am | 2018 7:12am | D DO | + + + + + + + + + | Recent Diagnosis | Onset Date | + + + | Biliary colic | | + + + Assessments + + + +--------+ | Diagnosis | Onset Date | Resolution | Status | + + + +--------+ | Biliary colic | | | Active | + + + +--------+ Functional Status No Functional Status information available Goals No Goals Information Available Immunizations No Immunization Information Available Mental Status No Mental Status Information Available Medical Equipment No Medical Equipment Information available Plan of Treatment Future Tests Future scheduled test information is unavailable Pending Tests Pending diagnostic test information is unavailable Future Visits Future appointment information is unavailable Referrals to Other Providers + + + + + + | Reason for | Referral Start | Provider | Provider | Provider | | Referral | Date | | Contact | Address | | | | | Information | | + + + + + + | | | [facility] | | | | | | [address] | | | + + + + + + Future Procedures Future procedure information is unavailable Future Medications Future medication information is unavailable Patient Instructions + + | Nonspecific Chest Pain | + + | Biliary Colic | + + Social History Smoking Status + + + | Status | Date of Observation | + + + | Former smoker | April 05, 2019 3:17am | + + + Observation Status + + + + | Observation | Response | Date of Response | + + + + | MENTAL HEALTH PROBLEMS/ | No | June 14, 2016 11:17pm | + + + + + +------+ | Assigned Sex | Male | + +------+ Vital Signs + + + + | Vital Reading | Result | Collection Date/Time | + + + + | BP Systolic | 138 mm[Hg] | April 05, 2019 7:11am | + + + + | BP Diastolic | 81 mm[Hg] | April 05, 2019 7:11am | + + + + | Body Temperature | 97.9 [degF] | April 05, 2019 2:07am | + + + + | Respiratory rate | 16 /min | April 05, 2019 7:11am | + + + + | Heart Rate | 78 /min | April 05, 2019 7:11am | + + + + | Oxygen saturation by Pulse | 97 % | April 05, 2019 7:11am | | oximetry | | | + + + + | Height | 73 [in_i] | April 05, 2019 2:07am | + + + + | Weight | 280.00 [lb_av] | April 05, 2019 2:07am | + + + + | Weight | 127.01 kg | April 05, 2019 2:07am | + + + + | BMI (Body Mass Index) | 36.9 kg/m2 | April 05, 2019 2:07am | + + + +"
--- OUTSIDE RECORDS SUMMARY | ~2019-09-25 | XMS | Clinical Summary ---
Demographics + + + | Address | General Delivery | | | [place] [address] | + + + | Home Phone | ;ext=[phone] | + + + | Preferred Language | Unknown | + + + | Marital Status | U | + + + | Hoahaoism Affiliation | Unknown | + + + | Race | White | + + + | Ethnic Group | Not or | + + + Author + + + | Author | [facility] | + + + | Organization | [facility] | + + + | Address | [address] | | | [place] [address] | + + + | Phone | Unavailable | + + + Care Team Providers + +------+ + | Care Auxiliary Equipment Operator Name | Role | Phone | [...] | | tion | | +---------+---------+---------+---------+---------+---------+---------+---------+---------+ | CONTROL | [id number] | | Active | | Marisel | | Drug | | | LED | 03 | /19 | | /19 | Rubio | | therapy | | | SUBSTAN | (SNOMED | | | | PATTERN SCRATCHER | | | | | CE | CT) | | | | | | finding | | | AGREEME | | | | | | | | | | NT | | | | | | | | | | SIGNED | | | | | | | | | +---------+---------+---------+---------+---------+---------+---------+---------+---------+ | NASAL | [id number] | | Active | | Marisel | | Mass of | | | MASS | 09 | /19 | | /19 | Rubio | | nose | | | | (SNOMED | | | | PATTERN SCRATCHER | | | | | | CT) | | | | | | | | +---------+---------+---------+---------+---------+---------+---------+---------+---------+ | COSTOCH | [id number] | | Active | | Marisel | | Costal | | | ONDRITI | 4 | / | | | Rubio | | chondri | | | S, LEFT | (SNOMED | | | | PATTERN SCRATCHER | | tis | | | | CT) | | | | | | | | +---------+---------+---------+---------+---------+---------+---------+---------+---------+ | URI | [id number] | | Active | | Marisel | | Upper | | | | 9 | | | | Rubio | | respira | | | | (SNOMED | | | | PATTERN SCRATCHER | | tory | | | | CT) | | | | | | infecti | | | | | | | | | | on | | +---------+---------+---------+---------+---------+---------+---------+---------+---------+ | RIB | [id number] | | Active | | Marisel | | Rib | | | PAIN ON | 02 | | | | Rubio | | pain | | | LEFT | (SNOMED | | | | PATTERN SCRATCHER | | | | | SIDE | CT) | | | | | | | | +---------+---------+---------+---------+---------+---------+---------+---------+---------+ | POST- | [id number] | | Active | | Marisel | | Postvir | | | RAL | 04 | / | | / | Rubio | | al | | | COUGH | (SNOMED | | | | PATTERN SCRATCHER | | cough | | | SYNDROM | CT) | | | | | | | | | E | | | | | | | | | +---------+---------+---------+---------+---------+---------+---------+---------+---------+ | EPISTAX | [id number] | | Active | | David | | Epistax | | | IS, | 1 | / | | | Chicker | | is | | | RECURRE | (SNOMED | | | | ing [place] | | | | | NT | CT) | | | | | | | | +---------+---------+---------+---------+---------+---------+---------+---------+---------+ | NASAL | [id number] | | Active | | David | | Nasal | | | POLYP | 5 | | | | Chicker | | polyp | | | | (SNOMED | | | | ing [place] | | | | | | CT) | | | | | | | | +---------+---------+---------+---------+---------+---------+---------+---------+---------+ | BRONCHI | [id number] | | Active | | David | | Bronchi | | | TIS | 4 | /19 | | /19 | Chicker | | tis | | | | (SNOMED | | | | ing [place] | | | | | | CT) | | | | | | | | +---------+---------+---------+---------+---------+---------+---------+---------+---------+ | ACUTE | [id number] | | Active | | David | | Common | | | NASOPHA | 6 | /19 | | /19 | Chicker | | cold | | | RYNGITI | (SNOMED | | | | ing [place] | | | | | S | CT) | | | | | | | | +---------+---------+---------+---------+---------+---------+---------+---------+---------+ | ADJUSTM | [id number] | | Active | | Mariah | [...] mood | | +---------+---------+---------+---------+---------+---------+---------+---------+---------+ | CHRONIC | [id number] | | Active | | Faina | | Chronic | | | PAIN | | / | | | [place] | | pain | | | SYNDROM | (SNOMED | | | | WESTERN PHILOSOPHY PROFESSOR | | syndrom | | | E | CT) | | | | | | e | | +---------+---------+---------+---------+---------+---------+---------+---------+---------+ | PAIN | [id number] | | Active | | Faina | | Psychal | | | DISORDE | | / | | / | [place] | | urban | | | R | (SNOMED | | | | WESTERN PHILOSOPHY PROFESSOR | | | | | ASSOCIA | [...] | | | +---------+---------+---------+---------+---------+---------+---------+---------+---------+ | ANEMIA | [id number] | | Active | | Florecita | | Anemia | | | | 00 | /27 | | /27 | Suhr | | | | | | (SNOMED | | | | PATTERN SCRATCHER-C | | | | | | CT) | | | | | | | | +---------+---------+---------+---------+---------+---------+---------+---------+---------+ | APHTHOU | [id number] | | Active | | Charlen | | Aphthou | | | S ULCER | | / | | / | e Pimentel | | s ulcer | | | OF | (SNOMED | | | | CCMA | | of | | | MOUTH | CT) | | | | | | mouth | | +---------+---------+---------+---------+---------+---------+---------+---------+---------+ | DIFFICU | [id number] | | Active | | Nayan | | Walking | | | LTY IN | 08 | /20 | | /20 | Hersche | | | | | WALKING | (SNOMED | | | | r DO | | disabil | | | | CT) | | | | | | ity | | +---------+---------+---------+---------+---------+---------+---------+---------+---------+ | TOTAL | [id number] | | Active | | Florecita | | Total | | | HIP | 7 | /17 | | /17 | Suhr | | replace | | | ARTHROP | (SNOMED | | | | PATTERN SCRATCHER-C | | ment of | | | [...] , | -CM) | | | | PATTERN SCRATCHER-C | | osteoar | | | LOCALIZ [...] | | | +---------+---------+---------+---------+---------+---------+---------+---------+---------+ | FOOT | [id number] | | Resolve | | Florecita | | Foot | | | PAIN, | 7 | /15 | d | /15 | Suhr | | pain | | | RIGHT | (SNOMED | | | | PATTERN SCRATCHER-C | | | | | | CT) | | | | | | | | +---------+---------+---------+---------+---------+---------+---------+---------+---------+ | RECTAL | [id number] | | Resolve | | Florecita | | Rectal | per | | BLEEDIN | 2 | / | d | /15 | Suhr | | hemorrh | Sacred | | G | (SNOMED | | | | PATTERN SCRATCHER-C | | age | Heart | | | CT) | | | | | | | [facility] | | | | | | | | | | nd ER | | | | | | | | | | visit | | | | | | | | | | 05/11/14 | +---------+---------+---------+---------+---------+---------+---------+---------+---------+ | ANAL | [id number] | | Resolve | | Florecita | | Anal | per Dr. | | FISSURE | 6 | / | d | /30 | Suhr | | fissure | Alexander | | | (SNOMED | | | | PATTERN SCRATCHER-C | | | [place] | | | CT) | | | | | | | MD | +---------+---------+---------+---------+---------+---------+---------+---------+---------+ | NEW | [id number] | | Resolve | | Florecita | | Procedu | | | PATIENT | 03 | /24 | d | /24 | Suhr | | re | | | | (SNOMED | | | | PATTERN SCRATCHER-C | | carried | | | CONSULT | CT) | | | | | | out on | | | ATION | | | | | | | | | | | | | | | | | subject | | +---------+---------+---------+---------+---------+---------+---------+---------+---------+ | AVASCUL | [id number] | | Active | | Prabhakar | [...] femur | | +---------+---------+---------+---------+---------+---------+---------+---------+---------+ | URI | [id number] | | Inactiv | | Loraine | [...] on | | +---------+---------+---------+---------+---------+---------+---------+---------+---------+ | HYPERTE | 3634138 | | Active | | Rudy | | Hyperte | | | NSION | 3 | / | | | Monteir | | nsive | | | | (SNOMED | | | | o MD | | disorde | | | | CT) | | | | | | r | | +---------+---------+---------+---------+---------+---------+---------+---------+---------+ | ELEVATE | [id number] | | Active | | Rudy | | Hypergl | | | D BLOOD | 7 | / | | | Monteir | | ycemia | | | SUGAR | (SNOMED | | | | o MD | | | | | | CT) | | | | | | | | +---------+---------+---------+---------+---------+---------+---------+---------+---------+ | NEW | [id number] | | Removed | | Rudy | | Procedu | | | PATIENT | 03 | | | /24 | Monteir | | re | | | | (SNOMED | | | | o MD | | carried | | | CONSULT | CT) | | | | | | out on | | | ATION | | | | | | | | | | | | | | | | | subject | | +---------+---------+---------+---------+---------+---------+---------+---------+---------+ | SCREENI | [id number] | | Resolve | | Rudy | [...] ng | | +---------+---------+---------+---------+---------+---------+---------+---------+---------+ | SCREENI | 5562596 | | Resolve | | Rudy | [...] ng | | +---------+---------+---------+---------+---------+---------+---------+---------+---------+ | NICOTIN | 1326738 | | Active | | Prabhakar | | Nicotin | | | E | 8 | /08 | | /08 | | | e | | | ADDICTI | (SNOMED | | | | VanAnro | | depende | | | ON | CT) | | | | oy MD | | nce | | +---------+---------+---------+---------+---------+---------+---------+---------+---------+ | ASEPTIC | 5623432 | | Inactiv | | Ann | | Aseptic | | | | 05 | | e | / | Yarbrou | [...] hip | | +---------+---------+---------+---------+---------+---------+---------+---------+---------+ | URI | 6392516 | | Inactiv | | Phan | | Upper | | | | 9 | / | e | | Middlek | | respira | | | | (SNOMED | | | | auff | | tory | | | | CT) | | | | PATTERN SCRATCHER | | infecti | | | | | | | | | | on | | +---------+---------+---------+---------+---------+---------+---------+---------+---------+ | SORE | [id number] | | Inactiv | | Phan | | Pain in | | | THROAT | 03 | /19 | e | /19 | Middlek | | throat | | | | (SNOMED | | | | auff | | | | | | CT) | | | | PATTERN SCRATCHER | | | | +---------+---------+---------+---------+---------+---------+---------+---------+---------+ | OTHER | 3834648 | | Active | | Prabhakar | [...] | | | +---------+---------+---------+---------+---------+---------+---------+---------+---------+ | OPIOID | 7269631 | | Active | | Phan | | Nondepe | | | ABUSE, | 05 | /28 | | /28 | Middlek | | ndent | | | CONTINU | (SNOMED | | | | auff | | opioid | | | OUS | CT) | | | | PATTERN SCRATCHER | | abuse, | | | | | | | | | | continu | | | | | | | | | | ous | | +---------+---------+---------+---------+---------+---------+---------+---------+---------+ | HIP | 6068036 | | Active | | Phan | | Hip | | | PAIN, | 2 | /28 | | /28 | Middlek | | pain | | | LEFT | (SNOMED | | | | auff | | | | | | CT) | | | | PATTERN SCRATCHER | | | | +---------+---------+---------+---------+---------+---------+---------+---------+---------+ | UPPER | 7622589 | | Inactiv | | Malachi K [...] on | | +---------+---------+---------+---------+---------+---------+---------+---------+---------+ | BRACHIA | 9492120 | | Inactiv | | Malachi Levin [...] | | | +---------+---------+---------+---------+---------+---------+---------+---------+---------+ | RIB | [id number] | | Inactiv | | Malachi Levin | | Rib | | | PAIN | | | | | Dye | | pain | | | | (SNOMED | | | | ACNP | | | | | | CT) | | | | | | | | +---------+---------+---------+---------+---------+---------+---------+---------+---------+ | LESION | 8144947 | | Active | | Clementina | | Plantar | | | OF | 04 | | | / | | | nerve | | | [...] | | | +---------+---------+---------+---------+---------+---------+---------+---------+---------+ | ANAL | 0205500 | | Removed | | Karissa | | Anal | per | | FISSURE | 6 | | | / | Sea | | fissure | Alexander | | | (SNOMED | | | | RN | | | [place] | | | CT) | | | | | | | MD | +---------+---------+---------+---------+---------+---------+---------+---------+---------+ | RECTAL | 4126800 | | Removed | | Rodrigo | [...] | 05/11/14 | +---------+---------+---------+---------+---------+---------+---------+---------+---------+ | SCREENI | 3173473 | | Removed | | Juan | [...] ng | | +---------+---------+---------+---------+---------+---------+---------+---------+---------+ | SCREENI | 1661342 | | Removed | | Andriy | | Alcohol | | | NG FOR | | | | | Padovic | | | | | ALCOHOL | (SNOMED | | | | h PATTERN SCRATCHER | | consump | | | ISM | CT) | | | | | | tion | | | | | | | | | | screeni | | | | | | | | | | ng | | +---------+---------+---------+---------+---------+---------+---------+---------+---------+ | FOOT | 8910631 | | Removed | | Skye | | Foot | | | PAIN, | 7 | /15 | | /15 | Epifanio | | pain | | | RIGHT | (SNOMED | | | | PATTERN SCRATCHER | | | | | | CT) [...] | 1 | | | BISACODYL | [id number] | Florecita | | 10 MG | suppositor | | | | 1 | Suhr PATTERN SCRATCHER-C | | SUPP | y QHS PRN [...] | | | | | | | PATTERN SCRATCHER | + + + + + + + + | MIRALAX | 17grams | | | POLYETHYLE | 7893476387 | Melvina | | POWD | mixed [...] Apply prn | | | BALSAM | [id number] | Nayan | | 650-72.5 | to lower | | | JOSEPH-GEOVANY | 3 | Parks | | MG/0.82ML | lip for | [...] | | | | RSBG | | Mackenzei PATTERN SCRATCHER-C | + + + + + + + + | CEPACOL | 1 lozenge | | | BENZOCAINE | 5813599802 | Karma | | SORE | every [...] | | | PAIN | | Cyndi [place] | | AGREEMENT | 1.2.15 | | | AGREEMENT | | NCMA | | D RATHER | | | | D RATHER | | | + + + + + + + + | UDS | 1.2.15 | | | UDS | | Cyndi [place] | | | consistent | | | | | NCMA | + + + + + + + + | COLACE 100 | 1 cap BID | | | DOCUSATE | [id number] | Florecita | | MG CAPS | | | | SODIUM | 0 | Mackenzie GUPTAP-C | + + + + + + + + | [facility] LYS[facility] | take 1 tab | | | LYSINE | 5650347102 | David | | 1000 MG | [...] tab BID | | | CYCLOBENZA | [id number] | Florecita | | YESSY HCL | PRN muscle | | | YESSY HCL | 1 | Suhr PATTERN SCRATCHER-C | | 10 MG TABS | pain | | | | | | + + + + + + + + | NORCO | 1 every 8 | | | HYDROCODON | 7347383399 | Rudy | | 5-325 MG | hours as | | | E-ACETAMIN | 1 | Yaquelin | | TABS | needed | | | OPHEN | | MD | + + + + + + + + | NORCO | 1 tab po | | | HYDROCODON | 9329821016 | Karma | | 5-325 MG | QD | | | E-ACETAMIN | 1 | Berenice MA | | TABS | | | | OPHEN | | | + + + + + + + + | PSEUDOEPHE | 1-2 | | | PSEUDOEPHE | 7607084805 | Marisel | | DRINE HCL | tablets | | | DRINE HCL | 2 | Rubio PATTERN SCRATCHER | | 30 MG TABS | every [...] 1 by | | | TRAMADOL | 4928805692 | Marisel | | HCL 50 MG | mouth | | | HCL | 1 | Rubio PATTERN SCRATCHER | | TABS | every 6 | | | | | | | | hours | | | | | | + + + + + + + + | OXYCODONE | 3-4 per | | | OXYCODONE | 1381209282 | Karma | | HCL 10 MG | day | | | HCL | 1 | Berenice CONRAD | | TABS | | | | | | | + + + + + + + + | OXYCODONE | 1 tab q 4 | | | OXYCODONE | 7018172861 | Karma | | HCL 15 MG | hrs PRN | | | HCL | 1 | Berenice CONRAD | | TABS | pain | | | | | | + + + + + + + + | HYDROCODON | Take 1 tab | | | HYDROCODON | 7161993475 | Melvina | | E-ACETAMIN | po [...] 1 tab | | | TRAMADOL | 8678200510 | Karma | | HCL 50 MG [...] 1 tab | | | OXYCODONE- | 5290278064 | Phan | | ACETAMINOP | by mouth | | | ACETAMINOP | 5 | Middlekauf | | HEN 5-325 | three | | | HEN | | f PATTERN SCRATCHER | | MG TABS | times per [...] Take 1 | | | AMITRIPTYL | 1574469755 | Marisel | | MG TABS | tab po QHS | | | INE HCL | 0 | Rubio PATTERN SCRATCHER | + + + + + + + + | GUAIFENESI | take 1 to | | | GUAIFENESI | 2845779512 | Marisel | | N 200 MG | 2 tablets | | | N | 0 | Rubio PATTERN SCRATCHER | | TABS | by mouth | [...] Inhale 2 | | | ALBUTEROL | 9499864131 | Malachi Levin | | 108 (90 [...] NORCO | 4-6 per | | | ANNAODON | 8076393949 | Prabhakar | | 5-325 MG | day | | | E-ACETAMIN | 1 | VanMarinerooy | | TABS | | | | OPHEN | | MD | + + + + + + + + | COUMADIN 4 | 1 tab | | | WARFARIN | 2561622594 | David | | MG TABS | [...] + + + + + + | ERICKSONM | Apply hernandezn | | | BALSAM | 2004845310 | David | | 650-72.5 | to [...] | 17grams | | | POLYETHYLE | 3663874145 | David | | POWD | mixed [...] 1 tab | | | WARFARIN | 5459772362 | Florecita | | MG TABS | daily | | | SODIUM | 0 | Suhr PATTERN SCRATCHER-C | + + + + + + + + | OXYCODONE | 3-4 per | | | OXYCODONE | 2276515002 | Rudy | | HCL 10 MG | day | | | HCL | 1 | Yaquelin | | TABS | | | | | | MD | + + + + + + + + | TESSALON | Take three | | | BENZONATAT | 8878343433 | Karma | | PERLLOUISA 100 | times a | | | E | 1 | Berenice CONRAD | | MG CAPS | day as [...] | three | | | IBUPROFEN | 6742044494 | Prabhakar | | 600 MG | times per | | | | 0 | Adrianrotim | | TABS | day | | | | | MD | + + + + + + + + | LISINOPRIL | 1 tab one | | | LISINOPRIL | 3613522005 | David | | 20 MG | time per | | | | 1 | Chickering | | TABS | day | | | | | MA | + + + + + + + + | [facility] MILK | prn | | | MAGNESIUM | 9563644046 | David | | OF | constipati [...] cap BID | | | DOCUSATE | [id number] | David | | MG CAPS | | | | SODIUM | 0 | Chick[place] | | | | | | | | MA | + + + + + + + + | TYLENOL 8 | 1 tablet | | | ACETAMINOP | 5225701957 | Nayan | | HOUR | every 4 | | | HEN | 1 | Parks | | ARTHRITIS | hours as | [...] TAB Q6 | | | TRAMADOL | 4259204658 | Rudy | | HCL 50 MG | HRS PRN | | | HCL | 1 | Yaquelin | | TABS | PAIN | | | | | MD | + + + + + + + + | CLINDAMYCI | 1 tab by | | | CLINDAMYCI | 8623668836 | Tommy | | N HCL 150 [...] Inhale 2 | | | ALBUTEROL | 0650648528 | Phan | | 108 (90 | puffs | | | SULFATE | 2 | Middlekauf | | Base) | every 4 | | | | | f PATTERN SCRATCHER | | MCG/ACT | hours as | [...] tab q | | | OXYCODONE- | 9697524821 | Florecita | | 7.5-325 MG | 4 hrs for | | | ACETAMINOP | 0 | Suhr PATTERN SCRATCHER-C | | TABS | pain, hold | [...] po bid | | | HYDROCODON | 1971806500 | Cyndi [place] | | E-ACETAMIN | prn severe | | | E-ACETAMIN | 1 | NCMA | | OPHEN | pain | | | OPHEN | | | | 5-325 MG | | | | | | | | TABS | | | | | | | + + + + + + + + | NORCO | 4-6 per | | | HYDROCODON | 5297404508 | Karma | | 5-325 MG | day | | | E-ACETAMIN | 1 | Berenice MA | | TABS | | | | OPHEN | | | + + + + + + + + | TRAMADOL | 1-2 TAB | | | TRAMADOL | 4730951878 | David | | HCL 50 MG | BID PRN | | | HCL | 1 | Chick[place] | | TABS | PAIN | | | | | MA | + + + + + + + + | GUAIFENESI | 1 tab | | | GUAIFENESI | 7415437400 | Karma | | N 400 MG [...] 2tabs po | | | VARENICLIN | 4344677781 | Rudy | | MG TABS | qd | | | E TARTRATE | 6 | Yaquelin | | | | | | | | MD | + + + + + + + + | BISAC-EVAC | 1 | | | BISACODYL | 0107438534 | David | | 10 MG | [...] 1 tab | | | PSEUDOEPHE | 2312645276 | Phan | | ARVIND HCL | by mouth | | | ARVIND HCL | 2 | Middlekauf | | 30 MG TABS | four times | | | | | f PATTERN SCRATCHER | | | per day | | [...] 1tab by | | | HYDROCODON | 9994924113 | David | | 7.5-325 MG | [...] Take 1 | | | DOXYCYCLIN | 0140882991 | Malachi K | | E HYCLATE | capsule by [...] day | | | 20MG | | Given MA | + + + + + [...] 1 tablet | | | MELOXICAM | 0459951612 | Phan | | MG TABS | by mouth | | | | 1 | Middlekauf | | | daily. | | | | | f PATTERN SCRATCHER | | | Must last | | | | | | | | 30 days. | | | | | | + + + + + + + + | CLINDAMYCI | 1 tab by | | | CLINDAMYCI | 7544989686 | Malachi K | | N HCL [...] | prn | | | MAGNESIUM | 8583098840 | Melvina | | OF | constipati [...] By mouth | | | IBUPROFEN | 2395772109 | Andriy | | 200 MG | 3 times a | | | | 1 | Padovich | | TABS | day | | | | | PATTERN SCRATCHER | + + + + + + + + | CHANTIX 1 | 1 tab two | | | VARENICLIN | 2989966268 | Karma | | MG TABS | times per | | | E TARTRATE | 6 | Berenice MA | | | day | | | | | | + + + + + + + + | HYDROCODON | Take 1 tab | | | HYDROCODON | 0681682570 | Karma | | E-ACETAMIN | po [...] tab BID | | | CYCLOBENZA | 6896227613 | David | | YESSY HCL | PRN muscle | | | YESSY HCL | 1 | Chick[place] | | 10 MG TABS | pain | | | | | MA | + + + + + + + + | IBUPROFEN | three | | | IBUPROFEN | 0153061964 | Rudy | | 600 MG | times per | | | | 0 | Yaquelin | | TABS | day | | | | | MD | + + + + + + + + | PERCOCET | take 1 by | | | OXYCODONE- | 6742787802 | Marisel | | 5-325 MG | mouth two | | | ACETAMINOP | 0 | Rubio PATTERN SCRATCHER | | TABS | times per | [...] | follow | | | VARENICLIN | 9765578331 | Marisel | | STARTING | instructio | | | E TARTRATE | 3 | Rubio DEL CID | | MONTH LIZA | ns on [...] 1 by | | | TRAMADOL | 3604991214 | Marisel | | HCL 50 MG | mouth | | | HCL | 1 | Rubio DEL CID | | TABS | every 6 | | | | | | | | hours | | | | | | + + + + + + + + | PSEUDOEPHE | 1-2 | | | PSEUDOEPHE | 2306447669 | Marisel | | DRINE HCL | tablets | | | DRINE HCL | 2 | Rubio PATTERN SCRATCHER | | 30 MG TABS | every [...] | 1-2 | | | PSEUDOEPHE | 0516219502 | Marisel | | DRINE HCL | tablets | | | DRINE HCL | 2 | Rubio PATTERN SCRATCHER | | 30 MG TABS | every [...] 1 to | | | GUAIFENESI | 8235073422 | Marisel | | N 200 MG | 2 tablets | | | N | 0 | Rubio PATTERN SCRATCHER | | TABS | by mouth | [...] 1 spray | | | FLUTICASON | 5479122321 | Marisel | | ALLERGY | eash | | | E | 2 | Rubio PATTERN SCRATCHER | | RELIEF 50 | nostril | | | PROPIONATE | | | | MCG/ACT | once a day | | | | | | | SUSP | | | | | | | + + + + + + + + | LISINOPRIL | 1 tab one | | | LISINOPRIL | 8774190174 | Rudy | | 20 MG | time per | | | | 1 | Yaquelin | | TABS | day | | | | | MD | + + + + + + + + | CHANTIX 1 | take 1tab | | | VARENICLIN | 8766938691 | Rudy | | MG TABS | po daily | | | E TARTRATE | 6 | Yaquelin | | | | | | | | MD | + + + + + + + + | ELAVIL 25 | Take 1 | | | AMITRIPTYL | 9206905824 | Rudy | | MG TABS | tab po QHS | | | INE HCL | 0 | Yaquelin | | | | | | | | MD | + + + + + + + + | TRAMADOL | 1-2 TAB | | | TRAMADOL | 4771616710 | Rudy | | HCL 50 MG | BID PRN | | | HCL | 1 | Yaquelin | | TABS | PAIN | | | | | MD | + + + + + + + + | TRAMADOL | 1 TAB BID | | | TRAMADOL | 8563262725 | Rudy | | HCL 50 MG | PRN PAIN | | | HCL | 1 | Yaquelin | | TABS | | | | | | MD | + + + + + + + + | NORCO | 1tab by | | | HYDROCODON | 0296414871 | Rudy | | 7.5-325 MG | [...] TAB Q6 | | | TRAMADOL | 2374397921 | Prabhakar | | HCL 50 MG | HRS PRN | | | HCL | 1 | VanAnrooy | | TABS | PAIN | | | | | MD | + + + + + + + + | NORCO | 1tab po | | | HYDROCODON | 6516281033 | Rudy | | 7.5-325 MG | [...] tab po | | | HYDROCODON | 1856833507 | Rudy | | 5-325 MG | QD | | | E-ACETAMIN | 1 | Yaquelin | | TABS | | | | OPHEN | | MD | + + + + + + + + | TRAMADOL | take 1 tab | | | TRAMADOL | 5767417568 | Rudy | | HCL 50 MG | nightly | | | HCL | 1 | Yaquelin | | TABS | | | | | | MD | + + + + + + + + | NORCO | 1 every 8 | | | HYDROCODON | 5108341208 | Prabhakar | | 5-325 MG | hours as | | | E-ACETAMIN | 1 | VanMarinerooy | | TABS | needed | | | OPHEN | | MD | + + + + + + + + | OXYCODONE | 1 tab q 4 | | | OXYCODONE | [id number] | Florecita | | HCL 15 MG | hrs PRN | | | HCL | 1 | Suhr PATTERN SCRATCHER-C | | TABS | pain | | | | | | + + + + + + + + | [facility] LYSINE | take 1 tab | | | LYSINE | [id number] | Rudy | | 1000 MG | [...] tab q | | | OXYCODONE- | [id number] | Florecita | | 7.5-325 MG | 4 hrs for | | | ACETAMINOP | 0 | Suhr PATTERN SCRATCHER-C | | TABS | pain, hold | | | HEN | | | | | if | | | | | | | | somnolent | | | | | | | | or asleep. | | | | | | + + + + + + + + | PERCOCET | 1-2 tab q | | | OXYCODONE- | [id number] | Florecita | | 7.5-325 MG | 4 hrs PRN | | | ACETAMINOP | 0 | Suhr PATTERN SCRATCHER-C | | TABS | pain, | | | HEN | | | | | dispense | | | | | | | | #84 | | | | | | + + + + + + + + | TESSALON | Take three | | | BENZONATAT | [id number] | Loraine | | RACHEL 100 | times a | | | E | 1 | Koko PA-C | | MG CAPS | day [...] 1tab po | | | VARENICLIN | [id number] | Rudy | | MG TABS | bid | | | E TARTRATE | 6 | Yaquelin | | | | | | | | MD | + + + + + + + + | HYDROCODON | Take 1 tab | | | HYDROCODON | [id number] | Rudy | | E-ACETAMIN | po [...] po qd | | | LISINOPRIL | [id number] | Rudy | | 20 MG | | | | | 1 | Yaquelin | | TABS | | | | | | MD | + + + + + + + + | TRAMADOL | 1 TAB Q6 | | | TRAMADOL | [id number] | Prabhakar | | HCL 50 MG | HRS PRN | | | HCL | 1 | VanAnrooy | | TABS | PAIN | | | | | MD | + + + + + + + + | CEPACOL | 1 lozenge | | | BENZOCAINE | [id number] | Phan | | SORE | every 2 | | | -MENTHOL | 0 | Middlekauf | | THROAT | hours as | | | | | f PATTERN SCRATCHER | | 10-2.1 MG | needed for | | | | | | | LOZG | sore | | | | | | | | throat | | | | | | + + + + + + + + | GUAIFENESI | 1 tab | | | GUAIFENESI | [id number] | Phan | | N 400 MG | every 4 | | | N | 0 | Middlekauf | | TABS | hours as | | | | | f PATTERN SCRATCHER | | | needed for | | | | | | | | | | | | | | | | cough/yaw | | | | | | | | estion | | | | | | + + + + + + + + | PSEUDOEPHE | Take 1 tab | | | PSEUDOEPHE | [id number] | Malachi Levin | | DRINE HCL [...] Take 3 | | | PREDNISONE | [id number] | Malachi Levin | | 20 MG [...] 1 tab | | | OXYCODONE- | [id number] | Malachi Levin | | ACETAMINOP | [...] Take 1 | | | GABAPENTIN | [id number] | Malachi Levin | | 300 MG [...] 1 tab | | | CYCLOBENZA | [id number] | Malachi Levin | | YESSY HCL [...] po bid | | | HYDROCODON | [id number] | Tommy | | E-ACETAMIN | prn [...] 1 tablet | | | MELOXICAM | [id number] | Jovany | | MG TABS | [...] | | | | | | | PATTERN SCRATCHER | + + + + + + + +---+ + | | Allergy excluded from report: | +---+ + +---------+ + + + + + | CODEINE | | | Critical | No Longer | Prabhakar | | | | | | Active | Uzma HENDERSON | +---------+ + + + + + | CODEINE | Itch | | Critical | No Longer | Phan | | | | | | Active | Abeluff | | | | | | | PATTERN SCRATCHER | +---------+ + + + + + | CODEINE | Itch | | Critical | No Longer | Skye | | | | | | Active | Epifanio PATTERN SCRATCHER | +---------+ + + + + + | SULFA | Break out in | | Critical | | Skye | | | hives | | | | Epifanio PATTERN SCRATCHER | +---------+ + + + + + Results +------+------+-------+------+-------+------+ + | Date | Name | Value | Unit | Range | Flag | Descriptio | | | | | | | | n | +------+------+-------+------+-------+------+ + + + | Office Visit: ENT [...] +-------+---+---+ + + + | Office Visit: 1 week F/U URI/MEDS | + + + +--------+------+---+---+---+ + | [...] +--------+------+---+---+---+ + + + | Office Visit: URI | + + + +--------+------+---+---+---+ + | [...] | + +--------+------+---+---+---+ + + + | Lab Report: C [...] Visit: pain management | + + + +--------+------+---+---+---+ + | [...] +--------+------+---+---+---+ + + + | Office Visit: [facility] [...] +--------+ +---+---+---+ + | | [facility]_RR | [id number] | | | B | e-scripts | [...] | | | | | | | [id number]` | | | | | | | | [phone] | | | | | | | [...] Visit: Hip Pain | + + + +---------+------+---+---+---+ + | | DIET | yes | | | | 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 | [...] | | | | ) | + +---------+------+---+---+---+ + | | MEDS | Done | [...] | | | | ) | + +---------+------+---+---+---+ + + + | Nurse Encounter: nurse [...] and Hip pain | + + + +---------+------+---+---+---+ + | | MEDS | Done | [...] | | | | ) | + +---------+------+---+---+---+ + | | DIET | yes | | | | 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 | [...] | | | | ) | + +---------+------+---+---+---+ + + + | Lab Report: C-REACTIVE [...] Sed Rate, [place] | + + + + + + [...] L MELONY 06/14/16 | + + + +--------+------+---+---+---+ + | [...] +--------+------+---+---+---+ + + + | Office Visit: f/u Total hip Arthroplasty-lft | + + + +--------+------+---+---+---+ + | [...] +--------+------+---+---+---+ + + + | Office Visit: Ortho Post op L MELONY 06/14/16 | + + + +--------+------+---+---+---+ + | [...] | + +--------+------+---+---+---+ + + + | Lab Report: CBC [...] + + +---+ + + + | Usp Facility: [facility] / Discharge anticipated [...] + + +---+ + + + | Usp Facility: [facility] Facility [facility] / Initial Encounter | + + + +--------+------+---+---+---+ + | [...] | + +--------+------+---+---+---+ + + + | Lab Report: Prothrombin [...] L MELONY 06/14/16 | + + + +--------+------+---+---+---+ + | [...] | + +--------+------+---+---+---+ + + + | Lab Report: Basic [...] Visit: WI: cough | + + + +--------+------+---+---+---+ + | [...] | + +--------+------+---+---+---+ + + + | Lab Report: Cotinine [...] +--------+-----+---+---------+---+ + + + | Office Visit: [employer] 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- lft hip pain | + [...] | | | 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 | [...] ) | + + + +-------+---+---+ + Plan of Care + + + + | Type | Date | Detail | + + + + | Appointment | 03:00 PM | [facility], [address] | | | | [facility], [address], | | | | [place], [address], | | | | | + + + + | Appointment | 11:20 AM | Prabhakar Gusman MD, [address] | | | [address], | | | | [place], [address], | + + + + | Appointment | 01:00 PM | [facility], [address] | | | | [address] , [address], | | | | [place], [address], | | | | | + + + + | Referral | | ENT Consult | | | | [facility] Phone #, [phone] | | [address], | | | | [place], [address] | | | | | + + + + | Referral | | ENT Consult | | | | [facility] Phone #, [phone] | | | [address], | | | | [place], [address] | | | | | + + + + | Referral | | Podiatry Consult | | | | [facility], | | | | [address] [facility], | | | | [place], [address] | | | | | + + [...] + | Pending order | | MR Darek-BRITTANY Con-Lt | + + + + | Pending order | | XR Foot 2V-Rt | + + + + | Pending order | | XR Foot 2V-Rt | + + + + Procedures + + + + + | Code | Procedure Name | Date | Entry Date | + + + + + | [id number] | Overweight | | | + + + + + | [id number] | Overweight | | | + + + + + | CPT-J1885 | Toradol 15mg | | | + + + + + | CPT-64002 | Theraputic | | | | | Injection (IM/SubQ) | | | + + + + + | [id number] | Overweight | | | + + + + + | CPT-87326 | Theraputic | | | | | Injection (IM/SubQ) | | | + + + + + | CPT-J1885 | Toradol 15mg | | | + + + + + | CPT-32088 | Urine Toxicology | | | | | Screen, Multiple | | | | | Drug Classes by | | | | | Direct Optical | | | | | Observation | | | + + + + + | CPT-33968 | [address] [facility] Individual | | | | | Therapy (53-112) | | | | | No POS Phone | | | + + + + + | CPT-78843 | XR Hip W/Pelvis | | | | | 2-3V-Lt | | | + + + + + | CPT-89573 | Theraputic | | | | | Injection (IM/SubQ) | | | + + + + + | CPT-J1885 | Toradol 15mg | | | + + + + + | CPT-92403 | Urine Toxicology | | | | | Screen, Multiple | | | | | Drug Classes by | | | | | Direct Optical | | | | | Observation | | | + + + + + | CPT-28751 | Theraputic | | | | | Injection (IM/SubQ) | | | + + + + + | CPT-J1885 | Toradol 15mg | | | + + + + + | CPT-63675 | Theraputic | | | | | Injection (IM/SubQ) | | | + + + + + | CPT-J1885 | Toradol 15mg | | | + + + + + | CPT-25893 | Theraputic | | | | | Injection (IM/SubQ) | | | + + + + + | CPT-J1885 | Toradol 15mg | | | + + + + + | CPT-93265 | XR Hip W/Pelvis | | | | | 2-3V-Lt | | | + + + + + | CBC AUTO 42188 | CBC w/ Auto Diff | | | + + + + + | CPT-27406 | XR Hip W/Pelvis | | | | | 2-3V-Lt | | | + + + + + | CBC AUTO 58935 | CBC w/ Auto Diff | | | + + + + + | M NOS MRSA 49778 | Nose Culture, MRSA | | | | | Only | | | + + + + + | CHEM 8 77877 | Basic Metabolic | | | | | Panel | | | + + + + + | CPT-00014 | Health Risk | | | | | Assessment | | | + + + + + | GLYCO HGB 73444 | Glyco Hemoglobin, | | | | | A1C | | | + + + + + | CPT-52343 | Health Risk | | | | | Assessment | | | + + + + + | CPT-63123 | Health Risk | | | | | Assessment | | | + + + + + | U NICOTINE 79515 | Cotinine | | | + + + + + | 34215 | MR Hip-WO Con-Lt | | | + + + + + | CPT-75132 | XR Hip W/Pelvis | | | | | 2-3V-Lt | | | + + + + + | CPT- 03891 | Administration | | | | | (19705) | | | + + + + + | CPT-J1885 | Toradol Inj. 60mg | | | + + + + + | CPT-29816 | Urine Tox, multiple | | | | | drug classes | | | + + + + + | 34240 | XR Foot 2V-Rt | | | + + + + + | [id number] | [Recorded for CQM] | | | | | Pedal pulse taking | | | | | (procedure) | | | + + + + + | [id number] | [Recorded for CQM] | | | | | Documentation of | | | | | current medications | | | | | (procedure) | | | + + + + + | [id number] | [Recorded for CQM] | | | | | Health-related | | | | | behavior | | | + + + + + | [id number] | MU Generic Patient | | | | | Encounter Service | | | | | (from patch) | | | + + + + + | [id number] | [Recorded for CQM] | | | | | Pedal pulse taking | | | | | (procedure) | | | + + + + + | [id number] | [Recorded for CQM] | | | | | Documentation of | | | | | current medications | | | | | (procedure) | | | + + + + + | [id number] | [Recorded for CQM] | | | | | Drug or Medication | | | + + + + + | [id number] | [Recorded for CQM] | | | | | Details of drug | | | | | misuse behavior | | | + + + + + | [id number] | [Recorded for CQM] | | | | | Never smoker | | | + + + + + | [id number] | [Recorded for CQM] | | | | | Never smoked | | | | | tobacco (finding) | | | + + + + + | [id number] | [Recorded for CQM] | | | | | Tobacco use and | | | | | exposure | | | + + + + + | [id number] | [Recorded for CQM] | | | | | Alcohol intake | | | + + + + + | [id number] | [Recorded for CQM] | | | | | Allergy | | | + + + + + | 432681587 | [Recorded for CQM] | | | | | Alcohol intake | | | + + + + + | [id number] | [Recorded for CQM] | | | | | Tobacco use and | | | | | exposure | | | + + + + + | [id number] | [Recorded for CQM] | | | | | Details of drug | | | | | misuse behavior | | | + + + + + | 645463066 | [Recorded for CQM] | | | | | Drug or Medication | | | + + + + + | [id number] | [Recorded for CQM] | | | | | Current Light | | | | | tobacco smoker | | | + + + + + | [id number] | [Recorded for CQM] | | | | | Light tobacco | | | | | smoker (finding) | | | + + + + + | [id number] | [Recorded for CQM] | | | | | Documentation of | | | | | current medications | | | | | (procedure) | | | + + + + + | [id number] | [Recorded for CQM] | | | | | Pedal pulse taking | | | | | (procedure) | | | + + + + + | 30981 | XR Foot 2V-Rt | | | [...]
--- OUTSIDE RECORDS SUMMARY | ~2019-09-25 | XMS | Continuity of Care Document ---
Demographics + + + | Address | [address] | | | [place] [address] | + + + | Home Phone | | + + + | Preferred Language | Unknown | + + + | Marital Status | Unknown | + + + | Confucianism Affiliation | Unknown | + + + | Race | Unknown | + + + | Ethnic Group | Unknown | + + + Author + + + | Author | [facility] | + + + | Organization | [facility] | + + + | Address | [address] | | | [place] [address] | + + + | Phone | | + + + Support + + + + + | Name | Relationship | Address | Phone | + + + + + | Madan Adamson DO | Caregiver | [address] | | | | | [place] | | | | | [address] | | + + + + + | Rudy Jamison MD | Caregiver | [address] | | | | | [place] [address] | | + + + + + | JAYME KIRK | Next Of Kin | [place] [address] | | + + + + + Care Team Providers + + + + | Care [employer] Service Management Teacher Name | Role | Phone | + + + + | Rudy Jamison MD | Unavailable | | + + + + Insurance Providers + + + + + | Payer Name | Policy Number | Subscriber Name | Relationship | + + + + + | [facility] | [id number] | BOBBY STODDARD | SELF | + + + + + Chief Complaint and Reason for Visit + + + | Reason for Visit | EPISTAXIS | + + + Problems Active Medical [...] + +------+-------+-------+ + + + + | Hydrocod | 1 | EACH | ORAL | | 6 | | | | one | | | | | | | | | Bit/Acet | | | | | | | | | aminophe | | | | | | | | | n | | | | | | | | | (Hydroco | | | | | | | | | done-Apa | | | | | | | | | p 10-325 | | | | | | | | | Tablet) | | | | | | | | | 1 EACH | | | | | | | | | TABLET | | | | | | | | + +------+-------+-------+ + + + + | Hydrocod | 1 | TAB | ORAL | Every 4 | 14 | | 05/14/17 | | one | | | | Hours as | | | | | Bit/Acet | | | | needed | | | | | aminophe | | | | for Pain | | | | | n ([place] | | | | | | | | | 5-325 | | | | | | | | | Tablet) | | | | | | | | | 1 EACH | | | | | | | | | TABLET | | | | | | | | + +------+-------+-------+ + + + + | Oxymetaz | 1 | SPRAY | Nasal | Q12H as | 15 | | 05/14/17 | | oline | | | | needed | | | | | Hcl | | | | for | | | | | (Afrin) | | | | Irritati | | | | | 15 ML | | | | on | | | | | SOLN | | | | | | | [...] Needed as needed | | | | ([place] 5-325 | for PAIN | | | | Tablet) 1 Each | | | | | Tablet Tablet, 1-2 | | | | | Tab Oral | | | | + + + + + | Hydrocodone/Acetami | | Unknown | Discontinued | | nophen ([place] | | | | | 5MG-325MG) 5 [...] Mg | Pain | | | | ([place] 10-325 Mg) | | | | | 10 Mg/325 Mg Tab | | | | | Tab, 0.5-1 Tab Oral | | | | + + + + + | Hydrocodone/Apap | Every 6 Hours | 08/15/16 | Discontinued | | 5-325 Mg ([place] | | | | | 5-325 Mg) [...] + + + | Discharge Date | 05/14/17 | + + + | Disposition | HOME | + + + | Condition at Discharge | Good | + + + | Instructions/Education Provided | Deviated Septum | | | Nosebleed | + + + | Prescriptions | See Medications Section | + + + | Referrals | Rudy Jamison MD - | | | | | | Davi Early MD - | + + + | Additional Instructions/Education | follow up with ENT, apply pressure for | | | 5-10 minutes if bleeding starts , returnto | | | ER if severe bleeding that does not stop, | | | swallowing a lot of blood or asneeded | + + + Functional Status No functional status results. Allergies, Adverse Reactions, Alerts + +---------+ + +--------+ + | Allergen | Type | Severity | Reaction | Status | Last Updated | + +---------+ + +--------+ + | Sulfa | Allergy | Unknown | ANAPHYLAXIS, | Active | 05/14/17 | | (Sulfonamide | | | HIVES | | | | | | | | | | | Antibiotics) | | | | | | + +---------+ + +--------+ + | codeine | Allergy | Unknown | | Active | 05/14/17 | + +---------+ + +--------+ + Immunizations No Known History of Immunizations. Vital Signs + + + + | Vital Reading | Collection Date/Time | Result | + + + + | Blood Pressure | 05/14/17 10:36am | 164/116 | + + + + | Blood Pressure Source | 06/17/16 4:24am | Right Arm | + + + + | Temperature | 05/14/17 10:36am | 96.4 F | + + + + | Temperature Source | 05/14/17 10:36am | Temporal | + + + + | Respiratory Rate | 05/14/17 10:36am | 16 | + + + + | Pulse Rate | 05/14/17 10:36am | 88 | + + + + | Bedside Pulse Oximetry | 05/14/17 10:36am | 93 | + + + + | Height | 05/14/17 10:36am | 6 ft 0 in | + + + + | Height | 05/14/17 10:36am | 182.88 cm | + + + + | Weight | 05/14/17 10:36am | 240 lb | + + + + | Weight | 05/14/17 10:36am | 108.86 kg | + + + + | Body Mass Index | 05/14/17 10:36am | 32.5 kg/m2 | + + + + Results [...] | Departed | [facility] | 05/14/17 | 05/14/17 | Madan Adamson | | Emergency | [facility] | 10:28am | 10:59am | D DO | + + + + + + + + + | Encounter Diagnosis | Onset Date | + + + | Epistaxis | | + + + | Right nasal polyps | | + + +"
--- OUTSIDE RECORDS SUMMARY | ~2019-09-25 | XMS | Clinical Summary ---
Demographics + + + | Address | [address] | | | [facility] [facility], [place] [address] | + + + | Home Phone | | + + + | Preferred Language | Unknown | + + + | Marital Status | S | + + + | Pentecostalism Affiliation | Unknown | + + + | Race | White | + + + | Ethnic Group | Not or | + + + Author + + + | Author | [facility] | + + + | Organization | [facility] | + + + | Address | [address] | | | [place] [address] | + + + | Phone | Unavailable | + + + Care Team Providers + +------+ + | Care Fee Clerk Name | Role | Phone | [...] | | tion | | +---------+---------+---------+---------+---------+---------+---------+---------+---------+ | LESION | [id number] | | Active | | David | | Nasal | | | OF | 06 | /29 | | /29 | Chicker | | septum | | | NASAL | (SNOMED | | | | ing [place] | | finding | | | SEPTUM | CT) | | | | | | | | +---------+---------+---------+---------+---------+---------+---------+---------+---------+ | HIP | [id number] | | Active | | Prabhakar | | Hip | | | PAIN, | 2 | / | | / | | | pain | | | LEFT | (SNOMED | | | | Van[place]ro | | | | | | CT) | | | | oy MD | | | | +---------+---------+---------+---------+---------+---------+---------+---------+---------+ | CONTROL | [id number] | | Active | | Marisel | | Drug | | | LED | 03 | / | | / | Rubio | | therapy | | | SUBSTAN | (SNOMED | | | | DRIP MOLDER | | | | | CE | CT) | | | | | | finding | | | AGREEME | | | | | | | | | | NT | | | | | | | | | | SIGNED | | | | | | | | | +---------+---------+---------+---------+---------+---------+---------+---------+---------+ | NASAL | [id number] | | Active | | Marisel | | Mass of | | | MASS | 09 | / | | | Rubio | | nose | | | | (SNOMED | | | | DRIP MOLDER | | | | | | CT) | | | | | | | | +---------+---------+---------+---------+---------+---------+---------+---------+---------+ | COSTOCH | [id number] | | Active | | Marisel | | Costal | | | ONDRITI | 4 | / | | | Rubio | | chondri | | | S, LEFT | (SNOMED | | | | DRIP MOLDER | | tis | | | | CT) | | | | | | | | +---------+---------+---------+---------+---------+---------+---------+---------+---------+ | URI | [id number] | | Active | | Marisel | | Upper | | | | 9 | / | | | Rubio | | respira | | | | (SNOMED | | | | DRIP MOLDER | | tory | | | | CT) | | | | | | infecti | | | | | | | | | | on | | +---------+---------+---------+---------+---------+---------+---------+---------+---------+ | RIB | [id number] | | Active | | Marisel | | Rib | | | PAIN ON | | | | | Rubio | | pain | | | LEFT | (SNOMED | | | | DRIP MOLDER | | | | | SIDE | CT) | | | | | | | | +---------+---------+---------+---------+---------+---------+---------+---------+---------+ | POST- | [id number] | | Active | | Marisel | | Postvir | | | RAL | 04 | / | | | Rubio | | al | | | COUGH | (SNOMED | | | | DRIP MOLDER | | cough | | | SYNDROM | CT) | | | | | | | | | E | | | | | | | | | +---------+---------+---------+---------+---------+---------+---------+---------+---------+ | EPISTAX | [id number] | | Active | | David | | Epistax | | | IS, | 1 | /19 | | /19 | [place]icker | | is | | | RECURRE | (SNOMED | | | | ing [place] | | | | | NT | CT) | | | | | | | | +---------+---------+---------+---------+---------+---------+---------+---------+---------+ | NASAL | [id number] | | Active | | David | | Nasal | | | POLYP | 5 | /19 | | /19 | Chicker | | polyp | | | | (SNOMED | | | | ing [place] | | | | | | CT) | | | | | | | | +---------+---------+---------+---------+---------+---------+---------+---------+---------+ | BRONCHI | [id number] | | Active | | David | | Bronchi | | | TIS | 4 | /19 | | /19 | [place] | | tis | | | | (SNOMED | | | | ing [place] | | | | | | CT) | | | | | | | | +---------+---------+---------+---------+---------+---------+---------+---------+---------+ | ACUTE | [id number] | | Active | | David | | Common | | | NASOPHA | 6 | / | | / | [place]icker | | cold | | | RYNGITI | (SNOMED | | | | ing [place] | | | | | S | CT) | | | | | | | | +---------+---------+---------+---------+---------+---------+---------+---------+---------+ | ADJUSTM | [id number] | | Active | | Mariah | [...] mood | | +---------+---------+---------+---------+---------+---------+---------+---------+---------+ | CHRONIC | [id number] | | Active | | Faina | | Chronic | | | PAIN | | | | | [place] | | pain | | | SYNDROM | (SNOMED | | | | METER REPAIRER | | syndrom | | | E | CT) | | | | | | e | | +---------+---------+---------+---------+---------+---------+---------+---------+---------+ | PAIN | [id number] | | Active | | Faina | | Psychal | | | DISORDE | | /25 | | /25 | [place] | | urban | | | R | (SNOMED | | | | METER REPAIRER | | | | | ASSOCIA | [...] | | | +---------+---------+---------+---------+---------+---------+---------+---------+---------+ | ANEMIA | [id number] | | Active | | Florecita | | Anemia | | | | 00 | /27 | | /27 | Suhr | | | | | | (SNOMED | | | | DRIP MOLDER-C | | | | | | CT) | | | | | | | | +---------+---------+---------+---------+---------+---------+---------+---------+---------+ | APHTHOU | [id number] | | Active | | Luis | | Rosales | | | S ULCER | | / | | / | e Pimentel | | s ulcer | | | OF | (SNOMED | | | | CCMA | | of | | | MOUTH | CT) | | | | | | mouth | | +---------+---------+---------+---------+---------+---------+---------+---------+---------+ | DIFFICU | [id number] | | Active | | Bobby | | Walking | | | LTY IN | 08 | /20 | | /20 | Hersche | | | | | WALKING | (SNOMED | | | | r DO | | disabil | | | | CT) | | | | | | ity | | +---------+---------+---------+---------+---------+---------+---------+---------+---------+ | TOTAL | [id number] | | Active | | Florecita | | Total | | | HIP | 7 | /17 | | /17 | Suhr | | replace | | | ARTHROP | (SNOMED | | | | DRIP MOLDER-C | | ment of | | | [...] , | -CM) | | | | DRIP MOLDER-C | | osteoar | | | LOCALIZ [...] | | | +---------+---------+---------+---------+---------+---------+---------+---------+---------+ | FOOT | [id number] | | Resolve | | Florecita | | Foot | | | PAIN, | 7 | /15 | d | /15 | Suhr | | pain | | | RIGHT | (SNOMED | | | | DRIP MOLDER-C | | | | | | CT) | | | | | | | | +---------+---------+---------+---------+---------+---------+---------+---------+---------+ | RECTAL | [id number] | | Resolve | | Florecita | | Rectal | per | | BLEEDIN | 2 | /15 | d | /15 | Suhr | | hemorrh | Sacred | | G | (SNOMED | | | | DRIP MOLDER-C | | age | Heart | | | CT) | | | | | | | [facility] | | | | | | | | | | nd ER | | | | | | | | | | visit | | | | | | | | | | 05/11/14 | +---------+---------+---------+---------+---------+---------+---------+---------+---------+ | ANAL | [id number] | | Resolve | | Florecita | | Anal | per Dr. | | FISSURE | 6 | / | d | / | Suhr | | fissure | Alexander | | | (SNOMED | | | | DRIP MOLDER-C | | | [place] | | | CT) | | | | | | | MD | +---------+---------+---------+---------+---------+---------+---------+---------+---------+ | NEW | [id number] | | Resolve | | Florecita | | Procedu | | | PATIENT | 03 | /24 | d | /24 | Suhr | | re | | | | (SNOMED | | | | DRIP MOLDER-C | | carried | | | CONSULT | CT) | | | | | | out on | | | ATION | | | | | | | | | | | | | | | | | subject | | +---------+---------+---------+---------+---------+---------+---------+---------+---------+ | AVASCUL | [id number] | | Active | | Prabhakar | | Avascul | | | AR | 03 | /28 | | /28 | | | ar [...] femur | | +---------+---------+---------+---------+---------+---------+---------+---------+---------+ | URI | [id number] | | Inactiv | | Loraine | [...] on | | +---------+---------+---------+---------+---------+---------+---------+---------+---------+ | HYPERTE | [id number] | | Active | | Rudy | | Hyperte | | | NSION | 3 | /24 | | /24 | Monteir | | nsive | | | | (SNOMED | | | | o MD | | disorde | | | | CT) | | | | | | r | | +---------+---------+---------+---------+---------+---------+---------+---------+---------+ | ELEVATE | [id number] | | Active | | Rudy | | Hypergl | | | D BLOOD | 7 | | | | Monteir | | ycemia | | | SUGAR | (SNOMED | | | | o MD | | | | | | CT) | | | | | | | | +---------+---------+---------+---------+---------+---------+---------+---------+---------+ | NEW | [id number] | | Removed | | Rudy | [...] subject | | +---------+---------+---------+---------+---------+---------+---------+---------+---------+ | SCREENI | [id number] | | Resolve | | Rudy | | Alcohol | | | NG FOR | 01 | /22 | d | /22 | Monteir | | | | | ALCOHOL | (SNOMED | | | | o MD | | consump | | | ISM | CT) | | | | | | tion | | | | | | | | | | screeni | | | | | | | | | | ng | | +---------+---------+---------+---------+---------+---------+---------+---------+---------+ | SCREENI | [id number] | | Resolve | | Rudy | [...] ng | | +---------+---------+---------+---------+---------+---------+---------+---------+---------+ | NICOTIN | 7058514 | | Active | | Prabhakar | | Nicotin | | | E | 8 | / | | /08 | | | e | | | ADDICTI | (SNOMED | | | | VanAnro | | depende | | | ON | CT) | | | | oy MD | | nce | | +---------+---------+---------+---------+---------+---------+---------+---------+---------+ | ASEPTIC | [id number] | | Inactiv | | Ann | | Aseptic | | | | 05 | / | e | | Yarbrou | | [...] hip | | +---------+---------+---------+---------+---------+---------+---------+---------+---------+ | URI | 1144677 | | Inactiv | | Phan | | Upper | | | | 9 | | e | | Middlek | | respira | | | | (SNOMED | | | | auff | | tory | | | | CT) | | | | DRIP MOLDER | | infecti | | | | | | | | | | on | | +---------+---------+---------+---------+---------+---------+---------+---------+---------+ | SORE | 4982796 | | Inactiv | | Phan | | Pain in | | | THROAT | | | e | / | Middlek | | throat | | | | (SNOMED | | | | auff | | | | | | CT) | | | | DRIP MOLDER | | | | +---------+---------+---------+---------+---------+---------+---------+---------+---------+ | OTHER | 3532041 | | Active | | Prabhakar | [...] | | | +---------+---------+---------+---------+---------+---------+---------+---------+---------+ | OPIOID | 8014633 | | Active | | Phan | | Nondepe | | | ABUSE, | 05 | / | | / | Middlek | | ndent | | | CONTINU | (SNOMED | | | | auff | | opioid | | | OUS | CT) | | | | DRIP MOLDER | | abuse, | | | | | | | | | | continu | | | | | | | | | | ous | | +---------+---------+---------+---------+---------+---------+---------+---------+---------+ | HIP | 8368469 | | Active | | Phan | | Hip | | | PAIN, | 2 | /28 | | /28 | Middlek | | pain | | | LEFT | (SNOMED | | | | auff | | | | | | CT) | | | | DRIP MOLDER | | | | +---------+---------+---------+---------+---------+---------+---------+---------+---------+ | UPPER | [id number] | | Inactiv | | Malachi Levin [...] on | | +---------+---------+---------+---------+---------+---------+---------+---------+---------+ | BRACHIA | [id number] | | Inactiv | | Malachi Levin [...] | | | +---------+---------+---------+---------+---------+---------+---------+---------+---------+ | RIB | 4357875 | | Inactiv | | Malachi K | | Rib | | | PAIN | | | e | | Dye | | pain | | | | (SNOMED | | | | ACNP | | | | | | CT) | | | | | | | | +---------+---------+---------+---------+---------+---------+---------+---------+---------+ | LESION | 8911085 | | Active | | Clementina | | Plantar | | | OF | 04 | | | | | | nerve [...] | | | +---------+---------+---------+---------+---------+---------+---------+---------+---------+ | ANAL | 4372708 | | Removed | | Karissa | | Anal | per DrJason | | FISSURE | 6 | / | | / | Sea | | fissure | Alexander | | | (SNOMED | | | | RN | | | [place] | | | CT) | | | | | | | MD | +---------+---------+---------+---------+---------+---------+---------+---------+---------+ | RECTAL | 8688251 | | Removed | | Rodrigo | | Rectal | per | | BLEEDIN | 2 | / | | | Jatin | | hemorrh [...] | 05/11/14 | +---------+---------+---------+---------+---------+---------+---------+---------+---------+ | SCREENI | 8231056 | | Removed | | Juan | | Alcohol | | | NG FOR | | / | | | Vishal | | | | | ALCOHOL | (SNOMED | | | | s DO | | consump | | | ISM | CT) | | | | | | tion | | | | | | | | | | screeni | | | | | | | | | | ng | | +---------+---------+---------+---------+---------+---------+---------+---------+---------+ | SCREENI | 7946519 | | Removed | | Andriy | | Alcohol | | | NG FOR | | / | | | Padovic | | | | | ALCOHOL | (SNOMED | | | | h DRIP MOLDER | | consump | | | ISM | CT) | | | | | | tion | | | | | | | | | | screeni | | | | | | | | | | ng | | +---------+---------+---------+---------+---------+---------+---------+---------+---------+ | FOOT | 9897474 | | Removed | | Skye | | Foot | | | PAIN, | 7 | /15 | | /15 | Epifanio | | pain | | | RIGHT | (SNOMED | | | | DRIP MOLDER | | | | | | CT) [...] | 1 | | | BISACODYL | [id number] | Florecita | | 10 MG | suppositor | | | | 1 | Suhr DRIP MOLDER-C | | SUPP | y QHS PRN [...] | | | | | | | DRIP MOLDER | + + + + + + + + | MIRALAX | 17grams | | | POLYETHYLE | 0899927568 | Melvina | | POWD | mixed in | | | NE GLYCOL | 2 | Margarito CCMA | | | 6-8ounces | | | 3350 | | | | | of fluid | | | | | | | | po daily | | | | | | + + + + + + + + | AMBERDERM | Apply prn | | | BALSAM | [id number] | Bobby | | 650-72.5 | to lower | | | JOSEPH-GEOVANY | 3 | [place] | | MG/0.82ML | lip for | [...] 1 lozenge | | | BENZOCAINE | [id number] | Karma | | SORE | every 2 | | | -MENTHOL | 0 | Ber[place]ice [place] | | THROAT | hours as [...] cap BID | | | DOCUSATE | [id number] | Florecita | | MG CAPS | | | | SODIUM | 0 | Suhr DRIP MOLDER-C | + + + + + + + + | [facility] LYSINE | take 1 tab | | | LYSINE | 5123705600 | David | | 1000 MG | [...] tab BID | | | CYCLOBENZA | [id number] | Florecita | | YESSY HCL | PRN muscle | | | YESSY HCL | 1 | Suhr DRIP MOLDER-C | | 10 MG TABS | pain | | | | | | + + + + + + + + | NORCO | 1 every 8 | | | HYDROCODON | 6582107540 | Rudy | | 5-325 MG | hours as | | | E-ACETAMIN | 1 | Yaquelin | | TABS | needed | | | OPHEN | | MD | + + + + + + + + | NORCO | 1 tab po | | | HYDROCODON | 1075183634 | Karma | | 5-325 MG | QD | | | E-ACETAMIN | 1 | Berenice [place] | | TABS | | | | OPHEN | | | + + + + + + + + | PSEUDOEPHE | 1-2 | | | PSEUDOEPHE | 4251689136 | Marisel | | DRINE HCL | tablets | | | DRINE HCL | 2 | Rubio GUPTAP | | 30 MG TABS | every [...] 1 by | | | TRAMADOL | 0852643344 | Marisel | | HCL 50 MG | mouth | | | HCL | 1 | Rubio DRIP MOLDER | | TABS | every 6 | | | | | | | | hours | | | | | | + + + + + + + + | OXYCODONE | 3-4 per | | | OXYCODONE | 0059495826 | Karma | | HCL 10 MG | day | | | HCL | 1 | Berenice CONRAD | | TABS | | | | | | | + + + + + + + + | OXYCODONE | 1 tab q 4 | | | OXYCODONE | 4082754350 | Karma | | HCL 15 MG | hrs PRN | | | HCL | 1 | Berenice [place] | | TABS | pain | | | | | | + + + + + + + + | HYDROCODON | Take 1 tab | | | HYDROCODON | 8702052111 | Melvina | | E-ACETAMIN | po [...] 1 tab | | | TRAMADOL | 2332754734 | Karma | | HCL 50 MG [...] 1 tab | | | OXYCODONE- | 3097894376 | Phan | | ACETAMINOP | by mouth | | | ACETAMINOP | 5 | Abeluf | | HEN 5-325 | three | | | HEN | | f DRIP MOLDER | | MG TABS | times per [...] Take 1 | | | AMITRIPTYL | 0039367391 | Marisel | | MG TABS | tab po QHS | | | INE HCL | 0 | Rubio GUPTAP | + + + + + + + + | GUAIFENESI | take 1 to | | | GUAIFENESI | 5735585416 | Marisel | | N 200 MG | 2 tablets | | | N | 0 | Rubio DRIP MOLDER | | TABS | by mouth | [...] Inhale 2 | | | ALBUTEROL | 8467138244 | Malachi Levin | | 108 (90 [...] COMPRESSIO | | David | | N TIA | the | | | N HOSGary | | Chick[place] | | MEN'S | morning | | | MEN'S | | MA | | | and take | | | | | | | | off at | | | | | | | | bedtime | | | | | | + + + + + + + + | NORCO | 4-6 per | | | HYDROCODON | 1423641138 | Prabhakar | | 5-325 MG | day | | | E-ACETAMIN | 1 | VanAnrooy | | TABS | | | | OPHEN | | MD | + + + + + + + + | COUMADIN 4 | 1 tab | | | WARFARIN | 6097852155 | David | | MG TABS | [...] Apply prn | | | BALSAM | 7157336867 | David | | 650-72.5 | to [...] | 17grams | | | POLYETHYLE | 6626544673 | David | | POWD | mixed [...] 1 tab | | | WARFARIN | 6277562701 | Florecita | | MG TABS | daily | | | SODIUM | 0 | Suhr DRIP MOLDER-C | + + + + + + + + | OXYCODONE | 3-4 per | | | OXYCODONE | 8928973007 | Rudy | | HCL 10 MG | day | | | HCL | 1 | Yaquelin | | TABS | | | | | | MD | + + + + + + + + | TESSALON | Take three | | | BENZONATAT | 4534747563 | Karma | | PERLES 100 | [...] | three | | | IBUPROFEN | 0704520800 | Prabhakar | | 600 MG | times per | | | | 0 | Uzma | | TABS | day | | | | | MD | + + + + + + + + | LISINOPRIL | 1 tab one | | | LISINOPRIL | 6545140541 | David | | 20 MG | time per | | | | 1 | Chick[place] | | TABS | day | | | | | MA | + + + + + + + + | [facility] MILK | prn | | | MAGNESIUM | 3360825571 | David | | OF | constipati [...] cap BID | | | DOCUSATE | [id number] | David | | MG CAPS | | | | SODIUM | 0 | [place] | | | | | | | | MA | + + + + + + + + | TYLENOL 8 | 1 tablet | | | ACETAMINOP | 0038876481 | Bobby | | HOUR | every 4 | | | HEN | 1 | [place] | | ARTHRITIS | hours as | [...] TAB Q6 | | | TRAMADOL | 6687050223 | Rudy | | HCL 50 MG | HRS PRN | | | HCL | 1 | Yaquelin | | TABS | PAIN | | | | | MD | + + + + + + + + | CLINDAMYCI | 1 tab by | | | CLINDAMYCI | 7362882629 | Tommy | | N HCL 150 [...] Inhale 2 | | | ALBUTEROL | 7948550075 | Phan | | 108 (90 | puffs | | | SULFATE | 2 | Middlekauf | | Base) | every 4 | | | | | f DRIP MOLDER | | MCG/ACT | hours as | [...] tab q | | | OXYCODONE- | 3111376693 | Florecita | | 7.5-325 MG | 4 hrs for | | | ACETAMINOP | 0 | Suhr DRIP MOLDER-C | | TABS | pain, hold | [...] | | | AGREEMENT | | Vanessa ODOMMA | | D RATHER | on | | | D RATHER | | | | | 1.12.15 | | | | | | | | signed | | | | | | | | 1.2.15 | | | | | | + + + + + + + + | HYDROCODON | 1 po bid | | | HYDROCODON | 2659971426 | [place] | | E-ACETAMIN | prn severe | | | E-ACETAMIN | 1 | [facility] | | OPHEN | pain | | | OPHEN | | | | 5-325 MG | | | | | | | | TABS | | | | | | | + + + + + + + + | NORCO | 4-6 per | | | HYDROCODON | 2509179448 | Karma | | 5-325 MG | day | | | E-ACETAMIN | 1 | Berenice [place] | | TABS | | | | OPHEN | | | + + + + + + + + | TRAMADOL | 1-2 TAB | | | TRAMADOL | 6132602194 | David | | HCL 50 MG | BID PRN | | | HCL | 1 | [place] | | TABS | PAIN | | | | | MA | + + + + + + + + | GUAIFENESI | 1 tab | | | GUAIFENESI | 7558076574 | Karma | | N 400 MG [...] 2tabs po | | | VARENICLIN | 7036260792 | Ruyd | | MG TABS | qd | | | E TARTRATE | 6 | Yaquelin | | | | | | | | MD | + + + + + + + + | BISAC-EVAC | 1 | | | BISACODYL | 3986376075 | David | | 10 MG | [...] 1 tab | | | PSEUDOEPHE | 5941309080 | Phan | | ARVIND HCL | by mouth | | | ARVIND HCL | 2 | Middlekauf | | 30 MG TABS | four times | | | | | f DRIP MOLDER | | | per day | | [...] 1tab by | | | HYDROCODON | 5971261979 | David | | 7.5-325 MG | [...] Take 1 | | | DOXYCYCLIN | 9217484989 | Malachi K | | E HYCLATE [...] 1 tablet | | | MELOXICAM | 2864080281 | Phan | | MG TABS | by mouth | | | | 1 | Middlekauf | | | daily. | | | | | f DRIP MOLDER | | | Must last | | | | | | | | 30 days. | | | | | | + + + + + + + + | CLINDAMYCI | 1 tab by | | | CLINDAMYCI | 3407352705 | Malachi K | | N HCL [...] | prn | | | MAGNESIUM | 4598722011 | Melvina | | OF | constipati [...] By mouth | | | IBUPROFEN | 2760098204 | Andriy | | 200 MG | 3 times a | | | | 1 | Padovich | | TABS | day | | | | | DRIP MOLDER | + + + + + + + + | CHANTIX 1 | 1 tab two | | | VARENICLIN | 0351601031 | Karma | | MG TABS | times per | | | E TARTRATE | 6 | Berenice [place] | | | day | | | | | | + + + + + + + + | HYDROCODON | Take 1 tab | | | HYDROCODON | 3516792034 | Karma | | E-ACETAMIN | po | | | E-ACETAMIN | 1 | Berenice [place] | | OPHEN | BID/PRN | | | OPHEN | | | | 7.5-325 MG | | | | | | | | TABS | | | | | | | + + + + + + + + | CYCLOBENZA | 1 tab BID | | | CYCLOBENZA | 7161715690 | David | | YESSY HCL | PRN muscle | | | YESSY HCL | 1 | [place] | | 10 MG TABS | pain | | | | | MA | + + + + + + + + | IBUPROFEN | three | | | IBUPROFEN | 7930800148 | Rudy | | 600 MG | times per | | | | 0 | Yaquelin | | TABS | day | | | | | MD | + + + + + + + + | PERCOCET | take 1 by | | | OXYCODONE- | 7761791597 | Marisel | | 5-325 MG | mouth two | | | ACETAMINOP | 0 | Rubio DRIP MOLDER | | TABS | times per | [...] | follow | | | VARENICLIN | 4277476824 | Marisel | | STARTING | instructio | | | E TARTRATE | 3 | Rubio DRIP MOLDER | | MONTH LIZA | ns on [...] 1 by | | | TRAMADOL | 1376591501 | Marisel | | HCL 50 MG | mouth | | | HCL | 1 | Rubio DRIP MOLDER | | TABS | every 6 | | | | | | | | hours | | | | | | + + + + + + + + | PSEUDOEPHE | 1-2 | | | PSEUDOEPHE | 3641301123 | Marisel | | DRINE HCL | tablets | | | DRINE HCL | 2 | Rubio DRIP MOLDER | | 30 MG TABS | every [...] | 1-2 | | | PSEUDOEPHE | 8704790509 | Marisel | | DRINE HCL | tablets | | | DRINE HCL | 2 | Rubio DRIP MOLDER | | 30 MG TABS | every [...] 1 to | | | GUAIFENESI | 7524281629 | Marisel | | N 200 MG | 2 tablets | | | N | 0 | Rubio DRIP MOLDER | | TABS | by mouth | [...] 1 spray | | | FLUTICASON | 2850124868 | Marisel | | ALLERGY | eash | | | E | 2 | Rubio DRIP MOLDER | | RELIEF 50 | nostril | | | PROPIONATE | | | | MCG/ACT | once a day | | | | | | | SUSP | | | | | | | + + + + + + + + | LISINOPRIL | 1 tab one | | | LISINOPRIL | 3741658121 | Rudy | | 20 MG | time per | | | | 1 | Yaquelin | | TABS | day | | | | | MD | + + + + + + + + | CHANTIX 1 | take 1tab | | | VARENICLIN | 0394519277 | Rudy | | MG TABS | po daily | | | E TARTRATE | 6 | Yaquelin | | | | | | | | MD | + + + + + + + + | ELAVIL 25 | Take 1 | | | AMITRIPTYL | 6112119998 | Rudy | | MG TABS | tab po QHS | | | INE HCL | 0 | Yaquelin | | | | | | | | MD | + + + + + + + + | TRAMADOL | 1-2 TAB | | | TRAMADOL | 8050527057 | Rudy | | HCL 50 MG | BID PRN | | | HCL | 1 | Yaquelin | | TABS | PAIN | | | | | MD | + + + + + + + + | TRAMADOL | 1 TAB BID | | | TRAMADOL | [id number] | Rudy | | HCL 50 MG | PRN PAIN | | | HCL | 1 | Yaquelin | | TABS | | | | | | MD | + + + + + + + + | NORCO | 1tab by | | | HYDROCODON | [id number] | Rudy | | 7.5-325 MG | [...] TAB Q6 | | | TRAMADOL | [id number] | Prabhakar | | HCL 50 MG | HRS PRN | | | HCL | 1 | VanAnrooy | | TABS | PAIN | | | | | MD | + + + + + + + + | NORCO | 1tab po | | | HYDROCODON | [id number] | Rudy | | 7.5-325 MG | [...] tab po | | | HYDROCODON | [id number] | Rudy | | 5-325 MG | QD | | | E-ACETAMIN | 1 | Yaquelin | | TABS | | | | OPHEN | | MD | + + + + + + + + | TRAMADOL | take 1 tab | | | TRAMADOL | [id number] | Rudy | | HCL 50 MG | nightly | | | HCL | 1 | Yaquelin | | TABS | | | | | | MD | + + + + + + + + | NORCO | 1 every 8 | | | HYDROCODON | [id number] | Prabhakar | | 5-325 MG | hours as | | | E-ACETAMIN | 1 | Uzma | | TABS | needed | | | OPHEN | | MD | + + + + + + + + | OXYCODONE | 1 tab q 4 | | | OXYCODONE | [id number] | Florecita | | HCL 15 MG | hrs PRN | | | HCL | 1 | Suhr DRIP MOLDER-C | | TABS | pain | | | | | | + + + + + + + + | [facility] LYSINE | take 1 tab | | | LYSINE | [id number] | Rudy | | 1000 MG | [...] tab q | | | OXYCODONE- | [id number] | Florecita | | 7.5-325 MG | 4 hrs for | | | ACETAMINOP | 0 | Suhr DRIP MOLDER-C | | TABS | pain, hold | | | HEN | | | | | if | | | | | | | | somnolent | | | | | | | | or asleep. | | | | | | + + + + + + + + | PERCOCET | 1-2 tab q | | | OXYCODONE- | [id number] | Florecita | | 7.5-325 MG | 4 hrs PRN | | | ACETAMINOP | 0 | Suhr DRIP MOLDER-C | | TABS | pain, | | | HEN | | | | | dispense | | | | | | | | #84 | | | | | | + + + + + + + + | TESSALON | Take three | | | BENZONATAT | [id number] | Loraine | | PERLLOUISA 100 | [...] 1tab po | | | VARENICLIN | [id number] | Rudy | | MG TABS | bid | | | E TARTRATE | 6 | Yaquelin | | | | | | | | MD | + + + + + + + + | HYDROCODON | Take 1 tab | | | HYDROCODON | [id number] | Rudy | | E-ACETAMIN | po [...] po qd | | | LISINOPRIL | [id number] | Rudy | | 20 MG | | | | | 1 | Yaquelin | | TABS | | | | | | MD | + + + + + + + + | TRAMADOL | 1 TAB Q6 | | | TRAMADOL | [id number] | Prabhakar | | HCL 50 MG | HRS PRN | | | HCL | 1 | VanAnrooy | | TABS | PAIN | | | | | MD | + + + + + + + + | CEPACOL | 1 lozenge | | | BENZOCAINE | [id number] | Phan | | SORE | every 2 | | | -MENTHOL | 0 | Middlekauf | | THROAT | hours as | | | | | f DRIP MOLDER | | 10-2.1 MG | needed for | | | | | | | LOZG | sore | | | | | | | | throat | | | | | | + + + + + + + + | GUAIFENESI | 1 tab | | | GUAIFENESI | [id number] | Phan | | N 400 MG | every 4 | | | N | 0 | [place] | | TABS | hours as | | | | | f DRIP MOLDER | | | needed for | | | | | | | | | | | | | | | | cough/yaw | | | | | | | | estion | | | | | | + + + + + + + + | PSEUDOEPHE | Take 1 tab | | | PSEUDOEPHE | [id number] | Malachi Levin | | INE HCL | by mouth [...] Take 3 | | | PREDNISONE | [id number] | Malachi Levin | | 20 MG [...] 1 tab | | | OXYCODONE- | [id number] | Malachi Levin | | ACETAMINOP | [...] Take 1 | | | GABAPENTIN | [id number] | Malachi Levin | | 300 MG [...] 1 tab | | | CYCLOBENZA | [id number] | Malachi Levin | | YESSY HCL [...] po bid | | | HYDROCODON | [id number] | Tommy | | E-ACETAMIN | prn [...] 1 tablet | | | MELOXICAM | [id number] | Jovany | | MG TABS | [...] | | | | | | | DRIP MOLDER | + + + + + + [...] | | | | | | | DRIP MOLDER | +---------+ + + + + + | CODEINE | Itch | | Critical | No Longer | Skye | | | | | | Active | Epifanio DRIP MOLDER | +---------+ + + + + + | SULFA | Break out in | | Critical | | Skye | | | hives | | | | Epifanio GUPTAP | +---------+ + + + + + Results +------+------+-------+------+-------+------+ + | Date | Name | Value | Unit | Range | Flag | Descriptio | | | | | | | | n | +------+------+-------+------+-------+------+ + + + | Office Visit: Ortho f/u Irineo freitas | + + + + + +---+---+---+ [...] CPHS | + + + +-------+---+---+ + + [...] +-------+---+---+ + + + | Rx Refill: Antonio Request for CHANTIX 1MG TABS | + + + +--------+ +---+---+---+ + | | ESM_RR | [id number] | | | B | e-scripts | [...] | | | | | | | [id number]` | | | | | | | | [phone] | | | | | | | [...] | | | Dietary | | | [employer] | | | | | management | [...] | | | Dietary | | | [employer] | | | | | management | [...] Erythro Sed RateClarisa | + + + + + + [...] + + | Office Visit: Ortho [facility] 06/14/16 | + + + +--------+---------+---+---+---+ [...] + + +---+ + + + | Half-Way Facility: Nursing Facility Care / Discharge anticipated [...] + + +---+ + + + | Half-Way Facility: Nursing Facility Care / Initial Encounter [...] + + + + + +---+ + Plan of Care + + + + | Type | Date | Detail | + + + + | Appointment | 03:00 PM | Marisel Bergeron DRIP MOLDER, [address] | | | | [facility] [address], | | | | [place], [address], | | | | | + + + + | Referral | | ENT Consult | | | | [facility] Phone #, [phone] | | | | [facility], | | | | [place], [address] | | | | | + + + + | Referral | | Podiatry Consult | | | | GUILLERMO Haley, | | | | [address], | | | | [place], [address] | | | | | + + [...] + | Pending order | | MR Hip-WO Con-Lt | + + + + | Pending order | | XR Foot 2V-Rt | + + + + | Pending order | | XR Foot 2V-Rt | + + + + Procedures + + + + + | Code | Procedure Name | Date | Entry Date | + + + + + | CPT-42946 | XR Hip W/Pelvis | | | | | 2-3V-Lt | | | + + + + + | CPT-82960 | Urine Toxicology | | | | | Screen, Multiple | | | | | Drug Classes by | | | | | Direct Optical | | | | | Observation | | | + + + + + | [id number] | Overweight | | | + + + + + | [id number] | Overweight | | | + + + + + | CPT-J1885 | Toradol 15mg | | | + + + + + | CPT-17810 | Theraputic | | | | | Injection (IM/SubQ) | | | + + + + + | [id number] | Overweight | | | + + + + + | CPT-99494 | Theraputic | | | | | Injection (IM/SubQ) | | | + + + + + | CPT-J1885 | Toradol 15mg | | | + + + + + | CPT-03406 | Urine Toxicology | | | | | Screen, Multiple | | | | | Drug Classes by | | | | | Direct Optical | | | | | Observation | | | + + + + + | CPT-18354 | [address] Individual | | | | | Therapy (53-112) | | | | | No POS Phone | | | + + + + + | CPT-27213 | XR Hip W/Pelvis | | | | | 2-3V-Lt | | | + + + + + | CPT-88109 | Theraputic | | | | | Injection (IM/SubQ) | | | + + + + + | CPT-J1885 | Toradol 15mg | | | + + + + + | CPT-45690 | Urine Toxicology | | | | | Screen, Multiple | | | | | Drug Classes by | | | | | Direct Optical | | | | | Observation | | | + + + + + | CPT-93302 | Theraputic | | | | | Injection (IM/SubQ) | | | + + + + + | CPT-J1885 | Toradol 15mg | | | + + + + + | CPT-39253 | Theraputic | | | | | Injection (IM/SubQ) | | | + + + + + | CPT-J1885 | Toradol 15mg | | | + + + + + | CPT-61025 | Theraputic | | | | | Injection (IM/SubQ) | | | + + + + + | CPT-J1885 | Toradol 15mg | | | + + + + + | CPT-91969 | XR Hip W/Pelvis | | | | | 2-3V-Lt | | | + + + + + | CBC AUTO 74784 | CBC w/ Auto Diff | | | + + + + + | CPT-23518 | XR Hip W/Pelvis | | | | | 2-3V-Lt | | | + + + + + | CBC AUTO 45090 | CBC w/ Auto Diff | | | + + + + + | M NOS MRSA 44980 | Nose Culture, MRSA | | | | | Only | | | + + + + + | CHEM 8 81774 | Basic Metabolic | | | | | Panel | | | + + + + + | CPT-21348 | Health Risk | | | | | Assessment | | | + + + + + | GLYCO HGB 02245 | Glyco Hemoglobin, | | | | | A1C | | | + + + + + | CPT-91793 | Health Risk | | | | | Assessment | | | + + + + + | CPT-29780 | Health Risk | | | | | Assessment | | | + + + + + | U NICOTINE 47060 | Cotinine | | | + + + + + | 30940 | MR Hip-WO Con-Lt | | | + + + + + | CPT-48713 | XR Hip W/Pelvis | | | | | 2-3V-Lt | | | + + + + + | CPT- 19063 | Administration | | | | | (87655) | | | + + + + + | CPT-J1885 | Toradol Inj. 60mg | | | + + + + + | CPT-56323 | Urine Tox, multiple | | | | | drug classes | | | + + + + + | 23402 | XR Foot 2V-Rt | | | + + + + + | [id number] | [Recorded for CQM] | | | | | Pedal pulse taking | | | | | (procedure) | | | + + + + + | [id number] | [Recorded for CQM] | | | | | Documentation of | | | | | current medications | | | | | (procedure) | | | + + + + + | [id number] | [Recorded for CQM] | | | | | Health-related | | | | | behavior | | | + + + + + | [id number] | MU Generic Patient | | | | | Encounter Service | | | | | (from patch) | | | + + + + + | [id number] | [Recorded for CQM] | | | | | Pedal pulse taking | | | | | (procedure) | | | + + + + + | [id number] | [Recorded for CQM] | | | | | Documentation of | | | | | current medications | | | | | (procedure) | | | + + + + + | [id number] | [Recorded for CQM] | | | | | Drug or Medication | | | + + + + + | [id number] | [Recorded for CQM] | | | | | Details of drug | | | | | misuse behavior | | | + + + + + | [id number] | [Recorded for CQM] | | | | | Never smoker | | | + + + + + | [id number] | [Recorded for CQM] | | | | | Never smoked | | | | | tobacco (finding) | | | + + + + + | 877312423 | [Recorded for CQM] | | | | | Tobacco use and | | | | | exposure | | | + + + + + | 244926123 | [Recorded for CQM] | | | | | Alcohol intake | | | + + + + + | 000554986 | [Recorded for CQM] | | | | | Allergy | | | + + + + + | 197236737 | [Recorded for CQM] | | | | | Alcohol intake | | | + + + + + | 380556695 | [Recorded for CQM] | | | | | Tobacco use and | | | | | exposure | | | + + + + + | 295217506 | [Recorded for CQM] | | | | | Details of drug | | | | | misuse behavior | | | + + + + + | 611317745 | [Recorded for CQM] | | | | | Drug or Medication | | | + + + + + | [id number] | [Recorded for CQM] | | | | | Current Light | | | | | tobacco smoker | | | + + + + + | [id number] | [Recorded for CQM] | | | | | Light tobacco | | | | | smoker (finding) | | | + + + + + | [id number] | [Recorded for CQM] | | | | | Documentation of | | | | | current medications | | | | | (procedure) | | | + + + + + | [id number] | [Recorded for CQM] | | | | | Pedal pulse taking | | | | | (procedure) | | | + + + + + | 65934 | XR Foot 2V-Rt | | | [...]
--- OUTSIDE RECORDS SUMMARY | ~2019-09-25 | XMS | Clinical Summary ---
Demographics + + + | Address | [address] | | | [place] [address] | + + + | Home Phone | ;ext=[phone] | + + + | Preferred Language | Unknown | + + + | Marital Status | U | + + + | Anabaptist Affiliation | Unknown | + + + | Race | White | + + + | Ethnic Group | Not or | + + + Author + + + | Author | [facility] | + + + | Organization | [facility] | + + + | Address | [address] | | | [place] [address] | + + + | Phone | Unavailable | + + + Care Team Providers + +------+ + | Care Chainstitch Elastic Attacher Name | Role | Phone | + [...] | | tion | | +---------+---------+---------+---------+---------+---------+---------+---------+---------+ | RECTAL | [id number] | | Active | | Marisel | | Rectal | | | BLEEDIN | 2 | | | | Rubio | | hemorrh | | | G | (SNOMED | | | | CONTINUITY EDITOR | | age | | | | CT) | | | | | | | | +---------+---------+---------+---------+---------+---------+---------+---------+---------+ | ANAL | [id number] | | Active | | Marielle | | Anal | per | | FISSURE | 6 | | | / | Kobe | | fissure | Alexander | | | (SNOMED | | | | CCMA | | | [place] | | | CT) | | | | | | | MD | +---------+---------+---------+---------+---------+---------+---------+---------+---------+ | LESION | [id number] | | Active | | David | | Nasal | | | OF | 06 | / | | /29 | Chicker | | septum | | | NASAL | (SNOMED | | | | ing [place] | | finding | | | SEPTUM | CT) | | | | | | | | +---------+---------+---------+---------+---------+---------+---------+---------+---------+ | HIP | [id number] | | Active | | Prabhakar | | Hip | | | PAIN, | 2 | /26 | | /26 | | | pain | | | LEFT | (SNOMED | | | | VanAnro | | | | | | CT) | | | | oy MD | | | | +---------+---------+---------+---------+---------+---------+---------+---------+---------+ | CONTROL | [id number] | | Active | | Marisel | | Drug | | | LED | 03 | / | | / | Rubio | | therapy | | | SUBSTAN | (SNOMED | | | | CONTINUITY EDITOR | | | | | CE | CT) | | | | | | finding | | | AGREEME | | | | | | | | | | NT | | | | | | | | | | SIGNED | | | | | | | | | +---------+---------+---------+---------+---------+---------+---------+---------+---------+ | NASAL | [id number] | | Active | | Marisel | | Mass of | | | MASS | 09 | /19 | | /19 | Rubio | | nose | | | | (SNOMED | | | | CONTINUITY EDITOR | | | | | | CT) | | | | | | | | +---------+---------+---------+---------+---------+---------+---------+---------+---------+ | COSTOCH | [id number] | | Active | | Marisel | | Costal | | | ONDRITI | 4 | / | | / | Rubio | | chondri | | | S, LEFT | (SNOMED | | | | CONTINUITY EDITOR | | tis | | | | CT) | | | | | | | | +---------+---------+---------+---------+---------+---------+---------+---------+---------+ | URI | [id number] | | Active | | Marisel | | Upper | | | | 9 | / | | / | Rubio | | respira | | | | (SNOMED | | | | CONTINUITY EDITOR | | tory | | | | CT) | | | | | | infecti | | | | | | | | | | on | | +---------+---------+---------+---------+---------+---------+---------+---------+---------+ | RIB | [id number] | | Active | | Marisel | | Rib | | | PAIN ON | 02 | / | | / | Rubio | | pain | | | LEFT | (SNOMED | | | | CONTINUITY EDITOR | | | | | SIDE | CT) | | | | | | | | +---------+---------+---------+---------+---------+---------+---------+---------+---------+ | POST- | [id number] | | Active | | Marisel | | Postvir | | | RAL | 04 | / | | / | Rubio | | al | | | COUGH | (SNOMED | | | | CONTINUITY EDITOR | | cough | | | SYNDROM | CT) | | | | | | | | | E | | | | | | | | | +---------+---------+---------+---------+---------+---------+---------+---------+---------+ | EPISTAX | [id number] | | Active | | David | | Epistax | | | IS, | 1 | /19 | | / | Chicker | | is | | | RECURRE | (SNOMED | | | | ing [place] | | | | | NT | CT) | | | | | | | | +---------+---------+---------+---------+---------+---------+---------+---------+---------+ | NASAL | [id number] | | Active | | David | | Nasal | | | POLYP | 5 | /19 | | /19 | Chicker | | polyp | | | | (SNOMED | | | | ing [place] | | | | | | CT) | | | | | | | | +---------+---------+---------+---------+---------+---------+---------+---------+---------+ | BRONCHI | [id number] | | Active | | David | | Bronchi | | | TIS | 4 | /19 | | /19 | Chicker | | tis | | | | (SNOMED | | | | ing [place] | | | | | | CT) | | | | | | | | +---------+---------+---------+---------+---------+---------+---------+---------+---------+ | ACUTE | [id number] | | Active | | David | | Common | | | NASOPHA | 6 | /19 | | /19 | Chicker | | cold | | | RYNGITI | (SNOMED | | | | ing [place] | | | | | S | CT) | | | | | | | | +---------+---------+---------+---------+---------+---------+---------+---------+---------+ | ADJUSTM | [id number] | | Active | | Mariah | | Adjustm | | | ENT | 0 | /24 | | /26 | Victor | | ent | | | DISORDE | (SNOMED | | | | CSWA | | disorde | | | R WITH | CT) | | | | | | r with | | | ANXIETY | | | | | | | anxious | | | | | | | | | | mood | | +---------+---------+---------+---------+---------+---------+---------+---------+---------+ | CHRONIC | [id number] | | Active | | Faina | | Chronic | | | PAIN | 06 | / | | / | [place] | | pain | | | SYNDROM | (SNOMED | | | | RETAIL ROUTE SUPERVISOR | | syndrom | | | E | CT) | | | | | | e | | +---------+---------+---------+---------+---------+---------+---------+---------+---------+ | PAIN | 7464928 | | Active | | Faina | | Psychal | | | DISORDE | | /25 | | / | [place] | | urban | | | R | (SNOMED | | | | RETAIL ROUTE SUPERVISOR | | | | | ASSOCIA [...] | | | +---------+---------+---------+---------+---------+---------+---------+---------+---------+ | ANEMIA | [id number] | | Active | | Florecita | | Anemia | | | | 00 | | | | Suhr | | | | | | (SNOMED | | | | CONTINUITY EDITOR-C | | | | | | CT) | | | | | | | | +---------+---------+---------+---------+---------+---------+---------+---------+---------+ | APHTHOU | [id number] | | Active | | Sofielen | | Yuryou | | | S ULCER | 05 | | | / | page Pimentel | | ayaka contreras | | | OF | (SNOMED | | | | CCMA | | of | | | MOUTH | CT) | | | | | | mouth | | +---------+---------+---------+---------+---------+---------+---------+---------+---------+ | DIFFICU | [id number] | | Active | | Nayan | | Walking | | | LTY IN | 08 | /20 | | /20 | Hersche | | | | | WALKING | (SNOMED | | | | r DO | | disabil | | | | CT) | | | | | | ity | | +---------+---------+---------+---------+---------+---------+---------+---------+---------+ | TOTAL | [id number] | | Active | | Florecita | | Total | | | HIP | 7 | /17 | | /17 | Suhr | | replace | | | ARTHROP | (SNOMED | | | | CONTINUITY EDITOR-C | | ment of | | | [...] , | -CM) | | | | CONTINUITY EDITOR-C | | osteoar | | | LOCALIZ [...] | | | +---------+---------+---------+---------+---------+---------+---------+---------+---------+ | FOOT | [id number] | | Resolve | | Florecita | | Foot | | | PAIN, | 7 | | d | /15 | Suhr | | pain | | | RIGHT | (SNOMED | | | | CONTINUITY EDITOR-C | | | | | | CT) | | | | | | | | +---------+---------+---------+---------+---------+---------+---------+---------+---------+ | RECTAL | [id number] | | Resolve | | Florecita | | Rectal | per | | BLEEDIN | 2 | /15 | d | /15 | Suhr | | hemorrh | Sacred | | G | (SNOMED | | | | CONTINUITY EDITOR-C | | age | Heart | | | CT) | | | | | | | [place] | | | | | | | | | | nd ER | | | | | | | | | | visit | | | | | | | | | | 05/11/14 | +---------+---------+---------+---------+---------+---------+---------+---------+---------+ | ANAL | [id number] | | Resolve | | Florecita | | Anal | per | | FISSURE | 6 | /30 | d | /30 | Suhr | | fissure | Alexander | | | (SNOMED | | | | CONTINUITY EDITOR-C | | | [place] | | | CT) | | | | | | | MD | +---------+---------+---------+---------+---------+---------+---------+---------+---------+ | NEW | [id number] | | Resolve | | Florecita | | Procedu | | | PATIENT | 03 | / | d | /24 | Suhr | | re | | | | (SNOMED | | | | CONTINUITY EDITOR-C | | carried | | | CONSULT | CT) | | | | | | out on | | | ATION | | | | | | | | | | | | | | | | | subject | | +---------+---------+---------+---------+---------+---------+---------+---------+---------+ | AVASCUL | [id number] | | Active | | Prabhakar | | Avascul | | | AR | | | | | | | ar [...] femur | | +---------+---------+---------+---------+---------+---------+---------+---------+---------+ | URI | 6372571 | | Inactiv | | Loraine | [...] on | | +---------+---------+---------+---------+---------+---------+---------+---------+---------+ | HYPERTE | 7700799 | | Active | | Rudy | | Hyperte | | | NSION | 3 | /24 | | / | Monteir | | nsive | | | | (SNOMED | | | | o MD | | disorde | | | | CT) | | | | | | r | | +---------+---------+---------+---------+---------+---------+---------+---------+---------+ | ELEVATE | 4019582 | | Active | | Rudy | | Hypergl | | | D BLOOD | 7 | /24 | | /24 | Monteir | | ycemia | | | SUGAR | (SNOMED | | | | o MD | | | | | | CT) | | | | | | | | +---------+---------+---------+---------+---------+---------+---------+---------+---------+ | NEW | [id number] | | Removed | | Rudy | [...] subject | | +---------+---------+---------+---------+---------+---------+---------+---------+---------+ | SCREENI | [id number] | | Resolve | | Rudy | [...] ng | | +---------+---------+---------+---------+---------+---------+---------+---------+---------+ | SCREENI | 1039689 | | Resolve | | Rudy | [...] ng | | +---------+---------+---------+---------+---------+---------+---------+---------+---------+ | NICOTIN | 4551728 | | Active | | Prabhakar | | Nicotin | | | E | 8 | | | /08 | | | e | | | ADDICTI | (SNOMED | | | | VanAnro | | depende | | | ON | CT) | | | | oy MD | | nce | | +---------+---------+---------+---------+---------+---------+---------+---------+---------+ | ASEPTIC | 3257783 | | Inactiv | | Ann | [...] hip | | +---------+---------+---------+---------+---------+---------+---------+---------+---------+ | URI | [id number] | | Inactiv | | Phan | | Upper | | | | 9 | /19 | e | /19 | Middlek | | respira | | | | (SNOMED | | | | auff | | tory | | | | CT) | | | | CONTINUITY EDITOR | | infecti | | | | | | | | | | on | | +---------+---------+---------+---------+---------+---------+---------+---------+---------+ | SORE | 0613311 | | Inactiv | | Phan | | Pain in | | | THROAT | 03 | /19 | e | /19 | Middlek | | throat | | | | (SNOMED | | | | auff | | | | | | CT) | | | | CONTINUITY EDITOR | | | | +---------+---------+---------+---------+---------+---------+---------+---------+---------+ | OTHER | 8099199 | | Active | | Prabhakar | [...] | | | +---------+---------+---------+---------+---------+---------+---------+---------+---------+ | OPIOID | 3051183 | | Active | | Phan | | Nondepe | | | ABUSE, | 05 | /28 | | / | Middlek | | ndent | | | CONTINU | (SNOMED | | | | auff | | opioid | | | OUS | CT) | | | | CONTINUITY EDITOR | | abuse, | | | | | | | | | | continu | | | | | | | | | | ous | | +---------+---------+---------+---------+---------+---------+---------+---------+---------+ | HIP | 8153274 | | Active | | Phan | | Hip | | | PAIN, | 2 | / | | / | Middlek | | pain | | | LEFT | (SNOMED | | | | auff | | | | | | CT) | | | | CONTINUITY EDITOR | | | | +---------+---------+---------+---------+---------+---------+---------+---------+---------+ | UPPER | 9832940 | | Inactiv | | Malachi Levin [...] on | | +---------+---------+---------+---------+---------+---------+---------+---------+---------+ | BRACHIA | 7473324 | | Inactiv | | Malachi Levin [...] | | | +---------+---------+---------+---------+---------+---------+---------+---------+---------+ | RIB | 1306443 | | Inactiv | | Malachi Levin | | Rib | | | PAIN | | | e | | Dye | | pain | | | | (SNOMED | | | | ACNP | | | | | | CT) | | | | | | | | +---------+---------+---------+---------+---------+---------+---------+---------+---------+ | LESION | 2081849 | | Active | | Clementina | | Plantar | | | OF | 04 | | | /02 | | | nerve | | | PLANTAR | (SNOMED | | | | Reppenh | | lesion | | | NERVE | CT) | | | | agen RN | | | | +---------+---------+---------+---------+---------+---------+---------+---------+---------+ | OSTEOAR | M19.90 | | Removed | | Clementnia | | Unspeci | | | THROSIS [...] | | | +---------+---------+---------+---------+---------+---------+---------+---------+---------+ | ANAL | 3475150 | | Removed | | Karissa | | Anal | per Dr. | | FISSURE | 6 | | | / | Sea | | fissure | Alexander | | | (SNOMED | | | | RN | | | [place] | | | CT) | | | | | | | MD | +---------+---------+---------+---------+---------+---------+---------+---------+---------+ | RECTAL | 5341155 | | Removed | | Rodrigo | [...] | 05/11/14 | +---------+---------+---------+---------+---------+---------+---------+---------+---------+ | SCREENI | 6063990 | | Removed | | Juan | [...] ng | | +---------+---------+---------+---------+---------+---------+---------+---------+---------+ | SCREENI | 4729537 | | Removed | | Andriy | | Alcohol | | | NG FOR | | / | | /19 | Padovic | | | | | ALCOHOL | (SNOMED | | | | h CONTINUITY EDITOR | | consump | | | ISM | CT) | | | | | | tion | | | | | | | | | | screeni | | | | | | | | | | ng | | +---------+---------+---------+---------+---------+---------+---------+---------+---------+ | FOOT | 6874521 | | Removed | | Skye | | Foot | | | PAIN, | 7 | /15 | | /15 | Epifanio | | pain | | | RIGHT | (SNOMED | | | | CONTINUITY EDITOR | | | | | | CT) [...] 1 tab | | | PSEUDOEPHE | [id number] | Phan | | ARVIND HCL | by mouth | | | ARVIND HCL | 2 | Middlekauf | | 30 MG TABS | four times | | | | | f CONTINUITY EDITOR | | | per day | | [...] 1tab by | | | HYDROCODON | 5457250893 | David | | 7.5-325 MG | [...] 1 spray | | | FLUTICASON | 8363627659 | Marisel | | ALLERGY | eash | | | E | 2 | Rubio CONTINUITY EDITOR | | RELIEF 50 | nostril | | | PROPIONATE | | | | MCG/ACT | once a day | | | | | | | SUSP | | | | | | | + + + + + + + + | DOXYCYCLIN | Take 1 | | | DOXYCYCLIN | 7412912702 | Malachi Levin | | E HYCLATE [...] day | | | 20MG | | [place] | + + + + + [...] 1 tablet | | | MELOXICAM | 6707030302 | Phan | | MG TABS | by mouth | | | | 1 | Middlekauf | | | daily. | | | | | f CONTINUITY EDITOR | | | Must last | | | | | | | | 30 days. | | | | | | + + + + + + + + | CLINDAMYCI | 1 tab by | | | CLINDAMYCI | 1477507440 | Malachi K | | N HCL [...] | prn | | | MAGNESIUM | 8454500162 | Melvina | | OF | constipati [...] By mouth | | | IBUPROFEN | 3820398158 | Andriy | | 200 MG | 3 times a | | | | 1 | Padovich | | TABS | day | | | | | CONTINUITY EDITOR | + + + + + + + + | CHANTIX 1 | 1 tab two | | | VARENICLIN | 5325033724 | Karma | | MG TABS | times per | | | E TARTRATE | 6 | Berenice [place] | | | day | | | | | | + + + + + + + + | HYDROCODON | Take 1 tab | | | HYDROCODON | 0923716537 | Karma | | E-ACETAMIN | po [...] tab BID | | | CYCLOBENZA | [id number] | David | | YESSY HCL | PRN muscle | | | YESSY HCL | 1 | Chickering | | 10 MG TABS | pain | | | | | MA | + + + + + + + + | IBUPROFEN | three | | | IBUPROFEN | 1793172334 | Rudy | | 600 MG | times per | | | | 0 | Yaquelin | | TABS | day | | | | | MD | + + + + + + + + | BISAC-EVAC | 1 | | | BISACODYL | 5098363952 | Florecita | | 10 MG | suppositor | | | | 1 | Mackenzie GUPTAP-C | | SUPP | y MilagroHS PRN | | | | | | | | constipati | | | | | | | | on | | | | | | + + + + + + + + | GLORIA TUTTLE | | | | GLORIA TUTTLE | | Andriy | | | | | | | | Nakia | | | | | | | | CONTINUITY EDITOR | + + + + + + + + | MIRALAX | 17grams | | | POLYETHYLE | 5817720041 | Melvina | | POWD | mixed [...] Apply prn | | | BALSAM | 3883398751 | Nayan | | 650-72.5 | to lower | | | JOSEPH-GEOVANY | 3 | Carnation | | MG/0.82ML | lip for | [...] | follow | | | VARENICLIN | 8497936360 | Davi | | STARTING | coco | | | E AZALEA | 3 | Edison GARCIA | | NILSA DE JESUS | [place] [...] 1 lozenge | | | BENZOCAINE | 9763834142 | Karma | | SORE | every [...] | | | UDS | | Cyndi [place] | | | consistent | | | | | NCMA | + + + + + + + + | COLACE 100 | 1 cap BID | | | DOCUSATE | [id number] | Florecita | | MG CAPS | | | | SODIUM | 0 | Suhr CONTINUITY EDITOR-C | + + + + + + + + | [facility] LYSINE | take 1 tab | | | LYSINE | 5941914702 | David | | 1000 MG | daily | | | | 9 | Chickering | | TABS | | | | | | MA | + + + + + + + + | CHANANNEX 1 | take 1tab | | | VARENICLIN | 2915842274 | Davi | | MG TABS | [...] tab BID | | | CYCLOBENZA | [id number] | Florecita | | YESSY HCL | PRN muscle | | | YESSY HCL | 1 | Suhr CONTINUITY EDITOR-C | | 10 MG TABS | pain | | | | | | + + + + + + + + | NORCO | 1 every 8 | | | HYDROCODON | 8998635341 | Rudy | | 5-325 MG | hours as | | | E-ACETAMIN | 1 | Yaquelin | | TABS | needed | | | OPHEN | | MD | + + + + + + + + | NORCO | 1 tab po | | | HYDROCODON | 0167760806 | Karma | | 5-325 MG | QD | | | E-ACETAMIN | 1 | Berenice [place] | | TABS | | | | OPHEN | | | + + + + + + + + | PSEUDOEPHE | 1-2 | | | PSEUDOEPHE | 4177872845 | Marisel | | DRINE HCL | tablets | | | DRINE HCL | 2 | Rubio CONTINUITY EDITOR | | 30 MG TABS | every [...] 1 by | | | TRAMADOL | 3290463717 | Marisel | | HCL 50 MG | mouth | | | HCL | 1 | Rubio DEL CID | | TABS | every 6 | | | | | | | | hours | | | | | | + + + + + + + + | COLACE 100 | Take 1 bid | | | DOCUSATE | 3940896707 | Davi | | MG CAPS | prn | | | SODIUM | 0 | Edison GARCIA | | | constipati | | | | | | | | on | | | | | | + + + + + + + + | OXYCODONE | 3-4 per | | | OXYCODONE | 7666608153 | Karma | | HCL 10 MG | day | | | HCL | 1 | Berenice CONRAD | | TABS | | | | | | | + + + + + + + + | OXYCODONE | 1 tab q 4 | | | OXYCODONE | 2336331539 | Karma | | HCL 15 MG | hrs PRN | | | HCL | 1 | Berenice CONRAD | | TABS | pain | | | | | | + + + + + + + + | HYDROCODON | Take 1 tab | | | HYDROCODON | 3364652450 | Melvina | | E-ACETAMIN | po [...] 1 tab | | | TRAMADOL | 0349232298 | Karma | | HCL 50 MG [...] 1 tab | | | OXYCODONE- | 2137929569 | Phan | | ACETAMINOP | by mouth | | | ACETAMINOP | 5 | Middlekauf | | HEN 5-325 | three | | | HEN | | f CONTINUITY EDITOR | | MG TABS | times per [...] Take 1 | | | AMITRIPTYL | 5173461086 | Marisel | | MG TABS | tab po QHS | | | INE HCL | 0 | Rubio CONTINUITY EDITOR | + + + + + + + + | GUAIFENESI | take 1 to | | | GUAIFENESI | 0322683945 | Marisel | | N 200 MG | 2 tablets | | | N | 0 | Rubio CONTINUITY EDITOR | | TABS | by mouth | [...] Inhale 2 | | | ALBUTEROL | 3639340540 | Malachi Levin | | 108 (90 [...] 1 inch | | | NITROGLYCE | 2978007441 | Davi | | % OINT | [...] 4-6 per | | | HYDROCODON | 8890713726 | Prabhakar | | 5-325 MG | day | | | E-ACETAMIN | 1 | Uzma | | TABS | | | | OPHEN | | MD | + + + + + + + + | PERCOCET | take 1 by | | | OXYCODONE- | 0516506581 | Marisel | | 5-325 MG | mouth two | | | ACETAMINOP | 0 | Rubio CONTINUITY EDITOR | | TABS | times per | [...] 1 tab | | | WARFARIN | 6886607219 | David | | MG TABS | daily | | | SODIUM | 0 | Chickering | | | | | | | | MA | + + + + + + + + | UDS | 1.2.15 | | | UDS | | Prabhakar | | | consistent | | | | | VanMarinerooy | | | | | | | | MD | + + + + + + + + | AMBERDERM | Apply prn | | | BALSAM | 3658867760 | David | | 650-72.5 | to [...] | 17grams | | | POLYETHYLE | 0019852966 | David | | POWD | mixed [...] 1 tab | | | WARFARIN | 1823132967 | Florecita | | MG TABS | daily | | | SODIUM | 0 | Suhr CONTINUITY EDITOR-C | + + + + + + + + | OXYCODONE | 3-4 per | | | OXYCODONE | 7245953246 | Rudy | | HCL 10 MG | day | | | HCL | 1 | Yaquelin | | TABS | | | | | | MD | + + + + + + + + | TESSALON | Take three | | | BENZONATAT | 4295895612 | Karma | | RACHEL 100 | [...] | three | | | IBUPROFEN | 1563285908 | Prabhakar | | 600 MG | times per | | | | 0 | Uzma | | TABS | day | | | | | MD | + + + + + + + + | LISINOPRIL | 1 tab one | | | LISINOPRIL | 0333701131 | David | | 20 MG | time per | | | | 1 | Sarabjitering | | TABS | day | | | | | MA | + + + + + + + + | [facility] MILK | prn | | | MAGNESIUM | 9851623129 | David | | OF | constipati [...] po q | | | OXYCODONE- | 1633046267 | Davi | | ACETAMINOP | 6 hrs prn | | | ACETAMINOP | 5 | [place]oyne DO | | HEN 5-325 | rectal | | | HEN | | | | MG TABS | pain | | | | | | + + + + + + + + | COLACE 100 | 1 cap BID | | | DOCUSATE | 7476915875 | David | | MG CAPS | | | | SODIUM | 0 | Chickering | | | | | | | | MA | + + + + + + + + | TYLENOL 8 | 1 tablet | | | ACETAMINOP | 3020188683 | Nayan | | HOUR | every 4 | | | HEN | 1 | Carnation | | ARTHRITIS | hours as | | | | | DO | | PAIN 650 | needed for | | | | | | | MG CR-TABS | | | | | | | | | pain/fever | | | | | | + + + + + + + + | GRX HICORT | 1 | | | HYDROCORTI | 5352709055 | Davi | | 25 25 MG [...] TAB Q6 | | | TRAMADOL | 6176875711 | Rudy | | HCL 50 MG | HRS PRN | | | HCL | 1 | Yaquelin | | TABS | PAIN | | | | | MD | + + + + + + + + | [facility] MIL[facility] | 5 ml po | | | MAGNESIUM | 8607117557 | Davi | | OF | mid prn | | | HYDROXIDE | 6 | Edison GARCIA | | MELVIN | constipati | | | | | | | 400 MG/5ML | on | | | | | | | SUSP | | | | | | | + + + + + + + + | CLINDAMYCI | 1 tab by | | | CLINDAMYCI | 2461862876 | Tommy | | N HCL 150 [...] Inhale 2 | | | ALBUTEROL | 8912629459 | Phan | | 108 (90 | puffs | | | SULFATE | 2 | Middlekauf | | Base) | every 4 | | | | | f CONTINUITY EDITOR | | MCG/ACT | hours as | [...] tab q | | | OXYCODONE- | 4498622461 | Florecita | | 7.5-325 MG | 4 hrs for | | | ACETAMINOP | 0 | Suhr CONTINUITY EDITOR-C | | TABS | pain, hold | [...] po bid | | | HYDROCODON | 3191347117 | Cyndi [place] | | E-ACETAMIN | prn severe | | | E-ACETAMIN | 1 | NCMA | | OPHEN | pain | | | OPHEN | | | | 5-325 MG | | | | | | | | TABS | | | | | | | + + + + + + + + | NORCO | 4-6 per | | | HYDROCODON | 8493822647 | Karma | | 5-325 MG | day | | | E-ACETAMIN | 1 | Berenice CONRAD | | TABS | | | | OPHEN | | | + + + + + + + + | TRAMADOL | 1-2 TAB | | | TRAMADOL | 1696024195 | David | | HCL 50 MG | BID PRN | | | HCL | 1 | Chickering | | TABS | PAIN | | | | | MA | + + + + + + + + | GUAIFENESI | 1 tab | | | GUAIFENESI | 8634473895 | Karma | | N 400 MG [...] 1 tab | | | TRAMADOL | 6006825878 | Davi | | HCL 50 MG | q 6 hours | | | HCL | 1 | Hoyne DO | | TABS | prn pain | | | | | | + + + + + + + + | CHANTIX 1 | 2tabs po | | | VARENICLIN | 3625513763 | Rudy | | MG TABS | qd | | | E TARTRATE | 6 | Yaquelin | | | | | | | | MD | + + + + + + + + | BISAC-EVAC | 1 | | | BISACODYL | [id number] | David | | 10 MG | [...] Insert 1 | | | BISACODYL | [id number] | Marisel | | BISACODYL | enema into | | | | 6 | Rubio CONTINUITY EDITOR | | 10 MG/30ML | rectum | | | | | | | ENEM | may repeat | | | | | | | | next day | | | | | | | | PRN | | | | | | + + + + + + + + | MIRALAX | Mix 17gm | | | POLYETHYLE | [id number] | Marisel | | POWD | of powder | | | NE GLYCOL | 2 | Rubio [employer]INUITY EDITOR | | | with | | | 3350 | | | | | liquid per | | | | | | | | day | | | | | | + + + + + + + + | CARDIZEM | 1 by mouth | | | DILTIAZEM | [id number] | Marisel | | 60 MG TABS | twice | | | HCL | 7 | Rubio [employer] EDITOR | | | daily for | | | | | | | | 8 weeks | | | | | | + + + + + + + + | RECTIV 0.4 | 1 inch | | | NITROGLYCE | [id number] | Darius | | % OINT | [...] 1 tab | | | TRAMADOL | [id number] | Marisel | | HCL 50 MG | q 6 hours | | | HCL | 1 | Rubio GUPTAP | | TABS | prn pain | | | | | | + + + + + + + + | [facility] MILK | 5 ml po | | | MAGNESIUM | [id number] | Marisel | | OF | mid prn | | | HYDROXIDE | 6 | Rubio CONTINUITY EDITOR | | MAGNESIA | constipati | | | | | | | 400 MG/5ML | on | | | | | | | SUSP | | | | | | | + + + + + + + + | COLACE 100 | Take 1 bid | | | DOCUSATE | [id number] | Marisel | | MG CAPS | prn | | | SODIUM | 0 | Rubio [employer]UITY EDITOR | | | constipati | | | | | | | | on | | | | | | + + + + + + + + | ANECREAM5 | thin film | | | LIDOCAINE | [id number] | Darius | | 5 % CREA | to rectum | | | (ANORECTAL | 5 | Niels | | | tid prn | | | ) | | PA-C | | | pain | | | | | | + + + + + + + + | OXYCODONE- | 1 tab po q | | | OXYCODONE- | [id number] | Darius | | ACETAMINOP | 6 hrs prn | | | ACETAMINOP | 5 | Niels | | HEN 5-325 | rectal | | | HEN | | PA-C | | MG TABS | pain | | | | | | + + + + + + + + | ANACAINE | thin film | | | BENZOCAINE | [id number] | Darius | | 10 % OINT [...] | 1 | | | HYDROCORTI | [id number] | Darius | | 25 25 MG [...] 1 by | | | OXYCODONE- | [id number] | Marisel | | 5-325 MG | mouth two | | | ACETAMINOP | 0 | Rubio DEL CID | | TABS | times per | [...] | follow | | | VARENICLIN | [id number] | Marisel | | STARTING | instructio [...] | 1-2 | | | PSEUDOEPHE | [id number] | Marisel | | DRINE HCL | tablets | | | DRINE HCL | 2 | Rubio CONTINUITY EDITOR | | 30 MG TABS | every [...] 1 by | | | TRAMADOL | [id number] | Marisel | | HCL 50 MG | mouth | | | HCL | 1 | Rubio CONTINUITY EDITOR | | TABS | every 6 | | | | | | | | hours | | | | | | + + + + + + + + | PSEUDOEPHE | 1-2 | | | PSEUDOEPHE | [id number] | Marisel | | DRINE HCL | tablets | | | DRINE HCL | 2 | Rubio CONTINUITY EDITOR | | 30 MG TABS | every [...] 1 to | | | GUAIFENESI | [id number] | Marisel | | N 200 MG | 2 tablets | | | N | 0 | Rubio CONTINUITY EDITOR | | TABS | by mouth | [...] 1 spray | | | FLUTICASON | [id number] | Marisel | | ALLERGY | eash | | | E | 2 | Rubio DEL CID | | RELIEF 50 | nostril | | | PROPIONATE | | | | MCG/ACT | once a day | | | | | | | SUSP | | | | | | | + + + + + + + + | LISINOPRIL | 1 tab one | | | LISINOPRIL | [id number] | Rudy | | 20 MG | time per | | | | 1 | Yaquelin | | TABS | day | | | | | MD | + + + + + + + + | CHANTIX 1 | take 1tab | | | VARENICLIN | 7439697318 | Rudy | | MG TABS | po daily | | | E TARTRATE | 6 | Yaquelin | | | | | | | | MD | + + + + + + + + | ELAVIL 25 | Take 1 | | | AMITRIPTYL | 9599715386 | Rudy | | MG TABS | tab po QHS | | | INE HCL | 0 | Yaquelin | | | | | | | | MD | + + + + + + + + | TRAMADOL | 1-2 TAB | | | TRAMADOL | [id number] | Rudy | | HCL 50 MG | BID PRN | | | HCL | 1 | Yaquelin | | TABS | PAIN | | | | | MD | + + + + + + + + | TRAMADOL | 1 TAB BID | | | TRAMADOL | [id number] | Rudy | | HCL 50 MG | PRN PAIN | | | HCL | 1 | Yaquelin | | TABS | | | | | | MD | + + + + + + + + | NORCO | 1tab by | | | HYDROCODON | 1668512935 | Rudy | | 7.5-325 MG | [...] TAB Q6 | | | TRAMADOL | 4522790167 | Prabhakar | | HCL 50 MG | HRS PRN | | | HCL | 1 | VanAnrooy | | TABS | PAIN | | | | | MD | + + + + + + + + | NORCO | 1tab po | | | HYDROCODON | 5079932083 | Rudy | | 7.5-325 MG | [...] tab po | | | HYDROCODON | 7507555340 | Rudy | | 5-325 MG | QD | | | E-ACETAMIN | 1 | Yaquelin | | TABS | | | | OPHEN | | MD | + + + + + + + + | TRAMADOL | take 1 tab | | | TRAMADOL | 8299510856 | Rudy | | HCL 50 MG | nightly | | | HCL | 1 | Yaquelin | | TABS | | | | | | MD | + + + + + + + + | NORCO | 1 every 8 | | | HYDROCODON | 2625832639 | Prabhakar | | 5-325 MG | hours as | | | E-ACETAMIN | 1 | VanAnrooy | | TABS | needed | | | OPHEN | | MD | + + + + + + + + | OXYCODONE | 1 tab q 4 | | | OXYCODONE | 1422847241 | Florecita | | HCL 15 MG | hrs PRN | | | HCL | 1 | Suhr CONTINUITY EDITOR-C | | TABS | pain | | | | | | + + + + + + + + | [facility] LYSINE | take 1 tab | | | LYSINE | 4413920098 | Rudy | | 1000 MG | [...] tab q | | | OXYCODONE- | 7508366053 | Florecita | | 7.5-325 MG | 4 hrs for | | | ACETAMINOP | 0 | Suhr CONTINUITY EDITOR-C | | TABS | pain, hold | | | HEN | | | | | if | | | | | | | | somnolent | | | | | | | | or asleep. | | | | | | + + + + + + + + | PERCOCET | 1-2 tab q | | | OXYCODONE- | 8838608101 | Florecita | | 7.5-325 MG | 4 hrs PRN | | | ACETAMINOP | 0 | Suhr CONTINUITY EDITOR-C | | TABS | pain, | | | HEN | | | | | dispense | | | | | | | | #84 | | | | | | + + + + + + + + | TESSALON | Take three | | | BENZONATAT | 9670944432 | Loraine | | RACHEL 100 | [...] 1tab po | | | VARENICLIN | 5934399190 | Rudy | | MG TABS | bid | | | E TARTRATE | 6 | Yaquelin | | | | | | | | MD | + + + + + + + + | HYDROCODON | Take 1 tab | | | HYDROCODON | 6622156102 | Rudy | | E-ACETAMIN | po [...] po qd | | | LISINOPRIL | 6614943583 | Rudy | | 20 MG | | | | | 1 | Yaquelin | | TABS | | | | | | MD | + + + + + + + + | TRAMADOL | 1 TAB Q6 | | | TRAMADOL | 5018497222 | Prabhakar | | HCL 50 MG | HRS PRN | | | HCL | 1 | VanAnrooy | | TABS | PAIN | | | | | MD | + + + + + + + + | GUAIFENESI | 1 tab | | | GUAIFENESI | 8983364067 | Phan | | N 400 MG | every 4 | | | N | 0 | Middlekauf | | TABS | hours as | | | | | f CONTINUITY EDITOR | | | needed for | | | | | | | | | | | | | | | | cough/yaw | | | | | | | | estion | | | | | | + + + + + + + + | CEPACOL | 1 lozenge | | | BENZOCAINE | 2352719585 | Phan | | SORE | every 2 | | | -MENTHOL | 0 | Middlekauf | | THROAT | hours as | | | | | f CONTINUITY EDITOR | | 10-2.1 MG | needed for | | | | | | | LOZG | sore | | | | | | | | throat | | | | | | + + + + + + + + | PSEUDOEPHE | Take 1 tab | | | PSEUDOEPHE | 1022372858 | Malachi Levin | | DRINE HCL [...] Take 3 | | | PREDNISONE | 7994502359 | Malachi Levin | | 20 MG [...] 1 tab | | | OXYCODONE- | 6003966420 | Malachi Levin | | ACETAMINOP | [...] Take 1 | | | GABAPENTIN | 8897540248 | Malachi Levin | | 300 MG [...] 1 tab | | | CYCLOBENZA | 9265960219 | Malachi Levin | | YESSY HCL [...] po bid | | | HYDROCODON | 4796379007 | Tommy | | E-ACETAMIN | prn [...] 1 tablet | | | MELOXICAM | 3965150959 | Jovany | | MG TABS | [...] | | | | | | | CONTINUITY EDITOR | + + + + + + [...] | | | | | | | CONTINUITY EDITOR | +---------+ + + + + + | CODEINE | Itch | | Critical | No Longer | Skye | | | | | | Active | Epifanio CONTINUITY EDITOR | +---------+ + + + + + | SULFA | Break out in | | Critical | | Skye | | | hives | | | | Epifanio CONTINUITY EDITOR | +---------+ + + + + + Results +------+------+-------+------+-------+------+ + | Date | Name | Value | Unit | Range | Flag | Descriptio | | | | | | | | n | +------+------+-------+------+-------+------+ + + + | Office Visit: f/u anal fissure, pain meds | + + + +---------+---------+---+---+---+ + | | DIET | Yes | | | | Dietary | | | [employer] [place] | | | | | management | [...] | | | | CPH[facility] | + +---------+---------+---+---+---+ + | | MEDS [...] | | ) | + +---------+---------+---+---+---+ + + + | Office Visit: Walk [...] | Referral | | GI Consult | + + + + | Referral | | Other Referral | | | | Other Provider, Specify | | | | Provider in Instructions | + + + + | Referral | | Other Referral | | | | Hugo Matta, [address] | | | | [address], | | | | [place], [address] | | | | | + + + + | Referral | | ENT Consult | | | | [employer] Phone #, [phone] | | | | [address] , | | | | [place], [address] | | | | | + + + + Procedures + + + + + | Code | Procedure Name | Date | Entry Date | + + + + + | [id number] | Overweight | | | + + + + + | [id number] | Overweight | | | + + + + + | [id number] | Overweight | | | + + + + + | CPT-98671 | XR Hip W/Pelvis | | | | | 2-3V-Lt | | | + + + + + | [id number] | Overweight | | | + + + + + | CPT-68133 | XR Hip W/Pelvis | | | | | 2-3V-Lt | | | + + + + + | CPT-53820 | Urine Toxicology | | | | | Screen, Multiple | | | | | Drug Classes by | | | | | Direct Optical | | | | | Observation | | | + + + + + | [id number] | Overweight | | | + + + + + | [id number] | Overweight | | | + + + + + | CPT-J1885 | Toradol 15mg | | | + + + + + | CPT-60360 | Theraputic | | | | | Injection (IM/SubQ) | | | + + + + + | [id number] | Overweight | | | + + + + + | CPT-96357 | Theraputic | | | | | Injection (IM/SubQ) | | | + + + + + | CPT-J1885 | Toradol 15mg | | | + + + + + | CPT-59996 | Urine Toxicology | | | | | Screen, Multiple | | | | | Drug Classes by | | | | | Direct Optical | | | | | Observation | | | + + + + + | CPT-29425 | [id number] [facility] Individual | | | | | Therapy (53-112) | | | | | No POS Phone | | | + + + + + | CPT-94604 | XR Hip W/Pelvis | | | | | 2-3V-Lt | | | + + + + + | CPT-85234 | Theraputic | | | | | Injection (IM/SubQ) | | | + + + + + | CPT-J1885 | Toradol 15mg | | | + + + + + | CPT-29473 | Urine Toxicology | | | | | Screen, Multiple | | | | | Drug Classes by | | | | | Direct Optical | | | | | Observation | | | + + + + + | CPT-41735 | Theraputic | | | | | Injection (IM/SubQ) | | | + + + + + | CPT-J1885 | Toradol 15mg | | | + + + + + | CPT-26868 | Theraputic | | | | | Injection (IM/SubQ) | | | + + + + + | CPT-J1885 | Toradol 15mg | | | + + + + + | CPT-00038 | Theraputic | | | | | Injection (IM/SubQ) | | | + + + + + | CPT-J1885 | Toradol 15mg | | | + + + + + | CPT-62511 | XR Hip W/Pelvis | | | | | 2-3V-Lt | | | + + + + + | CBC AUTO 45220 | CBC w/ Auto Diff | | | + + + + + | CPT-46836 | XR Hip W/Pelvis | | | | | 2-3V-Lt | | | + + + + + | CBC AUTO 08133 | CBC w/ Auto Diff | | | + + + + + | M NOS MRSA 76516 | Nose Culture, MRSA | | | | | Only | | | + + + + + | CHEM 8 42212 | Basic Metabolic | | | | | Panel | | | + + + + + | CPT-49196 | Health Risk | | | | | Assessment | | | + + + + + | GLYCO HGB 92669 | Glyco Hemoglobin, | | | | | A1C | | | + + + + + | CPT-59543 | Health Risk | | | | | Assessment | | | + + + + + | CPT-59131 | Health Risk | | | | | Assessment | | | + + + + + | U NICOTINE 70280 | Cotinine | | | + + + + + | 72873 | MR Hip-WO Con-Lt | | | + + + + + | CPT-87489 | XR Hip W/Pelvis | | | | | 2-3V-Lt | | | + + + + + Vital Signs + + +-------+---------+ + | Date | Name | Value | Unit | Description | + + +-------+---------+ + | | BMI (Body Mass | 34.10 | kg/m2 | Body Mass Index | [...]
--- OUTSIDE RECORDS SUMMARY | ~2019-09-25 | XMS | Continuity of Care Document ---
Demographics + + + | Address | [address] | | | [place] [address] | + + + | Home Phone | | + + + | Preferred Language | Unknown | + + + | Marital Status | Unknown | + + + | Anabaptism Affiliation | Unknown | + + + | Race | Unknown | + + + | Ethnic Group | Unknown | + + + Author + + + | Author | [facility] | + + + | Organization | [facility] | + + + | Address | [address] | | | [place] [address] | + + + | Phone | | + + + Support + + + + + | Name | Relationship | Address | Phone | + + + + + | , IOANA PCP | Caregiver | [address] | | | | | [place], [place] | | | | | [address] | | + + + + + | Harsha Crabtree MD | Caregiver | [address] | | | | | [place], [place] | | | | | [address] | | + + + + + | STACY DEBBIE | Next Of Kervin | [place] [address] | | + + + + + Care Team Providers + + + + | Care Pmo Business Analyst Name | Role | Phone | + + + + | IOANA CAMPO | Unavailable | | + + + + Insurance Providers + + + + + | Payer Name | Policy Number | Subscriber Name | Relationship | + + + + + | [facility] | [id number] | BOBBY STODDARD | SELF | + + + + + Chief Complaint and Reason for Visit + + + | Reason for Visit | FOLLOW UP NV | + + + Problems Active [...] + +------+-------+-------+ + + + + | Loperami | 2 | MG | ORAL | AFTER | 20 | MAXIMU | 08/27/18 | | de HCL | | | [...] + +------+-------+-------+ + + + + | PROCHLOR | 10 | MG | ORAL | Every 6 | 15 | | 08/27/18 | | PERAZINE | | | | Hours as | | | | | MALEATE | | | | needed | | | | | | | | | for | | | | | (COMPAZI | | | | Nausea | | | | | NE) 10 | | | | and | | | | | MG | | | | vomiting | | | | | TABLET | | | | | | | | + +------+-------+-------+ + + + + | Penicill | 500 | MG | ORAL | Twice | 20 | | /18 | | in V | | | [...] | Every 6 | 10 | | 18 | | Hcl | | | | [...] needed for Pain | | | | ([place] 5-325 | | | | | Tablet) 1 Each | | | | | Tablet Tablet, 1 | | | | | Tab Oral | | | | + + + + + | Hydrocodone | Every 4 Hours as | 01/13/15 | Discontinued | | Bit/Acetaminophen | Needed as needed | | | | ([place] 5-325 | for PAIN | | | | Tablet) 5 Mg-325 Mg | | | | | Tablet Tablet, 1-2 | | | | | Tab Oral | | | | + + + + + | Hydrocodone/Acetami | | Unknown | Discontinued | | nophen ([place] | | | | | 5MG-325MG) 5 [...] Mg | Pain | | | | ([place] 10-325 Mg) | | | | | 10 Mg-325 Mg Tab | | | | | Tab, 0.5-1 Tab Oral | | | | + + + + + | Hydrocodone/Apap | Every 6 Hours | 08/15/16 | Discontinued | | 5-325 Mg ([place] | | | | | 5-325 Mg) [...] Mg | Nausea | | | | Tab.geovanni | | | | | Tab.geovanni, 4 [...] Irritation | | | | Soln, 1 [place] Nasal | | | | + + [...] + + + | Discharge Date | 08/27/18 | + + + | Disposition | HOME | + + + | Condition at Discharge | Fair | + + + | Instructions/Education Provided | Hypokalemia | | | Viral Gastroenteritis, Adult | + + [...] | Unknown | ANAPHYLAXIS, | Active | 08/27/18 | | (Sulfonamide | | | HIVES | | | | | | | | | | | Antibiotics) | | | | | | + +---------+ + +--------+ + | codeine | Allergy | Unknown | | Active | 08/27/18 | + +---------+ + +--------+ + Immunizations No Known History of Immunizations. Vital Signs + + + + | Vital Reading | Collection Date/Time | Result | + + + + | Blood Pressure | 08/27/18 10:11am | 149/92 | + + + + | Blood Pressure Source | 06/17/16 4:24am | Right Arm | + + + + | Temperature | 08/27/18 9:18am | 98.4 F | + + + + | Temperature Source | 08/27/18 9:18am | Temporal | + + + + | Respiratory Rate | 08/27/18 10:11am | 16 | + + + + | Pulse Rate | 08/27/18 10:11am | 76 | + + + + | Bedside Pulse Oximetry | 08/27/18 10:11am | 98 | + + + + | Height | 08/27/18 9:18am | 6 ft 1 in | + + + + | Height | 08/27/18 9:18am | 185.42 cm | + + + + | Weight | 08/27/18 9:18am | 230 lb | + + + + | Weight | 08/27/18 9:18am | 104.33 kg | + + + + | Body Mass Index | 08/27/18 9:18am | 30.3 kg/m2 | + + + + Results [...] Urine | Clean | | | | 08/27/18 | 08/27/18 | | | Source | Catch | | | | 11:11am | 12:01pm | | + +--------+ +-------+ + + + + | Urine | Yellow | | | P-Yellow | 08/27/18 | 08/27/18 | | | Color | | | | | 11:11am | 12:01pm | | + +--------+ +-------+ + + + + | Urine | Clear | | | Clear | 08/27/18 | 08/27/18 | | | Appearan | | | | | 11:11am | 12:01pm | | | ce | | | | | | | | + +--------+ +-------+ + + + + | Urine | 1.020 | | | 1.003-1. | 08/27/18 | 08/27/18 | | | Specific | | | | 022 | 11:11am | 12:01pm | | | [place] | | | | | | | | + +--------+ +-------+ + + + + | Urine pH | 6.0 | | | 5.0-8.0 | 08/27/18 | 08/27/18 | | | | | | | | 11:11am | 12:01pm | | + +--------+ +-------+ + + + + | Urine | 1+ | | * | Neg | 08/27/18 | 08/27/18 | | | Leukocyt | | | | | 11:11am | 12:01pm | | | e | | | | | | | | | Esterase | | | | | | | | + +--------+ +-------+ + + + + | Urine | Neg | | | Neg | 08/27/18 | 08/27/18 | | | Nitrite | | | | | 11:11am | 12:01pm | | + +--------+ +-------+ + + + + | Urine | 2+ | | * | Neg | 08/27/18 | 08/27/18 | | | Protein | | | | | 11:11am | 12:01pm | | + +--------+ +-------+ + + + + | Urine | Neg | | | Neg | 08/27/18 | 08/27/18 | | | Glucose | | | | | 11:11am | 12:01pm | | + +--------+ +-------+ + + + + | Urine | 1+ | | * | Neg | 08/27/18 | 08/27/18 | | | Ketones | | | | | 11:11am | 12:01pm | | + +--------+ +-------+ + + + + | Urine | NORM | | | Normal | 08/27/18 | 08/27/18 | | | Urobilin | | | | | 11:11am | 12:01pm | | | ogen | | | | | | | | + +--------+ +-------+ + + + + | Urine | Neg | | | Neg | 08/27/18 | 08/27/18 | | | Bilirubi | | | | | 11:11am | 12:01pm | | | n | | | | | | | | + +--------+ +-------+ + + + + | Urine | 1+ | | * | Neg | 08/27/18 | 08/27/18 | | | Blood | | | | | 11:11am | 12:01pm | | + +--------+ +-------+ + + + + | Urine | 0-2 | /hpf | | 0-5 | 08/27/18 | 08/27/18 | | | WBC | | | | | 11:11am | 12:07pm | | + +--------+ +-------+ + + + + | Urine | 0-2 | /hpf | | 0-2 | 08/27/18 | 08/27/18 | | | RBC | | | | | 11:11am | 12:07pm | | + +--------+ +-------+ + + + + | Urine | Few | /hpf | | Few | 08/27/18 | 08/27/18 | | | Squamous | | | | | 11:11am | 12:07pm | | | | | | | | | | | | Epitheli | | | | | | | | | al Cells | | | | | | | | + +--------+ +-------+ + + + + | Urine | Few | /hpf | * | None | 08/27/18 | 08/27/18 | | | Bacteria | | | | | 11:11am | 12:07pm | | + +--------+ +-------+ + + + + | Urine | Yes | | * | No | 08/27/18 | 08/27/18 | | | Culture | | | | | 11:11am | 12:01pm | | | Indicate | | | | | | | | | d | | | | | | | | + +--------+ +-------+ + + + + | White | 6.39 | K/mm3 | | 4.00-11. | 08/27/18 | 08/27/18 | | | Blood | | | | 30 | 10:20am | 10:44am | | | Count | | | | | | | | + +--------+ +-------+ + + + + | Red | 5.01 | M/mm3 | | 4.30-5.9 | 08/27/18 | 08/27/18 | | | Blood | | | | 0 | 10:20am | 10:44am | | | Count | | | | | | | | + +--------+ +-------+ + + + + | Hemoglob | 15.0 | g/dL | | 13.5-17. | 08/27/18 | 08/27/18 | | | in | | | | 5 | 10:20am | 10:44am | | + +--------+ +-------+ + + + + | Hematocr | 45.4 | % | | 37.0-53. | 08/27/18 | 08/27/18 | | | it | | | | 0 | 10:20am | 10:44am | | + +--------+ +-------+ + + + + | Mean | 91 | fL | | 80-100 | 08/27/18 | 08/27/18 | | | Corpuscu | | | | | 10:20am | 10:44am | | | lar | | | | | | | | | Volume | | | | | | | | + +--------+ +-------+ + + + + | Mean | 29.9 | pg | | 26.0-34. | 08/27/18 | 08/27/18 | | | Corpuscu | | | | 0 | 10:20am | 10:44am | | | lar | | | | | | | | | Hemoglob | | | | | | | | | in | | | | | | | | + +--------+ +-------+ + + + + | Mean | 33.0 | g/dL | | 31.5-36. | 08/27/18 | 08/27/18 | | | Corpuscu | | | | 5 | 10:20am | 10:44am | | | lar | | | | | | | | | Hemoglob | | | | | | | | | in | | | | | | | | | Concent | | | | | | | | + +--------+ +-------+ + + + + | RDW | 43.7 | fL | | 35.1-46. | 08/27/18 | 08/27/18 | | | Standard | | | | 3 | 10:20am | 10:44am | | | | | | | | | | | | Deviatio | | | | | | | | | n | | | | | | | | + +--------+ +-------+ + + + + | RDW | 13.1 | % | | 11.7-14. | 08/27/18 | 08/27/18 | | | Coeffici | | | | 2 | 10:20am | 10:44am | | | ent of | | | | | | | | | Variatio | | | | | | | | | n | | | | | | | | + +--------+ +-------+ + + + + | Platelet | 229 | K/mm3 | | 150-400 | 08/27/18 | 08/27/18 | | | Count | | | | | 10:20am | 10:44am | | + +--------+ +-------+ + + + + | Mean | 10.1 | fL | | 9.1-12.4 | 08/27/18 | 08/27/18 | | | Platelet | | | | | 10:20am | 10:44am | | | Volume | | | | | | | | + +--------+ +-------+ + + + + | Differen | Auto | | | | 08/27/18 | 08/27/18 | | | tial | | | | | 10:20am | 10:44am | | | Method | | | | | | | | + +--------+ +-------+ + + + + | Neutroph | 73 | % | | 41-73 | 08/27/18 | 08/27/18 | | | ils (%) | | | | | 10:20am | 10:44am | | | (Auto) | | | | | | | | + +--------+ +-------+ + + + + | Lymphocy | 18 | % | L | 21-46 | 08/27/18 | 08/27/18 | | | wicho (%) | | | | | 10:20am | 10:44am | | | (Auto) | | | | | | | | + +--------+ +-------+ + + + + | Monocyte | 8 | % | | 4-13 | 08/27/18 | 08/27/18 | | | s (%) | | | | | 10:20am | 10:44am | | | (Auto) | | | | | | | | + +--------+ +-------+ + + + + | Eosinoph | 0 | % | | 0-6 | 08/27/18 | 08/27/18 | | | ils (%) | | | | | 10:20am | 10:44am | | | (Auto) | | | | | | | | + +--------+ +-------+ + + + + | Basophil | 1 | % | | 0-2 | 08/27/18 | 08/27/18 | | | s (%) | | | | | 10:20am | 10:44am | | | (Auto) | | | | | | | | + +--------+ +-------+ + + + + | Immature | 0 | % | | 0-1 | 08/27/18 | 08/27/18 | | | | | | | | 10:20am | 10:44am | | | Granuloc | | | | | | | | | yte % | | | | | | | | | (Auto) | | | | | | | | + +--------+ +-------+ + + + + | Nucleate | 0.0 | /100 WBC | | 0.0-0.2 | 08/27/18 | 08/27/18 | | | d Red | | | | | 10:20am | 10:44am | | | Blood | | | | | | | | | Cells % | | | | | | | | + +--------+ +-------+ + + + + | Absolute | 4.66 | K/mm3 | | 1.96-9.1 | 08/27/18 | 08/27/18 | | | | | | | 5 | 10:20am | 10:44am | | | Neutroph | | | | | | | | | ils | | | | | | | | | (auto) | | | | | | | | + +--------+ +-------+ + + + + | Absolute | 1.13 | K/mm3 | | 0.84-5.2 | 08/27/18 | 08/27/18 | | | | | | | 0 | 10:20am | 10:44am | | | Lymphocy | | | | | | | | | wicho | | | | | | | | | (auto) | | | | | | | | + +--------+ +-------+ + + + + | Absolute | 0.52 | K/mm3 | | 0.16-1.4 | 08/27/18 | 08/27/18 | | | | | | | 7 | 10:20am | 10:44am | | | Monocyte | | | | | | | | | s (auto) | | | | | | | | + +--------+ +-------+ + + + + | Absolute | 0.02 | K/mm3 | | 0.00-0.6 | 08/27/18 | 08/27/18 | | | | | | | 8 | 10:20am | 10:44am | | | Eosinoph | | | | | | | | | ils | | | | | | | | | (auto) | | | | | | | | + +--------+ +-------+ + + + + | Absolute | 0.05 | K/mm3 | | 0.00-0.2 | 08/27/18 | 08/27/18 | | | | | | | 3 | 10:20am | 10:44am | | | Basophil | | | | | | | | | s (auto) | | | | | | | | + +--------+ +-------+ + + + + | Absolute | 0.01 | K/mm3 | | 0.00-0.1 | 08/27/18 | 08/27/18 | | | | | | | 0 | 10:20am | 10:44am | | | Immature | | | [...] 0.00 | K/mm3 | | 0.00-0.0 | 08/27/18 | 08/27/18 | | | d RBC | | | | 2 | 10:20am | 10:44am | | | Absolute | | | | | | | | | Count | | | | | | | | | (auto) | | | | | | | | + +--------+ +-------+ + + + + | Sodium | 140 | mmol/L | | 136-145 | 08/27/18 | 08/27/18 | | | Level | | | | | 10:20am | 11:05am | | + +--------+ +-------+ + + + + | Potassiu | 3.4 | mmol/L | L | 3.5-5.5 | 08/27/18 | 08/27/18 | | | m Level | | | | | 10:20am | 11:05am | | + +--------+ +-------+ + + + + | Chloride | 105 | mmol/L | | 98-108 | 08/27/18 | 08/27/18 | | | Level | | | | | 10:20am | 11:05am | | + +--------+ +-------+ + + + + | Carbon | 29 | mmol/L | | 21-32 | 08/27/18 | 08/27/18 | | | Dioxide | | | | | 10:20am | 11:05am | | | Level | | | | | | | | + +--------+ +-------+ + + + + | Anion | 6 | mmol/L | | 6-16 | 08/27/18 | 08/27/18 | | | Gap | | | | | 10:20am | 11:05am | | + +--------+ +-------+ + + + + | Glucose | 107 | mg/dL | H | 70-99 | 08/27/18 | 08/27/18 | | | Level | | | | | 10:20am | 11:05am | | + +--------+ +-------+ + + + + | Blood | 13 | mg/dL | | 8-24 | 08/27/18 | 08/27/18 | | | Urea | | | | | 10:20am | 11:05am | | | Nitrogen | | | | | | | | + +--------+ +-------+ + + + + | Creatini | 0.69 | mg/dL | | 0.60-1.2 | 08/27/18 | 08/27/18 | | | ne | | | | 0 | 10:20am | 11:05am | | + +--------+ +-------+ + + + + | BUN/Crea | 18.8 | % | | 12.0-20. | 08/27/18 | 08/27/18 | | | tinine | | | | 0 | 10:20am | 11:05am | | | Ratio | | | | | | | | + +--------+ +-------+ + + + + | Glomerul | >60 | | | 60- | 08/27/18 | 08/27/18 | Non-Afri | | ar | | | | | 10:20am | 11:05am | can | | Filtrati | | | | | | | Faroese | | on Rate | | | | | | | GFR | | Calc | | | | | | | CalcFor | | | | | | | | | | | | | | | | | | Faroese | | | | | | | [...] + + + + | Calcium | 8.6 | mg/dL | | 8.5-10.1 | 08/27/18 | 08/27/18 | | | Level | | | | | 10:20am | 11:05am | | + +--------+ +-------+ + + + + | Total | 7.1 | g/dL | | 6.4-8.2 | 08/27/18 | 08/27/18 | | | Protein | | | | | 10:20am | 11:05am | | + +--------+ +-------+ + + + + | Albumin | 3.7 | g/dL | | 3.4-5.0 | 08/27/18 | 08/27/18 | | | | | | | | 10:20am | 11:05am | | + +--------+ +-------+ + + + + | Globulin | 3.4 | g/dL | | 2.2-4.0 | 08/27/18 | 08/27/18 | | | | | | | | 10:20am | 11:05am | | + +--------+ +-------+ + + + + | Albumin/ | 1.1 | | | 0.8-1.8 | 08/27/18 | 08/27/18 | | | Globulin | | | | | 10:20am | 11:05am | | | Ratio | | | | | | | | + +--------+ +-------+ + + + + | Total | 1.5 | mg/dL | H | 0.1-1.0 | 04/29/19 | 08/27/18 | | | Bilirubi | | | | | 10:20am | 11:05am | | | n | | | | | | | | + +--------+ +-------+ + + + + | Alkaline | 54 | U/L | | 50-136 | 08/27/18 | 08/27/18 | | | | | | | | 10:20am | 11:05am | | | Phosphat | | | | | | | | | ase | | | | | | | | + +--------+ +-------+ + + + + | Aspartat | 62 | U/L | H | 12-37 | 08/27/18 | 08/27/18 | | | e Amino | | | | | 10:20am | 11:05am | | | Transf | | | | | | | | | (AST/SGO | | | | | | | | | T) | | | | | | | | + +--------+ +-------+ + + + + | Alanine | 58 | U/L | | 12-78 | 08/27/18 | 08/27/18 | | | Aminotra | | | | | 10:20am | 11:05am | | | nsferase | | | | | | | | | | | | | | | | | | (ALT/SGP | | | | | | | | | T) | | | | | | | | + +--------+ +-------+ + + + + | Prothrom | 12.6 | Sec | H | 9.7-11.5 | 08/26/18 | 08/26/18 | | | bin Time | | | | | 3:45pm | 4:12pm | | + +--------+ +-------+ + + + + | INR | 1.21 | | | | 08/26/18 | 08/26/18 | RECOMMEN | | Internat | | | | | 3:45pm | 4:12pm | DED | | ional | | | | | | | RANGES | | Normaliz | | | | | | | FOR | | ed Ratio | | | | | | | PROTIME | | | | | | | | | INR: | | | | | | | | | 2.0 - | | | | | | | | | 3.0 for | | | | | | | | | most | | | | | | | | | medical | | | | | | | | | and | | | | | | | | | surgical | | | | | | | | | | | | | | | | | | thromboe | | | | | | | | | mbolic | | | | | | | | | states. | | | | | | | | | 2.5 - | | | | | | | | | 3.5 for | | | | | | | | | artifici | | | | | | | | | al heart | | | | | | | | | valves | | | | | | | | | and | | | | | | | | | recurren | | | | | | | | | t | | | | | | | | | embolism | | | | | | | | | . | + +--------+ +-------+ + + + + | Troponin | <0.015 | ng/mL | | 0.000-0. | 08/26/18 | 08/26/18 | | | | | | | 040 | 3:45pm | 4:22pm | | + +--------+ +-------+ + + + + | B-Type | 21 | pg/mL | | 0-100 | 08/26/18 | 08/26/18 | | | Natriure | | | | | 3:45pm | 4:40pm | | | tic | | | | | | | | | Peptide | | | | | | | | + +--------+ +-------+ + + + + Procedures No Known History of Procedures. Encounters + + + + + + | Encounter | Location | Arrival/Admit | Discharge/Depar | Attending | | | | Date | t Date | Provider | + + + + + + | Departed | [facility] | 08/27/18 8:39am | 08/27/18 3:04pm | Harsha Crabtree MD | | Emergency | [facility] | | | | + + + + + + | Departed | [facility] | 08/26/18 3:14pm | 08/26/18 4:40pm | Malachi Pimentel | | Emergency | [facility] | | | MD | + + + + + + + + + | Encounter Diagnosis | Onset Date | + + + | Gastroenteritis | | + + + | Hypokalemia | | + + +"
--- OUTSIDE RECORDS SUMMARY | ~2019-09-25 | XMS | Clinical Summary ---
Demographics + + + | Address | [address] | | | [place] [address] | + + + | Home Phone | ;ext=[phone] | + + + | Preferred Language | Unknown | + + + | Marital Status | U | + + + | Synagogue Affiliation | Unknown | + + + | Race | White | + + + | Ethnic Group | Not or | + + + Author + + + | Author | Tommy Cheng | + + + | Organization | [facility] | + + + | Address | [address] | | | [place] [address] | + + + | Phone | Unavailable | + + + Care Team Providers + +------+ + | Care Cleater Name | Role | Phone | + [...] tion | | +---------+---------+---------+---------+---------+---------+---------+---------+---------+ | ANEMIA | [id number] | | Active | | Florecita | | Anemia | | | | 00 | / | | / | Suhr | | | | | | (SNOMED | | | | FLOWER PICKER-C | | | | | | CT) | | | | | | | | +---------+---------+---------+---------+---------+---------+---------+---------+---------+ | APHTHOU | [id number] | | Active | | Luis | | Rosales | | | S ULCER | 05 | / | | /21 | page Pimentel | | s ulcer | | | OF | (SNOMED | | | | MA | | of | | | MOUTH | CT) | | | | | | mouth | | +---------+---------+---------+---------+---------+---------+---------+---------+---------+ | DIFFICU | [id number] | | Active | | Bobby | | Walking | | | LTY IN | 08 | /20 | | /20 | Hersche | | | | | WALKING | (SNOMED | | | | r DO | | disabil | | | | CT) | | | | | | ity | | +---------+---------+---------+---------+---------+---------+---------+---------+---------+ | TOTAL | [id number] | | Active | | Florecita | | Total | | | HIP | 7 | /17 | | /17 | Suhr | | replace | | | ARTHROP | (SNOMED | | | | FLOWER PICKER-C | | ment of | | | [...] , | -CM) | | | | FLOWER PICKER-C | | osteoar | | | LOCALIZ [...] | | | +---------+---------+---------+---------+---------+---------+---------+---------+---------+ | FOOT | [id number] | | Resolve | | Florecita | | Foot | | | PAIN, | 7 | / | d | /15 | Suhr | | pain | | | RIGHT | (SNOMED | | | | FL[facility]ICKER-C | | | | | | CT) | | | | | | | | +---------+---------+---------+---------+---------+---------+---------+---------+---------+ | RECTAL | [id number] | | Resolve | | Florecita | | Rectal | per | | BLEEDIN | 2 | /15 | d | /15 | Suhr | | hemorrh | Sacred | | G | (SNOMED | | | | [facility]ER-C | | age | Heart | | | CT) | | | | | | | [facility] | | | | | | | | | | nd ER | | | | | | | | | | visit | | | | | | | | | | 05/11/14 | +---------+---------+---------+---------+---------+---------+---------+---------+---------+ | ANAL | [id number] | | Resolve | | Florecita | | Anal | per | | FISSURE | 6 | /30 | d | /30 | Suhr | | fissure | Alexander | | | (SNOMED | | | | [facility]ICKER-C | | | [place] | | | CT) | | | | | | | MD | +---------+---------+---------+---------+---------+---------+---------+---------+---------+ | NEW | [id number] | | Resolve | | Florecita | | Procedu | | | PATIENT | 03 | /24 | d | /24 | Suhr | | re | | | | (SNOMED | | | | FL[facility]ICKER-C | | carried | | | CONSULT | CT) | | | | | | out on | | | ATION | | | | | | | | | | | | | | | | | subject | | +---------+---------+---------+---------+---------+---------+---------+---------+---------+ | AVASCUL | [id number] | | Active | | Prabhakar | [...] femur | | +---------+---------+---------+---------+---------+---------+---------+---------+---------+ | URI | [id number] | | Inactiv | | Loraine | [...] on | | +---------+---------+---------+---------+---------+---------+---------+---------+---------+ | HYPERTE | [id number] | | Active | | Rudy | | Hyperte | | | NSION | 3 | /24 | | /24 | Monteir | | nsive | | | | (SNOMED | | | | o MD | | disorde | | | | CT) | | | | | | r | | +---------+---------+---------+---------+---------+---------+---------+---------+---------+ | ELEVATE | [id number] | | Active | | Rudy | | Hypergl | | | D BLOOD | 7 | /24 | | /24 | Monteir | | ycemia | | | SUGAR | (SNOMED | | | | o MD | | | | | | CT) | | | | | | | | +---------+---------+---------+---------+---------+---------+---------+---------+---------+ | NEW | [id number] | | Removed | | Rudy | [...] subject | | +---------+---------+---------+---------+---------+---------+---------+---------+---------+ | SCREENI | [id number] | | Resolve | | Rudy | [...] ng | | +---------+---------+---------+---------+---------+---------+---------+---------+---------+ | SCREENI | [id number] | | Resolve | | Rudy | [...] ng | | +---------+---------+---------+---------+---------+---------+---------+---------+---------+ | NICOTIN | [id number] | | Active | | Prabhakar | | Nicotin | | | E | 8 | | | | | | e | | | ADDICTI | (SNOMED | | | | VanMarinero | | depende | | | ON | CT) | | | | oy MD | | nce | | +---------+---------+---------+---------+---------+---------+---------+---------+---------+ | ASEPTIC | 6941578 | | Inactiv | | Ann | [...] hip | | +---------+---------+---------+---------+---------+---------+---------+---------+---------+ | URI | [id number] | | Inactiv | | Phan | | Upper | | | | 9 | / | e | /19 | Middlek | | respira | | | | (SNOMED | | | | auff | | tory | | | | CT) | | | | FLOWER [facility]ICKER | | infecti | | | | | | | | | | on | | +---------+---------+---------+---------+---------+---------+---------+---------+---------+ | SORE | [id number] | | Inactiv | | Phan | | Pain in | | | THROAT | 03 | / | e | / | Middlek | | throat | | | | (SNOMED | | | | auff | | | | | | CT) | | | | [facility]ICKER | | | | +---------+---------+---------+---------+---------+---------+---------+---------+---------+ | OTHER | [id number] | | Active | | Prabhakar | [...] | | | +---------+---------+---------+---------+---------+---------+---------+---------+---------+ | OPIOID | [id number] | | Active | | Phan | | Nondepe | | | ABUSE, | 05 | /28 | | / | Middlek | | ndent | | | CONTINU | (SNOMED | | | | auff | | opioid | | | OUS | CT) | | | | FLOWER PICKER | | abuse, | | | | | | | | | | continu | | | | | | | | | | ous | | +---------+---------+---------+---------+---------+---------+---------+---------+---------+ | HIP | [id number] | | Active | | Phan | | Hip | | | PAIN, | 2 | / | | / | Middlek | | pain | | | LEFT | (SNOMED | | | | auff | | | | | | CT) | | | | [facility]ICKER | | | | +---------+---------+---------+---------+---------+---------+---------+---------+---------+ | UPPER | [id number] | | Inactiv | | Malachi Levin | | Viral | | | RESPIRA | | | e | | Dey | | upper | | | TORY [...] on | | +---------+---------+---------+---------+---------+---------+---------+---------+---------+ | BRACHIA | [id number] | | Inactiv | | Malachi Levin [...] | | | +---------+---------+---------+---------+---------+---------+---------+---------+---------+ | RIB | 9442859 | | Inactiv | | Malachi Levin | | Rib | | | PAIN | | | | Dye | | pain | | | | (SNOMED | | | | ACNP | | | | | | CT) | | | | | | | | +---------+---------+---------+---------+---------+---------+---------+---------+---------+ | LESION | [id number] | | Active | | Clementina | [...] | | | +---------+---------+---------+---------+---------+---------+---------+---------+---------+ | ANAL | 6722950 | | Removed | | Karissa | | Anal | per Dr. | | FISSURE | 6 | / | | / | Sea | | fissure | Alexander | | | (SNOMED | | | | RN | | | [place] | | | CT) | | | | | | | MD | +---------+---------+---------+---------+---------+---------+---------+---------+---------+ | RECTAL | 7049922 | | Removed | | Rodrigo | [...] | 05/11/14 | +---------+---------+---------+---------+---------+---------+---------+---------+---------+ | SCREENI | 3078893 | | Removed | | Juan | [...] ng | | +---------+---------+---------+---------+---------+---------+---------+---------+---------+ | SCREENI | 3432381 | | Removed | | Andriy | | Alcohol | | | NG FOR | | / | | | Padovic | | | | | ALCOHOL | (SNOMED | | | | h FLOWER PICKER | | consump | | | ISM | CT) | | | | | | tion | | | | | | | | | | screeni | | | | | | | | | | ng | | +---------+---------+---------+---------+---------+---------+---------+---------+---------+ | FOOT | [id number] | | Removed | | Skye | | Foot | | | PAIN, | 7 | /15 | | /15 | Epifanio | | pain | | | RIGHT | (SNOMED | | | | [facility]ER | | | | | | CT) [...] | 1 | | | BISACODYL | 6289507170 | Florecita | | 10 MG | suppositor | | | | 0 | Suhr FLOWER PICKER-C | | SUPP | y QHS PRN [...] | | | | | | | FLOWER PICKER | + + + + + + + + | MIRALAX | 17grams | | | POLYETHYLE | [id number] | Melvina | | POWD | mixed [...] Take three | | | BENZONATAT | [id number] | Karma | | PERLES 100 | [...] | three | | | IBUPROFEN | 6718640746 | Prabhakar | | 600 MG | times per | | | | 6 | VanAnrooy | | TABS | day | | | | | MD | + + + + + + + + | AMBERDERM | Apply prn | | | BALSAM | 8772979836 | Bobby | | 650-72.5 | to lower | | | JOSEPH-GEOVANY | 3 | [place] | | MG/0.82ML | lip for | [...] | | | RSBG | | Suhr FLOWER PICKER-C | + + + + + + + + | CEPACOL | 1 lozenge | | | BENZOCAINE | 1726876533 | Karma | | SORE | every [...] | | | PAIN | | Cyndi Walton | | AGREEMENT | 1.2.15 | | | AGREEMENT | | NCMA | | D RATHER | | | | D RATHER | | | + + + + + + + + | UDS | 1.2.15 | | | UDS | | Cyndi Walton | | | consistent | | | | | NCMA | + + + + + + + + | TYLENOL 8 | 1 tablet | | | ACETAMINOP | 8967946026 | Bobby | | HOUR | every 4 | | | HEN | 1 | [place] | | ARTHRITIS | hours as | [...] cap BID | | | DOCUSATE | [id number] | Florecita | | MG CAPS | | | | SODIUM | 0 | Suhr FLOWER PICKER-C | + + + + + + [...] tab BID | | | CYCLOBENZA | [id number] | Florecita | | YESSY HCL | PRN muscle | | | YESSY HCL | 0 | Suhr FLOWER [facility]ICKER-C | | 10 MG TABS | pain [...] | | | | | | | zUma | | | | | | | | MD | + + + + + + + + | TRAMADOL | 1 TAB Q6 | | | TRAMADOL | 3440204263 | Rudy | | HCL 50 MG | HRS PRN | | | HCL | 0 | Yaquelin | | TABS | PAIN | | | | | MD | + + + + + + + + | NORCO | 1 every 8 | | | HYDROCODON | 0664817105 | Rudy | | 5-325 MG | hours as | | | E-ACETAMIN | 1 | Yaquelin | | TABS | needed | | | OPHEN | | MD | + + + + + + + + | CLINDAMYCI | 1 tab by | | | CLINDAMYCI | 9333266966 | Tommy | | N HCL 150 [...] tab po | | | HYDROCODON | 7261840973 | Karma | | 5-325 MG | QD | | | E-ACETAMIN | 1 | Berenice MA | | TABS | | | | OPHEN | | | + + + + + + + + | COMPRESSIO | put on in | | | COMPRESSIO | | Melvina | | N HOSPage | the | | | N HOSPage | | Margarito CONRAD | | MEN'S | morning | | | MEN'S | | | | | and take | | | | | | | | off at | | | | | | | | bedtime | | | | | | + + + + + + + + | PROAIR HFA | Inhale 2 | | | ALBUTEROL | [id number] | Phan | | 108 (90 | puffs | | | SULFATE | 2 | Middlekauf | | Base) | every 4 | | | | | f FLOWER PICKER | | MCG/ACT | hours as | [...] tab q | | | OXYCODONE- | [id number] | Florecita | | 7.5-325 MG | 4 hrs for | | | ACETAMINOP | 0 | Suhr FLOWER PICKER-C | | TABS | pain, hold | [...] po bid | | | HYDROCODON | 0298236084 | Cyndi Crowley | | E-ACETAMIN | [...] 4-6 per | | | HYDROCODON | 4524862003 | Karma | | 5-325 MG | day | | | E-ACETAMIN | 1 | Berenice MA | | TABS | | | | OPHEN | | | + + + + + + + + | OXYCODONE | 3-4 per | | | OXYCODONE | 4635209739 | Karma | | HCL 10 MG | day | | | HCL | 8 | Berenice CONRAD | | TABS | | | | | | | + + + + + + + + | OXYCODONE | 1 tab q 4 | | | OXYCODONE | 2659098266 | Karma | | HCL 15 MG | hrs PRN | | | HCL | 1 | Berenice CONRAD | | TABS | pain | | | | | | + + + + + + + + | HYDROCODON | Take 1 tab | | | HYDROCODON | 3476418662 | Melvina | | E-ACETAMIN | po [...] 1 tab | | | TRAMADOL | 1281193963 | Karma | | HCL 50 MG [...] 1 tab | | | GUAIFENESI | 9828977467 | Karma | | N 400 MG [...] 2tabs po | | | VARENICLIN | 2489768765 | Rudy | | MG TABS | qd | | | E TARTRATE | 6 | Yaquelin | | | | | | | | MD | + + + + + + + + | OXYCODONE- | Take 1 tab | | | OXYCODONE- | 4849474684 | Phan | | ACETAMINOP | by mouth | | | ACETAMINOP | 6 | Middlekauf | | HEN 5-325 | three | | | HEN | | f FLOWER PICKER | | MG TABS | times per [...] 1 tab | | | PSEUDOEPHE | 3625025934 | Phan | | DRINE HCL | by mouth | | | DRINE HCL | 0 | Middlekauf | | 30 MG TABS | four times | | | | | f FLOWER PICKER | | | per day | | [...] Inhale 2 | | | ALBUTEROL | 6807722884 | Malachi K | | 108 (90 [...] Take 1 | | | DOXYCYCLIN | 9699104542 | Malachi Levin | | E HYCLATE [...] 4-6 per | | | HYDROCODON | 8762135270 | Prabhakar | | 5-325 MG | day | | | E-ACETAMIN | 1 | VanAnrooy | | TABS | | | | OPHEN | | MD | + + + + + + + + | MOBIC 7.5 | 1 tablet | | | MELOXICAM | 8402844388 | Phan | | MG TABS | by mouth | | | | 5 | Middlekauf | | | daily. | | | | | f FLOWER PICKER | | | Must last | | | | | | | | 30 days. | | | | | | + + + + + + + + | CLINDAMYCI | 1 tab by | | | CLINDAMYCI | 7654652841 | Malachi K | | N HCL [...] | prn | | | MAGNESIUM | 4581693811 | Melvina | | OF | constipati [...] By mouth | | | IBUPROFEN | 1637537418 | Andriy | | 200 MG | 3 times a | | | | 8 | Padovich | | TABS | day | | | | | FLOWER PICKER | + + + + + + + + | UDS | 1.2.15 | | | UDS | | Prabhakar | | | consistent | | | | | Uzma | | | | | | | | MD | + + + + + + + + | CHANTIX 1 | 1 tab two | | | VARENICLIN | 2898264720 | Karma | | MG TABS | times per | | | E TARTRATE | 6 | Berenice MA | | | day | | | | | | + + + + + + + + | HYDROCODON | Take 1 tab | | | HYDROCODON | 8343573520 | Karma | | E-ACETAMIN | po | | | E-ACETAMIN | 2 | Berenice MA | | OPHEN | BID/PRN | | | OPHEN | | | | 7.5-325 MG | | | | | | | | TABS | | | | | | | + + + + + + + + | COUMADIN 4 | 1 tab | | | WARFARIN | 6927041917 | Florecita | | MG TABS | daily | | | SODIUM | 0 | Suhr FLOWER PICKER-C | + + + + + + + + | IBUPROFEN | three | | | IBUPROFEN | 4627791427 | Rudy | | 600 MG | times per | | | | 6 | Yaquelin | | TABS | day | | | | | MD | + + + + + + + + | OXYCODONE | 3-4 per | | | OXYCODONE | 0581976382 | Rudy | | HCL 10 MG | day | | | HCL | 8 | Yaquelin | | TABS | | | | | | MD | + + + + + + + + | CHANTIX 1 | take 1tab | | | VARENICLIN | 6250295633 | Rudy | | MG TABS | po daily | | | E TARTRATE | 6 | Yaquelin | | | | | | | | MD | + + + + + + + + | LISINOPRIL | 1 tab one | | | LISINOPRIL | 1242797783 | Rudy | | 20 MG | time per | | | | 4 | Yaquelin | | TABS | day | | | | | MD | + + + + + + + + | TRAMADOL | 1 TAB BID | | | TRAMADOL | 4663268267 | Rudy | | HCL 50 MG | PRN PAIN | | | HCL | 0 | Yaquelin | | TABS | | | | | | MD | + + + + + + + + | NORCO | 1tab by | | | HYDROCODON | 9829278721 | Rudy | | 7.5-325 MG | [...] TAB Q6 | | | TRAMADOL | 6956011611 | Prabhakar | | HCL 50 MG | HRS PRN | | | HCL | 0 | Adrianrooy | | TABS | PAIN | | | | | MD | + + + + + + + + | NORCO | 1tab po | | | HYDROCODON | 4027520136 | Rudy | | 7.5-325 MG | [...] tab po | | | HYDROCODON | 5585639457 | Rudy | | 5-325 MG | QD | | | E-ACETAMIN | 1 | Yaquelin | | TABS | | | | OPHEN | | MD | + + + + + + + + | TRAMADOL | take 1 tab | | | TRAMADOL | 9498303801 | Rudy | | HCL 50 MG | nightly | | | HCL | 0 | Yaquelin | | TABS | | | | | | MD | + + + + + + + + | NORCO | 1 every 8 | | | HYDROCODON | 8887735226 | Prabhakar | | 5-325 MG | hours as | | | E-ACETAMIN | 1 | VanAnrooy | | TABS | needed | | | OPHEN | | MD | + + + + + + + + | OXYCODONE | 1 tab q 4 | | | OXYCODONE | 8169774699 | Florecita | | HCL 15 MG | hrs PRN | | | HCL | 1 | Suhr FLOWER PICKER-C | | TABS | pain | | | | | | + + + + + + + + | [facility] LYSINE | take 1 tab | | | LYSINE | 4593160718 | Rudy | | 1000 MG | [...] tab q | | | OXYCODONE- | 1394939714 | Florecita | | 7.5-325 MG | 4 hrs for | | | ACETAMINOP | 0 | Suhr FL[facility]ICKER-C | | TABS | pain, hold | | | HEN | | | | | if | | | | | | | | somnolent | | | | | | | | or asleep. | | | | | | + + + + + + + + | PERCOCET | 1-2 tab q | | | OXYCODONE- | 8193478895 | Florecita | | 7.5-325 MG | 4 hrs PRN | | | ACETAMINOP | 0 | Suhr FL[facility] PICKER-C | | TABS | pain, | | | HEN | | | | | dispense | | | | | | | | #84 | | | | | | + + + + + + + + | TESSALON | Take three | | | BENZONATAT | 5458465139 | Loraine | | RACHEL 100 | [...] 1tab po | | | VARENICLIN | 4674006901 | Ruyd | | MG TABS | bid | | | E TARTRATE | 6 | Yaquelin | | | | | | | | MD | + + + + + + + + | HYDROCODON | Take 1 tab | | | HYDROCODON | 7075454939 | Rudy | | E-ACETAMIN | po [...] po qd | | | LISINOPRIL | 4014731615 | Rudy | | 20 MG | | | | | 1 | Yaquelin | | TABS | | | | | | MD | + + + + + + + + | TRAMADOL | 1 TAB Q6 | | | TRAMADOL | 4911565624 | Prabhakar | | HCL 50 MG | HRS PRN | | | HCL | 0 | VanAnrooy | | TABS | PAIN | | | | | MD | + + + + + + + + | CEPACOL | 1 lozenge | | | BENZOCAINE | 9098806369 | Phan | | SORE | every 2 | | | -MENTHOL | 0 | Middlekauf | | THROAT | hours as | | | | | f FLOWER PICKER | | 10-2.1 MG | needed for | | | | | | | LOZG | sore | | | | | | | | throat | | | | | | + + + + + + + + | GUAIFENESI | 1 tab | | | GUAIFENESI | 6904877867 | Phan | | N 400 MG | every 4 | | | N | 0 | Abeluf | | TABS | hours as | | | | | f FLOWER PICKER | | | needed for | | | | | | | | | | | | | | | | cough/yaw | | | | | | | | estion | | | | | | + + + + + + + + | PSEUDOEPHE | Take 1 tab | | | PSEUDOEPHE | 7590808788 | Malachi Levin | | DRINE HCL [...] Take 3 | | | PREDNISONE | 9990856860 | Malachi K | | 20 MG [...] Take 1 | | | GABAPENTIN | 8813680128 | Malachi Levin | | 300 MG [...] 1 tab | | | CYCLOBENZA | 4851225003 | Malachi Levin | | YESSY HCL [...] 1 tab | | | OXYCODONE- | 4177553488 Seb Ly K | | ACETAMINOP | by mouth | [...] po bid | | | HYDROCODON | 3157835058 | Tommy | | E-ACETAMIN | prn [...] 1 tablet | | | MELOXICAM | 2649804207 | Jovany | | MG TABS | [...] | | | | | | | FLOWER PICKER | + + + + + + [...] | | | | | | | FLOWER PICKER | +---------+ + + + + + | CODEINE | Itch | | Critical | No Longer | Skye | | | | | | Active | Epifanio FLOWER PICKER | +---------+ + + + + + | SULFA | Break out in | | Critical | | Skye | | | lahson | | | | Epifanio FLOWER PICKER | +---------+ + + + + + [...] + + +--------+ +---+---+ + | | VT | 156 | ms | | | VT | | | INTERVAL | | | [...] SGPT (ALT) | 41 | U/L | | N | alanine | | | [...] +---+ + + + | Office Visit: RELIEF MANAGER 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- lft hip pain | + [...] Sed Rate, Clarisa | + + + +-----+---+------+------+---+ + | [...] | | | Dietary | | | INDUSTRIAL RECRUITER | | | | | management | [...] +---------+---------+---+---+---+ + + + | Rx Refill: Francx Request for CHANTIX 1MG TABS | + + + +--------+ +---+---+---+ + | | [facility]_RR | [id number] | | | B | e-scripts | [...] | | | | | | | [id number]` | | | | | | | | [id number] | | | | | | | [...] + + + + | Appointment | 03:15 PM | Mariahthania BEASLEY, [address] | | | | [facility] [address], | | | | [place], [address], | | | | | + + + + | Appointment | 10:40 AM | Prabhakar Gusman MD, [address] | | [address], | | | | [place], [address], | + + + + | Referral | | Podiatry Consult | | | | [facility], | | | | [address], | | | | [place], [address] | | | | | + + [...] | Pending order | | MR Oswald-BRITTANY Con-Lt | + + + + | Pending order | | XR Foot 2V-Rt | + + + + | Pending order | | XR Foot 2V-Rt | + + + + Procedures + + + + + | Code | Procedure Name | Date | Entry Date | + + + + + | CPT-88036 | Theraputic | | | | | Injection (IM/SubQ) | | | + + + + + | CPT-J1885 | Toradol 15mg | | | + + + + + | CPT-63782 | Urine Toxicology | | | | | Screen, Multiple | | | | | Drug Classes by | | | | | Direct Optical | | | | | Observation | | | + + + + + | CPT-51607 | Theraputic | | | | | Injection (IM/SubQ) | | | + + + + + | CPT-J1885 | Toradol 15mg | | | + + + + + | CPT-62018 | Theraputic | | | | | Injection (IM/SubQ) | | | + + + + + | CPT-J1885 | Toradol 15mg | | | + + + + + | CPT-24816 | Theraputic | | | | | Injection (IM/SubQ) | | | + + + + + | CPT-J1885 | Toradol 15mg | | | + + + + + | CPT-73463 | XR Hip W/Pelvis | | | | | 2-3V-Lt | | | + + + + + | CBC AUTO 20543 | CBC w/ Auto Diff | | | + + + + + | CPT-74989 | XR Hip W/Pelvis | | | | | 2-3V-Lt | | | + + + + + | CBC AUTO 69751 | CBC w/ Auto Diff | | | + + + + + | M NOS MRSA 88779 | Nose Culture, MRSA | | | | | Only | | | + + + + + | CHEM 8 38619 | Basic Metabolic | | | | | Panel | | | + + + + + | CPT-88877 | Health Risk | | | | | Assessment | | | + + + + + | GLYCO HGB 80075 | Glyco Hemoglobin, | | | | | A1C | | | + + + + + | CPT-72623 | Health Risk | | | | | Assessment | | | + + + + + | CPT-45593 | Health Risk | | | | | Assessment | | | + + + + + | U NICOTINE 84529 | Cotinine | | | + + + + + | 03088 | MR Hip-WO Con-Lt | | | + + + + + | CPT-41843 | XR Hip W/Pelvis | | | | | 2-3V-Lt | | | + + + + + | CPT- 57124 | Administration | | | | | (05602) | | | + + + + + | CPT-J1885 | Toradol Inj. 60mg | | | + + + + + | CPT-23394 | Urine Tox, multiple | | | | | drug classes | | | + + + + + | 29467 | XR Foot 2V-Rt | | | + + + + + | [id number] | [Recorded for CQM] | | | | | Pedal pulse taking | | | | | (procedure) | | | + + + + + | [id number] | [Recorded for CQM] | | | | | Documentation of | | | | | current medications | | | | | (procedure) | | | + + + + + | [id number] | [Recorded for CQM] | | | | | Health-related | | | | | behavior | | | + + + + + | [phone] | [facility] Generic Patient | | | | | Encounter Service | | | | | (from patch) | | | + + + + + | [id number] | [Recorded for CQM] | | | | | Pedal pulse taking | | | | | (procedure) | | | + + + + + | [id number] | [Recorded for CQM] | | | | | Documentation of | | | | | current medications | | | | | (procedure) | | | + + + + + | [phone] | [Recorded for CQM] | | | | | Drug or Medication | | | + + + + + | [id number] | [Recorded for CQM] | | | | | Details of drug | | | | | misuse behavior | | | + + + + + | [phone] | [Recorded for CQM] | | | | | Never smoker | | | + + + + + | [phone] | [Recorded for CQM] | | | | | Never smoked | | | | | tobacco (finding) | | | + + + + + | [phone] | [Recorded for CQM] | | | | | Tobacco use and | | | | | exposure | | | + + + + + | [id number] | [Recorded for CQM] | | | | | Alcohol intake | | | + + + + + | [id number] | [Recorded for CQM] | | | | | Allergy | | | + + + + + | [phone] | [Recorded for CQM] | | | | | Alcohol intake | | | + + + + + | [id number] | [Recorded for CQM] | | | | | Tobacco use and | | | | | exposure | | | + + + + + | [id number] | [Recorded for CQM] | | | | | Details of drug | | | | | misuse behavior | | | + + + + + | [phone] | [Recorded for CQM] | | | | | Drug or Medication | | | + + + + + | [id number] | [Recorded for CQM] | | | | | Current Light | | | | | tobacco smoker | | | + + + + + | [id number] | [Recorded for CQM] | | | | | Light tobacco | | | | | smoker (finding) | | | + + + + + | [phone] | [Recorded for CQM] | | | | | Documentation of | | | | | current medications | | | | | (procedure) | | | + + + + + | [id number] | [Recorded for CQM] | | | | | Pedal pulse taking | | | | | (procedure) | | | + + + + + | [phone] | XR Foot 2V-Rt | | | [...]
--- OUTSIDE RECORDS SUMMARY | ~2019-09-25 | XMS | Continuity of Care Document ---
Demographics + + + | Address | NO PERMANENT ADDRESS | | | [place] [address] | + + + | Home Phone | | + + + | Preferred Language | Unknown | + + + | Marital Status | Unknown | + + + | Advent Affiliation | Unknown | + + + | Race | Unknown | + + + | Ethnic Group | Unknown | + + + Author + + + | Author | [facility] | + + + | Organization | [facility] | + + + | Address | [address] | | | [place] [address] | + + + | Phone | Unavailable | + + + Support + + + + + | Name | Relationship | Address | Phone | + + + + + | Bobby Garcia DO | Caregiver | [address] | | | | | [place] [address] | | + + + + + | JAYME KIRK | Next Of Kin | [place] [address] | | + + + + + Care Team Providers + + + + | Care Astronomy Instructor Name | Role | Phone | + + + + | Rudy Jamison MD | Unavailable | | + + + + Insurance Providers + + + + + | Payer Name | Policy Number | Subscriber Name | Relationship | + + + + + | DCHARISH/OHP | [id number] | BOBBY STODDARD | SELF | + + + + + Problems Active Medical Problems [...] | Hydrocod | 1 | EACH | PO | Every 6 | 5 | | 08/15/16 | | one/Apap | | | | Hours | | | | | 5-325 | | | | | | | | | MG | | | | | | | | | ([place] | | | | | | | | | 5-325 | | | | | | | | | MG) 1 | | | | | | | | | EACH | | | | | | | | | TABLET | | | | | | | | + +------+-------+-------+ + + + + | Lisinopr | 20 | MG | PO | Daily | | | | | il | | | | | | | | | (Zestril | | | | | | | | | ) 20 MG | | | | | | [...] 5 Mg | | | | | Po | | | | + + [...] + + + | Hydrocodone/Acetami | Q6H PRN PAIN | Unknown | Discontinued | | nophen 7.5-300 Mg | | | | | (Vicodin Es 7.5-300 | | | | | Mg) 1 Each Tablet | | | | | Tablet, 1 Each Po | | | | + + + + + | Hydrocodone | Every 4 Hours as | 01/13/15 | Discontinued | | Bit/Acetaminophen | Needed PRN PAIN | | | | ([place] 5-325 | | | | | Tablet) 1 Each | | | | | Tablet Tablet, 1-2 | | | | | Tab Po | | | | + + + + + | Hydrocodone/Acetami | | Unknown | Discontinued | | nophen ([place] | | | | | 5MG-325MG) 5 [...] Mg | Pain | | | | ([place] 10-325 Mg) | | | | | [...] 600 | | | | | Mg Po | | | | + + + + + | Ibuprofen (Motrin) | Three Times a Day | 05/20/16 | Discontinued | | 800 Mg Tab Tab, 800 | PRN Pain | | | | Mg Po | [...] | | | | Tab, 220 Mg Po | | | | + [...] 10 Mg | Four Times a Day | Unknown | Discontinued | | Tablet Tablet, 10 | PRN PAIN | | | | Mg Po | [...] 1 Mg | | | | | Po | | | | + + [...] No hospital discharge instructions. Plan of Care No plan of care. Functional Status No functional status results. Allergies, Adverse Reactions, Alerts + +---------+ + +--------+ + | Allergen | Type | Severity | Reaction | Status | Last Updated | + +---------+ + +--------+ + | Sulfa | Allergy | Unknown | ANAPHYLAXIS, | Active | 08/15/16 | | (Sulfonamide | | | HIVES [...] Right Arm | + + + + Results No known relevant diagnostic tests, laboratory data and/or discharge summary. Procedures No Known History of Procedures. Encounters + + + + + + | Encounter | Location | Arrival/Admit | Discharge/Depar | Attending | | | | Date | t Date | Provider | + + + + + + | Discharged | [facility] | 08/04/16 | 08/28/16 | Bobby Garcia | | Recurring | [facility] [place] | 12:02pm | | M DO | + + + + + + + + + | Encounter Diagnosis | Onset Date | + + + | Bronchitis | | + + + | Tobacco use disorder | | + + + | Cough | | + + + | SOB (shortness of breath) | | + + + | Rectal fissure | | + + + | Fall | | + + + | Contusion, hip | | + + + | Pancreatitis | | + + + | Hip pain | | + + + | Avascular necrosis of bones of both hips | | + + + | Arthritis | | + + + | Knee pain | | + + +"
--- OUTSIDE RECORDS SUMMARY | ~2019-09-25 | XMS | Clinical Summary ---
Demographics + + + | Address | [address] | | | [place] [address] | + + + | Home Phone | | + + + | Preferred Language | Unknown | + + + | Marital Status | S | + + + | Christianity Affiliation | Unknown | + + + | Race | White | + + + | Ethnic Group | Not or | + + + Author + + + | Author | [facility] | + + + | Organization | [facility] | + + + | Address | [address] | | | [place] [address] | + + + | Phone | Unavailable | + + + Care Team Providers + +------+ + | Care Manager Retail Sales Name | Role | Phone | + [...] tion | | +---------+---------+---------+---------+---------+---------+---------+---------+---------+ | CONTROL | [id number] | | Active | | Marisel | | Drug | | | LED | 03 | /19 | | /19 | Rubio | | therapy | | | SUBSTAN | (SNOMED | | | | AIRPLANE DESIGNER | | | | | CE | CT) | | | | | | finding | | | AGREEME | | | | | | | | | | NT | | | | | | | | | | SIGNED | | | | | | | | | +---------+---------+---------+---------+---------+---------+---------+---------+---------+ | NASAL | [id number] | | Active | | Marisel | | Mass of | | | MASS | 09 | /19 | | /19 | Rubio | | nose | | | | (SNOMED | | | | AIRPLANE DESIGNER | | | | | | CT) | | | | | | | | +---------+---------+---------+---------+---------+---------+---------+---------+---------+ | COSTOCH | [id number] | | Active | | Marisel | | Costal | | | ONDRITI | 4 | / | | | Rubio | | chondri | | | S, LEFT | (SNOMED | | | | AIRPLANE DESIGNER | | tis | | | | CT) | | | | | | | | +---------+---------+---------+---------+---------+---------+---------+---------+---------+ | URI | [id number] | | Active | | Marisel | | Upper | | | | 9 | | | | Rubio | | respira | | | | (SNOMED | | | | AIRPLANE DESIGNER | | tory | | | | CT) | | | | | | infecti | | | | | | | | | | on | | +---------+---------+---------+---------+---------+---------+---------+---------+---------+ | RIB | [id number] | | Active | | Marisel | | Rib | | | PAIN ON | 02 | | | | Rubio | | pain | | | LEFT | (SNOMED | | | | AIRPLANE DESIGNER | | | | | SIDE | CT) | | | | | | | | +---------+---------+---------+---------+---------+---------+---------+---------+---------+ | POST- | [id number] | | Active | | Marisel | | Postvir | | | RAL | 04 | / | | / | Rubio | | al | | | COUGH | (SNOMED | | | | AIRPLANE DESIGNER | | cough | | | SYNDROM | CT) | | | | | | | | | E | | | | | | | | | +---------+---------+---------+---------+---------+---------+---------+---------+---------+ | EPISTAX | [id number] | | Active | | David | | Epistax | | | IS, | 1 | / | | | Chicker | | is | | | RECURRE | (SNOMED | | | | ing [place] | | | | | NT | CT) | | | | | | | | +---------+---------+---------+---------+---------+---------+---------+---------+---------+ | NASAL | [id number] | | Active | | David | | Nasal | | | POLYP | 5 | / | | | Chicker | | polyp | | | | (SNOMED | | | | ing [place] | | | | | | CT) | | | | | | | | +---------+---------+---------+---------+---------+---------+---------+---------+---------+ | BRONCHI | [id number] | | Active | | David | | Bronchi | | | TIS | 4 | /19 | | /19 | Chicker | | tis | | | | (SNOMED | | | | ing [place] | | | | | | CT) | | | | | | | | +---------+---------+---------+---------+---------+---------+---------+---------+---------+ | ACUTE | [id number] | | Active | | David | | Common | | | NASOPHA | 6 | /19 | | /19 | Chicker | | cold | | | RYNGITI | (SNOMED | | | | ing [place] | | | | | S | CT) | | | | | | | | +---------+---------+---------+---------+---------+---------+---------+---------+---------+ | ADJUSTM | [id number] | | Active | | Mariah | | Adjustm | | | ENT | 0 | / | | / | Victor | | [...] mood | | +---------+---------+---------+---------+---------+---------+---------+---------+---------+ | CHRONIC | [id number] | | Active | | Faina | | Chronic | | | PAIN | | / | | | [place] | | pain | | | SYNDROM | (SNOMED | | | | OSTOMY RN | | syndrom | | | E | CT) | | | | | | e | | +---------+---------+---------+---------+---------+---------+---------+---------+---------+ | PAIN | [id number] | | Active | | Faina | | Psychal | | | DISORDE | | / | | / | [place] | | urban | | | R | (SNOMED | | | | OSTOMY RN | | | | | ASSOCIA | [...] | | | +---------+---------+---------+---------+---------+---------+---------+---------+---------+ | ANEMIA | [id number] | | Active | | Florecita | | Anemia | | | | 00 | /27 | | /27 | Suhr | | | | | | (SNOMED | | | | AIRPLANE DESIGNER-C | | | | | | CT) | | | | | | | | +---------+---------+---------+---------+---------+---------+---------+---------+---------+ | APHTHOU | [id number] | | Active | | Charlen | | Aphthou | | | S ULCER | 05 | / | | /21 | e Pimentel | | s ulcer | | | OF | (SNOMED | | | | CCMA | | of | | | MOUTH | CT) | | | | | | mouth | | +---------+---------+---------+---------+---------+---------+---------+---------+---------+ | DIFFICU | [id number] | | Active | | Bobby | | Walking | | | LTY IN | 08 | /20 | | /20 | Hersche | | | | | WALKING | (SNOMED | | | | r DO | | disabil | | | | CT) | | | | | | ity | | +---------+---------+---------+---------+---------+---------+---------+---------+---------+ | TOTAL | [id number] | | Active | | Florecita | | Total | | | HIP | 7 | /17 | | /17 | Suhr | | replace | | | ARTHROP | (SNOMED | | | | AIRPLANE DESIGNER-C | | ment of | | | [...] , | -CM) | | | | AIRPLANE DESIGNER-C | | osteoar | | | LOCALIZ [...] | | | +---------+---------+---------+---------+---------+---------+---------+---------+---------+ | FOOT | [id number] | | Resolve | | Florecita | | Foot | | | PAIN, | 7 | /15 | d | /15 | Suhr | | pain | | | RIGHT | (SNOMED | | | | AIRPLANE DESIGNER-C | | | | | | CT) | | | | | | | | +---------+---------+---------+---------+---------+---------+---------+---------+---------+ | RECTAL | [id number] | | Resolve | | Florecita | | Rectal | per | | BLEEDIN | 2 | | d | /15 | Suhr | | hemorrh | Sacred | | G | (SNOMED | | | | AIRPLANE DESIGNER-C | | age | Heart | | | CT) | | | | | | | [facility] | | | | | | | | | | nd ER | | | | | | | | | | visit | | | | | | | | | | 05/11/14 | +---------+---------+---------+---------+---------+---------+---------+---------+---------+ | ANAL | [id number] | | Resolve | | Florecita | | Anal | per Dr. | | FISSURE | 6 | / | d | /30 | Suhr | | fissure | Alexander | | | (SNOMED | | | | AIRPLANE DESIGNER-C | | | [place] | | | CT) | | | | | | | MD | +---------+---------+---------+---------+---------+---------+---------+---------+---------+ | NEW | [id number] | | Resolve | | Florecita | | Procedu | | | PATIENT | 03 | /24 | d | /24 | Suhr | | re | | | | (SNOMED | | | | AIRPLANE DESIGNER-C | | carried | | | CONSULT | CT) | | | | | | out on | | | ATION | | | | | | | | | | | | | | | | | subject | | +---------+---------+---------+---------+---------+---------+---------+---------+---------+ | AVASCUL | [id number] | | Active | | Prabhakar | [...] femur | | +---------+---------+---------+---------+---------+---------+---------+---------+---------+ | URI | [id number] | | Inactiv | | Loraine | [...] on | | +---------+---------+---------+---------+---------+---------+---------+---------+---------+ | HYPERTE | [id number] | | Active | | Rudy | | Hyperte | | | NSION | 3 | /24 | | / | Monteir | | nsive | | | | (SNOMED | | | | o MD | | disorde | | | | CT) | | | | | | r | | +---------+---------+---------+---------+---------+---------+---------+---------+---------+ | ELEVATE | [id number] | | Active | | Rudy | | Hypergl | | | D BLOOD | 7 | / | | / | Monteir | | ycemia | | | SUGAR | (SNOMED | | | | o MD | | | | | | CT) | | | | | | | | +---------+---------+---------+---------+---------+---------+---------+---------+---------+ | NEW | [id number] | | Removed | | Rudy | | Procedu | | | PATIENT | 03 | /24 | | | Monteir | | re | | | | (SNOMED | | | | o MD | | carried | | | CONSULT | CT) | | | | | | out on | | | ATION | | | | | | | | | | | | | | | | | subject | | +---------+---------+---------+---------+---------+---------+---------+---------+---------+ | SCREENI | 5091312 | | Resolve | | Rudy | [...] ng | | +---------+---------+---------+---------+---------+---------+---------+---------+---------+ | SCREENI | 2359249 | | Resolve | | Rudy | [...] ng | | +---------+---------+---------+---------+---------+---------+---------+---------+---------+ | NICOTIN | 3568758 | | Active | | Prabhakar | | Nicotin | | | E | 8 | /08 | | /08 | | | e | | | ADDICTI | (SNOMED | | | | VanAnro | | depende | | | ON | CT) | | | | oy MD | | nce | | +---------+---------+---------+---------+---------+---------+---------+---------+---------+ | ASEPTIC | [id number] | | Inactiv | | Ann | [...] hip | | +---------+---------+---------+---------+---------+---------+---------+---------+---------+ | URI | [id number] | | Inactiv | | Phan | | Upper | | | | 9 | / | e | / | Middlek | | respira | | | | (SNOMED | | | | auff | | tory | | | | CT) | | | | AIRPLANE DESIGNER | | infecti | | | | | | | | | | on | | +---------+---------+---------+---------+---------+---------+---------+---------+---------+ | SORE | 2406101 | | Inactiv | | Phan | | Pain in | | | THROAT | 03 | /19 | e | /19 | Middlek | | throat | | | | (SNOMED | | | | auff | | | | | | CT) | | | | AIRPLANE DESIGNER | | | | +---------+---------+---------+---------+---------+---------+---------+---------+---------+ | OTHER | [id number] | | Active | | Prabhakar | [...] | | | +---------+---------+---------+---------+---------+---------+---------+---------+---------+ | OPIOID | 2589687 | | Active | | Phan | | Nondepe | | | ABUSE, | 05 | / | | /28 | Middlek | | ndent | | | CONTINU | (SNOMED | | | | auff | | opioid | | | OUS | CT) | | | | AIRPLANE DESIGNER | | abuse, | | | | | | | | | | continu | | | | | | | | | | ous | | +---------+---------+---------+---------+---------+---------+---------+---------+---------+ | HIP | 2005445 | | Active | | Phan | | Hip | | | PAIN, | 2 | /28 | | /28 | Middlek | | pain | | | LEFT | (SNOMED | | | | auff | | | | | | CT) | | | | AIRPLANE DESIGNER | | | | +---------+---------+---------+---------+---------+---------+---------+---------+---------+ | UPPER | [id number] | | Inactiv | | Malachi K | | Viral | | | RESPIRA | 04 | / | e | / | Dye | | upper | | [...] on | | +---------+---------+---------+---------+---------+---------+---------+---------+---------+ | BRACHIA | 1589452 | | Inactiv | | Malachi Levin [...] | | | +---------+---------+---------+---------+---------+---------+---------+---------+---------+ | RIB | 2519409 | | Inactiv | | Malachi Levin | | Rib | | | PAIN | | | | | Dye | | pain | | | | (SNOMED | | | | ACNP | | | | | | CT) | | | | | | | | +---------+---------+---------+---------+---------+---------+---------+---------+---------+ | LESION | 3692377 | | Active | | Clementina | [...] | | | +---------+---------+---------+---------+---------+---------+---------+---------+---------+ | ANAL | 8102336 | | Removed | | Karissa | | Anal | per | | FISSURE | 6 | /30 | | /30 | Sea | | fissure | Alexander | | | (SNOMED | | | | RN | | | [place] | | | CT) | | | | | | | MD | +---------+---------+---------+---------+---------+---------+---------+---------+---------+ | RECTAL | 8076580 | | Removed | | Rodrigo | | Rectal | per | | BLEEDIN | 2 | / | | /15 | Steiner | | hemorrh | Sacred [...] | 05/11/14 | +---------+---------+---------+---------+---------+---------+---------+---------+---------+ | SCREENI | 9099919 | | Removed | | Juan | [...] ng | | +---------+---------+---------+---------+---------+---------+---------+---------+---------+ | SCREENI | 9082881 | | Removed | | Andriy | | Alcohol | | | NG FOR | | | | | Padovic | | | | | ALCOHOL | (SNOMED | | | | h AIRPLANE DESIGNER | | consump | | | ISM | CT) | | | | | | tion | | | | | | | | | | screeni | | | | | | | | | | ng | | +---------+---------+---------+---------+---------+---------+---------+---------+---------+ | FOOT | 0883640 | | Removed | | Skye | | Foot | | | PAIN, | 7 | /15 | | /15 | Epifanio | | pain | | | RIGHT | (SNOMED | | | | AIRPLANE DESIGNER | | | | | | CT) [...] | 1 | | | BISACODYL | 8134769531 | Florecita | | 10 MG | suppositor | | | | 1 | Suhr AIRPLANE DESIGNER-C | | SUPP | y QHS PRN | | | | | | | | constipati | | | | | | | | on | | | | | | + + + + + + + + | GLORIA TUTTLE | | | | GLORIA TUTTLE | | Andriy | | | | | | | | Padlorena | | | | | | | | AIRPLANE DESIGNER | + + + + + + + + | MIRALAX | 17grams | | | POLYETHYLE | 8544776446 | Melvina | | POWD | mixed [...] Apply prn | | | BALSAM | [id number] | Bobby | | 650-72.5 | to lower | | | JOSEPH-GEOVANY | 3 | [place] | | MG/0.82ML | lip for | [...] | | | RSBG | | Mariselahr AIRPLANE DESIGNER-C | + + + + + + + + | CEPACOL | 1 lozenge | | | BENZOCAINE | [id number] | Karma | | SORE | every 2 | | | -MENTHOL | 0 | [place] | | THROAT | hours as | | | | | | | 10-2.1 MG | needed for | | | | | | | LOZG | sore | | | | | | | | throat | | | | | | + + + + + + + + | PAIN | signed | | | PAIN | | [place] [place] | | AGREEMENT | 1.2.15 | | | AGREEMENT | | NCMA | | D RATHER | | | | D RATHER | | | + + + + + + + + | UDS | 1.2.15 | | | UDS | | [facility] [place] | | | consistent | | | | | NCMA | + + + + + + + + | COLACE 100 | 1 cap BID | | | DOCUSATE | [id number] | Florecita | | MG CAPS | | | | SODIUM | 0 | Suhr AIRPLANE DESIGNER-C | + + + + + + + + | [facility] LYSINE | take 1 tab | | | LYSINE | 0523588445 | David | | 1000 MG | [...] tab BID | | | CYCLOBENZA | [id number] | Florecita | | YESSY HCL | PRN muscle | | | YESSY HCL | 1 | Suhr AIRPLANE DESIGNER-C | | 10 MG TABS | pain | | | | | | + + + + + + + + | NORCO | 1 every 8 | | | HYDROCODON | 5682376001 | Rudy | | 5-325 MG | hours as | | | E-ACETAMIN | 1 | Yaquelin | | TABS | needed | | | OPHEN | | MD | + + + + + + + + | NORCO | 1 tab po | | | HYDROCODON | 4532388392 | Karma | | 5-325 MG | QD | | | E-ACETAMIN | 1 | Berenice [place] | | TABS | | | | OPHEN | | | + + + + + + + + | PSEUDOEPHE | 1-2 | | | PSEUDOEPHE | 1204420935 | Marisel | | DRINE HCL | tablets | | | DRINE HCL | 2 | Rubio AIRPLANE DESIGNER | | 30 MG TABS | every [...] 1 by | | | TRAMADOL | 5104475026 | Marisel | | HCL 50 MG | mouth | | | HCL | 1 | Rubio AIRPLANE DESIGNER | | TABS | every 6 | | | | | | | | hours | | | | | | + + + + + + + + | OXYCODONE | 3-4 per | | | OXYCODONE | 1665308158 | Karma | | HCL 10 MG | day | | | HCL | 1 | Berenice CONRAD | | TABS | | | | | | | + + + + + + + + | OXYCODONE | 1 tab q 4 | | | OXYCODONE | 2459525463 | Karma | | HCL 15 MG | hrs PRN | | | HCL | 1 | Berenice CONRAD | | TABS | pain | | | | | | + + + + + + + + | HYDROCODON | Take 1 tab | | | HYDROCODON | 2011906864 | Melvina | | E-ACETAMIN | po [...] 1 tab | | | TRAMADOL | 6781624673 | Karma | | HCL 50 MG [...] 1 tab | | | OXYCODONE- | 0285365287 | Phan | | ACETAMINOP | by mouth | | | ACETAMINOP | 5 | [facility] | | HEN 5-325 | three | | | HEN | | f AIRPLANE DESIGNER | | MG TABS | times per [...] Take 1 | | | AMITRIPTYL | 8415427011 | Marisel | | MG TABS | tab po QHS | | | INE HCL | 0 | Rubio AIRPLANE DESIGNER | + + + + + + + + | GUAIFENESI | take 1 to | | | GUAIFENESI | 0107773437 | Marisel | | N 200 MG | 2 tablets | | | N | 0 | Rubio AIRPLANE DESIGNER | | TABS | by mouth | [...] Inhale 2 | | | ALBUTEROL | 9859498172 | Malachi Levin | | 108 (90 [...] 4-6 per | | | HYDROCODON | 0097017589 | Prabhakar | | 5-325 MG | day | | | E-ACETAMIN | 1 | VanMarinerooy | | TABS | | | | OPHEN | | MD | + + + + + + + + | COUMADIN 4 | 1 tab | | | WARFARIN | 7357831815 | David | | MG TABS | [...] Apply prn | | | BALSAM | 1004835044 | David | | 650-72.5 | to [...] | 17grams | | | POLYETHYLE | 1590665567 | David | | POWD | mixed [...] 1 tab | | | WARFARIN | 2334446157 | Florecita | | MG TABS | daily | | | SODIUM | 0 | Suhr AIRPLANE DESIGNER-C | + + + + + + + + | OXYCODONE | 3-4 per | | | OXYCODONE | 2084300413 | Rudy | | HCL 10 MG | day | | | HCL | 1 | Yaquelin | | TABS | | | | | | MD | + + + + + + + + | TESSALON | Take three | | | BENZONATAT | 2664300962 | Karma | | RACHEL 100 | [...] | three | | | IBUPROFEN | 9385004330 | Prabhakar | | 600 MG | times per | | | | 0 | VanAnrooy | | TABS | day | | | | | MD | + + + + + + + + | LISINOPRIL | 1 tab one | | | LISINOPRIL | 8500014283 | David | | 20 MG | time per | | | | 1 | [place] | | TABS | day | | | | | MA | + + + + + + + + | [facility] MILK | prn | | | MAGNESIUM | 9648499399 | David | | OF | constipati [...] cap BID | | | DOCUSATE | [id number] | David | | MG CAPS | | | | SODIUM | 0 | [place] | | | | | | | | [place] | + + + + + + + + | TYLENOL 8 | 1 tablet | | | ACETAMINOP | 0068641780 | Bobby | | HOUR | every 4 | | | HEN | 1 | [place] | | ARTHRITIS | hours as | [...] | | | | RSBG | | Nicholas | | | | | | | [...] TAB Q6 | | | TRAMADOL | 2720217756 | Rudy | | HCL 50 MG | HRS PRN | | | HCL | 1 | Yaquelin | | TABS | PAIN | | | | | MD | + + + + + + + + | CLINDAMYCI | 1 tab by | | | CLINDAMYCI | 3166903675 | Tommy | | N HCL 150 [...] Inhale 2 | | | ALBUTEROL | 6298391791 | Phan | | 108 (90 | puffs | | | SULFATE | 2 | [place]auf | | Base) | every 4 | | | | | f AIRPLANE DESIGNER | | MCG/ACT | hours as | [...] tab q | | | OXYCODONE- | 4301385280 | Florecita | | 7.5-325 MG | 4 hrs for | | | ACETAMINOP | 0 | Suhr AIRPLANE DESIGNER-C | | TABS | pain, hold | [...] po bid | | | HYDROCODON | 2331809546 | [place] | | E-ACETAMIN | prn severe | | | E-ACETAMIN | 1 | NCMA | | OPHEN | pain | | | OPHEN | | | | 5-325 MG | | | | | | | | TABS | | | | | | | + + + + + + + + | NORCO | 4-6 per | | | HYDROCODON | 8383556466 | Karma | | 5-325 MG | day | | | E-ACETAMIN | 1 | [place] | | TABS | | | | OPHEN | | | + + + + + + + + | TRAMADOL | 1-2 TAB | | | TRAMADOL | 7981576367 | David | | HCL 50 MG | BID PRN | | | HCL | 1 | [place] | | TABS | PAIN | | | | | MA | + + + + + + + + | GUAIFENESI | 1 tab | | | GUAIFENESI | 1643898162 | Karma | | N 400 MG [...] 2tabs po | | | VARENICLIN | 3492195382 | Rudy | | MG TABS | qd | | | E TARTRATE | 6 | Yaquelin | | | | | | | | MD | + + + + + + + + | BISAC-EVAC | 1 | | | BISACODYL | 8100529035 | David | | 10 MG | [...] 1 tab | | | PSEUDOEPHE | 1772371904 | Phan | | ARVIND HCL | by mouth | | | ARVIND HCL | 2 | Middlekauf | | 30 MG TABS | four times | | | | | f AIRPLANE DESIGNER | | | per day | | [...] 1tab by | | | HYDROCODON | 5065040035 | David | | 7.5-325 MG | [...] Take 1 | | | DOXYCYCLIN | 8402833709 | Malachi K | | E HYCLATE [...] 1 tablet | | | MELOXICAM | 6646362212 | Phan | | MG TABS | by mouth | | | | 1 | Middlekauf | | | daily. | | | | | f AIRPLANE DESIGNER | | | Must last | | | | | | | | 30 days. | | | | | | + + + + + + + + | CLINDAMYCI | 1 tab by | | | CLINDAMYCI | 2724665553 | Malachi K | | N HCL [...] | prn | | | MAGNESIUM | 6708434555 | Melvina | | OF | constipati [...] By mouth | | | IBUPROFEN | 3061640350 | Andriy | | 200 MG | 3 times a | | | | 1 | Padovich | | TABS | day | | | | | AIRPLANE DESIGNER | + + + + + + + + | CHANTIX 1 | 1 tab two | | | VARENICLIN | 6077652881 | Karma | | MG TABS | times per | | | E TARTRATE | 6 | [place] | | | day | | | | | | + + + + + + + + | HYDROCODON | Take 1 tab | | | HYDROCODON | 6334182118 | Karma | | E-ACETAMIN | po | | | E-ACETAMIN | 1 | [place] | | OPHEN | BID/PRN | | | OPHEN | | | | 7.5-325 MG | | | | | | | | TABS | | | | | | | + + + + + + + + | CYCLOBENZA | 1 tab BID | | | CYCLOBENZA | 9215875413 | David | | YESSY HCL | PRN muscle | | | YESSY HCL | 1 | [place] | | 10 MG TABS | pain | | | | | MA | + + + + + + + + | IBUPROFEN | three | | | IBUPROFEN | 9960031492 | Rudy | | 600 MG | times per | | | | 0 | Yaquelin | | TABS | day | | | | | MD | + + + + + + + + | PERCOCET | take 1 by | | | OXYCODONE- | 5726445553 | Marisel | | 5-325 MG | [...] | follow | | | VARENICLIN | 1652288899 | Marisel | | STARTING | instructio [...] 1 by | | | TRAMADOL | 8047236413 | Marisel | | HCL 50 MG | mouth | | | HCL | 1 | Rubio AIRPLANE DESIGNER | | TABS | every 6 | | | | | | | | hours | | | | | | + + + + + + + + | PSEUDOEPHE | 1-2 | | | PSEUDOEPHE | 5706087899 | Marisel | | DRINE HCL | tablets | | | DRINE HCL | 2 | Rubio AIRPLANE DESIGNER | | 30 MG TABS | every [...] | 1-2 | | | PSEUDOEPHE | 2120898084 | Marisel | | DRINE HCL | tablets | | | DRINE HCL | 2 | Rubio AIRPLANE DESIGNER | | 30 MG TABS | every [...] 1 to | | | GUAIFENESI | 0006465359 | Marisel | | N 200 MG | 2 tablets | | | N | 0 | Rubio AIRPLANE DESIGNER | | TABS | by mouth | [...] 1 spray | | | FLUTICASON | 4451653661 | Marisel | | ALLERGY | eash [...] tab one | | | LISINOPRIL | 2989108176 | Rudy | | 20 MG | time per | | | | 1 | Yaquelin | | TABS | day | | | | | MD | + + + + + + + + | CHANTIX 1 | take 1tab | | | VARENICLIN | 9257705224 | Rudy | | MG TABS | po daily | | | E TARTRATE | 6 | Yaquelin | | | | | | | | MD | + + + + + + + + | ELAVIL 25 | Take 1 | | | AMITRIPTYL | 7207509085 | Rudy | | MG TABS | tab po QHS | | | INE HCL | 0 | Yaquelin | | | | | | | | MD | + + + + + + + + | TRAMADOL | 1-2 TAB | | | TRAMADOL | 2891888226 | Rudy | | HCL 50 MG | BID PRN | | | HCL | 1 | Yaquelin | | TABS | PAIN | | | | | MD | + + + + + + + + | TRAMADOL | 1 TAB BID | | | TRAMADOL | 3945785889 | Rudy | | HCL 50 MG | PRN PAIN | | | HCL | 1 | Yaquelin | | TABS | | | | | | MD | + + + + + + + + | NORCO | 1tab by | | | HYDROCODON | 5147161278 | Rudy | | 7.5-325 MG | [...] TAB Q6 | | | TRAMADOL | 0954277519 | Prabhakar | | HCL 50 MG | HRS PRN | | | HCL | 1 | VanAnrooy | | TABS | PAIN | | | | | MD | + + + + + + + + | NORCO | 1tab po | | | HYDROCODON | 3756670666 | Rudy | | 7.5-325 MG | [...] tab po | | | HYDROCODON | 2048427854 | Rudy | | 5-325 MG | QD | | | E-ACETAMIN | 1 | Yaquelin | | TABS | | | | OPHEN | | MD | + + + + + + + + | TRAMADOL | take 1 tab | | | TRAMADOL | 4908114101 | Rudy | | HCL 50 MG | nightly | | | HCL | 1 | Yaquelin | | TABS | | | | | | MD | + + + + + + + + | NORCO | 1 every 8 | | | HYDROCODON | 1982819688 | Prabhakar | | 5-325 MG | hours as | | | E-ACETAMIN | 1 | VanAnrooy | | TABS | needed | | | OPHEN | | MD | + + + + + + + + | OXYCODONE | 1 tab q 4 | | | OXYCODONE | [id number] | Florecita | | HCL 15 MG | hrs PRN | | | HCL | 1 | Suhr [employer] DES[employer]ER-C | | TABS | pain | | | | | | + + + + + + + + | [facility] LYSINE | take 1 tab | | | LYSINE | [id number] | Rudy | | 1000 MG | [...] tab q | | | OXYCODONE- | [id number] | Florecita | | 7.5-325 MG | 4 hrs for | | | ACETAMINOP | 0 | Suhr [employer] DES[employer]ER-C | | TABS | pain, hold | | | HEN | | | | | if | | | | | | | | somnolent | | | | | | | | or asleep. | | | | | | + + + + + + + + | PERCOCET | 1-2 tab q | | | OXYCODONE- | [id number] | Florecita | | 7.5-325 MG | 4 hrs PRN | | | ACETAMINOP | 0 | Suhr [employer] DES[employer] | | TABS | pain, | | | HEN | | | | | dispense | | | | | | | | #84 | | | | | | + + + + + + + + | TESSALON | Take three | | | BENZONATAT | [id number] | Loraine | | RACHEL 100 | [...] 1tab po | | | VARENICLIN | [id number] | Rudy | | MG TABS | bid | | | E TARTRATE | 6 | Yaquelin | | | | | | | | MD | + + + + + + + + | HYDROCODON | Take 1 tab | | | HYDROCODON | [id number] | Rudy | | E-ACETAMIN | po [...] po qd | | | LISINOPRIL | [id number] | Rudy | | 20 MG | | | | | 1 | Yaquelin | | TABS | | | | | | MD | + + + + + + + + | TRAMADOL | 1 TAB Q6 | | | TRAMADOL | [id number] | Prabhakar | | HCL 50 MG | HRS PRN | | | HCL | 1 | VanAnrooy | | TABS | PAIN | | | | | MD | + + + + + + + + | CEPACOL | 1 lozenge | | | BENZOCAINE | [id number] | Phan | | SORE | every 2 | | | -MENTHOL | 0 | Middlekauf | | THROAT | hours as | | | | | f [employer]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.] Take 1 | | | GABAPENTIN | [id number] Seb Levin | | 300 MG | capsule [...] 1 tab | | | CYCLOBENZA | [id number] | Malachi Levin | | YESSY HCL [...] po bid | | | HYDROCODON | [id number] | Tommy | | E-ACETAMIN | prn [...] 1 tablet | | | MELOXICAM | [id number] | Jovany | | MG TABS | [...] | | | | | | | AIRPLANE DESIGNER | + + + + + + + +---+ + | | Allergy excluded from report: | +---+ + +---------+ + + + + + | CODEINE | | | Critical | No Longer | Prabhakar | | | | | | Active | zUma MD | +---------+ + + + + + | CODEINE | Itch | | Critical | No Longer | Phan | | | | | | Active | Marvin | | | | | | | AIRPLANE DESIGNER | +---------+ + + + + + | CODEINE | Itch | | Critical | No Longer | Skye | | | | | | Active | Epifanio AIRPLANE DESIGNER | +---------+ + + + + + | SULFA | Break out in | | Critical | | Skye | | | lashon | | | | Epifanio AIRPLANE DESIGNER | +---------+ + + + + + [...] +--------+------+---+---+---+ + + + | Lab Report: Edwin CONDE DNA AMP | + + + + [...] +--------+ +---+---+---+ + | | ESM_RR | [id number] | | | B | e-scripts | [...] | | | | | | | [id number]` | | | | | | | | [id number] | | | | | | | [...] | | | Dietary | | | THIRD SHIFT LIEUTENANT | | | | | management | [...] | | | Dietary | | | THIRD SHIFT LIEUTENANT | | | | | management | [...] + + +---+ + + + | Mcc Facility: Nursing Facility Care / Discharge anticipated [...] + + +---+ + + + | Mcc Facility: Nursing Facility Care / Initial Encounter [...] + + + +---+-----+---+ + | | ANASTACIO-GE-MICHELLEK | Negative | | NEG | N [...] +--------+-----+---+---------+---+ + + + | 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- lft hip pain | [...] | | | Dietary | | | THIRD SHIFT LIEUTENANT | | | | | management | [...] + + + +-------+---+---+ + | | PHQ9 Q2 | 0 | | | | Suicide | | | | | | | | risk | | | | | | | [...] Appointment | 03:00 PM | Marisel Bergeron AIRPLANE DESIGNER, [address] | | | | [facility] [address], | | | | [place], [address], | | | | | + + + + | Appointment | 11:20 AM | Prabhakar Gusman MD, [address] | | [address] [place], | | | | [place], [address], | + + + + | Referral | | ENT Consult | | | | [place] Phone #, [phone] | [address], | | | | [place], [place], [address] | | | | | + + + + | Referral | | Podiatry Consult | | | | GUILLERMO Haley, | | | | [address], | | | | [place], [address] | | | | | + + [...] | + + + + + | CPT-91146 | Urine Toxicology | | | | | Screen, Multiple | | | | | Drug Classes by | | | | | Direct Optical | | | | | Observation | | | + + + + + | [id number] | Overweight | | | + + + + + | [id number] | Overweight | | | + + + + + | CPT-J1885 | Toradol 15mg | | | + + + + + | CPT-47379 | Theraputic | | | | | Injection (IM/SubQ) | | | + + + + + | [id number] | Overweight | | | + + + + + | CPT-71925 | Theraputic | | | | | Injection (IM/SubQ) | | | + + + + + | CPT-J1885 | Toradol 15mg | | | + + + + + | CPT-75943 | Urine Toxicology | | | | | Screen, Multiple | | | | | Drug Classes by | | | | | Direct Optical | | | | | Observation | | | + + + + + | CPT-78093 | 18697 Individual | | | | | Therapy (53-112) | | | | | No POS Phone | | | + + + + + | CPT-41912 | XR Hip W/Pelvis | | | | | 2-3V-Lt | | | + + + + + | CPT-97783 | Theraputic | | | | | Injection (IM/SubQ) | | | + + + + + | CPT-J1885 | Toradol 15mg | | | + + + + + | CPT-03080 | Urine Toxicology | | | | | Screen, Multiple | | | | | Drug Classes by | | | | | Direct Optical | | | | | Observation | | | + + + + + | CPT-77544 | Theraputic | | | | | Injection (IM/SubQ) | | | + + + + + | CPT-J1885 | Toradol 15mg | | | + + + + + | CPT-23943 | Theraputic | | | | | Injection (IM/SubQ) | | | + + + + + | CPT-J1885 | Toradol 15mg | | | + + + + + | CPT-07813 | Theraputic | | | | | Injection (IM/SubQ) | | | + + + + + | CPT-J1885 | Toradol 15mg | | | + + + + + | CPT-83643 | XR Hip W/Pelvis | | | | | 2-3V-Lt | | | + + + + + | CBC AUTO 78347 | CBC w/ Auto Diff | | | + + + + + | CPT-48157 | XR Hip W/Pelvis | | | | | 2-3V-Lt | | | + + + + + | CBC AUTO 12564 | CBC w/ Auto Diff | | | + + + + + | M NOS MRSA 57805 | Nose Culture, MRSA | | | | | Only | | | + + + + + | CHEM 8 84119 | Basic Metabolic | | | | | Panel | | | + + + + + | CPT-49638 | Health Risk | | | | | Assessment | | | + + + + + | GLYCO HGB 70234 | Glyco Hemoglobin, | | | | | A1C | | | + + + + + | CPT-62220 | Health Risk | | | | | Assessment | | | + + + + + | CPT-81753 | Health Risk | | | | | Assessment | | | + + + + + | U NICOTINE 71035 | Cotinine | | | + + + + + | 82428 | MR Hip-WO Con-Lt | | | + + + + + | CPT-19110 | XR Hip W/Pelvis | | | | | 2-3V-Lt | | | + + + + + | CPT- 02979 | Administration | | | | | (49500) | | | + + + + + | CPT-J1885 | Toradol Inj. 60mg | | | + + + + + | CPT-31115 | Urine Tox, multiple | | | | | drug classes | | | + + + + + | 86551 | XR Foot 2V-Rt | | | + + + + + | [id number] | [Recorded for CQM] | | | | | Pedal pulse taking | | | | | (procedure) | | | + + + + + | [id number] | [Recorded for CQM] | | | | | Documentation of | | | | | current medications | | | | | (procedure) | | | + + + + + | [id number] | [Recorded for CQM] | | | | | Health-related | | | | | behavior | | | + + + + + | [id number] | MU Generic Patient | | | | | Encounter Service | | | | | (from patch) | | | + + + + + | [id number] | [Recorded for CQM] | | | | | Pedal pulse taking | | | | | (procedure) | | | + + + + + | [id number] | [Recorded for CQM] | | | | | Documentation of | | | | | current medications | | | | | (procedure) | | | + + + + + | [id number] | [Recorded for CQM] | | | | | Drug or Medication | | | + + + + + | [id number] | [Recorded for CQM] | | | | | Details of drug | | | | | misuse behavior | | | + + + + + | [id number] | [Recorded for CQM] | | | | | Never smoker | | | + + + + + | [id number] | [Recorded for CQM] | | | | | Never smoked | | | | | tobacco (finding) | | | + + + + + | 104436521 | [Recorded for CQM] | | | | | Tobacco use and | | | | | exposure | | | + + + + + | 882971802 | [Recorded for CQM] | | | | | Alcohol intake | | | + + + + + | 690756020 | [Recorded for CQM] | | | | | Allergy | | | + + + + + | 635478944 | [Recorded for CQM] | | | | | Alcohol intake | | | + + + + + | 167908374 | [Recorded for CQM] | | | | | Tobacco use and | | | | | exposure | | | + + + + + | 755065185 | [Recorded for CQM] | | | | | Details of drug | | | | | misuse behavior | | | + + + + + | 811414202 | [Recorded for CQM] | | | | | Drug or Medication | | | + + + + + | [id number] | [Recorded for CQM] | | | | | Current Light | | | | | tobacco smoker | | | + + + + + | [id number] | [Recorded for CQM] | | | | | Light tobacco | | | | | smoker (finding) | | | + + + + + | [id number] | [Recorded for CQM] | | | | | Documentation of | | | | | current medications | | | | | (procedure) | | | + + + + + | [id number] | [Recorded for CQM] | | | | | Pedal pulse taking | | | | | (procedure) | | | + + + + + | 06408 | XR Foot 2V-Rt | | | [...]
--- OUTSIDE RECORDS SUMMARY | ~2019-09-25 | XMS | Continuity of Care Document ---
Demographics + + + | Address | [address] | | | [place] [address] | + + + | Home Phone | | + + + | Preferred Language | Unknown | + + + | Marital Status | Unknown | + + + | Episcopal Affiliation | Unknown | + + + | Race | Unknown | + + + | Ethnic Group | Unknown | + + + Author + + + | Author | [facility] | + + + | Organization | [facility] | + + + | Address | [address] | | | [place] [address] | + + + | Phone | | + + + Support + + + + + | Name | Relationship | Address | Phone | + + + + + | DOCTOR, NO PCP | Caregiver | [address] | | | | | [place] | | | | | [address] | | + + + + + | Malachi Pimentel MD | Caregiver | ER | | | | | [place] [address] | | + + + + + | DEBBIE KUMAR | Next Of Kin | [place] [address] | | + + + + + Care Team Providers + + + + | Care Snuff Drier Name | Role | Phone | + + + + | IOANA CAMPO | Unavailable | | + + + + Insurance Providers + + + + + | Payer Name | Policy Number | Subscriber Name | Relationship | + + + + + | LIPA | [id number] | BOBBY STODDARD | SELF | + + + + + Chief Complaint and Reason for Visit + +----+ | Reason for Visit | CP | + +----+ Problems Active Medical Problems + + + [...] ORAL | Twice | 20 | | / | | in V | | | [...] needed for Pain | | | | ([place] 5-325 | | | | | Tablet) 1 Each | | | | | Tablet Tablet, 1 | | | | | Tab Oral | | | | + + + + + | Hydrocodone | Every 4 Hours as | 01/13/15 | Discontinued | | Bit/Acetaminophen | Needed as needed | | | | ([place] 5-325 | for PAIN | | | | Tablet) 5 Mg-325 Mg | | | | | Tablet Tablet, 1-2 | | | | | Tab Oral | | | | + + + + + | Hydrocodone/Acetami | | Unknown | Discontinued | | nophen ([place] | | | | | 5MG-325MG) 5 [...] Mg | Pain | | | | ([place] 10-325 Mg) | | | | | 10 Mg-325 Mg Tab | | | | | Tab, 0.5-1 Tab Oral | | | | + + + + + | Hydrocodone/Apap | Every 6 Hours | 08/15/16 | Discontinued | | 5-325 Mg ([place] | | | | | 5-325 Mg) [...] Irritation | | | | Soln, 1 [place] Nasal | | | | + + [...] + + + | Discharge Date | 08/26/18 | + + + | Disposition | HOME | + + + | Condition at Discharge | Fair | + + + | Instructions/Education Provided | Nonspecific Chest Pain, Kqca-do-Cahi | + + + | Forms Provided [...] | Unknown | ANAPHYLAXIS, | Active | 08/26/18 | | (Sulfonamide | | | HIVES | | | | | | | | | | | Antibiotics) | | | | | | + +---------+ + +--------+ + | codeine | Allergy | Unknown | | Active | 08/26/18 | + +---------+ + +--------+ + Immunizations No Known History of Immunizations. Vital Signs + + + + | Vital Reading | Collection Date/Time | Result | + + + + | Blood Pressure | 08/26/18 3:16pm | 141/92 | + + + + | Blood Pressure Source | 06/17/16 4:24am | Right Arm | + + + + | Temperature | 08/26/18 3:16pm | 99.2 F | + + + + | Temperature Source | 08/26/18 3:16pm | Temporal | + + + + | Respiratory Rate | 08/26/18 3:16pm | 16 | + + + + | Pulse Rate | 08/26/18 3:16pm | 86 | + + + + | Bedside Pulse Oximetry | 08/26/18 3:16pm | 97 | + + + + | Height | 08/26/18 3:16pm | 6 ft 1 in | + + + + | Height | 08/26/18 3:16pm | 185.42 cm | + + + + | Weight | 08/26/18 3:16pm | 230 lb | + + + + | Weight | 08/26/18 3:16pm | 104.33 kg | + + + + | Body Mass Index | 08/26/18 3:16pm | 30.3 kg/m2 | + + + [...] + + + + | White | 7.76 | K/mm3 | | 4.00-11. | 08/26/18 | 04/28/19 | | | Blood | | | | 30 | 3:45pm | 4:01pm | | | Count | | | | | | | | + +--------+ +-------+ + + + + | Red | 5.15 | M/mm3 | | 4.30-5.9 | 08/26/18 | 08/26/18 | | | Blood | | | | 0 | 3:45pm | 4:01pm | | | Count | | | | | | | | + +--------+ +-------+ + + + + | Hemoglob | 15.4 | g/dL | | 13.5-17. | 08/26/18 | 08/26/18 | | | in | | | | 5 | 3:45pm | 4:01pm | | + +--------+ +-------+ + + + + | Hematocr | 46.7 | % | | 37.0-53. | 08/26/18 | 08/26/18 | | | it | | | | 0 | 3:45pm | 4:01pm | | + +--------+ +-------+ + + + + | Mean | 91 | fL | | 80-100 | 08/26/18 | 08/26/18 | | | Corpuscu | | | | | 3:45pm | 4:01pm | | | lar | | | | | | | | | Volume | | | | | | | | + +--------+ +-------+ + + + + | Mean | 29.9 | pg | | 26.0-34. | 08/26/18 | 08/26/18 | | | Corpuscu | | | | 0 | 3:45pm | 4:01pm | | | lar | | | | | | | | | Hemoglob | | | | | | | | | in | | | | | | | | + +--------+ +-------+ + + + + | Mean | 33.0 | g/dL | | 31.5-36. | 08/26/18 | 08/26/18 | | | Corpuscu | | | | 5 | 3:45pm | 4:01pm | | | lar | | | | | | | | | Hemoglob | | | | | | | | | in | | | | | | | | | Concent | | | | | | | | + +--------+ +-------+ + + + + | RDW | 45.7 | fL | | 35.1-46. | 08/26/18 | 08/26/18 | | | Standard | | | | 3 | 3:45pm | 4:01pm | | | | | | | | | | | | Deviatio | | | | | | | | | n | | | | | | | | + +--------+ +-------+ + + + + | RDW | 13.5 | % | | 11.7-14. | 08/26/18 | 08/26/18 | | | Coeffici | | | | 2 | 3:45pm | 4:01pm | | | ent of | | | | | | | | | Variatio | | | | | | | | | n | | | | | | | | + +--------+ +-------+ + + + + | Platelet | 270 | K/mm3 | | 150-400 | 08/26/18 | 08/26/18 | | | Count | | | | | 3:45pm | 4:01pm | | + +--------+ +-------+ + + + + | Mean | 9.8 | fL | | 9.1-12.4 | 08/26/18 | 08/26/18 | | | Platelet | | | | | 3:45pm | 4:01pm | | | Volume | | | | | | | | + +--------+ +-------+ + + + + | Differen | Auto | | | | 08/26/18 | 08/26/18 | | | tial | | | | | 3:45pm | 4:01pm | | | Method | | | | | | | | + +--------+ +-------+ + + + + | Neutroph | 67 | % | | 41-73 | 08/26/18 | 08/26/18 | | | ils (%) | | | | | 3:45pm | 4:01pm | | | (Auto) | | | | | | | | + +--------+ +-------+ + + + + | Lymphocy | 25 | % | | 21-46 | 08/26/18 | 08/26/18 | | | wicho (%) | | | | | 3:45pm | 4:01pm | | | (Auto) | | | | | | | | + +--------+ +-------+ + + + + | Monocyte | 7 | % | | 4-13 | 08/26/19 | 19 | | | s (%) | | | | | 3:45pm | 4:01pm | | | (Auto) | | | | | | | | + +--------+ +-------+ + + + + | Eosinoph | 0 | % | | 0-6 | 08/26/18 | 08/26/18 | | | ils (%) | | | | | 3:45pm | 4:01pm | | | (Auto) | | | | | | | | + +--------+ +-------+ + + + + | Basophil | 1 | % | | 0-2 | 08/26/18 | 19 | | | s (%) | | | | | 3:45pm | 4:01pm | | | (Auto) | | | | | | | | + +--------+ +-------+ + + + + | Immature | 0 | % | | 0-1 | 08/26/18 | 19 | | | | | | | | 3:45pm | 4:01pm | | | Granuloc | | | | | | | | | yte % | | | | | | | | | (Auto) | | | | | | | | + +--------+ +-------+ + + + + | Nucleate | 0.0 | /100 WBC | | 0.0-0.2 | 08/26/18 | 08/26/18 | | | d Red | | | | | 3:45pm | 4:01pm | | | Blood | | | | | | | | | Cells % | | | | | | | | + +--------+ +-------+ + + + + | Absolute | 5.22 | K/mm3 | | 1.96-9.1 | 08/26/18 | 08/26/18 | | | | | | | 5 | 3:45pm | 4:01pm | | | Neutroph | | | | | | | | | ils | | | | | | | | | (auto) | | | | | | | | + +--------+ +-------+ + + + + | Absolute | 1.90 | K/mm3 | | 0.84-5.2 | 08/26/18 | 08/26/18 | | | | | | | 0 | 3:45pm | 4:01pm | | | Lymphocy | | | | | | | | | wicho | | | | | | | | | (auto) | | | | | | | | + +--------+ +-------+ + + + + | Absolute | 0.52 | K/mm3 | | 0.16-1.4 | 08/26/18 | 08/26/18 | | | | | | | 7 | 3:45pm | 4:01pm | | | Monocyte | | | | | | | | | s (auto) | | | | | | | | + +--------+ +-------+ + + + + | Absolute | 0.02 | K/mm3 | | 0.00-0.6 | 08/26/18 | 08/26/18 | | | | | | | 8 | 3:45pm | 4:01pm | | | Eosinoph | | | | | | | | | ils | | | | | | | | | (auto) | | | | | | | | + +--------+ +-------+ + + + + | Absolute | 0.08 | K/mm3 | | 0.00-0.2 | 08/26/18 | 08/26/18 | | | | | | | 3 | 3:45pm | 4:01pm | | | Basophil | | | | | | | | | s (auto) | | | | | | | | + +--------+ +-------+ + + + + | Absolute | 0.02 | K/mm3 | | 0.00-0.1 | 08/26/18 | 08/26/18 | | | | | | | 0 | 3:45pm | 4:01pm | | | Immature | | | [...] 0.00 | K/mm3 | | 0.00-0.0 | 08/26/18 | 08/26/18 | | | d RBC | | | | 2 | 3:45pm | 4:01pm | | | Absolute | | | [...] + + + + | Sodium | 141 | mmol/L | | 136-145 | 08/26/18 | 08/26/18 | | | Level | | | | | 3:45pm | 4:22pm | | + +--------+ +-------+ + + + + | Potassiu | 3.7 | mmol/L | | 3.5-5.5 | 08/26/18 | 08/26/18 | | | m Level | | | | | 3:45pm | 4:22pm | | + +--------+ +-------+ + + + + | Chloride | 106 | mmol/L | | 98-108 | 08/26/18 | 08/26/18 | | | Level | | | | | 3:45pm | 4:22pm | | + +--------+ +-------+ + + + + | Carbon | 28 | mmol/L | | 21-32 | 08/26/18 | 08/26/18 | | | Dioxide | | | | | 3:45pm | 4:22pm | | | Level | | | | | | | | + +--------+ +-------+ + + + + | Anion | 7 | mmol/L | | 6-16 | 08/26/18 | 08/26/18 | | | Gap | | | | | 3:45pm | 4:22pm | | + +--------+ +-------+ + + + + | Glucose | 94 | mg/dL | | 70-99 | 08/26/18 | 08/26/18 | | | Level | | | | | 3:45pm | 4:22pm | | + +--------+ +-------+ + + + + | Blood | 17 | mg/dL | | 8-24 | 08/26/18 | 08/26/18 | | | Urea | | | | | 3:45pm | 4:22pm | | | Nitrogen | | | | | | | | + +--------+ +-------+ + + + + | Creatini | 0.68 | mg/dL | | 0.60-1.2 | 08/26/18 | 08/26/18 | | | ne | | | | 0 | 3:45pm | 4:22pm | | + +--------+ +-------+ + + + + | BUN/Crea | 25.0 | % | H | 12.0-20. | 08/26/18 | 08/26/18 | | | tinine | | | | 0 | 3:45pm | 4:22pm | | | Ratio | | | | | | | | + +--------+ +-------+ + + + + | Glomerul | >60 | | | 60- | 08/26/18 | 08/26/18 | Non-Afri | | ar | | | | | 3:45pm | 4:22pm | can | | Filtrati | | | | | | | [place] | | on Rate | | | | | | | GFR | | Calc | | | | | | | CalcFor | | | | | | | | | | | | | | | | | | [place] | | | | | | | [...] | mg/dL | L | 8.5-10.1 | 08/26/18 | 08/26/18 | | | Level | | | | | 3:45pm | 4:22pm | | + +--------+ +-------+ + + + + | Total | 7.1 | g/dL | | 6.4-8.2 | 08/26/18 | 08/26/18 | | | Protein | | | | | 3:45pm | 4:22pm | | + +--------+ +-------+ + + + + | Albumin | 3.6 | g/dL | | 3.4-5.0 | 08/26/18 | 08/26/18 | | | | | | | | 3:45pm | 4:22pm | | + +--------+ +-------+ + + + + | Globulin | 3.5 | g/dL | | 2.2-4.0 | 08/26/18 | 08/26/18 | | | | | | | | 3:45pm | 4:22pm | | + +--------+ +-------+ + + + + | Albumin/ | 1.0 | | | 0.8-1.8 | 08/26/18 | 08/26/18 | | | Globulin | | | | | 3:45pm | 4:22pm | | | Ratio | | | | | | | | + +--------+ +-------+ + + + + | Total | 0.4 | mg/dL | | 0.1-1.0 | 08/26/18 | 08/26/18 | | | Bilirubi | | | | | 3:45pm | 4:22pm | | | n | | | | | | | | + +--------+ +-------+ + + + + | Alkaline | 49 | U/L | L | 50-136 | 08/26/18 | 08/26/18 | | | | | | | | 3:45pm | 4:22pm | | | Phosphat | | | | | | | | | ase | | | | | | | | + +--------+ +-------+ + + + + | Aspartat | 64 | U/L | H | 12-37 | 08/26/18 | 08/26/18 | | | e Amino | | | | | 3:45pm | 4:22pm | | | Transf | | | | | | | | | (AST/SGO | | | | | | | | | T) | | | | | | | | + +--------+ +-------+ + + + + | Alanine | 61 | U/L | | 12-78 | 08/26/18 | 08/26/18 | | | Aminotra | | | | | 3:45pm | 4:22pm | | | nsferase | | | [...] + | Departed | [facility] | 08/26/18 3:14pm | 08/26/18 4:40pm | Malachi Pimentel | | Emergency | [facility] [place] | | | MD | + + + + + + + + + | Encounter Diagnosis | Onset Date | + + + | Acute chest pain | | + + +"
--- OUTSIDE RECORDS SUMMARY | ~2019-09-25 | XMS | Clinical Summary ---
Demographics + + + | Address | General Delivery | | | [place] [address] | + + + | Home Phone | ;ext=1 | + + + | Preferred Language | Unknown | + + + | Marital Status | U | + + + | Alevism Affiliation | Unknown | + + + | Race | White | + + + | Ethnic Group | Not or | + + + Author + + + | Author | [facility] | + + + | Organization | [facility] | + + + | Address | [address] | | | [place] [address] | + + + | Phone | Unavailable | + + + Care Team Providers + +------+ + | Care Mold Carrier Name | Role | Phone | + [...] tion | | +---------+---------+---------+---------+---------+---------+---------+---------+---------+ | ADJUSTM | [id number] | | Active | | Mariah | [...] mood | | +---------+---------+---------+---------+---------+---------+---------+---------+---------+ | CHRONIC | [id number] | | Active | | Faina | | Chronic | | | PAIN | | | | | [place] | | pain | | | SYNDROM | (SNOMED | | | | CASKET ASSEMBLER METAL | | syndrom | | | E | CT) | | | | | | e | | +---------+---------+---------+---------+---------+---------+---------+---------+---------+ | PAIN | [id number] | | Active | | Faina | | Psychal | | | DISORDE | | | | / | [place] | | urban | | | R | (SNOMED | | | | CASKET ASSEMBLER METAL | | | | | ASSOCIA | [...] | | | +---------+---------+---------+---------+---------+---------+---------+---------+---------+ | ANEMIA | [id number] | | Active | | Florecita | | Anemia | | | | 00 | | | | Suhr | | | | | | (SNOMED | | | | WATER SYSTEMS DESIGNER-C | | | | | | CT) | | | | | | | | +---------+---------+---------+---------+---------+---------+---------+---------+---------+ | APHTHOU | [id number] | | Active | | Luis | | Aphthou | | | S ULCER | 05 | | | | page Pimentel | | s ulcer | | | OF | (SNOMED | | | | MA | | of | | | MOUTH | CT) | | | | | | mouth | | +---------+---------+---------+---------+---------+---------+---------+---------+---------+ | DIFFICU | [id number] | | Active | | Nayan | | Walking | | | LTY IN | 08 | /20 | | / | Hersche | | | | | WALKING | (SNOMED | | | | r DO | | disabil | | | | CT) | | | | | | ity | | +---------+---------+---------+---------+---------+---------+---------+---------+---------+ | TOTAL | [id number] | | Active | | Florecita | | Total | | | HIP | 7 | | | | Suhr | | replace | | | ARTHROP | (SNOMED | | | | WATER SYSTEMS DESIGNER-C | | ment of | | [...] , | -CM) | | | | WATER SYSTEMS DESIGNER-C | | osteoar | | | [...] | | | +---------+---------+---------+---------+---------+---------+---------+---------+---------+ | FOOT | [id number] | | Resolve | | Florecita | | Foot | | | PAIN, | 7 | /15 | d | /15 | Suhr | | pain | | | RIGHT | (SNOMED | | | | WATER SYSTEMS DESIGNER-C | | | | | | CT) | | | | | | | | +---------+---------+---------+---------+---------+---------+---------+---------+---------+ | RECTAL | [id number] | | Resolve | | Florecita | | Rectal | per | | BLEEDIN | 2 | /15 | d | /15 | Suhr | | hemorrh | Sacred | | G | (SNOMED | | | | WATER SYSTEMS DESIGNER-C | | age | Heart | | | CT) | | | | | | | [facility] | | | | | | | | | | nd ER | | | | | | | | | | visit | | | | | | | | | | 05/11/14 | +---------+---------+---------+---------+---------+---------+---------+---------+---------+ | ANAL | [id number] | | Resolve | | Florecita | | Anal | per . | | FISSURE | 6 | | d | | Suhr | | fissure | Alexander | | | (SNOMED | | | | WATER SYSTEMS DESIGNER-C | | | [place] | | | CT) | | | | | | | MD | +---------+---------+---------+---------+---------+---------+---------+---------+---------+ | NEW | [id number] | | Resolve | | Florecita | | Procedu | | | PATIENT | 03 | | d | 24 | Suhr | | re | | | | (SNOMED | | | | WATER SYSTEMS DESIGNER-C | | carried | | | CONSULT | CT) | | | | | | out on | | | ATION | | | | | | | | | | | | | | | | | subject | | +---------+---------+---------+---------+---------+---------+---------+---------+---------+ | AVASCUL | [id number] | | Active | | Prabhakar | [...] femur | | +---------+---------+---------+---------+---------+---------+---------+---------+---------+ | URI | [id number] | | Inactiv | | Loraine | [...] on | | +---------+---------+---------+---------+---------+---------+---------+---------+---------+ | HYPERTE | 4833072 | | Active | | Rudy | | Hyperte | | | NSION | | | | | Monteir | | nsive | | | | (SNOMED | | | | o MD | | disorde | | | | CT) | | | | | | r | | +---------+---------+---------+---------+---------+---------+---------+---------+---------+ | ELEVATE | [id number] | | Active | | Rudy | | Hypergl | | | D BLOOD | | | | | Monteir | | ycemia | | | SUGAR | (SNOMED | | | | o MD | | | | | | CT) | | | | | | | | +---------+---------+---------+---------+---------+---------+---------+---------+---------+ | NEW | [id number] | | Removed | | Rudy | [...] subject | | +---------+---------+---------+---------+---------+---------+---------+---------+---------+ | SCREENI | 3561171 | | Resolve | | Ruyd | [...] ng | | +---------+---------+---------+---------+---------+---------+---------+---------+---------+ | SCREENI | 8493656 | | Resolve | | Rudy | [...] ng | | +---------+---------+---------+---------+---------+---------+---------+---------+---------+ | NICOTIN | 2348326 | | Active | | Prabhakar | | Nicotin | | | E | 8 | /08 | | /08 | | | e | | | ADDICTI | (SNOMED | | | | VanAnro | | depende | | | ON | CT) | | | | oy MD | | nce | | +---------+---------+---------+---------+---------+---------+---------+---------+---------+ | ASEPTIC | [id number] | | Inactiv | | Ann | [...] hip | | +---------+---------+---------+---------+---------+---------+---------+---------+---------+ | URI | [id number] | | Inactiv | | Phan | | Upper | | | | 9 | | e | | Middlek | | respira | | | | (SNOMED | | | | auff | | tory | | | | CT) | | | | WATER SYSTEMS DESIGNER | | infecti | | | | | | | | | | on | | +---------+---------+---------+---------+---------+---------+---------+---------+---------+ | SORE | 9294305 | | Inactiv | | Phan | | Pain in | | | THROAT | 03 | / | e | / | Middlek | | throat | | | | (SNOMED | | | | auff | | | | | | CT) | | | | WATER SYSTEMS DESIGNER | | | | +---------+---------+---------+---------+---------+---------+---------+---------+---------+ | OTHER | 2404258 | | Active | | Prabhakar | [...] | | | +---------+---------+---------+---------+---------+---------+---------+---------+---------+ | OPIOID | [id number] | | Active | | Phan | | Nondepe | | | ABUSE, | 05 | / | | | Middlek | | ndent | | | CONTINU | (SNOMED | | | | auff | | opioid | | | OUS | CT) | | | | WATER SYSTEMS DESIGNER | | abuse, | | | | | | | | | | continu | | | | | | | | | | ous | | +---------+---------+---------+---------+---------+---------+---------+---------+---------+ | HIP | 7082469 | | Active | | Phan | | Hip | | | PAIN, | 2 | / | | | Middlek | | pain | | | LEFT | (SNOMED | | | | auff | | | | | | CT) | | | | WATER SYSTEMS DESIGNER | | | | +---------+---------+---------+---------+---------+---------+---------+---------+---------+ | UPPER | [id number] | | Inactiv | | Malachi Levin [...] on | | +---------+---------+---------+---------+---------+---------+---------+---------+---------+ | BRACHIA | [id number] | | Inactiv | | Malachi Levin [...] | | | +---------+---------+---------+---------+---------+---------+---------+---------+---------+ | RIB | 1005033 | | Inactiv | | Malachi K | | Rib | | | PAIN | | | e | | Dye | | pain | | | | (SNOMED | | | | ACNP | | | | | | CT) | | | | | | | | +---------+---------+---------+---------+---------+---------+---------+---------+---------+ | LESION | [id number] | | Active | | Clementina | [...] | | | +---------+---------+---------+---------+---------+---------+---------+---------+---------+ | ANAL | 7101307 | | Removed | | Karissa | | Anal | per | | FISSURE | 6 | | | / | Sea | | fissure | Alexander | | | (SNOMED | | | | RN | | | [place] | | | CT) | | | | | | | MD | +---------+---------+---------+---------+---------+---------+---------+---------+---------+ | RECTAL | 4791702 | | Removed | | Rodrigo | [...] | 05/11/14 | +---------+---------+---------+---------+---------+---------+---------+---------+---------+ | SCREENI | 1942865 | | Removed | | Juan | [...] ng | | +---------+---------+---------+---------+---------+---------+---------+---------+---------+ | SCREENI | 3511907 | | Removed | | Andriy | | Alcohol | | | NG FOR | 01 | / | | / | Padovic | | | | | ALCOHOL | (SNOMED | | | | h WATER SYSTEMS DESIGNER | | consump | | | ISM | CT) | | | | | | tion | | | | | | | | | | screeni | | | | | | | | | | ng | | +---------+---------+---------+---------+---------+---------+---------+---------+---------+ | FOOT | [id number] | | Removed | | Skye | | Foot | | | PAIN, | 7 | /15 | | /15 | Epifanio | | pain | | | RIGHT | (SNOMED | | | | WATER SYSTEMS DESIGNER | | | | | | [...] | 1 | | | BISACODYL | 4297538271 | Florecita | | 10 MG | [...] 3-4 per | | | OXYCODONE | 6993680897 | Rudy | | HCL 10 MG | day | | | HCL | 8 | Yaquelin | | TABS | | | | | | MD | + + + + + + + + | MIRALAX | 17grams | | | POLYETHYLE | 2921104805 | Melvina | | POWD | mixed [...] Take three | | | BENZONATAT | 2350202504 | Karma | | PERLES 100 | [...] | three | | | IBUPROFEN | 9803799922 | Prabhakar | | 600 MG | times per | | | | 6 | VanAnrooy | | TABS | day | | | | | MD | + + + + + + + + | AMBERDERM | Apply prn | | | BALSAM | 4151039128 | Nayan | | 650-72.5 | to lower | | | JOSEPH-GEOVANY | 3 | [place] | | MG/0.82ML | lip for | [...] | | | RSBG | | Mariselahr WATER SYSTEMS DESIGNER-C | + + + + + + + + | CEPACOL | 1 lozenge | | | BENZOCAINE | 0490275435 | Karma | | SORE | every [...] 1 tablet | | | ACETAMINOP | 0131939282 | Nayan | | HOUR | every 4 | | | HEN | 1 | [place] | | ARTHRITIS | hours as | [...] cap BID | | | DOCUSATE | [id number] | Florecita | | MG CAPS | | | | SODIUM | 0 | Suhr WATER SYSTEMS DESIGNER-C | + + + + + [...] tab BID | | | CYCLOBENZA | [id number] | Florecita | | YESSY HCL | PRN muscle | | | YESSY HCL | 0 | Suhr WATER SYSTEMS DESIGNER-C | | 10 MG TABS | [...] TAB Q6 | | | TRAMADOL | 6813924296 | Rudy | | HCL 50 MG | HRS PRN | | | HCL | 0 | Yaquelin | | TABS | PAIN | | | | | MD | + + + + + + + + | NORCO | 1 every 8 | | | HYDROCODON | 9058050637 | Rudy | | 5-325 MG | hours as | | | E-ACETAMIN | 1 | Yaquelin | | TABS | needed | | | OPHEN | | MD | + + + + + + + + | CLINDAMYCI | 1 tab by | | | CLINDAMYCI | 6757788773 | Tommy | | N HCL 150 [...] tab po | | | HYDROCODON | 0144291028 | Karma | | 5-325 MG | [...] Inhale 2 | | | ALBUTEROL | 7171976164 | Hpan | | 108 (90 | puffs | | | SULFATE | 2 | Middlekauf | | Base) | every 4 | | | | | f WATER SYSTEMS DESIGNER | | MCG/ACT | hours as [...] tab q | | | OXYCODONE- | 9323283443 | Florecita | | 7.5-325 MG | 4 hrs for | | | ACETAMINOP | 0 | Suhr WATER SYSTEMS DESIGNER-C | | TABS | pain, hold [...] po bid | | | HYDROCODON | 6180291069 | Cyndi Vernon | | E-ACETAMIN | prn severe | | | E-ACETAMIN | 2 | NCMA | | OPHEN | pain | | | OPHEN | | | | 5-325 MG | | | | | | | | TABS | | | | | | | + + + + + + + + | NORCO | 4-6 per | | | HYDROCODON | 7532074691 | Karma | | 5-325 MG | day | | | E-ACETAMIN | 1 | Berenice CONRAD | | TABS | | | | OPHEN | | | + + + + + + + + | OXYCODONE | 3-4 per | | | OXYCODONE | 6359590895 | Karma | | HCL 10 MG | day | | | HCL | 8 | Berenice CONRAD | | TABS | | | | | | | + + + + + + + + | OXYCODONE | 1 tab q 4 | | | OXYCODONE | 8554923313 | Karma | | HCL 15 MG | hrs PRN | | | HCL | 1 | Berenice CONRAD | | TABS | pain | | | | | | + + + + + + + + | HYDROCODON | Take 1 tab | | | HYDROCODON | 4367766227 | Melvina | | E-ACETAMIN | po [...] 1 tab | | | TRAMADOL | 3456416590 | Karma | | HCL 50 MG [...] 1 tab | | | GUAIFENESI | 4445592989 | Karma | | N 400 MG [...] 2tabs po | | | VARENICLIN | 8417031327 | Rudy | | MG TABS | qd | | | E TARTRATE | 6 | Yaquelin | | | | | | | | MD | + + + + + + + + | OXYCODONE- | Take 1 tab | | | OXYCODONE- | 6719298535 | Phan | | ACETAMINOP | by mouth | | | ACETAMINOP | 6 | Abeluf | | HEN 5-325 | three | | | HEN | | f WATER SYSTEMS DESIGNER | | MG TABS | times [...] 1 tab | | | PSEUDOEPHE | 0967606730 | Phan | | ARVIND HCL | by mouth | | | ARVIND HCL | 0 | Marianakauf | | 30 MG TABS | four times | | | | | f WATER SYSTEMS DESIGNER | | | per day | [...] Inhale 2 | | | ALBUTEROL | 5743321840 | Malachi Levin | | 108 (90 [...] Take 1 | | | DOXYCYCLIN | 4529968004 | Malachi Levin | | E HYCLATE [...] 4-6 per | | | HYDROCODON | 4879058400 | Prabhakar | | 5-325 MG | day | | | E-ACETAMIN | 1 | VanAnrooy | | TABS | | | | OPHEN | | MD | + + + + + + + + | MOBIC 7.5 | 1 tablet | | | MELOXICAM | 1959079240 | Phan | | MG TABS | by mouth | | | | 5 | Middlekauf | | | daily. | | | | | f WATER SYSTEMS DESIGNER | | | Must last | | | | | | | | 30 days. | | | | | | + + + + + + + + | CLINDAMYCI | 1 tab by | | | CLINDAMYCI | 3340739318 | Malachi Levin | | N HCL [...] | prn | | | MAGNESIUM | 8337455994 | Melvina | | OF | constipati [...] By mouth | | | IBUPROFEN | 9409348153 | Andriy | | 200 MG | 3 times a | | | | 8 | Padovich | | TABS | day | | | | | WATER SYSTEMS DESIGNER | + + + + + + + + | UDS | 1.2.15 | | | UDDameon | | Prabhakar | | | consistent | | | | | Uzma | | | | | | | | MD | + + + + + + + + | CHANTIX 1 | 1 tab two | | | VARENICLIN | 8267708215 | Karma | | MG TABS | times per | | | E TARTRATE | 6 | Berenice CONRAD | | | day | | | | | | + + + + + + + + | HYDROCODON | Take 1 tab | | | HYDROCODON | 4268427139 | Karma | | E-ACETAMIN | po [...] 1 tab | | | WARFARIN | 9203546094 | Florecita | | MG TABS | daily | | | SODIUM | 0 | Mariselahr WATER SYSTEMS DESIGNER-C | + + + + + + + + | IBUPROFEN | three | | | IBUPROFEN | 0084242501 | Rudy | | 600 MG | [...] | | | | | | | WATER SYSTEMS DESIGNER | + + + + + + + + | ELAVIL 25 | Take 1 | | | AMITRIPTYL | 1472105402 | Rudy | | MG TABS | tab po QHS | | | INE HCL | 0 | Yaquelin | | | | | | | | MD | + + + + + + + + | TRAMADOL | 1-2 TAB | | | TRAMADOL | 3751861848 | Rudy | | HCL 50 MG | BID PRN | | | HCL | 0 | Yaquelin | | TABS | PAIN | | | | | MD | + + + + + + + + | LISINOPRIL | 1 tab one | | | LISINOPRIL | 6675690216 | Rudy | | 20 MG | time per | | | | 4 | Yaquelin | | TABS | day | | | | | MD | + + + + + + + + | CHANTIX 1 | take 1tab | | | VARENICLIN | 6892002225 | Rudy | | MG TABS | po daily | | | E TARTRATE | 6 | Yaquelin | | | | | | | | MD | + + + + + + + + | TRAMADOL | 1 TAB BID | | | TRAMADOL | 4568740584 | Rudy | | HCL 50 MG | PRN PAIN | | | HCL | 0 | Yaquelin | | TABS | | | | | | MD | + + + + + + + + | NORCO | 1tab by | | | HYDROCODON | 7086758955 | Rudy | | 7.5-325 MG | [...] TAB Q6 | | | TRAMADOL | 6266431189 | Prabhakar | | HCL 50 MG | HRS PRN | | | HCL | 0 | VanAnrooy | | TABS | PAIN | | | | | MD | + + + + + + + + | NORCO | 1tab po | | | HYDROCODON | 4362598782 | Rudy | | 7.5-325 MG | [...] tab po | | | HYDROCODON | 5014372055 | Rudy | | 5-325 MG | QD | | | E-ACETAMIN | 1 | Yaquelin | | TABS | | | | OPHEN | | MD | + + + + + + + + | TRAMADOL | take 1 tab | | | TRAMADOL | 7417805387 | Rudy | | HCL 50 MG | nightly | | | HCL | 0 | Yaquelin | | TABS | | | | | | MD | + + + + + + + + | NORCO | 1 every 8 | | | HYDROCODON | 5745692139 | Prabhakar | | 5-325 MG | hours as | | | E-ACETAMIN | 1 | VanAnrooy | | TABS | needed | | | OPHEN | | MD | + + + + + + + + | OXYCODONE | 1 tab q 4 | | | OXYCODONE | 5495467843 | Florecita | | HCL 15 MG | hrs PRN | | | HCL | 1 | Suhr WATER SYSTEMS DESIGNER-C | | TABS | pain | | | | | | + + + + + + + + | [facility] LYSINE | take 1 tab | | | LYSINE | 9617898367 | Rudy | | 1000 MG | [...] tab q | | | OXYCODONE- | 8790374199 | Florecita | | 7.5-325 MG | 4 hrs for | | | ACETAMINOP | 0 | Suhr WATER SYSTEMS DESIGNER-C | | TABS | pain, hold | | | HEN | | | | | if | | | | | | | | somnolent | | | | | | | | or asleep. | | | | | | + + + + + + + + | PERCOCET | 1-2 tab q | | | OXYCODONE- | 6697410378 | Florecita | | 7.5-325 MG | 4 hrs PRN | | | ACETAMINOP | 0 | Suhr WATER SYSTEMS DESIGNER-C | | TABS | pain, | | | HEN | | | | | dispense | | | | | | | | #84 | | | | | | + + + + + + + + | TESSALON | Take three | | | BENZONATAT | 6456764546 | Loraine | | PERLLOUISA 100 | [...] 1tab po | | | VARENICLIN | 4533781898 | Rudy | | MG TABS | bid | | | E TARTRATE | 6 | Yaquelin | | | | | | | | MD | + + + + + + + + | HYDROCODON | Take 1 tab | | | HYDROCODON | 6123575280 | Rudy | | E-ACETAMIN | po [...] po qd | | | LISINOPRIL | 1451310231 | Rudy | | 20 MG | | | | | 1 | Yaquelin | | TABS | | | | | | MD | + + + + + + + + | TRAMADOL | 1 TAB Q6 | | | TRAMADOL | 0264312688 | Prabhakar | | HCL 50 MG | HRS PRN | | | HCL | 0 | VanAnrooy | | TABS | PAIN | | | | | MD | + + + + + + + + | CEPACOL | 1 lozenge | | | BENZOCAINE | 0507660981 | Phan | | SORE | every 2 | | | -MENTHOL | 0 | Middlekauf | | THROAT | hours as | | | | | f WATER SYSTEMS DESIGNER | | 10-2.1 MG | needed for | | | | | | | LOZG | sore | | | | | | | | throat | | | | | | + + + + + + + + | GUAIFENESI | 1 tab | | | GUAIFENESI | 3739123706 | Phan | | N 400 MG | every 4 | | | N | 0 | Middlekauf | | TABS | hours as | | | | | f WATER SYSTEMS DESIGNER | | | needed for | | | | | | | | | | | | | | | | cough/yaw | | | | | | | | estion | | | | | | + + + + + + + + | PSEUDOEPHE | Take 1 tab | | | PSEUDOEPHE | 8912057932 | Malachi Levin | | ARVIND HCL [...] Take 3 | | | PREDNISONE | 9905176089 | Malachi Levin | | 20 MG [...] Take 1 | | | GABAPENTIN | 0300924198 | Malachi Levin | | 300 MG [...] 1 tab | | | OXYCODONE- | 8084918958 | Malachi Levin | | ACETAMINOP | [...] 1 tab | | | CYCLOBENZA | 1315407694 | Malachi Levin | | YESSY HCL [...] po bid | | | HYDROCODON | 0803362622 | Tommy | | E-ACETAMIN | prn [...] 1 tablet | | | MELOXICAM | 8240327727 | Jovany | | MG TABS | [...] | | | | | | | WATER SYSTEMS DESIGNER | + + + + + [...] | | | | | | | WATER SYSTEMS DESIGNER | +---------+ + + + + + | CODEINE | Itch | | Critical | No Longer | Skye | | | | | | Active | Epifanio WATER SYSTEMS DESIGNER | +---------+ + + + + + | SULFA | Break out in | | Critical | | Skye | | | hives | | | | Epifanio WATER SYSTEMS DESIGNER | +---------+ + + + + [...] + + +--------+ +---+---+ + | | [place] | 156 | ms | | | [place] | | | INTERVAL | | | [...] +---+ + + + | Office Visit: [employer] ARCHITECT 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- lft hip pain | + [...] Visit: Hip Pain | + + + +---------+-----+---+---+---+ + | | DIET | yes | | | | Dietary | | | VETERINARIAN ASSISTANT | | | | | management | [...] | | | | ) | + +---------+-----+---+---+---+ + + + | Rx Refill: Antonio Request for CHANADELIA 1MG TABS | + + + +--------+ +---+---+---+ + | | [facility] | [id number] | | | B | e-scripts | [...] | | | | | | | [id number]` | | | | | | | | [id number] | | | | | | | [...] +-------+---+---+ + + + | Office Visit: pain [...] [place], | | | | [address] [facility], | | | | [place], [address] | | | | | + + [...] | + + + + + | CPT-96636 | Theraputic | | | | | Injection (IM/SubQ) | | | + + + + + | CPT-J1885 | Toradol 15mg | | | + + + + + | CPT-58556 | Urine Toxicology | | | | | Screen, Multiple | | | | | Drug Classes by | | | | | Direct Optical | | | | | Observation | | | + + + + + | CPT-33289 | [address] [facility] Individual | | | | | Therapy (53-112) | | | | | No POS Phone | | | + + + + + | CPT-07764 | XR Hip W/Pelvis | | | | | 2-3V-Lt | | | + + + + + | CPT-37486 | Theraputic | | | | | Injection (IM/SubQ) | | | + + + + + | CPT-J1885 | Toradol 15mg | | | + + + + + | CPT-97233 | Urine Toxicology | | | | | Screen, Multiple | | | | | Drug Classes by | | | | | Direct Optical | | | | | Observation | | | + + + + + | CPT-41072 | Theraputic | | | | | Injection (IM/SubQ) | | | + + + + + | CPT-J1885 | Toradol 15mg | | | + + + + + | CPT-17366 | Theraputic | | | | | Injection (IM/SubQ) | | | + + + + + | CPT-J1885 | Toradol 15mg | | | + + + + + | CPT-01268 | Theraputic | | | | | Injection (IM/SubQ) | | | + + + + + | CPT-J1885 | Toradol 15mg | | | + + + + + | CPT-69660 | XR Hip W/Pelvis | | | | | 2-3V-Lt | | | + + + + + | CBC AUTO 98801 | CBC w/ Auto Diff | | | + + + + + | CPT-45943 | XR Hip W/Pelvis | | | | | 2-3V-Lt | | | + + + + + | CBC AUTO 90249 | CBC w/ Auto Diff | | | + + + + + | M NOS MRSA 31651 | Nose Culture, MRSA | | | | | Only | | | + + + + + | CHEM 8 71594 | Basic Metabolic | | | | | Panel | | | + + + + + | CPT-35633 | Health Risk | | | | | Assessment | | | + + + + + | GLYCO HGB 39677 | Glyco Hemoglobin, | | | | | A1C | | | + + + + + | CPT-25953 | Health Risk | | | | | Assessment | | | + + + + + | CPT-28583 | Health Risk | | | | | Assessment | | | + + + + + | U NICOTINE 55425 | Cotinine | | | + + + + + | 79844 | MR Hip-WO Con-Lt | | | + + + + + | CPT-38653 | XR Hip W/Pelvis | | | | | 2-3V-Lt | | | + + + + + | CPT- 16954 | Administration | | | | | (14231) | | | + + + + + | CPT-J1885 | Toradol Inj. 60mg | | | + + + + + | CPT-40498 | Urine Tox, multiple | | | | | drug classes | | | + + + + + | 10181 | XR Foot 2V-Rt | | | + + + + + | [id number] | [Recorded for CQM] | | | | | Pedal pulse taking | | | | | (procedure) | | | + + + + + | [id number] | [Recorded for CQM] | | | | | Documentation of | | | | | current medications | | | | | (procedure) | | | + + + + + | [id number] | [Recorded for CQM] | | | | | Health-related | | | | | behavior | | | + + + + + | [id number] | [facility] Generic Patient | | | | | Encounter Service | | | | | (from patch) | | | + + + + + | [id number] | [Recorded for CQM] | | | | | Pedal pulse taking | | | | | (procedure) | | | + + + + + | [id number] | [Recorded for CQM] | | | | | Documentation of | | | | | current medications | | | | | (procedure) | | | + + + + + | [id number] | [Recorded for CQM] | | | | | Drug or Medication | | | + + + + + | [id number] | [Recorded for CQM] | | | | | Details of drug | | | | | misuse behavior | | | + + + + + | [id number] | [Recorded for CQM] | | | | | Never smoker | | | + + + + + | [id number] | [Recorded for CQM] | | | | | Never smoked | | | | | tobacco (finding) | | | + + + + + | [phone] | [Recorded for CQM] | | | | | Tobacco use and | | | | | exposure | | | + + + + + | [id number] | [Recorded for CQM] | | | | | Alcohol intake | | | + + + + + | [id number] | [Recorded for CQM] | | | | | Allergy | | | + + + + + | [phone] | [Recorded for CQM] | | | | | Alcohol intake | | | + + + + + | [id number] | [Recorded for CQM] | | | | | Tobacco use and | | | | | exposure | | | + + + + + | [id number] | [Recorded for CQM] | | | | | Details of drug | | | | | misuse behavior | | | + + + + + | [id number] | [Recorded for CQM] | | | | | Drug or Medication | | | + + + + + | [id number] | [Recorded for CQM] | | | | | Current Light | | | | | tobacco smoker | | | + + + + + | [id number] | [Recorded for CQM] | | | | | Light tobacco | | | | | smoker (finding) | | | + + + + + | [id number] | [Recorded for CQM] | | | | | Documentation of | | | | | current medications | | | | | (procedure) | | | + + + + + | [id number] | [Recorded for CQM] | | | | | Pedal pulse taking | | | | | (procedure) | | | + + + + + | [id number] | XR Foot 2V-Rt | | | [...] | 261 | [lb_av] | weight E&M - | [...]
--- OUTSIDE RECORDS SUMMARY | ~2019-09-25 | XMS ---
Demographics + + + | Address | [address] | | | [facility] [place] [address] | + + + | Home Phone | | + + + | Preferred Language | Unknown | + + + | Marital Status | S | + + + | Yarsanism Affiliation [...] Carmelo Gurrola | | | [place] [address] | + + + | Phone | Unavailable | + + + Care Team Providers + + + + | Care Stone Belt Sander Name | Role | Phone | + [...] 5.6% Current | | | Shoe Gear: Cam Boot New Patient LEFT | | | foot and ankle pain. Patient is in office | | | alone and is in a lot of pain today. Aks | | | for a prescription for more [place]. Feels | | | that Ibuprofen and Tylenol is not working | | | well enough for him. Current | | | Medications TYLENOL 8 [...] HCL) ; Route: | | | ORAL PERCOCET 5-325 MG ORAL TABLET | | | (OXYCODONE-ACETAMINOPHEN) ; Route: ORAL | | | NORCO 5-325 MG ORAL TABLET | | | (HYDROCODONE-ACETAMINOPHEN) one tab by | | | mouth QHS PRN pain; Route: ORAL Current | | | Allergies SULFA (SULFADIAZINE) | | | (Critical) Patient states no changes in | | | medication or allergies. | | | .......................................... | | | .........................[facility]e Mac | | | [facility] August 29, 2019 1:44 PM Medical | | | History Sinus Mass 05/2017 TOTAL HIP | | | ARTHROPLASTY, LEFT (ICD-V43.64) | | | (NPY96-X21.642) HYPERTENSION (ICD-401.9) | | | (DMH28-H29) ELEVATED BLOOD SUGAR | | | (ICD-790.29) (XVV81-F11.9) NICOTINE | | | ADDICTION (ICD-305.1) (LEL28-F27.200) | | | AVASCULAR NECROSIS OF FEMORAL HEAD | | | (ICD-733.42) (POA35-B10.059) OTHER | | | OSTEONECROSIS, LEFT FEMUR (UEA80-U88.852) | | | OPIOID ABUSE, CONTINUOUS (ICD-305.51) | | | (MXY86-W25.10) HIP PAIN, LEFT | | | (ICD-719.45) (HNW76-S63.552) LESION OF | | | PLANTAR NERVE [...] brother Social History | | | 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 Weight: 235.8 | | | lbs. BMI: 33.01 Wt ch.60 BMI | | | Recommendation: Physical Activity Blood | | | Pressure Refusal: Medical Reasons | | | Vitals entered by: Skye RAYMOND on | | | August 29, 2019 1:43 PM Review of | | | Symptoms None. All other systems are | | | [...] | .......................................... | | | .........................Massiel Gage [facility] | | | September 05, 2017 11:28 [...] TENDINITIS- LEFT LEG | | | (ICD-726.79) (SVP23-Q40.72) Mr. Reid | | | was examined today, radiographs were | | | reviewed, and discussion was had regarding | | | continuing care. --Patient was reminded | | | to wear his CAM boot at all times, | | | including sleep. -He may remove it to | | | shower if he is seated, but will put it | | | back on immediately following his shower. | | | No unprotected weightbearing. --Suspect | | | stress fracture, however this would be odd | | | for the location of his pain. | | | -----Radiographs will be obtained next | | | visit. 3 standard views of the LEFT foot, | | | simulated weightbearing. --Prescription | | | for narcotic pain medication was NOT | | | provided today following discussion about | | | pain management for tendinitis or | | | fractures. Meaningful Use Med List: | | | (Reconciled) ] | + + + Assessments No information available. Chief Complaint + + + | Chief Complaint Description | Start Date | + + + | New Patient LEFT foot and ankle pain | | + + + History of Past Illness No information available."
--- OUTSIDE RECORDS SUMMARY | ~2019-09-25 | XMS | Continuity of Care Document ---
Demographics + + + | Address | [address] | | | [place] [address] | + + + | Home Phone | | + + + | Preferred Language | Unknown | + + + | Marital Status | Unknown | + + + | Druze Affiliation | Unknown | + + + | Race | Unknown | + + + | Ethnic Group | Unknown | + + + Author + + + | Author | [facility] | + + + | Organization | [facility] | + + + | Address | [address] | | | [place] [address] | + + + | Phone | | + + + Support + + + + + | Name | Relationship | Address | Phone | + + + + + | NEHEMIAS Bergeron | Caregiver | [facility] | | | | | [place] [address] | | + + + + + | Jose Alejandro España | Caregiver | [facility] | | | | | [place] [address] | | + + + + + | DEBBIE KUMAR | Next Of Kin | [place] [address] | | + + + + + Care Team Providers + + + + | Care Meat Smoker Name | Role | Phone | + + + + | NEHEMIAS Bergeron | Unavailable | | + + + + Insurance Providers + + + + + | Payer Name | Policy Number | Subscriber Name | Relationship | + + + + + | [facility] | [id number] | BOBBY STODDARD | SELF | + [...] + +------+-------+-------+ + + + + | Ketorola | 10 | MG | ORAL | Four | 20 | | 09/10/18 | | c | | | | Times a | | | | | Trometha | | | | Day | | | | | mine | | | | | | | | | (Toradol | | | | | | | | | ) 10 MG | | | | | | | | | TAB | | | | | | | | + +------+-------+-------+ + + + + | PROCHLOR | 10 | MG | ORAL | Every 6 | 20 | | 09/10/18 | | PERAZINE | | | | Hours | | | | | MALEATE | | | | | | | | | | | | | | | | | | (COMPAZI | | | | | | | | | NE) 10 | | | | | | | [...] needed for Pain | | | | ([place] 5-325 | | | | | Tablet) 1 Each | | | | | Tablet Tablet, 1 | | | | | Tab Oral | | | | + + + + + | Hydrocodone | Every 4 Hours as | 01/13/15 | Discontinued | | Bit/Acetaminophen | Needed as needed | | | | ([place] 5-325 | for PAIN | | | | Tablet) 5 Mg-325 Mg | | | | | Tablet Tablet, 1-2 | | | | | Tab Oral | | | | + + + + + | Hydrocodone/Acetami | | Unknown | Discontinued | | nophen ([place] | | | | | 5MG-325MG) 5 [...] Mg | Pain | | | | ([place] 10-325 Mg) | | | | | 10 Mg-325 Mg Tab | | | | | Tab, 0.5-1 Tab Oral | | | | + + + + + | Hydrocodone/Apap | Every 6 Hours | 08/15/16 | Discontinued | | 5-325 Mg ([place] | | | | | 5-325 Mg) [...] Tab.rapdis | | | | | Tab.geovanni, 1 [...] Irritation | | | | Soln, 1 [place] Nasal | | | | + + [...] + + + | Discharge Date | 09/10/18 | + + + | Disposition | HOME | + + + | Condition at Discharge | Good | + + + | Prescriptions | See Medications Section | + + + | Referrals | Marisel Bergeron - | + + + | Additional Instructions/Education | take the Compazine every 6 hours routinely | | | over the next couple of days. Toradolfor | | | pain. Clear liquid diet and maintain | | | hydration and bowel rest. Call yourprimary | | | care this afternoon or tomorrow morning | | | and schedule follow-upappointment for | | | later in the week | + + + Functional Status No functional status results. Allergies, Adverse Reactions, Alerts + +---------+ + +--------+ + | Allergen | Type | Severity | Reaction | Status | Last Updated | + +---------+ + +--------+ + | Sulfa | Allergy | Unknown | ANAPHYLAXIS, | Active | 09/10/18 | | (Sulfonamide | | | HIVES | | | | | | | | | | | Antibiotics) | | | | | | + +---------+ + +--------+ + Immunizations No Known History of Immunizations. Vital Signs + + + + | Vital Reading | Collection Date/Time | Result | + + + + | Blood Pressure | 09/10/18 10:54am | 126/87 | + + + + | Blood Pressure Source | 06/17/16 4:24am | Right Arm | + + + + | Temperature | 09/10/18 10:03am | 97.9 F | + + + + | Temperature Source | 09/10/18 10:03am | Temporal | + + + + | Respiratory Rate | 09/10/18 10:54am | 30 | + + + + | Pulse Rate | 09/10/18 10:54am | 112 | + + + + | Bedside Pulse Oximetry | 09/10/18 10:54am | 99 | + + + + | Height | 09/10/18 10:03am | 6 ft 1 in | + + + + | Height | 09/10/18 10:03am | 185.42 cm | + + + + | Weight | 09/10/18 10:03am | 225 lb | + + + + | Weight | 09/10/18 10:03am | 102.06 kg | + + + + | Body Mass Index | 09/10/18 10:03am | 29.7 kg/m2 | + + + [...] + +-------+ + + + + | Urine | Clean | | | | 09/10/18 | 09/10/18 | | | Source | Catch | | | | 10:55am | 11:36am | | + + + +-------+ + + + + | Urine | Yellow | | | P-Yellow | 09/10/18 | 09/10/18 | | | Color | | | | | 10:55am | 11:36am | | + + + +-------+ + + + + | Urine | Clear | | | Clear | 09/10/18 | 09/10/18 | | | Appearan | | | | | 10:55am | 11:36am | | | ce | | | | | | | | + + + +-------+ + + + + | Urine | 1.010 | | | 1.003-1. | 09/10/18 | 09/10/18 | | | Specific | | | | 022 | 10:55am | 11:36am | | | [place] | | | | | | | | + + + +-------+ + + + + | Urine pH | 7.0 | | | 5.0-8.0 | 09/10/18 | 09/10/18 | | | | | | | | 10:55am | 11:36am | | + + + +-------+ + + + + | Urine | Neg | | | Neg | 09/10/18 | 09/10/18 | | | Leukocyt | | | | | 10:55am | 11:36am | | | e | | | | | | | | | Esterase | | | | | | | | + + + +-------+ + + + + | Urine | Neg | | | Neg | 09/10/18 | 09/10/18 | | | Nitrite | | | | | 10:55am | 11:36am | | + + + +-------+ + + + + | Urine | 1+ | | * | Neg | 09/10/18 | 09/10/18 | | | Protein | | | | | 10:55am | 11:36am | | + + + +-------+ + + + + | Urine | Neg | | | Neg | 09/10/18 | 09/10/18 | | | Glucose | | | | | 10:55am | 11:36am | | + + + +-------+ + + + + | Urine | Neg | | | Neg | 09/10/18 | 09/10/18 | | | Ketones | | | | | 10:55am | 11:36am | | + + + +-------+ + + + + | Urine | NORM | | | Normal | 09/10/18 | 09/10/18 | | | Urobilin | | | | | 10:55am | 11:36am | | | ogen | | | | | | | | + + + +-------+ + + + + | Urine | Neg | | | Neg | 09/10/18 | 09/10/18 | | | Bilirubi | | | | | 10:55am | 11:36am | | | n | | | | | | | | + + + +-------+ + + + + | Urine | Neg | | | Neg | 09/10/18 | 09/10/18 | | | Blood | | | | | 10:55am | 11:36am | | + + + +-------+ + + + + | Urine | No | | | No | 09/10/18 | 09/10/18 | | | Culture | | | | | 10:55am | 11:36am | | | Indicate | | | | | | | | | d | | | | | | | | + + + +-------+ + + + + | White | 8.71 | K/mm3 | | 4.00-11. | 09/10/18 | 09/10/18 | | | Blood | | | | 30 | 10:07am | 10:25am | | | Count | | | | | | | | + + + +-------+ + + + + | Red | 5.34 | M/mm3 | | 4.30-5.9 | 09/10/18 | 09/10/18 | | | Blood | | | | 0 | 10:07am | 10:25am | | | Count | | | | | | | | + + + +-------+ + + + + | Hemoglob | 16.0 | g/dL | | 13.5-17. | 09/10/18 | 09/10/18 | | | in | | | | 5 | 10:07am | 10:25am | | + + + +-------+ + + + + | Hematocr | 48.0 | % | | 37.0-53. | 09/10/18 | 09/10/18 | | | it | | | | 0 | 10:07am | 10:25am | | + + + +-------+ + + + + | Mean | 90 | fL | | 80-100 | 09/10/18 | 09/10/18 | | | Corpuscu | | | | | 10:07am | 10:25am | | | lar | | | | | | | | | Volume | | | | | | | | + + + +-------+ + + + + | Mean | 30.0 | pg | | 26.0-34. | 09/10/18 | 09/10/18 | | | Corpuscu | | | | 0 | 10:07am | 10:25am | | | lar | | | | | | | | | Hemoglob | | | | | | | | | in | | | | | | | | + + + +-------+ + + + + | Mean | 33.3 | g/dL | | 31.5-36. | 09/10/18 | 09/10/18 | | | Corpuscu | | | | 5 | 10:07am | 10:25am | | | lar | | | | | | | | | Hemoglob | | | | | | | | | in | | | | | | | | | Concent | | | | | | | | + + + +-------+ + + + + | RDW | 44.5 | fL | | 35.1-46. | 09/10/18 | 09/10/18 | | | Standard | | | | 3 | 10:07am | 10:25am | | | | | | | | | | | | Deviatio | | | | | | | | | n | | | | | | | | + + + +-------+ + + + + | RDW | 13.4 | % | | 11.7-14. | 09/10/18 | 09/10/18 | | | Coeffici | | | | 2 | 10:07am | 10:25am | | | ent of | | | | | | | | | Variatio | | | | | | | | | n | | | | | | | | + + + +-------+ + + + + | Platelet | 357 | K/mm3 | | 150-400 | 09/10/18 | 09/10/18 | | | Count | | | | | 10:07am | 10:25am | | + + + +-------+ + + + + | Mean | 9.1 | fL | | 9.1-12.4 | 09/10/18 | 09/10/18 | | | Platelet | | | | | 10:07am | 10:25am | | | Volume | | | | | | | | + + + +-------+ + + + + | Differen | Auto | | | | 09/10/18 | 09/10/18 | | | tial | | | | | 10:07am | 10:25am | | | Method | | | | | | | | + + + +-------+ + + + + | Neutroph | 59 | % | | 41-73 | 09/10/18 | 09/10/18 | | | ils (%) | | | | | 10:07am | 10:25am | | | (Auto) | | | | | | | | + + + +-------+ + + + + | Lymphocy | 33 | % | | 21-46 | 09/10/18 | 09/10/18 | | | wicho (%) | | | | | 10:07am | 10:25am | | | (Auto) | | | | | | | | + + + +-------+ + + + + | Monocyte | 6 | % | | 4-13 | 09/10/18 | 09/10/18 | | | s (%) | | | | | 10:07am | 10:25am | | | (Auto) | | | | | | | | + + + +-------+ + + + + | Eosinoph | 0 | % | | 0-6 | 09/10/18 | 09/10/18 | | | ils (%) | | | | | 10:07am | 10:25am | | | (Auto) | | | | | | | | + + + +-------+ + + + + | Basophil | 1 | % | | 0-2 | 09/10/18 | 09/10/18 | | | s (%) | | | | | 10:07am | 10:25am | | | (Auto) | | | | | | | | + + + +-------+ + + + + | Immature | 0 | % | | 0-1 | 09/10/18 | 09/10/18 | | | | | | | | 10:07am | 10:25am | | | Granuloc | | | | | | | | | yte % | | | | | | | | | (Auto) | | | | | | | | + + + +-------+ + + + + | Nucleate | 0.0 | /100 WBC | | 0.0-0.2 | 09/10/18 | 09/10/18 | | | d Red | | | | | 10:07am | 10:25am | | | Blood | | | | | | | | | Cells % | | | | | | | | + + + +-------+ + + + + | Absolute | 5.13 | K/mm3 | | 1.96-9.1 | 09/10/18 | 09/10/18 | | | | | | | 5 | 10:07am | 10:25am | | | Neutroph | | | | | | | | | ils | | | | | | | | | (auto) | | | | | | | | + + + +-------+ + + + + | Absolute | 2.90 | K/mm3 | | 0.84-5.2 | 09/10/18 | 09/10/18 | | | | | | | 0 | 10:07am | 10:25am | | | Lymphocy | | | | | | | | | wicho | | | | | | | | | (auto) | | | | | | | | + + + +-------+ + + + + | Absolute | 0.55 | K/mm3 | | 0.16-1.4 | 09/10/18 | 09/10/18 | | | | | | | 7 | 10:07am | 10:25am | | | Monocyte | | | | | | | | | s (auto) | | | | | | | | + + + +-------+ + + + + | Absolute | 0.02 | K/mm3 | | 0.00-0.6 | 09/10/18 | 09/10/18 | | | | | | | 8 | 10:07am | 10:25am | | | Eosinoph | | | | | | | | | ils | | | | | | | | | (auto) | | | | | | | | + + + +-------+ + + + + | Absolute | 0.08 | K/mm3 | | 0.00-0.2 | 09/10/18 | 09/10/18 | | | | | | | 3 | 10:07am | 10:25am | | | Basophil | | | | | | | | | s (auto) | | | | | | | | + + + +-------+ + + + + | Absolute | 0.03 | K/mm3 | | 0.00-0.1 | 09/10/18 | 09/10/18 | | | | | | | 0 | 10:07am | 10:25am | | | Immature | | | [...] 0.00 | K/mm3 | | 0.00-0.0 | 09/10/18 | 09/10/18 | | | d RBC | | | | 2 | 10:07am | 10:25am | | | Absolute | | | | | | | | | Count | | | | | | | | | (auto) | | | | | | | | + + + +-------+ + + + + | Sodium | 140 | mmol/L | | 136-145 | 09/10/18 | 09/10/18 | | | Level | | | | | 10:07am | 10:42am | | + + + +-------+ + + + + | Potassiu | 3.7 | mmol/L | | 3.5-5.5 | 09/10/18 | 09/10/18 | | | m Level | | | | | 10:07am | 10:42am | | + + + +-------+ + + + + | Chloride | 104 | mmol/L | | 98-108 | 09/10/18 | 09/10/18 | | | Level | | | | | 10:07am | 10:42am | | + + + +-------+ + + + + | Carbon | 27 | mmol/L | | 21-32 | 09/10/18 | 09/10/18 | | | Dioxide | | | | | 10:07am | 10:42am | | | Level | | | | | | | | + + + +-------+ + + + + | Anion | 9 | mmol/L | | 6-16 | 09/10/18 | 09/10/18 | | | Gap | | | | | 10:07am | 10:42am | | + + + +-------+ + + + + | Glucose | 83 | mg/dL | | 70-99 | 09/10/18 | 09/10/18 | | | Level | | | | | 10:07am | 10:42am | | + + + +-------+ + + + + | Blood | 13 | mg/dL | | 8-24 | 09/10/18 | 09/10/18 | | | Urea | | | | | 10:07am | 10:42am | | | Nitrogen | | | | | | | | + + + +-------+ + + + + | Creatini | 0.80 | mg/dL | | 0.60-1.2 | 09/10/18 | 09/10/18 | | | ne | | | | 0 | 10:07am | 10:42am | | + + + +-------+ + + + + | BUN/Crea | 16.2 | % | | 12.0-20. | 09/10/18 | 09/10/18 | | | tinine | | | | 0 | 10:07am | 10:42am | | | Ratio | | | | | | | | + + + +-------+ + + + + | Glomerul | >60 | | | 60- | 09/10/18 | 09/10/18 | Non-Afri | | ar | | | | | 10:07am | 10:42am | can | | Filtrati | | | | | | | [place] | | on Rate | | | | | | | GFR | | Calc | | | | | | | CalcFor | | | | | | | | | | | | | | | | | | [place] | | | | | | | [...] + + + + | Calcium | 8.8 | mg/dL | | 8.5-10.1 | 09/10/18 | 09/10/18 | | | Level | | | | | 10:07am | 10:42am | | + + + +-------+ + + + + | Total | 7.8 | g/dL | | 6.4-8.2 | 09/10/18 | 09/10/18 | | | Protein | | | | | 10:07am | 10:42am | | + + + +-------+ + + + + | Albumin | 3.8 | g/dL | | 3.4-5.0 | 09/10/18 | 09/10/18 | | | | | | | | 10:07am | 10:42am | | + + + +-------+ + + + + | Globulin | 4.0 | g/dL | | 2.2-4.0 | 09/10/18 | 09/10/18 | | | | | | | | 10:07am | 10:42am | | + + + +-------+ + + + + | Albumin/ | 1.0 | | | 0.8-1.8 | 09/10/18 | 09/10/18 | | | Globulin | | | | | 10:07am | 10:42am | | | Ratio | | | | | | | | + + + +-------+ + + + + | Total | 0.4 | mg/dL | | 0.1-1.0 | 09/10/18 | 09/10/18 | | | Bilirubi | | | | | 10:07am | 10:42am | | | n | | | | | | | | + + + +-------+ + + + + | Alkaline | 60 | U/L | | 50-136 | 09/10/18 | 09/10/18 | | | | | | | | 10:07am | 10:42am | | | Phosphat | | | | | | | | | ase | | | | | | | | + + + +-------+ + + + + | Aspartat | 29 | U/L | | 12-37 | 09/10/18 | 09/10/18 | | | e Amino | | | | | 10:07am | 10:42am | | | Transf | | | | | | | | | (AST/SGO | | | | | | | | | T) | | | | | | | | + + + +-------+ + + + + | Alanine | 32 | U/L | | 12-78 | 09/10/18 | 09/10/18 | | | Aminotra | | | | | 10:07am | 10:42am | | | nsferase | | | | | | | | | | | | | | | | | | (ALT/SGP | | | | | | | | | T) | | | | | | | | + + + +-------+ + + + + | Lipase | 131 | U/L | | 73-393 | 09/10/18 | 09/10/18 | | | | | | | | 10:07am | 10:42am | | + + + +-------+ + + + + | Campylob | Not | | | NOT | 09/02/18 | 09/02/18 | | | acter | Detected | | | DETECT | 12:31pm | 2:07pm | | | (PCR)(LA | | | | | | | | | B) | | | | | | | | + + + +-------+ + + + + | Clostrid | Not | | | NOT | 09/02/18 | 09/02/18 | | | ium | Detected | | | DETECT | 12:31pm | 2:07pm | | | difficil | | | | | | | | | e | | | | | | | | | (PCR)(LA | | | | | | | | | B) | | | | | | | | + + + +-------+ + + + + | Stool | Not | | | NOT | 09/02/18 | 09/02/18 | | | Plesiomo | Detected | | | DETECT | 12:31pm | 2:07pm | | | jorge | | | | | | | | | shigello | | | | | | | | | ides PCR | | | | | | | | + + + +-------+ + + + + | Stool | Not | | | NOT | 09/02/18 | 09/02/18 | | | Salmonel | Detected | | | DETECT | 12:31pm | 2:07pm | | | la PCR | | | | | | | | + + + +-------+ + + + + | Stool | Detected | | * | NOT | 09/02/18 | 09/02/18 | | | Yers[place] | | | | DETECT | 12:31pm | 2:07pm | | | | | | | | | | | | enteroco | | | | | | | | | litica | | | | | | | | | (PCR) | | | | | | | | + + + +-------+ + + + + | Vibrio | Not | | | NOT | 09/02/18 | 09/02/18 | | | species | Detected | | | DETECT | 12:31pm | 2:07pm | | | DNA/RNA | | | | | | | | | (PCR) | | | | | | | | + + + +-------+ + + + + | Stool | Not | | | NOT | 09/02/18 | 09/02/18 | | | Vibrio | Detected | | | DETECT | 12:31pm | 2:07pm | | | cholerae | | | | | | | | | (PCR) | | | | | | | | + + + +-------+ + + + + | Stool | Not | | | NOT | 09/02/18 | 09/02/18 | | | Enteroag | Detected | | | DETECT | 12:31pm | 2:07pm | | | gregativ | | | | | | | | | e E. | | | | | | | | | coli PCR | | | | | | | | + + + +-------+ + + + + | Stool | Not | | | NOT | 09/02/18 | 09/02/18 | | | Enteroto | Detected | | | DETECT | 12:31pm | 2:07pm | | | xigenic | | | | | | | | | Ecoli | | | | | | | | | PCR | | | | | | | | + + + +-------+ + + + + | Stool | Not | | | NOT | 09/02/18 | 09/02/18 | | | Enteropa | Detected | | | DETECT | 12:31pm | 2:07pm | | | thogenic | | | | | | | | | E. coli | | | | | | | | | (PCR | | | | | | | | + + + +-------+ + + + + | Stool E. | Not | | | NOT | 09/02/18 | 09/02/18 | | | coli | Detected | | | DETECT | 12:31pm | 2:07pm | | | Shiga | | | | | | | | | Toxins | | | | | | | | | (PCR) | | | | | | | | + + + +-------+ + + + + | Stool E | Not | | | NOT | 09/02/18 | 09/02/18 | | | coli | Detected | | | DETECT | 12:31pm | 2:07pm | | | O157 PCR | | | | | | | | + + + +-------+ + + + + | Stool | Not | | | NOT | 09/02/18 | 09/02/18 | | | Shigella | Detected | | | DETECT | 12:31pm | 2:07pm | | | /EIEC | | | | | | | | | (PCR) | | | | | | | | + + + +-------+ + + + + | Stool | Not | | | NOT | 09/02/18 | 09/02/18 | | | Cryptosp | Detected | | | DETECT | 12:31pm | 2:07pm | | | oridium | | | | | | | | | PCR | | | | | | | | + + + +-------+ + + + + | Stool | Not | | | NOT | 09/02/18 | 09/02/18 | | | Cyclospo | Detected | | | DETECT | 12:31pm | 2:07pm | | | ra | | | | | | | | | cayetane | | | | | | | | | nsis | | | | | | | | | (PCR) | | | | | | | | + + + +-------+ + + + + | Stool | Not | | | NOT | 09/02/18 | 09/02/18 | | | Entamoeb | Detected | | | DETECT | 12:31pm | 2:07pm | | | a | | | | | | | | | histolyt | | | | | | | | | ica | | | | | | | | | (PCR) | | | | | | | | + + + +-------+ + + + + | Stool | Not | | | NOT | 09/02/18 | 09/02/18 | | | Giardia | Detected | | | DETECT | 12:31pm | 2:07pm | | | Lamblia | | | | | | | | | PCR | | | | | | | | + + + +-------+ + + + + | Stool | Not | | | NOT | 09/02/18 | 09/02/18 | | | Adenovir | Detected | | | DETECT | 12:31pm | 2:07pm | | | us F | | | | | | | | | 40/41 | | | | | | | | | (PCR) | | | | | | | | + + + +-------+ + + + + | Stool | Not | | | NOT | 09/02/19 | 09/02/18 | | | Astrovir | Detected | | | DETECT | 12:31pm | 2:07pm | | | us (PCR) | | | | | | | | + + + +-------+ + + + + | Stool | Not | | | NOT | 09/02/18 | 09/02/18 | | | Noroviru | Detected | | | DETECT | 12:31pm | 2:07pm | | | s GI/GII | | | | | | | | | PCR | | | | | | | | + + + +-------+ + + + + | Stool | Not | | | NOT | 19 | 09/02/18 | | | Rotaviru | Detected | | | DETECT | 12:31pm | 2:07pm | | | s A PCR | | | | | | | | + + + +-------+ + + + + | Stool | Not | | | NOT | 19 | 09/02/18 | | | Sapoviru | Detected | | | DETECT | 12:31pm | 2:07pm | | | s (PCR) | | | | | | | | + + + +-------+ + + + + | Prothrom | 10.6 | Sec | | 9.7-11.5 | 09/02/18 | 09/02/18 | | | bin Time | | | | | 11:43am | 12:40pm | | + + + +-------+ + + + + | INR | 1.00 | | | | 09/02/18 | 09/02/18 | RECOMMEN | | Internat | | | | | 11:43am | 12:40pm | DED | | ional | | [...] + +-------+ + + + + | Activate | 25.4 | Sec | | 25.0-34. | 09/02/18 | 09/02/18 | | | d | | | | 0 | 11:43am | 12:49pm | Effectiv | | Partial | | | | | | | e | | Thrombop | | | | | | | 05/17/18, | | last | | | | | | | based | | Time | | | | | | | on the | | | | | | | | | heparin | | | | | | | | | response | | | | | | | | | | | | | | | | | | curveusi | | | | | | | | | ng the | | | | | | | | | current | | | | | | | | | lot of | | | | | | | | | PTT | | | | | | | | | reagent, | | | | | | | | | the PTT | | | | | | | | | | | | | | | | | | therapeu | | | | | | | | | ticrange | | | | | | | | | is 40.4 | | | | | | | | | - 55.1 | | | | | | | | | seconds. | + + + +-------+ + + + + Procedures No Known History of Procedures. Encounters + + + + + + | Encounter | Location | Arrival/Admit | Discharge/Depar | Attending | | | | Date | t Date | Provider | + + + + + + | Departed | [facility] | 09/10/18 9:15am | 09/10/18 4:06pm | [facility] | | Emergency | [facility] [place] | | | Dalia MD | + + + + + + | Departed | [facility] | 09/02/18 | 09/02/18 2:51pm | [facility] | | Emergency | [facility] [place] | 11:15am | | Bill Gómez MD | + + + + + +"
--- OUTSIDE RECORDS SUMMARY | ~2019-09-25 | XMS | Continuity of Care Document ---
Demographics + + + | Address | [address] | | | [place] [address] | + + + | Home Phone | | + + + | Preferred Language | Unknown | + + + | Marital Status | Never | + + + | Anglican Affiliation | Anabaptist (non-Zoroastrian, non-specific) | + + + | Race | White | + + + | Ethnic Group | Not or | + + + Author + + + | Author | [facility] | + + + | Organization | [facility] | + + + | Address | [address] | | | [place] [address] | + + + | Phone | | + + + Support + + + + + | Name | Relationship | Address | Phone | + + + + + | SRAVAN Frances | PRS | [address] | | | [place] | | [place] [address] | | + + + + + | NEHEMIAS Mann | PRS | [address] | | | | | [place] [address] | | + + + + + | DEBBIE KUMAR | PRS | [place] [address] | | + + + + + Care Team Providers + +------+ + | Care Steam Shovel Runner Name | Role | Phone | + +------+ + | Mackenzie PATIENT SERVICES TECHNICIAN Florecita B | PCP | | + +------+ + Allergies, Adverse Reactions, Alerts + + + + + + + + | Allergen | Type | Severity | Reaction | Last | Verified | Status | | | | | | Updated | | | | | | | | | | | | | | | | | | | + + + + + + + + | Sulfa | Allergy | Unknown | ANAPHYLAXI | June | Yes | Active | | (Sulfonami | | | SLINDY | 2019 | | | | de | | | | | | | | Antibiotic | | | | | | | | s) | | | | | | | | | | | | | | | + + + + + + + + Medications +-------+-------+-------+-------+-------+-------+-------+-------+-------+-------+-------+ | Medic | Statu | Dose | Units | Route | Sig | Qty | Days | Start | End | Instr | | ation | s | | | | | | | Date | Date | uctio | | | | | | | | | | | | ns | | | | | | | | | | | | | | | | | | | | | | | | | | | | | | | | | | | | | +-------+-------+-------+-------+-------+-------+-------+-------+-------+-------+-------+ | AmLOD | Activ | 5 | mg | Oral | Daily | | | | | | | IPine | e | | | | | | | | | | | | | | | | | | | | | | | Besyl | | | | | | | | | | | | ate | | | | | | | | | | | | (Norv | | | | | | | | | | | | asc 5 | | | | | | | | | | | | mg | | | | | | | | | | | | Tab) | | | | | | | | | | | | 5 MG | | | | | [...] | | | | | | | +-------+-------+-------+-------+-------+-------+-------+-------+-------+-------+-------+ | Cepha | Activ | 500 | mg | Oral | Four | 40 | | March | | | | lexin | e | | | | Times | | | | | | | | | | | | a | | | 12th, | | | | Monoh | | | | | Day | | | 2020 | | | | ydrat | | | | | | | | | | | | e | | | | | | | | 4:05a | | | | (Kefl | | | | | | | | m | | | | ex | | | | | | | | | | | | 500 | | | | | | | | | | | | mg | | | | | | | | | | | | Cap) | | | | | | | | | | | | 500 | | | | | | | | | | | | MG | | | | | | | | | | | | CAP | | | | | | | | | | | | | | | | | | | | | | | | | | | | | | | | | | | | | | | | | | | | | | | | | | | | | | | | | | | +-------+-------+-------+-------+-------+-------+-------+-------+-------+-------+-------+ | HYDRO | Activ | 0.5-1 | | Oral | Every | 10 | | March | | | | codon | e | | | | 4 | | | | | | | e/APA | | | | | Hours | | | 14th, | | | | P | | | | | as | | | 2020 | | | | (Norc | | | | | neede | | | | | | | o | | | | | d for | | | 1:21p | | | | 5/325 | | | | | Pain | | | m | | | | | | | | | | | | | | | | Table | | | | | | | | | | | | t) | | | | | | | | | | | | 5/325 | | | | | | | | | | | | MG | | | | | | | | | | | | TABLE | | | | | | | | | | | | T | | | | | | | | | | | | | | | | | | | | | | | | | | | | | | | | | | | | | | | | | | | | | | | +-------+-------+-------+-------+-------+-------+-------+-------+-------+-------+-------+ | Ibupr | Activ | 800 | mg | Oral | Every | 30 | | March | | | | ofen | e | | | | 8 | | | | | | | (Advi | | | | | Hours | | | 14th, | | | | l/Mot | | | | | as | | | 2020 | | | | rin | | | | | neede | | | | | | | 800 | | | | | d for | | | 1:21p | | | | mg | | | | | Pain | | | m | | | | Tab) | | | | | | | | | | | | 800 | | | | | | | [...] | | | | | | | +-------+-------+-------+-------+-------+-------+-------+-------+-------+-------+-------+ | Albut | Disco | 1-2 | | Respi | Every | 1 | | Septe | Septe | Pleas | | sharda | ntinu | | | rator | 6 | | | mber | mber | e | | (Prov | ed | | | y | Hours | | | 15th, | 27th, | instr | | entil | | | | (Inha | as | | | 2015 | 2015 | uct | | HFA | | | | latio | neede | | | | | patie | | Inhal | | | | n) | d for | | | 5:01p | 4:54p | nt on | | er) | | | | | SOB | | | m | m | use. | | 90 | | | | | | | | | | | | MCG | | | | | | | | | | | | INH | | | | | | | | | | | | | | | | | | | | | | | | | | | | | | | | | | | | | | | | | | | | | | | | | | | | | | | | | | | +-------+-------+-------+-------+-------+-------+-------+-------+-------+-------+-------+ | Amoxi | Disco | 500 | mg | Oral | Q8H | 30 | | Janua | Gabby | | | cilli | ntinu | | | | | | | ry | 28, | | | n 100 | ed | | | | | | | , | 2004 | | | % | | | | | | | | 2004 | | | | CAP | | | | | | | | 11:17 | 12:37 | | | | | | | | | | | am | pm | | | | | | | | | | | | | | | | | | | | | | | | | | | | | | | | | | | | | | +-------+-------+-------+-------+-------+-------+-------+-------+-------+-------+-------+ | Cepha | Disco | 500 | mg | Oral | Four | 40 | | Augus | Septe | | | lexin | ntinu | | | | Times | | | t | mber | | | | ed | | | | a | | | 3rd, | 15th, | | | Monoh | | | | | Day | | | 2005 | 2005 | | | ydrat | | | | | | | | 10:35 | | | | e | | | | | | | | am | 12:32 | | | (Kefl | | | | | | | | | pm | | | ex | | | | | | | | | | | | 500 | | | | | | | | | | | | mg | | | | | | | | | | | | Cap) | | | | | | | | | | | | 500 | | | | | | | | | | | | MG | | | | | | | | | | | | CAP | | | | | | | | | | | | | | | | | | | | | | | | | | | | | | | | | | | | | | | | | | | | | | | | | | | | | | | | | | | +-------+-------+-------+-------+-------+-------+-------+-------+-------+-------+-------+ | Cipro | Disco | 500 | mg | Oral | Twice | | 7 | Augus | Decem | | | floxa | ntinu | | | | Each | | | t | antelmo | | | maribell | ed | | | | Day | | | 26, | 6th, | | | (CIPR | | | | | for | | | 2019 | 2019 | | | OFLOX | | | | | infec | | | | 3:19a | | | ACIN | | | | | tion | | | 12:19 | m | | | HCL) | | | | | | | | pm | | | | 500 | | | | | | | [...] | | | | | | | +-------+-------+-------+-------+-------+-------+-------+-------+-------+-------+-------+ | Clind | Disco | 150 | mg | Oral | Q6H | 56 | | | March | | | amyci | ntinu | | | | | | | | | | | n HCl | ed | | | | | | | | 14, | | | | | | | | | | | | 2020 | | | (Arely | | | | | | | | | | | | maribell | | | | | | | | | 12:33 | | | 150 | | | | | | | | | pm | | | mg | | | | | | | | | | | | Cap) | | | | | | | | | | | | 150 | | | | | | | | | | | | MG | | | | | | | | | | | | CAP | | | | | | | | | | | | | | | | | | | | | | | | | | | | | | | | | | | | | | | | | | | | | | | | | | | | | | | | | | | +-------+-------+-------+-------+-------+-------+-------+-------+-------+-------+-------+ | Clind | Disco | 300 | mg | Oral | Every | 40 | | Gabby | Augus | | | amyci | ntinu | | | | 6 | | | , | t | | | n HCl | ed | | | | Hours | | | 2013 | , | | | | | | | | for | | | | 2013 | | | (Arely | | | | | infec | | | 5:12p | | | | maribell | | | | | tion | | | m | 3:57p | | | 150 | | | | | | | | | m | | | mg | | | | | | | | | | | | Cap) | | | | | | | | | | | | 300 | | | | | | | | | | | | MG | | | | | | | | | | | | CAP | | | | | | | | | | | | | | | | | | | | | | | | | | | | | | | | | | | | | | | | | | | | | | | | | | | | | | | | | | | +-------+-------+-------+-------+-------+-------+-------+-------+-------+-------+-------+ | Clotr | Disco | 0 | | Topic | Twice | 30 | | Decem | Octob | APPLY | | imazo | ntinu | | | al | Each | | | antelmo | er | TO | | le | ed | | | | Day | | | , | , | AFFEC | | (Lotr | | | | | | | | 2005 | 2006 | FREDA | | imin) | | | | | | | | | | AREA | | 1 % | | | | | | | | 2:12p | 4:58p | | | CR | | | | | | | | m | m | | | | | | | | | | | | | | | | | | | | | | | | | | | | | | | | | | | | | | +-------+-------+-------+-------+-------+-------+-------+-------+-------+-------+-------+ | Cyclo | Disco | 5 | mg | Oral | Twice | 5 | | Janua | Febru | | | benza | ntinu | | | | Each | | | ry | jean | | | rickey | ed | | | | Day | | | , | , | | | HCL | | | | | | | | 2016 | 2016 | | | (Flex | | | | | | | | | 9:34a | | | eril | | | | | | | | 6:41p | m | | | 10 mg | | | | | | | | m | | | | Tab) | | | | | | | | | | | | 5 MG | | | | | | | | | | | | | | | | | | | | | | | | TABLE | | | | | | | | | | | | T | | | | | | | | | | | | | | | | | | | | | | | | | | | | | | | | | | | | | | | | | | | | | | | +-------+-------+-------+-------+-------+-------+-------+-------+-------+-------+-------+ | DICYC | Disco | 2 | | Oral | Every | 40 | | Septe | Janua | | | LOMIN | ntinu | | | | 6 | | | mber | ry | | | E HCL | ed | | | | Hours | | | 22nd, | 14th, | | | | | | | | as | | | 2017 | 2018 | | | (BENT | | | | | neede | | | | | | | YL) | | | | | d for | | | 2:50p | 10:38 | | | 10 MG | | | | | pain | | | m | am | | | | | | | | | | | | | | | CAPSU | | | | | | | | | | | | LE | | | | | | | | | | | | | | | | | | | | | | | | | | | | | | | | | | | | | | | | | | | | | | | +-------+-------+-------+-------+-------+-------+-------+-------+-------+-------+-------+ | Dicyc | Disco | 10 | mg | Oral | Three | 30 | | Bozena | Novem | | | lomin | ntinu | | | | | | | 5th, | antelmo | | | e HCL | ed | | | | Times | | | 2018 | 16th, | | | | | | | | a | | | 7:11p | 2018 | | | (DICY | | | | | Day | | | m | | | | CLOMI | | | | | for | | | | 11:51 | | | NE | | | | | abdom | | | | am | | | HCL) | | | | | inal | | | | | | | 10 MG | | | | | cramp | | | | | | | | | | | | ing | | | | | | | CAPSU | | | | | | | | | | | | LE | | | | | | | | | | | | | | | | | | | | | | | | | | | | | | | | | | | | | | | | | | | | | | | +-------+-------+-------+-------+-------+-------+-------+-------+-------+-------+-------+ | Docus | Disco | 100 | mg | Oral | Three | 30 | | Novem | Septe | | | ate | ntinu | | | | | | | antelmo | mber | | | Sodiu | ed | | | | Times | | | 1st, | 19th, | | | m | | | | | a | | | 2015 | 2016 | | | (Cola | | | | | Day | | | 1:38p | | | | ce | | | | | for | | | m | 9:43a | | | 100 | | | | | Const | | | | m | | | mg | | | | | ipati | | | | | | | Cap) | | | | | on | | | | | | | 100 | | | | | | | | | | | | MG | | | | | | | | | | | | CAP | | | | | | | | | | | | | | | | | | | | | | | | | | | | | | | | | | | | | | | | | | | | | | | | | | | | | | | | | | | +-------+-------+-------+-------+-------+-------+-------+-------+-------+-------+-------+ | Doxyc | Disco | 100 | mg | Oral | Twice | 20 | | Septe | Septe | | | yclin | ntinu | | | | Each | | | mber | mber | | | e | ed | | | | Day | | | 15th, | 27th, | | | Monoh | | | | | | | | 2014 | 2014 | | | ydrat | | | | | | | | | | | | e | | | | | | | | 5:01p | 4:54p | | | (Comanche | | | | | | | | m | m | | | dox) | | | | | | | | | | | | 100 | | | | | | | | | | | | MG | | | | | | | | | | | | CAPSU | | | | | | | | | | | | LE | | | | | | | | | | | | | | | | | | | | | | | | | | | | | | | | | | | | | | | | | | | | | | | +-------+-------+-------+-------+-------+-------+-------+-------+-------+-------+-------+ | Esome | Disco | | | | | | | | Augus | | | prazo | ntinu | | | | | | | | t | | | le | ed | | | | | | | | 13th, | | | Mag | | | | | | | | | 2014 | | | Trihy | | | | | | | | | | | | drate | | | | | | | | | 3:57p | | | | | | | | | | | | m | | | (NEXI | | | | | | | | | | | | UM) | | | | | | | | | | | | 20 MG | | | | | | | | | | | | | | | | | | | | | | | | CAPSU | | | | | | | | | | | | LE.DR | | | | | | | | | | | | | | | | | | | | | | | | | | | | | | | | | | | | | | | | | | | | | | | | | | | | | | | | | | | +-------+-------+-------+-------+-------+-------+-------+-------+-------+-------+-------+ | HYDRO | Disco | 1 | | Oral | Q6H | | | | Georgina | | | CODON | ntinu | | | | as | | | | | | | E/DONI | ed | | | | neede | | | | 17th, | | | TAMIN | | | | | d for | | | | 2017 | | | OPHEN | | | | | PAIN | | | | | | | | | | | | | | | | 12:14 | | | 7.5-3 | | | | | | | | | pm | | | 00 MG | | | | | | | | | | | | | | | | | | | | | | | | (OLU | | | | | | | | | | | | DIN | | | | | | | | | | | | ES | | | | | | | | | | | | 7.5-3 | | | | | | | | | | | | 00 | | | | | | | | | | | | MG) 1 | | | | | | | | | | | | EACH | | | | | | | | | | | | | | | | | | | | | | | | TABLE | | | | | | | | | | | | T | | | | | | | | | | | | | | | | | | | | | | | | | | | | | | | | | | | | | | | | | | | | | | | +-------+-------+-------+-------+-------+-------+-------+-------+-------+-------+-------+ | HYDRO | Disco | 1 | | Oral | Every | 14 | | Janua | Bozena | | | codon | ntinu | | | | 4 | | | ry | 5th, | | | e/APA | ed | | | | Hours | | | 14, | 2017 | | | P | | | | | as | | | 2017 | 4:26p | | | (Norc | | | | | neede | | | | m | | | o | | | | | d for | | | 10:53 | | | | 5/325 | | | | | Pain | | | am | | | | | | | | | | | | | | | | Table | | | | | | | | | | | | t) 1 | | | | | | | | | | | | EACH | | | | | | | | | | | | TABLE | | | | | | | | | | | | T | | | | | | | | | | | | | | | | | | | | | | | | | | | | | | | | | | | | | | | | | | | | | | | +-------+-------+-------+-------+-------+-------+-------+-------+-------+-------+-------+ | HYDRO | Disco | 1-2 | | Oral | Every | 20 | | Septe | Septe | | | codon | ntinu | | | | 4 | | | mber | mber | | | e/APA | ed | | | | Hours | | | 15th, | 27th, | | | P | | | | | as | | | 2015 | 2015 | | | (Norc | | | | | Neede | | | | | | | o | | | | | d as | | | 5:01p | 4:54p | | | 5/325 | | | | | neede | | | m | m | | | | | | | | d for | | | | | | | Table | | | | | PAIN | | | | | | | t) | | | | | | | | | | | | 5/325 | | | | | | | | | | | | MG | | | | | | | | | | | | TABLE | | | | | | | | | | | | T | | | | | | | | | | | | | | | | | | | | | | | | | | | | | | | | | | | | | | | | | | | | | | | +-------+-------+-------+-------+-------+-------+-------+-------+-------+-------+-------+ | [place] | Disco | 1 | | Oral | | 6 | | | Bozena | | | codon | ntinu | | | | | | | | 5th, | | | e | ed | | | | | | | | 2018 | | | Bit/A | | | | | | | | | 4:26p | | | cetam | | | | | | | | | m | | | inoph | | | | | | | | | | | | en | | | | | | | | | | | | (Hydr | | | | | | | | | | | | ocodo | | | | | | | | | | | | ne-Ap | | | | | | | | | | | | ap | | | | | | | | | | | | 10-32 | | | | | | | | | | | | 5 | | | | | | | | | | | | Table | | | | | | | | | | | | t) 1 | | | | | | | | | | | | EACH | | | | | | | | | | | | TABLE | | | | | | | | | | | | T | | | | | | | | | | | | | | | | | | | | | | | | | | | | | | | | | | | | | | | | | | | | | | | +-------+-------+-------+-------+-------+-------+-------+-------+-------+-------+-------+ | [place] | Disco | | | | | | | | Augus | | | codon | ntinu | | | | | | | | t | | | e/Doni | ed | | | | | | | | 13th, | | | tamin | | | | | | | | | 2014 | | | ophen | | | | | | | | | | | | | | | | | | | | | 3:57p | | | (Norc | | | | | | | | | m | | | o | | | | | | | | | | | | 5MG-3 | | | | | | | | | | | | 25MG) | | | | | | | | | | | | 5 | | | | | | | | | | | | MG-32 | | | | | | | | | | | | 5 MG | | | | | [...] | | | | | | | +-------+-------+-------+-------+-------+-------+-------+-------+-------+-------+-------+ | [place] | Disco | 1 - 2 | | Oral | Every | 20 | | Septe | Decem | | | codon | ntinu | | | | 4-6 | | | mber | antelmo | | | e/Doni | ed | | | | Hours | | | 15, | , | | | tamin | | | | | PRN | | | 2004 | 2005 | | | ophen | | | | | Pain | | | | | | | | | | | | | | | 1:58p | 1:20p | | | (Olu | | | | | | | | m | m | | | din) | | | | | | | | | | | | 5 | | | | | | | | | | | | MG/50 | | | | | | | | | | | | 0 MG | | | | | | [...] | | | | | | | +-------+-------+-------+-------+-------+-------+-------+-------+-------+-------+-------+ | [place] | Disco | 1 | | Oral | Every | 15 | | Gabby | Septe | | | codon | ntinu | | | | 4-6 | | | 28, | mber | | | e/Doni | ed | | | | Hours | | | 2004 | 15, | | | tamin | | | | | PRN | | | | 2004 | | | ophen | | | | | Pain | | | 3:17p | | | | | | | | | | | | m | 12:32 | | | (Olu | | | | | | | | | pm | | | din) | | | | | | | | | | | | 5 | | | | | | | | | | | | MG/50 | | | | | | | | | | | | 0 MG | | | | | | [...] | | | | | | | +-------+-------+-------+-------+-------+-------+-------+-------+-------+-------+-------+ | [place] | Disco | 1 | | Oral | Every | 10 | | Janua | Gabby | | | codon | ntinu | | | | 4-6 | | | ry | 28th, | | | e/Doni | ed | | | | Hours | | | , | 2004 | | | tamin | | | | | PRN | | | 2003 | | | | ophen | | | | | Pain | | | 11:17 | 12:37 | | | | | | | | | | | am | pm | | | (Olu | | | | | | | | | | | | din) | | | | | | | | | | | | 5 | | | | | | | | | | | | MG/50 | | | | | | | | | | | | 0 MG | | | | | | [...] | | | | | | | +-------+-------+-------+-------+-------+-------+-------+-------+-------+-------+-------+ | [place] | Disco | 0.5 - | | Oral | Every | 20 | | Augus | Septe | | | codon | ntinu | 1 | | | 4-6 | | | t | mber | | | e/Doni | ed | | | | Hours | | | 3rd, | 15th, | | | tamin | | | | | PRN | | | 2004 | 2004 | | | ophen | | | | | Pain | | | 10:35 | | | | | | | | | | | | am | 12:32 | | | 10-32 | | | | | | | | | pm | | | 5 MG | | | | | | | | | | | | (Norc | | | | | | | | | | | | o | | | | | | | | | | | | 10-32 | | | | | | | | | | | | 5 MG) | | | | | | | | | | | | 10 | | | | | | | | | | | | MG-32 | | | | | | | | | | | | 5 MG | | | | | [...] | | | | | | | +-------+-------+-------+-------+-------+-------+-------+-------+-------+-------+-------+ | [place] | Disco | 1 | | Oral | Every | 5 | | Georgina | Septe | | | codon | ntinu | | | | 6 | | | | mber | | | e/Apa | ed | | | | Hours | | | 17th, | 10th, | | | p | | | | | | | | 2017 | 2017 | | | 5-325 | | | | | | | | | | | | MG | | | | | | | | 1:10p | 8:18a | | | (Norc | | | | | | | | m | m | | | o | | | | | | | | | | | | 5-325 | | | | | | | | | | | | MG) | | | | | | | | | | | | 1 | | | | | | | | | | | | EACH | | | | | | | | | | | | TABLE | | | | | | | | | | | | T | | | | | | | | | | | | | | | | | | | | | | | | | | | | | | | | | | | | | | | | | | | | | | | +-------+-------+-------+-------+-------+-------+-------+-------+-------+-------+-------+ | [place] | Disco | 1 | | Topic | 5 | 1 | | Novem | Septe | | | corti | ntinu | | | al | Times | | | antelmo | mber | | | sone/ | ed | | | | Each | | | 1st, | 19th, | | | Pramo | | | | | Day | | | 2015 | 2016 | | | xine | | | | | as | | | 1:38p | | | | (Proc | | | | | neede | | | m | 9:43a | | | tofoa | | | | | d for | | | | m | | | m-Hc) | | | | | | | | | | | | 1 | | | | | recta | | | | | | | %-1 % | | | | | l | | | | | | | FOAM | | | | | pain | | | | | | | | | | | | | | | | | | | | | | | | | | | | | | | | | | | | | | | | | | | | | | | | | | | | | | +-------+-------+-------+-------+-------+-------+-------+-------+-------+-------+-------+ | INHAL | Disco | 1 | | Not | Every | 1 | | Septe | Septe | | | ER, | ntinu | | | Appli | 6 | | | mber | mber | | | EDIE | ed | | | cable | Hours | | | 15, | 27, | | | T | | | | | | | | 2014 | 2014 | | | DEVIC | | | | | | | | | | | | ES | | | | | | | | 5:01p | 4:54p | | | (SPAC | | | | | | | | m | m | | | E | | | | | | | | | | | | CHAMB | | | | | | | | | | | | ER | | | | | | | | | | | | PLUS) | | | | | | | | | | | | 1 | | | | | | | | | | | | EACH | | | | | | | | | | | | SPACE | | | | | | | | | | | | R | | | | | | | | | | | | | | | | | | | | | | | | | | | | | | | | | | | | | | | | | | | | | | | +-------+-------+-------+-------+-------+-------+-------+-------+-------+-------+-------+ | Ibupr | Disco | 600 | mg | Oral | Three | | | | Georgina | | | ofen | ntinu | | | | | | | | | | | (Advi | ed | | | | Times | | | | 17, | | | l/Mot | | | | | a | | | | 2017 | | | rin | | | | | Day | | | | | | | 800 | | | | | | | | | 12:14 | | | mg | | | | | | | | | pm | | | Tab) | | | | | | | | | | | | 800 | | | | | | | [...] | | | | | | | +-------+-------+-------+-------+-------+-------+-------+-------+-------+-------+-------+ | Ibupr | Disco | 800 | mg | Oral | Three | 15 | | Janua | Febru | | | ofen | ntinu | | | | | | | ry | jean | | | (Advi | ed | | | | Times | | | , | , | | | l/Mot | | | | | a | | | 2017 | 2017 | | | rin | | | | | Day | | | | 9:34a | | | 800 | | | | | as | | | 6:41p | m | | | mg | | | | | neede | | | m | | | | Tab) | | | | | d for | | | | | | | 800 | | | | | Pain | | | | | | | [...] | | | | | | | +-------+-------+-------+-------+-------+-------+-------+-------+-------+-------+-------+ | Ketor | Disco | 10 | mg | Oral | Four | 20 | | May | Augus | | | olac | ntinu | | | | Times | | | 13, | t | | | Trome | ed | | | | a | | | 2018 | , | | | thami | | | | | Day | | | | 2019 | | | ne | | | | | | | | 3:51p | | | | (Katie | | | | | | | | m | 10:14 | | | dol) | | | | | | | | | am | | | 10 MG | | | | | [...] | | | | | | | +-------+-------+-------+-------+-------+-------+-------+-------+-------+-------+-------+ | Lisin | Disco | 20 | mg | Oral | Daily | | | | Septe | | | opril | ntinu | | | | | | | | mber | | | | ed | | | | | | | | 10th, | | | (Zest | | | | | | | | | 2017 | | | ril | | | | | | | | | | | | 20 mg | | | | | | | | | 8:18a | | | Tab) | | | | | | | | | m | | | 20 | | | | | | [...] | | | | | | | +-------+-------+-------+-------+-------+-------+-------+-------+-------+-------+-------+ | Prince | Disco | 2 | mg | Oral | AFTER | 20 | | Georgina | May | MAX | | amide | ntinu | | | | EACH | | | | 13, | IMUM | | HCL | ed | | | | | | | 29, | 2019 | 8 | | (Carlito | | | | | LOOSE | | | 2019 | | CAPS | | ramid | | | | | B | | | | 2:41p | PER | | e) 2 | | | | | for | | | 2:43p | m | 24 | | MG | | | | | DIARR | | | m | | HR | | CAPSU | | | | | HEA | | | | | | | LE | | | | | | | | | | | | | | | | | | | | | | | | | | | | | | | | | | | | | | | | | | | | | | | +-------+-------+-------+-------+-------+-------+-------+-------+-------+-------+-------+ | Prince | Disco | 2 | mg | Oral | AFTER | 20 | | Septe | Septe | MAX | | amide | ntinu | | | | EACH | | | mber | mber | IMUM | | HCL | ed | | | | | | | 10th, | 22nd, | 8 | | (Carlito | | | | | LOOSE | | | 2017 | 2017 | CAPS | | ramid | | | | | B | | | | | PER | | e) 2 | | | | | for | | | 10:02 | 11:43 | 24 | | MG | | | | | DIARR | | | am | am | HR | | CAPSU | | | | | HEA | | | | | | | LE | | | | | | | | | | | | | | | | | | | | | | | | | | | | | | | | | | | | | | | | | | | | | | | +-------+-------+-------+-------+-------+-------+-------+-------+-------+-------+-------+ | Medic | Disco | 0 | | | As | 1 | | Octob | Gabby | ICD-9 | | al | ntinu | | | | Direc | | | er | 19th, | | | Equip | ed | | | | freda | | | , | 2013 | 719.4 | | ment | | | | | | | | 2006 | | 7Use | | (Crut | | | | | | | | | 5:20p | for | | ches- | | | | | | | | 6:04p | m | ____ | | | | | | | | | | m | | Days | | Sprai | | | | | | | | | | | | n | | | | | | | | | | | | Ankle | | | | | | | | | | | | /Foot | | | | | | | | | | | | ) | | | | | | | | | | | | DEVIC | | | | | | | | | | | | E | | | | | | | | | | | | | | | | | | | | | | | | | | | | | | | | | | | | | | | | | | | | | | | +-------+-------+-------+-------+-------+-------+-------+-------+-------+-------+-------+ | Metro | Disco | 500 | mg | Oral | TID X | 21 | | Augus | Decem | | | NIDAZ | ntinu | | | | 7 | | | t | antelmo | | | OLE | ed | | | | DAYS | | | 26th, | 6th, | | | (Flag | | | | | for | | | 2019 | 2019 | | | yl) | | | | | infec | | | | 3:19a | | | 500 | | | | | tion | | | 12:19 | m | | | MG | | | | | | | | pm | | | | TABLE | | | | | | | | | | | | T | | | | | | | | | | | | | | | | | | | | | | | | | | | | | | | | | | | | | | | | | | | | | | | +-------+-------+-------+-------+-------+-------+-------+-------+-------+-------+-------+ | Napro | Disco | 500 | mg | Oral | Twice | 20 | | Augus | Septe | | | xen | ntinu | | | | Each | | | t | mber | | | (Napr | ed | | | | Day | | | 13th, | 15th, | | | osyn | | | | | for | | | 2014 | 2015 | | | 500 | | | | | PAIN | | | | | | | mg | | | | | | | | 4:50p | 3:58p | | | Tab) | | | | | | | | m | m | | | 500 | | | | | | | [...] | | | | | | | +-------+-------+-------+-------+-------+-------+-------+-------+-------+-------+-------+ | Napro | Disco | 220 | mg | Oral | Daily | | | | Febru | | | xen | ntinu | | | | | | | | jean | | | Sodiu | ed | | | | | | | | 7th, | | | m | | | | | | | | | 2017 | | | (Alev | | | | | | | | | 9:34a | | | e) | | | | | | | | | m | | | 220 | | | | | | | [...] | | | | | | | +-------+-------+-------+-------+-------+-------+-------+-------+-------+-------+-------+ | No | Disco | | | | | | | | March | | | Histo | ntinu | | | | | | | | | | | rical | ed | | | | | | | | 12th, | | | | | | | | | | | | 2020 | | | Medic | | | | | | | | | | | | ation | | | | | | | | | 2:35a | | | s . | | [...] | | | | | | | +-------+-------+-------+-------+-------+-------+-------+-------+-------+-------+-------+ | No | Disco | | | | | | | | Septe | | | Histo | ntinu | | | | | | | | mber | | | rical | ed | | | | | | | | 14th, | | | | | | | | | | | | 2017 | | | Medic | | | | | | | | | | | | ation | | | | | | | | | 1:43p | | | s . | | [...] | | | | | | | +-------+-------+-------+-------+-------+-------+-------+-------+-------+-------+-------+ | No | Disco | | | | | | | | Septe | | | Histo | ntinu | | | | | | | | mber | | | rical | ed | | | | | | | | 30th, | | | | | | | | | | | | 2016 | | | Medic | | | | | | | | | | | | ation | | | | | | | | | 8:04a | | | s . | | [...] | | | | | | | +-------+-------+-------+-------+-------+-------+-------+-------+-------+-------+-------+ | No | Disco | | | | | | | | Decem | | | Histo | ntinu | | | | | | | | antelmo | | | rical | ed | | | | | | | | 12th, | | | | | | | | | | | | 2006 | | | Medic | | | | | | | | | | | | ation | | | | | | | | | 1:20p | | | s . | | [...] | | | | | | | +-------+-------+-------+-------+-------+-------+-------+-------+-------+-------+-------+ | OXYCO | Disco | 10 | mg | Oral | Four | | | | Febru | | | DONE | ntinu | | | | Times | | | | jean | | | HCL | ed | | | | a | | | | 7th, | | | 10 MG | | | | | Day | | | | 2017 | | | | | | | | as | | | | 9:50a | | | TABLE | | | | | neede | | | | m | | | T | | | | | d for | | | | | | | | | | | | PAIN | | | | | | | | | | | | | | | | | | | | | | | | | | | | | | | | | | | | | | | | | | | | | | | | | | | | | | +-------+-------+-------+-------+-------+-------+-------+-------+-------+-------+-------+ | Omepr | Disco | 20 | mg | Oral | Daily | 30 | | Decem | March | | | azole | ntinu | | | | for | | | antelmo | | | | | ed | | | | GASTR | | | 6th, | 12th, | | | (PriL | | | | | ITIS | | | 2019 | 2020 | | | OSEC | | | | | | | | 6:38a | | | | 20 mg | | | | | | | | m | 2:35a | | | | | | | | | | | | m | | | CapCR | | | [...] | | | | | | | +-------+-------+-------+-------+-------+-------+-------+-------+-------+-------+-------+ | Ondan | Disco | 4 | mg | Oral | Every | 20 | | Bozena | Novem | | | setro | ntinu | | | | 6 | | | 5th, | antelmo | | | n | ed | | | | Hours | | | 2018 | 16th, | | | (Zofr | | | | | for | | | 7:11p | 2018 | | | an | | | | | Nause | | | m | | | | Odt) | | | | | a | | | | 11:51 | | | 4 MG | | | | | | | | | am | | | TAB.R | | | | | | | | | | | | APDIS | | | | | | | | | | | | | | | | | | | | | | | | | | | | | | | | | | | | | | | | | | | | | | | | | | | | | | | | | | | +-------+-------+-------+-------+-------+-------+-------+-------+-------+-------+-------+ | Ondan | Disco | 1 | | Subli | Every | 20 | | Septe | Janua | | | setro | ntinu | | | ngual | 4 | | | mber | ry | | | n | ed | | | | Hours | | | 14th, | 14th, | | | (Zofr | | | | | as | | | 2017 | 2018 | | | an | | | | | neede | | | | | | | Odt) | | | | | d for | | | 3:57p | 10:38 | | | 4 MG | | | | | | | | m | am | | | TAB.R | | | | | Nause | | | | | | | APDIS | | | | | a | | | | | | | | | | | | | | | | | | | | | | | | | | | | | | | | | | | | | | | | | | | | | | | | | | | | | | +-------+-------+-------+-------+-------+-------+-------+-------+-------+-------+-------+ | Ondan | Disco | 1 | | Subli | Every | 10 | | Septe | Septe | | | setro | ntinu | | | ngual | 8 | | | mber | mber | | | n | ed | | | | Hours | | | 10th, | 22nd, | | | (Zofr | | | | | as | | | 2017 | 2017 | | | an | | | | | neede | | | | | | | Odt) | | | | | d for | | | 10:02 | 11:43 | | | 8 MG | | | | | | | | am | am | | | TAB.R | | | | | Nause | | | | | | | APDIS | | | | | a | | | | | | | | | | | | | | | | | | | | | | | | | | | | | | | | | | | | | | | | | | | | | | | | | | | | | | +-------+-------+-------+-------+-------+-------+-------+-------+-------+-------+-------+ | OxyCO | Disco | 1 | | Oral | Every | 10 | | Septe | Janua | | | DONE | ntinu | | | | 6 | | | mber | ry | | | 5 | ed | | | | Hours | | | 30, | , | | | mg/Ac | | | | | as | | | 2015 | 2016 | | | etami | | | | | neede | | | | | | | n 325 | | | | | d for | | | 11:20 | 4:07p | | | mg | | | | | Pain | | | am | m | | | (Perc | | | | | | | | | | | | ocet | | | | | | | | | | | | 5/325 | | | | | | | | | | | | ) 1 | | | | | | | | | | | | EACH | | | | | | | | | | | | TABLE | | | | | | | | | | | | T | | | | | | | | | | | | | | | | | | | | | | | | | | | | | | | | | | | | | | | | | | | | | | | +-------+-------+-------+-------+-------+-------+-------+-------+-------+-------+-------+ | OxyCO | Disco | 1 | | Oral | Every | 15 | | Augus | Decem | 1 - 2 | | DONE | ntinu | | | | 6 | | | t | antelmo | TABS | | 5 | ed | | | | Hours | | | 26th, | 6th, | | | mg/Ac | | | | | as | | | 2019 | 2019 | | | etami | | | | | neede | | | | 3:19a | | | n 325 | | | | | d for | | | 12:21 | m | | | mg | | | | | Pain | | | pm | | | | (Perc | | | | | | | | | | | | ocet | | | | | | | | | | | | 5/325 | | | | | | | | | | | | ) 1 | | | | | | [...] | | | | | | | +-------+-------+-------+-------+-------+-------+-------+-------+-------+-------+-------+ | Oxyco | Disco | 1 - 2 | | Oral | Every | 20 | | Octob | Gabby | | | done/ | ntinu | | | | 4-6 | | | er | 19th, | | | Aceta | ed | | | | Hours | | | , | 2013 | | | minop | | | | | PRN | | | 2007 | | | | hen | | | | | Pain | | | | 5:20p | | | (Perc | | | | | | | | 6:04p | m | | | ocet) | | | | | | | | m | | | | 5 | | | | | | | | | | | | MG-32 | | | | | | | | | | | | 5 MG | | | | | [...] | | | | | | | +-------+-------+-------+-------+-------+-------+-------+-------+-------+-------+-------+ | Oxyme | Disco | 1 | | | Q12H | 15 | | Janua | Bozena | | | tazol | ntinu | | | | as | | | ry | 5th, | | | ine | ed | | | | neede | | | 14, | 2018 | | | HCL | | | | | d for | | | 2018 | 4:26p | | | (Nasa | | | | | | | | | m | | | l | | | | | Irrit | | | 10:53 | | | | Decon | | | | | ation | | | am | | | | gesta | | | | | | | | | | | | nt) | | | | | | | | | | | | 15 ML | | | | | | | | | | | | SOLN | [...] | | | | | | | +-------+-------+-------+-------+-------+-------+-------+-------+-------+-------+-------+ | PROCH | Disco | 10 | mg | Oral | Every | 20 | | May | Augus | | | LORPE | ntinu | | | | 6 | | | 13th, | t | | | RAZIN | ed | | | | Hours | | | 2019 | 26th, | | | E | | | | | | | | | 2019 | | | ARELIS | | | | | | | | 3:51p | | | | TE | | | | | | | | m | 10:14 | | | (COMP | | | | | | | | | am | | | AZINE | | | | | | | | | | | | ) 10 | | | | | | | | | | | | MG | | | | | | | | | | | | TABLE | | | | | | | | | | | | T | | | | | | | | | | | | | | | | | | | | | | | | | | | | | | | | | | | | | | | | | | | | | | | +-------+-------+-------+-------+-------+-------+-------+-------+-------+-------+-------+ | PROCH | Disco | 10 | mg | Oral | Every | 15 | | Georgina | May | | | LORPE | ntinu | | | | 6 | | | | 13th, | | | RAZIN | ed | | | | Hours | | | 29, | 2019 | | | E | | | | | as | | | 2019 | | | | ARELIS | | | | | neede | | | | 2:41p | | | TE | | | | | d for | | | 2:43p | m | | | (COMP | | | | | | | | m | | | | AZINE | | | | | Nause | | | | | | | ) 10 | | | | | a and | | | | | | | MG | | | | | | | | | | | | TABLE | | | | | vomit | | | | | | | T | | | | | ing | | | | | | | | | | | | | | | | | | | | | | | | | | | | | | | | | | | | | | | | | | | | | | | | | | | | | | +-------+-------+-------+-------+-------+-------+-------+-------+-------+-------+-------+ | Penic | Disco | 500 | mg | Oral | Twice | 20 | | Novem | May | | | illin | ntinu | | | | Each | | | antelmo | 13, | | | V | ed | | | | Day | | | 16, | 2019 | | | Potas | | | | | for | | | 2018 | | | | sium | | | | | INFEC | | | | 2:41p | | | (Veet | | | | | TION | | | 11:57 | m | | | ids | | | | | | | | am | | | | 500) | | | | | | | | | | | | 500 | | | | | | | | | | | | MG | | | | | | | | | | | | TABLE | | | | | | | | | | | | T | | | | | | | | | | | | | | | | | | | | | | | | | | | | | | | | | | | | | | | | | | | | | | | +-------+-------+-------+-------+-------+-------+-------+-------+-------+-------+-------+ | Phe/S | Disco | 1 | | Recta | 5 | 1 | | Novem | Septe | | | hark | ntinu | | | l | Times | | | antelmo | mber | | | Liver | ed | | | | Each | | | 1st, | 19th, | | | | | | | | Day | | | 2015 | 2016 | | | Oil/G | | | | | as | | | 1:38p | | | | lycer | | | | | neede | | | m | 9:43a | | | /Pet | | | | | d for | | | | m | | | (Prep | | | | | | | | | | | | victorina | | | | | recta | | | | | | | on H) | | | | | l | | | | | | | 0.25 | | | | | pain | | | | | | | %-1 | | | | | | | | | | | | % CR | | | | | | | | | | | | | | | | | | | | | | | | | | | | | | | | | | | | | | | | | | | | | | | | | | | | | | | | | | | +-------+-------+-------+-------+-------+-------+-------+-------+-------+-------+-------+ | Prome | Disco | 25-50 | mg | Oral | Four | 14 | | May | May | | | thazi | ntinu | | | | Times | | | 5th, | 13th, | | | ne | ed | | | | a | | | 2019 | 2019 | | | Hcl | | | | | Day | | | 2:12p | | | | (Phen | | | | | as | | | m | 2:41p | | | ergan | | | | | Neede | | | | m | | | ) 25 | | | | | d as | | | | | | | MG | | | | | neede | | | | | | | TAB | | | | | d for | | | | | | | | | | | | | | | | | | | | | | | | Nause | | | | | | | | | | | | a & | | | | | | | | | | | | Vomit | | | | | | | | | | | | ing | | | | | | | | | | | | | | | | | | | | | | | | | | | | | | | | | | | | | | | | | | | | | | | | | | | | | | +-------+-------+-------+-------+-------+-------+-------+-------+-------+-------+-------+ | Prome | Disco | 25 | mg | Oral | Q6H | 20 | | Septe | Janua | | | thazi | ntinu | | | | as | | | mber | ry | | | ne | ed | | | | neede | | | 22nd, | 14th, | | | Hcl | | | | | d for | | | 2017 | 2018 | | | (Phen | | | | | | | | | | | | ergan | | | | | Nause | | | 2:50p | 10:38 | | | ) 25 | | | | | a & | | | m | am | | | MG | | | | | Vomit | | | | | | | TAB | | | | | ing | | | | | | | | | | | | | | | | | | | | | | | | | | | | | | | | | | | | | | | | | | | | | | | | | | | | | | +-------+-------+-------+-------+-------+-------+-------+-------+-------+-------+-------+ | Rx | Disco | 1 | | Oral | Every | 6 | | Augus | Decem | | | Prepa | ntinu | | | | 4 | | | t | antelmo | | | ck | ed | | | | Hours | | | 5th, | 12th, | | | Oxyco | | | | | as | | | 2005 | 2006 | | | done/ | | | | | Neede | | | 7:15p | | | | Aceta | | | | | d | | | m | 1:20p | | | min | | | | | | | | | m | | | (Perc | | | | | | | | | | | | ocet | | | | | | | | | | | | Prepa | | | | | | | | | | | | ck) 5 | | | | | | | | | | | | | | | | | | | | | | | | MG/32 | | | | | | | | | | | | 5 MG | | | | | [...] | | | | | | | +-------+-------+-------+-------+-------+-------+-------+-------+-------+-------+-------+ | TraMA | Disco | 50 | mg | Oral | Every | 10 | | Novem | May | | | Dol | ntinu | | | | 6 | | | antelmo | 13th, | | | HCL | ed | | | | Hours | | | 16, | 2019 | | | (Ultr | | | | | as | | | 2018 | | | | am 50 | | | | | neede | | | | 2:41p | | | mg | | | | | d for | | | 11:57 | m | | | Tab) | | | | | Pain | | | am | | | | 50 MG | | | | | | | | | | | | | | | | | | | | | | | | TABLE | | | | | | | | | | | | T | | | | | | | | | | | | | | | | | | | | | | | | | | | | | | | | | | | | | | | | | | | | | | | +-------+-------+-------+-------+-------+-------+-------+-------+-------+-------+-------+ | Varen | Disco | 1 | mg | Oral | Twice | | | | Georgina | | | iclin | ntinu | | | | Each | | | | | | | e | ed | | | | Day | | | | , | | | Tartr | | | | | | | | | 2017 | | | ate | | | | | | | | | | | | (Ames | | | | | | | | | 12:14 | | | tix) | | | | | | | | | pm | | | 1 MG | | | | | | | | | | | | Tab | | | | | | | | | | | | | | | | | | | | | | | | | | | | | | | | | | | | | | | | | | | | | | | | | | | | | | | | | | | +-------+-------+-------+-------+-------+-------+-------+-------+-------+-------+-------+ | Verap | Disco | | | | | | | | Octob | | | serafin | ntinu | | | | | | | | er | | | Hcl | ed | | | | | | | | , | | | (Charmaine | | | | | | | | | 2006 | | | tello | | | | | | | | | | | | Pm) | | | | | | | | | 4:58p | | | 100 | | | | | | | | | m | | | MG | | | [...] | | | | | | | +-------+-------+-------+-------+-------+-------+-------+-------+-------+-------+-------+ | predn | Disco | 40 | mg | Oral | Daily | 8 | | Septe | Septe | X 4 | | iSONE | ntinu | | | | for | | | mber | mber | DAYS | | 20 | ed | | | | INFLA | | | 27th, | 19th, | | | MG | | | | | MMATI | | | 2015 | 2016 | | | TAB | | | | | ON | | | | | | | | | | | | | | | 5:46p | 9:43a | | | | | | | | | | | m | m | | | | | | | | | | | | | | | | | | | | | | | | | | | | | | | | | | | | | | +-------+-------+-------+-------+-------+-------+-------+-------+-------+-------+-------+ | predn | Disco | 40 | mg | Oral | DAILY | 8 | | Septe | Septe | | | iSONE | ntinu | | | | X 4 | | | mber | mber | | | 20 | ed | | | | DAYS | | | 18th, | 27th, | | | MG | | | | | for | | | 2014 | 2015 | | | TAB | | | | | INFLA | | | | | | | | | | | | MMATI | | | 8:42a | 4:54p | | | | | | | | ON | | | m | m | | | | | | | | | | | | | | | | | | | | | | | | | | | | | | | | | | | | | | +-------+-------+-------+-------+-------+-------+-------+-------+-------+-------+-------+ Problems Active Problems + + + + | Medical Problem | Onset Date | Status | | | | | + + + + | Bronchitis | | Active | | | | | + + + + | Tobacco use disorder | | Active | | | | | + + + + | Cough | | Active | + + + + | SOB (shortness of breath) | | Active | | | | | + + + + | Rectal fissure | | Active | | | | | + + + + | Fall | | Active | + + + + | Contusion, hip | | Active | | | | | + + + + | Pancreatitis | | Active | | | | | + + + + | Hip pain | | Active | + + + + | 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 | | | | | | | + + + + | Arthritis | | Active | + + + + | Knee pain | | Active | + + + + | Viral gastroenteritis | | Active | | | | | + + + + | Abdominal pain | | Active | | | | | + + + + | Epistaxis | | Active | + + + + | Right nasal polyps | | Active | | | | | + + + + | Nausea & vomiting | | Active | | | | | + + + + | Diarrhea | | Active | + + + + | Dental infection | | Active | | | | | + + + + | Acute chest pain | | Active | | | | | + + + + | Gastroenteritis | | Active | | | | | + + + + | Hypokalemia | | Active | | | | | + + + + | Colitis | | Active | + + + + | Chest pain | | Active | | | | | + + + + | Biliary colic | | Active | | | | | + + + + | Paronychia | | Active | | | | | + + + + | Paronychia due to ingrown | | Active | | nail | | | + + + + Procedures No procedure information available. Relevant Diagnostic Tests and/or Laboratory Data No known relevant diagnostic tests and/or laboratory data. Health Concerns No known health concerns documented Chief Complaint and Reason for Visit + + + | Reason for Visit | FOLLOW UP FINGER INF | + + + Encounters + + + + + + | Encounter | Location(s) | Arrival/Admit | Discharge/Depar | Provider(s) | | | | Date | t Date | | | | | | | | + + + + + + | Departed | [facility] | July 12, | July 12, | [facility] | | Emergency | [facility] | 2019 11:18am | 2019 1:30pm | Jamal | | | | | | | | | | | | | + + + + + + | Departed | [facility] | July 10, | July 10, | [facility] | | Emergency | [facility] | 2019 1:48am | 2019 4:47am | Kavita Mahmood DO | | | | | | | | | | | | | + + + + + + + + + | Recent Diagnosis | Onset Date | + + + | Paronychia due to ingrown nail | | | | | + + + | Paronychia | | + + + Assessments + + + + + | Diagnosis | Onset Date | Resolution | Status | | | | | | + + + + + | Paronychia due to | | | Active | | ingrown nail | | | | | | | | | + + + + + | Paronychia | | | Active | | | | | | + + + + + Functional Status No Functional Status information available Goals No Goals Information Available Immunizations + + + + + + + + | Immunizati | Event Date | Not Given | Dose | Manufactur | Lot Number | Vaccine | | on | | Reason | Number | er | | Informatio | | | | | | | | n | | | | | | | | Statement | | | | | | | | (VIS) | | | | | | | | Detail | | | | | | | | | | | | | | | | | + + + + + + + + | Td | November | | | Akorn | [id number] | | | (Adult), | 2013 | | | | | | | Adsorbed | 4:35pm | | | | | | | | | | | | | | | | | | | | | | + + + + + + + + Mental Status No Mental Status Information Available Medical Equipment No Medical Equipment Information available Insurance Providers + + + | Guarantor | BOBBY STODDARD | + + + | Address | [address] | | | [place] [address] | + + + | Contact Info. | Home Phone: | | | | + + + + + + + + + + + | Payer | Policy Id | Coverage | Subscriber | Subscriber | Effective | Expiration | | | | Id | 's Name | Id | Date | Date | | | | | | | | | | | | | | | | | + + + + + + + + | MISC | [id number] | | BOBBY STODDARD | | | | | [place] | | | [place] | | | | | MEDICAID | | | | | | | | PLANS | | | | | | | | | | | | | | | | | | | | | | | + + + + + + + + Plan of Treatment Future Tests Future scheduled [...] + + + + | | | DOCTOR, NO PCP | | | + + + + + + Future Procedures Future procedure information is unavailable Future Medications Future medication information is unavailable Patient Instructions + + | Paronychia | + + Social History Smoking Status + + + | Status | Date of Observation | + + + | Current some day smoker | July 13, 2019 11:41am | + + + Observation Status + + + + | Observation | Response | Date of Response | | | | | + + + + | MENTAL HEALTH PROBLEMS/ | No | June 14, 2016 11:17pm | | | | | + + + + + + + | Assigned Sex | Male | + + + Vital Signs + + + + | Vital Reading | Result | Collection Date/Time | | | | | + + + + | BP Systolic | 146 mm[Hg] | July 13, 2019 11:38am | | | | | + + + + | BP Diastolic | 96 mm[Hg] | July 13, 2019 11:38am | | | | | + + + + | Body Temperature | 97.8 [degF] | July 13, 2019 11:38am | | | | | + + + + | Respiratory rate | 18 /min | July 13, 2019 11:38am | | | | | + + + + | Heart Rate | 93 /min | July 13, 2019 11:38am | | | | | + + + + | Oxygen saturation by Pulse | 96 % | July 13, 2019 11:38am | | oximetry | | | + + + + | Height | 73 [in_i] | July 13, 2019 11:38am | | | | | + + + + | Weight | 260.00 [lb_av] | July 13, 2019 11:38am | | | | | + + + + | Weight | 117.93 kg | July 13, 2019 11:38am | | | | | + + + + | BMI (Body Mass Index) | 34.3 kg/m2 | July 13, 2019 11:38am | | | | | + + + + | BP Systolic | 138 mm[Hg] | July 11, 2019 2:32am | | | | | + + + + | BP Diastolic | 97 mm[Hg] | July 11, 2019 2:32am | | | | | + + + + | Body Temperature | 97.8 [degF] | July 11, 2019 2:32am | | | | | + + + + | Respiratory rate | 18 /min | July 11, 2019 2:32am | | | | | + + + + | Heart Rate | 97 /min | July 11, 2019 2:32am | | | | | + + + + | Oxygen saturation by Pulse | 96 % | July 11, 2019 2:32am | | oximetry | | | + + + + | Height | 73 [in_i] | July 11, 2019 2:32am | | | | | + + + + | Weight | 260.00 [lb_av] | July 11, 2019 2:32am | | | | | + + + + | Weight | 117.93 kg | July 11, 2019 2:32am | | | | | + + + + | BMI (Body Mass Index) | 34.3 kg/m2 | July 11, 2019 2:32am | | | | | + + + +"
--- OUTSIDE RECORDS SUMMARY | ~2019-09-25 | XMS | Clinical Summary ---
Demographics + + + | Address | [address] | | | [facility], [place] [address] | + + + | Home Phone | | + + + | Preferred Language | Unknown | + + + | Marital Status | S | + + + | Caodaism Affiliation | Unknown | + + + | Race | White | + + + | Ethnic Group | Not or | + + + Author + + + | Author | [facility] | + + + | Organization | [facility] | + + + | Address | [address] | | | [place] [address] | + + + | Phone | Unavailable | + + + Care Team Providers + + + + | Care Parking Enforcement Specialist Name | Role | Phone | [...] tion | | +---------+---------+---------+---------+---------+---------+---------+---------+---------+ | SPRAIN | [id number] | | Active | | Darrel | | Sprain | | | OF | | | | | [place] | | of foot | | | [...] | | | +---------+---------+---------+---------+---------+---------+---------+---------+---------+ | PERONEA | [id number] | | Active | | Darrel | | [place] | | | L | [id number] | | | | [place] | | l | | | TENDINI [...] limb | | +---------+---------+---------+---------+---------+---------+---------+---------+---------+ | ABDOMIN | [id number] | | Active | | Gigi | | Stomach | | | AL | 9 | | | | Holling | | cramps | | | CRAMPS | (SNOMED | | | | sead | | | | | | CT) | | | | TYPECASTING MACHINE OPERATOR | | | | +---------+---------+---------+---------+---------+---------+---------+---------+---------+ | PAIN IN | [id number] | | Active | | Prabhakar | | Pain in | | | RIGHT | [id number] | / | | | | | right | | | HIP | 2 | | | | [place] | | hip | | | | (SNOMED | | | | oy MD | | joint | | | | CT) | | | | | | | | +---------+---------+---------+---------+---------+---------+---------+---------+---------+ | RECTAL | [id number] | | Active | | Marisel | | Rectal | | | BLEEDIN | 2 | /11 | | /11 | Rubio | | hemorrh | | | G | (SNOMED | | | | TYPECASTING MACHINE OPERATOR | | age | | | | CT) | | | | | | | | +---------+---------+---------+---------+---------+---------+---------+---------+---------+ | ANAL | [id number] | | Active | | Marielle | | Anal | jae Perez | | FISSURE | 6 | | | /30 | Kobe | | fissure | Alexander | | | (SNOMED | | | | [facility] | | | [place] | | | CT) | | | | | | | MD | +---------+---------+---------+---------+---------+---------+---------+---------+---------+ | LESION | [id number] | | Active | | David | | Nasal | | | OF | 06 | / | | / | [place]icker | | septum | | | NASAL | (SNOMED | | | | ing [place] | | finding | | | SEPTUM | CT) | | | | | | | | +---------+---------+---------+---------+---------+---------+---------+---------+---------+ | HIP | [id number] | | Active | | Prabhakar | | Hip | | | PAIN, | 2 | /26 | | /26 | | | pain | | | LEFT | (SNOMED | | | | [place] | | | | | | CT) | | | | oy MD | | | | +---------+---------+---------+---------+---------+---------+---------+---------+---------+ | CONTROL | 0110789 | | Active | | Marisel | | Drug | | | LED | 03 | / | | / | Rubio | | therapy | | | SUBSTAN | (SNOMED | | | | TYPECASTING MACHINE OPERATOR | | | | | CE | CT) | | | | | | finding | | | AGREEME | | | | | | | | | | NT | | | | | | | | | | SIGNED | | | | | | | | | +---------+---------+---------+---------+---------+---------+---------+---------+---------+ | NASAL | [id number] | | Active | | Marisel | | Mass of | | | MASS | 09 | /19 | | /19 | Rubio | | nose | | | | (SNOMED | | | | TYPECASTING MACHINE OPERATOR | | | | | | CT) | | | | | | | | +---------+---------+---------+---------+---------+---------+---------+---------+---------+ | COSTOCH | 6144057 | | Active | | Marisel | | Costal | | | ONDRITI | 4 | | | | Rubio | | chondri | | | S, LEFT | (SNOMED | | | | TYPECASTING MACHINE OPERATOR | | tis | | | | CT) | | | | | | | | +---------+---------+---------+---------+---------+---------+---------+---------+---------+ | URI | 6990767 | | Active | | Marisel | | Upper | | | | 9 | | | | Rubio | | respira | | | | (SNOMED | | | | TYPECASTING MACHINE OPERATOR | | tory | | | | CT) | | | | | | infecti | | | | | | | | | | on | | +---------+---------+---------+---------+---------+---------+---------+---------+---------+ | RIB | 8664740 | | Active | | Marisel | | Rib | | | PAIN ON | 02 | | | | Rubio | | pain | | | LEFT | (SNOMED | | | | TYPECASTING MACHINE OPERATOR | | | | | SIDE | CT) | | | | | | | | +---------+---------+---------+---------+---------+---------+---------+---------+---------+ | POST- | [id number] | | Active | | Marisel | | Postvir | | | RAL | 04 | | | | Rubio | | al | | | COUGH | (SNOMED | | | | TYPECASTING MACHINE OPERATOR | | cough | | | SYNDROM | CT) | | | | | | | | | E | | | | | | | | | +---------+---------+---------+---------+---------+---------+---------+---------+---------+ | EPISTAX | [id number] | | Active | | David | | Epistax | | | IS, | 1 | | | | Chicker | | is | | | RECURRE | (SNOMED | | | | ing [place] | | | | | NT | CT) | | | | | | | | +---------+---------+---------+---------+---------+---------+---------+---------+---------+ | NASAL | 0133757 | | Active | | David | | Nasal | | | POLYP | 5 | / | | | Chicker | | polyp | | | | (SNOMED | | | | ing [place] | | | | | | CT) | | | | | | | | +---------+---------+---------+---------+---------+---------+---------+---------+---------+ | BRONCHI | 8073554 | | Active | | David | | Bronchi | | | TIS | 4 | /19 | | / | Chicker | | tis | | | | (SNOMED | | | | ing [place] | | | | | | CT) | | | | | | | | +---------+---------+---------+---------+---------+---------+---------+---------+---------+ | ACUTE | 6897941 | | Active | | David | | Common | | | NASOPHA | 6 | / | | | Chicker | | cold | | | RYNGITI | (SNOMED | | | | ing [place] | | | | | S | CT) | | | | | | | | +---------+---------+---------+---------+---------+---------+---------+---------+---------+ | ADJUSTM | [id number] | | Active | | Mariah | [...] mood | | +---------+---------+---------+---------+---------+---------+---------+---------+---------+ | CHRONIC | 2158818 | | Active | | Faina | | Chronic | | | PAIN | 06 | / | | / | [place] | | pain | | | SYNDROM | (SNOMED | | | | FLATWARE MAKER | | syndrom | | | E | CT) | | | | | | e | | +---------+---------+---------+---------+---------+---------+---------+---------+---------+ | PAIN | 8908893 | | Active | | Faina | | Psychal | | | DISORDE | | / | | / | [place] | | urban | | | R | (SNOMED | | | | FLATWARE MAKER | | | | | ASSOCIA | [...] | | | +---------+---------+---------+---------+---------+---------+---------+---------+---------+ | ANEMIA | [id number] | | Active | | Florecita | | Anemia | | | | 00 | / | | | Suhr | | | | | | (SNOMED | | | | TYPECASTING MACHINE OPERATOR-C | | | | | | CT) | | | | | | | | +---------+---------+---------+---------+---------+---------+---------+---------+---------+ | APHTHOU | 0535215 | | Active | | Charlen | | Aphthou | | | S ULCER | 05 | | | / | e Pimentel | | s ulcer | | | OF | (SNOMED | | | | CCMA | | of | | | MOUTH | CT) | | | | | | mouth | | +---------+---------+---------+---------+---------+---------+---------+---------+---------+ | DIFFICU | 9494993 | | Active | | Bobby | | Walking | | | LTY IN | 08 | / | | /20 | Hersche | | | | | WALKING | (SNOMED | | | | r DO | | disabil | | | | CT) | | | | | | ity | | +---------+---------+---------+---------+---------+---------+---------+---------+---------+ | TOTAL | 1607514 | | Active | | Florecita | | Total | | | HIP | 7 | /17 | | /17 | Suhr | | replace | | | ARTHROP | (SNOMED | | | | TYPECASTING MACHINE OPERATOR-C | | ment of | | | [...] , | -CM) | | | | TYPECASTING MACHINE OPERATOR-C | | osteoar | | | LOCALIZ [...] | | | +---------+---------+---------+---------+---------+---------+---------+---------+---------+ | FOOT | [id number] | | Resolve | | Florecita | | Foot | | | PAIN, | 7 | /15 | d | /15 | Suhr | | pain | | | RIGHT | (SNOMED | | | | TYPECASTING MACHINE OPERATOR-C | | | | | | CT) | | | | | | | | +---------+---------+---------+---------+---------+---------+---------+---------+---------+ | RECTAL | 4327685 | | Resolve | | Florecita | | Rectal | per | | BLEEDIN | | | d | | Suhr | | hemorrh | Sacred | | G | (SNOMED | | | | TYPECASTING MACHINE OPERATOR-C | | age | Heart | | | CT) | | | | | | | [facility] | | | | | | | | | | nd ER | | | | | | | | | | visit | | | | | | | | | | 05/11/14 | +---------+---------+---------+---------+---------+---------+---------+---------+---------+ | ANAL | [id number] | | Resolve | | Florecita | | Anal | per Dr. | | FISSURE | | | d | | Suhr | | fissure | Alexander | | | (SNOMED | | | | TYPECASTING MACHINE OPERATOR-C | | | [place] | | | CT) | | | | | | | MD | +---------+---------+---------+---------+---------+---------+---------+---------+---------+ | NEW | [id number] | | Resolve | | Florecita | | Procedu | | | PATIENT | 03 | / | d | / | Suhr | | re | | | | (SNOMED | | | | TYPECASTING MACHINE OPERATOR-C | | carried | | | CONSULT | CT) | | | | | | out on | | | ATION | | | | | | | | | | | | | | | | | subject | | +---------+---------+---------+---------+---------+---------+---------+---------+---------+ | AVASCUL | 8573734 | | Active | | Prabhakar | [...] femur | | +---------+---------+---------+---------+---------+---------+---------+---------+---------+ | URI | 6432054 | | Inactiv | | Loraine | [...] on | | +---------+---------+---------+---------+---------+---------+---------+---------+---------+ | HYPERTE | 8366277 | | Active | | Rudy | | Hyperte | | | NSION | 3 | /24 | | / | Monteir | | nsive | | | | (SNOMED | | | | o MD | | disorde | | | | CT) | | | | | | r | | +---------+---------+---------+---------+---------+---------+---------+---------+---------+ | ELEVATE | 5298529 | | Active | | Rudy | | Hypergl | | | D BLOOD | 7 | / | | | Monteir | | ycemia | | | SUGAR | (SNOMED | | | | o MD | | | | | | CT) | | | | | | | | +---------+---------+---------+---------+---------+---------+---------+---------+---------+ | NEW | 1111572 | | Removed | | Rudy | [...] subject | | +---------+---------+---------+---------+---------+---------+---------+---------+---------+ | SCREENI | 2260857 | | Resolve | | Rudy | [...] ng | | +---------+---------+---------+---------+---------+---------+---------+---------+---------+ | SCREENI | 4669842 | | Resolve | | Rudy | [...] ng | | +---------+---------+---------+---------+---------+---------+---------+---------+---------+ | NICOTIN | 4750358 | | Active | | Prabhakar | | Nicotin | | | E | 8 | /08 | | /08 | | | e | | | ADDICTI | (SNOMED | | | | [place] | | depende | | | ON | CT) | | | | oy MD | | nce | | +---------+---------+---------+---------+---------+---------+---------+---------+---------+ | ASEPTIC | 7323428 | | Inactiv | | Ann | [...] hip | | +---------+---------+---------+---------+---------+---------+---------+---------+---------+ | URI | 5358707 | | Inactiv | | Phan | | Upper | | | | 9 | /19 | e | /19 | Middlek | | respira | | | | (SNOMED | | | | auff | | tory | | | | CT) | | | | TYPECASTING MACHINE OPERATOR | | infecti | | | | | | | | | | on | | +---------+---------+---------+---------+---------+---------+---------+---------+---------+ | SORE | 7221140 | | Inactiv | | Phan | | Pain in | | | THROAT | 03 | /19 | e | /19 | Middlek | | throat | | | | (SNOMED | | | | auff | | | | | | CT) | | | | TYPECASTING MACHINE OPERATOR | | | | +---------+---------+---------+---------+---------+---------+---------+---------+---------+ | OTHER | [id number] | | Active | | Prabhakar | [...] | | | +---------+---------+---------+---------+---------+---------+---------+---------+---------+ | OPIOID | 2242399 | | Active | | Phan | | Nondepe | | | ABUSE, | | / | | / | Middlek | | ndent | | | CONTINU | (SNOMED | | | | auff | | opioid | | | OUS | CT) | | | | TYPECASTING MACHINE OPERATOR | | abuse, | | | | | | | | | | continu | | | | | | | | | | ous | | +---------+---------+---------+---------+---------+---------+---------+---------+---------+ | HIP | 1086963 | | Active | | Phan | | Hip | | | PAIN, | 2 | /28 | | /28 | Middlek | | pain | | | LEFT | (SNOMED | | | | auff | | | | | | CT) | | | | TYPECASTING MACHINE OPERATOR | | | | +---------+---------+---------+---------+---------+---------+---------+---------+---------+ | UPPER | 6191241 | | Inactiv | | Malachi Levin [...] on | | +---------+---------+---------+---------+---------+---------+---------+---------+---------+ | BRACHIA | 3484484 | | Inactiv | | Malachi Levin [...] | | | +---------+---------+---------+---------+---------+---------+---------+---------+---------+ | RIB | 6874150 | | Inactiv | | Malachi K | | Rib | | | PAIN | | e | | Dye | | pain | | | | (SNOMED | | | | ACNP | | | | | | CT) | | | | | | | | +---------+---------+---------+---------+---------+---------+---------+---------+---------+ | LESION | 0443632 | | Active | | Clementina | [...] | | | +---------+---------+---------+---------+---------+---------+---------+---------+---------+ | ANAL | 4441630 | | Removed | | Karissa | | Anal | per | | FISSURE | 6 | | | | Sea | | fissure | Alexander | | | (SNOMED | | | | RN | | | [place] | | | CT) | | | | | | | MD | +---------+---------+---------+---------+---------+---------+---------+---------+---------+ | RECTAL | 1240581 | | Removed | | Rodrigo | [...] | 05/11/14 | +---------+---------+---------+---------+---------+---------+---------+---------+---------+ | SCREENI | 6598039 | | Removed | | Juan | [...] ng | | +---------+---------+---------+---------+---------+---------+---------+---------+---------+ | SCREENI | 6530381 | | Removed | | Andriy | | Alcohol | | | NG FOR | | | | | Padovic | | | | | ALCOHOL | (SNOMED | | | | h TYPECASTING MACHINE OPERATOR | | consump | | | ISM | CT) | | | | | | tion | | | | | | | | | | screeni | | | | | | | | | | ng | | +---------+---------+---------+---------+---------+---------+---------+---------+---------+ | FOOT | 9424464 | | Removed | | Skye | | Foot | | | PAIN, | | /15 | | /15 | Epifanio | | pain | | | RIGHT | (SNOMED | | | | TYPECASTING MACHINE OPERATOR | | | | | | CT) [...] tab by | | | HYDROCODON | [id number] | Darrel | | 5-325 MG | mouth QHS | | | E-ACETAMIN | 1 | [place] DPM | | TABS | PRN pain | | | OPHEN | | | + + + + + + + + | PERCOCET | | | | OXYCODONE- | [id number] | Skye | | 5-325 MG | | | | ACETAMINOP | 0 | Bubba | | TABS | | | | HEN | | CCMA | + + + + + + + + | CLINDAMYCI | | | | CLINDAMYCI | 3484226689 | Skye | | N HCL 300 | | | | N HCL | 1 | Bubba | | MG CAPS | | | | | | CCMA | + + + + + + + + | ULTRAM 50 | 1 by mouth | | | TRAMADOL | 5922270829 | Gigi | | MG TABS | every 6 | | | HCL | 0 | [place] | | | hours as | | | | | d TYPECASTING MACHINE OPERATOR | | | needed | | | | | | + + + + + + + + | BENTYL 10 | 1 by mouth | | | DICYCLOMIN | | Gigi | | MG ORAL | 4 times a | | | E HCL | | [place] | | CAPSULE | day as | | | | | d TYPECASTING MACHINE OPERATOR | | | needed for | | | | | | | | abdomen | | | | | | | | cramping | | | | | | + + + + + + + + | FLEET | Insert 1 | | | BISACODYL | [id number] | Mairsel | | BISACODYL | enema into | | | | 6 | Rubio TYPECASTING MACHINE OPERATOR | | 10 MG/30ML | rectum | [...] | | | | | | | Installer 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 | + + + + + + + + | CARDIZEM | 1 by mouth | | | DILTIAZEM | [id number] | Marisel | | 60 MG TABS | twice | | | HCL | 7 | Rubio TYPECASTING MACHINE OPERATOR | | | daily for | | | | | | | | 8 weeks | | | | | | + + + + + + + + | FLEET | Insert 1 | | | BISACODYL | [id number] | Marisel | | BISACODYL | enema into | | | | 6 | Rubio TYPECASTING MACHINE OPERATOR | | 10 MG/30ML | rectum | | | | | | | ENEM | may repeat | | | | | | | | next day | | | | | | | | PRN | | | | | | + + + + + + + + | MIRALAX | Mix 17gm | | | POLYETHYLE | [id number] | Marisel | | POWD | of powder | | | NE GLYCOL | 2 | Rubio TYPECASTING MACHINE OPERATOR | | | with | | | 3350 | | | | | liquid per | | | | | | | | day | | | | | | + + + + + + + + | TRAMADOL | Take 1 tab | | | TRAMADOL | [id number] | Davi | | HCL 50 MG | q 6 hours | | | HCL | 1 | Edison GARCIA | | TABS | prn pain | | | | | | + + + + + + + + | COLACE 100 | Take 1 bid | | | DOCUSATE | [id number] | Davi | | MG CAPS | prn | | | SODIUM | 0 | Edison GARCIA | | | constipati | | | | | | | | on | | | | | | + + + + + + + + | [facility] MILK | 5 ml po | | | MAGNESIUM | [id number] | Davi | | OF | mid [...] po q | | | OXYCODONE- | 0485162712 | Davi | | ACETAMINOP | 6 hrs prn | | | ACETAMINOP | 5 | Edison DO | | HEN 5-325 | rectal | | | HEN | | | | MG TABS | pain | | | | | | + + + + + + + + | RECTIV 0.4 | 1 inch | | | NITROGLYCE | 8982745919 | Davi | | % OINT | [...] | 1 | | | HYDROCORTI | 9180323462 | Davi | | 25 25 MG [...] take 1tab | | | VARENICLIN | 4915796902 | Davi | | MG TABS | po daily | | | E TARTRATE | 6 | Hoyne DO | + + + + + + + + | CHANTIX | follow | | | VARENICLIN | 2076809128 | Davi | | STARTING | instructio [...] 1 inch | | | NITROGLYCE | 0582216967 | Darius | | % OINT | [...] 1 tab | | | TRAMADOL | [id number] | Marisel | | HCL 50 MG | q 6 hours | | | HCL | 1 | Rubio TYPECASTING MACHINE OPERATOR | | TABS | prn pain | | | | | | + + + + + + + + | COLACE 100 | Take 1 bid | | | DOCUSATE | [id number] | Marisel | | MG CAPS | prn | | | SODIUM | 0 | Rubio TYPECASTING MACHINE OPERATOR | | | constipati | | | | | | | | on | | | | | | + + + + + + + + | [facility] MIL[facility] | 5 ml po | | | MAGNESIUM | 5772072075 | Marisel | | OF | mid prn | | | HYDROXIDE | 6 | Rubio TYPECASTING MACHINE OPERATOR | | MAGNESIA | constipati | | | | | | | 400 MG/5ML | on | | | | | | | SUSP | | | | | | | + + + + + + + + | ANECREAM5 | thin film | | | LIDOCAINE | 9797979147 | Darius | | 5 % CREA | to rectum | | | (ANORECTAL | 5 | Niels | | | tid prn | | | ) | | PA-C | | | pain | | | | | | + + + + + + + + | OXYCODONE- | 1 tab po q | | | OXYCODONE- | 2357661606 | Darius | | ACETAMINOP | 6 hrs prn | | | ACETAMINOP | 5 | Niels | | HEN 5-325 | rectal | | | HEN | | PA-C | | MG TABS | pain | | | | | | + + + + + + + + | ANACAINE | thin film | | | BENZOCAINE | 6680197233 | Darius | | 10 % OINT [...] | 1 | | | HYDROCORTI | 3967545030 | Darius | | 25 25 MG [...] 1 by | | | OXYCODONE- | 2156310390 | Marisel | | 5-325 MG | mouth two | | | ACETAMINOP | 0 | Rubio TYPECASTING MACHINE OPERATOR | | TABS | times per | [...] 1 spray | | | FLUTICASON | 4067306810 | Marisel | | ALLERGY | eash | | | E | 2 | Rubio TYPECASTING MACHINE OPERATOR | | RELIEF 50 | nostril | [...] 1 by | | | OXYCODONE- | 3788427751 | Marisel | | 5-325 MG | mouth two | | | ACETAMINOP | 0 | Rubio TYPECASTING MACHINE OPERATOR | | TABS | times per | [...] 1 by | | | TRAMADOL | 5839378276 | Marisel | | HCL 50 MG | mouth | | | HCL | 1 | Rubio TYPECASTING MACHINE OPERATOR | | TABS | every 6 | | | | | | | | hours | | | | | | + + + + + + + + | PSEUDOEPHE | 1-2 | | | PSEUDOEPHE | 1270830068 | Marisel | | DRINE HCL | tablets | | | DRINE HCL | 2 | Rubio TYPECASTING MACHINE OPERATOR | | 30 MG TABS | every [...] 1 to | | | GUAIFENESI | 0978251191 | Marisel | | N 200 MG | 2 tablets | | | N | 0 | Rubio TYPECASTING MACHINE OPERATOR | | TABS | by mouth | [...] Take 1 | | | AMITRIPTYL | 5632246036 | Marisel | | MG ORAL | tab po QHS | | | INE HCL | 0 | Rubio TYPECASTING MACHINE OPERATOR | | TABLET | | | | | | | + + + + + + + + | PSEUDOEPHE | 1-2 | | | PSEUDOEPHE | 9636058715 | Marisel | | DRINE HCL | tablets | | | DRINE HCL | 2 | Rubio TYPECASTING MACHINE OPERATOR | | 30 MG TABS | every [...] 1 by | | | TRAMADOL | 4915979154 | Marisel | | HCL 50 MG | mouth | | | HCL | 1 | Rubio TYPECASTING MACHINE OPERATOR | | TABS | every 6 | | | | | | | | hours | | | | | | + + + + + + + + | CHANTIX | follow | | | VARENICLIN | 3427958417 | Marisel | | STARTING | instructio | | | E TARTRATE | 3 | Rubio TYPECASTING MACHINE OPERATOR | | MONTH LIZA | ns on [...] | 1-2 | | | PSEUDOEPHE | 4844310976 | Marisel | | DRINE HCL | tablets | | | DRINE HCL | 2 | Rubio TYPECASTING MACHINE OPERATOR | | 30 MG TABS | every [...] 1 to | | | GUAIFENESI | 0122074772 | Marisel | | N 200 MG | 2 tablets | | | N | 0 | Rubio TYPECASTING MACHINE OPERATOR | | TABS | by mouth | [...] 1 spray | | | FLUTICASON | 7513892083 | Marisel | | ALLERGY | eash | | | E | 2 | Rubio TYPECASTING MACHINE OPERATOR | | RELIEF 50 | nostril | | | PROPIONATE | | | | MCG/ACT | once a day | | | | | | | SUSP | | | | | | | + + + + + + + + | TRAMADOL | 1-2 TAB | | | TRAMADOL | 4380017317 | David | | HCL 50 MG | BID PRN | | | HCL | 1 | [place] | | TABS | PAIN | | | | | MA | + + + + + + + + | NORCO | 1tab by | | | HYDROCODON | 4058652416 | David | | 7.5-325 MG | [...] tab BID | | | CYCLOBENZA | [id number] | David | | YESSY HCL | PRN muscle | | | YESSY HCL | 1 | [place] | | 10 MG TABS | pain | | | | | MA | + + + + + + + + | [facility] LYSINE | take 1 tab | | | LYSINE | 9290635207 | David | | 1000 MG | [...] | prn | | | MAGNESIUM | 8555335645 | David | | OF | constipati [...] | 17grams | | | POLYETHYLE | 5436499746 | David | | POWD | mixed [...] Apply prn | | | BALSAM | 7867360029 | David | | 650-72.5 | to [...] | 1 | | | BISACODYL | 9569478505 | David | | 10 MG | [...] 1 tab | | | WARFARIN | 0169900671 | David | | MG TABS | daily | | | SODIUM | 0 | [place] | | | | | | | | MA | + + + + + + + + | COLACE 100 | 1 cap BID | | | DOCUSATE | [id number] | David | | MG CAPS | | | | SODIUM | 0 | [place] | | | | | | | | MA | + + + + + + + + | LISINOPRIL | 1 tab one | | | LISINOPRIL | 4634171115 | David | | 20 MG | time per | | | | 1 | [place] | | TABS | day | | | | | MA | + + + + + + + + | ELAVIL 25 | Take 1 | | | AMITRIPTYL | 7689192857 | Rudy | | MG ORAL | tab po QHS | | | INE HCL | 0 | Yaquelin | | TABLET | | | | | | MD | + + + + + + + + | TRAMADOL | 1-2 TAB | | | TRAMADOL | 3058711875 | Rudy | | HCL 50 MG | BID PRN | | | HCL | 1 | Yaquelin | | TABS | PAIN | | | | | MD | + + + + + + + + | TRAMADOL | 1 TAB BID | | | TRAMADOL | 3435369917 | Rudy | | HCL 50 MG | PRN PAIN | | | HCL | 1 | Yaquelin | | TABS | | | | | | MD | + + + + + + + + | NORCO | 1tab by | | | HYDROCODON | 6904859026 | Rudy | | 7.5-325 MG | [...] TAB Q6 | | | TRAMADOL | 1253610099 | Prabhakar | | HCL 50 MG | HRS PRN | | | HCL | 1 | [place] | | TABS | PAIN | | | | | MD | + + + + + + + + | NORCO | 1tab po | | | HYDROCODON | 1585330787 | Rudy | | 7.5-325 MG | two times | | | E-ACETAMIN | 1 | Yaqueiln | | TABS | per day as | | | OPHEN | | MD | | | needed, | | | | | | | | must last | | | | | | | | 1week | | | | | | + + + + + + + + | NORCO | 1 tab po | | | HYDROCODON | 1098217151 | Karma | | 5-325 MG | QD | | | E-ACETAMIN | 1 | Berenice | | TABS | | | | OPHEN | | NCMA | + + + + + + + + | TRAMADOL | take 1 tab | | | TRAMADOL | [id number] | Karma | | HCL 50 MG | nightly | | | HCL | 1 | Berenice | | TABS | | | | | | NCMA | + + + + + + + + | NORCO | 1 tab po | | | HYDROCODON | [id number] | Rudy | | 5-325 MG | QD | | | E-ACETAMIN | 1 | Yaquelin | | TABS | | | | OPHEN | | MD | + + + + + + + + | TRAMADOL | take 1 tab | | | TRAMADOL | [id number] | Rudy | | HCL 50 MG | nightly | | | HCL | 1 | Yaquelin | | TABS | | | | | | MD | + + + + + + + + | NORCO | 1 every 8 | | | HYDROCODON | [id number] | Rudy | | 5-325 MG | hours as | | | E-ACETAMIN | 1 | Yaquelin | | TABS | needed | | | OPHEN | | MD | + + + + + + + + | OXYCODONE | 1 tab q 4 | | | OXYCODONE | [id number] | Karma | | HCL 15 MG | hrs PRN | | | HCL | 1 | Berenice | | TABS | pain | | | | | NCMA | + + + + + + + + | NORCO | 1 every 8 | | | HYDROCODON | [id number] | Prabhakar | | 5-325 MG | hours as | | | E-ACETAMIN | 1 | Natividadoy | | TABS | needed | | | OPHEN | | MD | + + + + + + + + | CYCLOBENZA | 1 tab BID | | | CYCLOBENZA | [id number] | Florecita | | YESSY HCL | PRN muscle | | | YESSY HCL | 1 | Suhr [employer] | | 10 MG TABS | pain | | | | | | + + + + + + + + | PERCOCET | 1-2 tab q | | | OXYCODONE- | [id number] | Florecita | | 7.5-325 MG | 4 hrs for | | | ACETAMINOP | 0 | Suhr [employer] | | TABS | pain, hold | | | HEN | | | | | if | | | | | | | | somnolent | | | | | | | | or asleep. | | | | | | + + + + + + + + | OXYCODONE | 1 tab q 4 | | | OXYCODONE | [id number] | Florecita | | HCL 15 MG | hrs PRN | | | HCL | 1 | Suhr [employer] | | TABS | pain | | | | | | + + + + + + + + | [facility] LYSINE | take 1 tab | | | LYSINE | [id number] | Rudy | | 1000 MG | [...] take 1tab | | | VARENICLIN | [id number] | Rudy | | MG TABS | po daily | | | E TARTRATE | 6 | Yaquelin | | | | | | | | MD | + + + + + + + + | [facility] | prn | | | MAGNESIUM | [id number] | Melvina | | OF | constipati [...] | 17grams | | | POLYETHYLE | [id number] | Melvina | | POWD | mixed [...] Apply prn | | | BALSAM | [id number] | Bobby | | 650-72.5 | to lower | | | JOSEPH-GEOVANY | 3 | [place] | | MG/0.82ML | lip for | [...] tab q | | | OXYCODONE- | [id number] | Florecita | | 7.5-325 MG | 4 hrs for | | | ACETAMINOP | 0 | Suhr TYPECASTING MACHINE OPERATOR-C | | TABS | pain, hold | | | HEN | | | | | if | | | | | | | | somnolent | | | | | | | | or asleep. | | | | | | + + + + + + + + | TYLENOL 8 | 1 tablet | | | ACETAMINOP | [id number] | Bobby | | HOUR | every 4 | | | HEN | 1 | [place] | | ARTHRITIS | hours as | | | | | DO | | PAIN 650 | needed for | | | | | | | MG CR-TABS | | | | | | | | | pain/fever | | | | | | + + + + + + + + | PERCOCET | 1-2 tab q | | | OXYCODONE- | [id number] | Florecita | | 7.5-325 MG | 4 hrs PRN | | | ACETAMINOP | 0 | Suhr TYPECASTING MACHINE OPERATOR-C | | TABS | pain, | | | HEN | | | | | dispense | | | | | | | | #84 | | | | | | + + + + + + + + | BISAC-EVAC | 1 | | | BISACODYL | [id number] | Florecita | | 10 MG | suppositor | | | | 1 | Suhr TYPECASTING MACHINE OPERATOR-C | | RECTAL | y QHS PRN | | | | | | | SUPPOSITOR | constipati | | | | | | | Y | on | | | | | | + + + + + + + + | COUMADIN 4 | 1 tab | | | WARFARIN | [id number] | Florecita | | MG TABS | daily | | | SODIUM | 0 | Suhr TYPECASTING MACHINE OPERATOR-C | + + + + + + + + | COLACE 100 | 1 cap BID | | | DOCUSATE | [id number] | Florecita | | MG CAPS | | | | SODIUM | 0 | Suhr TYPECASTING MACHINE OPERATOR-C | + + + + + + + + | BI-MART | | | | BI-MART | | Florecita | | RSBG | | | | RSBG | | Suhr TYPECASTING MACHINE OPERATOR-C | + + + + + + + + | CHANTIX 1 | 1 tab two | | | VARENICLIN | [id number] | Karma | | MG TABS | times per | | | E TARTRATE | 6 | Berenice | | | day | | | | | NCMA | + + + + + + + + | TESSALON | Take three | | | BENZONATAT | [id number] | Karma | | PERLES 100 | [...] 1 tab | | | HYDROCODON | [id number] | Karma | | E-ACETAMIN | po [...] tab one | | | LISINOPRIL | 9794250139 | Rudy | | 20 MG | time per | | | | 1 | Yaquelin | | TABS | day | | | | | MD | + + + + + + + + | TESSALON | Take three | | | BENZONATAT | 5008843451 | Loraine | | PERLES 100 | [...] 1 tab | | | HYDROCODON | 5137449550 | Melvina | | E-ACETAMIN | po [...] 1tab po | | | VARENICLIN | 7638016075 | Rudy | | MG TABS | bid | | | E TARTRATE | 6 | Yaquelin | | | | | | | | MD | + + + + + + + + | HYDROCODON | Take 1 tab | | | HYDROCODON | 2839194298 | Rudy | | E-ACETAMIN | po [...] 2tabs po | | | VARENICLIN | 9987686587 | Rudy | | MG TABS | qd | | | E TARTRATE | 6 | Yaquelin | | | | | | | | MD | + + + + + + + + | LISINOPRIL | 1tab po qd | | | LISINOPRIL | 6866874603 | Rudy | | 20 MG | | | | | 1 | Yaquelin | | TABS | | | | | | MD | + + + + + + + + | TRAMADOL | 1 TAB Q6 | | | TRAMADOL | 4892028618 | Rudy | | HCL 50 MG [...] 3-4 per | | | OXYCODONE | 9196616178 | Rudy | | HCL 10 MG | day | | | HCL | 1 | Yaquelin | | TABS | | | | | | MD | + + + + + + + + | IBUPROFEN | three | | | IBUPROFEN | 7868892725 | Rudy | | 600 MG | times per | | | | 0 | Yaquelin | | TABS | day | | | | | MD | + + + + + + + + | TRAMADOL | 1 TAB Q6 | | | TRAMADOL | 7045123756 | Prabhakar | | HCL 50 MG [...] 3-4 per | | | OXYCODONE | 1532058088 | Karma | | HCL 10 MG | day | | | HCL | 1 | Berenice | | TABS | | | | | | NCMA | + + + + + + + + | GUAIFENESI | 1 tab | | | GUAIFENESI | 1666914568 | Karma | | N 400 MG | every 4 | | | N | 0 | [place] | | TABS | hours as | [...] 1 lozenge | | | BENZOCAINE | 3169648440 | Karma | | SORE | every [...] 4-6 per | | | HYDROCODON | 4441324879 | Karma | | 5-325 MG | [...] 1 tab | | | GUAIFENESI | 4416164885 | Phan | | N 400 MG | every 4 | | | N | 0 | [place] | | TABS | hours as | | | | | f TYPECASTING MACHINE OPERATOR | | | needed for | | | | | | | | | | | | | | | | cough/yaw | | | | | | | | estion | | | | | | + + + + + + + + | CEPACOL | 1 lozenge | | | BENZOCAINE | 1463370664 | Phan | | SORE | every 2 | | | -MENTHOL | 0 | [place] | | THROAT | hours as | | | | | f TYPECASTING MACHINE OPERATOR | | 10-2.1 MG | needed for | | | | | | | LOZG | sore | | | | | | | | throat | | | | | | + + + + + + + + | IBUPROFEN | three | | | IBUPROFEN | 7977212284 | Prabhakar | | 600 MG | times per | | | | 0 | VanMarinerotim | | TABS | day | | | | | MD | + + + + + + + + | NORCO | 4-6 per | | | HYDROCODON | 8445553615 | Prabhakar | | 5-325 MG | [...] 1 tab | | | OXYCODONE- | 8343276687 | Phan | | ACETAMINOP | by mouth | | | ACETAMINOP | 5 | [place] | | HEN 5-325 | three | | | HEN | | f TYPECASTING MACHINE OPERATOR | | MG TABS | times per [...] 1 tab | | | PSEUDOEPHE | 6107037845 | Phan | | DRINE HCL | by mouth | | | DRINE HCL | 2 | [place] | | 30 MG TABS | four times | | | | | f TYPECASTING MACHINE OPERATOR | | | per day | | [...] Inhale 2 | | | ALBUTEROL | 2116014094 | Phan | | 108 (90 | puffs | | | SULFATE | 2 | [place] | | Base) | every 4 | | | | | f TYPECASTING MACHINE OPERATOR | | MCG/ACT | hours as | [...] 1 tablet | | | MELOXICAM | 9530520625 | Phan | | MG TABS | by mouth | | | | 1 | [place] | | | daily. | | | | | f TYPECASTING MACHINE OPERATOR | | | Must last | | [...] Take 3 | | | PREDNISONE | 8992290268 | Malachi Levin | | 20 MG [...] 1 tab | | | PSEUDOEPHE | 1350376412 | Malachi Levin | | DRINE HCL [...] Inhale 2 | | | ALBUTEROL | 5857202945 | Malachi Levin | | 108 (90 [...] Take 1 | | | DOXYCYCLIN | 9931639730 | Malachi Levin | | E HYCLATE [...] tab by | | | CLINDAMYCI | 1449301739 | Malachi Levin | | N HCL [...] Take 1 | | | GABAPENTIN | 7382251916 | Malachi Levin | | 300 MG [...] 1 tab | | | CYCLOBENZA | 1788161527 | Malachi Levin | | YESSY HCL [...] 1 tab | | | OXYCODONE- | 4589195399 | Malachi Levin | | ACETAMINOP | [...] po bid | | | HYDROCODON | [id number] | Cyndi Crowley | | E-ACETAMIN | [...] | | | UDS | | Cyndi [place] | | | consistent | | | | | NCMA | + + + + + + + + | PAIN | signed | | | PAIN | | Cyndi [place] | | AGREEMENT | 1.2.15 | | | AGREEMENT | | NCMA | | D RATHER | | | | D RATHER | | | + + + + + + + + | HYDROCODON | 1 po bid | | | HYDROCODON | [id number] | Tommy | | E-ACETAMIN | prn [...] tab by | | | CLINDAMYCI | 6643201646 | Tommy | | N HCL 150 [...] 1 tablet | | | MELOXICAM | 3787133917 | Jovany | | MG TABS | [...] | | | | | | | TYPECASTING MACHINE OPERATOR | + + + + + + + + | IBUPROFEN | 4 By mouth | | | IBUPROFEN | [id number] | Andriy | | 200 MG | 3 times a | | | | 1 | Padovich | | TABS | day | | | | | TYPECASTING MACHINE OPERATOR | + + + + + + [...] | | | | | | | TYPECASTING MACHINE OPERATOR | + + + + + + [...] | | | | | | | TYPECASTING MACHINE OPERATOR | +---------+ + + + + + | CODEINE | Itch | | Critical | No Longer | Skye | | | | | | Active | Epifanio TYPECASTING MACHINE OPERATOR | +---------+ + + + + + | SULFA | Break out in | | Critical | | Skye | | | hives | | | | Epifanio TYPECASTING MACHINE OPERATOR | +---------+ + + + + + Results No information available. Plan of Care + + + + | Type | Date | Detail | + + + + | Referral | | GI Consult | | | | DO Jcarlos Cuba IV, | | | | [address] | | | | Suite [facility], [place], [place], | | | | [address] | | | | | + + + + +---+ + | | Referral excluded from report: | +---+ + + + + + | Referral | | GI Consult | | | | DO Jcarlos Cuba IV, | | | | [address] | | | | [address], [place], [place], | | | | [address] | | | | | + + + + | Referral | | Other Referral | | | | Hugo Matta, [address] | | | | [address], | | | | [place], [place], [address] | | | | | + + [...] | + + + + + | [id number] | Overweight | | | + + + + + | [id number] | Medical | | | | | Contraindication | | | + + + + + | [id number] | Overweight | | | + + + + + | [id number] | Overweight | | | + + + + + | [id number] | XR Hip W/Pelvis | | | | | 2-3V-Rt | | | + + + + + | [id number] | Overweight | | | + + + + + | [id number] | Overweight | | | + + [...]
--- OUTSIDE RECORDS SUMMARY | ~2019-09-25 | XMS | Continuity of Care Document ---
Demographics + + + | Address | [address] | | | [place] [address] | + + + | Home Phone | | + + + | Preferred Language | Unknown | + + + | Marital Status | Unknown | + + + | Alevism Affiliation | Unknown | + + + | Race | Unknown | + + + | Ethnic Group | Unknown | + + + Author + + + | Author | [facility] | + + + | Organization | [facility] | + + + | Address | [address] | | | [place] [address] | + + + | Phone | | + + + Support + + + + + | Name | Relationship | Address | Phone | + + + + + | NEHEMIAS Bergeron | Caregiver | [facility] | | | | | [place] [address] | | + + + + + | Bill Diallo | Caregiver | Emergency | | | [address] | | [place] | | | | | [place] [address] | | + + + + + | DEBBIE KUMAR | Next Of Kin | [place] [address] | | + + + + + Care Team Providers + + + + | Care Van Loader Name | Role | Phone | + + + + | NEHEMIAS Bergeron | Unavailable | | + + + + Insurance Providers + + + + + | Payer Name | Policy Number | Subscriber Name | Relationship | + + + + + | VERNON HILLS [employer] | [id number] | BOBBY STODDARD | SELF | + + + + + Chief Complaint and Reason for Visit + + + | Reason for Visit | ABD BRUSING NAUSEA DIARRHEA CRAMPS | + + + Problems Active Medical [...] + +--------+ | Epistaxis | Unknown | 01/14/18 | Active | + + + +--------+ [...] + +--------+ Medications Current Home Medications + +-------+-------+-------+ + + + + | Medicati | Dose | Units | Route | Directio | Days/Qty | Instruct | Start | | on | | | | ns | | ions | Date | + +-------+-------+-------+ + + + + | Loperami | [...] | | | | | | + +-------+-------+-------+ + + + + | PROCHLOR | [...] | | | | | | + +-------+-------+-------+ + + + + | Penicill | [...] | | | | | | + +-------+-------+-------+ + + + + | Prometha | 25-50 | MG | ORAL | Four | 14 | | 09/02/18 | | zine Hcl | | | | Times a | | | | | | | | | Day as | | | | | (Phenerg | | | | Needed | | | | | an) 25 | | | | as | | | | | MG TAB | | | | needed | | | | | | | | | for | | | | | | | | | Nausea & | | | | | | | | | | | | | | | | | | Vomiting | | | | + +-------+-------+-------+ + + + + | Tramadol | [...] | | | | | | + +-------+-------+-------+ + + + + Past Home Medications [...] needed for Pain | | | | ([place] 5-325 | | | | | Tablet) 1 Each | | | | | Tablet Tablet, 1 | | | | | Tab Oral | | | | + + + + + | Hydrocodone | Every 4 Hours as | 01/13/15 | Discontinued | | Bit/Acetaminophen | Needed as needed | | | | ([place] 5-325 | for PAIN | | | | Tablet) 5 Mg-325 Mg | | | | | Tablet Tablet, 1-2 | | | | | Tab Oral | | | | + + + + + | Hydrocodone/Acetami | | Unknown | Discontinued | | nophen ([place] | | | | | 5MG-325MG) 5 [...] Mg | Pain | | | | ([place] 10-325 Mg) | | | | | 10 Mg-325 Mg Tab | | | | | Tab, 0.5-1 Tab Oral | | | | + + + + + | Hydrocodone/Apap | Every 6 Hours | 08/15/16 | Discontinued | | 5-325 Mg ([place] | | | | | 5-325 Mg) [...] Irritation | | | | Soln, 1 Buhl Nasal | | | | + + [...] + + + | Discharge Date | 09/02/18 | + + + | Disposition | HOME | + + + | Condition at Discharge | Fair | + + + | Instructions/Education Provided | Abdominal Pain, Adult, Umua-gb-Nbnj | + + + | Prescriptions | See Medications Section | + + + | Referrals | Marisel Bergeron - | | | | | | JULIA [facility] - | + + + | Additional Instructions/Education | cALL YOUR pcp TOMORROW, GET SEEN THIS | | | WEEKDrink a variety of fluids, try to | | | avoid milk or dairy products | + + + Functional Status No functional status results. Allergies, Adverse Reactions, Alerts + +---------+ + +--------+ + | Allergen | Type | Severity | Reaction | Status | Last Updated | + +---------+ + +--------+ + | Sulfa | Allergy | Unknown | ANAPHYLAXIS, | Active | 09/02/18 | | (Sulfonamide | | | HIVES | | | | | | | | | | | Antibiotics) | | | | | | + +---------+ + +--------+ + | codeine | Allergy | Unknown | | Active | 09/02/18 | + +---------+ + +--------+ + Immunizations No Known History of Immunizations. Vital Signs + + + + | Vital Reading | Collection Date/Time | Result | + + + + | Blood Pressure | 09/02/18 1:20pm | 144/83 | + + + + | Blood Pressure Source | 06/17/16 4:24am | Right Arm | + + + + | Temperature | 09/02/18 1:20pm | 97.2 F | + + + + | Temperature Source | 09/02/18 11:26am | Temporal | + + + + | Respiratory Rate | 09/02/18 1:20pm | 18 | + + + + | Pulse Rate | 09/02/18 1:20pm | 76 | + + + + | Bedside Pulse Oximetry | 09/02/18 1:20pm | 97 | + + + + | Height | 09/02/18 11:26am | 6 ft 1 in | + + + + | Height | 09/02/18 11:26am | 185.42 cm | + + + + | Weight | 09/02/18 11:26am | 230 lb | + + + + | Weight | 09/02/18 11:26am | 104.33 kg | + + + + | Body Mass Index | 09/02/18 11:26am | 30.3 kg/m2 | + + + [...] + + + + | Urine | Voided | | | | 09/02/18 | 09/02/18 | | | Source | | | | | 12:31pm | 12:47pm | | + + + +-------+ + + + + | Urine | Yellow | | | P-Yellow | 09/02/18 | 09/02/18 | | | Color | | | | | 12:31pm | 12:47pm | | + + + +-------+ + + + + | Urine | Clear | | | Clear | 09/02/18 | 09/02/18 | | | Appearan | | | | | 12:31pm | 12:47pm | | | ce | | | | | | | | + + + +-------+ + + + + | Urine | 1.025 | | * | 1.003-1. | 09/02/18 | 09/02/18 | | | Specific | | | | 022 | 12:31pm | 12:47pm | | | [place] | | | | | | | | + + + +-------+ + + + + | Urine pH | 5.0 | | | 5.0-8.0 | 09/02/18 | 09/02/18 | | | | | | | | 12:31pm | 12:47pm | | + + + +-------+ + + + + | Urine | Neg | | | Neg | 05/05/19 | 05/05/19 | | | Leukocyt | | | | | 12:31pm | 12:47pm | | | e | | | | | | | | | Esterase | | | | | | | | + + + +-------+ + + + + | Urine | Neg | | | Neg | 05/05/19 | 19 | | | Nitrite | | | | | 12:31pm | 12:47pm | | + + + +-------+ + + + + | Urine | Neg | | | Neg | 05/05/19 | 09/02/19 | | | Protein | | | | | 12:31pm | 12:47pm | | + + + +-------+ + + + + | Urine | Neg | | | Neg | 05/05/19 | 05/05/19 | | | Glucose | | | | | 12:31pm | 12:47pm | | + + + +-------+ + + + + | Urine | Neg | | | Neg | 19 | 09/02/18 | | | Ketones | | | | | 12:31pm | 12:47pm | | + + + +-------+ + + + + | Urine | NORM | | | Normal | 09/02/18 | 09/02/18 | | | Urobilin | | | | | 12:31pm | 12:47pm | | | ogen | | | | | | | | + + + +-------+ + + + + | Urine | Neg | | | Neg | 09/02/18 | 09/02/18 | | | Bilirubi | | | | | 12:31pm | 12:47pm | | | n | | | | | | | | + + + +-------+ + + + + | Urine | Neg | | | Neg | 19 | 19 | | | Blood | | | | | 12:31pm | 12:47pm | | + + + +-------+ + + + + | Urine | No | | | No | 09/02/18 | 09/02/18 | | | Culture | | | | | 12:31pm | 12:47pm | | | Indicate | | | [...] | 09/02/18 | 09/02/18 | | | Astrovir | [...] | 09/02/18 | 09/02/18 | | | Rotaviru | Detected | | | DETECT | 12:31pm | 2:07pm | | | s A PCR | | | | | | | | + + + +-------+ + + + + | Stool | Not | | | NOT | 09/02/18 | 09/02/18 | | | Sapoviru | Detected | | | DETECT | 12:31pm | 2:07pm | | | s (PCR) | | | | | | | | + + + +-------+ + + + + | White | 7.52 | K/mm3 | | 4.00-11. | 09/02/18 | 09/02/18 | | | Blood | | | | 30 | 11:43am | 11:53am | | | Count | | | | | | | | + + + +-------+ + + + + | Red | 4.67 | M/mm3 | | 4.30-5.9 | 09/02/18 | 09/02/18 | | | Blood | | | | 0 | 11:43am | 11:53am | | | Count | | | | | | | | + + + +-------+ + + + + | Hemoglob | 14.1 | g/dL | | 13.5-17. | 09/02/18 | 09/02/18 | | | in | | | | 5 | 11:43am | 11:53am | | + + + +-------+ + + + + | Hematocr | 42.7 | % | | 37.0-53. | 09/02/18 | 09/02/18 | | | it | | | | 0 | 11:43am | 11:53am | | + + + +-------+ + + + + | Mean | 91 | fL | | 80-100 | 09/02/18 | 09/02/18 | | | Corpuscu | | | | | 11:43am | 11:53am | | | lar | | | | | | | | | Volume | | | | | | | | + + + +-------+ + + + + | Mean | 30.2 | pg | | 26.0-34. | 09/02/18 | 09/02/18 | | | Corpuscu | | | | 0 | 11:43am | 11:53am | | | lar | | | | | | | | | Hemoglob | | | | | | | | | in | | | | | | | | + + + +-------+ + + + + | Mean | 33.0 | g/dL | | 31.5-36. | 09/02/18 | 09/02/18 | | | Corpuscu | | | | 5 | 11:43am | 11:53am | | | lar | | | | | | | | | Hemoglob | | | | | | | | | in | | | | | | | | | Concent | | | | | | | | + + + +-------+ + + + + | RDW | 46.0 | fL | | 35.1-46. | 09/02/18 | 09/02/18 | | | Standard | | | | 3 | 11:43am | 11:53am | | | | | | | | | | | | Deviatio | | | | | | | | | n | | | | | | | | + + + +-------+ + + + + | RDW | 13.7 | % | | 11.7-14. | 09/02/18 | 09/02/18 | | | Coeffici | | | | 2 | 11:43am | 11:53am | | | ent of | | | | | | | | | Variatio | | | | | | | | | n | | | | | | | | + + + +-------+ + + + + | Platelet | 241 | K/mm3 | | 150-400 | 09/02/18 | 09/02/18 | | | Count | | | | | 11:43am | 11:53am | | + + + +-------+ + + + + | Mean | 9.7 | fL | | 9.1-12.4 | 09/02/18 | 09/02/18 | | | Platelet | | | | | 11:43am | 11:53am | | | Volume | | | | | | | | + + + +-------+ + + + + | Differen | Auto | | | | 09/02/18 | 09/02/18 | | | tial | | | | | 11:43am | 11:53am | | | Method | | | | | | | | + + + +-------+ + + + + | Neutroph | 69 | % | | 41-73 | 09/02/18 | 09/02/18 | | | ils (%) | | | | | 11:43am | 11:53am | | | (Auto) | | | | | | | | + + + +-------+ + + + + | Lymphocy | 20 | % | L | 21-46 | 09/02/18 | 09/02/18 | | | wicho (%) | | | | | 11:43am | 11:53am | | | (Auto) | | | | | | | | + + + +-------+ + + + + | Monocyte | 9 | % | | 4-13 | 09/02/18 | 09/02/18 | | | s (%) | | | | | 11:43am | 11:53am | | | (Auto) | | | | | | | | + + + +-------+ + + + + | Eosinoph | 1 | % | | 0-6 | 09/02/18 | 09/02/18 | | | ils (%) | | | | | 11:43am | 11:53am | | | (Auto) | | | | | | | | + + + +-------+ + + + + | Basophil | 1 | % | | 0-2 | 09/02/19 | 19 | | | s (%) | | | | | 11:43am | 11:53am | | | (Auto) | | | | | | | | + + + +-------+ + + + + | Immature | 0 | % | | 0-1 | 09/02/18 | 09/02/18 | | | | | | | | 11:43am | 11:53am | | | Granuloc | | | | | | | | | yte % | | | | | | | | | (Auto) | | | | | | | | + + + +-------+ + + + + | Nucleate | 0.0 | /100 WBC | | 0.0-0.2 | 09/02/18 | 09/02/18 | | | d Red | | | | | 11:43am | 11:53am | | | Blood | | | | | | | | | Cells % | | | | | | | | + + + +-------+ + + + + | Absolute | 5.21 | K/mm3 | | 1.96-9.1 | 09/02/18 | 09/02/18 | | | | | | | 5 | 11:43am | 11:53am | | | Neutroph | | | | | | | | | ils | | | | | | | | | (auto) | | | | | | | | + + + +-------+ + + + + | Absolute | 1.50 | K/mm3 | | 0.84-5.2 | 09/02/18 | 09/02/18 | | | | | | | 0 | 11:43am | 11:53am | | | Lymphocy | | | | | | | | | wicho | | | | | | | | | (auto) | | | | | | | | + + + +-------+ + + + + | Absolute | 0.68 | K/mm3 | | 0.16-1.4 | 09/02/18 | 09/02/18 | | | | | | | 7 | 11:43am | 11:53am | | | Monocyte | | | | | | | | | s (auto) | | | | | | | | + + + +-------+ + + + + | Absolute | 0.06 | K/mm3 | | 0.00-0.6 | 09/02/18 | 09/02/18 | | | | | | | 8 | 11:43am | 11:53am | | | Eosinoph | | | | | | | | | ils | | | | | | | | | (auto) | | | | | | | | + + + +-------+ + + + + | Absolute | 0.05 | K/mm3 | | 0.00-0.2 | 09/02/18 | 09/02/18 | | | | | | | 3 | 11:43am | 11:53am | | | Basophil | | | | | | | | | s (auto) | | | | | | | | + + + +-------+ + + + + | Absolute | 0.02 | K/mm3 | | 0.00-0.1 | 09/02/18 | 09/02/18 | | | | | | | 0 | 11:43am | 11:53am | | | Immature | | | [...] 0.00 | K/mm3 | | 0.00-0.0 | 09/02/18 | 09/02/18 | | | d RBC | | | | 2 | 11:43am | 11:53am | | | Absolute | | | [...] 137 | mmol/L | | 136-145 | 09/02/18 | 09/02/18 | | | Level | | | | | 11:43am | 12:21pm | | + + + +-------+ + + + + | Potassiu | 3.8 | mmol/L | | 3.5-5.5 | 09/02/18 | 09/02/18 | | | m Level | | | | | 11:43am | 12:21pm | | + + + +-------+ + + + + | Chloride | 106 | mmol/L | | 98-108 | 09/02/18 | 09/02/18 | | | Level | | | | | 11:43am | 12:21pm | | + + + +-------+ + + + + | Carbon | 27 | mmol/L | | 21-32 | 09/02/18 | 09/02/18 | | | Dioxide | | | | | 11:43am | 12:21pm | | | Level | | | | | | | | + + + +-------+ + + + + | Anion | 4 | mmol/L | L | 6-16 | 09/02/18 | 09/02/18 | | | Gap | | | | | 11:43am | 12:21pm | | + + + +-------+ + + + + | Glucose | 91 | mg/dL | | 70-99 | 09/02/18 | 09/02/18 | | | Level | | | | | 11:43am | 12:21pm | | + + + +-------+ + + + + | Blood | 13 | mg/dL | | 8-24 | 09/02/18 | 09/02/18 | | | Urea | | | | | 11:43am | 12:21pm | | | Nitrogen | | | | | | | | + + + +-------+ + + + + | Creatini | 0.71 | mg/dL | | 0.60-1.2 | 09/02/18 | 09/02/18 | | | ne | | | | 0 | 11:43am | 12:21pm | | + + + +-------+ + + + + | BUN/Crea | 18.3 | % | | 12.0-20. | 09/02/18 | 09/02/18 | | | tinine | | | | 0 | 11:43am | 12:21pm | | | Ratio | | | | | | | | + + + +-------+ + + + + | Glomerul | >60 | | | 60- | 09/02/18 | 09/02/18 | Non-Afri | | ar | | | | | 11:43am | 12:21pm | can | | Filtrati | | | | | | | [place] | | on Rate | | | | | | | GFR | | Calc | | | | | | | CalcFor | | | | | | | | | | | | | | | | | | [place] | | | | | | | [...] + + + + | Calcium | 9.0 | mg/dL | | 8.5-10.1 | 09/02/18 | 09/02/18 | | | Level | | | | | 11:43am | 12:21pm | | + + + +-------+ + + + + | Total | 7.5 | g/dL | | 6.4-8.2 | 09/02/18 | 09/02/18 | | | Protein | | | | | 11:43am | 12:21pm | | + + + +-------+ + + + + | Albumin | 3.7 | g/dL | | 3.4-5.0 | 09/02/18 | 09/02/18 | | | | | | | | 11:43am | 12:21pm | | + + + +-------+ + + + + | Globulin | 3.8 | g/dL | | 2.2-4.0 | 09/02/18 | 09/02/18 | | | | | | | | 11:43am | 12:21pm | | + + + +-------+ + + + + | Albumin/ | 1.0 | | | 0.8-1.8 | 09/02/18 | 09/02/18 | | | Globulin | | | | | 11:43am | 12:21pm | | | Ratio | | | | | | | | + + + +-------+ + + + + | Total | 0.5 | mg/dL | | 0.1-1.0 | 09/02/18 | 09/02/18 | | | Bilirubi | | | | | 11:43am | 12:21pm | | | n | | | | | | | | + + + +-------+ + + + + | Alkaline | 57 | U/L | | 50-136 | 09/02/18 | 09/02/18 | | | | | | | | 11:43am | 12:21pm | | | Phosphat | | | | | | | | | ase | | | | | | | | + + + +-------+ + + + + | Aspartat | 27 | U/L | | 12-37 | 09/02/18 | 09/02/18 | | | e Amino | | | | | 11:43am | 12:21pm | | | Transf | | | | | | | | | (AST/SGO | | | | | | | | | T) | | | | | | | | + + + +-------+ + + + + | Alanine | 38 | U/L | | 12-78 | 09/02/18 | 09/02/18 | | | Aminotra | | | | | 11:43am | 12:21pm | | | nsferase | | | | | | | | | | | | | | | | | | (ALT/SGP | | | | | | | | | T) | | | | | | | | + + + +-------+ + + + + | Lipase | 147 | U/L | | 73-393 | 09/02/18 | 09/02/18 | | | | | | | | 11:43am | 12:21pm | | + + + +-------+ + + + + | Urine | 0-2 | /hpf | | 0-5 | 08/27/18 | 08/27/18 | | | WBC | | | | | 11:11am | 12:07pm | | + + + +-------+ + + + + | Urine | 0-2 | /hpf | | 0-2 | 08/27/18 | 08/27/18 | | | RBC | | | | | 11:11am | 12:07pm | | + + + +-------+ + [...] | 11:11am | 12:07pm | | + + + +-------+ + + + + | Troponin | <0.015 | ng/mL | | 0.000-0. | 08/26/18 | 08/26/18 | | | | | | | 040 | 3:45pm | 4:22pm | | + + + +-------+ + + + + | B-Type [...] + + + + | Departed | [facility] | 09/02/18 | 09/02/18 2:51pm | Imani, | | Emergency | [facility] | 11:15am | | Bill Gómez MD | + + + + + + | Departed | [facility] | 08/27/18 8:39am | 08/27/18 3:04pm | Harsha Crabtree MD | | Emergency | [facility] | | | | + + + + + + | Departed | [facility] | 08/26/18 3:14pm | 08/26/18 4:40pm | Malachi Pimentel | | Emergency | [facility] | | | MD | + + + + + + + + + | Encounter Diagnosis | Onset Date | + + + | Abdominal pain | | + + +"
--- OUTSIDE RECORDS SUMMARY | ~2019-09-25 | XMS | Clinical Summary ---
Demographics + + + | Address | [address] | | | [place] [address] | + + + | Home Phone | ;ext=[phone] | + + + | Preferred Language | Unknown | + + + | Marital Status | U | + + + | Pentecostalism Affiliation | Unknown | + + + | Race | White | + + + | Ethnic Group | Not or | + + + Author + + + | Author | [facility] | + + + | Organization | [facility] | + + + | Address | [address] | | | [place] [address] | + + + | Phone | Unavailable | + + + Care Team Providers + +------+ + | Care Pool Servicer Name | Role | Phone | + [...] tion | | +---------+---------+---------+---------+---------+---------+---------+---------+---------+ | COSTOCH | [id number] | | Active | | Marisel | | Costal | | | ONDRITI | 4 | | | | Rubio | | chondri | | | S, LEFT | (SNOMED | | | | WINE CONSULTANT | | tis | | | | CT) | | | | | | | | +---------+---------+---------+---------+---------+---------+---------+---------+---------+ | URI | [id number] | | Active | | Marisel | | Upper | | | | 9 | | | | Rubio | | respira | | | | (SNOMED | | | | WINE CONSULTANT | | tory | | | | CT) | | | | | | infecti | | | | | | | | | | on | | +---------+---------+---------+---------+---------+---------+---------+---------+---------+ | RIB | [id number] | | Active | | Marisel | | Rib | | | PAIN ON | 02 | / | | / | Rubio | | pain | | | LEFT | (SNOMED | | | | WINE CONSULTANT | | | | | SIDE | CT) | | | | | | | | +---------+---------+---------+---------+---------+---------+---------+---------+---------+ | POST- | [id number] | | Active | | Marisel | | Postvir | | | RAL | 04 | / | | | Rubio | | al | | | COUGH | (SNOMED | | | | WINE CONSULTANT | | cough | | | SYNDROM | CT) | | | | | | | | | E | | | | | | | | | +---------+---------+---------+---------+---------+---------+---------+---------+---------+ | EPISTAX | [id number] | | Active | | David | | Epistax | | | IS, | 1 | /19 | | /19 | [place] | | is | | | RECURRE | (SNOMED | | | | ing [place] | | | | | NT | CT) | | | | | | | | +---------+---------+---------+---------+---------+---------+---------+---------+---------+ | NASAL | [id number] | | Active | | David | | Nasal | | | POLYP | 5 | /19 | | /19 | [place] | | polyp | | | | (SNOMED | | | | ing [place] | | | | | | CT) | | | | | | | | +---------+---------+---------+---------+---------+---------+---------+---------+---------+ | BRONCHI | [id number] | | Active | | David | | Bronchi | | | TIS | 4 | /19 | | /19 | [place] | | tis | | | | (SNOMED | | | | ing [place] | | | | | | CT) | | | | | | | | +---------+---------+---------+---------+---------+---------+---------+---------+---------+ | ACUTE | [id number] | | Active | | David | | Common | | | NASOPHA | 6 | /19 | | /19 | [place] | | cold | | | RYNGITI | (SNOMED | | | | ing [place] | | | | | S | CT) | | | | | | | | +---------+---------+---------+---------+---------+---------+---------+---------+---------+ | ADJUSTM | [id number] | | Active | | Mariah | [...] mood | | +---------+---------+---------+---------+---------+---------+---------+---------+---------+ | CHRONIC | [id number] | | Active | | Faina | | Chronic | | | PAIN | | | | | [place] | | pain | | | SYNDROM | (SNOMED | | | | ASSOCIATE PROFESSOR OF COMMUNICATION | | syndrom | | | E | CT) | | | | | | e | | +---------+---------+---------+---------+---------+---------+---------+---------+---------+ | PAIN | 9010699 | | Active | | Faina | | Psychal | | | DISORDE | | / | | / | [place] | | urban | | | R | (SNOMED | | | | ASSOCIATE PROFESSOR OF COMMUNICATION | | | | | ASSOCIA | [...] | | | +---------+---------+---------+---------+---------+---------+---------+---------+---------+ | ANEMIA | [id number] | | Active | | Florecita | | Anemia | | | | 00 | / | | | Suhr | | | | | | (SNOMED | | | | WINE CONSULTANT-C | | | | | | CT) | | | | | | | | +---------+---------+---------+---------+---------+---------+---------+---------+---------+ | APHTHOU | [id number] | | Active | | Charlen | | Aphthou | | | S ULCER | 05 | / | | | e Pimentel | | s ulcer | | | OF | (SNOMED | | | | CCMA | | of | | | MOUTH | CT) | | | | | | mouth | | +---------+---------+---------+---------+---------+---------+---------+---------+---------+ | DIFFICU | [id number] | | Active | | Bobby | | Walking | | | LTY IN | 08 | /20 | | /20 | Hersche | | | | | WALKING | (SNOMED | | | | r DO | | disabil | | | | CT) | | | | | | ity | | +---------+---------+---------+---------+---------+---------+---------+---------+---------+ | TOTAL | [id number] | | Active | | Florecita | | Total | | | HIP | 7 | / | | /17 | Suhr | | replace | | | ARTHROP | (SNOMED | | | | WINE CONSULTANT-C | | ment of | | | [...] , | -CM) | | | | WINE CONSULTANT-C | | osteoar | | | LOCALIZ [...] | | | +---------+---------+---------+---------+---------+---------+---------+---------+---------+ | FOOT | [id number] | | Resolve | | Florecita | | Foot | | | PAIN, | 7 | /15 | d | /15 | Suhr | | pain | | | RIGHT | (SNOMED | | | | WINE CONSULTANT-C | | | | | | CT) | | | | | | | | +---------+---------+---------+---------+---------+---------+---------+---------+---------+ | RECTAL | [id number] | | Resolve | | Florecita | | Rectal | per | | BLEEDIN | 2 | /15 | d | /15 | Suhr | | hemorrh | Sacred | | G | (SNOMED | | | | WINE CONSULTANT-C | | age | Heart | | | CT) | | | | | | | [facility] | | | | | | | | | | nd ER | | | | | | | | | | visit | | | | | | | | | | 05/11/14 | +---------+---------+---------+---------+---------+---------+---------+---------+---------+ | ANAL | [id number] | | Resolve | | Florecita | | Anal | per | | FISSURE | 6 | /30 | d | /30 | Suhr | | fissure | Alexander | | | (SNOMED | | | | WINE CONSULTANT-C | | | [place] | | | CT) | | | | | | | MD | +---------+---------+---------+---------+---------+---------+---------+---------+---------+ | NEW | [id number] | | Resolve | | Florecita | | Procedu | | | PATIENT | 03 | / | d | /24 | Suhr | | re | | | | (SNOMED | | | | WINE CONSULTANT-C | | carried | | | CONSULT | CT) | | | | | | out on | | | ATION | | | | | | | | | | | | | | | | | subject | | +---------+---------+---------+---------+---------+---------+---------+---------+---------+ | AVASCUL | [id number] | | Active | | Prabhakar | [...] femur | | +---------+---------+---------+---------+---------+---------+---------+---------+---------+ | URI | [id number] | | Inactiv | | Loraine | [...] on | | +---------+---------+---------+---------+---------+---------+---------+---------+---------+ | HYPERTE | [id number] | | Active | | Rudy | | Hyperte | | | NSION | 3 | /24 | | / | Monteir | | nsive | | | | (SNOMED | | | | o MD | | disorde | | | | CT) | | | | | | r | | +---------+---------+---------+---------+---------+---------+---------+---------+---------+ | ELEVATE | 6282625 | | Active | | Rudy | | Hypergl | | | D BLOOD | 7 | /24 | | /24 | Monteir | | ycemia | | | SUGAR | (SNOMED | | | | o MD | | | | | | CT) | | | | | | | | +---------+---------+---------+---------+---------+---------+---------+---------+---------+ | NEW | [id number] | | Removed | | Rudy | [...] subject | | +---------+---------+---------+---------+---------+---------+---------+---------+---------+ | SCREENI | [id number] | | Resolve | | Rudy | [...] ng | | +---------+---------+---------+---------+---------+---------+---------+---------+---------+ | SCREENI | [id number] | | Resolve | | Rudy | [...] ng | | +---------+---------+---------+---------+---------+---------+---------+---------+---------+ | NICOTIN | [id number] | | Active | | Prabhakar | | Nicotin | | | E | 8 | /08 | | /08 | | | e | | | ADDICTI | (SNOMED | | | | VanAnro | | depende | | | ON | CT) | | | | oy MD | | nce | | +---------+---------+---------+---------+---------+---------+---------+---------+---------+ | ASEPTIC | [id number] | | Inactiv | | Ann | [...] hip | | +---------+---------+---------+---------+---------+---------+---------+---------+---------+ | URI | 6703275 | | Inactiv | | Phan | | Upper | | | | 9 | /19 | e | /19 | Middlek | | respira | | | | (SNOMED | | | | auff | | tory | | | | CT) | | | | WINE CONSULTANT | | infecti | | | | | | | | | | on | | +---------+---------+---------+---------+---------+---------+---------+---------+---------+ | SORE | [id number] | | Inactiv | | Phan | | Pain in | | | THROAT | 03 | /19 | e | /19 | Middlek | | throat | | | | (SNOMED | | | | auff | | | | | | CT) | | | | WINE CONSULTANT | | | | +---------+---------+---------+---------+---------+---------+---------+---------+---------+ | OTHER | 5959327 | | Active | | Prabhakar | [...] | | | +---------+---------+---------+---------+---------+---------+---------+---------+---------+ | OPIOID | [id number] | | Active | | Phan | | Nondepe | | | ABUSE, | 05 | / | | / | Middlek | | ndent | | | CONTINU | (SNOMED | | | | auff | | opioid | | | OUS | CT) | | | | WINE CONSULTANT | | abuse, | | | | | | | | | | continu | | | | | | | | | | ous | | +---------+---------+---------+---------+---------+---------+---------+---------+---------+ | HIP | 4013222 | | Active | | Phan | | Hip | | | PAIN, | 2 | / | | | Middlek | | pain | | | LEFT | (SNOMED | | | | auff | | | | | | CT) | | | | WINE CONSULTANT | | | | +---------+---------+---------+---------+---------+---------+---------+---------+---------+ | UPPER | [id number] | | Inactiv | | Malachi K [...] on | | +---------+---------+---------+---------+---------+---------+---------+---------+---------+ | BRACHIA | [id number] | | Inactiv | | Malachi Levin [...] | | | +---------+---------+---------+---------+---------+---------+---------+---------+---------+ | RIB | 5342433 | | Inactiv | | Malachi Levin | | Rib | | | PAIN | | | e | | Dye | | pain | | | | (SNOMED | | | | ACNP | | | | | | CT) | | | | | | | | +---------+---------+---------+---------+---------+---------+---------+---------+---------+ | LESION | 7547601 | | Active | | Clementina | [...] | | | +---------+---------+---------+---------+---------+---------+---------+---------+---------+ | ANAL | 2843613 | | Removed | | Karissa | | Anal | per Dr. | | FISSURE | | | | | Sea | | fissure | Alexander | | | (SNOMED | | | | RN | | | [place] | | | CT) | | | | | | | MD | +---------+---------+---------+---------+---------+---------+---------+---------+---------+ | RECTAL | 3183304 | | Removed | | Rodrigo | [...] | 05/11/14 | +---------+---------+---------+---------+---------+---------+---------+---------+---------+ | SCREENI | 9712179 | | Removed | | Juan | [...] ng | | +---------+---------+---------+---------+---------+---------+---------+---------+---------+ | SCREENI | 3709055 | | Removed | | Andriy | | Alcohol | | | NG FOR | 01 | /19 | | /19 | Padovic | | | | | ALCOHOL | (SNOMED | | | | h WINE CONSULTANT | | consump | | | ISM | CT) | | | | | | tion | | | | | | | | | | screeni | | | | | | | | | | ng | | +---------+---------+---------+---------+---------+---------+---------+---------+---------+ | FOOT | [id number] | | Removed | | Skye | | Foot | | | PAIN, | 7 | /15 | | /15 | Epifanio | | pain | | | RIGHT | (SNOMED | | | | WINE CONSULTANT | | | | | | CT) [...] | 1 | | | BISACODYL | [id number] | Florecita | | 10 MG | suppositor | | | | 1 | Suhr WINE CONSULTANT-C | | SUPP | y QHS PRN [...] | | | | | | | WINE CONSULTANT | + + + + + + + + | MIRALAX | 17grams | | | POLYETHYLE | 4478678286 | Melvina | | POWD | mixed [...] Apply prn | | | BALSAM | [id number] | Bobby | | 650-72.5 | to lower | | | JOSEPH-GEOVANY | 3 | [place] | | MG/0.82ML | lip for | [...] 1 lozenge | | | BENZOCAINE | 2917496935 | Karma | | SORE | every 2 | | | -MENTHOL | 0 | [place] | | THROAT | hours as [...] cap BID | | | DOCUSATE | [id number] | Florecita | | MG CAPS | | | | SODIUM | 0 | Mariselahr WINE CONSULTANT-C | + + + + + + + + | [facility] L[facility] | take 1 tab | | | LYSINE | 1832961410 | David | | 1000 MG | [...] tab BID | | | CYCLOBENZA | [id number] | Florecita | | YESSY HCL | PRN muscle | | | YESSY HCL | 1 | Mariselahr WINE CONSULTANT-C | | 10 MG TABS | pain | | | | | | + + + + + + + + | NORCO | 1 every 8 | | | HYDROCODON | 3618266388 | Rudy | | 5-325 MG | hours as | | | E-ACETAMIN | 1 | Yaquelin | | TABS | needed | | | OPHEN | | MD | + + + + + + + + | NORCO | 1 tab po | | | HYDROCODON | 4044214320 | Karma | | 5-325 MG | QD | | | E-ACETAMIN | 1 | Berenice CONRAD | | TABS | | | | OPHEN | | | + + + + + + + + | OXYCODONE | 3-4 per | | | OXYCODONE | 8636433975 | Karma | | HCL 10 MG | day | | | HCL | 1 | Berenice CONRAD | | TABS | | | | | | | + + + + + + + + | OXYCODONE | 1 tab q 4 | | | OXYCODONE | 4468146156 | Karma | | HCL 15 MG | hrs PRN | | | HCL | 1 | Berenice CONRAD | | TABS | pain | | | | | | + + + + + + + + | HYDROCODON | Take 1 tab | | | HYDROCODON | 0082510235 | Melvina | | E-ACETAMIN | po [...] 1 tab | | | TRAMADOL | 0764150210 | Karma | | HCL 50 MG [...] 1 tab | | | OXYCODONE- | 0994019594 | Phan | | ACETAMINOP | by mouth | | | ACETAMINOP | 5 | Middlekauf | | HEN 5-325 | three | | | HEN | | f WINE CONSULTANT | | MG TABS | times per [...] Inhale 2 | | | ALBUTEROL | 3364030791 | Malachi Levin | | 108 (90 [...] 4-6 per | | | HYDROCODON | 4047108665 | Prabhakar | | 5-325 MG | day | | | E-ACETAMIN | 1 | VanMelanie | | TABS | | | | OPHEN | | MD | + + + + + + + + | COUMADIN 4 | 1 tab | | | WARFARIN | 4034010094 | David | | MG TABS | [...] Apply prn | | | BALSAM | 3790526393 | David | | 650-72.5 | to [...] | 17grams | | | POLYETHYLE | 4824992394 | David | | POWD | mixed [...] 1 tab | | | WARFARIN | 0629497414 | Florecita | | MG TABS | daily | | | SODIUM | 0 | Suhr WINE CONSULTANT-C | + + + + + + + + | OXYCODONE | 3-4 per | | | OXYCODONE | 2779590493 | Rudy | | HCL 10 MG | day | | | HCL | 1 | Yaquelin | | TABS | | | | | | MD | + + + + + + + + | TESSALON | Take three | | | BENZONATAT | 0964481353 | Karma | | RACHEL 100 | [...] | three | | | IBUPROFEN | 9778317019 | Prabhakar | | 600 MG | times per | | | | 0 | VanMarinerooy | | TABS | day | | | | | MD | + + + + + + + + | LISINOPRIL | 1 tab one | | | LISINOPRIL | 0191555286 | David | | 20 MG | time per | | | | 1 | [place] | | TABS | day | | | | | [place] | + + + + + + + + | [facility] MILK | prn | | | MAGNESIUM | 5559517314 | David | | OF | constipati [...] cap BID | | | DOCUSATE | [id number] | David | | MG CAPS | | | | SODIUM | 0 | [place] | | | | | | | | [place] | + + + + + + + + | TYLENOL 8 | 1 tablet | | | ACETAMINOP | 3380239572 | Bobby | | HOUR | every 4 | | | HEN | 1 | [place] | | ARTHRITIS | hours as | [...] TAB Q6 | | | TRAMADOL | 4879232508 | Rudy | | HCL 50 MG | HRS PRN | | | HCL | 1 | Yaquelin | | TABS | PAIN | | | | | MD | + + + + + + + + | CLINDAMYCI | 1 tab by | | | CLINDAMYCI | 1330039651 | Tommy | | N HCL 150 [...] Inhale 2 | | | ALBUTEROL | 7383911146 | Phan | | 108 (90 | puffs | | | SULFATE | 2 | Middlekauf | | Base) | every 4 | | | | | f WINE CONSULTANT | | MCG/ACT | hours as | [...] tab q | | | OXYCODONE- | 0764185162 | Florecita | | 7.5-325 MG | 4 hrs for | | | ACETAMINOP | 0 | Suhr WINE CONSULTANT-C | | TABS | pain, hold | [...] po bid | | | HYDROCODON | 2847191829 | Cyndi [place] | | E-ACETAMIN | prn severe | | | E-ACETAMIN | 1 | [facility] | | OPHEN | pain | | | OPHEN | | | | 5-325 MG | | | | | | | | TABS | | | | | | | + + + + + + + + | NORCO | 4-6 per | | | HYDROCODON | 5471984278 | Karma | | 5-325 MG | day | | | E-ACETAMIN | 1 | Berenice CONRAD | | TABS | | | | OPHEN | | | + + + + + + + + | TRAMADOL | 1-2 TAB | | | TRAMADOL | 1994169270 | David | | HCL 50 MG | BID PRN | | | HCL | 1 | [place] | | TABS | PAIN | | | | | [place] | + + + + + + + + | GUAIFENESI | 1 tab | | | GUAIFENESI | 1764794204 | Kamra | | N 400 MG | every [...] 2tabs po | | | VARENICLIN | 9311166304 | Rudy | | MG TABS | qd | | | E TARTRATE | 6 | Yaquelin | | | | | | | | MD | + + + + + + + + | BISAC-EVAC | 1 | | | BISACODYL | 2031036558 | David | | 10 MG | [...] 1 tab | | | PSEUDOEPHE | 6548644156 | Phan | | DRINE HCL | by mouth | | | DRINE HCL | 2 | Middlekauf | | 30 MG TABS | four times | | | | | f WINE CONSULTANT | | | per day | | [...] 1tab by | | | HYDROCODON | 1713807031 | David | | 7.5-325 MG | [...] Take 1 | | | DOXYCYCLIN | 3201574511 | Malachi Levin | | E HYCLATE [...] 1 tablet | | | MELOXICAM | 8135695269 | Phan | | MG TABS | by mouth | | | | 1 | [place]kauf | | | daily. | | | | | f WINE CONSULTANT | | | Must last | | | | | | | | 30 days. | | | | | | + + + + + + + + | CLINDAMYCI | 1 tab by | | | CLINDAMYCI | 5598964386 | Malachi K | | N HCL [...] | prn | | | MAGNESIUM | 9100771862 | Melvina | | OF | constipati [...] By mouth | | | IBUPROFEN | 1673635028 | Andriy | | 200 MG | 3 times a | | | | 1 | Padovich | | TABS | day | | | | | WINE CONSULTANT | + + + + + + + + | CHANTIX 1 | 1 tab two | | | VARENICLIN | 6433059251 | Karma | | MG TABS | times per | | | E TARTRATE | 6 | Berenice CONRAD | | | day | | | | | | + + + + + + + + | HYDROCODON | Take 1 tab | | | HYDROCODON | 2140030543 | Karma | | E-ACETAMIN | po [...] tab BID | | | CYCLOBENZA | 6924852677 | David | | YESSY HCL | PRN muscle | | | YESSY HCL | 1 | [place] | | 10 MG TABS | pain | | | | | MA | + + + + + + + + | IBUPROFEN | three | | | IBUPROFEN | 3001082585 | Rudy | | 600 MG | times per | | | | 0 | Yaquelin | | TABS | day | | | | | MD | + + + + + + + + | CHANTIX | follow | | | VARENICLIN | 6135785746 | Marisel | | STARTING | coco [...] 1 by | | | TRAMADOL | 8725731695 | Marisel | | HCL 50 MG | mouth | | | HCL | 1 | Rubio WINE CONSULTANT | | TABS | every 6 | | | | | | | | hours | | | | | | + + + + + + + + | PSEUDOEPHE | 1-2 | | | PSEUDOEPHE | 1926022791 | Marisel | | DRINE HCL | tablets | | | DRINE HCL | 2 | Rubio WINE CONSULTANT | | 30 MG TABS | every [...] | 1-2 | | | PSEUDOEPHE | 5467371130 | Marisel | | DRINE HCL | tablets | | | DRINE HCL | 2 | Rubio WINE CONSULTANT | | 30 MG TABS | every [...] 1 spray | | | FLUTICASON | 0232758795 | Marisel | | ALLERGY | eash | | | E | 2 | Rubio WINE CONSULTANT | | RELIEF 50 | nostril | | | PROPIONATE | | | | MCG/ACT | once a day | | | | | | | SUSP | | | | | | | + + + + + + + + | GUAIFENESI | take 1 to | | | GUAIFENESI | 8852392108 | Marisel | | N 200 MG [...] take 1tab | | | VARENICLIN | 9993316375 | Rudy | | MG TABS | po daily | | | E TARTRATE | 6 | Yaquelin | | | | | | | | MD | + + + + + + + + | LISINOPRIL | 1 tab one | | | LISINOPRIL | 5975528427 | Rudy | | 20 MG | time per | | | | 1 | Yaquelin | | TABS | day | | | | | MD | + + + + + + + + | ELAVIL 25 | Take 1 | | | AMITRIPTYL | 0491492800 | Rudy | | MG TABS | tab po QHS | | | INE HCL | 0 | Yaquelin | | | | | | | | MD | + + + + + + + + | TRAMADOL | 1-2 TAB | | | TRAMADOL | 9383538402 | Rudy | | HCL 50 MG | BID PRN | | | HCL | 1 | Yaquelin | | TABS | PAIN | | | | | MD | + + + + + + + + | TRAMADOL | 1 TAB BID | | | TRAMADOL | 8669112244 | Rudy | | HCL 50 MG | PRN PAIN | | | HCL | 1 | Yaquelin | | TABS | | | | | | MD | + + + + + + + + | NORCO | 1tab by | | | HYDROCODON | 2683398773 | Rudy | | 7.5-325 MG | [...] TAB Q6 | | | TRAMADOL | 9488940011 | Prabhakar | | HCL 50 MG | HRS PRN | | | HCL | 1 | VanAnrooy | | TABS | PAIN | | | | | MD | + + + + + + + + | NORCO | 1tab po | | | HYDROCODON | 9821166482 | Rudy | | 7.5-325 MG | [...] tab po | | | HYDROCODON | 5482433178 | Rudy | | 5-325 MG | QD | | | E-ACETAMIN | 1 | Yaquelin | | TABS | | | | OPHEN | | MD | + + + + + + + + | TRAMADOL | take 1 tab | | | TRAMADOL | 8928579605 | Rudy | | HCL 50 MG | nightly | | | HCL | 1 | Yaquelin | | TABS | | | | | | MD | + + + + + + + + | NORCO | 1 every 8 | | | HYDROCODON | 6328417933 | Prabhakar | | 5-325 MG | hours as | | | E-ACETAMIN | 1 | VanAnrooy | | TABS | needed | | | OPHEN | | MD | + + + + + + + + | OXYCODONE | 1 tab q 4 | | | OXYCODONE | 9032045877 | Florecita | | HCL 15 MG | hrs PRN | | | HCL | 1 | Suhr WINE CONSULTANT-C | | TABS | pain | | | | | | + + + + + + + + | [facility]YS[facility] | take 1 tab | | | LYSINE | 0644666408 | Rudy | | 1000 MG | [...] tab q | | | OXYCODONE- | 9433729407 | Florecita | | 7.5-325 MG | 4 hrs for | | | ACETAMINOP | 0 | Suhr WINE CONSULTANT-C | | TABS | pain, hold | | | HEN | | | | | if | | | | | | | | somnolent | | | | | | | | or asleep. | | | | | | + + + + + + + + | PERCOCET | 1-2 tab q | | | OXYCODONE- | 7896389143 | Florecita | | 7.5-325 MG | 4 hrs PRN | | | ACETAMINOP | 0 | Suhr WINE CONSULTANT-C | | TABS | pain, | | | HEN | | | | | dispense | | | | | | | | #84 | | | | | | + + + + + + + + | TESSALON | Take three | | | BENZONATAT | 5016840709 | Loraine | | RACHEL 100 | [...] 1tab po | | | VARENICLIN | 8332160625 | Rudy | | MG TABS | bid | | | E TARTRATE | 6 | Yaquelin | | | | | | | | MD | + + + + + + + + | HYDROCODON | Take 1 tab | | | HYDROCODON | 8862744792 | Rudy | | E-ACETAMIN | po [...] po qd | | | LISINOPRIL | 2269665659 | Rudy | | 20 MG | | | | | 1 | Yaquelin | | TABS | | | | | | MD | + + + + + + + + | TRAMADOL | 1 TAB Q6 | | | TRAMADOL | 0094777217 | Prabhakar | | HCL 50 MG | HRS PRN | | | HCL | 1 | VanAnrooy | | TABS | PAIN | | | | | MD | + + + + + + + + | CEPACOL | 1 lozenge | | | BENZOCAINE | 1149789707 | Phan | | SORE | every 2 | | | -MENTHOL | 0 | Middlekauf | | THROAT | hours as | | | | | f WINE CONSULTANT | | 10-2.1 MG | needed for | | | | | | | LOZG | sore | | | | | | | | throat | | | | | | + + + + + + + + | GUAIFENESI | 1 tab | | | GUAIFENESI | 1534857094 | Phan | | N 400 MG | every 4 | | | N | 0 | Middlekauf | | TABS | hours as | | | | | f WINE CONSULTANT | | | needed for | | | | | | | | | | | | | | | | cough/yaw | | | | | | | | estion | | | | | | + + + + + + + + | PSEUDOEPHE | Take 1 tab | | | PSEUDOEPHE | 5222848500 | Malachi Levin | | DRINE HCL [...] Take 3 | | | PREDNISONE | 8066990287 | Malachi K | | 20 MG [...] 1 tab | | | OXYCODONE- | [id number] | Malachi Levin | | ACETAMINOP | [...] 1 tab | | | CYCLOBENZA | [id number] | Malachi Levin | | YESSY HCL [...] Take 1 | | | GABAPENTIN | [id number] | Malachi K | | 300 MG [...] po bid | | | HYDROCODON | [id number] | Tommy | | E-ACETAMIN | prn [...] 1 tablet | | | MELOXICAM | [id number] | Jovany | | MG TABS | [...] | | | | | | | WINE CONSULTANT | + + + + + + [...] | | | | | | | WINE CONSULTANT | +---------+ + + + + + | CODEINE | Itch | | Critical | No Longer | Skye | | | | | | Active | Epifanio WINE CONSULTANT | +---------+ + + + + + | SULFA | Break out in | | Critical | | Skye | | | hives | | | | Epifanio WINE CONSULTANT | +---------+ + + + + + [...] +--------+ +---+---+---+ + | | ESM_RR | [id number] | | | B | e-scripts | [...] | | | | | | | [id number]` | | | | | | | | [id number] | | | | | | | [...] | | | Dietary | | | PRODUCER ARBORIST MANAGER | | | | | management [...] | | | Dietary | | | PRODUCER ARBORIST MANAGER | | | | | management [...] + + +---+ + + + | Intermediate Facility: Nursing Facility Care / Discharge anticipated [...] + + +---+ + + + | Intermediate Facility: Nursing Facility Care / Initial Encounter [...] +--------+-----+---+---------+---+ + + + | Office Visit: SALES PROMOTER 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- lft hip pain | + [...] | | | Dietary | | | PRODUCER ARBORIST MANAGER | | | | | management [...] [address], | | | | [place], [address], | + + + + | Appointment | 01:00 PM | Marisel Bergeron WINE CONSULTANT, [address] | | | | [facility] [address], | | | | [place], [address], | | | | | + + + + | Referral | | ENT Consult | | | | SHERPA assistant Phone #, [phone] | | | [address], | | | | [place], [address] | | | | | + + + + | Referral | | ENT Consult | | | | [facility] Phone #, [phone] | | | | [address] , | | | | [place], [address] | | | | | + + + + | Referral | | Podiatry Consult | | | | GUILLERMO Haley, | | | | [address] [facility], | | | | [place], [address] | | | | | + + [...] | + + + + + | [id number] | Overweight | | | + + + + + | CPT-J1885 | Toradol 15mg | | | + + + + + | CPT-81197 | Theraputic | | | | | Injection (IM/SubQ) | | | + + + + + | [id number] | Overweight | | | + + + + + | CPT-32419 | Theraputic | | | | | Injection (IM/SubQ) | | | + + + + + | CPT-J1885 | Toradol 15mg | | | + + + + + | CPT-42014 | Urine Toxicology | | | | | Screen, Multiple | | | | | Drug Classes by | | | | | Direct Optical | | | | | Observation | | | + + + + + | CPT-99907 | [address] Individual | | | | | Therapy (53-112) | | | | | No POS Phone | | | + + + + + | CPT-04836 | XR Hip W/Pelvis | | | | | 2-3V-Lt | | | + + + + + | CPT-54828 | Theraputic | | | | | Injection (IM/SubQ) | | | + + + + + | CPT-J1885 | Toradol 15mg | | | + + + + + | CPT-06605 | Urine Toxicology | | | | | Screen, Multiple | | | | | Drug Classes by | | | | | Direct Optical | | | | | Observation | | | + + + + + | CPT-98949 | Theraputic | | | | | Injection (IM/SubQ) | | | + + + + + | CPT-J1885 | Toradol 15mg | | | + + + + + | CPT-77973 | Theraputic | | | | | Injection (IM/SubQ) | | | + + + + + | CPT-J1885 | Toradol 15mg | | | + + + + + | CPT-18243 | Theraputic | | | | | Injection (IM/SubQ) | | | + + + + + | CPT-J1885 | Toradol 15mg | | | + + + + + | CPT-03422 | XR Hip W/Pelvis | | | | | 2-3V-Lt | | | + + + + + | CBC AUTO 36290 | CBC w/ Auto Diff | | | + + + + + | CPT-92399 | XR Hip W/Pelvis | | | | | 2-3V-Lt | | | + + + + + | CBC AUTO 26013 | CBC w/ Auto Diff | | | + + + + + | M NOS MRSA 43106 | Nose Culture, MRSA | | | | | Only | | | + + + + + | CHEM 8 36351 | Basic Metabolic | | | | | Panel | | | + + + + + | CPT-00892 | Health Risk | | | | | Assessment | | | + + + + + | GLYCO HGB 32631 | Glyco Hemoglobin, | | | | | A1C | | | + + + + + | CPT-36167 | Health Risk | | | | | Assessment | | | + + + + + | CPT-45037 | Health Risk | | | | | Assessment | | | + + + + + | U NICOTINE 93737 | Cotinine | | | + + + + + | 65472 | MR Hip-WO Con-Lt | | | + + + + + | CPT-63126 | XR Hip W/Pelvis | | | | | 2-3V-Lt | | | + + + + + | CPT- 72180 | Administration | | | | | (97471) | | | + + + + + | CPT-J1885 | Toradol Inj. 60mg | | | + + + + + | CPT-39972 | Urine Tox, multiple | | | | | drug classes | | | + + + + + | 35986 | XR Foot 2V-Rt | | | + + + + + | [id number] | [Recorded for CQM] | | | | | Pedal pulse taking | | | | | (procedure) | | | + + + + + | [id number] | [Recorded for CQM] | | | | | Documentation of | | | | | current medications | | | | | (procedure) | | | + + + + + | [id number] | [Recorded for CQM] | | | | | Health-related | | | | | behavior | | | + + + + + | [id number] | MU Generic Patient | | | | | Encounter Service | | | | | (from patch) | | | + + + + + | [id number] | [Recorded for CQM] | | | | | Pedal pulse taking | | | | | (procedure) | | | + + + + + | [id number] | [Recorded for CQM] | | | | | Documentation of | | | | | current medications | | | | | (procedure) | | | + + + + + | [id number] | [Recorded for CQM] | | | | | Drug or Medication | | | + + + + + | [id number] | [Recorded for CQM] | | | | | Details of drug | | | | | misuse behavior | | | + + + + + | [id number] | [Recorded for CQM] | | | | | Never smoker | | | + + + + + | [id number] | [Recorded for CQM] | | | | | Never smoked | | | | | tobacco (finding) | | | + + + + + | [id number] | [Recorded for CQM] | | | | | Tobacco use and | | | | | exposure | | | + + + + + | 633751486 | [Recorded for CQM] | | | | | Alcohol intake | | | + + + + + | [id number] | [Recorded for CQM] | | | | | Allergy | | | + + + + + | 943394183 | [Recorded for CQM] | | | | | Alcohol intake | | | + + + + + | 689845586 | [Recorded for CQM] | | | | | Tobacco use and | | | | | exposure | | | + + + + + | 603678131 | [Recorded for CQM] | | | | | Details of drug | | | | | misuse behavior | | | + + + + + | 062285655 | [Recorded for CQM] | | | | | Drug or Medication | | | + + + + + | [id number] | [Recorded for CQM] | | | | | Current Light | | | | | tobacco smoker | | | + + + + + | [id number] | [Recorded for CQM] | | | | | Light tobacco | | | | | smoker (finding) | | | + + + + + | [id number] | [Recorded for CQM] | | | | | Documentation of | | | | | current medications | | | | | (procedure) | | | + + + + + | [id number] | [Recorded for [facility]] | | | | | Pedal pulse taking | | | | | (procedure) | | | + + + + + | 20199 | XR Foot 2V-Rt | | | [...]
--- OUTSIDE RECORDS SUMMARY | ~2019-09-25 | XMS | Continuity of Care Document ---
Demographics + + + | Address | [address] | | | [place] [address] | + + + | Home Phone | | + + + | Preferred Language | Unknown | + + + | Marital Status | Unknown | + + + | Denominational Affiliation | Unknown | + + + | Race | Unknown | + + + | Ethnic Group | Unknown | + + + Author + + + | Author | [facility] | + + + | Organization | [facility] | + + + | Address | [address] | | | [place] [address] | + + + | Phone | | + + + Support + + + + + | Name | Relationship | Address | Phone | + + + + + | DOCTOR, NO PCP | Caregiver | [address] | | | | | [place] | | | | | [address] | | + + + + + | Daina Rogers | Caregiver | Emergency Services | | | [place] | | [place] [address] | | + + + + + | JAYME KIRK | Next Of Kin | [place] [address] | | + + + + + Care Team Providers + + + + | Care Disc Pad Grinding Machine Feeder Name | Role | Phone | + + + + | IOANA CAMPO | Unavailable | | + + + + Insurance Providers + + + + + | Payer Name | Policy Number | Subscriber Name | Relationship | + + + + + | UMPQUA | [id number] | BOBBY STODDARD | SELF | + + + + + Chief Complaint and Reason for Visit + + + | Reason for Visit | DENTAL PAIN | + + + Problems Active Medical [...] Needed as needed | | | | (Mcdonough 5-325 | for PAIN | | | | Tablet) 1 Each | | | | | Tablet Tablet, 1-2 | | | | | Tab Oral | | | | + + + + + | Hydrocodone/Acetami | | Unknown | Discontinued | | nophen (Mcdonough | | | | | 5MG-325MG) 5 [...] Mg | Pain | | | | (Mcdonough 10-325 Mg) | | | | | 10 Mg/325 Mg Tab | | | | | Tab, 0.5-1 Tab Oral | | | | + + + + + | Hydrocodone/Apap | Every 6 Hours | 08/15/16 | Discontinued | | 5-325 Mg (Mcdonough | | | | | 5-325 Mg) [...] | Tabneal | | | | | Tabneal, 1 Tab | | | | | [...] + + + | Discharge Date | 04/18/17 | + + + | Disposition | HOME | + + + | Prescriptions | See Medications Section | + + + Functional Status No [...] No Known History of Immunizations. Vital Signs No Known Vital Signs Results. Results No known relevant diagnostic tests, laboratory data and/or discharge summary. Procedures No Known History of Procedures. Encounters + + + + + + | Encounter | Location | Arrival/Admit | Discharge/Depar | Attending | | | | Date | t Date | Provider | + + + + + + | Departed | [facility] MARTINO | 04/18/17 | 04/18/17 | Ken | | Emergency | [facility] [place] | 10:05am | 11:00am | Daina GONGORA | + + + + + +"
--- OUTSIDE RECORDS SUMMARY | ~2019-09-25 | XMS | Continuity of Care Document ---
Demographics + + + | Address | [address] | | | [place] [address] | + + + | Home Phone | | + + + | Preferred Language | Unknown | + + + | Marital Status | Unknown | + + + | Roman Catholic Affiliation | Unknown | + + + | Race | Unknown | + + + | Ethnic Group | Unknown | + + + Author + + + | Author | [facility] | + + + | Organization | [facility] | + + + | Address | [address] | | | [place] [address] | + + + | Phone | Unavailable | + + + Support + + + + + | Name | Relationship | Address | Phone | + + + + + | SRAVAN Richardson | Caregiver | [facility] | | | [place] | | [facility] [place], | | | | | [place] [address] | | + + + + + | Rudy Jamison MD | Caregiver | [address] | | | | | [place] [address] | | + + + + + | JAYME KIRK | Next Of Kin | [place] [address] | | + + + + + Care Team Providers + + + + | Care College Counselor Name | Role | Phone | + + + + | Rudy Jamison MD | Unavailable | | + + + + Insurance Providers + + + + + | Payer Name | Policy Number | Subscriber Name | Relationship | + + + + + | DCIPA/OHP | [id number] | BOBBY STODDARD | SELF | + + + + + Chief Complaint and Reason for Visit + + + | Reason for Visit | FELL HIP KNEE PAIN RECENT HIP REPLACEMENT | + + + Problems Active Medical [...] | Every 6 | 5 | | // | | one/Apap | | | | Hours | | | | | 5-325 | | | | | | | | | MG | | | | | | | | | (Switzer | | | | | | | [...] Needed PRN PAIN | | | | (Switzer 5-325 | | | | | Tablet) 1 Each | | | | | Tablet Tablet, 1-2 | | | | | Tab Po | | | | + + + + + | Hydrocodone/Acetami | | Unknown | Discontinued | | nophen (Switzer | | | | | 5MG-325MG) 5 [...] Mg | Pain | | | | (Switzer 10-325 Mg) | | | | | [...] + + + | Discharge Date | 04/17/17 | + + + | Disposition | HOME | + + + | Condition at Discharge | Good | + + + | Instructions/Education Provided | Hip Pain | | | Total Hip Replacement, Care After | + + + | Prescriptions | See Medications Section | + + + | Referrals | Rudy Jamison MD - | + + + | Additional Instructions/Education | Follow up with your Primary Provider in | | | 1-2 days. Follow up with your ortho | | | provider as soon as you are able to get an | | | appointmentthey should call you to set up | | | an appointment Take pain medication | | | sparingly!! Drink fluids. If your symptoms | | | worsen return to the Emergency Department | | | immediately. | + + + Functional Status No [...] + + + | Blood Pressure | 08/15/16 11:57am | 158/96 | + + + + | Blood Pressure Source | 06/17/16 4:24am | Right Arm | + + + + | Patient Temperature | 08/15/16 11:57am | 98.4 | + + + + | Temperature Source | 08/15/16 11:57am | Temporal | + + + + | Respiratory Rate | 08/15/16 11:57am | 16 | + + + + | Pulse Rate | 08/15/16 11:57am | 108 | + + + + | Bedside Pulse Oximetry | 08/15/16 11:57am | 98 | + + + + | Height | 08/15/16 11:57am | 6 ft 1 in | + + + + | Weight | 08/15/16 11:57am | 117.93 kg | + + + + | Weight | 08/15/16 11:57am | 260 lb | + + + + | Body Mass Index | 08/15/16 11:57am | 34.3 | + + + + Results Laboratory [...] + + + + | White | 6.14 | K/mm3 | | 4.00-11. | 08/15/16 | 08/15/16 | | | Blood | | | | 30 | 11:44am | 12:31pm | | | Count | | | | | | | | + +--------+ +-------+ + + + + | Red | 4.93 | M/mm3 | | 4.30-5.9 | 08/15/16 | 08/15/16 | | | Blood | | | | 0 | 11:44am | 12:31pm | | | Count | | | | | | | | + +--------+ +-------+ + + + + | Hemoglob | 13.8 | g/dL | | 13.5-17. | 08/15/16 | 08/15/16 | | | in | | | | 5 | 11:44am | 12:31pm | | + +--------+ +-------+ + + + + | Hematocr | 43.1 | % | | 37.0-53. | 08/15/16 | 08/15/16 | | | it | | | | 0 | 11:44am | 12:31pm | | + +--------+ +-------+ + + + + | Mean | 87 | fL | | 80-100 | 08/15/16 | 08/15/16 | | | Corpuscu | | | | | 11:44am | 12:31pm | | | lar | | | | | | | | | Volume | | | | | | | | + +--------+ +-------+ + + + + | Mean | 28.0 | pg | | 26.0-34. | 08/15/16 | 08/15/16 | | | Corpuscu | | | | 0 | 11:44am | 12:31pm | | | lar | | | | | | | | | Hemoglob | | | | | | | | | in | | | | | | | | + +--------+ +-------+ + + + + | Mean | 32.0 | g/dL | | 31.5-36. | 08/15/16 | 08/15/16 | | | Corpuscu | | | | 5 | 11:44am | 12:31pm | | | lar | | | | | | | | | Hemoglob | | | | | | | | | in | | | | | | | | | Concent | | | | | | | | + +--------+ +-------+ + + + + | RDW | 47.8 | fL | H | 35.1-46. | 08/15/16 | 08/15/16 | | | Standard | | | | 3 | 11:44am | 12:31pm | | | | | | | | | | | | Deviatio | | | | | | | | | n | | | | | | | | + +--------+ +-------+ + + + + | RDW | 15.0 | % | H | 11.7-14. | 08/15/16 | 08/15/16 | | | Coeffici | | | | 2 | 11:44am | 12:31pm | | | ent of | | | | | | | | | Variatio | | | | | | | | | n | | | | | | | | + +--------+ +-------+ + + + + | Platelet | 310 | K/mm3 | | 150-400 | 08/15/16 | 08/15/16 | | | Count | | | | | 11:44am | 12:31pm | | + +--------+ +-------+ + + + + | Mean | 10.4 | fL | | 9.1-12.4 | 08/15/16 | 08/15/16 | | | Platelet | | | | | 11:44am | 12:31pm | | | Volume | | | | | | | | + +--------+ +-------+ + + + + | Differen | Auto | | | | 08/15/16 | 08/15/16 | | | tial | | | | | 11:44am | 12:31pm | | | Method | | | | | | | | + +--------+ +-------+ + + + + | Neutroph | 57 | % | | 41-73 | 08/15/16 | 08/15/16 | | | ils (%) | | | | | 11:44am | 12:31pm | | | (Auto) | | | | | | | | + +--------+ +-------+ + + + + | Lymphocy | 32 | % | | 21-46 | 08/15/16 | 08/15/16 | | | wicho (%) | | | | | 11:44am | 12:31pm | | | (Auto) | | | | | | | | + +--------+ +-------+ + + + + | Monocyte | 9 | % | | 4-13 | 17 | 08/15/16 | | | s (%) | | | | | 11:44am | 12:31pm | | | (Auto) | | | | | | | | + +--------+ +-------+ + + + + | Eosinoph | 2 | % | | 0-6 | 08/15/16 | 08/15/16 | | | ils (%) | | | | | 11:44am | 12:31pm | | | (Auto) | | | | | | | | + +--------+ +-------+ + + + + | Basophil | 1 | % | | 0-2 | 08/15/16 | 08/15/16 | | | s (%) | | | | | 11:44am | 12:31pm | | | (Auto) | | | | | | | | + +--------+ +-------+ + + + + | Immature | 0 | % | | 0-1 | 08/15/16 | 08/15/16 | | | | | | | | 11:44am | 12:31pm | | | Granuloc | | | | | | | | | yte % | | | | | | | | | (Auto) | | | | | | | | + +--------+ +-------+ + + + + | Nucleate | 0.0 | /100 WBC | | 0.0-0.2 | 08/15/16 | 08/15/16 | | | d Red | | | | | 11:44am | 12:31pm | | | Blood | | | | | | | | | Cells % | | | | | | | | + +--------+ +-------+ + + + + | Absolute | 3.47 | K/mm3 | | 1.96-9.1 | 08/15/16 | 08/15/16 | | | | | | | 5 | 11:44am | 12:31pm | | | Neutroph | | | | | | | | | ils | | | | | | | | | (auto) | | | | | | | | + +--------+ +-------+ + + + + | Absolute | 1.99 | K/mm3 | | 0.84-5.2 | 08/15/16 | 08/15/16 | | | | | | | 0 | 11:44am | 12:31pm | | | Lymphocy | | | | | | | | | wicho | | | | | | | | | (auto) | | | | | | | | + +--------+ +-------+ + + + + | Absolute | 0.52 | K/mm3 | | 0.16-1.4 | 08/15/16 | 08/15/16 | | | | | | | 7 | 11:44am | 12:31pm | | | Monocyte | | | | | | | | | s (auto) | | | | | | | | + +--------+ +-------+ + + + + | Absolute | 0.10 | K/mm3 | | 0.00-0.6 | 08/15/16 | 08/15/16 | | | | | | | 8 | 11:44am | 12:31pm | | | Eosinoph | | | | | | | | | ils | | | | | | | | | (auto) | | | | | | | | + +--------+ +-------+ + + + + | Absolute | 0.04 | K/mm3 | | 0.00-0.2 | 08/15/16 | 08/15/16 | | | | | | | 3 | 11:44am | 12:31pm | | | Basophil | | | | | | | | | s (auto) | | | | | | | | + +--------+ +-------+ + + + + | Absolute | 0.02 | K/mm3 | | 0.00-0.1 | 08/15/16 | 08/15/16 | | | | | | | 0 | 11:44am | 12:31pm | | | Immature | [...] 0.00 | K/mm3 | | 0.00-0.0 | 08/15/16 | 08/15/16 | | | d RBC | | | | 2 | 11:44am | 12:31pm | | | Absolute | | | | | | | | | Count | | | | | | | | | (auto) | | | | | | | | + +--------+ +-------+ + + + + | Sediment | 6 | mm/hr | | 0-20 | 08/15/16 | 08/15/16 | | | ation | | | | | 11:44am | 12:40pm | | | Rate, | | | | | | | | | Westergr | | | | | | | | | en | | | | | | | | + +--------+ +-------+ + + + + | C-Reacti | <0.290 | mg/dL | | 0.000-0. | 08/15/16 | 08/15/16 | | | ve | | | | 300 | 11:44am | 12:40pm | | | Protein | | | | | | | | | Extended | | | | | | | | | Range | | | | | | | | + +--------+ +-------+ + + + + Procedures No Known History of Procedures. Encounters + + + + + + | Encounter | Location | Arrival/Admit | Discharge/Depar | Attending | | | | Date | t Date | Provider | + + + + + + | Departed | [facility] | 08/15/16 | 08/15/16 1:35pm | SRAVAN Richardson | | Emergency | [facility] | 11:53am | | [place] | + + + + + + | Registered | [facility] | 08/15/16 | | Uzma | | Referral | [facility] | 11:25am | | Prabhakar Chambers MD | + + + + + + + + | Encounter Diagnosis | + + | Falls | + + | Knee pain | + +"
--- OUTSIDE RECORDS SUMMARY | ~2019-09-25 | XMS ---
Demographics + + + | Address | [address] | | | [place] [address] | + + + | Home Phone | ;ext=1 | + + + | Preferred Language | Unknown | + + + | Marital Status | U | + + + | Episcopal Affiliation | Unknown | + + + | Race | White | + + + | Ethnic Group | Not or | + + + Author + + + | Author | [facility] | + + + | Organization | [facility] | + + + | Address | [address] | | | [place] [address] | + + + | Phone | Unavailable | + + + Care Team Providers + +------+ + | Care Sewer Head Name | Role | Phone | [...] | | tion | | +---------+---------+---------+--------+---------+---------+---------+---------+---------+ | RECTAL | [id number] | | Active | | Marisel | | Rectal | | | BLEEDIN | 2 | /11 | | /11 | Rubio | | hemorrh | | | G | (SNOMED | | | | [employer]TAIN | | age | | | | CT) | | | | | | | | +---------+---------+---------+--------+---------+---------+---------+---------+---------+ Medications + + + + + + + + | Medication | Instructio | Start Date | Stop Date | Generic | NDC | Provider | | | ns | | | Name | | | + + + + + + + + | MIRALAX | Mix 17gm | | | POLYETHYLE | [id number] | Marisel | | POWD | of powder | | | NE GLYCOL | 2 | Rubio [employer] | | | with | | | 3350 | | | | | liquid per | | | | | | | | day | | | | | | + + + + + + + + | CARDIZEM | 1 by mouth | | | DILTIAZEM | [id number] | Marisel | | 60 MG TABS | twice | | | HCL | 7 | Rubio [employer] | | | daily for | | | | | | | | 8 weeks | | | | | | + + + + + + + + | FLEET | Insert 1 | | | BISACODYL | [id number] | Marisel | | BISACODYL | enema into | | | | 6 | Rubio [employer]TAIN | | 10 MG/30ML | rectum | [...] | | | Dietary | | | [employer] | | | | | management | [...] | | ) | + +---------+---------+---+---+---+ + Plan of Care + + + + | Type | Date | Detail | + + + + | Referral | | GI Consult | + + + + Procedures + + + + + | Code | Procedure Name | Date | Entry Date | + + + + + | [facility]-[id number] | Overweight | | | + + [...] | | + + + | | Impression & Plan Problem 1: ANAL | | | FISSURE (ICD-565.0) (DOG03-J47.2) Status: | | | Inadequately Controlled Encouraged | | | patient to continue applying topical | | | ointments, keeping the area clean and | | | moist, miralax and enema to avoid | | | constipation. Cardizem was sent in to the | | | pharmacy. This visit was not finished due | | | to patient being agitated, recommendations | | | were given but patient was unhappy with | | | options given and overall was wanting pain | | | medication which was not considered due | | | to risk for constipation. Referral sent to | | | GI. Miralax oral powder Mix 17gm of | | | powder with liquid per day, Fleet | | | bisacodyl 10 mg/30ml rectal enema Insert 1 | | | enema into rectum may repeat next day | | | PRN, Cardizem 60 mg oral tablet 1 by mouth | | | twice daily for 8 weeks GI | | | Consult, OV Est Level III (81697) | | | ........................ Return to | | | clinic in: PRN Med List: | | | (Reconciled) * [facility] TYLENOL 8 | | | HOUR ARTHRITIS PAIN 650 MG ORAL TABLET | | | EXTENDED RE (ACETAMINOPHEN) 1 tablet every | | | 4 hours as needed for pain/fever MIRALAX | | | ORAL POWDER (POLYETHYLENE GLYCOL 3350) | | | Mix 17gm of powder with liquid per day | | | FLEET BISACODYL 10 MG/30ML RECTAL ENEMA | | | (BISACODYL) Insert 1 enema into rectum may | | | repeat next day PRN CARDIZEM 60 MG ORAL | | | TABLET (DILTIAZEM HCL) 1 by mouth twice | | | daily for 8 weeks Allergy List: | | | (Reviewed) SULFA (SULFADIAZINE) | | | (Critical) Meaningful Use Med List: | | | (Reconciled) Chief Complaint: | | | f/u anal fissure, pain meds HPI | | | Chronic 52yr old male here f/u on anal | | | fissure and request pain meds. Patient | | | reports that this has been going on around | | | 4 weeks he has not been able to get the | | | medication to resolve issue because | | | insurance will not cover it. He has been | | | experiencing pain and bleeding from the | | | area. Tylenol is not helping for the pain | | | but Ibuprofen has helped some. He reports | | | he has done everything possible and | | | nothing is helping and he is going to go | | | to the ER everyday if someone does not | | | help him. Medical History Sinus | | | Mass 05/2017 TOTAL HIP ARTHROPLASTY, LEFT | | | (ICD-V43.64) (BVV79-J89.642) HYPERTENSION | | | (ICD-401.9) (EVJ80-W81) ELEVATED BLOOD | | | SUGAR (ICD-790.29) (CPE77-N11.9) NICOTINE | | | ADDICTION (ICD-305.1) (YQP79-J60.200) | | | AVASCULAR NECROSIS OF FEMORAL HEAD | | | (ICD-733.42) (QUL02-Q17.059) OTHER | | | OSTEONECROSIS, LEFT FEMUR (URR13-J71.852) | | | OPIOID ABUSE, CONTINUOUS (ICD-305.51) | | | (LGL09-C80.10) HIP PAIN, LEFT | | | (ICD-719.45) (ZXP76-O55.552) LESION OF | | | PLANTAR NERVE (ICD-355.6) Surgical | | | History rt foot 2013 Left hip total | | | arthroplasty, 06/14/16 - Dr. 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 Cardiovascular: History reveals | | | negative for chest pain, palpitations. | | | Respiratory: History reveals negative for | | | dyspnea. Gastrointestinal: History | | | reveals positive for diarrhea. Anal | | | fissure History reveals negative for | | | nausea, vomiting, constipation. | | | Neurologic: History reveals negative for | | | seizures, headaches. Risk Factors | | | Tobacco Use: Former smoker Passive Smoke | | | Exposure: no Alcohol Use:current Year | | | Started: 1978 Average drink(s) per day: | | | <1 Type: beer Drug Use: none Comments: | | | Denies all drug use | | | .......................................... 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 Weight: 243.6 lbs. Temp: | | | 98.0deg.(tympanic) Pulse: 80(irregular) | | | Resp: 16 BMI: 34.10 Wt ch.40 | | | Pulse Oximetry: O2 sat. at rest is 97% on | | | RA BMI Recommendation: Nutrition | | | Counseling BP #1: 130/80 | | | Position:standing Pulse:80 Site:left arm | | | Time:8:28 AM Vitals entered by: Brionna | | | Lazaro on September 08, 2017 8:27 AM Health | | | Risk Screening 1. Do you now or have you | | | ever used tobacco? Previous 2. How many | | | times in the past year have you had 5 or | | | more drinks in a day? | | | 1 or more 3. Do | | | you sometimes use drugs recreationally, | | | including marijuana without a Medical | | | Marijuana Card, or prescription drugs more | | | than they are prescribed for or just for | | | the way they make you feel? None In the | | | last two weeks have you been bothered by: | | | 4. A). Little interest or pleasure in | | | doing things? No B). Feeling down, | | | depressed or hopeless? No Physical | | | Exam General: Well developed, well | | | nourished, in some distress Head: | | | Normocephalic, atraumatic Eyes: PERRL, | | | EOM intact, conjunctiva and sclera clear, | | | without nystagmus, lids normal Neck: | | | Supple, FROM Chest Wall: Grossly normal | | | appearance Lungs: Patient non compliant | | | Heart: Patient non compliant Rectal: | | | deferred MSK: Grossly normal Neurologic: | | | Normal muscle strength, normal tone | | | Psych: anxious, agitated | | | Prescriptions: CARDIZEM 60 MG ORAL TABLET | | | (DILTIAZEM HCL) 1 by mouth twice daily | | | for 8 weeks #60 x 1 Entered by: Brionna | | | Lazaro Authorized by: Marisel Bergeron [employer] | | | Signed by: Brionna Willis on 09/08/2017 | | | Method used: Electronically to [facility] | | | [facility] (retail) [address] | | | [place] [address] Ph: | | | [phone] Fax: [phone] RxID: | | | [id number] FLEET BISACODYL 10 | | | MG/30ML RECTAL ENEMA (BISACODYL) Insert 1 | | | enema into rectum may repeat next day PRN | | | #2 x 0 Entered by: Brionna Willis | | | Authorized by: Marisel Bergeron [employer]TAIN Signed | | | by: Brionna Willis on 09/08/2017 Method | | | used: Electronically to [facility] - | | | [facility] (retail) [address] | | [place] [address] Ph: | | | [phone] Fax: [phone] RxID: | | | [id number] MIRALAX ORAL POWDER | | | (POLYETHYLENE GLYCOL 3350) Mix 17gm of | | | powder with liquid per day #1 x 1 | | | Entered by: Brionna Willis Authorized by: | | | Marisel Bergeron [employer]TAIN Signed by: Brionna | | | Lazaro on 09/08/2017 Method used: | | | Electronically to [facility] | | | [facility]* (retail) [address] | | | [place] [address] Ph: [phone] | | | Fax: [phone] RxID: [id number] | | | Marisel Bergeron, [employer]TAIN was present | | | during the encounter with this patient as | | | recorded by the scribe. Provider was | | | present during identification clerk of the visit, | | | reviewed the documentation for accuracy | | | and performed the services as documented. | | | Portions of this section were | | | transcribed by | | | .......................................... | | | .........................Brionna Willis | | | September 08, 2017 8:37 AM | + + + Reason for Referral No information available. Advance Directives No information available. Assessments No information available. Chief Complaint + + + | Chief Complaint Description | Start Date | + + + | f/u anal fissure, pain meds | | + + + Encounters + + + + + + | Code | Encounter | Date | Provider | Facility | + + + + + + | CPT-[id number] | OV Est Level | | Marisel Bergeron | [facility] | | | III ([id number]) | | [employer] [facility] | + + + + + + Family History No information available. Functional Status Assessment No information available. History of Past Illness No information available. History of Present Illness No information available. Instructions No information available. Medical (General) History No information available. Payers + +--------+ + | Payer | Policy | Covered Democrat | + +--------+ + | UHA | | Nayan Reid | + +--------+ + | UHA-OHP 12 [id number] 2016 | | Nayan Reid | + +--------+ [...] + | DMAP &401 | | [place] | + +--------+ + | DMAP Fee for Service | | [place]ayan [place] | + +--------+ + | Sliding Fee Scale | | [place]ayan [place] | + +--------+ + | Sliding Fee Scale | | [place]ayan [place] | + +--------+ + | DCIPA OHP | | | + +--------+ + Physical Examination + + + + + | Date | Exam | Name | Description | + + + + + | | BP DIASTOLIC | Diastolic blood | 80 | | | | pressure | | + + + + + | | BP DIASTOLIC | BP Diastolic | 80 | + + + + + | | BP SYSTOLIC | Systolic blood | 128 | | | | pressure | | + + + + + | | BP SYSTOLIC | BP Systolic | 128 | + + + + + | | BP RED #2 | Diastolic blood | 80 | | | | pressure | | + + + + + | | BP RED #2 | BP Diastolic | 80 | + + + + + | | BP SYS #2 | Systolic blood | 130 | | | | pressure | | + + + + + | | BP SYS #2 | BP Systolic | 130 | + + + + + | | RESP RATE | Respiratory Rate | 16 | + + + + + | | PULSE RATE | Heart rate | 80 | + + + + + | | PULSE RATE | Heart Rate | 80 | + + + + + | | TEMPERATURE | Body Temperature | 98.0 | + + + + + | | BMI | Body mass index | 34.10 | | | | (BMI) [Ratio] | | + + + + + | | BMI | Body mass index | 34.10 | | | | (BMI) [Percentile] | | | | | Per age and gender | | + + + + + | | BMI | BMI (Body Mass | 34.10 | | | | Index) | | + + + + + | | WEIGHT | Body weight | 243.6 | | | | Measured | | + + + + + | | WEIGHT | Weight Measured | 243.6 | + + + + + | | HEIGHT | Body height | 71 | + + + + + | | HEIGHT | Height | 71 | + + + + + Review of Systems + + + | Review of Systems Description | Start Date | + + + | History reveals negative for fevers, | | | chills, sweats. | | + + + | History reveals negative for dyspnea. | | + + + | History reveals negative for seizures, | | | headaches. | | + + + | History reveals positive for diarrhea. | | | Anal fissure History reveals negative for | | | nausea, vomiting, constipation. | | + + + | History reveals negative for chest pain, | | | palpitations. | | + + + Social History + + + +-------+ [...]
--- OUTSIDE RECORDS SUMMARY | ~2019-09-25 | XMS | Clinical Summary ---
Demographics + + + | Address | General Delivery | | | [place] [address] | + + + | Home Phone | ;ext=1 | + + + | Preferred Language | Unknown | + + + | Marital Status | U | + + + | Congregation Affiliation | Unknown | + + + | Race | White | + + + | Ethnic Group | Not or | + + + Author + + + | Author | [facility] | + + + | Organization | [facility] | + + + | Address | [address] | | | [place] [address] | + + + | Phone | Unavailable | + + + Care Team Providers + +------+ + | Care Cloth Desizing Range Tender Name | Role | Phone | [...] tion | | +---------+---------+---------+---------+---------+---------+---------+---------+---------+ | ANEMIA | [id number] | | Active | | Florecita | | Anemia | | | | 00 | / | | / | Suhr | | | | | | (SNOMED | | | | FORKLIFT PICKER-C | | | | | | CT) | | | | | | | | +---------+---------+---------+---------+---------+---------+---------+---------+---------+ | APHTHOU | [id number] | | Active | | Luis | | Rosales | | | S ULCER | 05 | / | | /21 | page Pimentel | | s ulcer | | | OF | (SNOMED | | | | MA | | of | | | MOUTH | CT) | | | | | | mouth | | +---------+---------+---------+---------+---------+---------+---------+---------+---------+ | DIFFICU | [id number] | | Active | | Nayan | | Walking | | | LTY IN | 08 | /20 | | /20 | Hersche | | | | | WALKING | (SNOMED | | | | r DO | | disabil | | | | CT) | | | | | | ity | | +---------+---------+---------+---------+---------+---------+---------+---------+---------+ | TOTAL | [id number] | | Active | | Florecita | | Total | | | HIP | 7 | /17 | | /17 | Suhr | | replace | | | ARTHROP | (SNOMED | | | | FORKLIFT PICKER-C | | ment of | | [...] , | -CM) | | | | FORKLIFT PICKER-C | | osteoar | | | [...] | | | +---------+---------+---------+---------+---------+---------+---------+---------+---------+ | FOOT | [id number] | | Resolve | | Florecita | | Foot | | | PAIN, | 7 | / | d | /15 | Suhr | | pain | | | RIGHT | (SNOMED | | | | FORKLIFT PICKER-C | | | | | | CT) | | | | | | | | +---------+---------+---------+---------+---------+---------+---------+---------+---------+ | RECTAL | [id number] | | Resolve | | Florecita | | Rectal | per | | BLEEDIN | 2 | /15 | d | /15 | Suhr | | hemorrh | Sacred | | G | (SNOMED | | | | FORKLIFT PICKER-C | | age | Heart | | | CT) | | | | | | | [facility] | | | | | | | | | | nd ER | | | | | | | | | | visit | | | | | | | | | | 05/11/14 | +---------+---------+---------+---------+---------+---------+---------+---------+---------+ | ANAL | [id number] | | Resolve | | Florecita | | Anal | per | | FISSURE | 6 | /30 | d | /30 | Suhr | | fissure | Alexander | | | (SNOMED | | | | FORKLIFT PICKER-C | | | [place] | | | CT) | | | | | | | MD | +---------+---------+---------+---------+---------+---------+---------+---------+---------+ | NEW | [id number] | | Resolve | | Florecita | | Procedu | | | PATIENT | 03 | /24 | d | /24 | Suhr | | re | | | | (SNOMED | | | | FORKLIFT PICKER-C | | carried | | | CONSULT | CT) | | | | | | out on | | | ATION | | | | | | | | | | | | | | | | | subject | | +---------+---------+---------+---------+---------+---------+---------+---------+---------+ | AVASCUL | [id number] | | Active | | Prabhakar | [...] femur | | +---------+---------+---------+---------+---------+---------+---------+---------+---------+ | URI | [id number] | | Inactiv | | Loraine | [...] on | | +---------+---------+---------+---------+---------+---------+---------+---------+---------+ | HYPERTE | [id number] | | Active | | Rudy | | Hyperte | | | NSION | 3 | /24 | | /24 | Monteir | | nsive | | | | (SNOMED | | | | o MD | | disorde | | | | CT) | | | | | | r | | +---------+---------+---------+---------+---------+---------+---------+---------+---------+ | ELEVATE | [id number] | | Active | | Rudy | | Hypergl | | | D BLOOD | 7 | /24 | | /24 | Monteir | | ycemia | | | SUGAR | (SNOMED | | | | o MD | | | | | | CT) | | | | | | | | +---------+---------+---------+---------+---------+---------+---------+---------+---------+ | NEW | [id number] | | Removed | | Rudy | [...] subject | | +---------+---------+---------+---------+---------+---------+---------+---------+---------+ | SCREENI | 7593875 | | Resolve | | Rudy | [...] ng | | +---------+---------+---------+---------+---------+---------+---------+---------+---------+ | SCREENI | 3539136 | | Resolve | | Rudy | [...] ng | | +---------+---------+---------+---------+---------+---------+---------+---------+---------+ | NICOTIN | 1338989 | | Active | | Prabhakar | | Nicotin | | | E | 8 | | | | | | e | | | ADDICTI | (SNOMED | | | | VanMarinero | | depende | | | ON | CT) | | | | oy MD | | nce | | +---------+---------+---------+---------+---------+---------+---------+---------+---------+ | ASEPTIC | [id number] | | Inactiv | | Ann | [...] hip | | +---------+---------+---------+---------+---------+---------+---------+---------+---------+ | URI | [id number] | | Inactiv | | Phan | | Upper | | | | 9 | / | e | /19 | Middlek | | respira | | | | (SNOMED | | | | auff | | tory | | | | CT) | | | | FORKLIFT PICKER | | infecti | | | | | | | | | | on | | +---------+---------+---------+---------+---------+---------+---------+---------+---------+ | SORE | 0108552 | | Inactiv | | Phan | | Pain in | | | THROAT | 03 | / | e | / | Middlek | | throat | | | | (SNOMED | | | | auff | | | | | | CT) | | | | FORKLIFT PICKER | | | | +---------+---------+---------+---------+---------+---------+---------+---------+---------+ | OTHER | 2671565 | | Active | | Prabhakar | [...] | | | +---------+---------+---------+---------+---------+---------+---------+---------+---------+ | OPIOID | [id number] | | Active | | Phan | | Nondepe | | | ABUSE, | 05 | /28 | | / | Middlek | | ndent | | | CONTINU | (SNOMED | | | | auff | | opioid | | | OUS | CT) | | | | FORKLIFT PICKER | | abuse, | | | | | | | | | | continu | | | | | | | | | | ous | | +---------+---------+---------+---------+---------+---------+---------+---------+---------+ | HIP | [id number] | | Active | | Phan | | Hip | | | PAIN, | 2 | / | | / | Middlek | | pain | | | LEFT | (SNOMED | | | | auff | | | | | | CT) | | | | FORKLIFT PICKER | | | | +---------+---------+---------+---------+---------+---------+---------+---------+---------+ | UPPER | [id number] | | Inactiv | | Malachi Levin [...] on | | +---------+---------+---------+---------+---------+---------+---------+---------+---------+ | BRACHIA | [id number] | | Inactiv | | Malachi Levin [...] | | | +---------+---------+---------+---------+---------+---------+---------+---------+---------+ | RIB | [id number] | | Inactiv | | Malachi Levin | | Rib | | | PAIN | | | | Dye | | pain | | | | (SNOMED | | | | ACNP | | | | | | CT) | | | | | | | | +---------+---------+---------+---------+---------+---------+---------+---------+---------+ | LESION | 9545689 | | Active | | Clementina | [...] | | | +---------+---------+---------+---------+---------+---------+---------+---------+---------+ | ANAL | 0485415 | | Removed | | Karissa | | Anal | per Dr. | | FISSURE | 6 | / | | / | Sea | | fissure | Alexander | | | (SNOMED | | | | RN | | | [place] | | | CT) | | | | | | | MD | +---------+---------+---------+---------+---------+---------+---------+---------+---------+ | RECTAL | 1271118 | | Removed | | Rodrigo | [...] | 05/11/14 | +---------+---------+---------+---------+---------+---------+---------+---------+---------+ | SCREENI | 8843260 | | Removed | | Juan | [...] ng | | +---------+---------+---------+---------+---------+---------+---------+---------+---------+ | SCREENI | 6061882 | | Removed | | Andriy | | Alcohol | | | NG FOR | | / | | | Padovic | | | | | ALCOHOL | (SNOMED | | | | h FORKLIFT PICKER | | consump | | | ISM | CT) | | | | | | tion | | | | | | | | | | screeni | | | | | | | | | | ng | | +---------+---------+---------+---------+---------+---------+---------+---------+---------+ | FOOT | [id number] | | Removed | | Skye | | Foot | | | PAIN, | 7 | /15 | | /15 | Epifanio | | pain | | | RIGHT | (SNOMED | | | | FORKLIFT PICKER | | | | | | [...] | 1 | | | BISACODYL | [id number] | Florecita | | 10 MG | suppositor | | | | 0 | Suhr FORKLIFT PICKER-C | | SUPP | y QHS PRN | | | | | | | | constipati | | | | | | | | on | | | | | | + + + + + + + + | OXYCODONE | 3-4 per | | | OXYCODONE | 1044087156 | Rudy | | HCL 10 MG | day | | | HCL | 8 | Yaquelin | | TABS | | | | | | MD | + + + + + + + + | MIRALAX | 17grams | | | POLYETHYLE | 1133800189 | Melvina | | POWD | mixed [...] Take three | | | BENZONATAT | 4986435064 | Karma | | PERLES 100 | [...] | three | | | IBUPROFEN | 9274039625 | Prabhakar | | 600 MG | times per | | | | 6 | VanAnrooy | | TABS | day | | | | | MD | + + + + + + + + | AMBERDERM | Apply prn | | | BALSAM | 4924353475 | Nayan | | 650-72.5 | to lower | | | JOSEPH-GEOVANY | 3 | [place] | | MG/0.82ML | lip for | [...] | | | RSBG | | Mariselahr FORKLIFT PICKER-C | + + + + + + + + | CEPACOL | 1 lozenge | | | BENZOCAINE | 6230860161 | Karma | | SORE | every [...] | | | PAIN | | Cyndi [place] | | AGREEMENT | 1.2.15 | | | AGREEMENT | | NCMA | | D RATHER | | | | D RATHER | | | + + + + + + + + | UDS | 1.2.15 | | | UDS | | Cyndi [place] | | | consistent | | | | | NCMA | + + + + + + + + | TYLENOL 8 | 1 tablet | | | ACETAMINOP | 2979218457 | Nayan | | HOUR | every 4 | | | HEN | 1 | [place] | | ARTHRITIS | hours as | [...] cap BID | | | DOCUSATE | [id number] | Florecita | | MG CAPS | | | | SODIUM | 0 | Suhr FORKLIFT PICKER-C | + + + + + [...] tab BID | | | CYCLOBENZA | [id number] | Florecita | | YESSY HCL | PRN muscle | | | YESSY HCL | 0 | Suhr FORKLIFT PICKER-C | | 10 MG TABS | [...] TAB Q6 | | | TRAMADOL | 9829809155 | Rudy | | HCL 50 MG | HRS PRN | | | HCL | 0 | Yaquelin | | TABS | PAIN | | | | | MD | + + + + + + + + | NORCO | 1 every 8 | | | HYDROCODON | 2788222925 | Rudy | | 5-325 MG | hours as | | | E-ACETAMIN | 1 | Yaquelin | | TABS | needed | | | OPHEN | | MD | + + + + + + + + | CLINDAMYCI | 1 tab by | | | CLINDAMYCI | 9933439610 | Tommy | | N HCL 150 [...] tab po | | | HYDROCODON | 2148810776 | Karma | | 5-325 MG | [...] Inhale 2 | | | ALBUTEROL | 1099937564 | Phan | | 108 (90 | puffs | | | SULFATE | 2 | Middlekauf | | Base) | every 4 | | | | | f FORKLIFT PICKER | | MCG/ACT | hours as [...] tab q | | | OXYCODONE- | 3920745423 | Florecita | | 7.5-325 MG | 4 hrs for | | | ACETAMINOP | 0 | Suhr FORKLIFT PICKER-C | | TABS | pain, hold [...] po bid | | | HYDROCODON | 9750162324 | Cyndi Crowley | | E-ACETAMIN | [...] 4-6 per | | | HYDROCODON | 4258097236 | Karma | | 5-325 MG | day | | | E-ACETAMIN | 1 | Berenice CONRAD | | TABS | | | | OPHEN | | | + + + + + + + + | OXYCODONE | 3-4 per | | | OXYCODONE | 1090475744 | Karma | | HCL 10 MG | day | | | HCL | 8 | Berenice CONRAD | | TABS | | | | | | | + + + + + + + + | OXYCODONE | 1 tab q 4 | | | OXYCODONE | 2876226571 | Karma | | HCL 15 MG | hrs PRN | | | HCL | 1 | Berenice CONRAD | | TABS | pain | | | | | | + + + + + + + + | HYDROCODON | Take 1 tab | | | HYDROCODON | 8351012722 | Melvina | | E-ACETAMIN | po [...] 1 tab | | | TRAMADOL | 6711678597 | Karma | | HCL 50 MG [...] 1 tab | | | GUAIFENESI | 8823876378 | Karma | | N 400 MG [...] 2tabs po | | | VARENICLIN | 6857189678 | Rudy | | MG TABS | qd | | | E TARTRATE | 6 | Yaquelin | | | | | | | | MD | + + + + + + + + | OXYCODONE- | Take 1 tab | | | OXYCODONE- | 3312509337 | Phan | | ACETAMINOP | by mouth | | | ACETAMINOP | 6 | Middlekauf | | HEN 5-325 | three | | | HEN | | f FORKLIFT PICKER | | MG TABS | times [...] 1 tab | | | PSEUDOEPHE | 7834838400 | Phan | | DRINE HCL | by mouth | | | DRINE HCL | 0 | Middlekauf | | 30 MG TABS | four times | | | | | f FORKLIFT PICKER | | | per day | [...] Inhale 2 | | | ALBUTEROL | 3963363454 | Malachi K | | 108 (90 [...] Take 1 | | | DOXYCYCLIN | 5742455541 | Malachi Levin | | E HYCLATE [...] 4-6 per | | | HYDROCODON | 1557478275 | Prabhakar | | 5-325 MG | day | | | E-ACETAMIN | 1 | VanAnrooy | | TABS | | | | OPHEN | | MD | + + + + + + + + | MOBIC 7.5 | 1 tablet | | | MELOXICAM | 4864776586 | Phan | | MG TABS | by mouth | | | | 5 | Middlekauf | | | daily. | | | | | f FORKLIFT PICKER | | | Must last | | | | | | | | 30 days. | | | | | | + + + + + + + + | CLINDAMYCI | 1 tab by | | | CLINDAMYCI | 7967966405 | Malachi Levin | | N HCL [...] | prn | | | MAGNESIUM | 1492615287 | Melvina | | OF | constipati [...] By mouth | | | IBUPROFEN | 9114829430 | Andriy | | 200 MG | 3 times a | | | | 8 | Padovich | | TABS | day | | | | | FORKLIFT PICKER | + + + + + + + + | UDS | 1.2.15 | | | UDS | | Prabhakar | | | consistent | | | | | Uzma | | | | | | | | MD | + + + + + + + + | CHANTIX 1 | 1 tab two | | | VARENICLIN | 0686566736 | Karma | | MG TABS | times per | | | E TARTRATE | 6 | Berenice MA | | | day | | | | | | + + + + + + + + | HYDROCODON | Take 1 tab | | | HYDROCODON | 4958624876 | Karma | | E-ACETAMIN | po [...] 1 tab | | | WARFARIN | 0693083985 | Folrecita | | MG TABS | daily | | | SODIUM | 0 | Mackenzie GUPTAP-C | + + + + + + + + | IBUPROFEN | three | | | IBUPROFEN | 5850665823 | Rudy | | 600 MG | [...] | | | | | | | FORKLIFT PICKER | + + + + + + + + | ELAVIL 25 | Take 1 | | | AMITRIPTYL | 4184828262 | Rudy | | MG TABS | tab po QHS | | | INE HCL | 0 | Yaquelin | | | | | | | | MD | + + + + + + + + | TRAMADOL | 1-2 TAB | | | TRAMADOL | 5325379631 | Rudy | | HCL 50 MG | BID PRN | | | HCL | 0 | Yaquelin | | TABS | PAIN | | | | | MD | + + + + + + + + | LISINOPRIL | 1 tab one | | | LISINOPRIL | 1609360605 | Rudy | | 20 MG | time per | | | | 4 | Yaquelin | | TABS | day | | | | | MD | + + + + + + + + | CHANTIX 1 | take 1tab | | | VARENICLIN | 7478106529 | Rudy | | MG TABS | po daily | | | E TARTRATE | 6 | Yaquelin | | | | | | | | MD | + + + + + + + + | TRAMADOL | 1 TAB BID | | | TRAMADOL | 0105006260 | Rudy | | HCL 50 MG | PRN PAIN | | | HCL | 0 | Yaquelin | | TABS | | | | | | MD | + + + + + + + + | NORCO | 1tab by | | | HYDROCODON | 2219149521 | Rudy | | 7.5-325 MG | [...] TAB Q6 | | | TRAMADOL | 4211447916 | Prabhakar | | HCL 50 MG | HRS PRN | | | HCL | 0 | VanAnrooy | | TABS | PAIN | | | | | MD | + + + + + + + + | NORCO | 1tab po | | | HYDROCODON | 8167712803 | Rudy | | 7.5-325 MG | [...] tab po | | | HYDROCODON | 4997227362 | Rudy | | 5-325 MG | QD | | | E-ACETAMIN | 1 | Yaquelin | | TABS | | | | OPHEN | | MD | + + + + + + + + | TRAMADOL | take 1 tab | | | TRAMADOL | 0644421993 | Rudy | | HCL 50 MG | nightly | | | HCL | 0 | Yaquelin | | TABS | | | | | | MD | + + + + + + + + | NORCO | 1 every 8 | | | HYDROCODON | 5338955641 | Prabhakar | | 5-325 MG | hours as | | | E-ACETAMIN | 1 | VanAgathaoy | | TABS | needed | | | OPHEN | | MD | + + + + + + + + | OXYCODONE | 1 tab q 4 | | | OXYCODONE | 1349889873 | Florecita | | HCL 15 MG | hrs PRN | | | HCL | 1 | Suhr FORKLIFT PICKER-C | | TABS | pain | | | | | | + + + + + + + + | [facility] LYSINE | take 1 tab | | | LYSINE | 6437549915 | Rudy | | 1000 MG | [...] tab q | | | OXYCODONE- | 7367332003 | Florecita | | 7.5-325 MG | 4 hrs for | | | ACETAMINOP | 0 | Suhr FORKLIFT PICKER-C | | TABS | pain, hold | | | HEN | | | | | if | | | | | | | | somnolent | | | | | | | | or asleep. | | | | | | + + + + + + + + | PERCOCET | 1-2 tab q | | | OXYCODONE- | 1547694746 | Florecita | | 7.5-325 MG | 4 hrs PRN | | | ACETAMINOP | 0 | Suhr FORKLIFT PICKER-C | | TABS | pain, | | | HEN | | | | | dispense | | | | | | | | #84 | | | | | | + + + + + + + + | TESSALON | Take three | | | BENZONATAT | 7371895676 | Loraine | | RACHEL 100 | [...] 1tab po | | | VARENICLIN | 2133792066 | Rudy | | MG TABS | bid | | | E TARTRATE | 6 | Yaquelin | | | | | | | | MD | + + + + + + + + | HYDROCODON | Take 1 tab | | | HYDROCODON | 6005374482 | Rudy | | E-ACETAMIN | po [...] po qd | | | LISINOPRIL | 0984060250 | Rudy | | 20 MG | | | | | 1 | Yaquelin | | TABS | | | | | | MD | + + + + + + + + | TRAMADOL | 1 TAB Q6 | | | TRAMADOL | 1070683639 | Prabhakar | | HCL 50 MG | HRS PRN | | | HCL | 0 | VanAnrooy | | TABS | PAIN | | | | | MD | + + + + + + + + | CEPACOL | 1 lozenge | | | BENZOCAINE | 6291295140 | Phan | | SORE | every 2 | | | -MENTHOL | 0 | Middlekauf | | THROAT | hours as | | | | | f FORKLIFT PICKER | | 10-2.1 MG | needed for | | | | | | | LOZG | sore | | | | | | | | throat | | | | | | + + + + + + + + | GUAIFENESI | 1 tab | | | GUAIFENESI | 8348072202 | Phan | | N 400 MG | every 4 | | | N | 0 | Middlekauf | | TABS | hours as | | | | | f FORKLIFT PICKER | | | needed for | | | | | | | | | | | | | | | | cough/yaw | | | | | | | | estion | | | | | | + + + + + + + + | PSEUDOEPHE | Take 1 tab | | | PSEUDOEPHE | 1746171829 | Malachi Levin | | DRINE HCL [...] Take 3 | | | PREDNISONE | 4360786768 | Malachi Levin | | 20 MG [...] Take 1 | | | GABAPENTIN | 2592286946 | Malachi Levin | | 300 MG [...] 1 tab | | | OXYCODONE- | 5350692522 | Malachi Levin | | ACETAMINOP | [...] 1 tab | | | CYCLOBENZA | 7438635326 | Malachi Levin | | YESSY HCL [...] po bid | | | HYDROCODON | 6249652008 | Tommy | | E-ACETAMIN | prn [...] 1 tablet | | | MELOXICAM | 4268382041 | Jovany | | MG TABS | [...] | | | | | | | FORKLIFT PICKER | + + + + + [...] | | | | | | | FORKLIFT PICKER | +---------+ + + + + + | CODEINE | Itch | | Critical | No Longer | Skye | | | | | | Active | Epifanio FORKLIFT PICKER | +---------+ + + + + + | SULFA | Break out in | | Critical | | Skye | | | hives | | | | Epifanio FORKLIFT PICKER | +---------+ + + + + [...] + + +--------+ +---+---+ + | | NM | 156 | ms | | | NM | | | INTERVAL | | | [...] +---+ + + + | Office Visit: [facility] [employer] 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- lft hip pain | + [...] | | | Dietary | | | POLITICAL [employer]ENCE [employer] 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 | | | | | management | [...] +--------+ +---+---+---+ + | | ESM_RR | [id number] | | | B | e-scripts | [...] | | | | | | | [id number]` | | | | | | | | [id number] | | | | | | | [...] Mariah [place], [address] | | | [facility] [address], | | | | [place], [address], | | | | | + + + + | Referral | | Podiatry Consult | | | | GUILLERMO Haley, | | | | [address], | | | | [place], [address] | | | | | + + [...] | + + + + + | CPT-33469 | Urine Toxicology | | | | | Screen, Multiple | | | | | Drug Classes by | | | | | Direct Optical | | | | | Observation | | | + + + + + | CPT-34439 | XR Hip W/Pelvis | | | | | 2-3V-Lt | | | + + + + + | CPT-85992 | Theraputic | | | | | Injection (IM/SubQ) | | | + + + + + | CPT-J1885 | Toradol 15mg | | | + + + + + | CPT-65431 | Urine Toxicology | | | | | Screen, Multiple | | | | | Drug Classes by | | | | | Direct Optical | | | | | Observation | | | + + + + + | CPT-99780 | Theraputic | | | | | Injection (IM/SubQ) | | | + + + + + | CPT-J1885 | Toradol 15mg | | | + + + + + | CPT-37957 | Theraputic | | | | | Injection (IM/SubQ) | | | + + + + + | CPT-J1885 | Toradol 15mg | | | + + + + + | CPT-83345 | Theraputic | | | | | Injection (IM/SubQ) | | | + + + + + | CPT-J1885 | Toradol 15mg | | | + + + + + | CPT-82744 | XR Hip W/Pelvis | | | | | 2-3V-Lt | | | + + + + + | CBC AUTO 81534 | CBC w/ Auto Diff | | | + + + + + | CPT-82982 | XR Hip W/Pelvis | | | | | 2-3V-Lt | | | + + + + + | CBC AUTO 82203 | CBC w/ Auto Diff | | | + + + + + | M NOS MRSA 20480 | Nose Culture, MRSA | | | | | Only | | | + + + + + | CHEM 8 17790 | Basic Metabolic | | | | | Panel | | | + + + + + | CPT-21640 | Health Risk | | | | | Assessment | | | + + + + + | GLYCO HGB 62254 | Glyco Hemoglobin, | | | | | A1C | | | + + + + + | CPT-41652 | Health Risk | | | | | Assessment | | | + + + + + | CPT-90677 | Health Risk | | | | | Assessment | | | + + + + + | U NICOTINE 27026 | Cotinine | | | + + + + + | 36540 | MR Meenaskhi Banuelos-Lt | | | + + + + + | CPT-79004 | XR Hip W/Pelvis | | | | | 2-3V-Lt | | | + + + + + | CPT- 72536 | Administration | | | | | (75265) | | | + + + + + | CPT-J1885 | Toradol Inj. 60mg | | | + + + + + | CPT-19000 | Urine Tox, multiple | | | | | drug classes | | | + + + + + | 69793 | XR Foot 2V-Rt | | | + + + + + | [id number] | [Recorded for CQM] | | | | | Pedal pulse taking | | | | | (procedure) | | | + + + + + | [id number] | [Recorded for CQM] | | | | | Documentation of | | | | | current medications | | | | | (procedure) | | | + + + + + | [id number] | [Recorded for CQM] | | | | | Health-related | | | | | behavior | | | + + + + + | [id number] | [facility] Generic Patient | | | | | Encounter Service | | | | | (from patch) | | | + + + + + | [id number] | [Recorded for CQM] | | | | | Pedal pulse taking | | | | | (procedure) | | | + + + + + | [id number] | [Recorded for CQM] | | | | | Documentation of | | | | | current medications | | | | | (procedure) | | | + + + + + | [id number] | [Recorded for CQM] | | | | | Drug or Medication | | | + + + + + | [id number] | [Recorded for CQM] | | | | | Details of drug | | | | | misuse behavior | | | + + + + + | [id number] | [Recorded for CQM] | | | | | Never smoker | | | + + + + + | [id number] | [Recorded for CQM] | | | | | Never smoked | | | | | tobacco (finding) | | | + + + + + | 190762973 | [Recorded for CQM] | | | | | Tobacco use and | | | | | exposure | | | + + + + + | 757108787 | [Recorded for CQM] | | | | | Alcohol intake | | | + + + + + | 996799294 | [Recorded for CQM] | | | | | Allergy | | | + + + + + | [phone] | [Recorded for CQM] | | | | | Alcohol intake | | | + + + + + | [phone] | [Recorded for CQM] | | | | | Tobacco use and | | | | | exposure | | | + + + + + | [phone] | [Recorded for CQM] | | | | | Details of drug | | | | | misuse behavior | | | + + + + + | [phone] | [Recorded for CQM] | | | | | Drug or Medication | | | + + + + + | [id number] | [Recorded for CQM] | | | | | Current Light | | | | | tobacco smoker | | | + + + + + | [id number] | [Recorded for CQM] | | | | | Light tobacco | | | | | smoker (finding) | | | + + + + + | [phone] | [Recorded for CQM] | | | | | Documentation of | | | | | current medications | | | | | (procedure) | | | + + + + + | [phone] | [Recorded for CQM] | | | | | Pedal pulse taking | | | | | (procedure) | | | + + + + + | [phone] | XR Foot 2V-Rt | | | [...]
--- OUTSIDE RECORDS SUMMARY | ~2019-09-25 | XMS | Clinical Summary ---
Demographics + + + | Address | General Delivery | | | [place] [address] | + + + | Home Phone | ;ext=1 | + + + | Preferred Language | Unknown | + + + | Marital Status | U | + + + | Orthodox Affiliation | Unknown | + + + | Race | White | + + + | Ethnic Group | Not or | + + + Author + + + | Author | [facility] | + + + | Organization | [facility] | + + + | Address | [address] | | | [place] [address] | + + + | Phone | Unavailable | + + + Care Team Providers + +------+ + | Care Pharmacy Picking Technician Name | Role | Phone | [...] tion | | +---------+---------+---------+---------+---------+---------+---------+---------+---------+ | ADJUSTM | [id number] | | Active | | Mariah | [...] mood | | +---------+---------+---------+---------+---------+---------+---------+---------+---------+ | CHRONIC | [id number] | | Active | | Faina | | Chronic | | | PAIN | | | | | [place] | | pain | | | SYNDROM | (SNOMED | | | | MEMBER SERVICES COORDINATOR | | syndrom | | | E | CT) | | | | | | e | | +---------+---------+---------+---------+---------+---------+---------+---------+---------+ | PAIN | [id number] | | Active | | Faina | | Psychal | | | DISORDE | | | | / | [place] | | urban | | | R | (SNOMED | | | | MEMBER SERVICES COORDINATOR | | | | | ASSOCIA | [...] | | | +---------+---------+---------+---------+---------+---------+---------+---------+---------+ | ANEMIA | [id number] | | Active | | Florecita | | Anemia | | | | 00 | | | | Suhr | | | | | | (SNOMED | | | | CAR EXAMINER-C | | | | | | CT) | | | | | | | | +---------+---------+---------+---------+---------+---------+---------+---------+---------+ | APHTHOU | [id number] | | Active | | Luis | | Aphthou | | | S ULCER | 05 | | | | pgae Pimentel | | s ulcer | | | OF | (SNOMED | | | | MA | | of | | | MOUTH | CT) | | | | | | mouth | | +---------+---------+---------+---------+---------+---------+---------+---------+---------+ | DIFFICU | [id number] | | Active | | Nayan | | Walking | | | LTY IN | 08 | /20 | | / | Hersche | | | | | WALKING | (SNOMED | | | | r DO | | disabil | | | | CT) | | | | | | ity | | +---------+---------+---------+---------+---------+---------+---------+---------+---------+ | TOTAL | [id number] | | Active | | Florecita | | Total | | | HIP | 7 | | | | Suhr | | replace | | | ARTHROP | (SNOMED | | | | CAR EXAMINER-C | | ment of | | | [...] , | -CM) | | | | CAR EXAMINER-C | | osteoar | | | LOCALIZ [...] | | | +---------+---------+---------+---------+---------+---------+---------+---------+---------+ | FOOT | [id number] | | Resolve | | Florecita | | Foot | | | PAIN, | 7 | /15 | d | /15 | Suhr | | pain | | | RIGHT | (SNOMED | | | | CAR EXAMINER-C | | | | | | CT) | | | | | | | | +---------+---------+---------+---------+---------+---------+---------+---------+---------+ | RECTAL | [id number] | | Resolve | | Florecita | | Rectal | per | | BLEEDIN | 2 | /15 | d | /15 | Suhr | | hemorrh | Sacred | | G | (SNOMED | | | | CAR EXAMINER-C | | age | Heart | | | CT) | | | | | | | [facility] | | | | | | | | | | nd ER | | | | | | | | | | visit | | | | | | | | | | 05/11/14 | +---------+---------+---------+---------+---------+---------+---------+---------+---------+ | ANAL | [id number] | | Resolve | | Florecita | | Anal | per . | | FISSURE | 6 | | d | | Suhr | | fissure | Alexander | | | (SNOMED | | | | CAR EXAMINER-C | | | [place] | | | CT) | | | | | | | MD | +---------+---------+---------+---------+---------+---------+---------+---------+---------+ | NEW | [id number] | | Resolve | | Florecita | | Procedu | | | PATIENT | 03 | | d | 24 | Suhr | | re | | | | (SNOMED | | | | CAR EXAMINER-C | | carried | | | CONSULT | CT) | | | | | | out on | | | ATION | | | | | | | | | | | | | | | | | subject | | +---------+---------+---------+---------+---------+---------+---------+---------+---------+ | AVASCUL | [id number] | | Active | | Prabhakar | [...] femur | | +---------+---------+---------+---------+---------+---------+---------+---------+---------+ | URI | [id number] | | Inactiv | | Loraine | [...] on | | +---------+---------+---------+---------+---------+---------+---------+---------+---------+ | HYPERTE | [id number] | | Active | | Rudy | | Hyperte | | | NSION | | | | | Monteir | | nsive | | | | (SNOMED | | | | o MD | | disorde | | | | CT) | | | | | | r | | +---------+---------+---------+---------+---------+---------+---------+---------+---------+ | ELEVATE | [id number] | | Active | | Rudy | | Hypergl | | | D BLOOD | | | | | Monte[place] | | ycemia | | | SUGAR | (SNOMED | | | | o MD | | | | | | CT) | | | | | | | | +---------+---------+---------+---------+---------+---------+---------+---------+---------+ | NEW | [id number] | | Removed | | Rudy | [...] subject | | +---------+---------+---------+---------+---------+---------+---------+---------+---------+ | SCREENI | 7047083 | | Resolve | | Rudy | [...] ng | | +---------+---------+---------+---------+---------+---------+---------+---------+---------+ | SCREENI | 7690481 | | Resolve | | Rudy | [...] ng | | +---------+---------+---------+---------+---------+---------+---------+---------+---------+ | NICOTIN | 9135983 | | Active | | Prabhakar | | Nicotin | | | E | 8 | /08 | | /08 | | | e | | | ADDICTI | (SNOMED | | | | VanAnro | | depende | | | ON | CT) | | | | oy MD | | nce | | +---------+---------+---------+---------+---------+---------+---------+---------+---------+ | ASEPTIC | [id number] | | Inactiv | | Ann | [...] hip | | +---------+---------+---------+---------+---------+---------+---------+---------+---------+ | URI | 4242269 | | Inactiv | | Phan | | Upper | | | | 9 | | e | | Middlek | | respira | | | | (SNOMED | | | | auff | | tory | | | | CT) | | | | CAR EXAMINER | | infecti | | | | | | | | | | on | | +---------+---------+---------+---------+---------+---------+---------+---------+---------+ | SORE | 4917423 | | Inactiv | | Phan | | Pain in | | | THROAT | 03 | / | e | / | Middlek | | throat | | | | (SNOMED | | | | auff | | | | | | CT) | | | | CAR EXAMINER | | | | +---------+---------+---------+---------+---------+---------+---------+---------+---------+ | OTHER | 9841794 | | Active | | Prabhakar | [...] | | | +---------+---------+---------+---------+---------+---------+---------+---------+---------+ | OPIOID | 9128596 | | Active | | Phan | | Nondepe | | | ABUSE, | 05 | / | | | Middlek | | ndent | | | CONTINU | (SNOMED | | | | auff | | opioid | | | OUS | CT) | | | | CAR EXAMINER | | abuse, | | | | | | | | | | continu | | | | | | | | | | ous | | +---------+---------+---------+---------+---------+---------+---------+---------+---------+ | HIP | 5262937 | | Active | | Phan | | Hip | | | PAIN, | 2 | / | | | Middlek | | pain | | | LEFT | (SNOMED | | | | auff | | | | | | CT) | | | | CAR EXAMINER | | | | +---------+---------+---------+---------+---------+---------+---------+---------+---------+ | UPPER | 4733430 | | Inactiv | | Malachi Levin [...] on | | +---------+---------+---------+---------+---------+---------+---------+---------+---------+ | BRACHIA | [id number] | | Inactiv | | Malachi Levin [...] | | | +---------+---------+---------+---------+---------+---------+---------+---------+---------+ | RIB | 6969740 | | Inactiv | | Malachi K | | Rib | | | PAIN | | | e | | Dye | | pain | | | | (SNOMED | | | | ACNP | | | | | | CT) | | | | | | | | +---------+---------+---------+---------+---------+---------+---------+---------+---------+ | LESION | 8542804 | | Active | | Clementina | [...] | | | +---------+---------+---------+---------+---------+---------+---------+---------+---------+ | ANAL | 2607026 | | Removed | | Karissa | | Anal | per | | FISSURE | 6 | | | / | Sea | | fissure | Alexander | | | (SNOMED | | | | RN | | | [place] | | | CT) | | | | | | | MD | +---------+---------+---------+---------+---------+---------+---------+---------+---------+ | RECTAL | 3877965 | | Removed | | Rodrigo | [...] | 05/11/14 | +---------+---------+---------+---------+---------+---------+---------+---------+---------+ | SCREENI | 2435668 | | Removed | | Juan | [...] ng | | +---------+---------+---------+---------+---------+---------+---------+---------+---------+ | SCREENI | 0175034 | | Removed | | Andriy | | Alcohol | | | NG FOR | 01 | / | | / | Padovic | | | | | ALCOHOL | (SNOMED | | | | h CAR EXAMINER | | consump | | | ISM | CT) | | | | | | tion | | | | | | | | | | screeni | | | | | | | | | | ng | | +---------+---------+---------+---------+---------+---------+---------+---------+---------+ | FOOT | 8626351 | | Removed | | Skye | | Foot | | | PAIN, | 7 | /15 | | /15 | Epifanio | | pain | | | RIGHT | (SNOMED | | | | CAR EXAMINER | | | | | | CT) [...] | 1 | | | BISACODYL | [id number] | Florecita | | 10 MG | suppositor | | | | 0 | Mackenzie GPUTAP-C | | SUPP | y QHS PRN | | | | | | | | constipati | | | | | | | | on | | | | | | + + + + + + + + | OXYCODONE | 3-4 per | | | OXYCODONE | 2287353401 | Rudy | | HCL 10 MG | day | | | HCL | 8 | Yaquelin | | TABS | | | | | | MD | + + + + + + + + | MIRALAX | 17grams | | | POLYETHYLE | 7590645177 | Melvina | | POWD | mixed [...] Take three | | | BENZONATAT | 9357562480 | Karma | | PERLES 100 | [...] | three | | | IBUPROFEN | 0771796483 | Prabhakar | | 600 MG | times per | | | | 6 | VanAnrooy | | TABS | day | | | | | MD | + + + + + + + + | AMBERDERM | Apply prn | | | BALSAM | 9001679139 | Nayan | | 650-72.5 | to lower | | | JOSEPH-GEOVANY | 3 | Jackson | | MG/0.82ML | lip for | [...] | | | RSBG | | Mariselahr CAR EXAMINER-C | + + + + + + + + | CEPACOL | 1 lozenge | | | BENZOCAINE | 4823470885 | Karma | | SORE | every [...] 1 tablet | | | ACETAMINOP | 2682281391 | Nayan | | HOUR | every 4 | | | HEN | 1 | Jackson | | ARTHRITIS | hours as | [...] cap BID | | | DOCUSATE | [id number] | Florecita | | MG CAPS | | | | SODIUM | 0 | Suhr CAR EXAMINER-C | + + + + + + [...] tab BID | | | CYCLOBENZA | [id number] | Florecita | | YESSY HCL | PRN muscle | | | YESSY HCL | 0 | Suhr CAR EXAMINER-C | | 10 MG TABS | pain [...] TAB Q6 | | | TRAMADOL | 4076933166 | Rudy | | HCL 50 MG | HRS PRN | | | HCL | 0 | Yaquelin | | TABS | PAIN | | | | | MD | + + + + + + + + | NORCO | 1 every 8 | | | HYDROCODON | 9298763164 | Rudy | | 5-325 MG | hours as | | | E-ACETAMIN | 1 | Yaquelin | | TABS | needed | | | OPHEN | | MD | + + + + + + + + | CLINDAMYCI | 1 tab by | | | CLINDAMYCI | 0200814634 | Tommy | | N HCL 150 [...] tab po | | | HYDROCODON | 4611979033 | Karma | | 5-325 MG | QD | | | E-ACETAMIN | 1 | Berenice CONRAD | | TABS | | | | OPHEN | | | + + + + + + + + | COMPRESSIO | put on in | | | COMPRESSIO | | Melvina | | N HOSE | the | | | N HOSE | | Margartio MA | | MEN'S | morning | | | MEN'S | | | | | and take | | | | | | | | off at | | | | | | | | bedtime | | | | | | + + + + + + + + | PROAIR HFA | Inhale 2 | | | ALBUTEROL | [id number] | Phan | | 108 (90 | puffs | | | SULFATE | 2 | Middlekauf | | Base) | every 4 | | | | | f CAR EXAMINER | | MCG/ACT | hours as | [...] tab q | | | OXYCODONE- | 2986917069 | Florecita | | 7.5-325 MG | 4 hrs for | | | ACETAMINOP | 0 | Suhr CAR EXAMINER-C | | TABS | pain, hold | [...] po bid | | | HYDROCODON | 9396175361 | Cyndi [place] | | E-ACETAMIN | [...] 4-6 per | | | HYDROCODON | 1206043204 | Karma | | 5-325 MG | day | | | E-ACETAMIN | 1 | Berenice CONRAD | | TABS | | | | OPHEN | | | + + + + + + + + | OXYCODONE | 3-4 per | | | OXYCODONE | 6028575571 | Karma | | HCL 10 MG | day | | | HCL | 8 | Berenice CONRAD | | TABS | | | | | | | + + + + + + + + | OXYCODONE | 1 tab q 4 | | | OXYCODONE | 8983632389 | Karma | | HCL 15 MG | hrs PRN | | | HCL | 1 | Berenice CONRAD | | TABS | pain | | | | | | + + + + + + + + | HYDROCODON | Take 1 tab | | | HYDROCODON | 5089313874 | Melvina | | E-ACETAMIN | po [...] 1 tab | | | TRAMADOL | 0917212063 | Karma | | HCL 50 MG [...] 1 tab | | | GUAIFENESI | 0960406618 | Karma | | N 400 MG [...] 2tabs po | | | VARENICLIN | 2129383380 | Rudy | | MG TABS | qd | | | E TARTRATE | 6 | Yaquelin | | | | | | | | MD | + + + + + + + + | OXYCODONE- | Take 1 tab | | | OXYCODONE- | 4997744025 | Phan | | ACETAMINOP | by mouth | | | ACETAMINOP | 6 | Abeluf | | HEN 5-325 | three | | | HEN | | f CAR EXAMINER | | MG TABS | times per [...] 1 tab | | | PSEUDOEPHE | 4898355345 | Phan | | ARVIND HCL | by mouth | | | ARVIND HCL | 0 | Marianakauf | | 30 MG TABS | four times | | | | | f CAR EXAMINER | | | per day | | [...] Inhale 2 | | | ALBUTEROL | 6865013249 | Malachi Levin | | 108 (90 [...] Take 1 | | | DOXYCYCLIN | 6143662089 | Malachi Levin | | E HYCLATE [...] 4-6 per | | | HYDROCODON | 9210265776 | Prabhakar | | 5-325 MG | day | | | E-ACETAMIN | 1 | VanAnrooy | | TABS | | | | OPHEN | | MD | + + + + + + + + | MOBIC 7.5 | 1 tablet | | | MELOXICAM | 2885556863 | Phan | | MG TABS | by mouth | | | | 5 | Middlekauf | | | daily. | | | | | f CAR EXAMINER | | | Must last | | | | | | | | 30 days. | | | | | | + + + + + + + + | CLINDAMYCI | 1 tab by | | | CLINDAMYCI | 5772392644 | Malachi Levin | | N HCL [...] | prn | | | MAGNESIUM | 3569186718 | Melvina | | OF | constipati [...] By mouth | | | IBUPROFEN | 3748809049 | Andriy | | 200 MG | 3 times a | | | | 8 | Padovich | | TABS | day | | | | | CAR EXAMINER | + + + + + + + + | UDS | 1.2.15 | | | UDDameon | | Prabhakar | | | consistent | | | | | Uzma | | | | | | | | MD | + + + + + + + + | CHANTIX 1 | 1 tab two | | | VARENICLIN | 9774430174 | Karma | | MG TABS | times per | | | E TARTRATE | 6 | Berenice CONRAD | | | day | | | | | | + + + + + + + + | HYDROCODON | Take 1 tab | | | HYDROCODON | 6943383793 | Karma | | E-ACETAMIN | po [...] 1 tab | | | WARFARIN | 5075136310 | Florecita | | MG TABS | daily | | | SODIUM | 0 | Mariselahr CAR EXAMINER-C | + + + + + + + + | IBUPROFEN | three | | | IBUPROFEN | 2814301588 | Rudy | | 600 MG | [...] | | | | | | | CAR EXAMINER | + + + + + + + + | ELAVIL 25 | Take 1 | | | AMITRIPTYL | 8414243363 | Rudy | | MG TABS | tab po QHS | | | INE HCL | 0 | Yaquelin | | | | | | | | MD | + + + + + + + + | TRAMADOL | 1-2 TAB | | | TRAMADOL | 8484888933 | Rudy | | HCL 50 MG | BID PRN | | | HCL | 0 | Yaquelin | | TABS | PAIN | | | | | MD | + + + + + + + + | LISINOPRIL | 1 tab one | | | LISINOPRIL | 7363859675 | Rudy | | 20 MG | time per | | | | 4 | Yaquelin | | TABS | day | | | | | MD | + + + + + + + + | CHANTIX 1 | take 1tab | | | VARENICLIN | 0224704466 | Rudy | | MG TABS | po daily | | | E TARTRATE | 6 | Yaquelin | | | | | | | | MD | + + + + + + + + | TRAMADOL | 1 TAB BID | | | TRAMADOL | 7969316555 | Rudy | | HCL 50 MG | PRN PAIN | | | HCL | 0 | Yaquelin | | TABS | | | | | | MD | + + + + + + + + | NORCO | 1tab by | | | HYDROCODON | 3506597585 | Rudy | | 7.5-325 MG | [...] TAB Q6 | | | TRAMADOL | 8974754623 | Prabhakar | | HCL 50 MG | HRS PRN | | | HCL | 0 | VanAnrooy | | TABS | PAIN | | | | | MD | + + + + + + + + | NORCO | 1tab po | | | HYDROCODON | 0710832503 | Rudy | | 7.5-325 MG | [...] tab po | | | HYDROCODON | 1437376500 | Rudy | | 5-325 MG | QD | | | E-ACETAMIN | 1 | Yaquelin | | TABS | | | | OPHEN | | MD | + + + + + + + + | TRAMADOL | take 1 tab | | | TRAMADOL | 0036112530 | Rudy | | HCL 50 MG | nightly | | | HCL | 0 | Yaquelin | | TABS | | | | | | MD | + + + + + + + + | NORCO | 1 every 8 | | | HYDROCODON | 3802104300 | Prabhakar | | 5-325 MG | hours as | | | E-ACETAMIN | 1 | VanAnrooy | | TABS | needed | | | OPHEN | | MD | + + + + + + + + | OXYCODONE | 1 tab q 4 | | | OXYCODONE | 6419674937 | Florecita | | HCL 15 MG | hrs PRN | | | HCL | 1 | Suhr CAR EXAMINER-C | | TABS | pain | | | | | | + + + + + + + + | [facility] LYSINE | take 1 tab | | | LYSINE | 6471725855 | Rudy | | 1000 MG | [...] tab q | | | OXYCODONE- | 5665229596 | Florecita | | 7.5-325 MG | 4 hrs for | | | ACETAMINOP | 0 | Suhr CAR EXAMINER-C | | TABS | pain, hold | | | HEN | | | | | if | | | | | | | | somnolent | | | | | | | | or asleep. | | | | | | + + + + + + + + | PERCOCET | 1-2 tab q | | | OXYCODONE- | 8763699938 | Florecita | | 7.5-325 MG | 4 hrs PRN | | | ACETAMINOP | 0 | Suhr CAR EXAMINER-C | | TABS | pain, | | | HEN | | | | | dispense | | | | | | | | #84 | | | | | | + + + + + + + + | TESSALON | Take three | | | BENZONATAT | 2317108900 | Loraine | | PERLLOUISA 100 | [...] 1tab po | | | VARENICLIN | 8002241799 | Rudy | | MG TABS | bid | | | E TARTRATE | 6 | Yaquelin | | | | | | | | MD | + + + + + + + + | HYDROCODON | Take 1 tab | | | HYDROCODON | 5074584947 | Rudy | | E-ACETAMIN | po [...] po qd | | | LISINOPRIL | 2426219125 | Rudy | | 20 MG | | | | | 1 | Yaquelin | | TABS | | | | | | MD | + + + + + + + + | TRAMADOL | 1 TAB Q6 | | | TRAMADOL | 7874358070 | Prabhakar | | HCL 50 MG | HRS PRN | | | HCL | 0 | VanAnrooy | | TABS | PAIN | | | | | MD | + + + + + + + + | CEPACOL | 1 lozenge | | | BENZOCAINE | 0290722797 | Phan | | SORE | every 2 | | | -MENTHOL | 0 | Middlekauf | | THROAT | hours as | | | | | f CAR EXAMINER | | 10-2.1 MG | needed for | | | | | | | LOZG | sore | | | | | | | | throat | | | | | | + + + + + + + + | GUAIFENESI | 1 tab | | | GUAIFENESI | 7604312016 | Phan | | N 400 MG | every 4 | | | N | 0 | Middlekauf | | TABS | hours as | | | | | f CAR EXAMINER | | | needed for | | | | | | | | | | | | | | | | cough/yaw | | | | | | | | estion | | | | | | + + + + + + + + | PSEUDOEPHE | Take 1 tab | | | PSEUDOEPHE | 7143462609 | Malachi Levin | | ARVIND HCL [...] Take 3 | | | PREDNISONE | 4717995224 | Malachi Levin | | 20 MG [...] Take 1 | | | GABAPENTIN | 4384937055 | Malachi Levin | | 300 MG [...] 1 tab | | | OXYCODONE- | 0286502516 | Malachi Levin | | ACETAMINOP | [...] 1 tab | | | CYCLOBENZA | 5782927215 | Malachi Levin | | YESSY HCL [...] po bid | | | HYDROCODON | 2963877884 | Tommy | | E-ACETAMIN | prn [...] 1 tablet | | | MELOXICAM | 3719558786 | Jovany | | MG TABS | [...] | | | | | | | CAR EXAMINER | + + + + + + [...] | | | | | | | CAR EXAMINER | +---------+ + + + + + | CODEINE | Itch | | Critical | No Longer | Skye | | | | | | Active | Epifanio CAR EXAMINER | +---------+ + + + + + | SULFA | Break out in | | Critical | | Skye | | | hives | | | | Epifanio CAR EXAMINER | +---------+ + + + + + [...] + + +--------+ +---+---+ + | | GA | 156 | ms | | | [place] | | | INTERVAL | | | [...] +---+ + + + | 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- lft hip pain | + [...] | | | Dietary | | | DIET AID | | | | | management | [...] +--------+ +---+---+---+ + | | ESM_RR | [phone] | | | B | e-scripts | [...] | | | | | | | [id number]` | | | | | | | | [phone] | | | | | | | [...] Appointment | 11:00 AM | Mariah BEASLEY, Kristi ADKINS | | | | [facility] [address], | | | | [place], [address], | | | | | + + + + | Referral | | Podiatry Consult | | | | GUILLERMO Haley, | | | | [address], | | | | [place], [address] | | | | | + + [...] | + + + + + | CPT-14914 | Theraputic | | | | | Injection (IM/SubQ) | | | + + + + + | CPT-J1885 | Toradol 15mg | | | + + + + + | CPT-16761 | Urine Toxicology | | | | | Screen, Multiple | | | | | Drug Classes by | | | | | Direct Optical | | | | | Observation | | | + + + + + | CPT-91173 | 406[address] Individual | | | | | Therapy (53-112) | | | | | No POS Phone | | | + + + + + | CPT-26018 | XR Hip W/Pelvis | | | | | 2-3V-Lt | | | + + + + + | CPT-48804 | Theraputic | | | | | Injection (IM/SubQ) | | | + + + + + | CPT-J1885 | Toradol 15mg | | | + + + + + | CPT-35755 | Urine Toxicology | | | | | Screen, Multiple | | | | | Drug Classes by | | | | | Direct Optical | | | | | Observation | | | + + + + + | CPT-29913 | Theraputic | | | | | Injection (IM/SubQ) | | | + + + + + | CPT-J1885 | Toradol 15mg | | | + + + + + | CPT-66855 | Theraputic | | | | | Injection (IM/SubQ) | | | + + + + + | CPT-J1885 | Toradol 15mg | | | + + + + + | CPT-17303 | Theraputic | | | | | Injection (IM/SubQ) | | | + + + + + | CPT-J1885 | Toradol 15mg | | | + + + + + | CPT-53992 | XR Hip W/Pelvis | | | | | 2-3V-Lt | | | + + + + + | CBC AUTO 20649 | CBC w/ Auto Diff | | | + + + + + | CPT-32224 | XR Hip W/Pelvis | | | | | 2-3V-Lt | | | + + + + + | CBC AUTO 35065 | CBC w/ Auto Diff | | | + + + + + | M NOS MRSA 29603 | Nose Culture, MRSA | | | | | Only | | | + + + + + | CHEM 8 60948 | Basic Metabolic | | | | | Panel | | | + + + + + | CPT-44471 | Health Risk | | | | | Assessment | | | + + + + + | GLYCO HGB 36765 | Glyco Hemoglobin, | | | | | A1C | | | + + + + + | CPT-17245 | Health Risk | | | | | Assessment | | | + + + + + | CPT-39831 | Health Risk | | | | | Assessment | | | + + + + + | U NICOTINE 98652 | Cotinine | | | + + + + + | 93185 | MR Hip-WO Con-Lt | | | + + + + + | CPT-54495 | XR Hip W/Pelvis | | | | | 2-3V-Lt | | | + + + + + | CPT- 08054 | Administration | | | | | (84231) | | | + + + + + | CPT-J1885 | Toradol Inj. 60mg | | | + + + + + | CPT-78772 | Urine Tox, multiple | | | | | drug classes | | | + + + + + | 27724 | XR Foot 2V-Rt | | | + + + + + | [id number] | [Recorded for CQM] | | | | | Pedal pulse taking | | | | | (procedure) | | | + + + + + | [id number] | [Recorded for CQM] | | | | | Documentation of | | | | | current medications | | | | | (procedure) | | | + + + + + | [id number] | [Recorded for CQM] | | | | | Health-related | | | | | behavior | | | + + + + + | [id number] | [facility] Generic Patient | | | | | Encounter Service | | | | | (from patch) | | | + + + + + | [id number] | [Recorded for CQM] | | | | | Pedal pulse taking | | | | | (procedure) | | | + + + + + | [id number] | [Recorded for CQM] | | | | | Documentation of | | | | | current medications | | | | | (procedure) | | | + + + + + | [id number] | [Recorded for CQM] | | | | | Drug or Medication | | | + + + + + | [id number] | [Recorded for CQM] | | | | | Details of drug | | | | | misuse behavior | | | + + + + + | [id number] | [Recorded for CQM] | | | | | Never smoker | | | + + + + + | [phone] | [Recorded for CQM] | | | | | Never smoked | | | | | tobacco (finding) | | | + + + + + | [phone] | [Recorded for CQM] | | | | | Tobacco use and | | | | | exposure | | | + + + + + | [id number] | [Recorded for CQM] | | | | | Alcohol intake | | | + + + + + | [id number] | [Recorded for CQM] | | | | | Allergy | | | + + + + + | [phone] | [Recorded for CQM] | | | | | Alcohol intake | | | + + + + + | [id number] | [Recorded for CQM] | | | | | Tobacco use and | | | | | exposure | | | + + + + + | [id number] | [Recorded for CQM] | | | | | Details of drug | | | | | misuse behavior | | | + + + + + | [id number] | [Recorded for CQM] | | | | | Drug or Medication | | | + + + + + | [id number] | [Recorded for CQM] | | | | | Current Light | | | | | tobacco smoker | | | + + + + + | [id number] | [Recorded for CQM] | | | | | Light tobacco | | | | | smoker (finding) | | | + + + + + | [phone] | [Recorded for CQM] | | | | | Documentation of | | | | | current medications | | | | | (procedure) | | | + + + + + | [id number] | [Recorded for CQM] | | | | | Pedal pulse taking | | | | | (procedure) | | | + + + + + | [phone] | XR Foot 2V-Rt | | | [...]
--- OUTSIDE RECORDS SUMMARY | ~2019-09-25 | XMS | Clinical Summary ---
Demographics + + + | Address | [address] | | | [place] [address] | + + + | Home Phone | ;ext=[phone] | + + + | Preferred Language | Unknown | + + + | Marital Status | U | + + + | Sikhism Affiliation | Unknown | + + + | Race | White | + + + | Ethnic Group | Not or | + + + Author + + + | Author | [facility] | + + + | Organization | [facility] | + + + | Address | [address] | | | [place] [address] | + + + | Phone | Unavailable | + + + Care Team Providers + +------+ + | Care Manufacturing Systems Engineer Name | Role | Phone | [...] tion | | +---------+---------+---------+---------+---------+---------+---------+---------+---------+ | CONTROL | [id number] | | Active | | Marisel | | Drug | | | LED | 03 | /19 | | /19 | Rubio | | therapy | | | SUBSTAN | (SNOMED | | | | PAINTER TUMBLING BARREL | | | | | CE | CT) | | | | | | finding | | | AGREEME | | | | | | | | | | NT | | | | | | | | | | SIGNED | | | | | | | | | +---------+---------+---------+---------+---------+---------+---------+---------+---------+ | NASAL | [id number] | | Active | | Marisel | | Mass of | | | MASS | 09 | /19 | | /19 | Rubio | | nose | | | | (SNOMED | | | | PAINTER TUMBLING BARREL | | | | | | CT) | | | | | | | | +---------+---------+---------+---------+---------+---------+---------+---------+---------+ | COSTOCH | [id number] | | Active | | Marisel | | Costal | | | ONDRITI | 4 | / | | | Rubio | | chondri | | | S, LEFT | (SNOMED | | | | PAINTER TUMBLING BARREL | | tis | | | | CT) | | | | | | | | +---------+---------+---------+---------+---------+---------+---------+---------+---------+ | URI | [id number] | | Active | | Marisel | | Upper | | | | 9 | | | | Rubio | | respira | | | | (SNOMED | | | | PAINTER TUMBLING BARREL | | tory | | | | CT) | | | | | | infecti | | | | | | | | | | on | | +---------+---------+---------+---------+---------+---------+---------+---------+---------+ | RIB | [id number] | | Active | | Marisel | | Rib | | | PAIN ON | 02 | | | | Rubio | | pain | | | LEFT | (SNOMED | | | | PAINTER TUMBLING BARREL | | | | | SIDE | CT) | | | | | | | | +---------+---------+---------+---------+---------+---------+---------+---------+---------+ | POST- | [id number] | | Active | | Marisel | | Postvir | | | RAL | 04 | / | | / | Rubio | | al | | | COUGH | (SNOMED | | | | PAINTER TUMBLING BARREL | | cough | | | SYNDROM | CT) | | | | | | | | | E | | | | | | | | | +---------+---------+---------+---------+---------+---------+---------+---------+---------+ | EPISTAX | [id number] | | Active | | David | | Epistax | | | IS, | 1 | / | | | Chicker | | is | | | RECURRE | (SNOMED | | | | ing [place] | | | | | NT | CT) | | | | | | | | +---------+---------+---------+---------+---------+---------+---------+---------+---------+ | NASAL | [id number] | | Active | | David | | Nasal | | | POLYP | 5 | | | | Chicker | | polyp | | | | (SNOMED | | | | ing [place] | | | | | | CT) | | | | | | | | +---------+---------+---------+---------+---------+---------+---------+---------+---------+ | BRONCHI | [id number] | | Active | | David | | Bronchi | | | TIS | 4 | /19 | | /19 | Chicker | | tis | | | | (SNOMED | | | | ing [place] | | | | | | CT) | | | | | | | | +---------+---------+---------+---------+---------+---------+---------+---------+---------+ | ACUTE | [id number] | | Active | | David | | Common | | | NASOPHA | 6 | /19 | | /19 | Chicker | | cold | | | RYNGITI | (SNOMED | | | | ing [place] | | | | | S | CT) | | | | | | | | +---------+---------+---------+---------+---------+---------+---------+---------+---------+ | ADJUSTM | [id number] | | Active | | Mariah | [...] mood | | +---------+---------+---------+---------+---------+---------+---------+---------+---------+ | CHRONIC | [id number] | | Active | | Faina | | Chronic | | | PAIN | | / | | | [place] | | pain | | | SYNDROM | (SNOMED | | | | HEATING AND VENTILATING WORKER | | syndrom | | | E | CT) | | | | | | e | | +---------+---------+---------+---------+---------+---------+---------+---------+---------+ | PAIN | [id number] | | Active | | Faina | | Psychal | | | DISORDE | | / | | / | [place] | | urban | | | R | (SNOMED | | | | HEATING AND VENTILATING WORKER | | | | | ASSOCIA | [...] | | | +---------+---------+---------+---------+---------+---------+---------+---------+---------+ | ANEMIA | [id number] | | Active | | Florecita | | Anemia | | | | 00 | /27 | | /27 | Suhr | | | | | | (SNOMED | | | | PAINTER TUMBLING BARREL-C | | | | | | CT) | | | | | | | | +---------+---------+---------+---------+---------+---------+---------+---------+---------+ | APHTHOU | [id number] | | Active | | Charlen | | Aphthou | | | S ULCER | | / | | / | e Pimentel | | s ulcer | | | OF | (SNOMED | | | | CCMA | | of | | | MOUTH | CT) | | | | | | mouth | | +---------+---------+---------+---------+---------+---------+---------+---------+---------+ | DIFFICU | [id number] | | Active | | Bobby | | Walking | | | LTY IN | 08 | /20 | | /20 | Hersche | | | | | WALKING | (SNOMED | | | | r DO | | disabil | | | | CT) | | | | | | ity | | +---------+---------+---------+---------+---------+---------+---------+---------+---------+ | TOTAL | [id number] | | Active | | Florecita | | Total | | | HIP | 7 | /17 | | /17 | Suhr | | replace | | | ARTHROP | (SNOMED | | | | PAINTER TUMBLING BARREL-C | | ment of | | | [...] , | -CM) | | | | PAINTER TUMBLING BARREL-C | | osteoar | | | LOCALIZ [...] | | | +---------+---------+---------+---------+---------+---------+---------+---------+---------+ | FOOT | [id number] | | Resolve | | Florecita | | Foot | | | PAIN, | 7 | /15 | d | /15 | Suhr | | pain | | | RIGHT | (SNOMED | | | | PAINTER TUMBLING BARREL-C | | | | | | CT) | | | | | | | | +---------+---------+---------+---------+---------+---------+---------+---------+---------+ | RECTAL | [id number] | | Resolve | | Florecita | | Rectal | per | | BLEEDIN | 2 | / | d | /15 | Suhr | | hemorrh | Sacred | | G | (SNOMED | | | | PAINTER TUMBLING BARREL-C | | age | Heart | | | CT) | | | | | | | [facility] | | | | | | | | | | nd ER | | | | | | | | | | visit | | | | | | | | | | 05/11/14 | +---------+---------+---------+---------+---------+---------+---------+---------+---------+ | ANAL | [id number] | | Resolve | | Florecita | | Anal | per Dr. | | FISSURE | 6 | / | d | /30 | Suhr | | fissure | Alexander | | | (SNOMED | | | | PAINTER TUMBLING BARREL-C | | | [place] | | | CT) | | | | | | | MD | +---------+---------+---------+---------+---------+---------+---------+---------+---------+ | NEW | [id number] | | Resolve | | Florecita | | Procedu | | | PATIENT | 03 | /24 | d | /24 | Suhr | | re | | | | (SNOMED | | | | PAINTER TUMBLING BARREL-C | | carried | | | CONSULT | CT) | | | | | | out on | | | ATION | | | | | | | | | | | | | | | | | subject | | +---------+---------+---------+---------+---------+---------+---------+---------+---------+ | AVASCUL | [id number] | | Active | | Prabhakar | [...] femur | | +---------+---------+---------+---------+---------+---------+---------+---------+---------+ | URI | [id number] | | Inactiv | | Loraine | [...] on | | +---------+---------+---------+---------+---------+---------+---------+---------+---------+ | HYPERTE | 8375746 | | Active | | Rudy | | Hyperte | | | NSION | 3 | / | | | Monteir | | nsive | | | | (SNOMED | | | | o MD | | disorde | | | | CT) | | | | | | r | | +---------+---------+---------+---------+---------+---------+---------+---------+---------+ | ELEVATE | [id number] | | Active | | Rudy | | Hypergl | | | D BLOOD | 7 | / | | | Monteir | | ycemia | | | SUGAR | (SNOMED | | | | o MD | | | | | | CT) | | | | | | | | +---------+---------+---------+---------+---------+---------+---------+---------+---------+ | NEW | [id number] | | Removed | | Rudy | [...] subject | | +---------+---------+---------+---------+---------+---------+---------+---------+---------+ | SCREENI | [id number] | | Resolve | | Rudy | [...] ng | | +---------+---------+---------+---------+---------+---------+---------+---------+---------+ | SCREENI | 4119344 | | Resolve | | Rudy | [...] ng | | +---------+---------+---------+---------+---------+---------+---------+---------+---------+ | NICOTIN | 4620502 | | Active | | Prabhakar | | Nicotin | | | E | 8 | /08 | | /08 | | | e | | | ADDICTI | (SNOMED | | | | VanAnro | | depende | | | ON | CT) | | | | oy MD | | nce | | +---------+---------+---------+---------+---------+---------+---------+---------+---------+ | ASEPTIC | [id number] | | Inactiv | | Ann | [...] hip | | +---------+---------+---------+---------+---------+---------+---------+---------+---------+ | URI | [id number] | | Inactiv | | Phan | | Upper | | | | 9 | / | e | | Middlek | | respira | | | | (SNOMED | | | | auff | | tory | | | | CT) | | | | PAINTER TUMBLING BARREL | | infecti | | | | | | | | | | on | | +---------+---------+---------+---------+---------+---------+---------+---------+---------+ | SORE | [id number] | | Inactiv | | Phan | | Pain in | | | THROAT | 03 | /19 | e | /19 | Middlek | | throat | | | | (SNOMED | | | | auff | | | | | | CT) | | | | PAINTER TUMBLING BARREL | | | | +---------+---------+---------+---------+---------+---------+---------+---------+---------+ | OTHER | 1501177 | | Active | | Prabhakar | [...] | | | +---------+---------+---------+---------+---------+---------+---------+---------+---------+ | OPIOID | [id number] | | Active | | Phan | | Nondepe | | | ABUSE, | 05 | /28 | | /28 | Middlek | | ndent | | | CONTINU | (SNOMED | | | | auff | | opioid | | | OUS | CT) | | | | PAINTER TUMBLING BARREL | | abuse, | | | | | | | | | | continu | | | | | | | | | | ous | | +---------+---------+---------+---------+---------+---------+---------+---------+---------+ | HIP | 2029938 | | Active | | Phan | | Hip | | | PAIN, | 2 | /28 | | /28 | Middlek | | pain | | | LEFT | (SNOMED | | | | auff | | | | | | CT) | | | | PAINTER TUMBLING BARREL | | | | +---------+---------+---------+---------+---------+---------+---------+---------+---------+ | UPPER | 7832453 | | Inactiv | | Malachi K [...] on | | +---------+---------+---------+---------+---------+---------+---------+---------+---------+ | BRACHIA | 0510775 | | Inactiv | | Malachi Levin [...] | | | +---------+---------+---------+---------+---------+---------+---------+---------+---------+ | RIB | 2511576 | | Inactiv | | Malachi Levin | | Rib | | | PAIN | | | | | Dye | | pain | | | | (SNOMED | | | | ACNP | | | | | | CT) | | | | | | | | +---------+---------+---------+---------+---------+---------+---------+---------+---------+ | LESION | 4355757 | | Active | | Clementina | [...] | | | +---------+---------+---------+---------+---------+---------+---------+---------+---------+ | ANAL | 6376802 | | Removed | | Karissa | | Anal | per | | FISSURE | 6 | | | / | Sea | | fissure | Alexander | | | (SNOMED | | | | RN | | | [place] | | | CT) | | | | | | | MD | +---------+---------+---------+---------+---------+---------+---------+---------+---------+ | RECTAL | 1084965 | | Removed | | Rodrigo | [...] | 05/11/14 | +---------+---------+---------+---------+---------+---------+---------+---------+---------+ | SCREENI | 3118238 | | Removed | | Juan | [...] ng | | +---------+---------+---------+---------+---------+---------+---------+---------+---------+ | SCREENI | 7683289 | | Removed | | Andriy | | Alcohol | | | NG FOR | | | | | Padovic | | | | | ALCOHOL | (SNOMED | | | | h PAINTER TUMBLING BARREL | | consump | | | ISM | CT) | | | | | | tion | | | | | | | | | | screeni | | | | | | | | | | ng | | +---------+---------+---------+---------+---------+---------+---------+---------+---------+ | FOOT | 2655721 | | Removed | | Skye | | Foot | | | PAIN, | 7 | /15 | | /15 | Epifanio | | pain | | | RIGHT | (SNOMED | | | | PAINTER TUMBLING BARREL | | | | | | CT) [...] | 1 | | | BISACODYL | [id number] | Florecita | | 10 MG | suppositor | | | | 1 | Suhr PAINTER TUMBLING BARREL-C | | SUPP | y QHS PRN [...] | | | | | | | PAINTER TUMBLING BARREL | + + + + + + + + | MIRALAX | 17grams | | | POLYETHYLE | 8357836638 | Melvina | | POWD | mixed [...] Apply prn | | | BALSAM | [id number] | Bobby | | 650-72.5 | to lower | | | JOSEPH-GEOVANY | 3 | Cas[place] | | MG/0.82ML | lip for | [...] | | | RSBG | | Mackenzie PAINTER TUMBLING BARREL-C | + + + + + + + + | CEPACOL | 1 lozenge | | | BENZOCAINE | 5174838573 | Karma | | SORE | every [...] | | | PAIN | | [facility] | | AGREEMENT | 1.2.15 | | | AGREEMENT | | NCMA | | D RATHER | | | | D RATHER | | | + + + + + + + + | UDS | 1.2.15 | | | UDS | | Cyndi Hope | | | consistent | | | | | NCMA | + + + + + + + + | COLACE 100 | 1 cap BID | | | DOCUSATE | [id number] | Florecita | | MG CAPS | | | | SODIUM | 0 | Mackenzie GUPTAP-C | + + + + + + + + | [facility] | take 1 tab | | | LYSINE | 5927525820 | David | | 1000 MG | [...] tab BID | | | CYCLOBENZA | [id number] | Florecita | | YESSY HCL | PRN muscle | | | YESSY HCL | 1 | Suhr PAINTER TUMBLING BARREL-C | | 10 MG TABS | pain | | | | | | + + + + + + + + | NORCO | 1 every 8 | | | HYDROCODON | 0188955124 | Rudy | | 5-325 MG | hours as | | | E-ACETAMIN | 1 | Yaquelin | | TABS | needed | | | OPHEN | | MD | + + + + + + + + | NORCO | 1 tab po | | | HYDROCODON | 3826673917 | Karma | | 5-325 MG | QD | | | E-ACETAMIN | 1 | Berenice MA | | TABS | | | | OPHEN | | | + + + + + + + + | PSEUDOEPHE | 1-2 | | | PSEUDOEPHE | 0384614726 | Marisel | | DRINE HCL | tablets | | | DRINE HCL | 2 | Rubio PAINTER TUMBLING BARREL | | 30 MG TABS | every [...] 1 by | | | TRAMADOL | 9411530822 | Marisel | | HCL 50 MG | mouth | | | HCL | 1 | Rubio PAINTER TUMBLING BARREL | | TABS | every 6 | | | | | | | | hours | | | | | | + + + + + + + + | OXYCODONE | 3-4 per | | | OXYCODONE | 2934209382 | Karma | | HCL 10 MG | day | | | HCL | 1 | Breenice CONRAD | | TABS | | | | | | | + + + + + + + + | OXYCODONE | 1 tab q 4 | | | OXYCODONE | 4371337397 | Karma | | HCL 15 MG | hrs PRN | | | HCL | 1 | Berenice CONRAD | | TABS | pain | | | | | | + + + + + + + + | HYDROCODON | Take 1 tab | | | HYDROCODON | 3105865654 | Melvina | | E-ACETAMIN | po [...] 1 tab | | | TRAMADOL | 8997704032 | Karma | | HCL 50 MG [...] 1 tab | | | OXYCODONE- | 9822137538 | Phan | | ACETAMINOP | by mouth | | | ACETAMINOP | 5 | [facility] | | HEN 5-325 | three | | | HEN | | f PAINTER TUMBLING BARREL | | MG TABS | times per [...] Take 1 | | | AMITRIPTYL | 8295383579 | Marisel | | MG TABS | tab po QHS | | | INE HCL | 0 | Rubio PAINTER TUMBLING BARREL | + + + + + + + + | GUAIFENESI | take 1 to | | | GUAIFENESI | 4817484489 | Marisel | | N 200 MG | 2 tablets | | | N | 0 | Rubio PAINTER TUMBLING BARREL | | TABS | by mouth | [...] Inhale 2 | | | ALBUTEROL | 3146103156 | Malachi K | | 108 (90 [...] 4-6 per | | | HYDROCODON | 9118521089 | Prabhakar | | 5-325 MG | day | | | E-ACETAMIN | 1 | VanMarinerooy | | TABS | | | | OPHEN | | MD | + + + + + + + + | COUMADIN 4 | 1 tab | | | WARFARIN | 1843783480 | David | | MG TABS | [...] Apply prn | | | BALSAM | 9056117521 | David | | 650-72.5 | to [...] | 17grams | | | POLYETHYLE | 5957583786 | David | | POWD | mixed [...] 1 tab | | | WARFARIN | 7632729110 | Florecita | | MG TABS | daily | | | SODIUM | 0 | Suhr PAINTER TUMBLING BARREL-C | + + + + + + + + | OXYCODONE | 3-4 per | | | OXYCODONE | 5941352794 | Rudy | | HCL 10 MG | day | | | HCL | 1 | Yaquelin | | TABS | | | | | | MD | + + + + + + + + | TESSALON | Take three | | | BENZONATAT | 8594773693 | Karma | | RACHEL 100 | [...] | three | | | IBUPROFEN | 6240581157 | Prabhakar | | 600 MG | times per | | | | 0 | VanAnrooy | | TABS | day | | | | | MD | + + + + + + + + | LISINOPRIL | 1 tab one | | | LISINOPRIL | 0823542341 | David | | 20 MG | time per | | | | 1 | [place] | | TABS | day | | | | | MA | + + + + + + + + | [facility] MILK | prn | | | MAGNESIUM | 1115240639 | David | | OF | constipati [...] cap BID | | | DOCUSATE | [id number] | David | | MG CAPS | | | | SODIUM | 0 | [place] | | | | | | | | MA | + + + + + + + + | TYLENOL 8 | 1 tablet | | | ACETAMINOP | 8425840860 | Bobby | | HOUR | every 4 | | | HEN | 1 | [place] | | ARTHRITIS | hours as | [...] TAB Q6 | | | TRAMADOL | 8793083201 | Rudy | | HCL 50 MG | HRS PRN | | | HCL | 1 | Yaquelin | | TABS | PAIN | | | | | MD | + + + + + + + + | CLINDAMYCI | 1 tab by | | | CLINDAMYCI | 3996078122 | Tommy | | N HCL 150 [...] Inhale 2 | | | ALBUTEROL | 7630181324 | Phan | | 108 (90 | puffs | | | SULFATE | 2 | Middlekauf | | Base) | every 4 | | | | | f PAINTER TUMBLING BARREL | | MCG/ACT | hours as | [...] tab q | | | OXYCODONE- | 9614343120 | Florecita | | 7.5-325 MG | 4 hrs for | | | ACETAMINOP | 0 | Suhr PAINTER TUMBLING BARREL-C | | TABS | pain, hold | [...] po bid | | | HYDROCODON | 0485523911 | Cyndi Hope | | E-ACETAMIN | prn severe | | | E-ACETAMIN | 1 | NCMA | | OPHEN | pain | | | OPHEN | | | | 5-325 MG | | | | | | | | TABS | | | | | | | + + + + + + + + | NORCO | 4-6 per | | | HYDROCODON | 5752879580 | Karma | | 5-325 MG | day | | | E-ACETAMIN | 1 | Berenice [place] | | TABS | | | | OPHEN | | | + + + + + + + + | TRAMADOL | 1-2 TAB | | | TRAMADOL | 1925971562 | David | | HCL 50 MG | BID PRN | | | HCL | 1 | [place] | | TABS | PAIN | | | | | MA | + + + + + + + + | GUAIFENESI | 1 tab | | | GUAIFENESI | 2265810658 | Karma | | N 400 MG [...] 2tabs po | | | VARENICLIN | 7355298453 | Rudy | | MG TABS | qd | | | E TARTRATE | 6 | Yaquelin | | | | | | | | MD | + + + + + + + + | BISAC-EVAC | 1 | | | BISACODYL | 4584727104 | David | | 10 MG | [...] 1 tab | | | PSEUDOEPHE | 9927288763 | Phan | | ARVIND HCL | by mouth | | | ARVIND HCL | 2 | Middlekauf | | 30 MG TABS | four times | | | | | f PAINTER TUMBLING BARREL | | | per day | | [...] 1tab by | | | HYDROCODON | 5580688020 | David | | 7.5-325 MG | [...] Take 1 | | | DOXYCYCLIN | 5431149761 | Malachi Levin | | E HYCLATE [...] 1 tablet | | | MELOXICAM | 7352555317 | Phan | | MG TABS | by mouth | | | | 1 | Middlekauf | | | daily. | | | | | f PAINTER TUMBLING BARREL | | | Must last | | | | | | | | 30 days. | | | | | | + + + + + + + + | CLINDAMYCI | 1 tab by | | | CLINDAMYCI | 8842518432 | Malachi K | | N HCL [...] | prn | | | MAGNESIUM | 0249136113 | Melvina | | OF | constipati [...] By mouth | | | IBUPROFEN | 9268076199 | Andriy | | 200 MG | 3 times a | | | | 1 | Padovich | | TABS | day | | | | | PAINTER TUMBLING BARREL | + + + + + + + + | CHANTIX 1 | 1 tab two | | | VARENICLIN | 1532316712 | Karma | | MG TABS | times per | | | E TARTRATE | 6 | Berenice [place] | | | day | | | | | | + + + + + + + + | HYDROCODON | Take 1 tab | | | HYDROCODON | 7017191716 | Karma | | E-ACETAMIN | po [...] tab BID | | | CYCLOBENZA | 2774823378 | David | | YESSY HCL | PRN muscle | | | YESSY HCL | 1 | [place] | | 10 MG TABS | pain | | | | | MA | + + + + + + + + | IBUPROFEN | three | | | IBUPROFEN | 0770424982 | Rudy | | 600 MG | times per | | | | 0 | Yaquelin | | TABS | day | | | | | MD | + + + + + + + + | PERCOCET | take 1 by | | | OXYCODONE- | 9020543215 | Marisel | | 5-325 MG | mouth two | | | ACETAMINOP | 0 | Rubio PA[employer] TUMBLING BARREL | | TABS | times per | [...] | follow | | | VARENICLIN | 8884539636 | Marisel | | STARTING | instructio | | | E TARTRATE | 3 | Rubio PAINTER TUMBLING BARREL | | MONTH LIZA | ns on [...] 1 by | | | TRAMADOL | 4627798446 | Marisel | | HCL 50 MG | mouth | | | HCL | 1 | Rubio PAINTER TUMBLING BARREL | | TABS | every 6 | | | | | | | | hours | | | | | | + + + + + + + + | PSEUDOEPHE | 1-2 | | | PSEUDOEPHE | 5459833587 | Marisel | | DRINE HCL | tablets | | | DRINE HCL | 2 | Rubio PAINTER TUMBLING BARREL | | 30 MG TABS | every [...] | 1-2 | | | PSEUDOEPHE | 6581103466 | Marisel | | DRINE HCL | tablets | | | DRINE HCL | 2 | Rubio PAINTER TUMBLING BARREL | | 30 MG TABS | every [...] 1 to | | | GUAIFENESI | 6673540862 | Marisel | | N 200 MG | 2 tablets | | | N | 0 | Rubio PAINTER TUMBLING BARREL | | TABS | by mouth | [...] 1 spray | | | FLUTICASON | 3206474737 | Marisel | | ALLERGY | eash [...] tab one | | | LISINOPRIL | 6642316438 | Rudy | | 20 MG | time per | | | | 1 | Yaquelin | | TABS | day | | | | | MD | + + + + + + + + | CHANTIX 1 | take 1tab | | | VARENICLIN | 6563262217 | Rudy | | MG TABS | po daily | | | E TARTRATE | 6 | Yaquelin | | | | | | | | MD | + + + + + + + + | ELAVIL 25 | Take 1 | | | AMITRIPTYL | 6699297277 | Rudy | | MG TABS | tab po QHS | | | INE HCL | 0 | Yaquelin | | | | | | | | MD | + + + + + + + + | TRAMADOL | 1-2 TAB | | | TRAMADOL | 6358466162 | Rudy | | HCL 50 MG | BID PRN | | | HCL | 1 | Yaquelin | | TABS | PAIN | | | | | MD | + + + + + + + + | TRAMADOL | 1 TAB BID | | | TRAMADOL | 2154831146 | Rudy | | HCL 50 MG | PRN PAIN | | | HCL | 1 | Yaquelin | | TABS | | | | | | MD | + + + + + + + + | NORCO | 1tab by | | | HYDROCODON | 4905796218 | Rudy | | 7.5-325 MG | [...] TAB Q6 | | | TRAMADOL | 1409591620 | Prabhakar | | HCL 50 MG | HRS PRN | | | HCL | 1 | VanAnrooy | | TABS | PAIN | | | | | MD | + + + + + + + + | NORCO | 1tab po | | | HYDROCODON | 8256008994 | Rudy | | 7.5-325 MG | [...] tab po | | | HYDROCODON | 8149525983 | Rudy | | 5-325 MG | QD | | | E-ACETAMIN | 1 | Yaquelin | | TABS | | | | OPHEN | | MD | + + + + + + + + | TRAMADOL | take 1 tab | | | TRAMADOL | 6388235854 | Rudy | | HCL 50 MG | nightly | | | HCL | 1 | Yaquelin | | TABS | | | | | | MD | + + + + + + + + | NORCO | 1 every 8 | | | HYDROCODON | 5396978414 | Prabhakar | | 5-325 MG | hours as | | | E-ACETAMIN | 1 | VanAnrooy | | TABS | needed | | | OPHEN | | MD | + + + + + + + + | OXYCODONE | 1 tab q 4 | | | OXYCODONE | 4829654992 | Florecita | | HCL 15 MG | hrs PRN | | | HCL | 1 | Suhr PAINTER TUMBLING BARREL-C | | TABS | pain | | | | | | + + + + + + + + | [facility] | take 1 tab | | | LYSINE | 7127872753 | Rudy | | 1000 MG | [...] tab q | | | OXYCODONE- | 2168993194 | Florecita | | 7.5-325 MG | 4 hrs for | | | ACETAMINOP | 0 | Suhr PAINTER TUMBLING BARREL-C | | TABS | pain, hold | | | HEN | | | | | if | | | | | | | | somnolent | | | | | | | | or asleep. | | | | | | + + + + + + + + | PERCOCET | 1-2 tab q | | | OXYCODONE- | [id number] | Florecita | | 7.5-325 MG | 4 hrs PRN | | | ACETAMINOP | 0 | Suhr [employer]-C | | TABS | pain, | | | HEN | | | | | dispense | | | | | | | | #84 | | | | | | + + + + + + + + | TESSALON | Take three | | | BENZONATAT | [id number] | Loraine | | PERLES 100 | [...] 1tab po | | | VARENICLIN | [id number] | Rudy | | MG TABS | bid | | | E TARTRATE | 6 | Yaquelin | | | | | | | | MD | + + + + + + + + | HYDROCODON | Take 1 tab | | | HYDROCODON | [id number] | Rudy | | E-ACETAMIN | po [...] po qd | | | LISINOPRIL | [id number] | Rudy | | 20 MG | | | | | 1 | Yaquelin | | TABS | | | | | | MD | + + + + + + + + | TRAMADOL | 1 TAB Q6 | | | TRAMADOL | [id number] | Prabhakar | | HCL 50 MG | HRS PRN | | | HCL | 1 | VanAnrooy | | TABS | PAIN | | | | | MD | + + + + + + + + | CEPACOL | 1 lozenge | | | BENZOCAINE | [id number] | Phan | | SORE | every 2 | | | -MENTHOL | 0 | Middlekauf | | THROAT | hours as | | | | | f PA[employer] | | 10-2.1 MG | needed for | | | | | | | LOZG | sore | | | | | | | | throat | | | | | | + + + + + + + + | GUAIFENESI | 1 tab | | | GUAIFENESI | [id number] | Phan | | N 400 MG | every 4 | | | N | 0 | Middlekauf | | TABS | hours as | | | | | f [employer] | | | needed for | | | | | | | | | | | | | | | | cough/yaw | | | | | | | | estion | | | | | | + + + + + + + + | PSEUDOEPHE | Take 1 tab | | | PSEUDOEPHE | [id number] | Malachi Levin | | DRINE HCL [...] Take 3 | | | PREDNISONE | [id number] | Malachi K | | 20 MG [...] 1 tab | | | OXYCODONE- | [id number] | Malachi Levin | | ACETAMINOP | [...] Take 1 | | | GABAPENTIN | [id number] | Malachi Levin | | 300 MG [...] 1 tab | | | CYCLOBENZA | [id number] | Malachi Levin | | YESSY HCL [...] po bid | | | HYDROCODON | [id number] | Tommy | | E-ACETAMIN | prn [...] 1 tablet | | | MELOXICAM | [id number] | Jovany | | MG TABS | [...] | | | | | | | PA[employer]REL | + + + + + + [...] | | | | | | | PA[employer]UMBLING [employer]REL | +---------+ + + + + + | CODEINE | Itch | | Critical | No Longer | Skye | | | | | | Active | Epifanio PA[employer]UM[employer]ING [employer]REL | +---------+ + + + + + | SULFA | Break out in | | Critical | | Skye | | | lashon | | | | Epifanio [employer] | +---------+ + + + + + [...] +--------+------+---+---+---+ + + + | Office Visit: [facility] | + + + +--------+------+---+---+---+ + | [...] + + + | Lab Report: Edwin ASHTON AMP | + + + + + [...] +--------+ +---+---+---+ + | | ESM_RR | [id number] | | | B | e-scripts | [...] | | | | | | | [id number]` | | | | | | | | [phone] | | | | | | | [...] | | | Dietary | | | [employer] | | | | | management | [...] | | | Dietary | | | [employer] | | | | | management | [...] + + | Office Visit: Ortho Post bill L MELONY 06/14/16 | + + + [...] + + +---+ + + + | Group Home Facility: Nursing Facility Care / Discharge anticipated [...] + + + +---+---+---+ + | | PATELPED#1 | 06/17/2016 | | | | Pneumococc [...] + + +---+ + + + | Group Home Facility: Nursing Facility Care / Initial Encounter [...] + + + +---+-----+---+ + | | ANASTACIO-LILY-MICHELLEK | Negative | | NEG | N [...] +--------+-----+---+---------+---+ + + + | Office Visit: BUSHEL GIRL 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- lft hip pain | + [...] | | | Dietary | | | [employer] | | | | | management | [...] Appointment | 03:00 PM | Marisel Bergeron [facility], [address] | | | | [facility] [address], | | | | [place], [address], | | | | | + + + + | Appointment | 11:20 AM | Prabhakar Gusman MD, [address] | | [address], | | | | [place], [address], | + + + + | Appointment | 01:00 PM | Marisel Bergeron [facility], [address] | | | | [facility] [address], | | | | [place], [address], | | | | | + + + + | Referral | | ENT Consult | | | | [employer] Phone #, [phone] | | | [address], | | | | [place], [address] | | | | | + + + + | Referral | | ENT Consult | | | | [facility] Phone #, [phone] | | | [address], | | | | [place], [address] | | | | | + + + + | Referral | | Podiatry Consult | | | | GUILLERMO Haley, | | | | [address] [facility], | | | | [place], [address] | | | | | + + [...] | + + + + + | [id number] | Overweight | | | + + + + + | [id number] | Overweight | | | + + + + + | CPT-J1885 | Toradol 15mg | | | + + + + + | CPT-85464 | Theraputic | | | | | Injection (IM/SubQ) | | | + + + + + | [id number] | Overweight | | | + + + + + | CPT-10854 | Theraputic | | | | | Injection (IM/SubQ) | | | + + + + + | CPT-J1885 | Toradol 15mg | | | + + + + + | CPT-84178 | Urine Toxicology | | | | | Screen, Multiple | | | | | Drug Classes by | | | | | Direct Optical | | | | | Observation | | | + + + + + | CPT-86673 | [id number] MH Individual | | | | | Therapy (53-112) | | | | | No POS Phone | | | + + + + + | CPT-89867 | XR Hip W/Pelvis | | | | | 2-3V-Lt | | | + + + + + | CPT-84275 | Theraputic | | | | | Injection (IM/SubQ) | | | + + + + + | CPT-J1885 | Toradol 15mg | | | + + + + + | CPT-52013 | Urine Toxicology | | | | | Screen, Multiple | | | | | Drug Classes by | | | | | Direct Optical | | | | | Observation | | | + + + + + | CPT-32694 | Theraputic | | | | | Injection (IM/SubQ) | | | + + + + + | CPT-J1885 | Toradol 15mg | | | + + + + + | CPT-19787 | Theraputic | | | | | Injection (IM/SubQ) | | | + + + + + | CPT-J1885 | Toradol 15mg | | | + + + + + | CPT-96550 | Theraputic | | | | | Injection (IM/SubQ) | | | + + + + + | CPT-J1885 | Toradol 15mg | | | + + + + + | CPT-44144 | XR Hip W/Pelvis | | | | | 2-3V-Lt | | | + + + + + | CBC AUTO 84282 | CBC w/ Auto Diff | | | + + + + + | CPT-95948 | XR Hip W/Pelvis | | | | | 2-3V-Lt | | | + + + + + | CBC AUTO 46594 | CBC w/ Auto Diff | | | + + + + + | M NOS MRSA 32989 | Nose Culture, MRSA | | | | | Only | | | + + + + + | CHEM 8 01309 | Basic Metabolic | | | | | Panel | | | + + + + + | CPT-76208 | Health Risk | | | | | Assessment | | | + + + + + | GLYCO HGB 45352 | Glyco Hemoglobin, | | | | | A1C | | | + + + + + | CPT-55820 | Health Risk | | | | | Assessment | | | + + + + + | CPT-81218 | Health Risk | | | | | Assessment | | | + + + + + | U NICOTINE 03565 | Cotinine | | | + + + + + | 78955 | MR Hip-WO Con-Lt | | | + + + + + | CPT-52875 | XR Hip W/Pelvis | | | | | 2-3V-Lt | | | + + + + + | CPT- 70088 | Administration | | | | | (69761) | | | + + + + + | CPT-J1885 | Toradol Inj. 60mg | | | + + + + + | CPT-28777 | Urine Tox, multiple | | | | | drug classes | | | + + + + + | 28350 | XR Foot 2V-Rt | | | + + + + + | [id number] | [Recorded for CQM] | | | | | Pedal pulse taking | | | | | (procedure) | | | + + + + + | [id number] | [Recorded for CQM] | | | | | Documentation of | | | | | current medications | | | | | (procedure) | | | + + + + + | [id number] | [Recorded for CQM] | | | | | Health-related | | | | | behavior | | | + + + + + | [id number] | MU Generic Patient | | | | | Encounter Service | | | | | (from patch) | | | + + + + + | [id number] | [Recorded for CQM] | | | | | Pedal pulse taking | | | | | (procedure) | | | + + + + + | [id number] | [Recorded for CQM] | | | | | Documentation of | | | | | current medications | | | | | (procedure) | | | + + + + + | [id number] | [Recorded for CQM] | | | | | Drug or Medication | | | + + + + + | [id number] | [Recorded for CQM] | | | | | Details of drug | | | | | misuse behavior | | | + + + + + | [id number] | [Recorded for CQM] | | | | | Never smoker | | | + + + + + | [id number] | [Recorded for CQM] | | | | | Never smoked | | | | | tobacco (finding) | | | + + + + + | [id number] | [Recorded for CQM] | | | | | Tobacco use and | | | | | exposure | | | + + + + + | 663262519 | [Recorded for CQM] | | | | | Alcohol intake | | | + + + + + | [id number] | [Recorded for CQM] | | | | | Allergy | | | + + + + + | 314288952 | [Recorded for CQM] | | | | | Alcohol intake | | | + + + + + | [id number] | [Recorded for CQM] | | | | | Tobacco use and | | | | | exposure | | | + + + + + | [id number] | [Recorded for CQM] | | | | | Details of drug | | | | | misuse behavior | | | + + + + + | [id number] | [Recorded for CQM] | | | | | Drug or Medication | | | + + + + + | [id number] | [Recorded for CQM] | | | | | Current Light | | | | | tobacco smoker | | | + + + + + | [id number] | [Recorded for CQM] | | | | | Light tobacco | | | | | smoker (finding) | | | + + + + + | [id number] | [Recorded for CQM] | | | | | Documentation of | | | | | current medications | | | | | (procedure) | | | + + + + + | [id number] | [Recorded for CQM] | | | | | Pedal pulse taking | | | | | (procedure) | | | + + + + + | 71027 | XR Foot 2V-Rt | | | [...]
[2019-09-25] MEDS ORDERED: NORVASC10 MG PO (19:05)
--- OUTSIDE RECORDS SUMMARY | 2019-09-25 19:56 | XMS ---
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 No recent Security Events currently on file CRITERIA MET - 6 ED Visits in 6 Months - [facility] - 3 Facilities in 90 Days - [facility] OSKAR Shaw Nurse Practitioner: Current PHONE: [phone] ISAI [facility] Current PHONE: [phone] Asia Larson Bursar/Furnace Tender 09/11/2018-Current PHONE: [phone] VANESSA EVERETT Internal Medicine Current PHONE: [phone] Momo Lebron Nurse Practitioner: Family Current PHONE: [phone] Care Guidelines exist for the following facilities: [facility] ( 07/31/2017 ) [facility] ( 07/31/2017 ) [facility] ( 07/25/2016 ) Care History Behavioral 01/20/2015 [facility] 01/20/2015 [facility] Patient has Drug Seeking Behaviors. Per ED chart note 05/16/14, the patient became very angry and was demanding narcotics. Thereare other ED and Urgent care documentations, noting the patient gets aggitated when he is not able to receive a narcotic prescription. On 02/15/14 The patient told a health care provider he had been off his pain medicaiton for 4 months.The provider noted that with a review of the [facility] site the patient had been getting multiple narcotic prescriptions from multiple providers and from multiple locations. Chart notes indicate the patient has a history of intravenous Methamphetamine abuse. E.D. VISIT COUNT (12 MO.) [address] [place] [id number] [place] [address] [place] [address] [place] [address] TOTAL 78 NOTE: Visits indicate total known visits. ED/UCC VISIT TRACKING (12 MO.) 09/25/2019 17:38 [place] [place] TYPE: Emergency COMPLAINT: - ABDOMINAL PAIN 08/22/2019 16:37 [facility] [place] TYPE: Emergency COMPLAINT: - L LEG PN 08/17/2019 14:24 [facility] [place] TYPE: Emergency COMPLAINT: - DENTAL 08/08/2019 11:44 [facility] TYPE: Emergency COMPLAINT: - LF SWELLING 08/04/2019 14:40 [facility] [place] TYPE: Emergency COMPLAINT: - R FACE SWELLING 08/03/2019 07:53 [place] [place] TYPE: Emergency COMPLAINT: - TOOTH ABSCESS 07/29/2019 08:00 [place] [place] TYPE: Emergency COMPLAINT: - TOOTH ABSCESS 07/13/2019 11:18 [facility] [place] TYPE: Emergency COMPLAINT: - FOLLOW UP FINGER INF DIAGNOSES: - Other chronic pain - Ingrowing nail - Cellulitis of left finger - Cellulitis of left finger - Nicotine dependence, cigarettes, uncomplicated - Allergy status to sulfonamides status 07/11/2019 01:48 [place] TYPE: Emergency COMPLAINT: - FINGER WOUND RECHECK DIAGNOSES: - Cellulitis of left finger - Other jail (current) drug therapy - Allergy status to sulfonamides status - Nicotine dependence, cigarettes, uncomplicated - Cellulitis of left finger 07/09/2019 13:41 [facility]: Emergency DIAGNOSES: - Cellulitis of left finger - Hand Pain - left finger infection 07/07/2019 21:38 [facility] TYPE: Emergency COMPLAINT: - PAIN IN LEFT FINGER(S) DIAGNOSES: - Other specified soft tissue disorders - FINGER PAIN - FINGER PAIN EMS BED - Methicillin resistant Staphylococcus aureus infection as the - Pain in left finger(s) - Tobacco use - Cellulitis of left finger - Local infection of the skin and subcutaneous tissue, unspecif 07/01/2019 00:24 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 - Other jail (current) drug therapy - Nicotine dependence, cigarettes, uncomplicated - Pain in right arm - Pain in right arm 06/30/2019 19:21 [facility] TYPE: Emergency DIAGNOSES: - right arm pain - Arm Pain - Chronic pain due to trauma - Pain in right arm 06/29/2019 23:11 [facility] TYPE: Emergency DIAGNOSES: - Lesion of ulnar nerve, right upper limb - Right Arm Pain - R arm nerve pain 06/29/2019 17:27 [facility] TYPE: Emergency COMPLAINT: - PAIN IN RIGHT ELBOW DIAGNOSES: - Tobacco use - Other specified postprocedural states - ARM PAIN PCP KACY - 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 - Pain in right elbow - Other chronic pain 06/27/2019 22:12 [facility] TYPE: Emergency COMPLAINT: - PAIN IN RIGHT ELBOW DIAGNOSES: - Injury of ulnar nerve at upper arm level, right arm, initial - Other jail (current) drug therapy - Nicotine dependence, cigarettes, uncomplicated - Other and unspecified overexertion or strenuous movements or - Paresthesia of skin - Activity, basketball - Other specified postprocedural states - Pain in right elbow - Chronic pain syndrome - ARM PAIN MALU BLUE - Lesion of ulnar nerve, right upper limb - Pain in right elbow 06/15/2019 15:49 [facility] TYPE: Emergency COMPLAINT: - PAIN IN RIGHT ANKLE AND JOINTS OF RIGHT FOOT DIAGNOSES: - Anesthesia of skin - Pain in right arm - Malingerer [conscious simulation] - Paresthesia of skin - SHLDER PAIN MALU GORMAN - Pain in right ankle and joints of right foot - Nicotine dependence, cigarettes, uncomplicated 06/09/2019 11:23 [facility] TYPE: Emergency DIAGNOSES: - Oral Swelling - Chronic pain syndrome - dental pain - Other specified disorders of teeth and supporting structures 06/07/2019 19:05 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
[2019-09-25] MEDS ORDERED: DICYCLOMINE HCL20 MG PO (21:10)
== END 2019-09-25 21:28 | disposition home or self-care (01) ==
LOC: ED 17:37
DX: R10.31 Right lower quadrant pain (principal); I10 Essential (primary) hypertension; F17.200 Nicotine dependence, unspecified, uncomplicated; Z88.2 Allergy status to sulfonamides; Z79.899 Other long term (current) drug therapy
CPT/HCPCS: 74177; 80053; 81001; 83690; 85025; 87493; 96361; 96375; 99284-25; J2270; J2405; J7030; Q9967

== ENCOUNTER 2019-09-30 19:02 | Emergency (ER) | payer MEDICAID ==
[~2019-09-30] VITALS: Ht 185.4 cm; Wt 106.6 kg
--- OUTSIDE RECORDS SUMMARY | ~2019-09-30 | XMS | Encounter Summary ---
Demographics + + + | Address | [address] | | | [place] [address] | + + + | Home Phone | | + + + | Preferred Language | Unknown | + + + | Marital Status | Single | + + + | Yazidi Affiliation | NRP | + + + | Race | White | + + + | Ethnic Group | Not or | + + + Author + + + | Author | [facility] | + + + | Organization | [facility] | + + + | Address | Unknown | + + + | Phone | Unavailable | + + + Support + + +---------+ + | Name | Relationship | Address | Phone | + + +---------+ + | Liss Hughes | ECON | Unknown | | + + +---------+ + Care Team Providers + +------+ + | Care Board Hammer Operator Name | Role | Phone | + +------+ + PCP | Unavailable | + +------+ + Encounter Details +--------+ + + + + | Date | Type | Department | Care Team | Description | +--------+ + + + + | 09/14/ | ED Progress | [facility] | Malachi Bell, | ED Progress Note | | 2016 | | [address] | [facility] | | | | Note-Transc | [place], [place] | HOS[facility] | | | | ribed | [phone] | [address] | | | | | | [place] [address] | | | | | | [phone] | | | | | | | | +--------+ + + + + Social History + +-------+ +--------+------+ | Tobacco Use | Types | Packs/Day | Years | Date | | | | | Used | | + +-------+ +--------+------+ | Never Assessed | | | | | + +-------+ +--------+------+ + + + | Sex Assigned at | Date Recorded | | | | + + + | Not on file | | + + + + + + + | Job Start Date | Occupation | Industry | + + + + | Not on file | Not on file | Not on file | + + + + + + + + | Travel History | Travel Start | Travel End | + + + + + + | No recent travel history available. | + + documented as of this encounter Plan of Treatment Not on filedocumented as of this encounter Visit Diagnoses Not on filedocumented in this encounter"
--- OUTSIDE RECORDS SUMMARY | ~2019-09-30 | XMS | Encounter Summary ---
Demographics + + + | Address | [address] | | | [place] [address] | + + + | Home Phone | | + + + | Preferred Language | Unknown | + + + | Marital Status | Single | + + + | Lutheran Affiliation | NRP | + + + | Race | White | + + + | Ethnic Group | Not or | + + + Author + + + | Author | [facility] | + + + | Organization | [facility] | + + + | Address | Unknown | + + + | Phone | Unavailable | + + + Support + + +---------+ + | Name | Relationship | Address | Phone | + + +---------+ + | Liss Hughes | ECON | Unknown | | + + +---------+ + Care Team Providers + +------+ + | Care Xerox Machine Mechanic Name | Role | Phone | + +------+ + | Rudy Jamison MD | PCP | | + +------+ + Reason for Visit AUTH/CERT +--------+--------+ + + + + | Status | Reason | Specialty | Diagnoses / | Referred By | Referred To | | | | | Procedures | Contact | Contact | +--------+--------+ + + + + | | | | | | | +--------+--------+ + + + + Encounter Details +--------+ + + + + | Date | Type | Department | Care Team | Description | +--------+ + + + + | 06/06/ | Anesthesia | [facility] | Pearl Dominguez | | | 2018 | Event | [facility] | MD [place] [address] | | | | | and Healing Surgery | [address] | | | | | Center Admitting | [place], [place] | | | | | Desk Located on the | [address] | | | | | 4th floor [address] | [phone] | | | | | [address] [place], | | | | | | [place] [address] | | | +--------+ + + + + Anesthesia Record + + + + + | Procedure Name | Responsible | Anesthesia Start | Anesthesia Stop Time | | | Anesthesiologist | Time | | + + + + + | EXCISIONAL BIOPSY OF | Pearl Dominguez, | 06/06/17 1036 | 06/06/17 1255 | | RIGHT SEPTAL | MD | | | | LESION, POSSIBLE | | | | | SEPTOPLASTY (Right ) | | | | + + + + + +----+---+ + + | Da | T | Event | Comment | | te | i | | | | | m | | | | | e | | | +----+---+ + + | 02 | 1 | Eq Check | Anesthesia machine checked Equipment verified | | /0 | 0 | | | | 6/ | 2 | | | | 20 | 2 | | | | 18 | | | | +----+---+ + + | | 1 | Eq Check | Anesthesia machine checked Equipment verified | | | 0 | | | | | 3 | | | | | 6 | | | +----+---+ + + | | 1 | Pt. Check | Prior to anesthesia start, pt. Identified, examined, chart | | | 0 | | reviewed, PARQ held, anesthetic plan made or approved by | | | 3 | | attending anesthesiologist. NPO status confirmed as appropriate | | | 6 | | for procedure Preoperative evaluation: unchanged | +----+---+ + + | | 1 | An Start | | | | 0 | | | | | 3 | | | | | 6 | | | +----+---+ + + | | 1 | An Start | | | | 0 | Data | | | | 4 | | | | | 1 | | | +----+---+ + + | | 1 | Vitals | Monitors applied Vital signs checked Patient ready for anesthesia | | | 0 | Checked | | | | 4 | | | | | 7 | | | +----+---+ + + | | 1 | ETT | | | | 0 | | | | | 5 | | | | | 4 | | | +----+---+ + + | | 1 | Ready | | | | 1 | | | | | 2 | | | | | 7 | | | +----+---+ + + | | 1 | Abx | | | | 1 | Administere | | | | 2 | d | | | | 7 | | | +----+---+ + + | | 1 | Timeout | | | | 1 | | | | | 2 | | | | | 7 | | | +----+---+ + + | | 1 | Incision | | | | 1 | | | | | 2 | | | | | 8 | | | +----+---+ + + | | 1 | Surgery end | | | | 2 | | | | | 3 | | | | | 0 | | | +----+---+ + + | | 1 | An Extubate | Neuromuscular function Intact. Pharynx suctioned. Patient obeys | | | 2 | | commands. Adequate pulmonary mechanics. | | | 3 | | | | | 8 | | | +----+---+ + + | | 1 | an stop | | | | 2 | data | | | | 3 | | | | | 9 | | | +----+---+ + + | | 1 | PACU Rpt | | | | 2 | Given | | | | 5 | | | | | 5 | | | +----+---+ + + | | 1 | Anesthesia | | | | 2 | End | | | | 5 | | | | | 5 | | | +----+---+ + + +------+ | Meds | +------+ + + + | Name | Total | + + + | midazolam | 2 mg | + + + | fentaNYL | 450 mcg | + + + | lidocaine 2% | 50 mg | + + + | propofol | 300 mg | + + + | rocuronium | 80 mg | + + + | ondansetron | 4 mg | + + + | neostigmine | 4 mg | + + + | glycopyrrolate | 0.6 mg | + + + | ceFAZolin (ANCEF) injection 2 g | 3,000 mg | + + + | PHENYLEPHrine | 300 mcg | + + + | esmolol | 30 mg | + + + | dexamethasone | 10 mg | + + + | lactated Ringers IV | 1,700 mL | + + + + + | Name | + + | Insp Sevo | + + | Et Sevo | + + | O2 Flow Rate (Total Liters) | + + | Air Flow rate (L/min) | + + + + | No blood administrations on file. | + + +--------+ + + + | Type | Details | Placement | Removal | +--------+ + + + | Periph | 06/06/17; 0950; Left; | 06/06/17 0950 by | 06/06/17 1500 by | | deidrel | Antecubital; 20 g; None; | Luma Vargas RN | Steven Crowder RN | | IV | Positive; 06/06/17; 1500 | | | +--------+ + + + | Incisi | 06/06/17; 1223; nose; 06/06/17; | 06/06/17 1223 by | 06/06/17 1500 by | | on | 1500 | Alden Smart RN | Steven Crowder RN | +--------+ + + + documented in this encounter Social History + +-------+ +--------+ + | Tobacco Use | Types | Packs/Day | Years | Date | | | | | Used | | + +-------+ +--------+ + | Former Smoker | | | | Quit: 03/31/2016 | + +-------+ +--------+ + + +---+---+---+ | Smokeless Tobacco: | | | | | Never Used | | | | + +---+---+---+ + + +---------+ + | Alcohol Use | Drinks/Week | oz/Week | Comments | + + +---------+ + | No | 2 Standard drinks | 2.0 | | | | or equivalent | | | + + +---------+ + + + + | Sex Assigned at [...] Not on filedocumented as of this encounter Procedures + +--------+ + + + | Procedure Name | Priori | Date/Time | Associated Diagnosis | Comments | | | ty | | | | + +--------+ + + + | NAVEED RYAN | Routin | 06/06/2017 | | Results for this | | | e | 12:21 PM | | procedure are in the | | | | PST | | results section. | + +--------+ + + + documented in this encounter Results NAVEED RYAN (06/06/2017 12:21 PM PST) + + + | Narrative | Performed At | + + + | Pearl Dominguez MD 06/06/2017 3:51 PM Procedure Reason | | | for Intubation: For surgical procedure, Location Performed: [place] , | | | Patient was preoxygenated Mask Ventilation Grade 2 - Ventilated by | | | mask with oral airway/adjuvant Intubation Atraumatic | | | laryngoscopy: Atraumatic Laryngoscopy, Laryngoscopic view: Grade I, | | | Fiberoptics used: Glidescope , Number of Attempts: 4, Positive for | | | EtCO2: Yes, Breath sounds: Bilateral and equal Prior intubation | | | attempts: Blade type: Mariam , Blade size: 3, Atraumatic | | | Laryngoscopy: no second Atraumatic Laryngoscopy, Intubation | | | adjuncts: w/ Bougie, , Laryngoscopic view: Grade III, Fiberoptics | | | used: N/A ETT Ett Adult: Single-lumen cuffed ETT Size: 7.5 ETT | | | secured with: adhesive tape Depth at Lip: 22 Cm Narrative | | | Attending physically present 1st attempt - Mac 3 with BURP | | | maneuver. Grade III By Carrington Jessica 2nd attempt - [facility] 3 readjusted | | | head and shoulders for a higher sniffing position with BURP | | | maneuver and Ett styleted. By Carrington Jessica. Grade III. Mask | | | ventilate, brief desat to mid 80s, still easy to ventilate, rapidly | | | up to mid 90s. 3rd attempt while awaiting advanced airway tools, E | | | Angelica. Dickson 3, easy lift esophagus, not much view beyond, | | | attempt bougie blind, unable to pass. Mask ventilate, mid-80s, | | | easily up to mid 90s. 4.5 LMA, advanced tools arrived. 4th | | | attempt - Glidescope Gr I. Slight amount of bleeding noticed in the | | | hypopharynx by no overt structural trauma. Pt was anterior, deep and | | | upon view with glidescope it was apparent the bougie was not going | | | through cords because the opening between the cords was small. Small | | | arytenoids as well made it difficult to identify any structures to | | | attempt to blindly place tube. Front teeth without any change | | | to structure compared to pre-op evaluation of teeth despite poor | | | dentition. Able to ventilate patient with oral airway. | | + + + + + | Procedure Note | + + | Pearl Dominguez MD - 06/06/2017 12:21 PM PST Procedure Reason for Intubation: For | | surgical procedure, Location Performed: [place] , Patient was preoxygenatedMask | | VentilationGrade 2 - Ventilated by mask with oral airway/adjuvant IntubationAtraumatic | | laryngoscopy: Atraumatic Laryngoscopy, Laryngoscopic view: Grade I, Fiberoptics used: | | Glidescope , Number of Attempts: 4, Positive for EtCO2: Yes, Breath sounds: Bilateral | | and equal Prior intubation attempts:Blade type: Mariam , Blade size: 3, Atraumatic | | Laryngoscopy: no second Atraumatic Laryngoscopy, Intubation adjuncts: w/ Bougie, , | | Laryngoscopic view: Grade III, Fiberoptics used: N/A ETTEtt Adult: Single-lumen cuffed | | ETT Size: 7.5 ETT secured with: adhesive tape Depth at Lip: 22 Cm | | NarrativeAttending physically present 1st attempt - Mac 3 with BURP maneuver. Grade | | III By Carrington Jessica2nd attempt - Mil 3 readjusted head and shoulders for a higher | | sniffing position with BURP maneuver and Ett styleted. By Carrington Jessica. Grade III.Mask | | ventilate, brief desat to mid 80s, still easy to ventilate, rapidly up to mid 90s.3rd | | attempt while awaiting advanced airway tools, E Angelica. Forman 3, easy lift | | esophagus, not much view beyond, attempt bougie blind, unable to pass.Mask ventilate, | | mid-80s, easily up to mid 90s.4.5 LMA, advanced tools arrived. 4th attempt - Glidescope | | Gr I. Slight amount of bleeding noticed in the hypopharynx by no overt structural | | trauma. Pt was anterior, deep and upon view with glidescope it was apparent the bougie | | was not going through cords because the opening between the cords was small. Small | | arytenoids as well made it difficult to identify any structures to attempt to blindly | | place tube. Front teeth without any change to structure compared to pre-op evaluation of | | teeth despite poor dentition.Able to ventilate patient with oral airway. | | | |Front teeth without any change to structure compared to pre-op evaluation of teeth despite poor dentition. | |Able to ventilate patient with oral airway. | + + documented in this encounter Visit Diagnoses Not on filedocumented in this encounter Administered Medications + +--------+ + +------+------+ | Medication Order | MAR | Action | Dose | Rate | Site | | | Action | Date | | | | + +--------+ + +------+------+ | ceFAZolin (ANCEF) injection 2 g | Given | 06/06/19 | 3,000 mg | | | | 2 g, intravenous, PREPROCEDURE | | 18 11:27 | | | | | ONCE, 1 dose, Starting 06/06/17 | | AM PST | | | | | at 0927, Until e 06/06/17 at | | | | | | | 1127 | | | | | | + +--------+ + +------+------+ +---+---+ | | | +---+---+ + +-------+ +-------+---+---+ | dexamethasone (DECADRON) | Given | 06/06/19 | 10 mg | | | | injection intravenous, | | 18 11:25 | | | | | INTRAPROCEDURE PRN, Starting Tue | | AM PST | | | | | 06/06/17 at 1125, Until 06/06/17 | | | | | | | at 1251 | | | | | | + +-------+ +-------+---+---+ +---+---+ | | | +---+---+ + +-------+ +-------+---+---+ | esmolol (BREVIBLOC) injection | Given | 06/06/19 | 30 mg | | | | intravenous, INTRAPROCEDURE PRN, | | 18 12:23 | | | | | Starting 06/06/17 at 1226, | | PM PST | | | | | Until 06/06/17 at 1239 | | | | | | + +-------+ +-------+---+---+ +---+---+ | | | +---+---+ + +-------+ +--------+---+---+ | fentaNYL citrate (PF) | Given | 06/06/19 | 50 mcg | | | | (SUBLIMAZE) injection | | 18 12:55 | | | | | INTRAPROCEDURE PRN, Starting Tue | | PM PST | | | | | 06/06/17 at 1115, Until 06/06/17 | | | | | | | at 1239 | | | | | | + +-------+ +--------+---+---+ +-------+ +--------+---+---+ | Given | 06/06/19 | 50 mcg | | | | | 18 12:51 | | | | | | PM PST | | | | +-------+ +--------+---+---+ | Given | 06/06/19 | 50 mcg | | | | | 18 12:46 | | | | | | PM PST | | | | +-------+ +--------+---+---+ +---+---+ | | | +---+---+ + +-------+ +--------+---+---+ | glycopyrrolate (KEYSHAWN) | Given | 06/06/19 | 0.6 mg | | | | injection INTRAPROCEDURE PRN, | | 18 12:24 | | | | | Starting 06/06/17 at 1224, | | PM PST | | | | | Until 06/06/17 at 1239 | | | | | | + +-------+ +--------+---+---+ +---+---+ | | | +---+---+ + + + +---+---+---+ | lactated Ringers IV 10 mL/hr, | given by | 06/06/19 | | | | | intravenous, PROCEDURE | | 18 12:46 | | | | | CONTINUOUS, Starting 06/06/17 | anesthes | PM PST | | | | | at 0930, Until Mon06/06/17 at 2114 | iology | | | | | + + + +---+---+---+ + + +---+---+---+ | given by anesthesiology | 06/06/19 | | | | | | 18 12:20 | | | | | | PM PST | | | | + + +---+---+---+ | New Bag | 06/06/19 | | | | | | 18 11:44 | | | | | | AM PST | | | | + + +---+---+---+ +---+---+ | | | +---+---+ + +-------+ +-------+---+---+ | lidocaine PF (XYLOCAINE MPF) 20 | Given | 06/06/19 | 50 mg | | | | mg/mL (2 %) injection | | 18 10:54 | | | | | INTRAPROCEDURE PRN, Starting Tue | | AM PST | | | | | 06/06/17 at 1054, Until 06/06/17 | | | | | | | at 1239 | | | | | | + +-------+ +-------+---+---+ +---+---+ | | | +---+---+ + +-------+ +------+---+---+ | midazolam (VERSED) injection | Given | 06/06/19 | 2 mg | | | | INTRAPROCEDURE PRN, Starting Tue | | 18 10:41 | | | | | 06/06/17 at 1041, Until 06/06/17 | | AM PST | | | | | at 1239 | | | | | | + +-------+ +------+---+---+ +---+---+ | | | +---+---+ + +-------+ +------+---+---+ | neostigmine (PROSTIGMIN) | Given | 06/06/19 | 4 mg | | | | injection intravenous, | | 18 12:24 | | | | | INTRAPROCEDURE PRN, Starting Tue | | PM PST | | | | | 06/06/17 at 1224, Until 06/06/17 | | | | | | | at 1239 | | | | | | + +-------+ +------+---+---+ +---+---+ | | | +---+---+ + +-------+ +------+---+---+ | ondansetron (ZOFRAN) injection | Given | 06/06/19 | 4 mg | | | | INTRAPROCEDURE PRN, Starting Tue | | 18 12:27 | | | | | 18 at 1227, Until 06/06/17 | | PM PST | | | | | at 1239 | | | | | | + +-------+ +------+---+---+ +---+---+ | | | +---+---+ + +-------+ +---------+---+---+ | PHENYLEPHrine 100 mcg/mL IV | Given | 06/06/19 | 200 mcg | | | | syringe INTRAPROCEDURE PRN, | | 18 11:56 | | | | | Starting 06/06/17 at 1156, | | AM PST | | | | | Until 06/06/17 at 1239 | | | | | | + +-------+ +---------+---+---+ +-------+ +---------+---+---+ | Given | 06/06/19 | 100 mcg | | | | | 18 11:35 | | | | | | AM PST | | | | +-------+ +---------+---+---+ +---+---+ | | | +---+---+ + +-------+ +-------+---+---+ | propofol INTRAPROCEDURE PRN, | Given | 06/06/19 | 50 mg | | | | Starting 06/06/17 at 1054, | | 18 11:12 | | | | | Until 06/06/17 at 1239 | | AM PST | | | | + +-------+ +-------+---+---+ +-------+ +--------+---+---+ | Given | 06/06/19 | 50 mg | | | | | 18 11:02 | | | | | | AM PST | | | | +-------+ +--------+---+---+ | Given | 06/06/19 | 200 mg | | | | | 18 10:54 | | | | | | AM PST | | | | +-------+ +--------+---+---+ +---+---+ | | | +---+---+ + +-------+ +-------+---+---+ | rocuronium (ZEMURON) injection | Given | 06/06/19 | 30 mg | | | | INTRAPROCEDURE PRN, Starting Tue | | 18 11:09 | | | | | 06/06/17 at 1054, Until 06/06/17 | | AM PST | | | | | at 1239 | | | | | | + +-------+ +-------+---+---+ +-------+ +-------+---+---+ | Given | 06/06/19 | 50 mg | | | | | 18 10:54 | | | | | | AM PST | | | | +-------+ +-------+---+---+ +---+---+ | | | +---+---+ documented in this encounter"
--- OUTSIDE RECORDS SUMMARY | ~2019-09-30 | XMS | Encounter Summary ---
Demographics + + + | Address | [address] | | | [place] [address] | + + + | Home Phone | | + + + | Preferred Language | Unknown | + + + | Marital Status | Single | + + + | Moravian Affiliation | NRP | + + + [...] Team Providers + +------+ + | Care Life Coach Name | Role | Phone | + +------+ + PCP | Unavailable | + +------+ + Encounter Details +--------+ + + + + | Date | Type | Department | Care Team | Description | +--------+ + + + + | 09/29/ | ED Progress | [facility] | Cee Pizano, | ED Progress Note | | 2016 | | [address] | [address] [facility] | | | | Note-Transc | [place], [place] | [place], [place] | | | | sergio | [address] | [phone] | | | | | | | [...]
--- OUTSIDE RECORDS SUMMARY | ~2019-09-30 | XMS | Encounter Summary ---
Demographics + + + | Address | [address] | | | [place] [address] | + + + | Home Phone | | + + + | Preferred Language | Unknown | + + + | Marital Status | Single | + + + | Congregational Affiliation | NRP | + + + | Race | White | + + + | Ethnic Group | Not or | + + + Author + + + | Author | [facility] | + + + | Organization | [facility] | + + + | Address | Unknown | + + + | Phone | Unavailable | + + + Support + + +---------+ + | Name | Relationship | Address | Phone | + + +---------+ + | Liss Hughes | ECON | Unknown | | + + +---------+ + Care Team Providers + +------+ + | Care Starch Treating Assistant Name | Role | Phone | + +------+ + | Rudy Jamison MD | PCP | | + +------+ + Reason for Visit Intake Referral (Routine) +--------+--------+ + + + + | Status | Reason | Specialty | Diagnoses / | Referred By | Referred To | | | | | Procedures | Contact | Contact | +--------+--------+ + + + + | Closed | | Otolaryngolog | Diagnoses | Rubio, | Ent Sinus | | | | y | Epistaxis | Marisel Dumont, | [facility] [address] | | | | | | [employer] | [address] | | | | | | Rhonda | Mailcode: | | | | | | Community | [facility] | | | | | | [facility] | [facility] | | | | | | Center [address] | and Healing, | | | | | | [facility] [facility] | [address], | | | | | | [address] | 5th Floor | | | | | | [place], [place] | [place], [place] | | | | | | [address] | [address] | | | | | | Phone: | Phone: | | | | | | [phone] | [phone] | | | | | | Fax: | Fax: | | | | | | [phone] | [phone] | +--------+--------+ + + + + Encounter Details +--------+---------+ + + + | Date | Type | Department | Care Team | Description | +--------+---------+ + + + | 06/15/ | Office | [facility] | Jacob Espinal, | Lionel | | 2018 | Visit | Center at [facility] [address] | [address] | papilloma (Primary | | | | [address] | [address] | Dx); Pain | | | | Mailcode: [facility] | [facility] | | | | | [facility] | [place] [address] | | | | | and Healing, | [phone] | | | | | Building | | | | | | Floor [place], [place] | | | | | | [address] | | | | | | [phone] | | | +--------+---------+ + + + Social History + +-------+ +--------+ + | [...] + + documented as of this encounter Progress Notes Kylie HENDERSON, Jacob Mahmood - 06/15/2017 9:00 AM PSTFormatting of this note might be different fr om the original. [facility] HISTORY: Nayan Reid is a 52 y.o. male who presents to the [facility] for fol low up of Sinus Surgery. He is doing OK. Continue to have headache and right facial pain, similar to before surgery . Has been using rinses. Took abx. No ongoing bleeding. Current Outpatient Prescriptions Medication Sig IBUPROFEN ORAL Take by mouth. methylPREDNISolone (MEDROL (LIZA)) 4 mg oral tablets,dose pack Take by mouth daily with food: day 1=6 tablets, day 2=5 tablets, day 3=4 tablets, day 4=3 tablets, day 5=2 tablets, d ay 6=1 tablet. oxyCODONE-acetaminophen (PERCOCET) 5-325 mg oral tablet Take 1 tablet by mouth every si x hours as needed for severe pain. Not to exceed 10 tablets per any 24 hour period. PHYSICAL EXAM: Ear, nose, and throat exam reveals a pleasant, well-developed, well-nourish ed patient, in no apparent distress. Voice quality is within normal limits. Anterior rhinos copy reveals splints sutured in place - I removed these today. PROCEDURE: Diagnostic Nasal Endoscopy Anesthesia: Lidocaine 4% topical anesthetic was placed. Description of Procedure: A rigid endoscope was utilized to evaluate the sinonasal cavitie s, mucosa, sinus ostia and turbinates. Overall, the surgical site on the right side is heal ing well. Path: Final Pathologic Diagnosis A. 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 B. 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 We discussed the pathology and the importance of ongo ing surveillance moving forwards. He continues to have ongoing headache and facial pain. I do not think this is due to sinus disease based on his normal CT scan. The excisional procedure was short and is not typical ly associated with significant pain. I discussed that I could not in good conscience provide him with additional narcotics Today given concerns of fostering opiod dependence. This is particularly true given his co mments in the [place] last week. I offered him a referral to the pain center to explore non-narc otics and discuss opiod dependence, which he was interested in. Our office spoke with them today and the require a referral by his PCP, which the patient will seek. If this does not work, we could consider a neurology opinion for atypical facial pain. Follow up in 1 month with me. documented in this e ncounter Plan of Treatment Not on filedocumented as of this encounter Visit Diagnoses + + | Diagnosis | + + | Schneiderian papilloma - Primary | + + | Pain Generalized pain | + + documented in this encounter"
--- OUTSIDE RECORDS SUMMARY | ~2019-09-30 | XMS | Encounter Summary ---
Demographics + + + | Address | [address] | | | [place] [address] | + + + | Home Phone | | + + + | Preferred Language | Unknown | + + + | Marital Status | Single | + + + | Gnosticism Affiliation | NRP | + + + | Race | White | + + + | Ethnic Group | Not or | + + + Author + + + | Author | [facility] | + + + | Organization | [facility] | + + + | Address | Unknown | + + + | Phone | Unavailable | + + + Support + + +---------+ + | Name | Relationship | Address | Phone | + + +---------+ + | Liss Hughes | ECON | Unknown | | + + +---------+ + Care Team Providers + +------+ + | Care Software Reliability Engineer Name | Role | Phone | + +------+ + | Rudy Jamison MD | PCP | | + +------+ + Encounter Details +--------+ + + + + | Date | Type | Department | Care Team | Description | +--------+ + + + + | 06/06/ | Procedure | [facility] | | | | 2018 | Pass | [facility] | | | | | | and He[facility] Surgery | | | | | | Center Admitting | | | | | | Desk Located on the | | | | | | 4th floor [address] | | | | | | [address] [place], | | | | | | [place] [address] | | | +--------+ + + + [...]
--- OUTSIDE RECORDS SUMMARY | ~2019-09-30 | XMS | Encounter Summary ---
Demographics + + + | Address | [address] | | | [place] [address] | + + + | Home Phone | | + + + | Preferred Language | Unknown | + + + | Marital Status | Single | + + + | Roman Catholic Affiliation | NRP | + + + | Race | White | + + + | Ethnic Group | Not or | + + + Author + + + | Author | [facility] | + + + | Organization | [facility] | + + + | Address | Unknown | + + + | Phone | Unavailable | + + + Support + + +---------+ + | Name | Relationship | Address | Phone | + + +---------+ + | Liss Hughes | ECON | Unknown | | + + +---------+ + Care Team Providers + +------+ + | Care Accounts Receivable Accountant Name | Role | Phone | + [...] | Epistaxis | Marisel Dumont, | [address] [address] | | | | | | HEEL 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 INKER [employer]ACHINE | [address] | | | | | | Rhonda | Mailcode: | | | | | | Community | [facility] | | | | | | Health | for Health | | | | | | Center [address] | and Healing, | | | | | | [facility] [address] | Building 1, | | | | | | [address] | 5th Floor | | | | | | [place], [place] | [place], [place] | | | | | | [address] | [address] | | | | | | Phone: | Phone: | | | | | | [phone] | [phone] | | | | | | Fax: | Fax: | | | | | | [phone] | [phone] | +--------+--------+ + + + + Encounter Details +--------+---------+ + + + | Date | Type | Department | Care Team | Description | +--------+---------+ + + + | 06/15/ | Office | [facility] | Jacob Espinal, | Lionel | | 2018 | Visit | Center at [facility] [address] | [address] | papilloma (Primary | | | | [address] | [address] | Dx); Pain | | | | Mailcode: [facility] | OutPt Sujey | | | | | [facility] | [place] [address] | | | | | and Healing, | [phone] | | | | | Building | | | | | | Floor [place], [place] | | | | | | [address] | | | | | | [phone] | | | +--------+---------+ + + + [...] might be different fr om the original. [facility] HISTORY: Nayan Reid is a 52 y.o. male who presents to the [facility] for fol low up of [...]
--- OUTSIDE RECORDS SUMMARY | ~2019-09-30 | XMS | Encounter Summary ---
Demographics + + + | Address | [address] | | | [place] [address] | + + + | Home Phone | | + + + | Preferred Language | Unknown | + + + | Marital Status | Single | + + + | Islam Affiliation | NRP | + + + | Race | White | + + + | Ethnic Group | Not or | + + + Author + + + | Author | [facility] | + + + | Organization | [facility] | + + + | Address | Unknown | + + + | Phone | Unavailable | + + + Support + + +---------+ + | Name | Relationship | Address | Phone | + + +---------+ + | Liss Hughes | ECON | Unknown | | + + +---------+ + Care Team Providers + +------+ + | Care Journeyman Carpenter Name | Role | Phone | + +------+ + | Rudy Jamison MD | PCP | | + +------+ + Encounter Details +--------+ + + + + | Date | Type | Department | Care Team | Description | +--------+ + + + + | 05/18/ | Telephone | [facility] [place] [facility] | Emmanuelle Peter, | | | 2018 | | Center at [facility] [address] | [place] [address] | | | | | [address] | Ave [place], [place] | | | | | Mailcode: [place] | [address] | | | | | [facility] | [phone] | | | | | and Healing, | | | | | | Building | | | | | | Floor [place], [place] | | | | | | [address] | | | | | | [phone] | | | +--------+ + + + [...] Comments | + + +---------+ + | Yes | 2 Standard drinks | 2.0 | [...]
--- OUTSIDE RECORDS SUMMARY | ~2019-09-30 | XMS | Encounter Summary ---
Demographics + + + | Address | [address] | | | [place] [address] | + + + | Home Phone | | + + + | Preferred Language | Unknown | + + + | Marital Status | Single | + + + | Judaism Affiliation | NRP | + + + | Race | White | + + + | Ethnic Group | Not or | + + + Author + + + | Author | [facility] | + + + | Organization | [facility] | + + + | Address | Unknown | + + + | Phone | Unavailable | + + + Support + + +---------+ + | Name | Relationship | Address | Phone | + + +---------+ + | Liss Hughes | ECON | Unknown | | + + +---------+ + Care Team Providers + +------+ + | Care Immigration Judge Name | Role | Phone | + +------+ + | Rudy Jamison MD | PCP | | + +------+ + Reason for Referral PROC - Outpatient Surgery (Routine) +--------+---------+ + + + + | Status | Reason | Specialty | Diagnoses / | Referred By | Referred To | | | | | Procedures | Contact | Contact | +--------+---------+ + + + + | Closed | Coded | Otolaryngolog | Diagnoses | Rosemarieck, | Kylie, | | | | y | Neoplasm of | Jacob Mahmood MD | Jacob aMhmood MD | | | | | uncertain | [address] | | | | | behavior of | [address] | Court | | | | | other | [place] | | | | | respiratory | OutPt | OutPt | | | | | organs | [place] | | | | | Lesion of | [place] | [place] | | | | | nasal septum | [address] | [address] Phone: | | | | | Epistaxis | Phone: | | | | | | Deviated | | Fax: | | | | | nasal septum | Fax: | [phone] | | | | | Procedures | | | | | | | REQUEST TO | | | | | | | SURGERY | | | | | | | CARE MGR | | | | | | | MI NASAL | | | | | | | SCOPE,BX/RMV | | | | | | | | | | | | | | POLYP/DEBRID | | | | | | | MI | | | | | | | INTRANASAL | | | | | | | BIOPSY MI | | | | | | | EXCIS/DEST | | | | | | | INTRANAS | | | | | | | LESION; INT | | | | | | | THIERRY MI | | | | | | | ENDOSCOPIC | | | | | | | NASAL TUMOR | | | | | | | REMOVAL MI | | | | | | | REPAIR OF | | | | | | | NASAL SEPTUM | | | | | | | 90 global | | | +--------+---------+ + + + + Diagnostic Testing (Routine) +--------+--------+ + + + + | Status | Reason | Specialty | Diagnoses / | Referred By | Referred To | | | | | Procedures | Contact | Contact | +--------+--------+ + + + + | Closed | | Radiology | Diagnoses | Brittani, | Rad Ct Scan | | | | | Nasal mass | Emmanuelle Vega, | [facility] [address] | | | | | Procedures | PA-Edwin [address] | Richard Arndt | | | | | CT SINUS WO | [address] | [address] [facility] | | | | | CONTRAST | [place], [place] | Hospital, | | | | | ROUTINE | [address] | 10th Floor | | | | | ([facility] | Phone: | [place], [place] | | | | | PROTOCOL) | [phone] | [address] | | | | | [place] [address] | Fax: | Phone: | | | | | SCAN,MAXILLO | [phone] | [phone] | | | | | FACIAL | | Fax: | | | | | AREA,W/O | | [phone] | | | | | CONTRAST | | | +--------+--------+ + + + + Reason for Visit + + + | Reason | Comments | + + + | New Patient Visit | | + + + Intake Referral (Routine) +--------+--------+ + + + + | Status | Reason | Specialty | Diagnoses / | Referred By | Referred To | | | | | Procedures | Contact | Contact | +--------+--------+ + + + + | Closed | | Otolaryngolog | Diagnoses | Rubio, | [facility] | | | | y | Epistaxis | Marisel R, | [facility] [address] | | | | | | INCLUSION PARAEDUCATOR | [address] | | | | | | Rhonda | Mailcode: | | | | | | Community | [facility] | | | | | | Health | for Health | | | | | | [address] | and Healing, | | | | | | [facility] | Building 1, | | | | | | [address] | 5th Floor | | | | | | [place], [place] | [place], [place] | | | | | | [address] | [address] | | | | | | Phone: | Phone: | | | | | | [phone] | [phone] | | | | | | Fax: | Fax: | | | | | | [phone] | [phone] | +--------+--------+ + + + + Encounter Details +--------+---------+ + + + | Date | Type | Department | Care Team | Description | +--------+---------+ + + + | 05/17/ | Office | [facility] | Emmanuelle Peter, | Nasal mass (Primary | | 2018 | Visit | Center at [facility] [address] | PA-C [address] | Dx); Lesion of nasal | | | | [address] | Ave [place], [place] | septum | | | | Mailcode: [facility] | [address] | | | | | [facility] | [phone] | | | | | and Healing, | | | | | | Building 1, [facility] | | | | | | Floor [place], [place] | | | | | | [address] | | | | | | [phone] | | | +--------+---------+ + + + [...] + + documented as of this encounter Last Filed Vital Signs + + + + + | Vital Sign | Reading | Time Taken | Comments | + + + + + | Blood Pressure | 174/92 | 05/17/2017 11:46 AM | | | | | PST | | + + + + + | Pulse | 70 | 05/17/2017 11:46 AM | | | | | PST | | + + + + + | Temperature | - | - | | + + + + + | Respiratory Rate | - | - | | + + + + + | Oxygen Saturation | - | - | | + + + + + | Inhaled Oxygen | - | - | | | Concentration | | | | + + + + + | Weight | 108 kg (238 lb) | 05/17/2017 11:46 AM | | | | | PST | | + + + + + | Height | 182.9 cm (6') | 05/17/2017 11:46 AM | | | | | PST | | + + + + + | Body Mass Index | 32.28 | 05/17/2017 11:46 AM | | | | | PST | | + + + + + documented in this encounter Progress Notes Emmanuelle Peter PA-C - 05/17/2017 11:30 AM PST [facility] HPI: Nayan Reid is a 52 y.o. male who presents to the [facility] in consulta tion for Epistaxis. Current symptoms include nasal congestion, nasal discharge, headache, d ecreased visions, loss of taste, loss of smell, facial pain, facial pressure, epistaxis and right sided visual changes (blurred vision). He describes right sided epistaxis 3-4 times a week. These last about 15 minutes. He also endorsed night sweats, fevers and weight loss. S ymptoms began 4 weeks ago. Symptom severity is moderate. Improvement occurred with Nothing . Additional evaluation has not been done. He had a root canal on tooth #7 a couple of week s ago. He denies a history of liver disease or coagulopathies. He was recently treated with Flonase with no improvement to his symptoms. SINO NASAL OUTCOMES TEST SCORE: 91 Current Outpatient Prescriptions Medication Sig ACETAMINOPHEN (TYLENOL 8 HOUR ORAL) Take by mouth. IBUPROFEN ORAL Take by mouth. The patient's New Patient History Form was reviewed with the patient. Changes and addition s, where necessary, were made and the form was scanned to the medical record. Comprehensive review of systems was negative other than as documented on this note and on the New Patient History Form. Past Medical History: Diagnosis Date Reflux esophagitis Past Surgical History Procedure Laterality Date Hip replacement Foot surgery Family History Problem Relation Diabetes Brother Social History Substance Use Topics Smoking status: Former Smoker Quit date: 03/31/2016 Smokeless tobacco: Never Used Alcohol use 1.2 oz/week 2 Standard drinks or equivalent per week Allergies: Allergies Allergen Reactions Sulfa (Sulfonamide Antibiotics) Anaphylaxis Codeine Pruritus Filed Vitals: 05/17/2017 11:46 AM Height: 1.829 m (6') Weight: 108 kg (238 lb) BP: 174/92 Pulse: 70 PainSc: 08 - Very Severe PainLoc: Generalized BMI: 32.28 kg/(m^2) PHYSICAL EXAM: General Appearance: Pleasant, well-developed, well-nourished patient, in no apparent distre ss. Mental status normal. Breathing quietly, comfortably, no stridor or wheezing. Head/Face: No skin lesions, face symmetric, sensation normal Eyes: EOMI Ears: External ears normal to inspection and palpation, canals clear, TM's intact, no middl e ear effusion. Nose: Anterior rhinoscopy reveals mucosal edema. Nasal endoscopy was indicated to better ev aluate the nose and paranasal sinuses given the patient's history and exam findings and is d etailed below. Oral Cavity/Pharynx: No masses or lesions of lips, gums, tongue, floor of mouth, buccal muc yumiko, hard palate or soft palate. Dentition is good. No erythema, exudate, or tonsillar catherine s. Posterior pharyngeal wall normal. Neck/Lymphatic: no masses or adenopathy Neurologic: CN 2-12 intact PROCEDURE: Diagnostic Nasal Endoscopy Anesthesia: Lidocaine 4% topical anesthetic was placed. Description of Procedure: A rigid endoscope was utilized to evaluate the sinonasal cavities , mucosa, sinus ostia and turbinates. Overall, signs of mucosal inflammation are noted. Al so noted are papillomatous lesion arising from the right septum tracking posteriorly. No corie dence of perforation Nasal endoscopy of the righ tnasal passageay RADIOGRAPHIC EVALUATION: A current CT was reviewed which reveals overall well ventilated si nuses. There is a significant righward septal deviation. Soft tissue mass noted in the right anterior passageway arising from the septum. No evidence of erosion. 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 We've discussed issues and options today. The risks, benefits and alternatives were discus sed and questions answered. He has elected to proceed with endoscopic sinus surgery for the following indications: excisional biopsy. I reviewed his case with Dr. Espinal who has agr eed to take the patient to the OR for an excisional biopsy. The patient comes from [place] and preferred to have a pre anesthesia visit over the phone and meet with Dr. Espinal the da y before his surgery to avoid duplicate trips. The role of nasal/sinus surgery was discussed. Risks including anesthetic, bleeding, infec tion, olfactory dysfunction, recurrence of symptoms, and injury to associated structures inc luding the orbit and cranial cavity, among others, were discussed and all questions answered . The need for postoperative care including debridement and ongoing medical management was discussed. The patient will consider risks, benefits and alternatives. He requested pain medication at the end of his visit today. He was given 5 oxycodone, but I explained we would not be able to provide additional pain medication prior to his procedure . We will be prescribing post op pain medication that will be dispensed the morning of surge ry. documented in this encounter Plan of Treatment Not on filedocumented as of this encounter Procedures + +--------+ + + + | Procedure Name | Priori | Date/Time | Associated Diagnosis | Comments | | | ty | | | | + +--------+ + + + | MI NASAL | Routin | 05/18/2017 | Lesion of nasal | | | ENDOSCOPY,DX | e | 4:22 PM | septum | | | | | PST | | | + +--------+ + + + documented in this encounter Results CT SINUS WO CONTRAST ROUTINE ([facility] PROTOCOL) (05/17/2017 1:06 PM PST) + + | Specimen | + + | | + + + + + | Narrative | Performed At | + + + | EXAM: CT SINUS WITHOUT CONTRAST HISTORY: Sinonasal obstruction, | [facility] | | mass is suspected. COMPARISON: None TECHNIQUE: Axial | RADIOLOGY VOICE | | noncontrast CT of the paranasal sinuses, including sagittal and | RECOGNITION | | coronal reformations. FINDINGS: Paranasal Sinuses: Clear | | | Nasal septum: Rightward deviation of the nasal septum, with bone spur | | | contacting the inferior turbinate. Soft tissues: Unremarkable | | | Visualized brain and skull: Unremarkable. Orbits: Globes | | | unremarkable. No fractures or masses. There is a nodular soft | | | tissue density lesion partially occluding the superior aspect of the | | | right nose vestibule, apparently connected to the nasal septum. | | | IMPRESSION: 1. Rightward nasoseptal deviation. 2. Soft tissue | | | lesion in the superior aspect of the right nose vestibule, apparently | | | connected to the septum mucosa, most likely representing a polyp. | | | I have personally reviewed the images and, if necessary, edited the | | | report. I agree with the report as now presented. | | + + + + + | Procedure Note | + + | Service Account, Radiant Res In Interface - 05/17/2017 2:11 PM PST EXAM: CT SINUS | | WITHOUT CONTRASTHISTORY: Sinonasal obstruction, mass is suspected.COMPARISON: | | NoneTECHNIQUE: Axial noncontrast CT of the paranasal sinuses, including sagittal and | | coronal reformations.FINDINGS: Paranasal Sinuses: ClearNasal septum: Rightward | | deviation of the nasal septum, with bone spur contacting the inferior turbinate. Soft | | tissues: Unremarkable Visualized brain and skull: Unremarkable. Orbits: Globes | | unremarkable. No fractures or masses. There is a nodular soft tissue density lesion | | partially occluding the superior aspect of the right nose vestibule, apparently | | connected to the nasal septum.IMPRESSION:1. Rightward nasoseptal deviation.2. Soft | | tissue lesion in the superior aspect of the right nose vestibule, apparently connected | | to the septum mucosa, most likely representing a polyp.I have personally reviewed the | | images and, if necessary, edited the report. I agree with the report as now presented. | | Visualized brain and skull: Unremarkable. | | Orbits: Globes unremarkable. No fractures or masses. | | There is a nodular soft tissue density lesion partially occluding the superior aspect of the right nose vestibule, apparently connected to the nasal septum. | | | | | |IMPRESSION: | | | |1. Rightward nasoseptal deviation. | |2. Soft tissue lesion in the superior aspect of the right nose vestibule, apparently connec shell to the septum mucosa, most likely representing a polyp. | | | | | |I have personally reviewed the images and, if necessary, edited the report. I agree with t juice report as now presented. | + + + +---------+ + + | Performing | Address | City/State/Zipcode | Phone Number | | Organization | | | | + +---------+ + + | [facility] | | | | | VOICE RECOGNITION | | | | + +---------+ + + documented in this encounter Visit Diagnoses + + | Diagnosis | + + | Nasal mass - Primary Swelling, mass, or lump in head and neck | + + | Lesion of nasal septum | + + documented in this encounter"
--- OUTSIDE RECORDS SUMMARY | ~2019-09-30 | XMS | Encounter Summary ---
Demographics + + + | Address | [address] | | | [place] [address] | + + + | Home Phone | | + + + | Preferred Language | Unknown | + + + | Marital Status | Single | + + + | Worship Affiliation | NRP | + + + | Race | White | + + + | Ethnic Group | Not or | + + + Author + + + | Author | [facility] | + + + | Organization | [facility] | + + + | Address | Unknown | + + + | Phone | Unavailable | + + + Support + + +---------+ + | Name | Relationship | Address | Phone | + + +---------+ + | Liss Hughes | ECON | Unknown | | + + +---------+ + Care Team Providers + +------+ + | Care Customer Service Clerk Name | Role | Phone | + +------+ + | Rudy Jamison MD | PCP | | + +------+ + Encounter Details +--------+ + + + + | Date | Type | Department | Care Team | Description | +--------+ + + + + | 05/18/ | Telephone | [place] [facility] | Emmanuelle Peter, | | | 2018 | | Center at [facility] [address] | [place] [address] | | | | | [address] | Ave [place], [place] | | | | | Mailcode: [place] | [address] | | | | | [facility] | [phone] | | | | | and Healing, | | | | | | Building | | | | | | Floor [place], [place] | | | | | | [address] | | | | | | [phone] | | | +--------+ + + + [...]
--- OUTSIDE RECORDS SUMMARY | ~2019-09-30 | XMS | Encounter Summary ---
Demographics + + + | Address | [address] | | | [place] [address] | + + + | Home Phone | | + + + | Preferred Language | Unknown | + + + | Marital Status | Single | + + + | Sabianist Affiliation | NRP | + + + [...] Team Providers + +------+ + | Care Strategy Consultant Name | Role | Phone | + +------+ + PCP | Unavailable | + +------+ + Encounter Details +--------+ + + + + | Date | Type | Department | Care Team | Description | +--------+ + + + + | 01/12/ | Results | Epic at [facility] | Darrion Engel | | | 2016 | Only | [address] [facility] Izabela Gómez MD [address] [facility] | | | | | [place], [place] | [facility] | | | | | [address] | [place], [place] | | | | | | [address] | | | | | | [phone] | | | | | | | [...] | + +--------+ + + + | X-RAY HIP 2 VIEWS | Routin | 01/13/2016 | | Results for this | | LEFT W/ PELVIS 1 | e | 1:31 PM | | procedure are in the | | VIEW | | PDT | | results section. | + +--------+ + + + documented in this encounter Results X-RAY HIP 2 VIEWS LEFT W/ PELVIS 1 VIEW (01/13/2016 1:31 PM PDT) + + | Specimen | + + | | + + + + + | Narrative | Performed At | + + + | DIAGNOSTICS: Films of the hip from 12/28/2015 are AP and | [facility] | | lateral of the left hip that show a little narrowing of the joint | RADIOLOGY | | space medially but good joint space superiorly. The head has a | | | molted appearance and findings consistent with probable AVN, | | | though no collapse. CT is of the left hip and shows areas of | | | sclerosis and change of density beginning of the superior aspect | | | of the head with just a trace of depression and findings | | | consistent with AVN, per report. Today, AP of the pelvis and lateral | | | left hip show subtle findings of AVN at both hips with joint | | | spaces maintained and no collapse superiorly. | | + + + + + | Procedure Note | + + | Interface, Lab Results [place] - 02/14/2017 8:22 AM PDT DIAGNOSTICS:Films of the hip | | from 12/28/2015 are AP and lateral of the left hip that show a little narrowing of | | thejoint space medially but good joint space superiorly. The head has a | | moltedappearance and findings consistent with probable AVN, though no collapse. CT isof | | the left hip and shows areas of sclerosis and change of density beginning ofthe | | superior aspect of the head with just a trace of depression and findingsconsistent with | | AVN, per report. Today, AP of the pelvis and lateral left hipshow subtle findings of | | AVN at both hips with joint spaces maintained and nocollapse superiorly. | |appearance and findings consistent with probable AVN, though no collapse. CT is | | | |of the left hip and shows areas of sclerosis and change of density beginning of | | | |the superior aspect of the head with just a trace of depression and findings | | | |consistent with AVN, per report. Today, AP of the pelvis and lateral left hip | | | |show subtle findings of AVN at both hips with joint spaces maintained and no | | | |collapse superiorly. | + + + + + + + | Performing | Address | City/State/Zipcode | Phone Number | | Organization | | | | + + + + + | [facility] | [address] | [place], [place] | [phone] | | | | [address] | | + + + + + documented in this encounter Visit Diagnoses Not on filedocumented in this encounter"
--- OUTSIDE RECORDS SUMMARY | ~2019-09-30 | XMS | Encounter Summary ---
Demographics + + + | Address | [address] | | | [place] [address] | + + + | Home Phone | | + + + | Preferred Language | Unknown | + + + | Marital Status | Single | + + + | Quaker Affiliation | NRP | + + + [...] Team Providers + +------+ + | Care Caterpillar Operator Name | Role | Phone | [...] | [address] | [address] [facility] | | | | Note-Transc | [place], [place] | [place], [place] | | | | sergio | [address] | [phone] | | | | | | | [...]
--- OUTSIDE RECORDS SUMMARY | ~2019-09-30 | XMS | Encounter Summary ---
Demographics + + + | Address | [address] | | | [place] [address] | + + + | Home Phone | | + + + | Preferred Language | Unknown | + + + | Marital Status | Single | + + + | Church Affiliation | NRP | + + + [...] Team Providers + +------+ + | Care Slasher Machine Operator Name | Role | Phone | [...] [facility] | | | | Note-Transc | [place], [place] | [facility] | | | | ribed | [address] | [address] | | | | | | [place] [address] | | | | | | [phone] | | | | | | | [...]
--- OUTSIDE RECORDS SUMMARY | ~2019-09-30 | XMS | Encounter Summary ---
Demographics + + + | Address | [address] | | | [place] [address] | + + + | Home Phone | | + + + | Preferred Language | Unknown | + + + | Marital Status | Single | + + + | Yazdanism Affiliation | NRP | + + + | Race | White | + + + | Ethnic Group | Not or | + + + Author + + + | Author | [facility] | + + + | Organization | [facility] | + + + | Address | Unknown | + + + | Phone | Unavailable | + + + Support + + +---------+ + | Name | Relationship | Address | Phone | + + +---------+ + | Liss Hughes | ECON | Unknown | | + + +---------+ + Care Team Providers + +------+ + | Care Membership Director Name | Role | Phone | + +------+ + | Rudy Jamison MD | PCP | | + +------+ + Encounter Details +--------+ + + + + | Date | Type | Department | Care Team | Description | +--------+ + + + + | 05/17/ | Pharmacy | [facility] | | | | 2018 | Visit | & [facility] | | | | | | [address] | | | | | | Mailcode: [place] | | | | | | [facility] | | | | | | Healing, [address] | | | | | | [place], [place] | | | | | | [address] | | | | | | [phone] | | | +--------+ + + + [...]
--- OUTSIDE RECORDS SUMMARY | ~2019-09-30 | XMS | Encounter Summary ---
Demographics + + + | Address | [address] | | | [place] [address] | + + + | Home Phone | | + + + | Preferred Language | Unknown | + + + | Marital Status | Single | + + + | Oriental Orthodox Affiliation | NRP | + + + | Race | White | + + + | Ethnic Group | Not or | + + + Author + + + | Author | [facility] | + + + | Organization | [facility] | + + + | Address | Unknown | + + + | Phone | Unavailable | + + + Support + + +---------+ + | Name | Relationship | Address | Phone | + + +---------+ + | Liss Hughes | ECON | Unknown | | + + +---------+ + Care Team Providers + +------+ + | Care Meat Cutting Teacher Name | Role | Phone | + +------+ + | Rudy Jamison MD | PCP | | + +------+ + Reason for Visit + + + | Reason | Comments | + + + | Question | | + + + Encounter Details +--------+ + + + + | Date | Type | Department | Care Team | Description | +--------+ + + + + | 05/18/ | Telephone | [place] [facility] | Emmanuelle Peter, | Question | | 2017 | | Center at [facility] [address] | PA-C [address] | | | | | [address] | [place], [place] | | | | | Mailcode: [id number] | [address] | | | | | [facility] | [phone] | | | | | and Gabriela, | | | | | | [facility] | | | | | | [place], [place] | | | | | | [address] | | | | | | [phone] | | | +--------+ + + + [...]
--- OUTSIDE RECORDS SUMMARY | ~2019-09-30 | XMS | Encounter Summary ---
Demographics + + + | Address | [address] | | | [place] [address] | + + + | Home Phone | | + + + | Preferred Language | Unknown | + + + | Marital Status | Single | + + + | Latter Day Affiliation | NRP | + + + | Race | White | + + + | Ethnic Group | Not or | + + + Author + + + | Author | [facility] | + + + | Organization | [facility] | + + + | Address | Unknown | + + + | Phone | Unavailable | + + + Support + + +---------+ + | Name | Relationship | Address | Phone | + + +---------+ + | Liss Hughes | ECON | Unknown | | + + +---------+ + Care Team Providers + +------+ + | Care Armor Officer Name | Role | Phone | + +------+ + | Rudy Jamison MD | PCP | | + +------+ + Encounter Details +--------+ + + + + | Date | Type | Department | Care Team | Description | +--------+ + + + + | 05/17/ | Pharmacy | [facility] | | | | 2018 | Visit | & [facility] | | | | | | [address] | | | | | | Mailcode: [place] | | | | | | [facility] | | | | | | Healing, [address] | | | | | | [place], [place] | | | | | | [address] | | | | | | [phone] | | | +--------+ + + + [...]
--- OUTSIDE RECORDS SUMMARY | ~2019-09-30 | XMS | Encounter Summary ---
Demographics + + + | Address | [address] | | | [place] [address] | + + + | Home Phone | | + + + | Preferred Language | Unknown | + + + | Marital Status | Single | + + + | Jain Affiliation | NRP | + + + [...] Team Providers + +------+ + | Care Lacquer Maker Name | Role | Phone | + +------+ + | Rudy Jamison MD | PCP | | + +------+ + Reason for Referral Consultation (Routine) +--------+--------+ + + + + | Status | Reason | Specialty | Diagnoses / | Referred By | Referred To | | | | | Procedures | Contact | Contact | +--------+--------+ + + + + | Closed | | Pain | Diagnoses | Kylie, | Case Loader Operator [facility] | | | | Management | Post-op | Jacob Mahmood MD | [address] | | | | | pain | [address] | | | | | Chronic | [address]zy | Mailcode: | | | | | ethmoidal | [place] | [facility] | | | | | sinusitis | OutPt | for Health | | | | | Procedures | [place] | and Healing, | | | | | CONSULT TO | [place], [place] | Building | | | | | PAIN | [address] | 1,15th Floor | | | | | MANAGEMENT | Phone: | [place], [place] | | | | | | [phone] | [address] | | | | | | Fax: | Phone: | | | | | | [phone] | [phone] | | | | | | | Fax: | | | | | | | [phone] | +--------+--------+ + + + + Reason for Visit + + + | Reason | Comments | + + + | Question | | + + + Encounter Details +--------+ + + + + | Date | Type | Department | Care Team | Description | +--------+ + + + + | 06/07/ | Telephone | [facility] | Jacob Espinal, | Question | | 2018 | | Center at [facility] [address] | [address] | | | | | [address] | [address] | | | | | Mailcode: [place] | [address] | | | | | [facility] | [place] [address] | | | | | and [facility], | [phone] | | | | | Building | | | | | | Floor [place], [place] | | | | | | [address] | | | | | | [phone] | | | +--------+ + + + [...] + | Diagnosis | + + | Post-op pain - Primary Other acute postoperative pain | + + | Chronic ethmoidal sinusitis | + + documented in this encounter"
--- OUTSIDE RECORDS SUMMARY | ~2019-09-30 | XMS | Encounter Summary ---
Demographics + + + | Address | [address] | | | [place] [address] | + + + | Home Phone [...] Author + + + | Author | [facility] | + + + | Organization | [facility] | + + + | Address | Unknown | + + + | Phone | Unavailable | + + + Support + + +---------+ + | Name | Relationship | Address | Phone | + + +---------+ + | Liss Hughes | ECON | Unknown | | + + +---------+ + Care Team Providers + +------+ + | Care Assignment Manager Name | Role | Phone | + +------+ + | Rudy Jamison MD | PCP | | + +------+ + Encounter Details +--------+ + + + + | Date | Type | Department | Care Team | Description | +--------+ + + + + | 06/06/ | Procedure | [facility] | | | | 2018 | Pass | [facility] | | | | | | and Healing Surgery | | | | | | Center Admitting | | | | | | Desk Located on the | | | | | | 4th floor [address] | | | | | | [address] [place] [place], | | | | | | [place] [address] | | | +--------+ + + + [...]
--- OUTSIDE RECORDS SUMMARY | ~2019-09-30 | XMS | Encounter Summary ---
Demographics + + + | Address | [address] | | | [place] [address] | + + + | Home Phone | | + + + | Preferred Language | Unknown | + + + | Marital Status | Single | + + + | Alevism Affiliation | NRP | + + + [...] Team Providers + +------+ + | Care German Tutor Name | Role | Phone | + +------+ + PCP | Unavailable | + +------+ + Encounter Details +--------+ + + + + | Date | Type | Department | Care Team | Description | +--------+ + + + + | 12/31/ | ED Progress | [facility] at [facility] | Malachi Michael MD | ED Progress Note | | 2016 | | [address] | [address] [facility] | | | | Note-Transc | [place], [place] | [address] | | | | ribchilo | [address] | [place], [place] | | | | | | [address] | | | | | | [phone] | | | | | | | [...]
--- OUTSIDE RECORDS SUMMARY | ~2019-09-30 | XMS | Encounter Summary ---
Demographics + + + | Address | [address] | | | [place] [address] | + + + | Home Phone | | + + + | Preferred Language | Unknown | + + + | Marital Status | Single | + + + | Jew Affiliation | NRP | + + + [...] Team Providers + +------+ + | Care Materials Management Supervisor Name | Role | Phone | + +------+ + PCP | Unavailable | + +------+ + Encounter Details +--------+ + + + + | Date | Type | Department | Care Team | Description | +--------+ + + + + | 09/29/ | Results | Epic at [facility] | Cee Pizano, | | | 2015 | Only | [address] | MD [facility] | | | | | [place], [place] | [place], [place] | | | | | [address] | [address] | | | | | | | [...] + +--------+ + + + | X-RAY KNEE 4+ VIEWS | Routin | 09/30/2015 | | Results for this | | RIGHT - [facility] | e | 11:42 AM | | procedure are in the | | RADIOLOGY PERFORMED | | PDT | | results section. | + +--------+ + + + documented in this encounter Results X-RAY KNEE 4+ VIEWS RIGHT - [facility] PERFOR[facility] (09/30/2015 11:42 AM PDT) + + | Specimen | + + | | + + + + + | Narrative | Performed At | + + + | EXAM DESCRIPTION:XR KNEE 4+ VIEWS RIGHTCLINICAL HISTORY:Acute | [facility] | | injury.COMPARISON:None.TECHNIQUE:Four image(s).FINDINGS:Osseous | RADIOLOGY | | structures appear normal. There is no evidence of fracture, | | | subluxation, or dislocation.There is normal mineralization. There is | | | no joint effusion.IMPRESSION:Negative. | | + + + + + | Procedure Note | + + | Interface, Lab Results [place] - 02/14/2017 9:19 AM PDT EXAM DESCRIPTION:XR KNEE 4+ | | VIEWS RIGHTCLINICAL HISTORY:Acute injury.COMPARISON:None.TECHNIQUE:Four | | image(s).FINDINGS:Osseous structures appear normal. There is no evidence of fracture, | | subluxation, or dislocation.There is normal mineralization. There is no joint | | effusion.IMPRESSION:Negative. | + + + + + + + | Performing | Address | City/State/Zipcode | Phone Number | | Organization | | | | + + + + + | [facility] | [address] | [place], [place] | [phone] | | | | [address] | | + + + + + documented in this encounter Visit Diagnoses Not on filedocumented in this encounter"
--- OUTSIDE RECORDS SUMMARY | ~2019-09-30 | XMS | Encounter Summary ---
Demographics + + + | Address | [address] | | | [place] [address] | + + + | Home Phone | | + + + | Preferred Language | Unknown | + + + | Marital Status | Single | + + + | Sabianism Affiliation | NRP | + + + [...] Team Providers + +------+ + | Care Abrasive Grinder Name | Role | Phone | + +------+ + PCP | Unavailable | + +------+ + Encounter Details +--------+ + + + + | Date | Type | Department | Care Team | Description | +--------+ + + + + | 09/29/ | Results | Epic at [facility] | Cee Pizano, | | | 2015 | Only | [address] | MD [facility] | | | | | [place], [place] | [place], [place] | | | | | [address] | [address] | | | | | | | [...] RADIOLOGY | [address] | [place], [place] | [phone] | | | | [address] | | + + + + + documented in this encounter Visit Diagnoses Not on filedocumented in this encounter"
--- OUTSIDE RECORDS SUMMARY | ~2019-09-30 | XMS | Encounter Summary ---
Demographics + + + | Address | [address] | | | [place] [address] | + + + | Home Phone [...] Author + + + | Author | [facility] | + + + | Organization | [facility] | + + + | Address | Unknown | + + + | Phone | Unavailable | + + + Support + + +---------+ + | Name | Relationship | Address | Phone | + + +---------+ + | Liss Hughes | ECON | Unknown | | + + +---------+ + Care Team Providers + +------+ + | Care Squeezer Operator Name | Role | Phone | [...] | Anesthesia | [facility] | Peral Dominguez | | | 2018 | Event | [facility] | MD [address] | | | | | and Healing Surgery | [address] | | | | | Center Admitting | [place], [place] | | | | | Desk Located on the | [address] | | | | | 4th floor [address] | [phone] | | | | | [address] [place], | | | | | | [place] [address] | | | +--------+ + + + [...] III By Carrington Jessica 2nd attempt - [facility] 3 readjusted | | | head and [...]
--- OUTSIDE RECORDS SUMMARY | ~2019-09-30 | XMS | Encounter Summary ---
Demographics + + + | Address | [address] | | | [place] [address] | + + + | Home Phone | | + + + | Preferred Language | Unknown | + + + | Marital Status | Single | + + + | Restoration Affiliation | NRP | + + + | Race | White | + + + | Ethnic Group | Not or | + + + Author + + + | Author | [facility] | + + + | Organization | [facility] | + + + | Address | Unknown | + + + | Phone | Unavailable | + + + Support + + +---------+ + | Name | Relationship | Address | Phone | + + +---------+ + | Liss Hughes | ECON | Unknown | | + + +---------+ + Care Team Providers + +------+ + | Care Community Service Director Name | Role | Phone | + +------+ + | Rudy Jamison MD | PCP | | + +------+ + Reason for Referral Diagnostic Testing (Routine) +--------+--------+ + + + [...] Nasal mass | Emmanuelle Vega, | [facility] [address] | | | | | Procedures | PA-C [address] | [address] | | | | | CT SINUS WO | [address] | Holly [address] | | | | | CONTRAST | [place], [place] | Hospital, | | | | | ROUTINE | [address] | 10th Floor | | | | | ([place] | Phone: | [place], [place] | | | | | PROTOCOL) | [phone] | [address] | | | | | [address] | Fax: | Phone: | | | | | SCAN,MAXILLO | [phone] | [phone] | | | | | FACIAL | | Fax: | | | | | AREA,W/O | | [phone] | | | | | CONTRAST | | | +--------+--------+ + + + + Reason for Visit Diagnostic Testing (Routine) +--------+--------+ + + + [...] SINUS WO | [address] | Holly Valle [facility] | | | | | CONTRAST | [place], [place] | Hospital, | | | | | ROUTINE | [address] | 10th Floor | | | | | ([place] | Phone: | [place], [place] | | | | | PROTOCOL) | [phone] | [address] | | | | | [address] | Fax: | Phone: | | | | | SCAN,[place]ILLO | [phone] | [phone] | | | | | FACIAL | | Fax: | | | | | AREA,W/O | | [phone] | | | | | CONTRAST | | | +--------+--------+ + + + + Encounter Details +--------+ + + + + | Date | Type | Department | Care Team | Description | +--------+ + + + + | 05/17/ | Hospital | Radiology/Imaging | Emmanuelle Peter, | | | 2018 | Encounter | Lab at [facility] [address] | PA-C [address] | | | | | [address] Mailcode: | [place], [place] | | | | | [facility] | [address] | | | | | Health and Healing, | [phone] | | | | | [address] | | | | | | Floor [facility] [place] | | | | | | [address] | | | | | | [phone] | | | +--------+ + + + [...] + + documented as of this encounter Medications at Time of Discharge + + + +---------+ + + | Medication | Sig | Dispensed | Refills | Start | End Date | | | | | | Date | | + + + +---------+ + + | IBUPROFEN ORAL | Take by mouth. | | 0 | | | + + + +---------+ + + | methylPREDNISolone | Take by mouth daily | 21 | 0 | 05/17/19 | | | (MEDROL (LIZA)) 4 mg | with food: day 1=6 | tablet | | 18 | | | oral tablets,dose | tablets, day 2=5 | | | | | | pack | tablets, day 3=4 | | | | | | | tablets, day 4=3 | | | | | | | tablets, day 5=2 | | | | | | | tablets, day 6=1 | | | | | | | tablet. | | | | | + + + +---------+ + + documented as of this encounter Plan of Treatment Not on filedocumented as of this encounter Procedures + +--------+ + + + | Procedure Name | Priori | Date/Time | Associated Diagnosis | Comments | | | ty | | | | + +--------+ + + + | CT SINUS WO CONTRAST | Routin | 05/17/2017 | Nasal mass | Results for this | | ROUTINE | e | 1:06 PM | | procedure are in the [...] edited the report. I agree with t he report as now presented. | + + [...] Diagnosis | + + | Nasal mass Swelling, mass, or lump in head and neck | + + documented in this encounter"
--- OUTSIDE RECORDS SUMMARY | ~2019-09-30 | XMS | Encounter Summary ---
Demographics + + + | Address | [address] | | | [place] [address] | + + + | Home Phone | | + + + | Preferred Language | Unknown | + + + | Marital Status | Single | + + + | Mu-Ism Affiliation | NRP | + + + | Race | White | + + + | Ethnic Group | Not or | + + + Author + + + | Author | [facility] | + + + | Organization | [facility] | + + + | Address | Unknown | + + + | Phone | Unavailable | + + + Support + + +---------+ + | Name | Relationship | Address | Phone | + + +---------+ + | Liss Hughes | ECON | Unknown | | + + +---------+ + Care Team Providers + +------+ + | Care Java Programming Professor Name | Role | Phone | [...] | +--------+ + + + + | 07/11/ | Telephone | [place] [facility] | Jcaob Espinal, | Question | | 2017 | | Center at [facility] [address] | [address] | | | | | [address] | [address] | | | | | Mailcode: [place] [address] | | | | | [facility] | [place] [address] | | | | | and [address]riela, | [phone] | | | | | Building | | | | | | Floor [place], [place] | | | | | | [address] | | | | | | [phone] | | | +--------+ + + + [...]
--- OUTSIDE RECORDS SUMMARY | ~2019-09-30 | XMS | Encounter Summary ---
Demographics + + + | Address | [address] | | | [place] [address] | + + + | Home Phone | | + + + | Preferred Language | Unknown | + + + | Marital Status | Single | + + + | Catholic Affiliation | NRP | + + [...] Team Providers + +------+ + | Care Boardinghouse Keeper Name | Role | Phone | + +------+ + PCP | Unavailable | + +------+ + Encounter Details +--------+ + + + + | Date | Type | Department | Care Team | Description | +--------+ + + + + | 01/12/ | Office | [facility] at [facility] | Darrion Engel | Progress Note | | 2015 | Visit-Trans | [address] | MD Dalia [address] [facility] [address] | | | | rhea | [place], [place] | [facility] | | | | | [address] | [place], [place] | | | | | | [address] | | | | | | [phone] | | | | | | | [...] documented as of this encounter Progress Notes Darrion Engel MD - 01/02/2017 4:13 PM [facility] BOBBY REID MD : 01/13/2016 Acct. No.: [id number] EVALUATIONThe patient is being seen, just recently obtaining a primary physician [facility], hav ing moved here about 3 weeks ago related to anew job. He is from [place] and has been seen there with a problem withavascular necrosis of the left femoral head.CHIEF COMPLAINTLeft hi p pain.HISTORY OF PRESENT ILLNESSThe patient really denies any major problem with the left h ip until he had a fallfrom a ladder in July of this year. There has notbeen any back probl em. Hewas seen where he was living at the time in [place] and had radiographs that didnot show any fracture, and subsequently a CT to better evaluate the acetabulumfor possible fract ure and note of avascular necrosis of the left femoral headwith moderate degenerative joint disease of the left hip. This report is dated12/28/2015. He has now moved to the area. 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 He has crutches due to the pain. I am not sure how he will managegoing to work tomorrowwith his situation, but he is going to try. He has takensome p ain medication for a dental problem but not anything specificallyprescribed for his hip. He complains of pain, primarily lateral, that radiatesto the groin area of the hip. The other hip is fine. There has been restrictionof motion and functional disability and has the cru tches that he uses roving department end finder.His medical information sheet indicates he is age 50. He has h ad his symptomsfor the past 3 months subsequent to the fall as noted. He is progressivelyge tting worse. No therapy. Though he indicates an MRI was done, I do not seearecord of this but rather the note of the CT, as well as the CT in the computer.He denies any major medical problems. 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 He is not on any blood thinners. The foot shay rgery was in 2012 and washis only surgery. He has taken ibuprofen and oxycodone and indicat es he just gotthe oxycodone for dental problems from [facility] as he is beginning ar oot canal and apparently there is an infection, and he is on amoxicillin.ALLERGIESSULFA CAUS ES HIVES AND SHORTNESS OF BREATH.SOCIAL HISTORYHe is single. 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 He d oes not use tobacco or medicalmarijuana. He will have 1 or 2 beers a week.FAMILY HISTORYBro ther with diabetes.REVIEW OF SYSTEMSA 12-systems review, including vitals, show 150/95 blood pressure, pulse 93,weight 106.3 kg, height 184 cm. Heindicates 6-8/10 hip pain. He indica tesproblems walking, loss of balance, joint stiffness, GI for nausea, anxiety, andother syst ems negative.PHYSICAL EXAMINATIONGENERAL: The patient has complaints of hip pain and has cr utches. No acutedistress. Weight is noted. He walks with a limp.LUNGS: Noshortness of br eath. Lungs are clear to auscultation.HEART: Regular rate.ABDOMEN: Nontender.MUSCULOSKELE KARISSA: He has an old scar of the left knee from some lacerations orsports injuries in the pas t. He has tattoos of the right leg. He has slightextension lag of the left knee without ef fusion orincreased warmth. Decreasedmotion of the hip but retains fairly good internal and external rotation withpain at extremes of such. The motion may be related to his pain. He has 5/5muscle strength in the lower extremities. No muscle wasting. Neurovascularchecks of the leg intact. In decipheringthe tenderness, he is tender of thetrochanteric area of the left hip and to some extent the groin area. He deniesany tenderness to palpation of the kareen k. Trendelenburg test cannot be assesseddue to difficulty standing on that leg. Compartmen ts are soft. No masses areappreciated with palpation of the groin area.DIAGNOSTICSDiagnosti cs from the computer have indicated knee films that have not shown anysignificant degenerati ve changes with last knee films of the right knee from09/30/[address] [facility] are negative. Films of the hip from12/28/2015 are AP and lateral of the left hip that s how a little narrowing of thejoint space medially but good joint space superiorly. The head has a moltedappearance and findings consistent with probable AVN, though no collapse. CT i sof the left hip and shows areas of sclerosis and change of density beginning ofthe superior aspect ofthe head with just a trace of depression and findingsconsistent with AVN, per repo rt. Today, AP of the pelvis and lateral left hipshow subtle findings of AVN at both hips wi th joint spaces maintained and nocollapse superiorly.IMPRESSIONAVN of both hips with trochan teric bursitis of left hip.DISCUSSIONI informed the patient that the findings are consistent with AVN and typicallyMRI is used to better distinguish such. It appears that the CT was o btained tolook for fracture and was negative in this regard. I am recommending an MRI toass ess both hips, and we will obtain authorization and obtainthis. He is havingmore pain than typically seen for AVN, as usually the pain does not becomesignificant until there is collap se of the head and arthritis. I see noindication for some of the variable procedures to try and re-vascularize the headthat are variable, and the results of total hips areso good that with his age, Iwould recommend, when the time is right, a total hip replacement. However, he ishaving more pain than expected for the nature or the degree of AVN that he has.I do fee l that he has an element of trochanteric bursitis. I am recommending atrial of an injection there today. A PAR conference was held.PROCEDUREWith the patient lying on his side, and in formed consent having been obtained,prepping x3 was done with Betadine to the lateral aspect of the left hip andtrochanteric area, followed by formal injection to the trochanteric burs a andbone with 40 mg of Depo-Medroland 8 mg of 0.25% Marcaine after 5 mL of 1%lidocaine was instilled. No complications. The area was dressed with a simpleBand-Aid. He will get the MRI and follow up thereafter for review. I indicatedthat consideration can be given for an articular hip [facility] but has been able to be accomplished by physiatryin this office under ultrasound. We will then determine if he n eeds to considerthis. As far as narcotic pain medication, he does have some from a dentalpr oblem, and I indicated the only time I prescribe narcotic pain medication isaftersurgery or in cases of fractures. In this case, if he needs painmedication for his hip, he should get it from his primary physician, per mario.ADDENDUMWith the patient having evidence of bila teral AVN, I did discuss etiologies forsuch, including fractures, but there is no history of this, and the other morecommon etiologies of heavy alcohol use or use of prednisone, and he denies eitherof these, in which case the AVN would be considered idiopathic. Darrion Engel MDKAH:JMD: 01/13/2016 17: 33:22 : [id number] [facility] CLINIC NOTEEle ctronically signed by Darrion Engel MD at 01/13/2017 11:32 AM PDTdocumented in this enc ounter Plan of Treatment Not on filedocumented as of this encounter Visit Diagnoses Not on filedocumented in this encounter"
--- OUTSIDE RECORDS SUMMARY | ~2019-09-30 | XMS | Clinical Summary ---
Demographics + + + | Address | [address] | | | [place] [address] | + + + | Home Phone [...] Author + + + | Author | [facility] | + + + | Organization | [facility] | + + + | Address | Unknown | + + + | Phone | Unavailable | + + + Support + + +---------+ + | Name | Relationship | Address | Phone | + + +---------+ + | Liss Hughes | ECON | Unknown | | + + +---------+ + Care Team Providers + +------+ + | Care Janitor Head Name | Role | Phone | + +------+ + | Rudy Jamison MD | PCP | | + +------+ + Source Comments KIRTI is fully live on both [facility] Ambulatory and [facility] InPatient.[facility] Allergies + + + +--------+ + | Active Allergy | Reactions | Severity | Noted | Comments | | | | | Date | | + + + +--------+ + | Codeine | Pruritus | Medium | | | + + + +--------+ + | Sulfa (Sulfonamide | Anaphylaxis | High | | | | Antibiotics) | | | | | + + + +--------+ + Medications + + + +---------+------+------+-------+ | Medication | Sig | Dispensed | Refills | Star | End | Statu | | | | | | t | Date | s | | | | | | Date | | | + + + +---------+------+------+-------+ | IBUPROFEN ORAL | Take by mouth. | | 0 | | | Activ | | | | | | | | e | + + + +---------+------+------+-------+ | methylPREDNISolone | Take by mouth daily | 21 | 0 | 01/1 | | Activ | | (MEDROL (LIZA)) 4 mg | with food: day 1=6 | tablet | | 7/20 | | e | | oral tablets,dose | tablets, day 2=5 | | | 18 | | | | pack | tablets, day 3=4 | | | | | | | | tablets, day 4=3 | | | | | | | | tablets, day 5=2 | | | | | | | | tablets, day 6=1 | | | | | | | | tablet. | | | | | | + + + +---------+------+------+-------+ | | Take 1 tablet by | 10 | 0 | 02/0 | | Activ | | oxyCODONE-acetaminop | mouth every six | tablet | | 6/20 | | e | | hen (PERCOCET) 5-325 | hours as needed for | | | 18 | | | | mg oral tablet | severe pain. Not to | | | | | | | | exceed 10 tablets | | | | | | | | per any 24 hour | | | | | | | | period. | | | | | | + + + +---------+------+------+-------+ Active Problems No known active problems Family History + + +------+ + | Medical History | Relation | Name | Comments | + + +------+ + | Diabetes | Brother | | | + + +------+ + + +------+--------+ + | Relation | Name | Status | Comments | + +------+--------+ + | Brother | | | | + +------+--------+ + Social History + +-------+ +--------+ + [...] recent travel history available. | + + Last Filed Vital Signs + + + + + | Vital Sign | Reading | Time Taken | Comments | + + + + + | Blood Pressure | 144/92 | 06/06/2017 2:20 PM | | | | | PST | | + + + + + | Pulse | 80 | 06/06/2017 2:20 PM | | | | | PST | | + + + + + | Temperature | 36.4 C (97.5 F) | 06/06/2017 2:20 PM | | | | | PST | | + + + + + | Respiratory Rate | 16 | 06/06/2017 2:20 PM | | | | | PST | | + + + + + | Oxygen Saturation | 95% | 06/06/2017 2:20 PM | | | | | PST | | + + + + + | Inhaled Oxygen | - | - | | | Concentration | | | | + + + + + | Weight | 111.1 kg (245 lb) | 06/06/2017 9:27 AM | | | | | PST | | + + + + + | Height | 182.9 cm (6') | 06/06/2017 9:27 AM | | | | | PST | | + + + + + | Body Mass Index | 33.23 | 06/06/2017 9:27 AM | | | | | PST | | + + + + + Plan of Treatment + + + + + | Health Maintenance | Due Date | Last Done | Comments | + + + + + | Influenza (Flu) | | 02/06/2017, 01/12/2016, | | | vaccination (#1) | 9 | 01/15/2015, Additional history | | | | | exists | | + + + + + | Pneumococcal | Aged Out | | No longer eligible | | vaccination | | | based on patient's | | | | | age to complete this | | | | | topic | + + + + + Results Not on filefrom Last 3 Months Insurance + +--------+ +--------+-------+---------+--------+ | Payer | Benefi | Subscriber | Effect | Phone | Address | Type | | | t Plan | ID | emma | | | | | | / | | Dates | | | | | | Group | | | | | | + +--------+ +--------+-------+---------+--------+ | LEGAL EXECUTIVE MEDICAID | LEGAL EXECUTIVE | xxxxxxxx | 04/17/ | | | Medica | | | [place] | | 2017-P | | | id | | | | | resent | | | | | | HEALTH | | | | | | | | | | | | | | | | ALLIAN | | | | | | | | CE | | | | | | + +--------+ +--------+-------+---------+--------+ + +--------+ +--------+ + + | Guarantor Name | Accoun | Relation to | Date | Phone | Billing Address | | | t Type | Patient | of | | | | | | | | | | + +--------+ +--------+ + + | Nayan Reid | Person | Self [birth year] | [address] | | | al/Fam | | 1965 | [phone] | [place] [address] | | | kelli | | | 1 (Home) | | + +--------+ +--------+ + + Advance Directives + + + + + | Code Status | Date | Date | Comments | | | Activated | Inactivated | | + + + + + | Full Code | 06/06/2017 | 06/06/2017 | | | | 9:27 AM | 9:19 PM | | + + + + +"
--- OUTSIDE RECORDS SUMMARY | ~2019-09-30 | XMS | Encounter Summary ---
Demographics + + + | Address | [address] | | | [place] [address] | + + + | Home Phone [...] Team Providers + +------+ + | Care Real Estate Specialist Name | Role | Phone | [...] Nasal mass | Emmanuelle Vega, | [facility] [address] | | | | | Procedures | PA-C [address] | [address] | | | | | CT SINUS WO | [address] | Holly COTTO | | | | | CONTRAST | [place], [place] | Hospital, | | | | | ROUTINE | [address] | 10[address] Floor | | | | | ([place] | Phone: | [place], [place] | | | | | PROTOCOL) | [phone] | [address] | | | | | [address] CT | Fax: | Phone: | | | | | SCAN,MAXILLO | [phone] | [phone] | | | | | FACIAL | | Fax: | | | | | AREA,W/O | | [phone] | | | | | CONTRAST | [...] Procedures | PA-Edwin [address] | [address] | | | | | CT SINUS WO | [address] | Holly Valle [facility] | | | | | CONTRAST | [place], [place] | Hospital, | | | | | ROUTINE | [address] | 10th Floor | | | | | ([place] | Phone: | [place], [place] | | | | | PROTOCOL) | [phone] | [address] | | | | | AL CT | Fax: | Phone: | | | | | SCAN,MAXILLO | [phone] | [phone] | | | | | FACIAL | | Fax: | | | | | AREA,W/O | | [phone] | | | | | CONTRAST | [...] | | [address] Mailcode: | [place], [place] | | | | | [facility] | [address] | | | | | [facility], | [phone] | | | | | [address] | | | | | | Floor [facility] [place] | | | | | | [address] | | | | | | [phone] | | | +--------+ + + + [...]
--- OUTSIDE RECORDS SUMMARY | ~2019-09-30 | XMS | Clinical Summary ---
Demographics + + + | Address | [address] | | | [place] [address] | + + + | Home Phone | | + + + | Preferred Language | Unknown | + + + | Marital Status | Single | + + + | Zoroastrian Affiliation | NRP | + + + [...] Team Providers + +------+ + | Care Biostatistics Teacher Name | Role | Phone | + +------+ + | Rudy Jamison MD | PCP | | + +------+ + Source Comments KIRTI is fully live on both [facility] Amb[facility] and [facility] InPatient.[facility] Allergies + + + +--------+ + | [...] | | | + +--------+ +--------+-------+---------+--------+ | [employer] | [employer] | xxxxxxxx | 04/17/ | | | [...] al/Fam | | 1965 | [phone] | [place] [address] | | | kelli | | | [...]
--- OUTSIDE RECORDS SUMMARY | ~2019-09-30 | XMS | Encounter Summary ---
Demographics + + + | Address | [address] | | | [place] [address] | + + + | Home Phone [...] + + + | Author | [facility] | + + + | Organization | [facility] | + + + | Address | Unknown | + + + | Phone | Unavailable | + + + Support + + +---------+ + | Name | Relationship | Address | Phone | + + +---------+ + | Liss Hughes | ECON | Unknown | | + + +---------+ + Care Team Providers + +------+ + | Care Accounts Payables Clerk Name | Role | Phone | + +------+ + | Rudy Jamison MD | PCP | | + +------+ + Encounter Details +--------+ + + + + | Date | Type | Department | Care Team | Description | +--------+ + + + + | 06/06/ | Pharmacy | [facility] | | | | 2018 | Visit | [facility] | | | | | | [address] | | | | | | Mailcode: [place] | | | | | | [facility] | | | | | | Healing, [address] | | | | | | [place], [place] | | | | | | [address] | | | | | | [phone] | | | +--------+ + + + [...]
--- OUTSIDE RECORDS SUMMARY | ~2019-09-30 | XMS | Encounter Summary ---
Demographics + + + | Address | [address] | | | [place] [address] | + + + | Home Phone | | + + + | Preferred Language | Unknown | + + + | Marital Status | Single | + + + | Hinduism Affiliation | NRP | + + + | Race | White | + + + | Ethnic Group | Not or | + + + Author + + + | Author | [facility] | + + + | Organization | [facility] | + + + | Address | Unknown | + + + | Phone | Unavailable | + + + Support + + +---------+ + | Name | Relationship | Address | Phone | + + +---------+ + | Liss Hughes | ECON | Unknown | | + + +---------+ + Care Team Providers + +------+ + | Care Supervisor Drying And Softening Name | Role | Phone | + [...] Description | +--------+---------+ + + + | 06/06/ | Surgery | [facility] | Jacob Espinal, | EXCISIONAL BIOPSY OF | | 2018 | [facility] | MD Trey Montanez | RIGHT SEPTAL | | | | and Healing Surgery | Mitzy Prajapati | LESION, POSSIBLE | | | | Center Admitting | [facility] [place] | SEPTOPLASTY | | | | Desk Located on the | [place] [address] | | | | | 4th floor [address] | [phone] | | | | | [address] [place], | | | | | | [place] [address] | | | +--------+---------+ + + + [...] + + + documented in this encounter Discharge Instructions Instructions Steven Crowder RN - 06/06/[address] Espinal Reid is to have access to bedrest for the next 4 days. Nursing Discharge Instructions General discharge instructions for same-day procedure patients: Remember that you are under the influence of medication. Do not stay alone. A responsible person should be with you. Do not drive, drink alcohol or make important personal or business decision for 24 hours . Resume normal activity and return to work when advised by your Doctor. Pain Management: Your last oral pain medication was given at: 10 mg Oxycodone at 1:15 pm Please follow your Doctor's instructions on the medication bottle. Do not take pain medication on an empty stomach, as this may cause nausea and vomiting. Do not drive or drink alcohol while on narcotic pain medication. If you received a Peripheral Nerve Block, please take pain medication when numbing begin s to wear off or when you go to bed. This will allow for pain coverage when your nerve bloc k wears off during the night. Diet: If you do not experience nausea or vomiting resume your regular diet. Eat lightly and av oid large, high fat or highly spiced meals for 24-48 hours. Constipation can be a side effect of narcotic pain medication. Take stool softeners, in crease dietary fiber and drink plenty of water to prevent this. Wound/Dressing/Drain Care: Change your dressing according to your Doctor's instructions. You may place a bandaid o n incisional site if needed. Change bandaid daily. Call your Doctor if there is excessive bleeding, redness, swelling or drainage at the o perative site. Follow up appointment: IV Site Care Instructions: Monitor IV site for pain, redness, swelling and/or drainage. If present, call your Doct or immediately. Minor redness and/;or tenderness may be treated with warm, moist compresses for 24-48 ho urs, If the area is still red and/or tender after this, notify your Doctor. Call 911 if you experience difficulty breathing or unusual shortness of breath. Additional Home Care Instructions: A very small number of patients may have trouble voiding (emptying your bladder) after anes thesia. If you were unable to void after surgery at the surgery center and greater than 8 h ours at home has passed, still unable to void you need to visit the Emergency room. Scopolamine patch: If you go home with a scopolamine patch watch for blurry vision, metalli c taste, balance issues, irritability, drooling or dry mouth, please remove the patch, wash ing your hands with soap and water after removing. Call Doctor if it does not go away. After arriving home you may receive a patient satisfaction survey from "[employer]". We damaso reyes appreciate your feedback on the survey to help us provide excellent service to you and your families. Prevention of DVT (deep vein thrombosis) 1. Get up and move 2. Do ankle exercises Signs and symptoms of DVT 1. Redness, Swelling, warmth and tenderness in calf. 2. Sharp pain in calf when you point your toes towards you body. documented in this encounter Medications at Time of Discharge [...] + + + +---------+ + + | | Take 1 tablet by | 10 | 0 | 06/06/19 | | | oxyCODONE-acetaminop | mouth every six | tablet | | 18 | | | hen (PERCOCET) 5-325 | hours as needed for | | | | | | mg oral tablet | severe pain. Not to | | | | | | | exceed 10 tablets | | | | | | | per any 24 hour | | | | | | | period. | | | | | + + + +---------+ + + | cephALEXin | Take 1 capsule by | 20 | 0 | 06/06/19 | | | (KEFLEX) 250 mg oral | mouth every six | capsule | | 18 | 8 | | capsule | hours for 5 days. | | | | | + + + +---------+ + + documented as of this encounter Plan of Treatment Not on filedocumented as of this encounter Procedures + +--------+ + + + | Procedure Name | Priori | Date/Time | Associated Diagnosis | Comments | | | ty | | | | + +--------+ + + + | PROCEDURE NOTE | Routin | 06/06/2017 | | Results for this | | | e | 3:06 PM | | procedure are in the | | | | PST | | results section. | + +--------+ + + + | PROCEDURE NOTE | Routin | 06/06/2017 | | Results for this | | | e | 12:34 PM | | procedure are in the | | | | PST | | results section. | + +--------+ + + + | SURGICAL PATHOLOGY | Routin | 06/06/2017 | | Results for this | | | e | 11:33 AM | | procedure are in the | | | | PST | | results section. | + +--------+ + + + | BIOPSY OF SINONASAL | Electi | 06/06/2017 | NASAL MASS | | | MASS | ve | 10:40 AM | | | | | Surgic | PST | | | | | al | | | | + +--------+ + + + | INTRAPROCEDURE | Routin | 06/06/2017 | | Results for this | | IMAGING | e | 9:27 AM | | procedure are in the | | | | PST | | results section. | + +--------+ + + + | CARDIOLOGY | | 06/06/2017 | | Results for this | | | | 12:00 AM | | procedure are in the | | | | PST | | results section. | + +--------+ + + + documented in this encounter Results PROCEDURE NOTE (06/06/2017 3:06 PM PST)PROCEDURE NOTE (06/06/2017 12:34 PM PST) + + | Procedure Note | + + | Kylie HENDERSON, Jacob Mahmood - 06/06/2017 12:34 PM PST Attending Surgeon: Jacob Espinal, | | MDDate of surgery: 06/06/2017Preoperative Diagnosis(es): 1. Right nasal mass2. Septal | | deviationPostoperative Diagnosis(es): 1. Right nasal mass2. Septal deviationProcedures | | Performed: 1. Bilateral nasal endsocopy2. Excisional biopsy of right nasal | | lesionFindings: Normal left nasal endoscopyPapillomatous mass in right anterior nasal | | cavity. This was biopsied. The attachment site was primarily the right anterior | | superior septum. There was a 3 mm site of involvement at the anterior right lateral | | wall as well. These sites were sharply circumscribed to perform an excisional biopsy. | | Septal cartilage was normal appearing under the lesion.Specimens: Right nasal mass #1 - | | debulkingRight nasal mass #2 including septum - excisional biopsyEstimated Blood Loss: | | Less than 50 cc. Complications: None apparent. Procedure: The patient was identified in | | the holding area and taken to the operating room where he was placed in the supine | | position and induced under general inhalational anesthesia per Anesthesiology. A formal | | surgical pause was held, and all aspects were addressed. The patient was draped in the | | normal fashion. The nose was topically decongested with 1:1000 adrenaline on neuro | | pledgets. Nasal endoscopy was performed with findings as listed above. The right | | anterior septum was injected with 1% lidocaine with 1:100,000 epinephrine. The right | | nasal mass was debulked and biopsied with a claribel - this was sent for permanent | | pathology. After debulking the attachment area was visible. The mass was attached to | | the right anterior superior septum. A small, 3 mm area of involvement at the anterior | | lateral nasal wall was noted. The septal component was circumscribed sharply through | | mucosa and down to septal cartilage, which appeared normal, and entirely excised. The | | area on the lateral wall was circumscribed sharply and excised. These specimens were | | sent for permanent pathology. Hemostasis was achieved with pledgets. Reinspection | | confirmed the lesion was fully excised. I placed a silastic stent over the area of | | excision to prevent scarring to the lateral wall and sutured this through septum to a | | piece of sialistic on the left side. The patient was turned over to anesthesia for | | awakening.Jacob Espinal MD | |None apparent. | | | |Procedure: | |The patient was identified in the holding area and taken to the operating | |room where he was placed in the supine position and induced under general | |inhalational anesthesia per Anesthesiology. A formal surgical pause was | |held, and all aspects were addressed. The patient was draped in the normal | |fashion. The nose was topically decongested with 1:1000 adrenaline on | |neuro pledgets. Nasal endoscopy was performed with findings as listed above. The right an terior septum was injected with 1% lidocaine with 1:100,000 epinephrine. The right nasal ma ss was debulked and biopsied | |with a claribel - this was sent for permanent pathology. After debulking the attachment a rachell was visible. The mass was attached to the right anterior superior septum. A small, 3 m m area of involvement at the | |anterior lateral nasal wall was noted. The septal component was circumscribed sharply thro ugh mucosa and down to septal cartilage, which appeared normal, and entirely excised. The a rachell on the lateral wall was | |circumscribed sharply and excised. These specimens were sent for permanent pathology. Hem ostasis was achieved with pledgets. Reinspection confirmed the lesion was fully excised. I placed a silastic stent over | |the area of excision to prevent scarring to the lateral wall and sutured this through septu m to a piece of sialistic on the left side. The patient was turned over to anesthesia for aw akening. | | | |Jacob Espinal MD | + + SURGICAL PATHOLOGY (06/06/2017 11:33 AM PST) + + + + + + | Component | Value | Ref Range | Performed | Pathologist | | | | | At | Signature | + + + + + + | Clinical | The patient is a | | [facility] | | | History | 52-year-old man with a | | DEPARTMENT | | | | history of a nasal mass. | | OF | | | | | | PATHOLOGY | | + + + + + + | Final | A. 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 | | | | + + + + + + | Gross | Received are 2 specimens | | [facility] | | | Description | fresh in containers | | DEPARTMENT | | | | labeled with the | | OF | | | | patient's name (initials | | PATHOLOGY | | | | MED) and medical record | | | | | | number [id number]. | | | | | | Received labeled "right | | | | | | nasal mass" are multiple | | | | | | pink-yuan irregularly | | | | | | shaped soft tissue | | | | | | fragments 2.4 x 1.5 x | | | | | | 0.5 cm in aggregate. The | | | | | | specimen is filtered | | | | | | and entirely submitted | | | | | | in cassette A1.B. | | | | | | Received labeled "right | | | | | | nasal mass #2 including | | | | | | septum" are multiple yuan | | | | | | to red-brown firm and | | | | | | ragged tissue fragments | | | | | | 1.9 x 1.2 x 0.4 cm in | | | | | | aggregate. The specimen | | | | | | is filtered and entirely | | | | | | submitted in cassette | | | | | | B1.(NLG) | | | | + + + + + + + + | Specimen | + + | Tissue - Nasal | | (qualifier value) | + + | Tissue - Nasal | | (qualifier value) | + + + + + + + | Performing | Address | City/State/Zipcode | Phone Number | | Organization | | | | + + + + + | [facility] | [address] | [place] [address] | | | PATHOLOGY | [address] | | | + + + + + INTRAPROCEDURE IMAGING (06/06/2017 9:27 AM PST) + + | Specimen | + + | | + + + + + | Narrative | Performed At | + + + | See admission | | | or procedure notes for details of any intraprocedure images obtained. | | + + + CARDIOLOGY (06/06/2017 12:00 AM PST) + + + | Narrative | Performed At | + + + | | | + + + documented in this encounter Visit Diagnoses Not on filedocumented in this encounter Administered Medications + +--------+ +--------+------+------+ | Medication Order | MAR | Action | Dose | Rate | Site | | | Action | Date | | | | + +--------+ +--------+------+------+ | acetaminophen (TYLENOL) tablet | Given | 06/06/19 | 650 mg | | | | 650 mg 650 mg, oral, ONCE, 1 | | 18 10:18 | | | | | dose, 06/06/17 at 1100 | | AM PST | | | | + +--------+ +--------+------+------+ + +---+ | | | + +---+ | fentaNYL (SUBLIMAZE) injection | | | 50 mcg 50 mcg, intravenous, | | | POSTPROCEDURE PRN, 4 doses, | | | Starting 06/06/17 at 1253, | | | Until 06/06/17 at 2113, severe | | | pain while in Phase I Recovery | | + +---+ | | | + +---+ | HYDROmorphone (DILAUDID) | | | injection 0.2-0.5 mg 0.2-0.5 mg, | | | intravenous, POSTPROCEDURE PRN, | | | Starting 06/06/17 at 1253, | | | Until 06/06/17 at 4, | | | moderate pain while in Phase I | | | Recovery | | + +---+ | | | + +---+ + + + +---+---+---+ | lactated Ringers IV 10 mL/hr, | given by | 06/06/19 | | | | | intravenous, PROCEDURE | | 18 12:46 | | | | | CONTINUOUS, Starting 06/06/17 | anesthes | PM PST | | | | | at 0930, Until 06/06/17 at 2114 | iology | | | [...] | | | | + + +---+---+---+ + +---+ | | | + +---+ | lactated Ringers IV 500 mL, | | | intravenous, POSTPROCEDURE PRN, 1 | | | dose, Starting 06/06/17 at | | | 1253, Until 06/06/17 at 4, | | | nausea/vomiting due to | | | dehydration | | + +---+ | | | + +---+ | lidocaine (XYLOCAINE) 10 mg/mL | | | (1 %) injection subcutaneous, | | | PREPROCEDURE PRN, Starting Tue | | | 06/06/17 at 0927, Until 06/06/17 | | | at 2113, IV start | | + +---+ | | | + +---+ + +-------+ +------+---+ + | lidocaine-EPINEPHrine | Given | 06/06/19 | 3 mL | | Surgical | | (XYLOCAINE WITH EPINEPHRINE) 1 | | 18 12:14 | | | Site | | %-1:100,000 injection | | PM PST | | | | | INTRAPROCEDURE PRN, Starting Tue | | | | | | | 06/06/17 at 1214, Until 06/06/17 | | | | | | | at 1242 | | | | | | + +-------+ +------+---+ + +---+---+ | | | +---+---+ + +-------+ +---+---+ + | Mixture - fluorescein eye | Given | 06/06/19 | | | Surgical | | strip-EPINEPHrine 1:1000 topical | | 18 12:16 | | | Site | | solution INTRAPROCEDURE PRN, | | PM PST | | | | | Starting 06/06/17 at 1216, | | | | | | | Until 06/06/17 at 1242 | | | | | | + +-------+ +---+---+ + + +---+ | | | + +---+ | naloxone (NARCAN) injection | | | intravenous, POSTPROCEDURE PRN, | | | Starting 06/06/17 at 1253, | | | Until 06/06/17 at 2114, | | | hypopnea | | + +---+ | | | + +---+ + +-------+ +-------+---+---+ | oxyCODONE (immediate release) | Given | 06/06/19 | 10 mg | | | | (ROXICODONE) tablet 5-10 mg 5-10 | | 18 1:12 | | | | | mg, oral, EVERY 4 HOURS | | PM PST | | | | | NEEDED, Starting 06/06/17 at | | | | | | | 1232, Until 06/06/17 at 2114, | | | | | | | moderate pain, severe pain | | | | | | + +-------+ +-------+---+---+ + +---+ | | | + +---+ | promethazine (PHENERGAN) | | | injection 6.25-12.5 mg 6.25-12.5 | | | mg, intravenous, POSTPROCEDURE | | | PRN, 1 dose, Starting 06/06/17 | | | at 1253, Until 06/06/17 at | | | 9844, nausea/vomiting, 1st line | | + +---+ | | | + +---+ documented in this encounter
--- OUTSIDE RECORDS SUMMARY | ~2019-09-30 | XMS | Encounter Summary ---
Demographics + + + | Address | [address] | | | [place] [address] | + + + | Home Phone [...] + + + | Author | [facility] | + + + | Organization | [facility] | + + + | Address | Unknown | + + + | Phone | Unavailable | + + + Support + + +---------+ + | Name | Relationship | Address | Phone | + + +---------+ + | Liss Hughes | ECON | Unknown | | + + +---------+ + Care Team Providers + +------+ + | Care Cheese Factory Worker Name | Role | Phone | + +------+ + | Rudy Jamison MD | PCP | | + +------+ + Reason for Visit + + + | Reason | Comments | + + + | Discussion | | + + + Encounter Details +--------+ + + + + | Date | Type | Department | Care Team | Description | +--------+ + + + + | 06/09/ | Telephone | [facility] | Jacob Espinal, | Discussion | | 2018 | | Center at [facility] [address] | [address] | | | | | [address] | Mitzy Prajapati | | | | | Mailcode: [id number] | [address] | | | | | [facility] | [place] [address] | | | | | and [facility], | [phone] | | | | | [facility] | | | | | | Floor [place], [place] | | | | | | [address] | | | | | | [phone] | | | +--------+ + + + [...]
--- OUTSIDE RECORDS SUMMARY | ~2019-09-30 | XMS | Encounter Summary ---
Demographics + + + | Address | [address] | | | [place] [address] | + + + | Home Phone | | + + + | Preferred Language | Unknown | + + + | Marital Status | Single | + + + | Orthodox Affiliation | NRP | + + [...] Team Providers + +------+ + | Care Asp Web Developer Name | Role | Phone | + +------+ + | Rudy Jamison MD | PCP | | + +------+ + Reason for Visit + + + | Reason | Comments | + + + | Pre-op evaluation | | + + + Encounter Details +--------+ + + + + | Date | Type | Department | Care Team | Description | +--------+ + + + + | 06/01/ | Telephone-S | Preoperative | | Pre-op evaluation | | 2018 | cheduled | Medicine Clinic at | | | | | | [facility] | | | | | | Stay [address] | | | | | | [address] | | | | | | Mailcode: [id number] | | | | | | [place] [address] | | | | | | [address] [place], [place] | | | | | | [address] | | | | | | [phone] | | | +--------+ + + + [...] | Meds | +------+ + + + No medications | on file. | + + + + + | No agents on file. | + + + + | No blood administrations on file. | + + +--------+ + + + | Type | Details | Placement | Removal | +--------+ + + + | Periph | 06/06/17; 0950; Left; | 06/06/17 0950 by | 06/06/17 1500 by | | eral | Antecubital; 20 g; None; | Luma [...] + + documented as of this encounter Patient Instructions Patient Instructions Suzanne Dacosta RN - 06/01/2017 3:54 PM PST PREOPERATIVE INSTRUCTIONS Do not eat or drink anything after midnight the night before surgery. May TAKE the following medications with a sip of water on the morning of surgery: OXYCODONE-ACETAMINOPHEN 5 MG-325 MG TABLET Do NOT take the following medications on the morning of surgery: TYLENOL 8 HOUR ORAL Unless otherwise directed by your surgeon, do not take any Aspirin, vitamin E or non-tony roidal anti-inflammatory (NSAIDs i.e. Advil, Aleve, Ibuprofen) or herbal supplements seven d ays prior to your surgery. These drugs may interfere with normal blood clotting and may caus e excessive bleeding and bruising during or after the surgery. If you need a pain medication for general purposes, use Tylenol as directed. If you are in doubt about any medications that you are taking, please contact our office . Important Guidelines Do not shave the surgical area Do not smoke, drink alcohol or use recreational drugs for 24 hours before your surgery Do not eat any hard candy or chew gum after midnight the night before your surgery. Watch for any change in your health condition. Let your surgeon know right away if you do not feel well. Do not wear makeup, perfume, lotions or powder. Remove any nail belizean from at least one fingernail. Do not wear any jewelry to the hospital. Wear loose, comfortable clothing. Bring the case and solution for your contact lenses or wear your glasses. Leave all your valuables at home. Allow enough travel time so you re not late for your check in for surgery. Take a bath or shower and remember to shampoo your hair using your usual hair product be fore your arrival at the hospital. Please remember to brush your teeth the night before and the morning of your procedure. Surgery Check in Locations [facility] Day [facility], fourth floor Surgery Check in Time: Someone from your surgeon's office or [facility] will provide you with information regarding your check in time. If you have any questions about this, pl ease contact your surgeon's office. Going Home Your surgical team will decide when you are medically ready to go home. If you are released to go home on the same day as your procedure/surgery please note the following: You will not be able to drive. You will be required to have a competent adult drive you or accompany you by taxi or pub lic transportation on the day of discharge. It is also required that you have a competent adult assist you and look after you on the first night after you have undergone regional blocks (72 hours for patients going home with regional block pump), deep sedation, and/or general anesthesia. If you have questions or concerns after you go home, call your doctor s office. If i t is after office hours, call the [facility] fabrication machine operator at [phone] and ask them to page your do ctor. documented in this encounter Plan of Treatment Not on filedocumented as of this encounter Visit Diagnoses Not on filedocumented in this encounter"
--- OUTSIDE RECORDS SUMMARY | ~2019-09-30 | XMS | Encounter Summary ---
Demographics + + + | Address | [address] | | | [place] [address] | + + + | Home Phone [...] Author + + + | Author | [facility] | + + + | Organization | [facility] | + + + | Address | Unknown | + + + | Phone | Unavailable | + + + Support + + +---------+ + | Name | Relationship | Address | Phone | + + +---------+ + | Liss Hughes | ECON | Unknown | | + + +---------+ + Care Team Providers + +------+ + | Care Artificial Flowers Starcher Name | Role | Phone | + [...] + + | 05/18/ | Telephone | [facility] | Emmanuelle Peter, | Question | | 2017 | | Center at [facility] [address] | PA-C [address] | | | | | [address] | [place], [place] | | | | | Mailcode: [id number] | [address] | | | | | [facility] | [phone] | | | | | and Gabriela, | | | | | | [facility] | | | | | | [place], [place] | | | | | | [address] | | | | | | [phone] | | | +--------+ + + + [...]
--- OUTSIDE RECORDS SUMMARY | ~2019-09-30 | XMS | Encounter Summary ---
Demographics + + + | Address | [address] | | | [place] [address] | + + + | Home Phone [...] + + + | Author | [facility] | + + + | Organization | [facility] | + + + | Address | Unknown | + + + | Phone | Unavailable | + + + Support + + +---------+ + | Name | Relationship | Address | Phone | + + +---------+ + | Liss [place] | ECON | Unknown | | + + +---------+ + Care Team Providers + +------+ + | Care Auto Engine Mechanic Name | Role | Phone | [...] of | Jacob Mahmood MD | Jacob Mahmood MD | | | | | uncertain | [address] | [address] | | | | | behavior of | [address] | Court | | | | | other | [place] | | | | | respiratory | OutPt | OutPt | | | | | organs | [place] | | | | | Lesion of | [place] | | | | | nasal septum | [address] | [address] Phone: | | | | | Epistaxis | Phone: | | | | | | Deviated | | Fax: | | | | | nasal septum | Fax: | [phone] | | | | | Procedures | | | | | | | REQUEST TO | | | | | | | SURGERY | | | | | | | PAYING TELLER | | | | | | | [facility] NASAL | | | | | | | SCOPE,BX/RMV | | | | | | | | | | | | | | POLYP/DEBRID | | | | | | | VA | | | | | | | INTRANASAL | | | | | | | BIOPSY VA | | | | | | | EXCIS/DEST | | | | | | | INTRANAS | | | | | | | LESION; INT | | | | | | | THIERRY VA | | | | | | | ENDOSCOPIC | | | | | | | NASAL TUMOR | | | | | | | REMOVAL VA | | | | | | | [...] | | | | | CONTRAST | [place], [place] | Hospital, | | | | | ROUTINE | [address] | 10th Floor | | | | | (LANDMARX | Phone: | [place], [place] | | | | | PROTOCOL) | [phone] | [address] | | | | | [address] | Fax: | Phone: | | | | | SCAN,MAXILLO | [phone] | [phone] | | | | | FACIAL | | Fax: | | | | | AREA,W/O | | [phone] | | | | | CONTRAST | [...] S | | | | | | DYNAMOTOR REPAIRER | [address] | | | | | | Rhonda | Mailcode: | | | | | | Community | [facility] | | | | | | Health | for Health | | | | | | [place] [address] | and Healing, | | | | | | [facility] | Building 1, | | | | | | [address] | 5th Floor | | | | | | [place], [place] | [place], [place] | | | | | | [address] | [address] | | | | | | Phone: | Phone: | | | | | | [phone] | [phone] | | | | | | Fax: | Fax: | | | | | | [phone] | [phone] | +--------+--------+ + + + + Encounter Details +--------+---------+ + + + | Date | Type | Department | Care Team | Description | +--------+---------+ + + + | 05/17/ | Office | [facility] | Emmanuelle Peter, | Nasal mass (Primary | | 2018 | Visit | Center at [facility] [address] | PA-C [address] | Dx); Lesion of nasal | | | | [address] | Ave [place], [place] | septum | | | | Mailcode: [facility] | [address] | | | | | [facility] | [phone] | | | | | and Healing, | | | | | | Building 1, [facility] | | | | | | Floor [place], [place] | | | | | | [address] | | | | | | [phone] | | | +--------+---------+ + + + [...] Peter PA-C - 05/17/2017 11:30 AM PST [facility] HPI: Nayan Reid is a 52 y.o. male who presents to the [facility] in consulta tion for Epistaxis. [...] an excisional biopsy. The patient comes from [place] and preferred to have a pre anesthesia [...] | + +--------+ + + + | [facility] | Routin | 05/18/2017 | Lesion [...]
--- OUTSIDE RECORDS SUMMARY | ~2019-09-30 | XMS | Encounter Summary ---
Demographics + + + | Address | [address] | | | [place] [address] | + + + | Home Phone [...] Team Providers + +------+ + | Care Data Administrator Name | Role | Phone | + +------+ + PCP | Unavailable | + +------+ + Encounter Details +--------+ + + + + | Date | Type | Department | Care Team | Description | +--------+ + + + + | 12/31/ | ED Progress | Epic at [facility] | Malachi Michael MD | ED Progress Note | | 2016 | | [address] | [address] [facility] | | | | Note-Transc | [place], [place] | [address] | | | | ribchilo | [address] | [place], [place] | | | | | | [address] | | | | | | [phone] | | | | | | | [...]
--- OUTSIDE RECORDS SUMMARY | ~2019-09-30 | XMS | Encounter Summary ---
Demographics + + + | Address | [address] | | | [place] [address] | + + + | Home Phone | | + + + | Preferred Language | Unknown | + + + | Marital Status | Single | + + + | Temple Affiliation | NRP | + + + | Race | White | + + + | Ethnic Group | Not or | + + + Author + + + | Author | [facility] | + + + | Organization | [facility] | + + + | Address | Unknown | + + + | Phone | Unavailable | + + + Support + + +---------+ + | Name | Relationship | Address | Phone | + + +---------+ + | Liss [place] | ECON | Unknown | | + + +---------+ + Care Team Providers + +------+ + | Care Butane Compressor Operator Name | Role | Phone | [...] + + + + | 06/06/ | Hospital | [facility] | Jacob Espinal, | | | 2017 | Encounter | STAY [address] | [address] | | | | | [place] Mailcode: [facility] | [address] | | | | | [facility] | OutPt Onset | | | | | Health and Healing, | [place] [address] | | | | | [place] [address] | [phone] | | | | | [place], [place] | | | | | | [address] | | | | | | [phone] | | | +--------+ + + + [...] Steven Crowder RN - 06/06/[address] Espinal, Mr Reid is to have access to bedrest [...] may receive a patient satisfaction survey from "[employer]". We w janeld appreciate your feedback on the survey to [...] | | | | | | number [id number]. | | | | | | Received [...] | + + + + + | [facility] | [address] | [place] [address] | | | PATHOLOGY | [address] | | | + + + [...] neck | + + documented in this encounter Administered Medications + +--------+ [...] | | | Until 06/06/17 at 2114, severe | | | pain while in Phase I Recovery | | + +---+ | | | + +---+ | HYDROmorphone (DILAUDID) | | | injection 0.2-0.5 mg 0.2-0.5 mg, | | | intravenous, POSTPROCEDURE PRN, | | | Starting 06/06/17 at 1253, | | | Until e 06/06/17 at 2114, | | | moderate pain while in [...] | | | 1253, Until 06/06/17 at 2113, | | | nausea/vomiting due to | | | dehydration | | + +---+ | | | + +---+ | lidocaine (XYLOCAINE) 10 mg/mL | | | (1 %) injection subcutaneous, | | | PREPROCEDURE PRN, Starting Tue | | | 06/06/17 at 0927, Until Tue 18 | | | at 2113, IV start | | + +---+ | | | + +---+ | naloxone (NARCAN) injection | | | intravenous, POSTPROCEDURE PRN, | | | Starting 06/06/17 at 1253, | | | Until 06/06/17 at 4, | | | hypopnea | | + [...] | | | 1232, Until 06/06/17 at 4, | | | | | | | moderate pain, severe pain | | | | | | + +-------+ +-------+---+---+ + +---+ | | | + +---+ | promethazine (PHENERGAN) | | | injection 6.25-12.5 mg 6.25-12.5 | | | mg, intravenous, POSTPROCEDURE | | | PRN, 1 dose, Starting 06/06/17 | | | at 1253, Until 06/06/17 at | | | 2114, nausea/vomiting, 1st line | | + +---+ | | | + +---+ documented in this encounter
--- OUTSIDE RECORDS SUMMARY | ~2019-09-30 | XMS | Encounter Summary ---
Demographics + + + | Address | [address] | | | [place] [address] | + + + | Home Phone [...] Author + + + | Author | [facility] | + + + | Organization | [facility] | + + + | Address | Unknown | + + + | Phone | Unavailable | + + + Support + + +---------+ + | Name | Relationship | Address | Phone | + + +---------+ + | Liss [place] | ECON | Unknown | | + + +---------+ + Care Team Providers + +------+ + | Care Supervisor Alum Plant Name | Role | Phone | + +------+ + | Rudy Jamison MD | PCP | | + +------+ + Encounter Details +--------+ + + + + | Date | Type | Department | Care Team | Description | +--------+ + + + + | 06/08/ | Telephone | [place] [facility] | Jacob Espinal, | | | 2018 | | Center at [facility] [address] | [address] | | | | | [address] | [address] | | | | | Mailcode: [place] | [address] | | | | | [place] [facility] | [place] [address] | | | | | and Gabriela, | [phone] | | | | | [facility] | | | | | | Floor [place], [place] | | | | | | [address] | | | | | | [phone] | | | +--------+ + + + [...]
--- OUTSIDE RECORDS SUMMARY | ~2019-09-30 | XMS | Encounter Summary ---
Demographics + + + | Address | [address] | | | [place] [address] | + + + | Home Phone | | + + + | Preferred Language | Unknown | + + + | Marital Status | Single | + + + | Adventism Affiliation | NRP | + + + [...] Team Providers + +------+ + | Care Sales Product Specialist Name | Role | Phone | + +------+ + PCP | Unavailable | + +------+ + Encounter Details +--------+ + + + + | Date | Type | Department | Care Team | Description | +--------+ + + + + | 01/12/ | Office | Epic at [facility] | Darrion Engel | Progress Note | | 2015 | Visit-Trans | [address] | MD Dalia [address] [facility] | | | | reha | [place], [place] | [facility] | | | | | [address] | [place], [place] | | | | | | [address] | | | | | | [phone] | | | | | | | [...] Darrion Engel MD - 01/02/2017 4:13 PM [facility] BOBBY REID MD : 01/13/2016 Acct. No.: [id number] EVALUATIONThe patient is being seen, just recently obtaining a primary physician [facility], hav ing moved here about 3 weeks ago related to anew job. 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 There has notbeen any back probl em. 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 He d oes not use tobacco or [...] films of the right knee from09/30/2015 from [facility] are negative. Films of the hip from12/28/2015 [...] articular hip injection that typically isdone [facility] but has been able to be [...] Darrion Engel MDKAH:JMD: 01/13/2016 17: 33:22 : [id number] [facility] NOTEEle ctronically signed by Darrion Engel MD at 01/13/2017 11:32 AM PDTdocumented in this enc ounter Plan of Treatment Not on filedocumented as of this encounter Visit Diagnoses Not on filedocumented in this encounter"
--- OUTSIDE RECORDS SUMMARY | ~2019-09-30 | XMS | Encounter Summary ---
Demographics + + + | Address | [address] | | | [place] [address] | + + + | Home Phone | | + + + | Preferred Language | Unknown | + + + | Marital Status | Single | + + + | Anabaptism Affiliation | NRP | + + + | Race | White | + + + | Ethnic Group | Not or | + + + Author + + + | Author | [facility] | + + + | Organization | [facility] | + + + | Address | Unknown | + + + | Phone | Unavailable | + + + Support + + +---------+ + | Name | Relationship | Address | Phone | + + +---------+ + | Liss Hughes | ECON | Unknown | | + + +---------+ + Care Team Providers + +------+ + | Care Spare Hand Name | Role | Phone | + [...] | Pain | Diagnoses | Kylie, | 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 | | | | Management | [...] | | | | | Procedures | [place] | and Healing, | | | | | CONSULT TO | [place], [place] | Building | | | | | PAIN | [address] | 1,15th Floor | | | | | MANAGEMENT | Phone: | [place], [place] | | | | | | [phone] | [address] | | | | | | Fax: | Phone: | | | | | | [phone] | [phone] | | | | | | | Fax: | | | | | | | [phone] | +--------+--------+ + + + + Reason for Visit + + + | Reason | Comments | + + + | Question | | + + + Encounter Details +--------+ + + + + | Date | Type | Department | Care Team | Description | +--------+ + + + + | 06/07/ | Telephone | [facility] | Jacob Espinal, | Question | | 2018 | | Center at [facility] [address] | [address] | | | | | [address] | [address] | | | | | Mailcode: [place] | [address] | | | | | [place] [facility] | [place] [address] | | | | | and [facility], | [phone] | | | | | Building | | | | | | Floor [place], [place] | | | | | | [address] | | | | | | [phone] | | | +--------+ + + + [...]
--- OUTSIDE RECORDS SUMMARY | ~2019-09-30 | XMS | Encounter Summary ---
Demographics + + + | Address | [address] | | | [place] [address] | + + + | Home Phone [...] + + + | Author | [facility] | + + + | Organization | [facility] | + + + | Address | Unknown | + + + | Phone | Unavailable | + + + Support + + +---------+ + | Name | Relationship | Address | Phone | + + +---------+ + | Liss [place] | ECON | Unknown | | + + +---------+ + Care Team Providers + +------+ + | Care Cemetery Laborer Name | Role | Phone | + [...] + + | 06/06/ | Hospital | [facility] | Jacob Espinal, | | | 2017 | Encounter | STAY [address] | [address] | | | | | [place] Mailcode: [facility] | [address] | | | | | [facility] | OutPt [place] | | | | | Health and Healing, | [place] [address] | | | | | [place] [address] | [phone] | | | | | [place], [place] | | | | | | [address] | | | | | | [phone] | | | +--------+ + + + [...] may receive a patient satisfaction survey from "[employer]". We w janeld appreciate your feedback [...] | | | | | | number [id number]. | | | | | | Received [...] | + + + + + | [facility] | [address] | [place] [address] | | | PATHOLOGY | [address] [...]
--- OUTSIDE RECORDS SUMMARY | ~2019-09-30 | XMS | Encounter Summary ---
Demographics + + + | Address | [address] | | | [place] [address] | + + + | Home Phone [...] Author + + + | Author | [facility] | + + + | Organization | [facility] | + + + | Address | Unknown | + + + | Phone | Unavailable | + + + Support + + +---------+ + | Name | Relationship | Address | Phone | + + +---------+ + | Liss [place] | ECON | Unknown | | + + +---------+ + Care Team Providers + +------+ + | Care Open Die Inspector Name | Role | Phone | + +------+ + | Rudy Jamison MD | PCP | | + +------+ + Encounter Details +--------+ + + + + | Date | Type | Department | Care Team | Description | +--------+ + + + + | 06/06/ | Pharmacy | [facility] | | | | 2018 | Visit | [facility] | | | | | | [address] | | | | | | Mailcode: [place] | | | | | | [facility] | | | | | | Healing, Building 1 | | | | | | [place], [place] | | | | | | [address] | | | | | | [phone] | | | +--------+ + + + [...]
--- OUTSIDE RECORDS SUMMARY | ~2019-09-30 | XMS | Encounter Summary ---
Demographics + + + | Address | [address] | | | [place] [address] | + + + | Home Phone | | + + + | Preferred Language | Unknown | + + + | Marital Status | Single | + + + | Confucianist Affiliation | NRP | + + + [...] Team Providers + +------+ + | Care Forestry Aide Name | Role | Phone | + +------+ + PCP | Unavailable | + +------+ + Encounter Details +--------+ + + + + | Date | Type | Department | Care Team | Description | +--------+ + + + + | 01/12/ | Results | Epic at [facility] | Darrion Engel | | | 2016 | Only | [address] Gómez MD [address] [facility] | | | | | [place], [place] | [facility] | | | | | [address] | [place], [place] | | | | | | [address] | | | | | | [phone] | | | | | | | [...] RADIOLOGY | [address] | [place], [place] | [phone] | | | | [address] | | + + + + + documented in this encounter Visit Diagnoses Not on filedocumented in this encounter"
--- OUTSIDE RECORDS SUMMARY | ~2019-09-30 | XMS | Encounter Summary ---
Demographics + + + | Address | [address] | | | [place] [address] | + + + | Home Phone | | + + + | Preferred Language | Unknown | + + + | Marital Status | Single | + + + | Bahai Affiliation | NRP | + + + | Race | White | + + + | Ethnic Group | Not or | + + + Author + + + | Author | [facility] | + + + | Organization | [facility] | + + + | Address | Unknown | + + + | Phone | Unavailable | + + + Support + + +---------+ + | Name | Relationship | Address | Phone | + + +---------+ + | Liss [place] | ECON | Unknown | | + + +---------+ + Care Team Providers + +------+ + | Care Structurer Name | Role | Phone | + [...] | | | | | | [address] [place], [place] | | | | | | [address] | | | | | | [phone] | | | +--------+ + + + [...] perfume, lotions or powder. Remove any nail taiwanese from at least one fingernail. Do not [...] of your procedure. Surgery Check in Locations [facility] Day [facility], fourth floor Surgery Check in Time: Someone from your surgeon's office or [facility] will provide you with information regarding your [...] t is after office hours, call the [facility] scale and skip car operator at [phone] and ask them to page your do ctor. documented in this encounter Plan of Treatment Not on filedocumented as of this encounter Visit Diagnoses Not on filedocumented in this encounter"
--- OUTSIDE RECORDS SUMMARY | ~2019-09-30 | XMS | Encounter Summary ---
Demographics + + + | Address | [address] | | | [place] [address] | + + + | Home Phone | | + + + | Preferred Language | Unknown | + + + | Marital Status | Single | + + + | Protestant Affiliation | NRP | + + + | Race | White | + + + | Ethnic Group | Not or | + + + Author + + + | Author | [facility] | + + + | Organization | [facility] | + + + | Address | Unknown | + + + | Phone | Unavailable | + + + Support + + +---------+ + | Name | Relationship | Address | Phone | + + +---------+ + | Liss [place] | ECON | Unknown | | + + +---------+ + Care Team Providers + +------+ + | Care Gusset Ripper Name | Role | Phone | + [...] + + | 06/09/ | Telephone | [facility] | Jacob Espinal, | Discussion | | 2018 | | Center at [facility] [address] | [address] | | | | | [address] | [address] | | | | | Mailcode: [place] | [address] | | | | | [facility] | [place] [address] | | | | | and [facility], | [phone] | | | | | [facility] | | | | | | Floor [place], [place] | | | | | | [address] | | | | | | [phone] | | | +--------+ + + + [...]
--- OUTSIDE RECORDS SUMMARY | ~2019-09-30 | XMS | Encounter Summary ---
Demographics + + + | Address | [address] | | | [place] [address] | + + + | Home Phone [...] + + + | Author | [facility] | + + + | Organization | [facility] | + + + | Address | Unknown | + + + | Phone | Unavailable | + + + Support + + +---------+ + | Name | Relationship | Address | Phone | + + +---------+ + | Liss [place] | ECON | Unknown | | + + +---------+ + Care Team Providers + +------+ + | Care Network Security Administrator Name | Role | Phone | + +------+ + | Rudy Jamison MD | PCP | | + +------+ + Encounter Details +--------+ + + + + | Date | Type | Department | Care Team | Description | +--------+ + + + + | 06/08/ | Telephone | [place] [facility] | Jacob Espinal, | | | 2018 | | Center at [facility] [address] | [address] | | | | | [address] | [address] | | | | | Mailcode: [place] | [address] | | | | | [place] for [facility] | [place] [address] | | | | | and Gabriela, | [phone] | | | | | [facility] | | | | | | Floor [place], [place] | | | | | | [address] | | | | | | [phone] | | | +--------+ + + + [...]
--- OUTSIDE RECORDS SUMMARY | ~2019-09-30 | XMS | Encounter Summary ---
Demographics + + + | Address | [address] | | | [place] [address] | + + + | Home Phone | | + + + | Preferred Language | Unknown | + + + | Marital Status | Single | + + + | Taoism Affiliation | NRP | + + + | Race | White | + + + | Ethnic Group | Not or | + + + Author + + + | Author | [facility] | + + + | Organization | [facility] | + + + | Address | Unknown | + + + | Phone | Unavailable | + + + Support + + +---------+ + | Name | Relationship | Address | Phone | + + +---------+ + | Liss [place] | ECON | Unknown | | + + +---------+ + Care Team Providers + +------+ + | Care Heater Room Helper Name | Role | Phone | + [...] + + | 07/11/ | Telephone | [place] [facility] | Jacob Espinal, | Question | | 2017 | | Center at [facility] [address] | [address] | | | | | [address] | [address] | | | | | Mailcode: [place] | [address] | | | | | [facility] | [place] [address] | | | | | and [address]riela, | [phone] | | | | | Building | | | | | | Floor [place], [place] | | | | | | [address] | | | | | | [phone] | | | +--------+ + + + [...]
--- OUTSIDE RECORDS SUMMARY | ~2019-09-30 | XMS | Encounter Summary ---
Demographics + + + | Address | [address] | | | [place] [address] | + + + | Home Phone | | + + + | Preferred Language | Unknown | + + + | Marital Status | Single | + + + | Taoist Affiliation | NRP | + + + | Race | White | + + + | Ethnic Group | Not or | + + + Author + + + | Author | [facility] | + + + | Organization | [facility] | + + + | Address | Unknown | + + + | Phone | Unavailable | + + + Support + + +---------+ + | Name | Relationship | Address | Phone | + + +---------+ + | Liss [place] | ECON | Unknown | | + + +---------+ + Care Team Providers + +------+ + | Care Lead C Developer Name | Role | Phone | [...] Surgery | [facility] | Jacob Espinal, | EXCISIONAL BIOPSY OF | | 2018 | | Center for Health | MD [address] | RIGHT SEPTAL | | | | and Healing Surgery | [address] | LESION, POSSIBLE | | | | Center Admitting | OutPt [place] | SEPTOPLASTY | | | | Desk Located on the | [place] [address] | | | | | 4th floor [address] | [phone] | | | | | [address] [place], | | | | | | [place] [address] | | | +--------+---------+ + + + [...] Note | + + | Kylie HENDERSON, Jcaob Mahmood - 06/06/2017 12:34 PM PST Attending [...] | | | | | - PathologistDarius Hollsi | | | | | | MD [...] | | | | | | number [id number]. | | | | | | Received [...] | + + + + + | [facility] | [address] | [place] [address] | | | PATHOLOGY | [address] [...] 1253, Until 06/06/17 at | | | 0504, nausea/vomiting, 1st line | | + +---+ | | | + +---+ documented in this encounter
[~2019-09-30 19:02] MED LIST: DICYCLOMINE HCL20 MG PO; NORVASC10 MG PO
--- OUTSIDE RECORDS SUMMARY | 2019-09-30 19:04 | XMS ---
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 Events No recent Security Events currently on file CRITERIA MET - 6 ED Visits in 6 Months - [facility] - 3 Facilities in 90 Days - PDMP - [facility] - 2 Visits in 30 Days CARE PROVIDERS OSKAR Shaw Nurse Practitioner: Family Current PHONE: [phone] ISAI [facility] Current PHONE: [phone] Dee Urbano Marketing Technology Coordinator/[employer] 09/26/2019-Current PHONE: [phone] Asia Larson Marketing Technology Coordinator/[employer] 09/11/2018-Current PHONE: [phone] CHARMAINE EVERETTSLICK Internal [facility] Current PHONE: [phone] Momo Lebron Nurse Practitioner: Family Current PHONE: [phone] Care Guidelines exist for the following facilities: [facility] ( 07/31/2017 ) [facility] ( 07/31/2017 ) [facility] ( 07/25/2016 ) Care History Behavioral 01/20/2015 [facility] 01/20/2015 [facility] Patient has Drug Seeking Behaviors. Per [...] noted that with a review of the [place] Drug Monitoring site the patient had been getting multiple narcotic prescriptions from multiple providers and from multiple locations. Chart notes indicate the patient has a history of intravenous Methamphetamine abuse. Tammy VISIT COUNT (12 MO.) 1 [facility] [address] [place] [address] [place] TOTAL 79 NOTE: Visits indicate total known visits. 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 DIAGNOSES: - Cellulitis of left finger - Hand Pain - left finger infection 07/07/2019 21:38 [facility] TYPE: Emergency COMPLAINT: - PAIN IN LEFT FINGER(S) DIAGNOSES: - Other specified soft tissue disorders - FINGER PAIN - FINGER PAIN EMS BED - Methicillin resistant Staphylococcus aureus infection as the - Pain in left finger(s) - Tobacco use - Cellulitis of left finger - Local infection of the skin and subcutaneous tissue, unspecif 07/01/2019 00:24 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-inflammatories - Other jail (current) drug therapy - Nicotine dependence, cigarettes, uncomplicated - Pain in right arm - Pain in right arm 06/30/2019 19:21 [facility] [place] [facility] TYPE: Emergency DIAGNOSES: - right arm pain - Arm Pain - Chronic pain due to trauma - Pain in right arm 06/29/2019 23:11 [facility] [place] [facility] TYPE: Emergency DIAGNOSES: - Lesion of ulnar nerve, right upper limb - Right Arm Pain - R arm nerve pain 06/29/2019 17:27 [facility] [place] [facility] TYPE: Emergency COMPLAINT: - PAIN IN RIGHT ELBOW DIAGNOSES: - Tobacco use - Other specified postprocedural states - ARM PAIN MALU WOODRUFF - 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 [place] [facility] TYPE: Emergency COMPLAINT: - PAIN IN [...] - Pain in right elbow 06/15/2019 15:49 [facility] TYPE: Emergency COMPLAINT: - PAIN IN RIGHT ANKLE AND JOINTS OF RIGHT FOOT DIAGNOSES: - Anesthesia of skin - Pain in right arm - Malingerer [conscious simulation] - Paresthesia of skin - SHLDER PAIN PCP ZIM - Pain in right ankle and joints of right foot - Nicotine dependence, cigarettes, uncomplicated 06/09/2019 11:23 [facility] TYPE: Emergency DIAGNOSES: - Oral Swelling - Chronic pain syndrome - dental pain - Other specified disorders of teeth and supporting structures Plus 59 More Visits INPATIENT VISIT TRACKING (12 MO.) No inpatient visits to display in this time frame [email or web address]
[2019-09-30] MEDS ORDERED: TRAMADOL HCL50 MG PO (19:39)
== END 2019-09-30 19:53 | disposition home or self-care (01) ==
LOC: ED 19:02
DX: S92.311A Displaced fracture of first metatarsal bone, right foot, initial encounter for closed fracture (principal); I10 Essential (primary) hypertension; F17.200 Nicotine dependence, unspecified, uncomplicated; Z88.2 Allergy status to sulfonamides; Z79.899 Other long term (current) drug therapy; W06.XXXA Fall from bed, initial encounter
CPT/HCPCS: 99283